=== PATIENT | female | born 1975 | race Two or more races ===

== ENCOUNTER 2020-06-08 09:31 | Outpatient (REF) | payer OTHER, SELFPAY ==
--- NOTE | 2020-06-08 09:41 | XR_ITS ---
EXAMINATION: XR SHOULDER, LEFT XR LUMBAR SPINE CLINICAL INFORMATION: Fall from stairs and steps. COMPARISON: Lumbar spine 04/17/2017 TECHNIQUE: Three views lumbar spine and four views left shoulder. FINDINGS: LUMBAR SPINE: There is normal lumbar lordosis. The vertebral heights and alignment are normal. There is loss of L5-S1 disc height. The rest of the disc heights, vertebral heights and alignment is normal. No visible acute fracture or dislocation. No lytic process. The SI joints are symmetrical. LEFT SHOULDER: There is no visible acute fracture, dislocation or subluxation. The AC joint space is normal. The soft tissues are normal. XR/XR shoulder LT min 2V IMPRESSION: Mild degenerative disc changes L5-S1 disc level. Unremarkable left shoulder exam.
--- NOTE | 2020-06-08 09:41 | XR_ITS ---
EXAMINATION: XR SHOULDER, LEFT XR LUMBAR SPINE CLINICAL INFORMATION: Fall from stairs and steps. COMPARISON: Lumbar spine 04/17/2017 TECHNIQUE: Three views lumbar spine and four views left shoulder. FINDINGS: LUMBAR SPINE: There is normal lumbar lordosis. The vertebral heights and alignment are normal. There is loss of L5-S1 disc height. The rest of the disc heights, vertebral heights and alignment is normal. No visible acute fracture or dislocation. No lytic process. The SI joints are symmetrical. LEFT SHOULDER: There is no visible acute fracture, dislocation or subluxation. The AC joint space is normal. The soft tissues are normal. XR/XR lumbar spine 2-3V IMPRESSION: Mild degenerative disc changes L5-S1 disc level. Unremarkable left shoulder exam.
== END 2020-06-08 09:32 | disposition home or self-care (01) ==
LOC: HO.XRAY 09:31
PROVIDERS: PCP Internal Medicine; Visit Provider General Practice
DX: Z91.81 History of falling (principal)
CPT/HCPCS: 72100; 73030

== ENCOUNTER 2020-06-22 12:18 | Outpatient (REF) | payer OTHER, SELFPAY ==
--- NOTE | 2020-06-22 12:24 | XR_ITS ---
EXAMINATION: XR SACRUM AND COCCYX CLINICAL INFORMATION: Radiculopathy and sacral pain status post fall. COMPARISON: None TECHNIQUE: 2 views of the sacrum and 2 views of the coccyx were obtained. FINDINGS: There is mild loss of L5-S1 disc height with ventral and posterior spondylosis. No acute fracture, dislocation or subluxation seen in the sacrum or the coccygeal region. Presacral, postsacral and coccygeal soft tissues are normal. XR/XR sacrum coccyx min 2V IMPRESSION: Degenerative disc changes L5-S1 disc level with mild ventral spondylosis. No visible acute fracture or dislocation involving the sacrum or coccyx.
== END 2020-06-22 12:19 | disposition home or self-care (01) ==
LOC: HO.XRAY 12:18
PROVIDERS: PCP Internal Medicine; Visit Provider Nurse Practitioner Primary Care
DX: M54.18 Radiculopathy, sacral and sacrococcygeal region (principal); Z91.81 History of falling
CPT/HCPCS: 72220

== ENCOUNTER 2020-11-02 13:45 | Outpatient (REF) | payer OTHER, SELFPAY ==
--- NOTE | ~2020-11-02 | MM_ITS ---
EXAMINATION: MM DIAGNOSTIC DIGITAL BREAST TOMOSYNTHESIS, BILATERAL US DIAGNOSTIC ULTRASOUND BREAST, LEFT CLINICAL INFORMATION: 45-year-old with several months intermittent sharp left breast pain. No erythema, discharge, or palpable abnormality. Also follow-up probable small complicated cyst 2:00 position left breast. Due for yearly. Family history breast cancer, maternal aunt. The lifetime risk of breast cancer based on the Tyrer-Cuzick Model is 11%. COMPARISON: Mammography: 08/28/2018, 01/14/2018, 12/26/2017 (BI-RADS 0), 07/07/2016, targeted left breast ultrasound 01/14/2018, 08/28/2018. TECHNIQUE: Digital breast tomosynthesis is performed in both the craniocaudal and mediolateral oblique views along with computer-aided detection (CAD). Synthesized 2D images are generated from the tomosynthesis. Additional spot right MLO and standard right MLO views are obtained. Ultrasound left breast is targeted to the areas of clinical concern as noted by the patient. Patient is able to point areas of time of imaging. Areas of imaging included lower breasts, 6 to 12:00 position, and upper outer quadrant. Grayscale imaging and color Doppler are performed without and with harmonics. FINDINGS: There are scattered areas of fibroglandular density (ACR BI-RADS breast composition Category b). Parenchymal pattern is similar to prior studies. There is no developing density or interval mass or architectural abnormality. Small asymmetric density upper outer anterior left breast noted previously is no longer demonstrated with certainty. There are no abnormal calcifications. The axilla and skin contours are unremarkable. There is no skin thickening or coarsening of the Manny's ligaments. Ultrasound demonstrates no cystic or solid mass, architectural abnormality, or focal duct ectasia. There is no skin thickening or edema tracking in soft tissue planes. The small tubular complicated cyst previously demonstrated upper outer breast is no longer visualized. Results are discussed with the patient at time of visit. MM/MM tomosynthesis diagnostic BI IMPRESSION: 1. No mammographic evidence of malignancy or inflammatory changes. 2. Unremarkable left breast ultrasound. ASSESSMENT: BI-RADS 2: Benign RECOMMENDATION: 1. Patient's left breast pain should be managed based on the clinical impression. 2. Otherwise, routine annual screening mammography. This patient's information was entered into a reminder system with a target due date for their next mammogram.
== END 2020-11-02 13:46 | disposition home or self-care (01) ==
LOC: HO.MAMMO 13:45
PROVIDERS: Visit Provider Family Medicine
DX: N64.4 Mastodynia (principal)
CPT/HCPCS: 76642; 77062; 77066

== ENCOUNTER 2021-02-01 11:48 | Emergency (ER) | payer OTHER, SELFPAY ==
[2021-02-01 12:57] VITALS: BP 145/85; PULSE 102; RESP 18; TEMP 37.5; O2SAT 100; BMI 31.1
== END 2021-02-01 15:54 | disposition left against medical advice (07) ==
PROVIDERS: Emergency Provider Emergency Medicine; PCP Internal Medicine
DX: M79.10 Myalgia, unspecified site (principal)
CPT/HCPCS: 99281; 99282

== ENCOUNTER 2021-02-02 07:45 | Emergency (ER) | payer OTHER, SELFPAY ==
--- NOTE | ~2021-02-02 | US_ITS ---
EXAMINATION: US ABDOMEN COMPLETE CLINICAL INFORMATION: Nausea and vomiting. Upper abdominal pain. COMPARISON: Abdominal ultrasound dated 07/07/[address] abdomen/pelvis dated 12/19/2014 TECHNIQUE: Real-time imaging of the abdominal viscera. FINDINGS: PANCREAS: The visualized pancreatic head and body are unremarkable. The tail is obscured by overlying bowel gas. ABDOMINAL AORTA: The proximal, mid, and distal segments are normal in caliber. INFERIOR VENA CAVA: Visualized portions are normal. LIVER: Mildly enlarged measuring up to 21.1 cm. The liver contour is normal. There is diffuse increased liver parenchymal echogenicity, consistent with hepatic steatosis. No focal hepatic lesion. There is no intrahepatic biliary duct dilatation seen. GALLBLADDER: Normal. The gallbladder is physiologically distended without evidence of stones, sludge, polyps, wall thickening or pericholecystic fluid. COMMON BILE DUCT: Normal in caliber measuring 0.3 cm in diameter. RIGHT KIDNEY: Redemonstration of a right renal stone measuring up to 0.6 cm, unchanged. No hydronephrosis. No new renal calculi or focal parenchymal lesions. The kidney measures 12.8 cm in maximum dimension. LEFT KIDNEY: Normal. No hydronephrosis. No renal calculi or focal parenchymal lesions. The kidney measures 12.9 cm in maximum dimension. SPLEEN: Normal. The spleen measures 12.9 cm in maximum dimension. FREE FLUID: None. US/US abdomen complete IMPRESSION: 1. Mild hepatomegaly and hepatic steatosis, unchanged. No new hepatic parenchymal lesion or biliary ductal dilatation. 2. Stable right-sided renal stone. No hydronephrosis. 3. Otherwise unremarkable examination.
--- NOTE | ~2021-02-02 | CT_ITS ---
EXAMINATION: CT ABDOMEN AND PELVIS WITH CONTRAST CLINICAL INFORMATION: Right upper and lower quadrant abdominal pain for 3 days. Nausea, vomiting, diarrhea. COMPARISON: Abdominal ultrasound done earlier the same day. Pelvic ultrasound dated 07/05/2018. CT abdomen/pelvis dated 12/19/2014. TECHNIQUE: Multidetector volumetric images were obtained from the superior aspect of the liver through the pubic symphysis following administration 85 mL of Omnipaque 350 intravenous contrast. Sagittal and coronal reformatted images were obtained on the technologist's workstation. Oral contrast: No This CT examination was performed using dose optimization techniques as appropriate, variously including the following: *Automated exposure control *Adjustment of mA and/or kV according to patient size (this includes techniques or standardized protocols for targeted exams where dose is matched to indication/reason for exam; i.e. extremities or head) *Use of iterative reconstruction technique DLP: 658 mGy-cm. FINDINGS: LUNG BASES: The visualized lung bases are unremarkable. LIVER, GALLBLADDER, AND BILIARY TREE: The liver is normal in size and shape. Parenchymal hypoattenuation, consistent with steatosis. No focal hepatic lesion or biliary ductal dilatation is present. The gallbladder is unremarkable with no evidence of radiopaque gallstones, gallbladder wall thickening, or obvious pericholecystic inflammatory changes. PANCREAS: Unremarkable. SPLEEN: Unremarkable. ADRENAL GLANDS: Unremarkable. KIDNEYS AND URETERS: The kidneys are normal in size, shape, and attenuation. Stable right midpole renal stone measuring approximately 0.6 cm and unchanged when compared to the prior examination. This is located approximately 8.2 cm from the posterior axillary line. No new renal or ureteral stone. No hydronephrosis or hydroureter. No perinephric stranding. BLADDER: Partially distended and unremarkable. GASTROINTESTINAL TRACT: There is minimal, vague fat stranding adjacent to the cecum with mild wall thickening, new when compared to the prior examination. Findings could represent mild colitis in the appropriate clinical setting. No evidence of perforation or abscess formation. Unremarkable adjacent appendix. No small or large bowel obstruction. PERITONEAL CAVITY: No intra-abdominal free air or free fluid. ABDOMINAL WALL: No significant hernia is appreciated. LYMPH NODES: Subcentimeter mesenteric lymph nodes adjacent to the cecum, increased in size when compared to the prior examination and may be reactive. No significant lymphadenopathy. VASCULAR: Unremarkable. PELVIC VISCERA: Redemonstration of a fibroid uterus. OSSEOUS STRUCTURES: Unremarkable. CT/CT abdomen pelvis w con IMPRESSION: 1. Minimal, vague fat stranding adjacent to the cecum where there is mild wall thickening, new when compared to the prior examination. Slightly more prominent adjacent subcentimeter mesenteric lymph nodes. Findings could represent mild colitis in the proper clinical setting. No evidence of perforation or abscess formation. Unremarkable adjacent appendix. 2. Hepatic steatosis. No new hepatic parenchymal lesion or biliary ductal dilatation. 3. Redemonstration of a fibroid uterus.
[2021-02-02 08:08] VITALS: BP 152/89; PULSE 107; RESP 16; TEMP 37.5; O2SAT 95
[2021-02-02 08:17] VITALS: BP 152/89; PULSE 104; RESP 16; O2SAT 96; BMI 32.1
[2021-02-02 08:54] VITALS: RESP 18
[2021-02-02] MEDS: 0.9 % Sodium Chloride 1,000 ML 999 ML IVCONT (08:54)
[2021-02-02] MEDS: Morphine Sulfate 4 MG/ML CARTRIDGE IVPUSH (08:54)
[2021-02-02] MEDS: Acetaminophen 325 MG TABLET 975 MG PO (08:54)
[2021-02-02] MEDS: ondansetron HCL 4 MG/2 ML VIAL IVPUSH ×2 (08:54→12:29)
[2021-02-02 08:58] LABS: MANUAL DIFF FLAG NO
[2021-02-02 09:03] LABS: Basophils Percent Auto 0.5 % (0-2); Eosinophils Absolute Auto 0.1 X10*3/uL (0.0-0.4); Eosinophils Percent Auto 0.9 % (0-4); Hematocrit 39.7 % (37-47); Hemoglobin 13.8 g/dl (12.0-16.0); Imm Gran Abs Auto 0.03 X10*3/uL (0.00-0.03); Imm Gran Pct Auto 0.3 % (0.0-0.4); Lymphocytes Absolute Auto 1.1 X10*3/uL (1.2-4.9); Lymphocytes Percent Auto 13.1 % (20-40); Mean Corpuscular HGB Conc 34.8 g/dl (31.0-35.0); Mean Corpuscular Hemoglobin 28.8 pg (27.0-33.0); Mean Corpuscular Volume 82.7 fL (80-98); Monocytes Absolute Auto 0.8 X10*3/uL (0.1-1.2); Monocytes Percent Auto 9.4 % (2-11); Neutrophils Absolute Auto 6.6 X10*3/uL (2.0-8.3); Neutrophils Percent Auto 75.8 % (45-73); Platelet Count 221 X10*3/uL (160-400); Red Cell Distribution Width 13.1 % (11.0-16.0); White Blood Count 8.7 X10*3/uL (4.8-10.8)
[2021-02-02 09:10] LABS: INTERNATIONAL NORM RATIO 1.2 (0.9-1.1); Prothrombin Time 13.5 SEC (9.9-13.0)
[2021-02-02 09:24] LABS: Lactic Acid 0.9 mmol/L (0.5-2.0)
--- NOTE | 2021-02-02 09:32 | ED_ITS ---
HPI - Abdominal Pain General Chief Complaint: General Medical Stated Complaint: vomiting Time Seen by Provider: 02/02/21 08:08 Source: patient Mode of arrival: ambulatory Limitations: no limitations History of Present Illness HPI narrative: 45-year-old female with a past medical history of GERD, hypertension, tachycardia, asthma, anxiety, depression and chronic back pain presenting to the ED with complaints of chills, body ache, fatigue, intermittent headaches, nausea/vomiting with upper abdominal pain and loose stools although not diarrhea for the past 3 days worse today. Reports the pain as sharp stabbing pain in the right upper quadrant/epigastric area. Reports she is vaccinated for COVID. Denies any measured fevers, dizziness, black or bloody emesis, chest pain, shortness of breath, palpitations, dyspnea on exertion, orthopnea, radiation of the abdominal pain, worsening back pain, dysuria, hematuria, abnormal vaginal discharge, black or bloody stools, recent travel or sick contacts or possible bad food exposure or any other symptoms complaints or concerns at this time. MD elicited complaint: abdominal pain Onset (ago): day(s) (Three days worse today) Pain Consistency: constant Location: epigastric, LUQ and RUQ Severity: moderate Quality: stabbing, aching and sharp Radiation: none Migration to: no migration Exacerbating factors: eating Relieving factors: nothing Associated symptoms: nausea, vomiting, diarrhea and chills Related Data Previous Rx's Medication Instructions Recorded omeprazole 10 mg capsule,delayed 10 mg PO DAILY 90 Days #90 cap 06/08/20 release acetaminophen 500 mg tablet 1,000 mg PO QID PRN #14 tab 02/02/21 (Tylenol Extra Strength) ciprofloxacin HCl 750 mg tablet 750 mg PO BID 7 Days #14 tab 02/02/21 metronidazole 500 mg tablet 500 mg PO BID 7 Days #14 tab 02/02/21 (Flagyl) ondansetron HCl 4 mg tablet 4 mg PO Q8H PRN #14 tab 02/02/21 (Zofran) oxycodone 5 mg tablet 5 mg PO BID PRN #10 tab 02/02/21 Allergies Allergy/AdvReac Type Severity Reaction Status Date / Time famotidine [FAMOTIDINE] Allergy Mild HEADACHES Unverified 03/04/20 14:59 ENVIRONMENTAL Allergy Intermediate NASAL Uncoded 03/04/20 14:59 CONGESTION Review of Systems Review of Systems Constitutional : Positive chills/fatigue/malaise, No Weight loss, No Fever, No Night Sweats ENT/Mouth: No ear pain, No sore throat, No Difficulty swallowing Cardiovascular : No Chest Pain, No SOB, No Dyspnea on Exertion, No Orthopnea, No Edema, No Palpitations Respiratory : No Cough, No Sputum, No Wheezing, No Dyspnea Gastrointestinal : Positive nausea/vomiting/abdominal pain/loose stools, No Diarrhea, No blood streaked emesis, No coffee-ground emesis, No gross hematemesis, No blood streak stool, No gross hematochezia, No Melena Genitourinary : No irregular bleeding, No Dysuria, No Urinary Frequency, No Hematuria,No Urinary Incontinence, No Urgency, No Flank Pain Musculoskeletal : No joint pain, No Myalgias, No Joint Swelling Skin : No Skin Lesions, No rash Neuro : No Weakness, No Numbness, No Paresthesias, No Loss of Consciousness, No Dizziness, No Headache Psych : No Social Issues, Heme/Lymph: No Bruising, No Bleeding,No Lymphadenopathy Endocrine : No Polyuria, No Polydipsia, No Temperature Intolerance Yes all other systems are reviewed and are negative Physical Exam Vital Signs: Vital Signs: Last Vital Signs Temp 99.5 F 02/02/21 08:08 Pulse 85 02/02/21 11:17 Resp 16 02/02/21 11:17 BP 115/70 02/02/21 11:17 Pulse Ox 99 02/02/21 11:17 Body Mass Index 32.1 vital signs have been reviewed as normal and appeared to be correct. Blood pressure hypertensive 152/89 Heart rate tachycardic at 107. Respiration rate normal. Temperature normal. Oxygen saturation normal. Appearance: Alert. Oriented X3. No acute distress. Head: Normal external exam. Normocephalic. Eyes: PERRLA. EOMI. Conjunctiva and sclera normal. Eyelids normal. ENT: Pharynx normal. Uvula midline. Moist mucous membranes. Neck: Normal inspection. Neck supple. FROM. No adenopathy. No meningeal signs. CVS: Normal heart rate and rhythm. Heart sound normal. No murmurs noted. Pulses normal throughout. Respiratory: No respiratory distress. Painless inspiration. Breath sounds normal. No wheezes/rales/rhonchi noted. Chest nontender. No accessory muscle usage noted or decreased air movement noted. Abdomen: Soft and moderate tenderness to palpation to epigastric/right upper quadrant/left upper quadrant with guarding. Nondistended. No rigidity. Bowel sounds normal in all 4 quadrants. No distention noted. No organomegaly noted. No visible injury noted. No rebound tenderness. Negative Rovsing sign. Negative obturator's sign. Negative psoas sign. Negative Veloz sign. Back: No CVA tenderness. Full range of motion noted. Skin: Skin warm and dry. Normal skin color. Normal skin turgor. No rashes/lesions/lacerations noted. Extremities: Extremities exhibit normal range of motion. Extremities nontender. Neuro: Oriented X 3. No motor deficit. No sensory deficit. Reflexes normal. Normal steady gait. Course Course Course Narrative: 8:30am - 45-year-old female with a past medical history of GERD, hypertension, tachycardia, asthma, anxiety, depression and chronic back pain presenting to the ED with complaints of chills, body ache, fatigue, intermittent headaches, nausea/vomiting with upper abdominal pain and loose stools although not diarrhea for the past 3 days worse today. Reports the pain as sharp stabbing pain in the right upper quadrant/epigastric area. Plan: Labs, UA, abdominal ultrasound. Provide 4 mg of Zofran and 4 mg of morphine and re-evaluate. Reevaluation(s) Reevaluation #1: - labs reviewed and patient noted to have a potassium of 2.9. BUN of 8. Random glucose 121. ALT 43. Otherwise all other labs are within normal limits. Patient negative for COVID/RSV/flu. - abdominal ultrasound revealed mild hepatomegaly and hepatic steatosis un changed otherwise no other acute processes were noted. Only chronic changes were noted. - when I went back into the room the patient reported that her abdominal pain had moved to the right lower quadrant/right flank therefore at this time will obtain a CT scan of abdomen and pelvis. - will also provide potassium both p.o. and IV. - still awaiting UA. Will re-evaluate. Time: 10:10 Reevaluation #2: - UA within normal limits no evidence of UTI. - CT scan abdomen pelvis with IV contrast revealed mild colitis and chronic ahmadi ges otherwise no other acute processes. - therefore will DC home with Cipro and Flagyl and symptomatic treatment instructions to return if any new or worsening symptoms to follow up with primary care provider. Patient understands agrees with this plan. Time: 12:13 MDM - Abdominal Pain Medical Records Attestation: I reviewed the patient's medical records. Lab Data Attestation: I reviewed the patient's lab results. Result diagrams: 02/02/21 08:50 02/02/21 08:50 Labs: Lab Results 02/02/21 02/02/21 02/02/21 Range/Units 08:49 08:50 08:50 WBC 8.7 (4.8-10.8) X10*3/uL RBC 4.80 (4.20-5.50) X10*6/uL Hgb 13.8 (12.0-16.0) g/dl Hct 39.7 (37-47) % MCV 82.7 (80-98) fL MCH 28.8 (27.0-33.0) pg MCHC 34.8 (31.0-35.0) g/dl RDW 13.1 (11.0-16.0) % Plt Count 221 (160-400) X10*3/uL MPV 10.0 (9.4-12.3) fL Immature Gran % (Auto) 0.3 (0.0-0.4) % Neut % (Auto) 75.8 H (45-73) % Lymph % (Auto) 13.1 L (20-40) % [place] % (Auto) 9.4 (2-11) % Eos % (Auto) 0.9 (0-4) % Baso % (Auto) 0.5 (0-2) % Lymph # (Auto) 1.1 L (1.2-4.9) X10*3/uL [place] # (Auto) 0.8 (0.1-1.2) X10*3/uL Eos # (Auto) 0.1 (0.0-0.4) X10*3/uL Baso # (Auto) 0.0 (0.0-0.2) X10*3/uL Abs Immat Gran (auto) 0.03 (0.00-0.03) X10*3/uL Absolute Neuts (auto) 6.6 (2.0-8.3) X10*3/uL Absolute Nucleated RBC 0.000 (0.0-0.012) X10*3/uL Nucleated RBC % (auto) 0.0 (0.0-0.2) /100WBC PT 13.5 H (9.9-13.0) SEC INR 1.2 H (0.9-1.1) Sodium (135-145) mmol/L Potassium (3.3-5.1) mmol/L Chloride (96-108) mmol/L Carbon Dioxide (22-29) mmol/L Anion Gap (12-20) BUN (9-16) mg/dL Creatinine (0.5-1.4) mg/dL Estim Creat Clear Calc Estimated GFR Random Glucose (60-115) mg/dL Lactic Acid 0.9 (0.5-2.0) mmol/L Calcium (8.4-10.2) mg/dL Magnesium (1.6-2.6) mg/dL Total Bilirubin (0.0-1.0) mg/dL AST (5-31) U/L ALT (0-31) U/L Alkaline Phosphatase (39-117) U/L Total Protein (6.5-8.0) g/dL Albumin (3.5-5.0) g/dL Lipase (8-78) U/L Urine Color Urine Appearance Urine pH (5.0-8.0) Ur Specific [place] (1.005-1.025) Urine Protein (NEG-TRACE) MG/DL Urine Glucose (UA) (NEG) MG/DL Urine Ketones (NEG) MG/DL Urine Blood (NEG) Urine Nitrite (NEG) Ur Leukocyte Esterase (NEG) Coronavirus (PCR) (Negative) Influenza Type A (PCR) (Negative) Influenza Type B (PCR) (Negative) RSV RNA Qual (PCR) (Negative) 02/02/21 02/02/21 02/02/21 Range/Units 08:50 08:51 11:58 WBC (4.8-10.8) X10*3/uL RBC (4.20-5.50) X10*6/uL Hgb (12.0-16.0) g/dl Hct (37-47) % MCV (80-98) fL MCH (27.0-33.0) pg MCHC (31.0-35.0) g/dl RDW (11.0-16.0) % Plt Count (160-400) X10*3/uL MPV (9.4-12.3) fL Immature Gran % (Auto) (0.0-0.4) % Neut % (Auto) (45-73) % Lymph % (Auto) (20-40) % [place] % (Auto) (2-11) % Eos % (Auto) (0-4) % Baso % (Auto) (0-2) % Lymph # (Auto) (1.2-4.9) X10*3/uL [place] # (Auto) (0.1-1.2) X10*3/uL Eos # (Auto) (0.0-0.4) X10*3/uL Baso # (Auto) (0.0-0.2) X10*3/uL Abs Immat Gran (auto) (0.00-0.03) X10*3/uL Absolute Neuts (auto) (2.0-8.3) X10*3/uL Absolute Nucleated RBC (0.0-0.012) X10*3/uL Nucleated RBC % (auto) (0.0-0.2) /100WBC PT (9.9-13.0) SEC INR (0.9-1.1) Sodium 136 (135-145) mmol/L Potassium 2.9 L (3.3-5.1) mmol/L Chloride 96 (96-108) mmol/L Carbon Dioxide 28 (22-29) mmol/L Anion Gap 15 (12-20) BUN 8 L (9-16) mg/dL Creatinine 0.58 (0.5-1.4) mg/dL Estim Creat Clear Calc 115.1 Estimated GFR > 60 Random Glucose 121 H (60-115) mg/dL Lactic Acid (0.5-2.0) mmol/L Calcium 8.7 (8.4-10.2) mg/dL Magnesium 2.0 (1.6-2.6) mg/dL Total Bilirubin 0.5 (0.0-1.0) mg/dL AST 22 (5-31) U/L ALT 43 H (0-31) U/L Alkaline Phosphatase 66 (39-117) U/L Total Protein 6.9 (6.5-8.0) g/dL Albumin 4.0 (3.5-5.0) g/dL Lipase 17 (8-78) U/L Urine Color YELLOW Urine Appearance CLEAR Urine pH 7.0 (5.0-8.0) Ur Specific [place] <= 1.005 (1.005-1.025) Urine Protein TRACE (NEG-TRACE) MG/DL Urine Glucose (UA) NEG (NEG) MG/DL Urine Ketones NEG (NEG) MG/DL Urine Blood NEG (NEG) Urine Nitrite NEG (NEG) Ur Leukocyte Esterase NEG (NEG) Coronavirus (PCR) NEGATIVE (Negative) Influenza Type A (PCR) NEGATIVE (Negative) Influenza Type B (PCR) NEGATIVE (Negative) RSV RNA Qual (PCR) NEGATIVE (Negative) Imaging Data Abdominal ultrasound: Attestation: I personally reviewed and interpreted this imaging study as follows: Radiologist's impression: FINDINGS: PANCREAS: The visualized pancreatic head and body are unremarkable. The tail is obscured by overlying bowel gas. ABDOMINAL AORTA: The proximal, mid, and distal segments are normal in caliber. INFERIOR VENA CAVA: Visualized portions are normal. LIVER: Mildly enlarged measuring up to 21.1 cm. The liver contour is normal. There is diffuse increased liver parenchymal echogenicity, consistent with hepatic steatosis. No focal hepatic lesion. There is no intrahepatic biliary duct dilatation seen. GALLBLADDER: Normal. The gallbladder is physiologically distended without evidence of stones, sludge, polyps, wall thickening or pericholecystic fluid. COMMON BILE DUCT: Normal in caliber measuring 0.3 cm in diameter. RIGHT KIDNEY: Redemonstration of a right renal stone measuring up to 0.6 cm, unchanged. No hydronephrosis. No new renal calculi or focal parenchymal lesions. The kidney measures 12.8 cm in maximum dimension. LEFT KIDNEY: Normal. No hydronephrosis. No renal calculi or focal parenchymal lesions. The kidney measures 12.9 cm in maximum dimension. SPLEEN: Normal. The spleen measures 12.9 cm in maximum dimension. FREE FLUID: None. US/US abdomen complete IMPRESSION: 1. Mild hepatomegaly and hepatic steatosis, unchanged. No new hepatic parenchymal lesion or biliary ductal dilatation. ? 2. Stable right-sided renal stone. No hydronephrosis. ? 3. Otherwise unremarkable examination. CT scan abdomen and pelvis with IV contrast: Attestation: I personally reviewed and interpreted this imaging study as follows: Radiologist's impression: FINDINGS: LUNG BASES: The visualized lung bases are unremarkable.? LIVER, GALLBLADDER, AND BILIARY TREE: The liver is normal in size and shape. Parenchymal hypoattenuation, consistent with steatosis. No focal hepatic lesion or biliary ductal dilatation is present. The gallbladder is unremarkable with no evidence of radiopaque gallstones, gallbladder wall thickening, or obvious pericholecystic inflammatory changes.? PANCREAS: Unremarkable.? SPLEEN: Unremarkable.? ADRENAL GLANDS: Unremarkable.? KIDNEYS AND URETERS: The kidneys are normal in size, shape, and attenuation. Stable right midpole renal stone measuring approximately 0.6 cm and unchanged when compared to the prior examination. This is located approximately 8.2 cm from the posterior axillary line. No new renal or ureteral stone. No hydronephrosis or hydroureter. No perinephric stranding. ? BLADDER: Partially distended and unremarkable.? GASTROINTESTINAL TRACT: There is minimal, vague fat stranding adjacent to the cecum with mild wall thickening, new when compared to the prior examination. Findings could represent mild colitis in the appropriate clinical setting. No evidence of perforation or abscess formation. Unremarkable adjacent appendix. No small or large bowel obstruction. PERITONEAL CAVITY: No intra-abdominal free air or free fluid.? ABDOMINAL WALL: No significant hernia is appreciated.? LYMPH NODES: Subcentimeter mesenteric lymph nodes adjacent to the cecum, increased in size when compared to the prior examination and may be reactive. No significant lymphadenopathy. VASCULAR: Unremarkable. PELVIC VISCERA: Redemonstration of a fibroid uterus.? OSSEOUS STRUCTURES: Unremarkable.? CT/CT abdomen pelvis w con IMPRESSION: 1. Minimal, vague fat stranding adjacent to the cecum where there is mild wall thickening, new when compared to the prior examination. Slightly more prominent adjacent subcentimeter mesenteric lymph nodes. Findings could represent mild colitis in the proper clinical setting. No evidence of perforation or abscess formation. Unremarkable adjacent appendix. ? 2. Hepatic steatosis. No new hepatic parenchymal lesion or biliary ductal dilatation. ? 3. Redemonstration of a fibroid uterus. Discharge Plan Discharge Clinical Impression: Colitis, Acute hypokalemia Patient Disposition: Home, Self-Care Instructions: Colitis (ED), Hypokalemia (ED), Potassium Content of Foods List (ED) Additional Instructions: You should have repeat blood work especially potassium level within 2-3 days by your primary care provider. Prescriptions: New ondansetron HCl [Zofran] 4 mg tablet 4 mg PO Q8H PRN (Reason: nausea and vomiting) Qty: 14 RF: 0 acetaminophen [Tylenol Extra Strength] 500 mg tablet 1,000 mg PO QID PRN (Reason: fever or pain) Qty: 14 RF: 0 oxycodone 5 mg tablet 5 mg PO BID PRN (Reason: pain) Qty: 10 RF: 0 ciprofloxacin HCl 750 mg tablet 750 mg PO BID 7 Days Qty: 14 RF: 0 metronidazole [Flagyl] 500 mg tablet 500 mg PO BID 7 Days Qty: 14 RF: 0 No Action omeprazole 10 mg capsule,delayed release(DR/EC) 10 mg PO DAILY 90 Days Qty: 90 RF: 1 Referrals: Jamila Robledo MD [Primary Care Provider] - 2 days Print Language: Spanish [facility] Past Medical History Attestation statement: The following information was validated with the patient. Medical History Anxiety Asthma Hypertension Tachycardia Social History Social History Alcohol intake: never Use of substances other than those prescribed or required for medical reasons: No Advance Directives: No Advance Directives Information Provided: No Patient : No
[2021-02-02 09:41] LABS: Influenza A PCR NEGATIVE (Negative); Influenza B PCR NEGATIVE (Negative); Resp Syncy Virus RNA Qual PCR NEGATIVE (Negative); SARS COV2 PCR INHOUSE NEGATIVE (Negative)
[2021-02-02 09:47] LABS: Alanine Aminotransferase 43 U/L (0-31); Alkaline Phosphatase 66 U/L (39-117); Aspartate Amino Transferase 22 U/L (5-31); Blood Urea Nitrogen 8 mg/dL (9-16); Calcium 8.7 mg/dL (8.4-10.2); Creatinine Clr Calc Pharmacy 115.1; Estimated Glomerular Filt Rate > 60; Glucose Random 121 mg/dL (60-115); Lipase 17 U/L (8-78); Total Protein 6.9 g/dL (6.5-8.0)
[2021-02-02 09:58] LABS: Anion Gap 15 (12-20); Bilirubin Total 0.5 mg/dL (0.0-1.0); Carbon Dioxide 28 mmol/L (22-29); Chloride 96 mmol/L (96-108); Potassium 2.9 mmol/L (3.3-5.1); Sodium 136 mmol/L (135-145)
[2021-02-02] MEDS: Potassium Chloride/H20 10 MEQ/100 ML PIGGYBACK 100 MEQ IV ×2 (10:32→11:49)
[2021-02-02] MEDS: Potassium Chloride ER 20 MEQ TAB.ER.PRT PO (10:32)
[2021-02-02] MEDS: iohexoL 350 MG/ML 100 ML INFUS..BTL IV (11:11)
[2021-02-02 11:17] VITALS: BP 115/70; PULSE 85; RESP 16; O2SAT 99
[2021-02-02 12:05] LABS: Glucose Urine UA NEG (NEG); Leukocyte Esterase Urine NEG (NEG); Nitrite Urine NEG (NEG); Specific Gravity - Urine <= 1.005 (1.005-1.025); Urine Blood NEG (NEG); Urine Ketones NEG (NEG); Urine Protein TRACE MG/DL (NEG-TRACE)
[2021-02-02 12:08] LABS: Appearance Urine CLEAR; Color Urine YELLOW
[2021-02-02 12:31] LABS: UPreg QC Valid YES; Urine Pregnancy NEGATIVE (NEGATIVE)
== END 2021-02-02 12:49 | disposition home or self-care (01) ==
PROVIDERS: Physician Assistant Medical; Emergency Provider Emergency Medicine; PCP Internal Medicine
DX: K52.9 Noninfective gastroenteritis and colitis, unspecified (principal); E87.6 Hypokalemia; Z20.822 Contact with and (suspected) exposure to COVID-19; R50.9 Fever, unspecified; I10 Essential (primary) hypertension
CPT/HCPCS: 0241U; 36415; 74177; 76700; 80053; 81003; 81025; 83605; 83690; 83735; 85025; 85610; 87040; 96361; 96365; 96366; 96375; 96376; 99284; J2270; J2405; Q9967

== ENCOUNTER → 2021-08-04 08:49 | Outpatient (BNVA) | payer OTHER, SELFPAY | PROVIDERS: PCP Internal Medicine; Referring Provider Internal Medicine; Visit Provider Internal Medicine Gastroenterology | DX: Z12.11 Encounter for screening for malignant neoplasm of colon (principal); K21.9 Gastro-esophageal reflux disease without esophagitis; K59.09 Other constipation; K74.60 Unspecified cirrhosis of liver; K62.5 Hemorrhage of anus and rectum; R10.13 Epigastric pain; R14.0 Abdominal distension (gaseous); R11.0 Nausea; Z80.0 Family history of malignant neoplasm of digestive organs | CPT/HCPCS: 99212 ==

== ENCOUNTER 2021-08-17 12:15 | Outpatient (REF) | payer OTHER, SELFPAY ==
--- NOTE | ~2021-08-17 | XR_ITS ---
EXAMINATION: XR HAND, RIGHT CLINICAL INFORMATION: Fall COMPARISON: None TECHNIQUE: PA, lateral, and oblique views of the right hand. FINDINGS: There is a small bone fragment of the tip of ulnar styloid process likely old fracture. The exact site of origin is not visualized are not known. Otherwise rest the visualized radioulnar carpal alignment intercarpal alignment and carpal metacarpal joint alignment is normal. XR/XR hand RT min 3V IMPRESSION: Small osseous body at the tip of ulnar styloid process likely old fracture fragment or extraosseous bony density. The exact site of origin is not known. There is no acute fracture or dislocation seen. The soft tissues are normal.
== END 2021-08-17 12:16 | disposition home or self-care (01) ==
LOC: HO.HMGCX 12:15
PROVIDERS: Visit Provider Physician Assistant
DX: M79.641 Pain in right hand (principal); W19.XXXA Unspecified fall, initial encounter
CPT/HCPCS: 73130

== ENCOUNTER 2021-11-16 12:57 | Outpatient (REF) | payer OTHER, SELFPAY ==
--- NOTE | ~2021-11-16 | XR_ITS ---
EXAMINATION: XR WRIST, LEFT CLINICAL INFORMATION: Pain left wrist COMPARISON: Radiographs left forearm 02/07/2019 TECHNIQUE: PA, lateral, and oblique views of the left wrist. FINDINGS: No acute or healing fracture, dislocation, or destructive process. The ulnar variance is neutral. Normal bony mineralization. Pronator quadratus fat pad appears normal. No joint narrowing or erosive change or chondrocalcinosis. XR/XR wrist LT min 3V IMPRESSION: Normal left wrist.
== END 2021-11-16 12:58 | disposition home or self-care (01) ==
LOC: HO.XRAY 12:57
PROVIDERS: Absent Provider Internal Medicine; PCP Internal Medicine; Visit Provider Emergency Medicine
DX: M25.532 Pain in left wrist (principal)
CPT/HCPCS: 73110

== ENCOUNTER 2021-11-17 09:48 | Outpatient (REF) | payer OTHER, SELFPAY ==
[2021-11-17 10:42] LABS: C Reactive Protein 0.31 mg/dL (< or = 0.50); Uric Acid 4.8 mg/dL (2.4-5.7)
[2021-11-19 05:02] LABS: Lyme Abs Screen <0.90 index
== END 2021-11-17 09:49 | disposition home or self-care (01) ==
LOC: HO.LAB 09:48
PROVIDERS: Absent Provider Internal Medicine; PCP Internal Medicine; Visit Provider Emergency Medicine
DX: M25.532 Pain in left wrist (principal)
CPT/HCPCS: 36415; 84550; 86140; 86617; 86618

== ENCOUNTER 2022-05-01 10:27 | Outpatient (REF) | payer OTHER, SELFPAY ==
--- NOTE | ~2022-05-01 | MM_ITS ---
EXAMINATION: MM DIAGNOSTIC DIGITAL BREAST TOMOSYNTHESIS, BILATERAL US DIAGNOSTIC ULTRASOUND BREAST, LEFT CLINICAL INFORMATION: Due for yearly. Also recent pain, small skin discoloration, and small superficial nodularity inferior medial left breast near inframammary fold. Skin discoloration has resolved. COMPARISON: Mammography: 11/02/2020, 08/28/2018, 01/14/2018, 12/26/2017, 07/07/2016 TECHNIQUE: Digital breast tomosynthesis is performed in both the craniocaudal and mediolateral oblique views along with computer-aided detection (CAD). Synthesized 2D images are generated from the tomosynthesis. Ultrasound left breast is targeted to the area of clinical concern. Patient is able to point to the area inferior medial breast at time of imaging. Patient also provided digital image of recent skin discoloration. Grayscale imaging and color Doppler are performed without and with harmonics. FINDINGS: There are scattered areas of fibroglandular density (ACR BI-RADS breast composition Category b). Parenchymal pattern is similar to prior exams and there is no developing density or interval mass or architectural abnormality. No abnormal calcifications. No obvious skin thickening or coarsening of the Manny's ligaments. The axilla are unremarkable. Ultrasound left breast demonstrates no cystic or solid mass or architectural abnormality. No definite intradermal lesion. No hyperemia on color Doppler. Visual inspection shows no skin discoloration in the area of recent concern. Results are discussed with the patient at time of visit. MM/MM tomosynthesis diagnostic BI IMPRESSION: -No mammographic evidence of malignancy or inflammatory changes. -Unremarkable left breast ultrasound. ASSESSMENT: BI-RADS 2: Benign RECOMMENDATION: 1. Patient should be managed based on the clinical impression. 2. Otherwise, routine annual screening mammography. This patient's information was entered into a reminder system with a target due date for their next mammogram.
== END 2022-05-01 10:28 | disposition home or self-care (01) ==
LOC: HO.MAMMO 10:27
PROVIDERS: PCP Internal Medicine; Visit Provider Registered Nurse
DX: N63.24 Unspecified lump in the left breast, lower inner quadrant (principal)
CPT/HCPCS: 76642; 77062; 77066

== ENCOUNTER 2022-06-11 06:26 | Emergency (ER) | payer OTHER, SELFPAY ==
[2022-06-11 07:21] VITALS: BP 137/86; PULSE 79; RESP 22; TEMP 36.9; O2SAT 96; BMI 30.9
[2022-06-11 08:23] LABS: Influenza A PCR POSITIVE (Negative); Influenza B PCR NEGATIVE (Negative); Resp Syncy Virus RNA Qual PCR NEGATIVE (Negative); SARS COV2 PCR INHOUSE NEGATIVE (Negative)
--- NOTE | 2022-06-11 08:44 | ED_ITS ---
HPI - URI/Sore Throat General Chief Complaint: Upper Respiratory Symptoms Stated Complaint: congestion, vomiting Time Seen by Provider: 06/11/22 07:48 Source: patient Mode of arrival: ambulatory Limitations: no limitations History of Present Illness HPI Narrative: Patient is a 47-year-old female who presents to emergency department for evaluation of upper respiratory symptoms. She reports 3 days ago she was having stomach upset and a single episode of vomiting. Has not had any further episodes of vomiting, nausea, or abdominal pain. The past 2 days she has been experiencing severe nasal congestion, shortness of breath and wheezing with generalized fatigue. She had trialed Sudafed a single dose yesterday. She states that she had an asthma attack last night which responded to her nebulizer. Denies any known sick contacts. Denies fevers, chills, ear pain, sore throat, chest pain Related Data Previous Rx's Medication Instructions Recorded omeprazole 10 mg capsule,delayed 10 mg PO DAILY 90 days #90 caps 06/08/20 release acetaminophen 500 mg tablet 1,000 mg PO QID PRN fever or pain 02/02/21 (Tylenol Extra Strength) #14 tabs hydrocortisone 2.5 % topical cream 1 appl [place] BID-QID PRN hemorrhoids 08/04/21 with perineal applicator 30 days #30 grams psyllium husk 2.6 gram/4.1 gram 1 tbsp PO DAILY 60 days #480 grams 08/04/21 oral powder oseltamivir 75 mg capsule (Tamiflu) 75 mg PO Q12H 5 days #10 caps 06/11/22 prednisone 20 mg tablet 40 mg PO DAILY 5 days #10 tabs 06/11/22 Allergies Allergy/AdvReac Type Severity Reaction Status Date / Time famotidine [FAMOTIDINE] Allergy Mild HEADACHES Verified 08/17/21 11:23 ENVIRONMENTAL Allergy Intermediate NASAL Uncoded 03/04/20 14:59 CONGESTION Review of Systems Review of Systems: Constitutional: No fever. No chills. No weakness. Positive fatigue. ENT/ Mouth: No Ear Pain, positive Nasal Congestion, no sore throat, No Rhinorrhea, No Swallowing Difficulty Skin: No rash or itching. Cardiovascular: No chest pain. No palpitations. Respiratory: Positive shortness of breath. Positive cough. Positive sputum production. Positive wheezing Gastrointestinal: No nausea. No vomiting. No diarrhea. No abdominal pain. Genitourinary: No burning micturition. No urinary frequency. Neurologic: No headache. No dizziness. No syncope. No numbness or tingling in the extremities. Musculoskeletal: No muscle pain. No back pain. No joint pain or stiffness. Yes all other systems are reviewed and are negative [facility] Past Medical History Attestation statement: The following information was validated with the patient. Source: old records reviewed Medical History Anxiety Asthma Hypertension Tachycardia Social History Social History Alcohol intake: never Advance Directives: No Physical Exam Vital Signs: Vital Signs: Last Vital Signs Temp 98.5 F 06/11/22 07:21 Pulse 79 06/11/22 07:21 Resp 22 H 06/11/22 07:21 BP 137/86 06/11/22 07:21 Pulse Ox 96 06/11/22 07:21 O2 Del Method 06/11/22 07:21 BMI result Body Mass Index 30.9 Vital signs have been reviewed as normal and appeared to be correct. Blood pressure normal.? Heart rate normal.? Respiration rate normal. Temperature normal.? Oxygen saturation normal. Appearance: Alert.?Oriented to person, place and time. No acute distress.?Normal affect. Eyes: Pupils equal, round and reactive to light.? ENT: TM normal bilaterally. Pharynx normal.?? Neck: Normal inspection.? Neck supple.??No cervical adenopathy CVS: Heart sounds normal. Normal heart rate and rhythm.? Pulses normal.?? Respiratory: No respiratory distress.? Lung sounds with expiratory wheezing to the bilateral upper lobes, diminished at the bases Abdomen: Soft and non-tender. Normoactive bowel sounds. Skin: Skin warm and dry.? Normal skin color.? ? Extremities: No lower extremity edema.? Neuro: Moves all extremities spontaneously. Sensation intact bilaterally. No motor deficits. Ambulates with normal steady gait. Medical Decision Making Medical Decision Making MDM Narrative: Patient is a 47-year-old female with a past medical history of asthma, anxiety, GERD, hypertension who presents to the emergency department for evaluation of upper respiratory symptoms. Influenza a testing today is positive. Chest x-ray obtained from initial triage does not appear consistent with pneumonia. She is mildly tachypneic, but without hypoxia, tachycardia, or fever. She speaking clear full sentences, ambulatory with a steady gait. No respiratory distress. She was offered to have albuterol nebulizer while in the emergency department, however she declines stating that she has this at home. Suspect that influenza is causing exacerbation of her asthma, for which she has also been given a prescription for prednisone that was sent to the pharmacy. She is requesting IV medications for nasal congestion. Reassurance provided, patient advised of treatment for influenza including Tamiflu which she agrees to take, reviewed side effects. Advised use of the decongestants to be used with caution given her history of hypertension. Reviewed worrisome signs and symptoms that would warrant re-evaluation in the emergency department. All questions answered. She was discharged in stable condition. Differential Diagnosis Differential Diagnoses: The differential diagnosis associated with the presentation includes (Viral upper respiratory infection, pneumonia, asthma exacerbation) Lab Data MDM Lab Attestation statement: I reviewed the patient's lab results. Labs: Lab Results 06/11/22 Range/Units 07:38 Influenza Type A (PCR) POSITIVE A (Negative) Influenza Type B (PCR) NEGATIVE (Negative) RSV RNA Qual (PCR) NEGATIVE (Negative) SARS-CoV-2 RNA (RT-PCR) NEGATIVE (Negative) Independent Interpretation I performed an independent interpretation of an: Plain X-Ray (I have interpreted the chest x-ray and agree with Radiology impression, no evidence of consolidation or infiltrate that would be consistent with pneumonia) Radiology Impression Discussion of test interpretation with radiology: I have reviewed the radiologist's reading. Radiologist Impression: XR/XR chest 1V IMPRESSION: Unremarkable examination. Discharge Plan Discharge Clinical Impression: Influenza Patient Disposition: Home, Self-Care Additional Instructions: A prescription for Tamiflu and prednisone were sent to your pharmacy. Please continue the use of your inhaler/nebulizer. Be sure to rest, stay well hydrated drinking plenty of fluids, eat small frequent meals. Tylenol/ibuprofen can be used as needed for fever/pain. [id number] cold medications may be helpful as well for symptoms. Saline nasal spray, humidifier may be helpful for nasal congestion. You may return to the emergency department with any new or worsening symptoms or concerns. Follow-up with your primary care provider as needed. Should remain out of school/ work until symptoms have resolved and have been without a fever for 24 hours without the use of Tylenol or ibuprofen. Prescriptions: New oseltamivir [Tamiflu] 75 mg capsule 75 mg PO Q12H 5 Days Qty: 10 0RF prednisone 20 mg tablet 40 mg PO DAILY 5 Days Qty: 10 0RF No Action omeprazole 10 mg capsule,delayed release(DR/EC) 10 mg PO DAILY 90 Days Qty: 90 1RF acetaminophen [Tylenol Extra Strength] 500 mg tablet 1,000 mg PO QID PRN (Reason: fever or pain) Qty: 14 0RF psyllium husk 2.6 gram/4.1 gram powder 1 tbsp PO DAILY 60 Days Qty: 480 3RF Rx Instructions: mix into at least 8 oz of water or juice before administering hydrocortisone 2.5 % cream with perineal applicator 1 appl [place] BID-QID PRN (Reason: hemorrhoids) 30 Days Qty: 30 1RF Referrals: [facility] [Primary Care Provider] - Interventions: ED Discharge Assessment Last Done: 06/11/22 09:03 Discharge Date/Time: 06/11/22 09:04
== END 2022-06-11 09:04 | disposition home or self-care (01) ==
PROVIDERS: Emergency Provider Student in an Organized Health Care Education/Training Program
DX: J10.1 Influenza due to other identified influenza virus with other respiratory manifestations (principal); Z20.822 Contact with and (suspected) exposure to COVID-19
CPT/HCPCS: 0241U; 71045; 99282; 99283

== ENCOUNTER → 2022-06-29 10:37 | Outpatient (BNVA) | payer OTHER, SELFPAY | PROVIDERS: PCP Internal Medicine; Visit Provider Internal Medicine Gastroenterology | DX: R10.9 Unspecified abdominal pain (principal) | CPT/HCPCS: 99212 ==

== ENCOUNTER 2022-06-30 09:42 | Outpatient (REF) | payer OTHER, SELFPAY ==
[2022-06-30 09:55] LABS: MANUAL DIFF FLAG NO
[2022-06-30 10:22] LABS: Basophils Absolute Auto 0.1 X10*3/uL (0.0-0.2); Basophils Percent Auto 0.9 % (0-2); Eosinophils Absolute Auto 0.4 X10*3/uL (0.0-0.4); Hematocrit 42.3 % (37.0-47.0); Hemoglobin 14.4 g/dl (12.0-16.0); Imm Gran Abs Auto 0.02 X10*3/uL (0.00-0.03); Imm Gran Pct Auto 0.4 % (0.0-0.4); Lymphocytes Absolute Auto 2.1 X10*3/uL (1.2-4.9); Mean Corpuscular Hemoglobin 29.3 pg (27.0-33.0); Mean Platelet Volume 10.3 fL (9.4-12.3); Monocytes Absolute Auto 0.4 X10*3/uL (0.1-1.2); Monocytes Percent Auto 6.7 % (2-11); Neutrophils Absolute Auto 2.8 x10*3/uL (2.0-8.3); Platelet Count 246 X10*3/uL (160-400); Red Blood Count 4.92 X10*6/uL (4.20-5.50); Red Cell Distribution Width 13.2 % (11.0-16.0); White Blood Count 5.7 X10*3/uL (4.8-10.8)
[2022-06-30 10:45] LABS: Prothrombin Time 11.8 SEC (10.0-13.1)
[2022-06-30 11:29] LABS: Alanine Aminotransferase 55 U/L (0-31); Albumin Level 4.1 g/dL (3.5-5.0); Alkaline Phosphatase 73 U/L (39-117); Anion Gap 15 (12-20); Aspartate Amino Transferase 40 U/L (5-31); Bilirubin Total 0.5 mg/dL (0.0-1.0); Blood Urea Nitrogen 14 mg/dL (9-16); C Reactive Protein 0.25 mg/dL (< or = 0.50); Calcium 9.3 mg/dL (8.4-10.2); Carbon Dioxide 29 mmol/L (22-29); Chloride 98 mmol/L (96-108); Estimated Glomerular Filt Rate > 60; Glucose Random 148 mg/dL (60-115); Lipase 20 U/L (8-78); Potassium 3.6 mmol/L (3.3-5.1); Sodium 138 mmol/L (135-145); Total Protein 7.2 g/dL (6.5-8.0)
[2022-06-30 11:37] LABS: TSH reflex Free T4 1.09 uIU/mL (0.32-4.0)
[2022-06-30 11:41] LABS: Vitamin D 25-OH Total 18.5 ng/mL (>30)
[2022-06-30 11:49] LABS: Vitamin B12 583 pg/mL (200-900)
[2022-06-30 11:59] LABS: Folate 16.1 ng/mL (> or = 4.0)
== END 2022-06-30 09:43 | disposition home or self-care (01) ==
LOC: HO.LAB 09:42
PROVIDERS: PCP Internal Medicine; Visit Provider Internal Medicine Gastroenterology
DX: K21.9 Gastro-esophageal reflux disease without esophagitis (principal); R10.13 Epigastric pain; R14.0 Abdominal distension (gaseous); K52.9 Noninfective gastroenteritis and colitis, unspecified
CPT/HCPCS: 36415; 80053; 82306; 82607; 82746; 83690; 84443; 85025; 85610; 86140

== ENCOUNTER 2022-06-30 14:36 | Outpatient (REF) | payer OTHER, SELFPAY ==
[2022-07-01 11:35] LABS: H Pylori Breath Test Negative (Negative)
== END 2022-06-30 14:37 | disposition home or self-care (01) ==
LOC: HO.LNP 14:36
PROVIDERS: Visit Provider Internal Medicine Gastroenterology
DX: R10.13 Epigastric pain (principal); K21.9 Gastro-esophageal reflux disease without esophagitis; Z11.3 Encounter for screening for infections with a predominantly sexual mode of transmission
CPT/HCPCS: 83013

== ENCOUNTER → 2022-08-17 12:42 | Outpatient (BNVA) | payer OTHER, SELFPAY | PROVIDERS: PCP Internal Medicine; Visit Provider Internal Medicine Gastroenterology | DX: K52.9 Noninfective gastroenteritis and colitis, unspecified (principal) | CPT/HCPCS: 99212 ==

== ENCOUNTER 2022-09-01 09:23 | Day surgery (SDC) | payer OTHER, SELFPAY ==
[2022-08-28 13:40] VITALS: BMI 32.5
--- NOTE | 2022-08-31 13:14 | HO.ANESPROP2 ---
Documented by User: Ce Nascimento NP 08/31/22 13:15 HPI - Anesthesia Eval Consult details Narrative: 47yo F for Upper Endoscopy and Colonoscopy PMFSH Active Problems Active Problems: All Active Problems (Updated 08/28/22 @ 13:33 by Yazmin Torres RN) GERD (gastroesophageal reflux disease) (Acute) Chronic back pain (Acute) Depression (Acute) Colon cancer screening (Acute) Epigastric pain (Acute) Abdominal bloating (Acute) Nausea (Acute) Rectal bleeding (Acute) Family history of gastric cancer (Acute) Fall (Acute) Abdominal bloating (Acute) Chronic diarrhea (Acute) Sleep apnea (Acute) Tachycardia (Acute) Hypertension (Acute) Asthma (Acute) Anxiety (Acute) Past Medical History Medical History Anxiety Asthma Chronic back pain Depression GERD (gastroesophageal reflux disease) Hypertension Sleep apnea Tachycardia Family History Family History Father Stomach cancer Surgical History Surgical History H/O colonoscopy H/O hand surgery History of esophagogastroduodenoscopy (EGD) Hx of foot surgery Tubal ligation status Social History Social History Household Members: Family Alcohol intake: never Patient Tobacco Use Status: Current everyday Tobacco user Tobacco use type: Cigarette Cigarettes Per Day: 10 Years Smoked: 40 Smoked in Last 30 Days: Yes Use of substances other than those prescribed or required for medical reasons: No Are you DNR?: No Advance Directives: No Advance Directives Information Provided: Yes Meds Allergies Allergy/AdvReac Type Severity Reaction Status Date / Time famotidine [FAMOTIDINE] Allergy Mild HEADACHES Verified 09/01/22 10:53 ENVIRONMENTAL Allergy Intermediate NASAL Uncoded 09/01/22 10:53 CONGESTION Home Medications Medication Instructions Recorded Confirmed Last Taken Type cholecalciferol (vitamin D3) 25 25 mcg PO DAILY 06/29/22 09/01/22 Unknown History mcg (1,000 unit) capsule diltiazem HCl 120 mg 120 mg PO DAILY 06/29/22 08/28/22 09/01/22 08:00 History capsule,extended release 24 hr hydrochlorothiazide 50 mg tablet 50 mg PO QAM 06/29/22 09/01/22 Unknown History lisinopril 5 mg tablet 5 mg PO QAM 06/29/22 09/01/22 Unknown History loratadine 10 mg tablet 10 mg PO DAILY PRN allergies 06/29/22 09/01/22 Unknown History metoprolol succinate 25 mg 12.5 mg PO DAILY 06/29/22 09/01/22 09/01/22 08:00 History tablet,extended release 24 hr montelukast 10 mg tablet 10 mg PO QPM 06/29/22 09/01/22 09/01/22 08:00 History naproxen 500 mg tablet 500 mg PO BID PRN mild pain 06/29/22 09/01/22 07/04/22 History paroxetine HCl 10 mg tablet 10 mg PO DAILY 06/29/22 09/01/22 09/01/22 08:00 History trazodone 50 mg tablet 50 mg PO BEDTIME 06/29/22 09/01/22 Unknown History albuterol sulfate 90 mcg/actuation 2 puff inhalation Q4-6H PRN 08/17/22 09/01/22 09/01/22 08:00 History aerosol inhaler wheezing lorazepam 1 mg tablet 0.5 - 1 tab PO TID PRN 09/01/22 09/01/22 Unknown History Tachyarrhythmias Exam Exam Date and Time: August 31, 2022 1314 Height,Weight and Vital Signs: Height 5 ft 3 in Weight 83.461 kg Pertinent Lab Results Pertinent Lab Results: Laboratory Tests 06/30/22 06/30/22 09:54 09:54 WBC 5.7 Hgb 14.4 Hct 42.3 Plt Count 246 Sodium 138 Potassium 3.6 D Chloride 98 Carbon Dioxide 29 BUN 14 Creatinine 0.64 Assessment and Plan Assessment Anesthesia Assessment: Chart Reviewed Documented by User: Meredith Yang MD 09/01/22 13:59 PMFSH Active Problems Active Problems: All Active Problems (Updated 08/28/22 @ 13:33 by Yazmin Torres RN) GERD (gastroesophageal reflux disease) (Acute) Chronic back pain (Acute) Depression (Acute) Colon cancer screening (Acute) Epigastric pain (Acute) Abdominal bloating (Acute) Nausea (Acute) Rectal bleeding (Acute) Family history of gastric cancer (Acute) Fall (Acute) Abdominal bloating (Acute) Chronic diarrhea (Acute) Sleep apnea (Acute)-Not using CPAP machine Tachycardia (Acute) Hypertension (Acute) Asthma (Acute). Used inhalers this morning. Anxiety (Acute) Smoker. Last cigarette yesterday Patient with sniffles, runny nose. States due to allergies. Increased BMI Past Medical History Medical History Anxiety Asthma Chronic back pain Depression GERD (gastroesophageal reflux disease) Hypertension Sleep apnea Tachycardia Family History Family History Father Stomach cancer Family history of problems with anesthesia: No Surgical History Surgical History H/O colonoscopy H/O hand surgery History of esophagogastroduodenoscopy (EGD) Hx of foot surgery Tubal ligation status History of Problems with Anesthesia: No Social History Social History Household Members: Family Alcohol intake: never Patient Tobacco Use Status: Current everyday Tobacco user Tobacco use type: Cigarette Cigarettes Per Day: 10 Years Smoked: 40 Smoked in Last 30 Days: Yes Use of substances other than those prescribed or required for medical reasons: No Are you DNR?: No Advance Directives: No Advance Directives Information Provided: Yes Meds Allergies Allergy/AdvReac Type Severity Reaction Status Date / Time famotidine [FAMOTIDINE] Allergy Mild HEADACHES Verified 09/01/22 10:53 ENVIRONMENTAL Allergy Intermediate NASAL Uncoded 09/01/22 10:53 CONGESTION Home Medications Medication Instructions Recorded Confirmed Last Taken Type cholecalciferol (vitamin D3) 25 25 mcg PO DAILY 06/29/22 09/01/22 Unknown History mcg (1,000 unit) capsule diltiazem HCl 120 mg 120 mg PO DAILY 06/29/22 08/28/22 09/01/22 08:00 History capsule,extended release 24 hr hydrochlorothiazide 50 mg tablet 50 mg PO QAM 06/29/22 09/01/22 Unknown History lisinopril 5 mg tablet 5 mg PO QAM 06/29/22 09/01/22 Unknown History loratadine 10 mg tablet 10 mg PO DAILY PRN allergies 06/29/22 09/01/22 Unknown History metoprolol succinate 25 mg 12.5 mg PO DAILY 06/29/22 09/01/22 09/01/22 08:00 History tablet,extended release 24 hr montelukast 10 mg tablet 10 mg PO QPM 06/29/22 09/01/22 09/01/22 08:00 History naproxen 500 mg tablet 500 mg PO BID PRN mild pain 06/29/22 09/01/22 07/04/22 History paroxetine HCl 10 mg tablet 10 mg PO DAILY 06/29/22 09/01/22 09/01/22 08:00 History trazodone 50 mg tablet 50 mg PO BEDTIME 06/29/22 09/01/22 Unknown History albuterol sulfate 90 mcg/actuation 2 puff inhalation Q4-6H PRN 08/17/22 09/01/22 09/01/22 08:00 History aerosol inhaler wheezing lorazepam 1 mg tablet 0.5 - 1 tab PO TID PRN 09/01/22 09/01/22 Unknown History Tachyarrhythmias Exam Height,Weight and Vital Signs: Height 5 ft 3 in Weight 83.461 kg Vital Signs Temp Pulse Resp BP Pulse Ox O2 Del Method 09/01/22 11:00 98.8 F 73 16 146/80 H 95 Room Air Narrative Narrative: Proptosis Airway Mallampati Class: III TM Dist: >3cm Neck ROM: Full Loose/Missing/Broken Teeth: No (Denies broken or loose teeth) Heart: RRR Lungs: Breathing Shallowly. No audible wheezes but will still have patient get respiratory treatment Other: Will treat with glycopyrrolate pre-op Assessment and Plan Assessment Anesthesia Assessment: Anesthesia Plan Discussed Final Anesthetic Review Family History of Problems with Anesthesia: No History of Problems with Anesthesia: No NPO: Yes ASA Class: III Final Preanesthetic Review: No Changes in Pt Med Stat, Meds/Allgs Chart Reviewed, Consent Obtained/Reviewed and Anes Risks/Benef Reviewed Patient Risk: Intermediate Procedure Risk: Low Assessment/Block/Sedation in SS: Assess/Block/Sedation-SS Anesthetic Plan Anesthetic Plan: MAC: Disposition: Standard PACU
[2022-09-01 10:57] VITALS: BMI 30.1
[2022-09-01 11:00] VITALS: BP 146/80; PULSE 73; RESP 16; TEMP 37.1; O2SAT 95
[2022-09-01] MEDS: Lactated Ringers 1,000 ML 100 ML IVCONT (11:18)
[2022-09-01] MEDS: Albuterol Sulfate (0.083%) 2.5 MG/3 ML VIAL.NEB INHALE (12:31)
[2022-09-01 12:33] VITALS: PULSE 62; RESP 18; O2SAT 98
--- NOTE | 2022-09-01 12:42 | MHC.SHP ---
Pre-Procedural Eval Section A Date of Service: 09/01/22 The patient is an INPATIENT: No Changes since office visit: Yes Cold of Flu in the past 2 weeks and Yes Patient answered all questions; No New Medical Problems and No Changes in Medication The History & Physical has been completed within 30 days and I have reviewed it.: Yes Section B Chief Complaint: Abdominal distension (gaseous),Noninfective gastro Allergies: Allergies Allergy/AdvReac Type Severity Reaction Status Date / Time famotidine [FAMOTIDINE] Allergy Mild HEADACHES Verified 09/01/22 10:53 ENVIRONMENTAL Allergy Intermediate NASAL Uncoded 09/01/22 10:53 CONGESTION Plan I have reviewed the history and physical and performed a pertinent physical examination on my patient. No changes have occurred unless specified. Time Spent With Patient Time: Total time managing care of this patient today ____ minutes.
--- NOTE | 2022-09-01 12:49 | P.BOP_ITS ---
Brief Operative Note Date of Service: 09/01/22 Pre-op diagnosis: Heartburn, upper abdominal pain with bloating, nausea, diarrhea? alternating with constipation. Patient also gives a history of intermittent episodes of self-limited rectal bleeding. Abnormal CT scan of the cecum (fat stranding/?colitis) Post-op diagnosis: other (GERD, Gastritis, GERD, colon polyps, diverticulosis, hemorrhoids) Procedure: FLEXIBLE TRANSORAL UPPER GASTROINTESTINAL ENDOSCOPY WITH BIOPSIES AND COLONOSCOPY TILL CECUM WITH BIOPSIES AND SNARE POLYPECTOMY Surgeon: Batsheva Rees MD Anesthesia: MAC Was an Hoop Coiling Machine Operator used for this Procedure?: Yes Hoop Coiling Machine Operator: Elisha Lainez Estimated blood loss (mL): 2 Pathology: other (A: small bowel r/o celiac B: antrum r/o H. pylori C: gastric ulcer D: ascending colon polyp E: right colon bxs r/o microscopic colitis F: descending colon polyp at 60 ) Condition: stable Disposition: PACU
--- NOTE | 2022-09-01 12:50 | W.PM.OPN ---
Operative Note Operative Note Date of Service: 09/01/22 Narrative: Pre-op diagnosis: Heartburn, upper abdominal pain with bloating, nausea, diarrhea? alternating with constipation. Patient also gives a history of intermittent episodes of self-limited rectal bleeding. Abnormal CT scan of the cecum (fat stranding/?colitis) Post-op diagnosis:?other (GERD, Gastritis, GERD, colon polyps, diverticulosis, hemorrhoids) Surgeon: Batsheva Rees MD Anesthesia:?MAC FLEXIBLE TRANSORAL UPPER GASTROINTESTINAL ENDOSCOPY WITH BIOPSIES AND COLONOSCOPY TILL CECUM WITH BIOPSIES AND SNARE POLYPECTOMY UPPER ENDOSCOPY Consent: Indications for the procedure and potential complications of bleeding, perforation, reaction to medications and missed diagnosis were discussed with the patient and informed consent was obtained. Instrument: Olympus GIF H 190 mid size upper endoscope Monitoring: Vital signs and clinical assessment, continuous EKG monitoring, Pulse oximetry, Carbon Dioxide monitoring and blood pressure monitoring were done throughout the procedure. Procedure: The patient was placed in the left lateral decubitis position and pre-procedure medications were administered and a bite block was placed. The endoscope was inserted into the mouth and advanced under direct vision to the third part of duodenum. A careful inspection was made as the upper endoscope was withdrawn including a retroflexed examination of the proximal stomach; Findings and interventions are described below. Findings: Larynx: Normal Esophagus: GE junction at 38 cms. No esophagitis or Murillo's. Stomach: Moderate gastric erythema. Biopsies were obtained. A 5 to 6 mm superficial ulcer overlying a gastric fold 4-5 cms distal to the cardia (biopsied). Grade 2 flap valve on retroflexed examination of the cardia. Duodenum: Normal bulb and descending duodenum. Biopsies were obtained from 3rd part of the duodenum to check for celiac disease Intervention: Biopsies as noted above COLONOSCOPY PROCEDURE NOTE Consent: Indications for the procedure and potential complications of bleeding, perforation, reaction to medications and missed diagnosis were discussed with the patient and informed consent was obtained. Instrument: Olympus PCF H 190 L variable stiffness pediatric colonoscope Monitoring: Vital signs and clinical assessment, intermittent blood pressure monitoring, continuous EKG monitoring, Pulse oximetry and Carbon Dioxide monitoring were done throughout the procedure. Colon withdrawl time was 25 minutes. Procedure: The patient was placed in the left lateral decubitis position and pre-procedure medications were administered. After a digital rectal examination of the ano-rectum, the video colonoscope was inserted into the rectum and advanced through the colon to the cecum. The colonoscope was slowly withdrawn in a retrograde panoramic fashion and the colon mucosa was carefully examined including a retroflexed view of the rectum. Findings and interventions are described below. Procedure Difficulty: : Without difficulty. There was some spasm in the colon Findings: Terminal Ileum: Not evaluated Cecum: Normal Ascending Colon: A 10 mm sessile polyp in mid AC - removed with a cold snare Transverse Colon: Normal Descending Colon: A 12 - 15 mm sessile polyp at 60 cms - removed with a hot snare. Moderate diverticulosis Sigmoid Colon: Moderate diverticulosis Rectum: A few 2-5 mm diminutive appearing polyps - 1 removed with a cold biopsy. Ano-rectum: Moderate internal hemorrhoids Colon preparation: Good Impression and Post Procedure Diagnosis: Endoscopy Findings: STOMACH: Moderate gastric erythema. Biopsies were obtained. A 5 to 6 mm superficial ulcer overlying a gastric fold 4-5 cms distal to the cardia (biopsied) and Grade 2 flap valve on retroflexed examination of the cardia. DUODENUM: Normal - biopsied to check for celiac disease Colonoscopy Findings: Three small to medium sized polyps removed. Random biopsies were obtained from right and left colon to check for microscopic colitis Moderate diverticulosis seen in the left colon Moderate hemorrhoids on retroflexed exam. Plan: Patient to schedule a FU appointment in the GI Clinic with Batsheva Rees M.D.. Repeat Colonoscopy interval based on path results - in 3-5 years if polyps are adenomatous and 10 years if polyps are hyperplastic. Above findings were reviewed with the patient and PUD, colon polyps and diverticulosis handouts were given in the discharge area ADDENDUM: BIOPSIES SHOWED: A.? Small bowel, biopsy:? Duodenal mucosa with preserved villi and no specific change; no evidence of celiac disease. B.? Gastric antrum, biopsy:? Gastric antral mucosa with minimal chronic inactive gastritis; negative for H pylori, intestinal metaplasia and dysplasia. C.? Gastric ulcer, biopsy:? Gastric body mucosa with lamina propria hemorrhage and minimal chronic inactive gastritis; negative for H pylori, intestinal metaplasia and dysplasia.? D.? Colon, ascending, polyp:? Tubular adenoma; negative for high-grade dysplasia and carcinoma. E.? Colon, right, biopsy:? Colonic mucosa with lymphoid aggregates and no specific change; no evidence of microscopic colitis. F.? Colon, descending at 60 cm, polyp:? Colonic mucosa with marked thermal artifact and prominent lymphoid aggregates; negative for adenomatous dysplasia.? G.? Colon, left, biopsy:? Colonic mucosa with no specific change; no evidence of microscopic colitis. H.? Colon, rectal polyp:? Hyperplastic polyp.
[2022-09-01 14:18] VITALS: BP 158/89; PULSE 94; RESP 18; TEMP 37.4; O2SAT 100
[2022-09-01 14:33] VITALS: BP 158/94; PULSE 85; RESP 16; TEMP 36.6; O2SAT 100
== END 2022-09-01 14:52 | disposition home or self-care (01) ==
PROVIDERS: PCP Internal Medicine; Visit Provider Internal Medicine Gastroenterology
PROC: (CPT 45385; principal; 2022-09-01 12:10)
DX: Z12.2 Encounter for screening for malignant neoplasm of respiratory organs (principal); D12.2 Benign neoplasm of ascending colon; K63.5 Polyp of colon; K62.1 Rectal polyp; K57.30 Diverticulosis of large intestine without perforation or abscess without bleeding; K64.8 Other hemorrhoids; K52.9 Noninfective gastroenteritis and colitis, unspecified; K59.00 Constipation, unspecified; Z80.0 Family history of malignant neoplasm of digestive organs; K76.0 Fatty (change of) liver, not elsewhere classified; R14.0 Abdominal distension (gaseous); K29.50 Unspecified chronic gastritis without bleeding; B96.81 Helicobacter pylori [H. pylori] as the cause of diseases classified elsewhere; K25.9 Gastric ulcer, unspecified as acute or chronic, without hemorrhage or perforation; K21.9 Gastro-esophageal reflux disease without esophagitis; G47.33 Obstructive sleep apnea (adult) (pediatric); I10 Essential (primary) hypertension; J45.909 Unspecified asthma, uncomplicated; R00.0 Tachycardia, unspecified; F41.1 Generalized anxiety disorder; Z79.899 Other long term (current) drug therapy; Z79.1 Long term (current) use of non-steroidal anti-inflammatories (NSAID); Z88.8 Allergy status to other drugs, medicaments and biological substances; F17.210 Nicotine dependence, cigarettes, uncomplicated
CPT/HCPCS: 45385; 45380; 43239; 88305; 88342; 94640; J2250; J3010

== ENCOUNTER 2023-03-09 10:50 | Outpatient (REF) | payer OTHER, SELFPAY ==
--- NOTE | ~2023-03-09 | XR_ITS ---
EXAMINATION: XR RIBS, RIGHT CLINICAL INFORMATION: Pain status post fall COMPARISON: Chest radiograph from 06/11/2022 TECHNIQUE: 4 views of the right ribs were obtained. FINDINGS: No focal consolidation. No pneumothorax. Trachea is midline. Heart and mediastinal silhouette is not enlarged. No large pleural effusion. Soft tissues are unremarkable. Osseous structures are intact. No acute visualized right-sided rib fractures. XR/XR ribs RT min 3V w CXR1V IMPRESSION: 1. No acute cardiopulmonary process. 2. No acute visualized right-sided rib fractures.
--- NOTE | ~2023-03-09 | XR_ITS ---
EXAMINATION: XR HIP, RIGHT CLINICAL INFORMATION: Pain status post fall COMPARISON: None available. TECHNIQUE: Two views of the right hip. FINDINGS: No acute visible fracture or dislocation. Joint spaces and alignment are maintained. Soft tissues are unremarkable. XR/XR hip RT min 2V IMPRESSION: No acute visible fracture or dislocation.
== END 2023-03-09 10:51 | disposition home or self-care (01) ==
LOC: HO.HHCX 10:50
PROVIDERS: Visit Provider Family Medicine
DX: R07.81 Pleurodynia (principal); M25.551 Pain in right hip; Z91.81 History of falling
CPT/HCPCS: 71101; 73502

== ENCOUNTER 2023-07-18 11:08 | Outpatient (AMB) | payer OTHER, SELFPAY ==
--- NOTE | 2023-07-18 11:21 | A.OFFVIS_ITS ---
Intake Vital Signs 07/18/23 11:29 Height 5 ft 2 in Intake Visit Reasons: hemorrhoids Intake Note: This patient presents for an assessment for hemorrhoids. Pt c/o; reports occasional rectal bleeding, report epigastric pain when has an episode of rectal bleeding and feels nausea, reports constipation and loose stools. Binding Machine Operator Required: No Accompanied by: Self / Same As Patient Allergies famotidine [FAMOTIDINE] Allergy (Mild, Verified 07/18/23 11:25) HEADACHES ENVIRONMENTAL Allergy (Intermediate, Uncoded 07/18/23 11:25) NASAL CONGESTION Medication List - Last Reconciled 07/18/23 by Magno Mendiola MD acetaminophen (Tylenol Extra Strength) 1,000 mg (2 x 500 mg) PO QID PRN albuterol sulfate 90 mcg/actuation 2 puffs inhalation Q4-6H PRN Bifidobacterium infantis (Align) 4 mg PO DAILY 90 days cetirizine (Zyrtec) 10 mg PO DAILY PRN cholecalciferol (vitamin D3) 25 mcg PO DAILY diltiazem HCl 120 mg PO DAILY hydrochlorothiazide 50 mg PO QAM hydrocortisone 2.5% 1 appl GA BID-QID PRN 30 days Lactobacillus rhamnosus GG (Culturelle) 1 cap PO DAILY 90 days lisinopril 5 mg PO QAM loratadine 10 mg PO DAILY PRN lorazepam 0.5 - 1 tabs PO TID PRN metoprolol succinate ER 12.5 mg PO DAILY montelukast 10 mg PO QPM naproxen 500 mg PO BID PRN omeprazole 10 mg PO DAILY 90 days omeprazole 20 mg PO DAILY 90 days ondansetron 4 mg PO Q8H PRN 30 days paroxetine HCl 10 mg PO DAILY trazodone 50 mg PO BEDTIME HPI hemorrhoids HPI Details 48-year-old female referred for hemorrho id issues. She says that she has had hemorrhoids for almost 10 years now. She describes periodic swelling, pain and frequent bleeding. He says sometimes she would see blood for 4 straight days after bowel movements She had a colonoscopy last year showing hemorrhoids . She had some small polyps removed at that time as well. She denies being constipated. [facility] Medical History (Updated 07/18/23 @ 11:42 by Magno Mendiola MD) Bleeding hemorrhoids Chronic back pain Sleep apnea Depression GERD (gastroesophageal reflux disease) Anxiety Hypertension Asthma Tachycardia Surgical History Tubal ligation status H/O hand surgery Hx of foot surgery History of esophagogastroduodenoscopy (EGD) H/O colonoscopy Family History Father Stomach cancer Social History Household Members: Family Alcohol intake: never Patient Tobacco Use Status: Current everyday Tobacco user Tobacco use type: Cigarette Cigarettes Per Day: 10 Years Smoked: 40 Review of Systems Const Denies chills and Denies fever(s) Card Denies chest pain, Denies dyspnea and Denies dyspnea on exertion Resp Denies cough, Denies dyspnea and Denies dyspnea on exertion GI Reports hematochezia and Denies change in bowel habits Denies hematuria Musc Denies back pain and Denies limited range of motion Neuro Denies focal weakness and Denies convulsions Psych Denies depression and Denies mood swings Physical Exam Const General: comfortable and no acute distress Orientation/consciousness: patient oriented x3 Neck Neck: Yes no lymphadenopathy Resp Auscultation: clear to auscultation bilaterally Cardio Rhythm: regular rhythm GI Other: Rectal exam shows external hemorrhoids more than the left Palpation (GI): Soft to palpation, nontender and no guarding Neuro General: patient oriented x3 Office Procedures Anoscopy She was placed in regina-knife position. The anoscope was gently inserted. A full examination of the anal canal was done. A mix of internal external hemorrhoids, moderate-sized was seen on the left side. Another column, also mix was seen on the right side. There were no other lesions. There was no b leeding. There was no fissure. There was no induration. [id number] Assessment & Plan Assessment & Plan (1) Bleeding hemorrhoids: Code(s): K64.9 - Unspecified hemorrhoids Plan: She describes frequent bleeding with her hemorrhoids along with some episodes of pain and swelling. She is thinking of proceeding with hemorrhoidectomy because of these symptoms. I explained to her the technique of hemorrhoidectomy. I discussed the risks including but not limited to bleeding, infections, postop pain, as well as the benefits and alternatives. I reviewed with her what to expect postoperatively She says she will talk to her before deciding on whether to proceed with hemorrhoidectomy. She will call the office once she makes a decision. Coding Level of Care Code New Pt Level 3 (02497) Diagnoses Bleeding hemorrhoids K64.9 CPT Codes Details - CPT: 26144-Hseiyefn ([id number])
== END 2023-07-18 11:47 | disposition home or self-care (01) ==
PROVIDERS: PCP Internal Medicine; Visit Provider Surgery
DX: K64.8 Other hemorrhoids (principal)
CPT/HCPCS: 46600; 99203

== ENCOUNTER → 2023-07-18 11:08 | Outpatient (BNVA) | payer OTHER, SELFPAY | PROVIDERS: PCP Internal Medicine; Visit Provider Surgery | DX: K64.4 Residual hemorrhoidal skin tags (principal); K64.8 Other hemorrhoids | CPT/HCPCS: 46600; 99202 ==

== ENCOUNTER 2024-01-08 12:02 | Outpatient (REF) | payer OTHER, SELFPAY ==
[2024-01-08 13:09] LABS: MANUAL DIFF FLAG NO
[2024-01-08 13:23] LABS: Basophils Absolute Auto 0.1 X10*3/uL (0.0-0.2); Basophils Percent Auto 0.9 % (0-2); Eosinophils Absolute Auto 0.4 X10*3/uL (0.0-0.4); Eosinophils Percent Auto 5.6 % (0-4); Hematocrit 41.7 % (37.0-47.0); Hemoglobin 14.4 g/dl (12.0-16.0); Imm Gran Abs Auto 0.02 X10*3/uL (0.00-0.03); Imm Gran Pct Auto 0.3 % (0.0-0.4); Lymphocytes Absolute Auto 2.4 X10*3/uL (1.2-4.9); Lymphocytes Percent Auto 35.1 % (20-40); Mean Corpuscular HGB Conc 34.5 g/dl (31.0-35.0); Mean Corpuscular Hemoglobin 29.3 pg (27.0-33.0); Mean Corpuscular Volume 84.9 fL (80.0-98.0); Mean Platelet Volume 10.4 fL (9.4-12.3); Monocytes Absolute Auto 0.4 X10*3/uL (0.1-1.2); Monocytes Percent Auto 6.3 % (2-11); Neutrophils Absolute Auto 3.5 x10*3/uL (2.0-8.3); Neutrophils Percent Auto 51.8 % (45-73); Platelet Count 258 X10*3/uL (160-400); Red Blood Count 4.91 X10*6/uL (4.20-5.50); Red Cell Distribution Width 13.1 % (11.0-16.0); White Blood Count 6.8 X10*3/uL (4.8-10.8)
[2024-01-08 13:30] LABS: Estimated Average Glucose 137 mg/dL; Hemoglobin A1C 171.1446 umol/L; Hemoglobin A1c % 6.4 % (<6.0)
[2024-01-08 14:13] LABS: Alanine Aminotransferase 57 U/L (0-31); Alkaline Phosphatase 70 U/L (39-117); Anion Gap 14 (12-20); Aspartate Amino Transferase 43 U/L (5-31); Bilirubin Direct 0.2 mg/dL (0.0-0.5); Bilirubin Total 0.7 mg/dL (0.0-1.0); Blood Urea Nitrogen 13 mg/dL (9-16); Calcium 9.4 mg/dL (8.4-10.2); Carbon Dioxide 29 mmol/L (22-29); Chloride 100 mmol/L (96-108); Cholesterol 187 mg/dL (<200); Estimated Glomerular Filt Rate > 60; Glucose Random 117 mg/dL (60-115); HDL Cholesterol 40 mg/dL (>40); LDL Cholesterol Calculated 119 mg/dL (<100); Sodium 140 mmol/L (135-145); Total Protein 7.1 g/dL (6.5-8.0); Triglycerides 143 mg/dL (<150)
[2024-01-08 14:19] LABS: Vitamin D 25-OH Total 36.1 ng/mL (>30)
== END 2024-01-08 12:03 | disposition home or self-care (01) ==
LOC: HO.HHCL 12:02
PROVIDERS: Visit Provider Internal Medicine
DX: I10 Essential (primary) hypertension (principal)
CPT/HCPCS: 36415; 80048; 80061; 80076; 82306; 83036; 85025

== ENCOUNTER 2024-02-08 13:55 | Outpatient (REF) | payer OTHER, SELFPAY ==
[2024-02-08 16:22] LABS: Anion Gap 17 (12-20); Blood Urea Nitrogen 17 mg/dL (9-16); Calcium 9.8 mg/dL (8.4-10.2); Carbon Dioxide 27 mmol/L (22-29); Chloride 99 mmol/L (96-108); Estimated Glomerular Filt Rate > 60; Glucose Random 237 mg/dL (60-115); Potassium 3.5 mmol/L (3.3-5.1); Sodium 139 mmol/L (135-145)
== END 2024-02-08 13:56 | disposition home or self-care (01) ==
LOC: HO.HHCL 13:55
PROVIDERS: Visit Provider Internal Medicine
DX: E87.6 Hypokalemia (principal)
CPT/HCPCS: 36415; 80048

== ENCOUNTER 2024-04-03 10:47 | Outpatient (AMB) | payer OTHER, SELFPAY ==
--- NOTE | 2024-04-03 10:49 | A.OFFVIS_ITS ---
Vital Signs 04/03/24 10:54 Height 5 ft 2 in Weight 144 lb BMI 26.3 BP 130/79 Blood Pressure Location Lt brachial Position Sitting Pulse 75 Intake Visit Reasons: Gastroesophageal reflux disease (GERD) Intake Note: Patient follow up for GERD and abdominal bloating. Patient cc: daily nauseas, abdominal pain with bloating, acid reflex on and off, diarrhea and sometimes constipation with hemorrhoids on and off. Denies any other GI issues. 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 Accompanied by: Self / Same As Patient Allergies famotidine [FAMOTIDINE] Allergy (Mild, Verified 04/03/24 10:48) HEADACHES ENVIRONMENTAL Allergy (Intermediate, Uncoded 07/18/23 11:25) NASAL CONGESTION Medication List - Last Reconciled 04/03/24 by Batsheva Rees MD acetaminophen (Tylenol Extra Strength) 1,000 mg (2 x 500 mg) PO QID PRN albuterol sulfate 90 mcg/actuation 2 puffs inhalation Q4-6H PRN Bifidobacterium infantis (Align) 4 mg PO DAILY 90 days cetirizine (Zyrtec) 10 mg PO DAILY PRN cholecalciferol (vitamin D3) 25 mcg PO DAILY diltiazem HCl CD 120 mg PO DAILY hydrochlorothiazide 50 mg PO QAM hydrocortisone 2.5% 1 appl PA BID-QID PRN 30 days Lactobacillus rhamnosus GG (Culturelle) 1 cap PO DAILY 90 days lisinopril 5 mg PO QAM loratadine 10 mg PO DAILY PRN lorazepam 0.5 - 1 tabs PO TID PRN metoprolol succinate ER 12.5 mg PO DAILY montelukast 10 mg PO QPM naproxen 500 mg PO BID PRN omeprazole 20 mg PO DAILY 90 days ondansetron 4 mg PO Q8H PRN 90 days paroxetine HCl 10 mg PO DAILY trazodone 50 mg PO BEDTIME HPI HPI Gastroesophageal reflux disease (GERD): Details: GI CLINIC VISIT FOR THIS 48-YEAR-OLD ARABIC-SPEAKING FEMALE FOR FU OF CONSTIPATION, HEMORRHOIDS AND FATTY LIVER Last clinic visit was in August, CHRONIC ILLNESSES: Asthma, DM, Hypertension, Sleep apnea, PUD, tachycardia ?TODAY'S VISIT Patient cc: daily nauseas, abdominal pain with bloating, acid reflex on and off, diarrhea and sometimes constipation with hemorrhoids on and off. Denies any other GI issues. Has soft stools - sometimes up to 10 BMs in a day and sometimes mucous. Denies association with diet - can be worse when she eats sauces Can notice blood (Due to hemorrhoids) when she poops a lot. Has a have a BM after she eats. Has constipation once a month Diagnosed with DM a month ago PAST VISITS: Complains of nausea after she eats or drinks anything. Has to have a BM when she eats or drinks. H Pylori was negative. Continues to have upto 10 BMs a day. Can have frequent gagging. Had the flu and an asthma attack on xmas soo Has been eating less and has gained weight. Notes more nausea associated with retching Has early satiety. If she drinks water or any food she has to run to the bathroom with urgency and loose bowel movements. Can have up to 10 loose BMs a day Diarrhea triggers the hemorrhoids and she notes rectal bleeding. Denies constipation. Notes bloating associated with abdominal distension in the afternoon. Has gained wt. Has to eat otherwise gets a PEREYRA. Has been having a lot of bloating in the stomach. Had to go to the ED due to nausea and vomiting - K was low. DC home on PO antibiotics. CT scan showed: 1. Minimal, vague fat stranding adjacent to the cecum where there is mild wall thickening, new when compared to the prior examination. Slightly more prominent adjacent subcentimeter mesenteric lymph nodes. Findings could represent mild colitis in the proper clinical setting. No evidence of perforation or abscess formation. Unremarkable adjacent appendix. ? 2. Hepatic steatosis. No new hepatic parenchymal lesion or biliary ductal dilatation. ? 3. Redemonstration of a fibroid uterus. Continunes to have intermittent rectal bleeding? comes and ago. Blood is red - initially pure blood and then with the stool. Usually has bleeding once a month and lasts for a day Denies rectal or anal pain. Has 4-5 BMs a day usually soft stools, rarely has constipation. PAST LABS: ?Unable to have labs done since she had a Family? Tragedy. ?Has been taking Omeprazole every morning with partial? improvement in abdominal pain. ?She is worried she may have an? ulcer ?Noted rectal bleeding 1.5 months ago -? stopped after 2 days. ?Complains of sharp upper abdominal pain for the? past few yrs. ?Pain is intermittent and is precipitated by? food. ?Pain is accompanied by nausea and takes Zantac twice a day and? pain resolves. ?Also has a lot of heartburn. ?Takes Zantac? before she eats. ?Takes Peptobismol prn for abdominal? pain. ?Also notes abdominal bloating ?Tried Prilosec and it? did not work for her ?Denies dysphagia, vomiting, change in? appetite. ?Has constipation (twice a month) alternating with diarrhea? (a few times a month). ?Patient denies black stools. ?Her? weight fluctuates. ?When she has rectal bleeding which is mixed and? separate from the stools. ?Pt is asthmatic, sinus problems and? allergies. ?She believes she may have sleep apnea She denies? problems with anesthesia in the past other than she was very sleepy? afterwards. ?For patient she was hospitalized at [facility] for a day a year? ago for rectal bleeding. ?Did not have Endoscopic? evaluation. ?She was unable to stay since she has a disabled son at? home. ?FAMILY HISTORY:?Dad had 13 surgeries on his stomach and? eventually of Gastric cancer at age 39 yrs ?Denies known of colon? cancer. ?Aunt had liver cancer ENDOSCOPIC STUDIES:? 01/2020 EGD AND COLONOSCOPY SHOWED: Endoscopy Findings: STOMACH: Gastritis DUODENUM: Normal - biopsied to check for celiac sprue Colonoscopy Findings: One diminutive polyps removed Moderate diverticulosis seen in the sigmoid colon Moderate hemorrhoids on retroflexed exam. Plan: Await pathology results Continue present medications. Patient has an appointment on 02/13/20 in the GI Clinic with Batsheva Rees M.D.- Repeat Colonoscopy interval based on path results - in 3-5 years if polyps are adenomatous and 10 years if polyps are hyperplastic. BIOPSIES SHOWED: A.? Small bowel, biopsies:? Small bowel mucosa within normal limits; no villous abnormality identified; no increase in intraepithelial lymphocytes. B.? Stomach, antrum, biopsies:? Gastric mucosa with moderate active gastritis; positive for Helicobacter pylori organisms consistent with H. pylori gastritis; negative for intestinal metaplasia/dysplasia. C.? Stomach, body, biopsies:? Gastric mucosa with moderate active gastritis; positive for Helicobacter pylori organisms consistent with H. pylori gastritis; negative for intestinal metaplasia/dysplasia. D.? Colon, random, biopsies:? Colonic mucosa within normal limits; no evidence of microscopic colitis. E.? Rectum, polyp, polypectomy:? Fragments of hyperplastic polyp. [facility] Medical History (Updated 04/03/24 @ 11:25 by Batsheva Rees MD) Bleeding hemorrhoids Chronic back pain Sleep apnea Depression GERD (gastroesophageal reflux disease) Anxiety Hypertension Asthma Tachycardia Surgical History Tubal ligation status H/O hand surgery Hx of foot surgery History of esophagogastroduodenoscopy (EGD) H/O colonoscopy Family History Father Stomach cancer Social History Household Members: Family Alcohol intake: never Patient Tobacco Use Status: Current everyday Tobacco user Tobacco use type: Cigarette Cigarettes Per Day: 10 Years Smoked: 40 Review of Systems Const Denies fever(s), Reports headache(s) and Reports weight loss (of 5 lbs) Eyes Denies eye discharge and Denies irritation ENT Reports Normal hearing present, Denies dysphagia, Denies dizziness and Reports headache(s) Card Denies chest pain, Reports irregular heart rhythm (palpaitations), Denies leg edema, Reports dyspnea and Denies dyspnea on exertion Resp Denies cough, Reports dyspnea, Denies dyspnea on exertion and Reports wheezing (due to asthma) GI Reports abdominal pain, Reports bloating, Reports hematochezia (due to hemorrhoids), Denies change in bowel habits, Reports constipation, Denies dysphagia, Reports heartburn, Reports diarrhea, Reports nausea and Reports vomiting Denies difficulty voiding, Reports nocturia (frequent urination), Denies dysuria and Reports other (LMP 01/31/2024) Musc Denies back pain and Denies arthralgias Skin/Breast Denies pruritus, Denies rash and Denies jaundice Neuro Reports Normal hearing present, Denies Abnormal speech present, Denies dizziness, Reports headache(s) and Denies seizure-like activity Psych Reports anxiety, Reports depression and Denies panic attacks Endo Denies cold intolerance, Denies flushing and Denies heat intolerance Jean/Lymph Denies easy bleeding and Denies easy bruising Aller/Immun Reports wheezing (due to asthma) Physical Exam Vital Signs: Last Vital Signs Pulse 75 04/03/24 10:54 BP 130/79 04/03/24 10:54 BMI result Body Mass Index 26.3 Const General: comfortable and no acute distress Orientation/consciousness: patient oriented x3 Neck Neck: Yes no lymphadenopathy Resp Auscultation: clear to auscultation bilaterally Cardio Rhythm: regular rhythm GI Other: Rectal exam shows external hemorrhoids more than the left Palpation (GI): Soft to palpation, nontender and no guarding Neuro General: patient oriented x3 Cranial nerves: Yes Normal hearing present Speech: No Abnormal speech present Assessment & Plan Assessment & Plan (1) GERD (gastroesophageal reflux disease): Code(s): K21.9 - Gastro-esophageal reflux disease without esophagitis Category: Medical (2) Epigastric pain: Code(s): R10.13 - Epigastric pain Category: Medical (3) Abdominal bloating: Code(s): R14.0 - Abdominal distension (gaseous) Category: Medical (4) Nausea: Code(s): R11.0 - Nausea Category: Medical (5) Rectal bleeding: Code(s): K62.5 - Hemorrhage of anus and rectum Category: Medical (6) Abdominal bloating: Code(s): R14.0 - Abdominal distension (gaseous) Category: Medical (7) Chronic diarrhea: Code(s): K52.9 - Noninfective gastroenteritis and colitis, unspecified Category: Medical (8) Bleeding hemorrhoids: Code(s): K64.9 - Unspecified hemorrhoids Category: Medical (9) Colon cancer screening: Comment: 08/2022 A 10 mm tubular adenoma was removed from the AC - FU colon advised in 3 years (08/2025) Code(s): Z12.11 - Encounter for screening for malignant neoplasm of colon Category: Medical (10) Elevated LFTs: Code(s): R79.89 - Other specified abnormal findings of blood chemistry Category: Medical Plan 48 YF with heartburn, upper abdominal pain with bloating, nausea, diarrhea? alternating with constipation. Her symptoms are suggestive of GERD and IBS? (mixed). Patient also gives a history of intermittent episodes of self-limited rectal bleeding. Patient was advised to continue famotidine twice daily in? place of Zantac for heartburn and epigastric pain. She was advised to take a? fiber supplement to help regulate her bowel movement. 01/2020 Pt had an EGD and colonoscopy - findings as noted above. Repeat EGD in 01/2023 due to positive FH of gastric cancer in her Dad at age 39 yrs. Patient was advised to check labs and H Pylori breath test and start taking a probiotic for bloating. (She was prescribed Culturelle) 08/2022 EGD and a Colonocopy were performed and findings as noted 04/03/24 nausea and chronic diarrhea Check stool studies and labs to rule out IBD/pancreatic insufficiency FU in 3-4 months Orders: Orders Transglutaminase Ab IgG Today K52.9 - Noninfective gastroenteritis and colitis, unspecified Transglutaminase IgA Today K52.9 - Noninfective gastroenteritis and colitis, unspecified Hepatitis A IgG Today R79.89 - Other specified abnormal findings of blood chemistry Calprotectin, Fecal Today K52.9 - Noninfective gastroenteritis and colitis, unspecified Pancreatic Elastase-1 Today K52.9 - Noninfective gastroenteritis and colitis, unspecified [facility] SGI Today K52.9 - Noninfective gastroenteritis and colitis, unspecified Hepatitis B Surface Antibody Today R79.89 - Other specified abnormal findings of blood chemistry Hepatitis B Surface Antigen Today R79.89 - Other specified abnormal findings of blood chemistry Hepatitis B Core Antibody Today R79.89 - Other specified abnormal findings of blood chemistry Hepatitis C Antibody Today R79.89 - Other specified abnormal findings of blood chemistry Coding Level of Care Code Est Pt Level 4 (93113) Diagnoses GERD (gastroesophageal reflux disease) K21.9 Epigastric pain R10.13 Abdominal bloating R14.0 Nausea R11.0 Rectal bleeding K62.5 Chronic diarrhea K52.9 Bleeding hemorrhoids K64.9 Colon cancer screening Z12.11 Elevated LFTs R79.89 Time Spent (min) 25
[2024-04-03 10:54] VITALS: BP 130/79; PULSE 75; BMI 26.3
== END 2024-04-03 11:22 | disposition home or self-care (01) ==
PROVIDERS: PCP Internal Medicine; Visit Provider Internal Medicine Gastroenterology
DX: K21.9 Gastro-esophageal reflux disease without esophagitis (principal); R10.13 Epigastric pain; R14.0 Abdominal distension (gaseous); R11.0 Nausea; K62.5 Hemorrhage of anus and rectum; K52.9 Noninfective gastroenteritis and colitis, unspecified; K64.9 Unspecified hemorrhoids; Z12.11 Encounter for screening for malignant neoplasm of colon; R79.89 Other specified abnormal findings of blood chemistry
CPT/HCPCS: 99214

== ENCOUNTER 2024-06-09 15:12 | Outpatient (AMB) | payer OTHER, SELFPAY ==
[2024-06-09 15:21] VITALS: BP 118/70; PULSE 78; O2SAT 97
--- NOTE | 2024-06-09 15:21 | AM.OFFWIN_ITS ---
Intake Vital Signs 06/09/24 15:21 Weight 185 lb BP 118/70 Blood Pressure Location Rt brachial Position Sitting Pulse 78 Pulse Source Pulse Oximeter Pulse Oximetry (%) 97 Oxygen Delivery Method Room Air Intake Visit Reasons: EP Rt hip pain Intake Note: Patient here for right hip pain that started about 1 week ago now. Patient Tobacco Use Status: Current everyday Tobacco user Allergies famotidine [FAMOTIDINE] Allergy (Mild, Verified 06/09/24 15:26) HEADACHES ENVIRONMENTAL Allergy (Intermediate, Uncoded 06/09/24 15:26) NASAL CONGESTION Do you need a note to return to daycare/school/sports/work: No HPI HPI Comments History of Present Illness Details History of Present Illness The patient is a 49-year-old female presenting with hip pain. The pain is located on the right lateral aspect of the hip, worse when pushing on it. The patient reports significant discomfort especially upon rotation and pressure on the specific area. She has not experienced any trauma or overuse injury but mentions the inability to ascend or descend stairs normally, resorting to sideways movement to avoid pain. She has applied topical ointments, including a Mongolian cream for pain relief, and taken oral medications like Voltaren and Aleve, without relief of her pain. The patient experiences exacerbation of pain upon pressure. Further history reveals a diagnosis of peptic ulcer disease, thus complicating NSAID use. She has a background of asthma and is somewhat familiar with the use of prednisone for symptom management, having used it for her respiratory condition in the past. No history of GI bleed or specific ulcer complications. Physical Exam General: Cooperative, healthy appearing, comfortable, no acute distress and well developed Orientation: Patient oriented x3 Limitations: Limited motion due to hip pain Head: Normal to inspection Ears: Hearing grossly normal bilaterally Nose: Normal Nxternal nose present Face and sinus: ormal facial exam Eyes: Appearance normal, both eyes and all related structures Neck: Normal visual inspection and Yes full ROM Respiratory: Normal respiratory effort and able to speak in complete sentences. Skin: No rashes or lesions noted Neuro: Patient oriented x3 Extremities: TTP lateral right hip PFSH Medical History (Updated 06/09/24 @ 15:45 by Clara Rolle PA-C) Bleeding hemorrhoids Chronic back pain Sleep apnea Depression GERD (gastroesophageal reflux disease) Anxiety Hypertension Asthma Tachycardia Surgical History Tubal ligation status H/O hand surgery Hx of foot surgery History of esophagogastroduodenoscopy (EGD) H/O colonoscopy Family History Father Stomach cancer Social History Household Members: Family Alcohol intake: never Patient Tobacco Use Status: Current everyday Tobacco user Tobacco use type: Cigarette Cigarettes Per Day: 10 Years Smoked: 40 Review of Systems Const All systems reviewed & are unremarkable except as noted in HPI and below Physical Exam Vital Signs: Last Vital Signs Pulse 78 06/09/24 15:21 BP 118/70 06/09/24 15:21 Pulse Ox 97 06/09/24 15:21 Oxygen Delivery Method Room Air 06/09/24 15:21 Assessment & Plan Assessment & Plan (1) Bursitis of hip, right: Code(s): M70.71 - Other bursitis of hip, right hip Qualifiers: Hip bursitis location: trochanteric bursitis Qualified Code(s): M70.61 - Trochanteric bursitis, right hip Plan: Plan - Prescribe a prednisone burst to help with inflammation and pain management for hip bursitis, advising to start this regimen in the morning to avoid insomnia. - Emphasize the use of ice application on the affected area to further reduce inflammation. - Advise against the simultaneous use of NSAIDs and corticosteroids due to the risk of exacerbating her peptic ulcer disease. - Instruct the patient to continue NSAID use tonight if needed but transition to prednisone the following day with a cessation of NSAID use. - Medication coordination with pharmacy for prednisone prescription to be picked up from [facility] on [address]. - Advise that if symptoms do not improve following the course of treatment, follow-up with her primary care physician is necessary for further evaluation and management. Patient was informed and verbally consented to the use of an ambient scribe for clinic note documentation during this visit. Medications: New prednisone 20 mg PO QAM 5 tabs 0RF Coding Level of Care Code New Pt Level 3 (61571) Diagnoses Trochanteric bursitis of right hip M70.61 Hip bursitis location: trochanteric bursitis
== END 2024-06-09 15:50 | disposition home or self-care (01) ==
PROVIDERS: PCP Internal Medicine; Visit Provider Physician Assistant
DX: M70.61 Trochanteric bursitis, right hip (principal)

== ENCOUNTER → 2024-06-09 15:12 | Outpatient (BNVA) | payer OTHER, SELFPAY | PROVIDERS: PCP Internal Medicine; Visit Provider Physician Assistant | DX: M70.61 Trochanteric bursitis, right hip (principal) | CPT/HCPCS: 99202 ==

== ENCOUNTER 2024-07-16 10:22 | Outpatient (REF) | payer OTHER, SELFPAY ==
--- OUTSIDE RECORDS SUMMARY | 2024-07-17 13:51 | XMS_ITS | Data Portability ---
Author Organization [employer] [place] [employer] Address [address] [place] [id number] Care Team Providers Care Keyboard Operator Name Role Phone [facility] Referring Provider [facility] Referring Provider Assessment Encounter Date Assessment Date Assessment LastModified by Organization Details LastModified Time 11/14/2022 11/14/2022 As noted, we were called to see this patient regarding concerns of sinus congestion. Evaluation in the field was performed by my textile colorist formulator colleague, as noted above, I provided real-time direction and supervision for this visit. 47 yo F recently treated for bacterial sinusitis for 10d with augmentin (and prior bacterial sinusitis few months ago on reportedly extended antibiotics (pt unable to say which abx or for how long). Given pt is afebrile with otherwise nml VS with hx recurrent sinus infection and recent treatment, will defer further antibiotics and recommend f/up within 1 week with PCP and likely referral to ENT. Offered symptom management with flonase or nasal saline and tylenol/motrin, pt declines. Primary care, consider ENT referral. Disposition: We discussed the diagnostic uncertainty of home visits and the risk associated with this. In this case, the patient and I felt this to be an acceptable and reasonable amount of risk given the benefit of avoiding an ED visit. We discussed the need to seek care urgently/emerge ntly in the setting of any new or worsening serious symptoms, particularly fever, unresolving headaches despite meds, vision changes, altered mental status. [email or web address] Not available 11/14/2022 15:14:51 Plan of Treatment Reminders Order Date Submit Date Provider Last Modified By Organization Details Last Modified Time Details Appointments None recorded. Lab None recorded. Referral None recorded. Procedures None recorded. Surgeries None recorded. Imaging None recorded. Medication Orders Paxlovid 300 mg (150 mg x 2)-100 mg tablets in a dose pack 2022 023 [facility] am98 [facility]armacy #[id number], [address] [place], [address], 3 13:07:58 Patient TargetsNo targets recorded. Patient InstructionsNo instructions recorded. Reason for Referral None Reported. Medical Equipment None Reported. Medications Name Sig Start Date Stop Date Status Note LastModified by Organization Details LastModified Time silver sulfadiazine 1 % topical cream APPLY TOPICALLY IN THE MORNING FOR 10 DAYS. NEEDED active Not Available Not Available No t Available paroxetine 10 mg tablet TAKE 1 TABLET BY MOUTH EVERY DAY active Not Available Not Available No t Available trazodone 50 mg tablet TAKE 1 TABLET BY MOUTH EVERYDAY AT BEDTIME active Not Available Not Available No t Available ibuprofen 800 mg tablet TAKE 1 TABLET BY MOUTH THREE TIMES A DAY WITH FOOD NEEDED FOR PAIN active Not Available Not Available No t Available hydrochlorot hiazide 50 mg tablet TAKE 1 TABLET BY MOUTH EVERY DAY IN THE MORNING active Not Available Not Available No t Available ondansetron HCl 4 mg tablet TAKE 2 TABLETS BY MOUTH TWICE A DAY active Not Available Not Available No t Available prednisone 20 mg tablet TAKE 2 TABLETS BY MOUTH EVERY DAY FOR 5 DAYS active Not Available Not Available No t Available triamcinolon e acetonide 0.1 % topical cream APPLY TOPICALLY IF NEEDED IN THE MORNING AND AT BEDTIME (PAIN AND SWELLING). active Not Available Not Available N ot Available hydrocortiso ne 2.5 % topical cream with perineal applicator APPLY A THIN LAYER TO AFFECTED AREA(S) 2 TO 4 TIMES DAILY active Not Available Not Available No t Available famotidine 20 mg tablet TAKE 1 TABLET BY MOUTH TWICE A DAY active Not Available Not Available No t Available oseltamivir 75 mg capsule TAKE 1 CAPSULE BY MOUTH EVERY 12 HOURS FOR 5 DAYS active Not Available Not Available N ot Available lisinopril 10 mg tablet TAKE 1 TABLET BY MOUTH EVERY DAY IN THE MORNING active Not Available Not Available No t Available omeprazole 20 mg capsule,lori yed release TAKE 1 CAPSULE BY MOUTH DAILY FOR 90 DAYS active Not Available Not Available Not Available diltiazem CD 120 mg capsule,exte nded release 24 hr TAKE 1 CAPSULE BY MOUTH EVERY DAY FOR 90 DAYS active Not Available Not Available No t Available montelukast 10 mg tablet TAKE 1 TABLET BY MOUTH EVERY DAY IN THE EVENING active Not Available Not Available No t Available hydroxyzine HCl 25 mg tablet TAKE 1 TABLET BY MOUTH TWICE A DAY NEEDED active Not Available Not Available No t Available bisacodyl 5 mg tablet,delay ed release TAKE 2 TABLETS AT 12 PM DAILY STARTING 2 DAYS BEFORE COLONOSCOPY APPOINTMENT active Not Available Not Available Not Available lisinopril 5 mg tablet TAKE 1 TABLET BY MOUTH EVERY DAY IN THE MORNING active Not Available Not Available No t Available metoprolol succinate ER 25 mg tablet,exten ded release 24 hr TAKE 1/2 TABLET BY MOUTH EVERY DAY 90 ORALLY ONCE A DAY 30 DAYS active Not Available Not Available No t Available lorazepam 1 mg tablet TAKE 1/2 TO 1 TABLET BY MOUTH THREE TIMES DAILY NEEDED active Not Available Not Available No t Available ibuprofen 600 mg tablet TAKE 1 TABLET BY MOUTH EVERY 8 HOURS NEEDED FOR MILD/MODERA TE PAIN FOR 10 DAYS active Not Available Not Available No t Available albuterol sulfate HFA 90 mcg/actuatio n aerosol inhaler INHALE 2 PUFFS BY MOUTH EVERY 4 TO 6 HOURS NEEDED active Not Available Not Available No t Available ondansetron 4 mg disintegrati ng tablet TAKE 1 TABLET BY MOUTH EVERY 8 HOURS NEEDED FOR NAUSEA OR FOR VOMITING FOR UP TO 7 DAYS active Not Available Not Available No t Available fluticasone propionate 50 mcg/actuatio n nasal spray,suspen leo SPRAY 2 SPRAYS INTO EACH NOSTRIL EVERY DAY NEEDED active Not Available Not Available No t Available loratadine 10 mg tablet TAKE 1 TABLET BY MOUTH EVERY DAY NEEDED FOR ALLERGIES active Not Available Not Available No t Available naproxen 500 mg tablet TAKE 1 TABLET BY MOUTH EVERY MORNING AND 1 TABLET BY MOUTH AT BEDTIME NEEDED FOR MILD PAIN active Not Available Not Available No t Available amoxicillin 875 mg-potassium clavulanate 125 mg tablet TAKE 1 TABLET BY MOUTH TWICE A DAY FOR 10 DAYS active Not Available Not Available No t Available cholecalcife rol (vitamin D3) 25 mcg (1,000 unit) capsule TAKE 1 CAPSULE BY MOUTH EVERY DAY active Not Available Not Available No t Available Flovent HFA 220 mcg/actuatio n aerosol inhaler INHALE 1 PUFF BY MOUTH TWICE A DAY active Not Available Not Available No t Available Anti-Gas Ultra Strength 180 mg capsule TAKE 1 CAPSULE BY MOUTH EVERY DAY WITH MEALS active Not Available Not Available No t Available cholecalcife rol (vitamin D3) 25 mcg (1,000 unit) tablet TAKE 1 TABLET BY MOUTH EVERY DAY active Not Available Not Available No t Available Align (B.infantis) 4 mg capsule TAKE 1 CAPSULE BY MOUTH EVERY DAY active Not Available Not Available No t Available Purelax 17 gram/dose oral powder PLEASE SEE ATTACHED FOR DETAILED DIRECTIONS active Not Available Not Available N ot Available Paxlovid 300 mg (150 mg x 2)-100 mg tablets in a dose pack TAKE 3 TABLETS BY MOUTH TWICE A DAY FOR 5 DAYS active Not Available Not Available No t Available Vitals Date Recorded Oxygen saturation Oxygen saturation in Arterial blood by Pulse oximetry Respiratory rate Body weight Body temperature Heart rate Body height Systolic blood pressure Diastolic blood pressure Provider Name and Address Organization Details Last Updated DateTime 3 97 % 97 % 18 /min 43055.6 8 g 98.4 [degF] 83 /min 157.48 cm 134 mm[Hg] 82 mm[Hg] Not Available [employer] 3 13:02:00 Date Recorded Body temperature Body weight Oxygen saturation Oxygen saturation in Arterial blood by Pulse oximetry Respiratory rate Heart rate Systolic blood pressure Diastolic blood pressure Provider Name and Address Organization Details Last Updated DateTime 3 97.1 [degF] 34647.2 4 g 97 % 97 % 16 /min 76 /min 163 mm[Hg] 96 mm[Hg] Not Available [facility] 3 14:04:45 Date Recorded Body weight Body height Body temperature Oxygen saturation Oxygen saturation in Arterial blood by Pulse oximetry Heart rate Respiratory rate Systolic blood pressure Diastolic blood pressure Provider Name and Address Organization Details Last Updated DateTime 3 48929.6 4 g 157.48 cm 97.8 [degF] 95 % 95 % 61 /min 18 /min 124 mm[Hg] 80 mm[Hg] Not Available [facility] 3 11:16:46 Social History None recorded. Functional Status None recorded. Mental Status None recorded. Family History Nothing Reported. Medical History No medical history recorded. Gynecological HistoryNo gynecological history recorded. Obstetrics History GPAL:G 0 P 0 0 0 0 Past Encounters Encounter ID Performer Location Encounter Start Date Encounter Closed Date Diagnosis/Indication Diagnosis SNOMED-CT Code Diagnosis ICD10 Code Diagnosis Note [id number] Sneha Cintron MD [facility] [address] [place] [phone] 11/09/2022 14:04:34 11/10/2022 14:20:47 Acute bacterial sinusitis [id number] J01.90 47 year old female, being evaluated for bacterial sinusitis. Patient reports over a month of sinus congestion and facial pain, started augmentin 4 days ago without relief. Has been compliant with nasal sprays and other supportive measures recommende d by her outpatient providers. Last time took antibiotic s was a long time ago . Exam notable for mild hypertensi on with otherwise normal vital signs. Presentati on consistent with bacterial sinusitis, unresolved despite multiple treatment modalities . Given patient only 4 days into her 10 day course of augmentin, recommende d competing at least 7 days before reevaluati on for treatment failure and potentiall y changing to an alternativ e regimen. [id number] NEELAM ALVARADO MD [facility] [address] [place] [phone] 11/14/2022 11:16:43 11/15/2022 09:34:22 Congestion of nasal sinus [id number] R09.81 [id number] Bam Luo MD [facility] [address] [place] [id number] 05/06/2023 13:01:58 05/06/2023 16:22:04 COVID-19 [id number] U07.1 47yo woman presents with URI symptoms and had already tested positive for COVID by home test. She was well appearing and not short of breath. She had some sinus discomfort which is most consistent with viral infection rather than bacterial process. She was interested in paxlovid and has no absolute contraindi cations, so I have prescribed to local pharmacy. Paxlovid may increase blood levels of diltiazem, but this is expected to be safe given robust blood pressure and heart rate. Similarly, current dose of paroxetine is very low and so some increase in levels expected to be safe. Acute COVID-19 [id number] U07.1 We discussed the benefit of Paxlovid to reduce the risk of hospitaliz ation and , and the potential downsides/ side effects, including dysgeusia, headache, COVID rebound, and the possibilit y of medication interactio ns despite my efforts to review medication s and youth counselor on discontinu ation. We discussed alternativ es, including non-specif ic supportive care and referral for infusion. We felt this plan to be preferable . Health Concerns Section Related Observation LastModified by Organization Detai ls LastModified Time None Recorded Concern Status LastModified by Organization Details LastModified Time None Recorded Advance Directives Directive None Recorded Payers Encounter Date Sequence Insurance Name Policy Number Policy Navarro Covered Member ID Navarro Member ID Guarantor Name 11/09/2022 1 [facility] - DOS ON OR AFTER 2022 - DUAL ELIGIBLE - ALF OPTIONS AND ONE CARE (MEDICARE REPLACEMENT/ADV ANTAGE - HMO) Rohini Conner [id number] Rohini Conner 11/14/2022 1 [facility] - DOS ON OR AFTER 2022 - DUAL ELIGIBLE - ALF OPTIONS AND ONE CARE (MEDICARE REPLACEMENT/ADV ANTAGE - HMO) Rohini Conner [id number] Rohini Conner 05/06/2023 1 [facility] - DOS ON OR AFTER 2022 - DUAL ELIGIBLE - ALF OPTIONS AND ONE CARE (MEDICARE REPLACEMENT/ADV ANTAGE - HMO) Rohini Conner [id number] Rohini Conner Notes Date Note Type Note Provider Name and Address Organization Details Recorded Time 11/09/2022 text/html HPI: Patient with history of SVT. Seen by PCP 11/03/22 for sinus infection. has been on Augmentin with no improvement.Sinus congestion yellow mucous. Ear pain resolved. Complaints of dizziness. Was Hypertensive in office 142/91. .................. .................. .................. .................. .................. .................. .................. ............... CRC Nursing Assessment: Comments: CRC RN did not require any additional information to process this visit. Sneha Cintron MD [address] [facility],[address], [place], [phone], [employer] 11/09/2022 14:09:36 11/14/2022 text/html CRC Nursing Assessment: Reason For Request: Follow up visit>Sinus infection, which has not gotten better. Chief Complaints: URI PMH: COPD/Asthma, Hypertension, Heart Disease Allergies: No Known Comments: [facility] Member was on antibiotic amoxicillin and completed the course. Member continues to be congested, mild cough from being dry. Member has chills no fever but has pain and sinus pressure . Member has sob when sleeping and has to sleep upright Verified identity by .................. .................. .................. .................. .................. .................. .................. ............... [employer] Driver Note From Racheal Singleton: Sent to a call for a pt requesting follow up due to sinus infection. SC8 arrives on scene, pt is alert and oriented, airway is patent. [facility] amox[facility] x 7 days for sinus infection and finished antibiotics yesterday. Pt complains of headache, sinus pressure, yellow nasal discharge, sneezing, intermittent dry cough, intermittent nausea, and epigastric pain (from ulcer currently being treated). Pt denies dizziness, cp, sob, vomiting, diarrhea, fever, or loc. Pt states her headache and sinus pressure has worsened despite being on antibiotics. Pt was prescribed Flonase, but stopped using as she found it ineffective and switched to Phenylephrine, and saline spray(her son's) a few times. Pt has taken Ibuprofen for pain. BP:124/80, P:61, RR:18, SpO2:95% RA, T:97.8; Head: bilateral sinus tenderness; Lung sounds: clear bilaterally; Abdomen: soft, non-tender, no distention; Back: unremarkable; Extremities: unremarkable; Skin: pink, warm, dry; [facility] consulted and states pt was prescribed actually prescribed Augmentin x 10 days. Pt expresses Zertec D seems to be ineffective. [facility] suggests changing to Shi and offers to send script for Shi and Saline nasal spray. Pt declines stating she's tried Shi and has Saline nasal spray. Pt advised to follow up with PCP for further evaluation. [facility] sends follow up request to pt's care team. Red flags discussed. Pt has no further questions. .................. .................. .................. .................. .................. .................. .................. ............... Disposition: Fulfilled NEELAM ALVARADO MD [address] [place] [address],[address], [place], [phone], [employer] 11/14/2022 15:15:16 05/06/2023 text/html HPI: I tested positive for covid, my head really hurts u have a terrible sinus I'm coughing body aches and weak being taking motrin and flu tea I need more meds .................. .................. .................. .................. .................. .................. .................. ............... CRC Nursing Assessment: Reason For Request: +covid Chief Complaints: Asthma, Cough, Fever/Chills, Gastroenteritis, Headache, URI, Weakness/Lethargy PMH: COPD/Asthma, Hypertension, Heart Disease Allergies: No Known Comments: Member requested visit via the portal, member called back by this nurse. Member who tested positive for covid yesterday. Member experiencing productive cough, chest congestion, sinus pressure, headache, body aches, weakness, chills and diarrhea. Denies fever, chest pain or sob. Member would like to be evaluated for an abx. .................. .................. .................. .................. .................. .................. .................. ............... [employer] Driver Note From Yosi Araujo: [facility] visit for female patient with positive home COVID test and symptoms. Arrived to home. Pt presents conscious and alert. Pt reports onset of symptoms yesterday with positive home test yesterday. Pt reports headache, sinus pressure and congestion. Pt concerned about possible sinus infection. Vital signs taken and WNL. Pt afebrile. Pt has been taking theraflu and ibuprofen for symptoms with some improvement. Consulted with [facility] Dr. Luo who prescribed paxlovid for patients symptoms. Prescription sent to patients pharmacy. Patient education provided and encouraged to continue with home remedies as well. .................. .................. .................. .................. .................. .................. .................. ............... Disposition: Fulfilled Bam Luo MD [address] [facility],[address], [place], [phone], [employer] 05/06/2023 13:08:00 OBGyn Episode No OBEpisode recorded.
--- OUTSIDE RECORDS SUMMARY | 2024-07-17 13:51 | XMS_ITS | Encounter Summary ---
Author Organization [employer] Address [address] [facility] 7t [place] [address] Care Team Providers Care Goal Umpire Name Role Phone Jamila Robledo MD Primary Care Provide r Reason for Visit * Reason Comments Med Refill Encounter Details Date Type Department Care Team ([facility] st Contact Info) Description 08/08/2023 Refill [facility] [address] [place], [place] [phone] Jamila Robledo MD [address] [place] [address] Psychophysiological insomnia Social History Tobacco Use Types Packs/Day Years Used Date Smoking Tobacco: Every Day Cigarettes Passive Smoke Exposure: Current Smokeless Tobacco: Never Alcohol Use Standard Drinks/Week Comments Yes 0 (1 standard drink = 0.6 oz pur e alcohol) oca Depression Answer Date Recorded Patient Health Questionnaire-9 Score 9 11/03/2022 Housing Stability Answer Date Recorded What is your housing situation today? I have [place] 04/06/[address] you li ve. Do you have problems with any of the following? None of the above 04/06/2023 Food Insecurity Answer Date Recorded Within the past 12 months, y ou worried that your food would run out before you got money to buy more: Never True 04/06/2023 Within the past 12 months,th e food you bought just didn't last and you didn't have enough money to get more: Never True Transportation Answer Date Recorded In the past 12 months, has l ack of transportation kept you from medical appts, meetings, work or from getting things needed for daily living? No 04/06/2023 Utilities Answer Date Recorded In the past 12 months, has t he electric, gas, oil or water company threatened to shut off services in your home? No 04/06/2023 Depression Answer Date Recorded Patient Health Questionnaire-2 Score 4 11/03/2022 Comments Unknown Sex and Gender Information Value Date Recorded Sex Assigned at Female 04/17/2022 10:14 AM EDT Legal Sex Female 10:14 AM EDT Gender Identity Female 04/17/2022 10:14 AM EDT Sexual Orientation Straight 04/17/2022 10 :14 AM EDT documented as of this encounter Plan of Treatment Upcoming Encounters Date Type Department Care Team (Late st Contact Info) Description 09/15/2024 11:15 AM EDT Office Visit [facility] [address] [place] [phone] Jamila Robledo MD [address] [place] [phone] 09/16/2024 9:30 AM EDT Procedure Visit [facility] [address] [place] [address] [phone] Jamial Robledo MD [address] [place], [place] [phone] documented as of this encounter Visit Diagnoses Diagnosis Psychophysiological insomnia Persistent disorder of initiating or maintaining sleep documented in this encounter Additional Health Concerns Assessment Noted Time PHQ-9 Depression Total Score: 9 11/04/19 23 2:36 PM EDT documented as of this encounter Care Teams Goal Umpire Relationship Specialty Start Date End Date Jamila Robledo MD [address] [place] [address] [phone] PCP - General Family Medicine 05/02/19 documented as of this encounter
--- OUTSIDE RECORDS SUMMARY | 2024-07-17 13:51 | XMS_ITS | Encounter Summary ---
Author Organization [employer] Address [address] [facility] 7t [place] [address] Care Team Providers Care Spring Former Hand Name Role Phone Jamila Robledo MD Primary Care Provide r Reason for Visit * Reason Comments Med Change Request Encounter Details Date Type Department Care Team ([facility] Contact Info) Description 06/28/2023 Refill [facility] [address] [place], [place] [phone] Ruth Costello FNP [address] [place] [address] Upper back pain on left side Social History Tobacco Use Types Packs/Day Years [...] Description 09/15/2024 11:15 AM EDT Office Visit [facility] [address] [place] [phone] Jamila Robledo MD [address] [place] [address] [phone] 09/16/2024 9:30 AM EDT Procedure Visit [facility] [address] [place] [address] [phone] Jamila Robledo MD [address] [place] [address] [phone] documented as of this encounter Visit Diagnoses Diagnosis Upper back pain on left side documented in this encounter Additional Health Concerns Assessment Noted Time PHQ-9 Depression Total Score: 9 11/04/19 23 2:36 PM EDT documented as of this encounter Care Teams Spring Former Hand Relationship Specialty Start Date End Date Jamila Robledo MD [address] [place] [address] [phone] PCP - General Family Medicine 05/02/19 documented as of this encounter
--- OUTSIDE RECORDS SUMMARY | 2024-07-17 13:51 | XMS_ITS | Encounter Summary ---
Author Organization [employer] Address [address] [facility] 7t [place] [address] Care Team Providers Care Emergency Medical Service Coordinator Name Role Phone Jamila Robledo MD Primary Care Provide r Reason for Visit * Reason Comments Med Change Request Encounter Details Date Type Department Care Team ([facility] Contact Info) Description 07/17/2023 Refill [facility] [address] [place], [place] [phone] Ruth Costello FNP [address] [place] [phone] Social History Tobacco Use Types Packs/Day Years [...] Description 09/15/2024 11:15 AM EDT Office Visit [facility] [address] [place] [phone] Jamila Robledo MD [address] [place] [address] [phone] 09/16/2024 9:30 AM EDT Procedure Visit [facility] [address] [place] [phone] Jamila Robledo MD [address] [place] [address] [phone] documented as of this encounter Visit Diagnoses Not on filedocumented in this encounter Additional Health Concerns Assessment Noted Time PHQ-9 Depression Total Score: 9 11/04/19 23 2:36 PM EDT documented as of this encounter Care Teams Emergency Medical Service Coordinator Relationship Specialty Start Date End Date Jamila Robledo MD [address] [place] [address] [phone] PCP - General Family Medicine 05/02/19 documented as of this encounter
--- OUTSIDE RECORDS SUMMARY | 2024-07-17 13:52 | XMS_ITS | Encounter Summary ---
Author Organization [employer] Address [address] [place] [address] [place] [address] Care Team Providers Care Pharmacy Director Name Role Phone Jamila Robledo MD Primary Care Provide r Reason for Visit * Reason Comments Med Refill Encounter Details Date Type Department Care Team (Late Contact Info) Description 01/19/2023 Refill [facility] [address] [place] [phone] Liza Matos FNP [address] [place] [address] Dept [place] [address] Psychophysiological insomnia Social History Tobacco Use Types Packs/Day Years Used Date Smoking Tobacco: Every Day Cigarettes Smokeless Tobacco: Never Alcohol Use Standard Drinks/Week Comments Yes 0 (1 standard drink = 0.6 oz pur e alcohol) oca Depression Answer Date Recorded Patient Health Questionnaire-9 Score 9 11/03/2022 Depression Answer Date Recorded Patient Health Questionnaire-2 [...] Encounters Date Type Department Care Team (Late Contact Info) Description 09/15/2024 11:15 AM EDT Office Visit [facility] [address] [place] [address] [phone] Jamila Robledo MD [address] [place], [place] [phone] 09/16/2024 9:30 AM EDT Procedure Visit [facility] [address] [place], [place] [phone] Jamila Robledo MD [address] [place] [address] [phone] documented as of this encounter Visit Diagnoses Diagnosis Psychophysiological insomnia Persistent disorder of initiating or maintaining sleep documented in this encounter Additional Health Concerns Assessment Noted Time PHQ-9 Depression Total Score: 9 11/04/19 23 2:36 PM EDT documented as of this encounter Care Teams Pharmacy Director Relationship Specialty Start Date End Date Jamila Robledo MD [address] [place] [address] [phone] PCP - General Family Medicine 05/02/19 documented as of this encounter
--- OUTSIDE RECORDS SUMMARY | 2024-07-17 13:52 | XMS_ITS | Encounter Summary ---
Author Organization [employer] Address [address] [facility] 7t [place] [address] Care Team Providers Care Personal Attendant Name Role Phone Jamila Robledo MD Primary Care Provide r Reason for Visit * Reason Onset Date Comments Med Change Request 03/11/2024 Encounter Details Date Type Department Care Team ([facility] Contact Info) Description 03/11/2024 Telephone [facility] [address] [place] [address] Jamila Robledo MD [address] [place] [address] Med Change Request Social History Tobacco Use Types Packs/Day Years Used Date Smoking Tobacco: Every Day Cigarettes Started: 2023 Passive Smoke Exposure: Current Smokeless Tobacco: Never Alcohol Use Standard Drinks/Week Comments Yes 0 (1 standard drink = 0.6 oz pur e alcohol) oca Alcohol Answer Date Recorded Frequency of Alcohol Consumption Not on file 02/06/2024 Average Number of Drinks Not on file 024 Frequency of Binge Drinking Not on file 01/17 Score 0 02/06/2024 Depression Answer Date Recorded Patient Health Questionnaire-9 Score 0 02/06/2024 Patient Health Questionnaire-9 Score 0 02/06/2024 Last PHQ-9: Questionnaire Data Not on file 0 02/06/2024 Housing Stability Answer Date Recorded What is [...] from getting things needed for daily living? Yes, it has kept me from non-medical meetings, work, or getting things that I need 10/18/2023 Utilities Answer Date Recorded In the past 12 months, has t he [employer], gas, oil or water [employer] threatened to shut off services in your home? Yes 10/18/2023 Depression Answer Date Recorded Patient Health Questionnaire-2 Score 0 02/06/2024 Comments No Sex and Gender Information Value Date Recorded Sex Assigned at Female 04/17/2022 10:14 AM EDT Legal Sex Female 10:14 AM EDT Gender Identity Female 04/17/2022 10:14 AM EDT Sexual Orientation Straight 04/17/2022 10 :14 AM EDT documented as of this encounter Miscellaneous Notes * Telephone Encounter - Fredi Toscano - 03/11/2024 3:18 PM EDT Tc from patient requesting a alternative medication for metFORMIN (Glucophage) 500 MG tablet stateshaves abdominal pain after taking this medication documented in this encounter Plan of Treatment Upcoming Encounters Date Type Department Care Team (Late st Contact Info) Description 09/15/2024 11:15 AM EDT Office Visit [facility] [address] [place] [address] [phone] Jamila Robledo MD [address] [place] [address] [phone] 09/16/2024 9:30 AM EDT Procedure Visit [facility] [address] [place] [address] [phone] Jamila Robledo MD [address] [place] [address] [phone] documented as of this encounter Visit Diagnoses Not on filedocumented in this encounter Additional Health Concerns Assessment Noted Time PHQ-9 Depression Total Score: 0 02/06/20 24 2:56 PM EDT documented as of this encounter Care Teams Personal Attendant Relationship Specialty Start Date End Date Jamila Robledo MD [address] [place] [address] PCP - General Family Medicine 05/02/19 documented as of this encounter
--- OUTSIDE RECORDS SUMMARY | 2024-07-17 13:52 | XMS_ITS | Encounter Summary ---
Author Organization [employer] Address [address] [facility] 7t [place] [address] Care Team Providers Care Analyst Food And Beverage Name Role Phone Jamila Robledo MD Primary Care Provide r Reason for Visit * Reason Onset Date Comments Nurse Triage 02/27/2024 Encounter Details Date Type Department Care Team ([facility] Contact Info) Description 02/27/2024 Telephone [facility] [address] [place], [place] [phone] Jamila Robledo MD [address] [place] [address] Nurse Triage Social History Tobacco Use Types Packs/Day Years [...] the past 12 months, has t he [employer], gas, oil or water [employer] threatened to shut off services in your [...] encounter Miscellaneous Notes * Telephone Encounter - Celena Mackay RN - 02/27/2024 3:53 PM EDT Triage call Pt reports for week and half now index finger on left hand has a tingling sensation on the very top part of finger. Pt thinks possibly slept on it too long but, it hasn't gone away. Pt isable to use hand and finger. Pt would like provider to check this. Advised to come to [facility] open till 8pm today and th, fri, 830a-4p. Pt agrees with this disposition and will come to [facility] probably in the morning. Insurance is verified as active. Protocol Used: Finger Pain (Adult) Protocol-Based Disposition: See in Office or Video Visit within 3 Days Video visit not offered Positive Triage Question: * Patient wants to be seen * All higher-acuity triage questions were negative Care Advice Discussed: * Reasons To Call Back - Fever occurs - Redness or swelling appears - Pain lasts over 7 days - You become worse * Telephone Encounter - Kaushal Barba - 02/27/2024 3:30 PM EDT TC from pt reports numbness of tip of index finger. Unsure if related to DX of diabetes. PT was prescribed metformin . documented in this encounter Plan of Treatment Upcoming Encounters Date Type Department Care Team (Late st Contact Info) Description 09/15/2024 11:15 AM EDT Office Visit [facility] [address] [place] [address] [phone] Jamila Robledo MD [address] [place] [address] [phone] 09/16/2024 9:30 AM EDT Procedure Visit [facility] [address] [place] [address] [phone] Jamila Robledo MD [address] [place] [address] [phone] documented as of this encounter Visit Diagnoses Not on filedocumented in this encounter Additional Health Concerns Assessment Noted Time PHQ-9 Depression Total Score: 0 02/06/20 24 2:56 PM EDT documented as of this encounter Care Teams Analyst Food And Beverage Relationship Specialty Start Date End Date Jamila Robledo MD [address] [place] [address] [phone] PCP - General Family Medicine 05/02/19 documented as of this encounter
--- OUTSIDE RECORDS SUMMARY | 2024-07-17 13:52 | XMS_ITS | Encounter Summary ---
Author Organization [employer] Address [address] [facility] [address] 7t [place] [address] Care Team Providers Care Ham Sawyer Name Role Phone Jamila Robledo MD Primary Care Provide r Reason for Visit * Reason Comments Med Refill Encounter Details Date Type Department Care Team ([facility] st Contact Info) Description 07/10/2024 Refill [facility] [address] [place] [address] Jamila Robledo MD [address] [place] [address] Chronic pansinusitis; Mild persistent asthma without complication; Gastroesophageal reflux disease, unspecified whether esophagitis present; Psychophysiological insomnia Social History Tobacco Use Types Packs/Day Years Used Date Smoking Tobacco: Every Day Cigarettes 0.3 1.1 Started: 2023 Passive Smoke Exposure: Current Smokeless [...] Description 09/15/2024 11:15 AM EDT Office Visit [facility] [address] [place] [phone] Jamila Robledo MD [address] [place] [phone] 09/16/2024 9:30 AM EDT Procedure Visit [facility] [address] [place] [address] [phone] Jamila Robledo MD [address] [place] [address] [phone] documented as of this encounter Visit Diagnoses Diagnosis Chronic pansinusitis Other chronic sinusitis Mild persistent asthma without complication Gastroesophageal reflux disease, unspecified whether esophagitis present Psychophysiological insomnia Persistent disorder of initiating or maintaining sleep documented in this encounter Additional Health Concerns Assessment Noted Time PHQ-9 Depression Total Score: 0 02/06/20 24 2:56 PM EDT documented as of this encounter Care Teams Ham Sawyer Relationship Specialty Start Date End Date Jamila Robledo MD [address] [place] [phone] PCP - General Family Medicine 05/02/19 documented as of this encounter
--- OUTSIDE RECORDS SUMMARY | 2024-07-17 13:52 | XMS_ITS | Encounter Summary ---
Author Organization [employer] Address [address] [facility] 7t [place] [address] Care Team Providers Care Personal Computer Network Analyst Name Role Phone Jamila Robledo MD Primary Care Provide r Encounter Details Date Type Department Care Team (Latest Contact Info) Description 06/17/2024 Travel Social History Tobacco Use Types Packs/Day Years [...] Description 09/15/2024 11:15 AM EDT Office Visit [facility] [address] [place] [phone] Jamila Robledo MD [address] [place] [address] [phone] 09/16/2024 9:30 AM EDT Procedure Visit [facility] [address] [place] [phone] Jamila Robledo MD [address] [place] [address] [phone] documented as of this encounter Visit Diagnoses Not on filedocumented in this encounter Additional Health Concerns Assessment Noted Time PHQ-9 Depression Total Score: 0 02/06/20 24 2:56 PM EDT documented as of this encounter Care Teams Personal Computer Network Analyst Relationship Specialty Start Date End Date Jamila Robledo MD [address] [place] [address] [phone] PCP - General Family Medicine 05/02/19 documented as of this encounter
--- OUTSIDE RECORDS SUMMARY | 2024-07-17 13:52 | XMS_ITS | Encounter Summary ---
Author Organization [employer] Address [address] [place] [address] 7t [place] [address] Care Team Providers Care Dairy Truck Driver Name Role Phone Jamila Robledo MD Primary Care Provide r Reason for Visit * Reason Comments Med Refill Encounter Details Date Type Department Care Team ([facility] Contact Info) Description 11/28/2022 Refill [facility] [address] [place] [address] Jamila Robledo MD [address] [place] [address] Acute non-recurrent frontal sinusitis Social History Tobacco Use Types Packs/Day Years [...] Orientation Straight 04/17/2022 10 :14 AM EDT COVID-19 Exposure Response Date Recorded In the last 10 days, have yo u been in contact with someone who was confirmed or suspected to have Coronavirus/COVID-19? No / Unsure 11/03/2022 2:24 PM EDT documented as of this encounter Plan of Treatment Upcoming Encounters Date Type Department Care Team ([facility] Contact Info) Description 09/15/2024 11:15 AM EDT Office Visit [facility] [address] [place] [phone] Jamila Robledo MD [address] [place] [phone] 09/16/2024 9:30 AM EDT Procedure Visit [facility] [address] [place] [address] [phone] Jamila Robledo MD [address] [place] [phone] documented as of this encounter Visit Diagnoses Diagnosis Acute non-recurrent frontal sinusitis documented in this encounter Additional Health Concerns Assessment Noted Time PHQ-9 Depression Total Score: 9 11/04/19 23 2:36 PM EDT documented as of this encounter Care Teams Dairy Truck Driver Relationship Specialty Start Date End Date Jamila Robledo MD [address] [place] [phone] PCP - General Family Medicine 05/02/19 documented as of this encounter
--- OUTSIDE RECORDS SUMMARY | 2024-07-17 13:52 | XMS_ITS | Encounter Summary ---
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 Name Role Phone Jamila Robledo MD Primary Care Provide r Reason for Referral * Consultation (Urgent) - Authorized Specialty Diagnoses / Procedures Referred By Contac t Referred To Contact Orthopaedic Surgery Diagnoses Right hip pain Trochanteric bursitis of right hip Jamila Robledo MD [address] [place] [id number] Phone: tel: fax: [facility] [address] [place] [address] Phone: tel: Referral ID Status Reason Start Date Expiration Date Visits Requested Visits Authorized [id number] Authorized Specialty Services Required 06/17/2025 1 1 Encounter Details Date Type Department Care Team (Late st Contact Info) Description 06/17/2024 12:30 PM EST Telemedicine [facility] [address] [place] [phone] Jamila Robledo MD [address], [place] [phone] Obesity (BMI 30-39.9) (Primary Dx); Prediabetes; Right hip pain; Trochanteric bursitis of right hip Social History Tobacco Use Types Packs/Day Years [...] AM EDT documented as of this encounter Progress Notes * Jamila Beebe MD - 06/17/2024 12:30 PM EST SUBJECTIVE: Rohini Conner is a 49 y.o. year old female who presents for Follow up . Acute Concerns: Patient reports she did not tolerate weight loss medication, she reports after first injection she felt nausea, weakness, not herself Patient also reports she was having really bad hip pain, she went to urgent care was given medications but reports pain is persistent, she was not refer to orthopedics Social History Social History Narrative Not on file Patient Active Problem List Diagnosis Essential hypertension Supraventricular tachycardia (CMS/HCC) Snoring Cough Skin tag Concetta-menopause Pain in finger Obesity (BMI 30-39.9) Hemorrhoids Gastroesophageal reflux disease Excessive and frequent menstruation Decreased thyroid stimulating hormone level Cramp in limb Colitis Bacterial sinusitis Asthma Anxiety Allergic rhinitis Callus of foot Rash Acute non-recurrent frontal sinusitis Vascular insufficiency Chronic pansinusitis Epigastric pain Chronic maxillary sinusitis Obesity (BMI 35.0-39.9 without comorbidity) Hypokalemia Prediabetes Right hip pain Trochanteric bursitis of right hip Family History Problem Relation Name Age of Onset Diabetes Mother Hypertension Mother Review of Systems Constitutional: Negative. HENT: Negative. Respiratory: Negative. Cardiovascular: Negative. Gastrointestinal: Negative. Musculoskeletal: Positive for arthralgias. Follow Up: Follow up in about 3 months (around 09/15/2024) for chronic conditions . Current Outpatient Medications on File Prior to Visit Medication Sig Dispense Refill albuterol (2.5 MG/3ML) 0.083% nebulizer solution Take 3 mL (2.5 mg) by nebulization every 6 (six) hours if needed for wheezing. 75 mL 11 albuterol 108 (90 Base) MCG/ACT inhaler INHALE 2 PUFFS BY MOUTH EVERY 4 TO 6 HOURS NEEDED 18 g 1 Alcohol Swabs 70 % pads Use to test blood sugar 2 times daily 100 each 2 baclofen (Lioresal) 10 MG tablet TAKE 1 TABLET BY MOUTH THREE TIMES A DAY 90 tablet 0 Blood Glucose Monitoring Suppl (FreeStyle [place] Lite) w/Device kit Use to test blood sugar 2 times daily 1 kit 0 cetirizine (ZyrTEC) 10 MG tablet Take 1 tablet by mouth every day 90 tablet 0 cetirizine (ZyrTEC) 10 MG tablet Take 1 tablet (10 mg) by mouth Once per day. 30 tablet 11 cholecalciferol (Vitamin D3) 25 MCG (1000 UT) tablet [facility] Gas Relief Ultra Strength 180 MG capsule TAKE 1 CAPSULE BY MOUTH EVERY DAY WITH MEALS Diclofenac Sodium 1 % gel APPLY 2 GRAMS TOPICALLY IF NEEDED IN THE MORNING, AT NOON, AND AT BEDTIME(PAIN). 300 g 0 dicyclomine (Bentyl) 20 MG tablet Take 1 tablet by mouth every 12 (twelve) hours. dilTIAZem CD (Cardizem CD) 120 MG 24 hr capsule TAKE 1 CAPSULE BY MOUTH EVERY DAY FOR 90 DAYS famotidine (Pepcid) 20 MG tablet TAKE 1 TABLET BY MOUTH TWICE A DAY 180 tablet 3 fluticasone (Flonase) 50 MCG/ACT nasal spray SPRAY 2 SPRAYS INTO EACH NOSTRIL EVERY DAY NEEDED 48 mL 1 fluticasone furoate (Arnuity Ellipta) 200 MCG/ACT inhaler TAKE 1 PUFF BY MOUTH ONCE A DAY 30 each 3 FreeStyle lancets USE TO TEST BLOOD SUGAR 2 TIMES DAILY 100 each 11 FREESTYLE LITE test strip Use to test blood sugar 2 times daily 100 each 12 hydroCHLOROthiazide (HYDRODiuril) 25 MG tablet Take 1 tablet (25 mg) by mouth Once per day. 30 tablet 11 lisinopril 10 MG tablet TAKE 1 TABLET BY MOUTH EVERY DAY IN THE MORNING 90 tablet 1 LORazepam (Ativan) 1 MG tablet TAKE 1/2 TO 1 TABLET BY MOUTH 3 TIMES DAILY NEEDED. 15 tablet 0 metoprolol succinate XL (Toprol-XL) 25 MG 24 hr tablet TAKE 1/2 TABLET BY MOUTH EVERY DAY 90 ORALLYONCE A DAY 30 DAYS montelukast (Singulair) 10 MG tablet TAKE 1 TABLET BY MOUTH EVERY DAY IN THE EVENING 90 tablet 1 naproxen (Naprosyn) 500 MG tablet TAKE 1 TABLET BY MOUTH EVERY MORNING AND 1 TABLET BY MOUTH AT BEDTIME NEEDED FOR MILD PAIN 60 tablet 1 omeprazole (PriLOSEC) [address] capsule TAKE 1 CAPSULE (20 MG) BY MOUTH BEFORE BREAKFAST 90 capsule 1 PARoxetine (Paxil) 10 MG tablet TAKE 1 TABLET BY MOUTH EVERY DAY 90 tablet 2 potassium chloride CR (Klor-Con M20) 20 MEQ ER tablet Take 1 tablet (20 mEq) by mouth 3 times daily. Do not crush or chew. 9 tablet 0 sharps container 1 each if needed (For lancet disposal after checking blood sugar twice daily). 1 each 11 traZODone (Desyrel) 50 MG tablet TAKE 1 TABLET BY MOUTH EVERYDAY AT BEDTIME 90 tablet 1 triamcinolone (Kenalog) 0.1 % cream Apply topically if needed in the morning and at bedtime (pain and swelling). 30 g 2 [DISCONTINUED] metFORMIN (Glucophage) 500 MG tablet Take 1 tablet (500 mg) by mouth with breakfast and with evening meal. 60 tablet 11 [DISCONTINUED] Paxlovid, 300/100, 20 x 150 MG & 10 x 100MG tablet therapy pack TAKE 3 TABLETS BY MOUTH TWICE A DAY FOR 5 DAYS [DISCONTINUED] Semaglutide-Weight Management (Wegovy) 0.25 MG/0.5ML solution auto-injector Inject 0.5 mL (0.25 mg) under the skin 1 (one) time per week. 2 mL 0 No current facility-administered medications on file prior to visit. Problem List Items Addressed This Visit Obesity (BMI 30-39.9) - Primary Today extensive discussion was done about life style modifications I advise healthy diet (low calorie) and cardiovascular exercise Prediabetes Right hip pain Relevant Orders Referral to Orthopaedic Surgery Trochanteric bursitis of right hip Relevant Orders Referral to Orthopaedic Surgery documented in this encounter Miscellaneous Notes * Assessment & Plan Note - Jamila Beebe MD - 06/17/2024 2:20 PM EST Associated Problem(s): Obesity (BMI 30-39.9) Today extensive discussion was done about life style modifications I advise healthy diet (low calorie) and cardiovascular exercise documented in this encounter Plan of Treatment Upcoming Encounters Date Type Department Care Team (Late st Contact Info) Description 09/15/2024 11:15 AM EDT Office Visit [facility] [address] [place] [phone] Jamila Robledo MD [address], [place] [phone] 09/16/2024 9:30 AM EDT Procedure Visit [facility] [address] [place] [phone] Jamila Robledo MD [address], [place] [phone] Scheduled Referrals Name Type Priority Associated Diagnoses Order Schedule Referral to Orthopaedic Surgery Outpatient Referral Urgent Right hip pain Trochanteric bursitis of right hip Expected: 06/17/2024 (Approximate), Expires: 06/17/2025 documented as of this encounter Visit Diagnoses Diagnosis Obesity (BMI 30-39.9)- Primary Prediabetes Other abnormal glucose Right hip pain Pain in joint, pelvic region and thigh Trochanteric bursitis of right hip documented in this encounter Additional Health Concerns Assessment Noted Time PHQ-9 Depression Total Score: 0 02/06/20 24 2:56 PM EDT documented as of this encounter Care Teams Diesel Truck Driver Relationship Specialty Start Date End Date Jamila Robledo MD [address] [place] [phone] PCP - General Family Medicine 05/02/19 documented as of this encounter
--- OUTSIDE RECORDS SUMMARY | 2024-07-17 13:52 | XMS_ITS | Clinical Summary ---
Author Organization [employer] Address [address] [place] [address] [address] [place] [address] Care Team Providers Care Sidewalk Repairer Name Role Phone Jamila Robledo MD Primary Care Provide r Allergies No known active allergies Medications cetirizine (ZyrTEC) 10 MG tabletIndicatio ns:Mild persistent asthma without complication Take 1 tablet by mouth every day 90 tablet 022 Active cholecalciferol (Vitamin D3) 25 MCG (1000 UT) tablet 022 Active dicyclomine (Bentyl) 20 MG tablet Take 1 tablet by mouth every 12 (twelve) hours. 021 Active [facility] Gas Relief Ultra Strength 180 MG capsule TAKE 1 CAPSULE BY MOUTH EVERY DAY WITH MEALS 022 Active naproxen (Naprosyn) 500 MG tabletIndicatio ns:History of menorrhagia TAKE 1 TABLET BY MOUTH EVERY MORNING AND 1 TABLET BY MOUTH AT BEDTIME NEEDED FOR MILD PAIN 60 tablet 1 023 Active dilTIAZem CD (Cardizem CD) 120 MG 24 hr capsule TAKE 1 CAPSULE BY MOUTH EVERY DAY FOR 90 DAYS 023 Active metoprolol succinate XL (Toprol-XL) 25 MG 24 hr tablet TAKE 1/2 TABLET BY MOUTH EVERY DAY 90 ORALLY ONCE A DAY 30 DAYS 023 Active Diclofenac Sodium 1 % gelIndications: Upper back pain on left side APPLY 2 GRAMS TOPICALLY IF NEEDED IN THE MORNING, AT NOON, AND AT BEDTIME (PAIN). 300 g 024 Active albuterol (2.5 MG/3ML) 0.083% nebulizer solution Take 3 mL (2.5 mg) by nebulization every 6 (six) hours if needed for wheezing. 75 mL 11 024 2024 Active LORazepam (Ativan) 1 MG tabletIndicatio ns:Anxiety TAKE 1/2 TO 1 TABLET BY MOUTH 3 TIMES DAILY NEEDED. 15 tablet Active albuterol 108 (90 Base) MCG/ACT inhalerIndicati ons:Mild persistent asthma without complication INHALE 2 PUFFS BY MOUTH EVERY 4 TO 6 HOURS NEEDED 18 g 1 024 Active triamcinolone (Kenalog) 0.1 % creamIndication s:Rash Apply topically if needed in the morning and at bedtime (pain and swelling). 30 g 2 024 Active potassium chloride CR (Klor-Con M20) 20 MEQ ER tabletIndicatio ns:Hypokalemia Take 1 tablet (20 mEq) by mouth 3 times daily. Do not crush or chew. 9 tablet 024 2024 Active hydroCHLOROthia zide (HYDRODiuril) 25 MG tabletIndicatio ns:Hypokalemia Take 1 tablet (25 mg) by mouth Once per day. 30 tablet 11 024 2024 Active fluticasone (Flonase) 50 MCG/ACT nasal sprayIndication s:Acute non-recurrent frontal sinusitis SPRAY 2 SPRAYS INTO EACH NOSTRIL EVERY DAY NEEDED 48 mL 1 Active fluticasone furoate (Arnuity Ellipta) 200 MCG/ACT inhaler TAKE 1 PUFF BY MOUTH ONCE A DAY 30 each 3 Active FREESTYLE LITE test stripIndication s:Prediabetes Use to test blood sugar 2 times daily 100 each 12 024 2024 Active Blood Glucose Monitoring Suppl (FreeStyle Zachary Lite) w/Device kitIndications: Prediabetes Use to test blood sugar 2 times daily 1 kit Active Alcohol Swabs 70 % padsIndications :Prediabetes Use to test blood sugar 2 times daily 100 each 2 Active cetirizine (ZyrTEC) 10 MG tabletIndicatio ns:Seasonal allergic rhinitis, unspecified trigger Take 1 tablet (10 mg) by mouth Once per day. 30 tablet 11 024 2024 Active sharps container 1 each if needed (For lancet disposal after checking blood sugar twice daily). 1 each 024 Active famotidine (Pepcid) 20 MG tabletIndicatio ns:Epigastric pain TAKE 1 TABLET BY MOUTH TWICE A DAY 180 tablet 3 024 Active FreeStyle lancetsIndicati ons:Prediabetes USE TO TEST BLOOD SUGAR 2 TIMES DAILY 100 each 11 024 Active lisinopril 10 MG tabletIndicatio ns:Chronic pansinusitis TAKE 1 TABLET BY MOUTH EVERY DAY IN THE MORNING 90 tablet 1 025 Active montelukast (Singulair) 10 MG tabletIndicatio ns:Mild persistent asthma without complication TAKE 1 TABLET BY MOUTH EVERY DAY IN THE EVENING 90 tablet 1 025 Active omeprazole (PriLOSEC) [address] capsuleIndicati ons:Gastroesoph ageal reflux disease, unspecified whether esophagitis present TAKE 1 CAPSULE (20 MG) BY MOUTH BEFORE BREAKFAST 90 capsule 1 025 Active PARoxetine (Paxil) 10 MG tablet TAKE 1 TABLET BY MOUTH EVERY DAY 90 tablet 2 025 Active baclofen (Lioresal) 10 MG tablet TAKE 1 TABLET BY MOUTH THREE TIMES A DAY 90 tablet 025 Active traZODone (Desyrel) 50 MG tabletIndicatio ns:Psychophysio logical insomnia TAKE 1 TABLET BY MOUTH EVERYDAY AT BEDTIME 90 tablet 025 Active PARoxetine (Paxil) 10 MG tablet TAKE 1 TABLET BY MOUTH EVERY DAY 90 tablet 2 024 2024 Discontinued traZODone (Desyrel) 50 MG tabletIndicatio ns:Psychophysio logical insomnia TAKE 1 TABLET BY MOUTH EVERYDAY AT BEDTIME 90 tablet 1 024 2024 Discontinued(R eorder (will not trigger notification to Pharmacy)) omeprazole (PriLOSEC) [address] capsuleIndicati ons:Gastroesoph ageal reflux disease, unspecified whether esophagitis present TAKE 1 CAPSULE (20 MG) BY MOUTH BEFORE BREAKFAST 90 capsule 1 024 2024 Discontinued montelukast (Singulair) 10 MG tabletIndicatio ns:Mild persistent asthma without complication TAKE 1 TABLET BY MOUTH EVERY DAY IN THE EVENING 90 tablet 1 024 2024 Discontinued lisinopril 10 MG tabletIndicatio ns:Chronic pansinusitis TAKE 1 TABLET BY MOUTH EVERY DAY IN THE MORNING 90 tablet 1 024 2024 Discontinued baclofen (Lioresal) 10 MG tablet TAKE 1 TABLET BY MOUTH THREE TIMES A DAY 90 tablet 024 2024 Discontinued Active Problems Problem Noted Date Diagnosed Date Right hip pain 06/17/2024 Trochanteric bursitis of right hip 06/17/2024 Prediabetes 02/06/2024 Assessment & Plan (02/07/2024 4:07 PM EDT): Today extensive discussion was done about life style modifications I advise healthy diet (low calorie) and cardiovascular exercise Hypokalemia 01/08/2024 Assessment & Plan (02/07/2024 4:07 PM EDT): BMP to be repeated Obesity (BMI 35.0-39.9 without comorbidity) 10/16 Assessment & Plan (04/04/2024 12:21 PM EDT): Extensive discussion was done about life style modifications I advise healthy diet (low calorie) and cardiovascular exercise I will start patient on wegovy Chronic maxillary sinusitis 08/20/2023 Chronic pansinusitis 04/24/2023 Assessment & Plan (11/01/2023 11:04 AM EDT): Continue to follow with ENT I advise to take the prescribed antibiotic with full stomach and to drink plenty of water during her treatment Epigastric pain 04/24/2023 Assessment & Plan (04/24/2023 2:08 PM EST): I advise patient to avoid NSAIDs, spicy and acid food, I advise to eat at the same time every day, I advise to elevate the head of the bed and take medications as prescribe Vascular insufficiency 12/25/2022 Callus of foot 11/03/2022 Rash 11/03/2022 Acute non-recurrent frontal sinusitis 11/03/2022 Cough 11/02/2022 Skin tag 11/02/2022 Concetta-menopause 11/02/2022 Pain in finger 11/02/2022 Hemorrhoids 11/02/2022 Cramp in limb 11/02/2022 Colitis 11/02/2022 Bacterial sinusitis 11/02/2022 Obesity (BMI 30-39.9) 08/22/2018 Assessment & Plan (06/17/2024 2:20 PM EST): Today extensive discussion was done about life style modifications I advise healthy diet (low calorie) and cardiovascular exercise Essential hypertension 07/10/2018 Assessment & Plan (02/07/2024 4:07 PM EDT): I advise - Aerobic exercise to reduce BP. Initial goal of 30 min walk 3-5x/week. Increase as tolerated. - low-sodium diet (goal: <2g/day) and heart healthy diet such as DASH to reduce BP and prevent ASCVD. - Home BP monitoring 1-2 x day with goal of <140/90. - Seek immediate medical attention for chest pain, palpitations, SOB, syncope, or sudden changes in mental status. - Do not change or discontinue current prescriptions without first consulting health care provider Assessment & Plan (11/01/2023 11:03 AM EDT): - Aerobic exercise to reduce BP. Initial goal of 30 min walk 3-5x/week. Increase as tolerated. - low-sodium diet (goal: <2g/day) and heart healthy diet such as DASH to reduce BP and prevent ASCVD. - Home BP monitoring 1-2 x day with goal of <140/90. - Seek immediate medical attention for chest pain, palpitations, SOB, syncope, or sudden changes in mental status. - Do not change or discontinue current prescriptions without first consulting health care provider Assessment & Plan (08/20/2023 5:09 PM EST): - Aerobic exercise to reduce BP. Initial goal of 30 min walk 3-5x/week. Increase as tolerated. - low-sodium diet (goal: <2g/day) and heart healthy diet such as DASH to reduce BP and prevent ASCVD. - Home BP monitoring 1-2 x day with goal of <140/90. - Seek immediate medical attention for chest pain, palpitations, SOB, syncope, or sudden changes in mental status. - Do not change or discontinue current prescriptions without first consulting health care provider Assessment & Plan (04/24/2023 2:09 PM EST): -I increase her lisinopril to 10mg RTC 2 weeks with nurse if BP not at goal plan is to increase lisinopril to 40mg - Aerobic exercise to reduce BP. Initial goal of 30 min walk 3-5x/week. Increase as tolerated. - low-sodium diet (goal: <2g/day) and heart healthy diet such as DASH to reduce BP and prevent ASCVD. - Home BP monitoring 1-2 x day with goal of <140/90. - Seek immediate medical attention for chest pain, palpitations, SOB, syncope, or sudden changes in mental status. - Do not change or discontinue current prescriptions without first consulting health care provider Assessment & Plan (11/03/2022 3:15 PM EDT): - Aerobic exercise to reduce BP. Initial goal of 30 min walk 3-5x/week. Increase as tolerated. - low-sodium diet (goal: <2g/day) and heart healthy diet such as DASH to reduce BP and prevent ASCVD. - Home BP monitoring 1-2 x day with goal of <140/90. - Seek immediate medical attention for chest pain, palpitations, SOB, syncope, or sudden changes in mental status. -Patient forgot to take her lisinopril today I advise to take all her meds every day - Do not change or discontinue current prescriptions without first consulting health care provider Excessive and frequent menstruation 07/10/2018 Decreased thyroid stimulating hormone level 06/19 Snoring 09/27/2016 Allergic rhinitis 01/14/2015 Supraventricular tachycardia 06/25/2012 Gastroesophageal reflux disease 06/25/2012 Assessment & Plan (11/01/2023 11:03 AM EDT): I advise patient to avoid NSAIDs, spicy and acid food, I advise to eat at the same time every day, I advise to elevate the head of the bed and take medications as prescribe Asthma 06/25/2012 Assessment & Plan (02/07/2024 4:06 PM EDT): Counseling done to avoid asthma triggers Albuterol nebulization in office Prednisone 60mg for 5 days ED precautions reviewed Assessment & Plan (11/01/2023 11:03 AM EDT): Patient educated to avoid triggers C/w same medications Anxiety 06/25/2012 Encounters Date Type Department Care Team Description 07/10/2024 Refill [facility] [address], [place] [phone] Jamila Robledo MD Chronic pansinusitis; Mild persistent asthma without complication; Gastroesophageal reflux disease, unspecified whether esophagitis present; Psychophysiological insomnia 06/17/2024 12:30 PM EST Telemedicine [facility] MEDICINE [address] [place] [address] Jamila Robledo MD Obesity (BMI 30-39.9) (Primary Dx); Prediabetes; Right hip pain; Trochanteric bursitis of right hip 06/17/2024 Travel 05/30/2024 Refill [facility] WALK-IN C[facility] [address], [place] [phone] Jamila Robledo MD Prediabetes 05/05/2024 Travel 04/29/2024 Refill [facility] MED & PEDS [address], [place] [phone] Jamila Robledo MD Epigastric pain 04/23/2024 Refill [facility] [address], [place] [phone] Jamila Robledo MD from Last 3 Months Immunizations Name Administration Dates Next Due Influenza, IIV3, injectable 02/24/2009 Pneumococcal Conjugate PCV 20 11/01/2023 Pneumococcal Polysaccharide PPSV23 06/07/2005 Td (adult), 5 Lf tetanus tox oid, preservative free, adsorbed 10/14/2012 Tdap 06/20/2022,12/27/2009 Family History Medical History Relation Name Comments Diabetes Mother Hypertension Mother Relation Name Status Comments Mother Social History Tobacco Use Types Packs/Day Years Used Date Smoking Tobacco: Every Day Cigarettes 0.3 1.1 Started: 2023 Passive Smoke Exposure: Current Smokeless Tobacco: Never Tobacco Cessation:Ready to Q uit: Not Asked; Counseling Given: Not Answered Alcohol Use Standard Drinks/Week Comments Yes 0 [...] Orientation Straight 04/17/2022 10 :14 AM EDT Last Filed Vital Signs Vital Sign Reading Time Taken Comments Blood Pressure 132/89 04/04/2024 11:05 AM EDT Pulse 82 04/04/2024 11:05 AM EDT Temperature 36.3 ??C (97.4 ??F) 04/04/2024 1 1:05 AM EDT Respiratory Rate 21 04/04/2024 11:0 5 AM EDT Oxygen Saturation 97% 04/04/2024 11: 05 AM EDT Inhaled Oxygen Concentration - - Weight 85.2 kg (187 lb 12.8 oz) 024 11:05 AM EDT Height 160 cm (5' 3 ) 04/04/2024 11:05 AM EDT Body Mass Index 33.27 04/04/2024 11:05 AM EDT Plan of Treatment Upcoming Encounters Date Type Department Care Team (Late st Contact Info) Description 09/15/2024 11:15 AM EDT Office Visit [facility] MEDICINE [address] [place] [phone] Jamila Robledo MD [address] [place] [phone] 09/16/2024 9:30 AM EDT Procedure Visit [facility] MEDICINE [address] [place] [phone] Jamila Robledo MD [address] [place] [address] [phone] Health Maintenance Due Date Last Done Comments CT Colonography 1975 Colonoscopy 1975 Colorectal Cancer Screening 1975 FIT DNA/Cologuard 1975 FIT 1975 FOBT 1975 HIV Screening 1975 Sigmoidoscopy 1975 Family Planning (PISQ) 1990 Hepatitis B Vaccines (1 of 3 - 19+ 3-dose series) 1994 Pap Smear 1996 COVID-19 Vaccine ( season) 2024 05/02/2021, 09/01/2020 Influenza Vaccine (#1) 2024 02/24/2009 Mammogram 05/01/2024 05/01/2022, 10/16, 08/28/2018, Additional history exists Cervical Cancer Screening 08/27/2024 HPV/Cotest 08/27/2024 08/28/2019 SDOH Screening 10/17/2024 10/18/2023 Alcohol/Substance Use Screening 02/05/2025 02/06/2024 Depression Screening 02/05/2025 02/06/2024, 02/06/20 Diabetes: Hemoglobin A1C 03/11/2025 024, 01/08/2024, 10/07/2020 Tobacco Screening 04/04/2025 04/04/2024 Zoster Vaccines (1 of 2) 2025 Lipid Panel 01/07/2029 01/08/2024, 10/07/2020 DTaP/Tdap/Td Vaccines (4 - Td or Tdap) 06/20/2032 06/20/2022, 10/14/2012, 12/27/2009 RSV Patients and Patients Aged 60 years or older (1 - 1-dose 75+ series) 2050 Pneumococcal Vaccine: Pediatrics (0 to 5 Years) and At-Risk Patients (6 to 49) Years) Completed 11/01/2023, 06/07/2005 Hepatitis C Screening Completed 04/03/2024 HIB Vaccines Aged Out No longer eligi ble based on patient's age to complete this topic HPV Vaccines Aged Out No longer eligi ble based on patient's age to complete this topic Hepatitis A Vaccines Aged Out No long er eligible based on patient's age to complete this topic IPV Vaccines Aged Out No longer eligi ble based on patient's age to complete this topic Meningococcal Vaccine Aged Out No silvia dottie eligible based on patient's age to complete this topic RSV under 20 months Aged Out No longe r eligible based on patient's age to complete this topic Rotavirus Vaccines Aged Out No longer eligible based on patient's age to complete this topic Procedures Procedure Name Priority Date/Time Associated Diagnosis Comments HEPATITIS C ANTIBODY Routine 04/03/2024 11:38 AM EDT POCT GLYCATED HEMOGLOBIN, TOTAL Routine 03/11/2024 5:49 PM EDT Prediabetes LIPID PANEL, STANDARD Routine 01/08/2024 12:04 PM EDT Essential hypertension MAMMOGRAM GENERIC Routine 05/01/2022 11: 34 AM EST ZZZ HISTORICAL HPV MRNA E6/E7 Routine 08/28/2019 10:30 AM EDT from Last 3 Months or Most Recently Relevant to Health Maintenance Results * Hepatitis C Ab (04/03/2024 11:38 AM EDT) Hepatitis C Antibody Nonreactive Nonreactive [facility] Comment:Antibodies to HCV no t detected; does not exclude early acuteHCV infection. 04/03/2024 11:3 8 AM EDT 04/03/2024 11:48 AM EDT Generic External Data Provider LAB BLOOD ORDERAB LES Final Result Performing Organization Address City/State/[facility] Co de Phone Number [facility] [address] [place] [phone] * (ABNORMAL) POCT HGB A1C (03/11/2024 5:49 PM EDT) Pathologist [facility] Hemoglobin A1C 6.3(A) 4.0 - 6.0 % QC Media Lot # [id number] Lot# Expiration Date ,[id number] Blood 03/11/2024 5:49 PM EDT Wicho Desai MD POINT OF CARE TEST ENTER/EDIT OR DERABLES Final Result * (ABNORMAL) Lipid Panel, Standard (01/08/2024 12:04 PM EDT) Triglycerides 143 <150 mg/dL [facility] Comment:Desirable Triglyceri de: less than 150 mg/dLBorderline High Triglyceride 150-199 mg/dLHigh Triglyceride: 200-499 mg/dLVery High Triglyceride: greater than or equal to 5OO mg/dL Cholesterol 187 <200 mg/dL [facility] Comment:Desirable Cholestero l: less than 200 mg/dLBorderline High Cholesterol: 200-239 mg/dLHigh Cholesterol: greater than 239 mg/dL LDL Cholesterol Calculated 119(H) <100 mg/dL [facility] Comment:Desirable LDL: less than 100 mg/dLNear Optimal/Above Optimal LDL: 110- 129 mg/dLBorderline High LDL: 130-159 mg/dLHigh LDL: 160-189 mg/dLVery High LDL: greater than or equal to 190 mg/dL HDL Cholesterol 40(L) >40 mg/dL [facility] Comment:Desirable HDL: great er than 40 mg/dL Note: This HDL assay may give artificially low results in patients with liver disease. Blood Venous blood specimen / Unknown 01/08/2024 12:04 PM EDT 01/08/2024 1:04 PM EDT us Jamila Beebe MD LAB BLOOD ORDERABLES Final Result Performing Organization Address City/State/[facility] Co de Phone Number [facility] [address] [place] [phone] * Mammography Report 1 (05/01/2022 11:34 AM EST) Anatomical Region Laterality Modality Breast Bilateral Mammography 05/01/2022 11:3 4 AM EST Narrative 05/01/2022 12:16 PM EST Refer to the Notes tab for result details [facility] Procedure: Mammography Report 1 Procedure Note ProviderArmen MD - 09/10/2022 Refer to the Notes tab for result details [facility] Procedure: Mammography Report 1 us Kimberley Tavares SAP MOBILITY ARCHITECT IMG BI PROCEDURES Final Result * HPV mRNA E6/E7 (08/28/2019 10:30 AM EDT) HPV mRNA E6/E7 Not Detected NOT DETECTED [facility] Comment: This test was performed using the APTIMA(R) HPV Assay ([employer] This assay detects E6/E7 viral messenger RNA (mRNA) from 14 high-risk HPV types (16,18,31,33,35,39,45,51, 52,56,58,59,66,68). For additional information please refer to: http://education.[employer]/faq/FPF818k3 (This link is being provided for informational/ educational purposes only.) The analytical performance characteristics of this assay have been determined by [employer] [place], [place]. The modifications have not been cleared or approved by the FDA. This assay has been validated pursuant to the CLIA regulations and is used for clinical purposes. Test Performed by [facility], [facility] [facility], [address] [place] [address] Tam Reeder M.D., Ph.D., Director of Laboratories , CLIA [id number] Please note: ??Effective 02/28/2016, HPV testing will be performed using [employer]'s APTIMA test which targets mRNA. Detecting mRNA instead of DNA, as in older methods, offers significant improvements in specificity. 08/28/2019 10:3 0 AM EDT Jamila Beebe MD HISTORICAL/NON ORDERA BLE LABS Final Result [facility] [address] from Last 3 Months or Most Recently Relevant to Health Maintenance Insurance [facility] Care Teams Sidewalk Repairer Relationship Specialty Start Date End Date Jamila Robledo MD [address] [place] [phone] PCP - General Family Medicine 05/02/19
--- OUTSIDE RECORDS SUMMARY | 2024-07-17 13:52 | XMS_ITS | Encounter Summary ---
Author Organization [employer] Address [address] [facility] [address] [place] [address] Care Team Providers Care Personal Banking Advisor Name Role Phone Jamila Robledo MD Primary Care Provide r Encounter Details Date Type Department Care Team ([facility] Contact Info) Description 03/18/2024 Orders Only [facility] MEDICINE [address] [place], [place] [phone] Jamila Robledo MD [address], [place] [phone] Social History Tobacco Use Types Packs/Day Years [...] the past 12 months, has t he [employer], gas, oil or water [employer] threatened to shut off services in your [...] Description 09/15/2024 11:15 AM EDT Office Visit [facility] MEDICINE [address] [place] [phone] Jamila Robledo MD [address] [place] [phone] 09/16/2024 9:30 AM EDT Procedure Visit [facility] MEDICINE [address] [place] [address] [phone] Jamila Robledo MD [address] [place] [phone] documented as of this encounter Visit Diagnoses Not on filedocumented in this encounter Additional Health Concerns Assessment Noted Time PHQ-9 Depression Total Score: 0 02/06/20 24 2:56 PM EDT documented as of this encounter Care Teams Personal Banking Advisor Relationship Specialty Start Date End Date Jamila Robledo MD [address] [place] [address] [phone] PCP - General Family Medicine 05/02/19 documented as of this encounter
== END 2024-07-16 10:23 | disposition home or self-care (01) ==
LOC: HO.HOSX 10:22
PROVIDERS: Visit Provider Physician Assistant
DX: Z13.89 Encounter for screening for other disorder (principal)

== ENCOUNTER 2024-07-18 09:50 | Outpatient (AMB) | payer OTHER, SELFPAY ==
--- NOTE | 2024-07-18 09:54 | MHC.OFFVIS ---
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 Patient pain presented about 1 week prior to [facility] walk in visit on 06/09/24. She was prescribed prednisone and had followed up with her PCP who referred to orthopedics. Her pain is located at the lateral aspect of hip. Her pain is constant and fluctuates in intensity daily. Her pain increases of pain with ambulation, prolong standing, and stair use. States at times her pain is severe and causes her to limp. Denies injury. No previous tx. Finds very little relief with ibuprofen. 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 She states the pain has been present for over 3 months and it is along the lateral aspect of her hip which radiates down the leg. She has pain that is worse with standing and sleeping on the right side. No treatment to date. [facility] Medical History (Updated 06/09/24 @ 15:45 by Clara Rolle PA-C) Bleeding hemorrhoids Chronic back pain Sleep apnea Depression GERD (gastroesophageal reflux disease) Anxiety Hypertension Asthma Tachycardia Surgical History Tubal ligation status H/O hand surgery Hx of foot surgery History of esophagogastroduodenoscopy (EGD) H/O colonoscopy Family History Father Stomach cancer Social History Household Members: Family Alcohol intake: never Patient Tobacco Use Status: Current everyday Tobacco user Tobacco use type: Cigarette Cigarettes Per Day: 10 Years Smoked: 40 Review of Systems Const All systems reviewed & are unremarkable except as noted in HPI and below Physical Exam Vital Signs: BMI result Body Mass Index 33.8 Const General: cooperative and no acute distress Orientation/consciousness: patient oriented x3 Resp Effort & Inspection: normal respiratory effort and able to speak in complete sentences Cardio Peripheral pulses: Peripheral pulses 2+ throughout Neuro General: patient oriented x3 Extrem Other: Right hip normal to inspection. No pain with ROM of the hip. Pain along the greater trochanter. No pain with hip flexion or abduction.There is no tenderness along the si joint, Negative SLR. NVI. Office Procedures AMB Joint Injection/Aspiration Joint Injection/Aspiration Details: right trochanteric bursa Injected: 40 mg of, DepoMedrol, with 8 mL of and 1% plain lidocaine Procedure: The patient tolerated the procedure well and there was some relief with the local anesthesia Coding - Glenohumeral/Tronchanteric Bursa/Intraarticular Procedure code (CPT) selection complete Results Reviewed Results Reviewed: R hip RT min 2V IMPRESSION: No acute visible fracture or dislocation. Assessment & Plan Assessment & Plan (1) Bursitis of hip, right: Code(s): M70.71 - Other bursitis of hip, right hip Category: Medical Qualifiers: Hip bursitis location: trochanteric bursitis Qualified Code(s): M70.61 - Trochanteric bursitis, right hip Plan: We discussed options today which include cortisone injection and physical therapy. I did stress the importance of working with physical therapy to strengthen the stabilizing muscles of the. Modification of activity. She is interested in an injection today which we did proceed with. Consent was obtained and she tolerated the procedure well. I did explain over the next 72 hours she should monitor her blood glucose levels as the steroid injection can elevate these. If she notices extremely high glucose levels or as well i.e. dizziness shortness of breath she should present to the emergency department for further evaluation. She will see me back in 6-8 weeks if symptoms persist otherwise follow up as needed. Orders: Orders PT Evaluation and Treatment Today M70.61 - Trochanteric bursitis, right hip Coding Level of Care Code New Pt Level 3 (81875) Complex EM visit Add On G2211 Diagnoses Trochanteric bursitis of right hip M70.61 Hip bursitis location: trochanteric bursitis CPT Codes Coding - Joint 7: 71620 - Glenohumeral/Tronchanteric Bursa/Intraarticular ([id number])
[2024-07-18 10:01] VITALS: BMI 33.8
--- OUTSIDE RECORDS SUMMARY | 2024-07-18 10:29 | XMS_ITS | Encounter Summary ---
Author Organization [employer] Address [address] [facility] 7t [place] [address] Care Team Providers Care Web Project Manager Name Role Phone Jamila Robledo MD Primary Care Provide r Reason for Visit * Reason Comments Med Change Request Encounter Details Date Type Department Care Team ([facility] Contact Info) Description 07/17/2023 Refill [facility] WALK[facility]ENTER [address] [place], [place] [phone] Ruth Costello FNP [address] [place] [address] Social History Tobacco Use Types Packs/Day Years [...] Description 09/15/2024 11:15 AM EDT Office Visit [facility] MEDICINE [address] [place] [address] [phone] Jamila Robledo MD [address] [place] [address] [phone] 09/16/2024 9:30 AM EDT Procedure Visit [facility] MED[facility]INE [address] [place] [address] 72061 Jamila Robledo MD [address] [place] [address] [phone] documented as of this encounter Visit Diagnoses Not on filedocumented in this encounter Additional Health Concerns Assessment Noted Time PHQ-9 Depression Total Score: 9 11/04/19 23 2:36 PM EDT documented as of this encounter Care Teams Web Project Manager Relationship Specialty Start Date End Date Jamila Robledo MD [address] [place] [address] [phone] PCP - General Family Medicine 05/02/19 documented as of this encounter
--- OUTSIDE RECORDS SUMMARY | 2024-07-18 10:29 | XMS_ITS | Encounter Summary ---
Author Organization [employer] Address [address] [place] [address] 7t [place] [address] Care Team Providers Care Liver Trimmer Name Role Phone Jamila Robledo MD Primary Care Provide r Reason for Visit * Reason Comments Med Refill Encounter Details Date Type Department Care Team ([facility] st Contact Info) Description 08/08/2023 Refill [facility] MEDICINE [address] [place], [place] [phone] Jamila Robledo MD [address] [place] [address] Psychophysiological insomnia Social History Tobacco Use Types [...] Office Visit [facility] MEDICINE [address] [place] [address] 64[address] Jamila Robledo MD [address] [place] [phone] 09/16/2024 9:30 AM EDT Procedure Visit [facility] MEDICINE [address] [place] [address] 125[address] Jamila Robledo MD [address] [place], [place] [phone] documented as of this encounter Visit Diagnoses Diagnosis Psychophysiological insomnia Persistent disorder of initiating or maintaining sleep documented in this encounter Additional Health Concerns Assessment Noted Time PHQ-9 Depression Total Score: 9 11/04/19 23 2:36 PM EDT documented as of this encounter Care Teams Liver Trimmer Relationship Specialty Start Date End Date Jamila Robledo MD [address] [place] [address] [phone] PCP - General Family Medicine 05/02/19 documented as of this encounter
--- OUTSIDE RECORDS SUMMARY | 2024-07-18 10:29 | XMS_ITS | Encounter Summary ---
Author Organization [employer] Address 75 [facility] 7t [place] [address] Care Team Providers Care Armature Winder Name Role Phone Jamila Robledo MD Primary Care Provide r Reason for Visit * Reason Comments Med Change Request Encounter Details Date Type Department Care Team ([facility] Contact Info) Description 06/28/2023 Refill [facility] WALK-IN CENTER [address] [place], [place] [phone] Ruth Costello FNP [address] [place] [address] Upper back pain on left side Social [...] Description 09/15/2024 11:15 AM EDT Office Visit [facility] MEDICINE [address] [place] [phone] Jamila Robledo MD [address] [place] [address] [phone] 09/16/2024 9:30 AM EDT Procedure Visit [facility] MEDICINE [address] [place] [address] Jamila Robledo MD [address] [place] [address] [phone] documented as of this encounter Visit Diagnoses Diagnosis Upper back pain on left side documented in this encounter Additional Health Concerns Assessment Noted Time PHQ-9 Depression Total Score: 9 11/04/19 23 2:36 PM EDT documented as of this encounter Care Teams Armature Winder Relationship Specialty Start Date End Date Jamila Robledo MD [address] [place] [address] [phone] PCP - General Family Medicine 05/02/19 documented as of this encounter
--- OUTSIDE RECORDS SUMMARY | 2024-07-18 10:29 | XMS_ITS | Encounter Summary ---
Author Organization [employer] Address 75 [facility] 7t [place] [address] Care Team Providers Care Trust Administrative Assistant Name Role Phone Jamila Robledo MD Primary Care Provide r Encounter Details Date Type Department Care Team ([facility] Contact Info) Description 03/18/2024 Orders Only [facility] MEDICINE 230 [place], [place] [phone] Jamila Robledo MD 230 [place], [place] [phone] Social History Tobacco Use Types Packs/Day Years [...] the past 12 months, has t he [employer], gas, oil or water [employer] threatened to shut off services in your [...] Description 09/15/2024 11:15 AM EDT Office Visit [facility] MEDICINE [address] [place] [phone] Jamila Robledo MD [address] [place] [phone] 09/16/2024 9:30 AM EDT Procedure Visit [facility] MEDICINE [address] [place] [address] [phone] Jamila Robledo MD [address] [place] [address] [phone] documented as of this encounter Visit Diagnoses Not on filedocumented in this encounter Additional Health Concerns Assessment Noted Time PHQ-9 Depression Total Score: 0 02/06/20 24 2:56 PM EDT documented as of this encounter Care Teams Trust Administrative Assistant Relationship Specialty Start Date End Date Jamila Robledo MD [address] [place] [address] [phone] PCP - General Family Medicine 05/02/19 documented as of this encounter
--- OUTSIDE RECORDS SUMMARY | 2024-07-18 10:30 | XMS_ITS | Encounter Summary ---
Author Organization [employer] Address [address] [place] [address] [place] [address] Care Team Providers Care Loan Approver Name Role Phone Jamila Robledo MD Primary Care Provide r Reason for Visit * Reason Comments Med Refill Encounter Details Date Type Department Care Team (Late Contact Info) Description 01/19/2023 Refill [facility] MEDICINE [address] [place] [address] [phone] Liza Matos FNP [address] [place] [address] Dept [place] [address] Psychophysiological insomnia Social History Tobacco Use Types [...] Description 09/15/2024 11:15 AM EDT Office Visit [facility] MEDICINE [address] [place] [address] [phone] Jamila Robledo MD 230 [place], [place] [phone] 09/16/2024 9:30 AM EDT Procedure Visit [facility] MEDICINE 230 [place], [place] [phone] Jamila Robledo MD [address] [place] [address] [phone] documented as of this encounter Visit Diagnoses Diagnosis Psychophysiological insomnia Persistent disorder of initiating or maintaining sleep documented in this encounter Additional Health Concerns Assessment Noted Time PHQ-9 Depression Total Score: 9 11/04/19 23 2:36 PM EDT documented as of this encounter Care Teams Loan Approver Relationship Specialty Start Date End Date Jamila Robledo MD [address] [place] [address] [phone] PCP - General Family Medicine 05/02/19 documented as of this encounter
--- OUTSIDE RECORDS SUMMARY | 2024-07-18 10:30 | XMS_ITS | Encounter Summary ---
Author Organization [employer] Address [address] [facility] 7t [place] [address] Care Team Providers Care Rater Associate Name Role Phone Jamila Robledo MD Primary Care Provide r Reason for Visit * Reason Onset Date Comments Nurse Triage 02/27/2024 Encounter Details Date Type Department Care Team ([facility] Contact Info) Description 02/27/2024 Telephone [facility] 230 [place], [place] [phone] Jamila Robledo MD 230 [place] [address] Nurse Triage Social History Tobacco Use Types [...] the past 12 months, has t he [employer], gas, oil or water [employer] threatened to shut off services in your [...] to check this. Advised to come to [facility] open till 8pm today and th, fri, 830a-4p. Pt agrees with this disposition and will come to [facility] probably in the morning. Insurance is verified [...] Description 09/15/2024 11:15 AM EDT Office Visit [facility] [address] [place] [address] [phone] Jamila Robledo MD [address] [place] [address] [phone] 09/16/2024 9:30 AM EDT Procedure Visit [facility] [address] [place] [address] [phone] Jamila Robledo MD [address] [place] [address] [phone] documented as of this encounter Visit Diagnoses Not on filedocumented in this encounter Additional Health Concerns Assessment Noted Time PHQ-9 Depression Total Score: 0 02/06/20 24 2:56 PM EDT documented as of this encounter Care Teams Rater Associate Relationship Specialty Start Date End Date Jamila Robledo MD [address] [place] [address] [phone] PCP - General Family Medicine 05/02/19 documented as of this encounter
--- OUTSIDE RECORDS SUMMARY | 2024-07-18 10:30 | XMS_ITS | Encounter Summary ---
Author Organization [employer] Address [address] [facility] [address] 7t [place] [address] Care Team Providers Care Habilitation Training Specialist Name Role Phone Jamila Robledo MD Primary Care Provide r Reason for Visit * Reason Comments Med Refill Encounter Details Date Type Department Care Team ([facility] st Contact Info) Description 07/10/[address] [facility] MED & PEDS [address] [place] [address] Jamila Robledo MD [address] [place] [address] Chronic pansinusitis; Mild persistent asthma without complication; [...] Description 09/15/2024 11:15 AM EDT Office Visit [facility] MEDICINE [address] [place] [phone] Jamila Robledo MD [address] [place] [phone] 09/16/2024 9:30 AM EDT Procedure Visit [facility] MEDICINE [address] [place] [address] [phone] Jamila Robledo MD [address] [place] [address] [phone] documented as of this encounter Visit Diagnoses Diagnosis Chronic pansinusitis Other chronic sinusitis Mild persistent asthma without complication Gastroesophageal reflux disease, unspecified whether esophagitis present Psychophysiological insomnia Persistent disorder of initiating or maintaining sleep documented in this encounter Additional Health Concerns Assessment Noted Time PHQ-9 Depression Total Score: 0 02/06/20 24 2:56 PM EDT documented as of this encounter Care Teams Habilitation Training Specialist Relationship Specialty Start Date End Date Jamila Robledo MD [address] [place] [address] PCP - General Family Medicine 05/02/19 documented as of this encounter
--- OUTSIDE RECORDS SUMMARY | 2024-07-18 10:30 | XMS_ITS | Clinical Summary ---
Author Organization [employer] Address [address] [place] [address] 7t [place] [address] Care Team Providers Care Satellite Dish Repairer Name Role Phone Jamila Robledo MD [...] 2024 Active Blood Glucose Monitoring Suppl (FreeStyle [place] Lite) w/Device kitIndications: Prediabetes Use to test [...] Type Department Care Team Description 07/10/2024 Refill [facility] MED & PEDS [address] [place], [place] [phone] Jamila Robledo MD Chronic pansinusitis; Mild persistent asthma without complication; Gastroesophageal reflux disease, unspecified whether esophagitis present; Psychophysiological insomnia 06/17/2024 12:[address] [facility] MEDICINE [address] [place] [address] Jamila Robledo MD Obesity (BMI 30-39.9) (Primary Dx); Prediabetes; Right hip pain; Trochanteric bursitis of right hip 06/17/2024 Travel 05/30/[address] [facility] WALK[facility]IN CENTER [address] [place], [place] [phone] Jamila Robledo MD Prediabetes 05/05/2024 Travel 04/29/[address] [facility] MED & PEDS [address] [place], [place] [phone] Jamila Robledo MD Epigastric pain 04/23/2024 Refill [facility] MED & PEDS [address] [place], [place] [phone] Jamila Robledo MD from Last 3 Months [...] Description 09/15/2024 11:15 AM EDT Office Visit [facility] MED[facility] [address] [place] [phone] Jamila Robledo MD [address] [place] [address] [phone] 09/16/2024 9:30 AM EDT Procedure Visit [facility] MED[facility] [address] [place] [address] [phone] Jamila Robledo MD [address] [place] [address] [phone] Health Maintenance Due Date Last Done Comments [...] AM EDT) Hepatitis C Antibody Nonreactive Nonreactive [facility] Comment:Antibodies to HCV no t detected; does not exclude early acuteHCV infection. 04/03/2024 11:3 8 AM EDT 04/03/2024 11:48 AM EDT Generic External Data Provider LAB BLOOD ORDERAB LES Final Result Performing Organization Address City/State/[facility] Co de Phone Number [facility] [address] [place] [phone] * (ABNORMAL) POCT HGB A1C (03/11/2024 5:49 PM EDT) Pathologist [facility] Hemoglobin A1C 6.3(A) 4.0 - 6.0 % QC Media Lot # [id number] Lot# Expiration Date ,[id number] Blood 03/11/2024 5:49 PM EDT Wicho Desai MD POINT OF CARE TEST ENTER/EDIT OR DERABLES Final Result * (ABNORMAL) Lipid Panel, Standard (01/08/2024 12:04 PM EDT) Triglycerides 143 <150 mg/dL [facility] Comment:Desirable Triglyceri de: less than 150 mg/dLBorderline High Triglyceride 150-199 mg/dLHigh Triglyceride: 200-499 mg/dLVery High Triglyceride: greater than or equal to 5OO mg/dL Cholesterol 187 <200 mg/dL [facility] Comment:Desirable Cholestero l: less than 200 mg/dLBorderline High Cholesterol: 200-239 mg/dLHigh Cholesterol: greater than 239 mg/dL LDL Cholesterol Calculated 119(H) <100 mg/dL [facility] Comment:Desirable LDL: less than 100 mg/dLNear Optimal/Above Optimal LDL: 110- 129 mg/dLBorderline High LDL: 130-159 mg/dLHigh LDL: 160-189 mg/dLVery High LDL: greater than or equal to 190 mg/dL HDL Cholesterol 40(L) >40 mg/dL [facility] Comment:Desirable HDL: great er than 40 mg/dL Note: This HDL assay may give artificially low results in patients with liver disease. Blood Venous blood specimen / Unknown 01/08/2024 12:04 PM EDT 01/08/2024 1:04 PM EDT us Jamila Beebe MD LAB BLOOD ORDERABLES Final Result Performing Organization Address City/State/[facility] Co de Phone Number [facility] [address] [place] [phone] * Mammography Report 1 (05/01/2022 11:34 AM EST) Anatomical Region Laterality Modality Breast Bilateral Mammography 05/01/2022 11:3 4 AM EST Narrative 05/01/2022 12:16 PM EST Refer to the Notes tab for result details [facility] Procedure: Mammography Report 1 Procedure Note ProviderArmen MD - 09/10/2022 Refer to the Notes tab for result details [facility] Procedure: Mammography Report 1 us Kimberley Tavares SALES AND SERVICE ENGINEER IMG BI PROCEDURES Final Result * HPV mRNA E6/E7 (08/28/2019 10:30 AM EDT) HPV mRNA E6/E7 Not Detected NOT DETECTED [facility] Comment: This test was performed using the APTIMA(R) HPV Assay ([employer] This assay detects E6/E7 viral messenger RNA (mRNA) from 14 high-risk HPV types (16,18,31,33,35,39,45,51, 52,56,58,59,66,68). For additional information please refer to: http://education.[employer]/faq/JAY375u6 (This link is being provided for informational/ educational purposes only.) The analytical performance characteristics of this assay have been determined by [employer] [place], [place]. The modifications have not been cleared or approved by the FDA. This assay has been validated pursuant to the CLIA regulations and is used for clinical purposes. Test Performed by [employer], [email or web address] [facility], [address] [place] [address] Tam Reeder M.D., Ph.D., Director of Laboratories , CLIA [id number] Please note: ??Effective 02/28/2016, HPV testing will be performed using [employer]'s APTIMA test which targets mRNA. Detecting mRNA instead of DNA, as in older methods, offers significant improvements in specificity. 08/28/2019 10:3 0 AM EDT Jamila Beebe MD HISTORICAL/NON ORDERA BLE LABS Final Result [facility] [address] from Last 3 Months or Most Recently Relevant to Health Maintenance Insurance [facility] Care Teams Satellite Dish Repairer Relationship Specialty Start Date End Date Jamila Robledo MD [address] [place] [address] [phone] PCP - General Family Medicine 05/02/19
--- OUTSIDE RECORDS SUMMARY | 2024-07-18 10:30 | XMS_ITS | Encounter Summary ---
Author Organization [employer] Address [address] [facility] 7t [place] [address] Care Team Providers Care Electron Beam Photo Mask Maker Name Role Phone Jamila Robledo MD Primary Care Provide r Reason for Visit * Reason Onset Date Comments Med Change Request 03/11/2024 Encounter Details Date Type Department Care Team ([facility] Contact Info) Description 03/11/2024 Telephone [facility] MEDICINE [address] [place] [address] Jamila Robledo MD [address] [place] [address] Med Change Request Social History Tobacco Use [...] the past 12 months, has t he [employer], gas, oil or water [employer] threatened to shut off services in your [...] Description 09/15/2024 11:15 AM EDT Office Visit [facility] MEDICINE [address] [place] [address] [phone] Jamila Robledo MD [address] [place] [address] [phone] 09/16/2024 9:30 AM EDT Procedure Visit [facility] MEDICINE [address] [place] [address] [phone] Jamila Robledo MD [address] [place] [address] [phone] documented as of this encounter Visit Diagnoses Not on filedocumented in this encounter Additional Health Concerns Assessment Noted Time PHQ-9 Depression Total Score: 0 02/06/20 24 2:56 PM EDT documented as of this encounter Care Teams Electron Beam Photo Mask Maker Relationship Specialty Start Date End Date Jamila Robledo MD [address] [place] [address] PCP - General Family Medicine 05/02/19 documented as of this encounter
--- OUTSIDE RECORDS SUMMARY | 2024-07-18 10:30 | XMS_ITS | Encounter Summary ---
Author Organization [employer] Address [address] [place] [address] 7t [place] [address] Care Team Providers Care Admissions Clerk Name Role Phone Jamila Robledo MD Primary Care Provide r Reason for Visit * Reason Comments Med Refill Encounter Details Date Type Department Care Team ([facility] Contact Info) Description 11/28/2022 Refill [facility] [address] [place] [phone] Jamila Robledo MD [address] [place] [address] Acute non-recurrent frontal sinusitis Social History Tobacco [...] Upcoming Encounters Date Type Department Care Team ([facility] Contact Info) Description 09/15/2024 11:15 AM EDT Office Visit [facility] [address] [place] [phone] Jamila Robledo MD [address] [place] [phone] 09/16/2024 9:30 AM EDT Procedure Visit [facility] [address] [place] [address] [phone] Jamila Robledo MD [address] [place] [phone] documented as of this encounter Visit Diagnoses Diagnosis Acute non-recurrent frontal sinusitis documented in this encounter Additional Health Concerns Assessment Noted Time PHQ-9 Depression Total Score: 9 11/04/19 23 2:36 PM EDT documented as of this encounter Care Teams Admissions Clerk Relationship Specialty Start Date End Date Jamila Robledo MD [address] [place] [phone] PCP - General Family Medicine 05/02/19 documented as of this encounter
== END 2024-07-18 10:24 | disposition home or self-care (01) ==
PROVIDERS: PCP Internal Medicine; Visit Provider Physician Assistant
DX: M70.61 Trochanteric bursitis, right hip (principal)
CPT/HCPCS: 20610; 99203

== ENCOUNTER → 2024-07-18 09:50 | Outpatient (BNVA) | payer OTHER, SELFPAY | PROVIDERS: PCP Internal Medicine; Visit Provider Physician Assistant | DX: M70.61 Trochanteric bursitis, right hip (principal) | CPT/HCPCS: 20610; 99202; J1010; J2003 ==

== ENCOUNTER 2024-08-13 09:59 | Outpatient (REF) | payer OTHER, SELFPAY ==
[2024-08-13 11:14] LABS: MANUAL DIFF FLAG NO
[2024-08-13 11:17] LABS: Basophils Absolute Auto 0.1 X10*3/uL (0.0-0.2); Eosinophils Absolute Auto 0.4 X10*3/uL (0.0-0.4); Eosinophils Percent Auto 8.2 % (0-4); Hematocrit 42.4 % (37.0-47.0); Hemoglobin 14.3 g/dl (12.0-16.0); Imm Gran Abs Auto 0.01 X10*3/uL (0.00-0.03); Imm Gran Pct Auto 0.2 % (0.0-0.4); Lymphocytes Absolute Auto 1.6 X10*3/uL (1.2-4.9); Lymphocytes Percent Auto 33.1 % (20-40); Mean Corpuscular HGB Conc 33.7 g/dl (31.0-35.0); Mean Corpuscular Hemoglobin 28.6 pg (27.0-33.0); Mean Corpuscular Volume 84.8 fL (80.0-98.0); Mean Platelet Volume 10.1 fL (9.4-12.3); Monocytes Absolute Auto 0.5 X10*3/uL (0.1-1.2); Monocytes Percent Auto 9.9 % (2-11); Neutrophils Absolute Auto 2.3 x10*3/uL (2.0-8.3); Neutrophils Percent Auto 47.6 % (45-73); Platelet Count 240 X10*3/uL (160-400); Red Cell Distribution Width 13.7 % (11.0-16.0); White Blood Count 4.9 X10*3/uL (4.8-10.8)
[2024-08-13 11:38] LABS: Anion Gap 11 (12-20); Blood Urea Nitrogen 14 mg/dL (9-16); Calcium 8.8 mg/dL (8.4-10.2); Carbon Dioxide 29 mmol/L (22-29); Chloride 104 mmol/L (96-108); Estimated Glomerular Filt Rate > 60; Glucose Random 114 mg/dL (60-115); Iron 99 mcg/dL (30-160); Percent Iron Saturation 32 % (15-50); Potassium 3.2 mmol/L (3.3-5.1); Sodium 141 mmol/L (135-145); Total Iron Binding Capacity 314 mcg/dL (228-428); Unsaturated Iron Binding 215 ug/dL
[2024-08-13 11:48] LABS: Ferritin 155 ng/mL (10-250); TSH reflex Free T4 0.63 uIU/mL (0.32-4.0)
--- OUTSIDE RECORDS SUMMARY | 2024-08-13 11:59 | XMS_ITS | Encounter Summary ---
Author Organization [employer] Address [address] [place] [address] 7t [place] [address] Care Team Providers Care It Application Support Analyst Name Role Phone Jamila Robledo MD Primary Care Provide r Reason for Visit * Reason Comments Med Refill Encounter Details Date Type Department Care Team ([facility] Contact Info) Description 11/28/2022 Refill [facility] [address] [place] [address] Jamila Robledo MD [address] [place] [address] Acute non-recurrent frontal sinusitis Social History Tobacco [...] Upcoming Encounters Date Type Department Care Team ([facility] Contact Info) Description 09/15/2024 11:15 AM EDT Office Visit [facility] [address] [place] [phone] Jamila Robledo MD [address] [place] [phone] 09/16/2024 9:30 AM EDT Procedure Visit [facility] [address] [place] [address] [phone] Jamila Robledo MD [address] [place] [phone] documented as of this encounter Visit Diagnoses Diagnosis Acute non-recurrent frontal sinusitis documented in this encounter Additional Health Concerns Assessment Noted Time PHQ-9 Depression Total Score: 9 11/04/19 23 2:36 PM EDT documented as of this encounter Care Teams It Application Support Analyst Relationship Specialty Start Date End Date Jamila Robledo MD [address] [place] [phone] PCP - General Family Medicine 05/02/19 documented as of this encounter
--- OUTSIDE RECORDS SUMMARY | 2024-08-13 11:59 | XMS_ITS | Encounter Summary ---
Author Organization [employer] Address [address] [place] [address] 7t [place] [address] Care Team Providers Care Children'S Service Worker Name Role Phone Jamila Robledo MD Primary Care Provide r Reason for Referral * Consultation (Routine) - Authorized Specialty Diagnoses / Procedures Referred By Erik t Referred To Contact Obstetrics and Gynecology Diagnoses Abnormal vaginal bleeding Aide Bishop MD [address] [place] [address] Phone: tel: fax: [facility] [address] 5[address] (Main Hospital Entrance) [place], [place] Phone: tel: fax: Referral ID Status Reason Start Date Expiration Date Visits Requested Visits Authorized [id number] Authorized Specialty Services Required 08/13/2024 08/13/2025 1 1 * Imaging (Routine) - Authorized Specialty Diagnoses / Procedures Referred By Contac t Referred To Contact Radiology Diagnoses Abnormal vaginal bleeding Procedures US Pelvis Transvaginal Aide Bishop MD [address] [place] [address] Phone: tel: fax: [facility] [address] [place] [address] Phone: tel: fax: Referral ID Status Reason Start Date Expiration Date V isits Requested Visits Authorized [id number] Authorized 08/13/2024 08/13/2025 1 1 Reason for Visit * Reason Comments Vaginal Bleeding Encounter Details Date Type Department Care Team ([facility] st Contact Info) Description 08/13/2024 9:20 AM EST Office Visit [facility] [address] [place] [address] Aide Bishop MD [address] [place] [address] Abnormal vaginal bleeding (Primary Dx) Social History Tobacco Use Types Packs/Day Years Used Date Smoking Tobacco: Every Day Cigarettes 0.3 1.2 Started: 2023 Passive Smoke Exposure: Current Smokeless [...] t he electric, gas, oil or water [employer] threatened to shut off services in your home? Yes 10/18/2023 Depression Answer Date Recorded Patient Health Questionnaire-2 Score 0 02/06/2024 Comments No Sex and Gender Information Value Date Recorded Sex Assigned at Female 04/17/2022 10:14 AM EDT Legal Sex Female 10:14 AM EDT Gender Identity Female 04/17/2022 10:14 AM EDT Sexual Orientation Straight 04/17/2022 10 :14 AM EDT documented as of this encounter Last Filed Vital Signs Vital Sign Reading Time Taken Comments Blood Pressure 132/88 08/13/2024 9:25 AM EST Pulse 87 08/13/2024 9:25 AM EST Temperature 36.6 ??C (97.9 ??F) 08/13/2024 9:25 AM ES T Respiratory Rate 18 08/13/2024 9:25 AM EST Oxygen Saturation 97% 08/13/2024 9:25 AM EST Inhaled Oxygen Concentration - - Weight 86.6 kg (191 lb) 08/13/2024 9:25 AM EST Height - - Body Mass Index 33.83 04/04/2024 11:05 AM EDT documented in this encounter Progress Notes * Akash Donohue - 08/13/2024 9:20 AM EST Subjective Patient ID: Rohini Conner is a 49 y.o. female with past medical history of hypertension, SVT, GERD, asthma, prediabetes, and allergies who presents to walk in clinic for Vaginal Bleeding. Per triage: Reports last menses was 5 months ago. Per pt last menses was normal. Reports onset of bleeding last night. Changing every 2 hours. No large blood clots. Having mild cramping. No severe constant pain. No dizziness. Pt also reporting ALEXANDER sx. Pt reports she has had irregular periods for the last year and a half, where she would have her period every 3 months. She reports she has not had her period for the past 5 months until 2 days ago when she started having vaginal bleeding. Pt notes she has heavy bleeding and has felt increasingly tired and has decreased energy. Denies any blood clots or passing tissue-like substances. Is not currently established with an SOCIAL STAFF WORKER. She reports she has had a low potassium previously. Has tried ibuprofen without relief. Review of Systems Constitutional: Negative for fever and unexpected weight change. Respiratory: Negative for shortness of breath. Cardiovascular: Negative for chest pain. Gastrointestinal: Negative for abdominal pain and blood in stool. Genitourinary: Positive for menstrual problem and vaginal bleeding. Negative for difficulty urinating, pelvic pain and vaginal pain. Objective Visit Vitals BP 132/88 (BP Location: Right arm, Patient Position: Sitting, BP Cuff Size: Adult) Pulse 87 Temp 97.9 ??F (36.6 ??C) (Temporal) Resp 18 Body mass index is 33.83 kg/m??. Physical Exam Constitutional: Appearance: Normal appearance. Cardiovascular: Rate and Rhythm: Normal rate and regular rhythm. Heart sounds: Normal heart sounds. Pulmonary: Effort: Pulmonary effort is normal. Breath sounds: Normal breath sounds. Abdominal: General: Abdomen is flat. Palpations: Abdomen is soft. There is no mass. Tenderness: There is no abdominal tenderness. Neurological: General: No focal deficit present. Mental Status: She is alert. Psychiatric: Behavior: Behavior normal. Problem List Items Addressed This Visit Abnormal vaginal bleeding - Primary (a set of twins), irregular periods x1.5 yrs and amenorrhea the last 5 months. Heavy vaginal bleeding x2 days. Not currently established with SOCIAL STAFF WORKER. Abdominal exam benign. -ordered CBC, TSH, iron panel, and BMP. -ordered transvaginal US -referred to SOCIAL STAFF WORKER -prescribed medroxyPROGESTERone 5 mg, TID x5days Relevant Medications medroxyPROGESTERone (Provera) 5 MG tablet Other Relevant Orders CBC auto differential TSH with Reflex to Free T4 Iron And Total Iron Binding Capacity Ferritin US Pelvis Transvaginal Basic Metabolic Panel Referral to Obstetrics / Gynecology -No evidence of acute disease process. Etiology unknown. Symptoms moderate. Hemodynamically stable. -Ordered labs, US and referred to SOCIAL STAFF WORKER. -ER precautions discussed. -Seek medical attention for worsening symptoms. I, Akash Donohue, am serving as a scribe to document services personally performed by Dr. Green, based on the patient's response to questions by provider and providers statements to me. documented in this encounter Miscellaneous Notes * Assessment & Plan Note - Akash Donohue - 08/13/2024 9:46 AM ESTAssociated Problem(s): Abnormal vaginal bleeding (a set of twins), irregular periods x1.5 yrs and amenorrhea the last 5 months. Heavy vaginal bleeding x2 days. Not currently established with SOCIAL STAFF WORKER. Abdominal exam benign. -ordered CBC, TSH, iron panel, and BMP. -ordered transvaginal US -referred to SOCIAL STAFF WORKER -prescribed medroxyPROGESTERone 5 mg, TID x5days documented in this encounter Plan of Treatment Upcoming Encounters Date Type Department Care Team (Late st Contact Info) Description 09/15/2024 11:15 AM EDT Office Visit [facility] [address] [place] [phone] Jamila Robledo MD [address] [place] [phone] 09/16/2024 9:30 AM EDT Procedure Visit [facility] [address] [place] [phone] Jamila Robledo MD [address] [place] [address] Scheduled Orders Name Type Priority Associated Diagnoses Orde r Schedule US Pelvis Transvaginal Imaging Routine Abnormal vaginal bleeding Expected: 08/13/2024, Expires: 08/13/2025 Scheduled Referrals Name Type Priority Associated Diagnoses Order Schedule Referral to Obstetrics / Gynecology Outpatient Referral Routine Abnormal vaginal bleeding Expected: 08/13/2024 (Approximate), Expires: 08/13/2025 documented as of this encounter Procedures Procedure Name Priority Date/Time Associated Diagnosis Comments TSH W/REFLEX TO FT4 Routine 08/13/2024 1 0:02 AM EST Abnormal vaginal bleeding CBC WITH AUTO DIFFERENTIAL Routine 08/13/2024 10:02 AM EST Abnormal vaginal bleeding IRON AND TOTAL IRON BINDING CAPACITY Routine 08/13/2024 10:02 AM EST Abnormal vaginal bleeding FERRITIN Routine 08/13/2024 10:02 AM EST Abnormal vaginal bleeding BASIC METABOLIC PANEL Routine 08/13/2024 10:02 AM EST Abnormal vaginal bleeding documented in this encounter Results * (ABNORMAL) Basic Metabolic Panel (08/13/2024 10:02 AM EST) Sodium 141 135 - 145 mmol/L [facility] Potassium 3.2(L) 3.3 - 5.1 mmol/L [facility] Chloride 104 96 - 108 mmol/L [facility] Carbon Dioxide 29 22 - 29 mmol/L [facility] Anion Gap 11(L) 12 - 20 [facility] Urea Nitrogen (BUN) 14 9 - 16 mg/dL [facility] Creatinine, Serum 0.53 0.5 - 1.4 mg/dL [facility] Estimated Glomerular Filt Rate >60 [facility] Comment:Chronic Kidney Disea se: Estimated GFR < 60 mL/min/1.86s1Drfges Kidney Disease: Estimated GFR < 15 mL/min/1.73m2 Glucose 114 60 - 115 mg/dL [facility] Calcium 8.8 8.4 - 10.2 mg/dL [facility] Blood Venous blood specimen / Unknown 08/13/2024 10:02 AM EST 08/13/2024 11:08 AM EST us Aide Bishop MD LAB BLOOD ORDERABLES Final Result [facility] [address] [place] [phone] * Ferritin (08/13/2024 10:02 AM EST) Ferritin 155 10 - 250 ng/mL [facility] Blood Venous blood specimen / Unknown 08/13/2024 10:02 AM EST 08/13/2024 11:08 AM EST Aide Bishop MD LAB BLOOD ORDERABLES Final Result Performing Organization Address [facility] Co de Phone Number [facility] [address] [place] [phone] * Iron And Total Iron Binding Capacity (08/13/2024 10:02 AM EST) Pathologist [facility] Iron 99 30 - 160 mcg/dL [facility] Total Iron Binding Capacity 314 228 - 428 mcg/dL [facility] Percent Iron Saturation 32 15 - 50 % [facility] Unsaturated Iron Binding 215 ug/dL [facility] Blood Venous blood specimen / Unknown 08/13/2024 10:02 AM EST 08/13/2024 11:08 AM EST Aide Bishop MD LAB BLOOD ORDERABLES Final Result Performing Organization Address [facility] Co de Phone Number [facility] [address] [place] [phone] * TSH with Reflex to Free T4 (08/13/2024 10:02 AM EST) [facility] TSH reflex Free T4 0.63 0.32 - 4.0 uIU/mL [facility] Blood 08/13/2024 10:0 2 AM EST 08/13/2024 11:08 AM EST Aide Bishop MD LAB BLOOD ORDERABLES Final Result Performing Organization Address [facility] Co de Phone Number [facility] [address] [place] [address] [phone] * (ABNORMAL) CBC auto differential (08/13/2024 10:02 AM EST) [facility] White Blood Count 4.9 4.8 - 10.8 X10*3/uL [facility] Red Blood Count 5.00 4.20 - 5.50 X10*6/uL [facility] Hemoglobin 14.3 12.0 - 16.0 g/dl [facility] Hematocrit 42.4 37.0 - 47.0 % [facility] Mean Corpuscular Volume 84.8 80.0 - 98.0 fL [facility] Mean Corpuscular Hemoglobin 28.6 27.0 - 33.0 pg [facility] Mean Corpuscular HGB Conc 33.7 31.0 - 35.0 g/dl [facility] Red Cell Distribution Width 13.7 11.0 - 16.0 % [facility] Platelet Count 240 160 - 400 X10*3/uL [facility] Mean Platelet Volume 10.1 9.4 - 12.3 fL [facility] Neutrophils Percent Auto 47.6 45 - 73 % [facility] Imm Gran Pct Auto 0.2 0.0 - 0.4 % [facility] Lymphocytes Percent Auto 33.1 20 - 40 % [facility] Monocytes Percent Auto 9.9 2 - 11 % [facility] Eosinophils Percent Auto 8.2(H) 0 - 4 % [facility] Basophils Percent Auto 1.0 0 - 2 % [facility] NRBC Pct Auto 0.0 0.0 - 0.2 /100WBC [facility] Neutrophils Absolute Auto 2.3 2.0 - 8.3 x10*3/uL [facility] Imm Gran Abs Auto 0.01 0.00 - 0.03 X10*3/uL [facility] Lymphocytes Absolute Auto 1.6 1.2 - 4.9 X10*3/uL [facility] Monocytes Absolute Auto 0.5 0.1 - 1.2 X10*3/uL [facility] Eosinophils Absolute Auto 0.4 0.0 - 0.4 X10*3/uL [facility] Basophils Absolute Auto 0.1 0.0 - 0.2 X10*3/uL [facility] NRBC Abs Auto 0.000 0.0 - 0.012 X10*3/uL [facility] Blood Venous blood specimen / Unknown 08/13/2024 10:02 AM EST 08/13/2024 11:08 AM EST us Aide Bishop MD LAB BLOOD ORDERABLES Final Result [facility] [address] [place] [phone] documented in this encounter Visit Diagnoses Diagnosis Abnormal vaginal bleeding- Primary Other specified noninflammatory disorder of vagina documented in this encounter Additional Health Concerns Assessment Noted Time PHQ-9 Depression Total Score: 0 02/06/20 24 2:56 PM EDT documented as of this encounter Care Teams Children'S Service Worker Relationship Specialty Start Date End Date Jamila Robledo MD [address] [place] [phone] PCP - General Family Medicine 05/02/19 documented as of this encounter
--- OUTSIDE RECORDS SUMMARY | 2024-08-13 11:59 | XMS_ITS | Encounter Summary ---
Author Organization [employer] Address [address] [facility] 7t [place] [address] Care Team Providers Care Barrel Racer Name Role Phone Jamila Robledo MD Primary Care Provide r Reason for Visit * Reason Onset Date Comments Nurse Triage 08/12/2024 Encounter Details Date Type Department Care Team ([facility] Contact Info) Description 08/12/2024 Telephone [facility] [address] [place], [place] [phone] Jamila Robledo MD [address] [place] [address] Nurse Triage Social History Tobacco Use Types [...] t he electric, gas, oil or water [employer] threatened to shut off services in your [...] encounter Miscellaneous Notes * Telephone Encounter - Ebony Durham RN - 08/12/2024 1:32 PM EST Call returned to Rohini Conner to triage below. Reports last menses was 5 months ago. Per pt last menses was normal. Reports onset of bleeding last night. Changing every 2 hours. No large blood clots.Having mild cramping. No severe constant pain. No dizziness. Pt also reporting ALEXANDER sx. Pt advised of disposition, agrees to seek WIC> Reviewed WIC operating hours and that wait times vary. Reviewed home care advise, ER precautions and reasons to call back. Protocol Used: Vaginal Bleeding - Abnormal (Adult) Protocol-Based Disposition: See in Office or Video Visit within 2 Weeks Future Appointments Date Time Provider Department Center 09/15/2024 11:15 AM Jamila Beebe MD MEDICINE [facility] 09/16/2024 9:30 AM Jamila Beebe MD [facility] Insurance verified as active per Real Time Eligibility in [facility]. Positive Triage Question: * Age > 39 years with irregular or excessive bleeding * All higher-acuity triage questions were negative Care Advice Discussed: * Iron and Anemia * Reasons To Call Back - Severe abdomen pain or lightheadedness occurs - Bleeding worsens - You become worse * Telephone Encounter - Alberto Loco - 08/12/2024 1:24 PM EST Symptom: Vaginal Bleeding - Not Outcome: Talk to a nurse or provider within 15 minutes Reason: Heavy bleeding The caller accepted this outcome. documented in this encounter Plan of Treatment Upcoming Encounters Date Type Department Care Team (Late st Contact Info) Description 09/15/2024 11:15 AM EDT Office Visit [facility] [address] [place] [phone] Jamila Robledo MD [address] [place] [address] [phone] 09/16/2024 9:30 AM EDT Procedure Visit [facility] [address] [place] [phone] Jamila Robledo MD [address] [place] [address] [phone] documented as of this encounter Visit Diagnoses Not on filedocumented in this encounter Additional Health Concerns Assessment Noted Time PHQ-9 Depression Total Score: 0 02/06/20 24 2:56 PM EDT documented as of this encounter Care Teams Barrel Racer Relationship Specialty Start Date End Date Jamila Robledo MD [address] [place] [address] [phone] PCP - General Family Medicine 05/02/19 documented as of this encounter
--- OUTSIDE RECORDS SUMMARY | 2024-08-13 11:59 | XMS_ITS | Encounter Summary ---
Author Organization [employer] Address [address] [facility] 7t [place] [address] Care Team Providers Care Production Welder Name Role Phone Jamila Robledo MD Primary Care Provide r Reason for Visit * Reason Onset Date Comments Med Change Request 03/11/2024 Encounter Details Date Type Department Care Team ([facility] Contact Info) Description 03/11/2024 Telephone [facility]INE [address] [place] [address] Jamila Robledo MD [address] [place] [address] Med Change Request Social History Tobacco Use [...] the past 12 months, has t he [employer], gas, oil or water [employer] threatened to shut off services in your [...] Description 09/15/2024 11:15 AM EDT Office Visit [facility]INE [address] [place] [address] [phone] Jamila Robledo MD [address] [place] [address] [phone] 09/16/2024 9:30 AM EDT Procedure Visit [facility] [address] [place] [address] [phone] Jamila Robledo MD [address] [place] [address] [phone] documented as of this encounter Visit Diagnoses Not on filedocumented in this encounter Additional Health Concerns Assessment Noted Time PHQ-9 Depression Total Score: 0 02/06/20 24 2:56 PM EDT documented as of this encounter Care Teams Production Welder Relationship Specialty Start Date End Date Jamila Robledo MD [address] [place] [phone] PCP - General Family Medicine 05/02/19 documented as of this encounter
--- OUTSIDE RECORDS SUMMARY | 2024-08-13 11:59 | XMS_ITS | Encounter Summary ---
Author Organization [employer] Address [address] [facility] 7t [place] [address] Care Team Providers Care Equine Manager Name Role Phone Jamila Robledo MD Primary Care Provide r Reason for Visit * Reason Comments Med Change Request Encounter Details Date Type Department Care Team ([facility] Contact Info) Description 06/28/2023 Refill [facility] [address] [place], [place] [phone] Ruth Costello FNP [address] [place] [address] Upper back pain on left side Social [...] Description 09/15/2024 11:15 AM EDT Office Visit [facility] [address] [place] [phone] Jamila Robledo MD [address] [place] [address] [phone] 09/16/2024 9:30 AM EDT Procedure Visit [facility] [address] [place] [phone] Jamila Robledo MD [address] [place] [address] [phone] documented as of this encounter Visit Diagnoses Diagnosis Upper back pain on left side documented in this encounter Additional Health Concerns Assessment Noted Time PHQ-9 Depression Total Score: 9 11/04/19 23 2:36 PM EDT documented as of this encounter Care Teams Equine Manager Relationship Specialty Start Date End Date Jamila Robledo MD [address] [place] [address] [phone] PCP - General Family Medicine 05/02/19 documented as of this encounter
--- OUTSIDE RECORDS SUMMARY | 2024-08-13 11:59 | XMS_ITS | Encounter Summary ---
Author Organization [employer] Address [address] [facility] 7t [place] [address] Care Team Providers Care Center Maker Hand Name Role Phone Jamila Robledo MD Primary Care Provide r Encounter Details Date Type Department Care Team ([facility] Contact Info) Description 03/18/2024 Orders Only [facility]INE [address] [place], [place] [phone] Jamila Robledo MD [address] [place], [place] [phone] Social History Tobacco Use Types Packs/Day Years [...] the past 12 months, has t he [employer], gas, oil or water [employer] threatened to shut off services in your [...] Description 09/15/2024 11:15 AM EDT Office Visit [facility]INE [address] [place] [phone] Jamila Robledo MD [address] [place] [phone] 09/16/2024 9:30 AM EDT Procedure Visit [facility] [address] [place] [address] [phone] Jamila Robledo MD [address] [place] [phone] documented as of this encounter Visit Diagnoses Not on filedocumented in this encounter Additional Health Concerns Assessment Noted Time PHQ-9 Depression Total Score: 0 02/06/20 24 2:56 PM EDT documented as of this encounter Care Teams Center Maker Hand Relationship Specialty Start Date End Date Jamila Robledo MD [address] [place] [address] [phone] PCP - General Family Medicine 05/02/19 documented as of this encounter
--- OUTSIDE RECORDS SUMMARY | 2024-08-13 11:59 | XMS_ITS | Clinical Summary ---
Author Organization [employer] Address [address] [place] [address] [address] [place] [address] Care Team Providers Care Manager Video Name Role Phone Jamila Robledo MD Primary Care Provide r Allergies No known active allergies Medications cetirizine (ZyrTEC) 10 MG tabletIndication s:Mild persistent asthma without complication Take 1 tablet by mouth every day 90 tablet 2 Active cholecalciferol (Vitamin D3) 25 MCG (1000 UT) tablet 2 Active dicyclomine (Bentyl) 20 MG tablet Take 1 tablet by mouth every 12 (twelve) hours. 1 Active [facility] Gas Relief Ultra Strength 180 MG capsule TAKE 1 CAPSULE BY MOUTH EVERY DAY WITH MEALS 2 Active naproxen (Naprosyn) 500 MG tabletIndication s:History of menorrhagia TAKE 1 TABLET BY MOUTH EVERY MORNING AND 1 TABLET BY MOUTH AT BEDTIME NEEDED FOR MILD PAIN 60 tablet 1 3 Active dilTIAZem CD (Cardizem CD) 120 MG 24 hr capsule TAKE 1 CAPSULE BY MOUTH EVERY DAY FOR 90 DAYS 3 Active metoprolol succinate XL (Toprol-XL) 25 MG 24 hr tablet TAKE 1/2 TABLET BY MOUTH EVERY DAY 90 ORALLY ONCE A DAY 30 DAYS 3 Active Diclofenac Sodium 1 % gelIndications:U pper back pain on left side APPLY 2 GRAMS TOPICALLY IF NEEDED IN THE MORNING, AT NOON, AND AT BEDTIME (PAIN). 300 g 4 Active albuterol (2.5 MG/3ML) 0.083% nebulizer solution Take 3 mL (2.5 mg) by nebulization every 6 (six) hours if needed for wheezing. 75 mL 11 4 Active LORazepam (Ativan) 1 MG tabletIndication s:Anxiety TAKE 1/2 TO 1 TABLET BY MOUTH 3 TIMES DAILY NEEDED. 15 tablet 4 Active albuterol 108 (90 Base) MCG/ACT inhalerIndicatio ns:Mild persistent asthma without complication INHALE 2 PUFFS BY MOUTH EVERY 4 TO 6 HOURS NEEDED 18 g 1 4 Active triamcinolone (Kenalog) 0.1 % creamIndications :Rash Apply topically if needed in the morning and at bedtime (pain and swelling). 30 g 2 4 Active potassium chloride CR (Klor-Con M20) 20 MEQ ER tabletIndication s:Hypokalemia Take 1 tablet (20 mEq) by mouth 3 times daily. Do not crush or chew. 9 tablet 4 025 Active hydroCHLOROthiaz chana (HYDRODiuril) 25 MG tabletIndication s:Hypokalemia Take 1 tablet (25 mg) by mouth Once per day. 30 tablet 11 4 025 Active fluticasone (Flonase) 50 MCG/ACT nasal sprayIndications :Acute non-recurrent frontal sinusitis SPRAY 2 SPRAYS INTO EACH NOSTRIL EVERY DAY NEEDED 48 mL 1 4 Active fluticasone furoate (Arnuity Ellipta) 200 MCG/ACT inhaler TAKE 1 PUFF BY MOUTH ONCE A DAY 30 each 3 4 Active FREESTYLE LITE test stripIndications :Prediabetes Use to test blood sugar 2 times daily 100 each 12 4 025 Active Blood Glucose Monitoring Suppl (FreeStyle Henriette Lite) w/Device kitIndications:P rediabetes Use to test blood sugar 2 times daily 1 kit 4 Active Alcohol Swabs 70 % padsIndications: Prediabetes Use to test blood sugar 2 times daily 100 each 2 4 Active cetirizine (ZyrTEC) 10 MG tabletIndication s:Seasonal allergic rhinitis, unspecified trigger Take 1 tablet (10 mg) by mouth Once per day. 30 tablet 11 4 025 Active sharps container 1 each if needed (For lancet disposal after checking blood sugar twice daily). 1 each 11 4 Active famotidine (Pepcid) 20 MG tabletIndication s:Epigastric pain TAKE 1 TABLET BY MOUTH TWICE A DAY 180 tablet 3 4 Active FreeStyle lancetsIndicatio ns:Prediabetes USE TO TEST BLOOD SUGAR 2 TIMES DAILY 100 each 11 4 Active lisinopril 10 MG tabletIndication s:Chronic pansinusitis TAKE 1 TABLET BY MOUTH EVERY DAY IN THE MORNING 90 tablet 1 5 Active montelukast (Singulair) 10 MG tabletIndication s:Mild persistent asthma without complication TAKE 1 TABLET BY MOUTH EVERY DAY IN THE EVENING 90 tablet 1 5 Active omeprazole (PriLOSEC) [address] capsuleIndicatio ns:Gastroesophag eal reflux disease, unspecified whether esophagitis present TAKE 1 CAPSULE (20 MG) BY MOUTH BEFORE BREAKFAST 90 capsule 1 5 Active PARoxetine (Paxil) 10 MG tablet TAKE 1 TABLET BY MOUTH EVERY DAY 90 tablet 2 5 Active baclofen (Lioresal) 10 MG tablet TAKE 1 TABLET BY MOUTH THREE TIMES A DAY 90 tablet 5 Active traZODone (Desyrel) 50 MG tabletIndication s:Psychophysiolo gical insomnia TAKE 1 TABLET BY MOUTH EVERYDAY AT BEDTIME 90 tablet 1 5 Active medroxyPROGESTER one (Provera) 5 MG tabletIndication s:Abnormal vaginal bleeding Take 1 tablet (5 mg) by mouth 3 times daily for 5 days. 15 tablet 5 025 Active Active Problems Problem Noted Date Diagnosed Date Abnormal vaginal bleeding 08/13/2024 Assessment & Plan (08/13/2024 9:50 AM EST): (a set of twins), irregular periods x1.5 yrs and amenorrhea the last 5 months. Heavy vaginal bleeding x2 days. Not currently established with TAKE AWAY ATTENDANT. Abdominal exam benign. -ordered CBC, TSH, iron panel, and BMP. -ordered transvaginal US -referred to TAKE AWAY ATTENDANT -prescribed medroxyPROGESTERone 5 mg, TID x5days Right hip pain 06/17/2024 Trochanteric bursitis of [...] Encounters Date Type Department Care Team Description 08/13/2024 9:20 AM EST Office Visit [facility] [address] [place] [phone] Aide Bishop MD Abnormal vaginal bleeding (Primary Dx) 08/12/2024 Telephone [facility] [address] [place] [address] [phone] Jamila Robledo MD Nurse Triage 07/10/2024 Refill [facility] [address] [place] [address] Jamila Robledo MD Chronic pansinusitis; Mild persistent asthma without complication; Gastroesophageal reflux disease, unspecified whether esophagitis present; Psychophysiological insomnia 06/17/2024 12:30 PM EST Telemedicine [facility] [address] [place] [address] [phone] Jamila Robledo MD Obesity (BMI 30-39.9) (Primary Dx); Prediabetes; Right hip pain; Trochanteric bursitis of right hip 06/17/2024 Travel 05/30/2024 Refill [facility] [address] [place] [address] [phone] Jamila Robledo MD Prediabetes from Last 3 Months Immunizations Name Administration [...] (191 lb) 08/13/2024 9:25 AM EST Height 160 cm (5' 3 ) 04/04/2024 11:05 AM EDT Body Mass Index 33.83 04/04/2024 11:05 AM EDT Plan of Treatment Upcoming Encounters Date Type Department Care Team (Late st Contact Info) Description 09/15/2024 11:15 AM EDT Office Visit [facility] [address] [place] [address] [phone] Jamila Robledo MD [address] [place], [place] [phone] 09/16/2024 9:30 AM EDT Procedure Visit [facility] [address] [place], [place] [phone] Jamila Robledo MD [address] [place], [place] [phone] Health Maintenance Due Date Last Done Comments [...] 02/05/2025 02/06/2024 Depression Screening 02/05/2025 02/06/2024, 02/06/20 24 Diabetes: Hemoglobin A1C 03/11/202503/11/ 024, 01/08/2024, 10/07/2020 Tobacco Screening 04/04/2025 04/04/2024 [...] Procedure Name Priority Date/Time Associated Diagnosis Comments BASIC METABOLIC PANEL Routine 08/13/2024 10:02 AM EST Abnormal vaginal bleeding FERRITIN Routine 08/13/2024 10:02 AM EST Abnormal vaginal bleeding IRON AND TOTAL IRON BINDING CAPACITY Routine 08/13/2024 10:02 AM EST Abnormal vaginal bleeding TSH W/REFLEX TO FT4 Routine 08/13/2024 1 0:02 AM EST Abnormal vaginal bleeding CBC WITH AUTO DIFFERENTIAL Routine 08/13/2024 10:02 AM EST Abnormal vaginal bleeding HEPATITIS C ANTIBODY Routine 04/03/2024 11:38 AM EDT POCT GLYCATED HEMOGLOBIN, TOTAL Routine 03/11/2024 5:49 PM EDT Prediabetes LIPID PANEL, STANDARD Routine 01/08/2024 12:04 PM EDT Essential hypertension MAMMOGRAM GENERIC Routine 05/01/2022 11: 34 AM EST ZZZ HISTORICAL HPV MRNA E6/E7 Routine 08/28/2019 10:30 AM EDT from Last 3 Months or Most Recently Relevant to Health Maintenance Results * TSH with Reflex to Free T4 (08/13/2024 10:02 AM EST) TSH reflex Free T4 0.63 0.32 - 4.0 uIU/mL [facility] Blood 08/13/2024 10:0 2 AM EST 08/13/2024 11:08 AM EST us Aide Bishop MD LAB BLOOD ORDERABLES Final Result [facility] [address] [place] [phone] * (ABNORMAL) CBC auto differential (08/13/2024 10:02 AM EST) White Blood Count 4.9 4.8 - 10.8 X10*3/uL [facility] Red Blood Count 5.00 4.20 - 5.50 X10*6/uL [facility] Hemoglobin 14.3 12.0 - 16.0 g/dl [facility] Hematocrit 42.4 37.0 - 47.0 % [facility] Mean Corpuscular Volume 84.8 80.0 - 98.0 fL [facility] Mean Corpuscular Hemoglobin 28.6 27.0 - 33.0 pg [facility] Mean Corpuscular HGB Conc 33.7 31.0 - 35.0 g/dl [facility] Red Cell Distribution Width 13.7 11.0 - 16.0 % [facility] Platelet Count 240 160 - 400 X10*3/uL [facility] Mean Platelet Volume 10.1 9.4 - 12.3 fL [facility] Neutrophils Percent Auto 47.6 45 - 73 % [facility] Imm Gran Pct Auto 0.2 0.0 - 0.4 % [facility] Lymphocytes Percent Auto 33.1 20 - 40 % [facility] Monocytes Percent Auto 9.9 2 - 11 % [facility] Eosinophils Percent Auto 8.2(H) 0 - 4 % [facility] Basophils Percent Auto 1.0 0 - 2 % [facility] NRBC Pct Auto 0.0 0.0 - 0.2 /100WBC [facility] Neutrophils Absolute Auto 2.3 2.0 - 8.3 x10*3/uL [facility] Imm Gran Abs Auto 0.01 0.00 - 0.03 X10*3/uL [facility] Lymphocytes Absolute Auto 1.6 1.2 - 4.9 X10*3/uL [facility] Monocytes Absolute Auto 0.5 0.1 - 1.2 X10*3/uL [facility] Eosinophils Absolute Auto 0.4 0.0 - 0.4 X10*3/uL [facility] Basophils Absolute Auto 0.1 0.0 - 0.2 X10*3/uL [facility] NRBC Abs Auto 0.000 0.0 - 0.012 X10*3/uL [facility] Blood Venous blood specimen / Unknown 08/13/2024 10:02 AM EST 08/13/2024 11:08 AM EST us Aide Bishop MD LAB BLOOD ORDERABLES Final Result [facility] [address] [place] [phone] * Iron And Total Iron Binding Capacity (08/13/2024 10:02 AM EST) Iron 99 30 - 160 mcg/dL [facility] Total Iron Binding Capacity 314 228 - 428 mcg/dL [facility] Percent Iron Saturation 32 15 - 50 % [facility] Unsaturated Iron Binding 215 ug/dL [facility] Blood Venous blood specimen / Unknown 08/13/2024 10:02 AM EST 08/13/2024 11:08 AM EST Aide Bishop MD LAB BLOOD ORDERABLES Final Result Performing Organization Address City/[facility]/ZIP Co de Phone Number [facility] [address] [place] [phone] * Ferritin (08/13/2024 10:02 AM EST) Pathologist [facility] Ferritin 155 10 - 250 ng/mL [facility] Blood Venous blood specimen / Unknown 08/13/2024 10:02 AM EST 08/13/2024 11:08 AM EST Aide Bishop MD LAB BLOOD ORDERABLES Final Result Performing Organization Address [facility] Co de Phone Number [facility] [address] [place] [address] [phone] * (ABNORMAL) Basic Metabolic Panel (08/13/2024 10:02 AM EST) [facility] Sodium 141 135 - 145 mmol/L [facility] Potassium 3.2(L) 3.3 - 5.1 mmol/L [facility] Chloride 104 96 - 108 mmol/L [facility] Carbon Dioxide 29 22 - 29 mmol/L [facility] Anion Gap 11(L) 12 - 20 [facility] Urea Nitrogen (BUN) 14 9 - 16 mg/dL [facility] Creatinine, Serum 0.53 0.5 - 1.4 mg/dL [facility] Estimated Glomerular Filt Rate >60 [facility] Comment:Chronic Kidney Disea se: Estimated GFR < 60 mL/min/[id number] Kidney Disease: Estimated GFR < 15 mL/min/1.73m2 Glucose 114 60 - 115 mg/dL [facility] Calcium 8.8 8.4 - 10.2 mg/dL [facility] Blood Venous blood specimen / Unknown 08/13/2024 10:02 AM EST 08/13/2024 11:08 AM EST Aide Bishop MD LAB BLOOD ORDERABLES Final Result Performing Organization Address [facility]/ZIP Co de Phone Number [facility] [address] [place] [address] [phone] * Hepatitis C Ab (04/03/2024 11:38 AM EDT) Pathologist [facility] Hepatitis C Antibody Nonreactive Nonreactive [facility] Comment:Antibodies to HCV no t detected; does not exclude early acuteHCV infection. 04/03/2024 11:3 8 AM EDT 04/03/2024 11:48 AM EDT Generic External Data Provider LAB BLOOD ORDERAB LES Final Result Performing Organization Address [facility]/ZIP Co de Phone Number [facility] [address] [place] [address] [phone] * (ABNORMAL) POCT HGB A1C (03/11/2024 5:49 PM EDT) Pathologist [facility] Hemoglobin A1C 6.3(A) 4.0 - 6.0 % QC Media Lot # [id number] Lot# Expiration Date [id number] Blood 03/11/2024 5:49 PM EDT Wicho Desai MD POINT OF CARE TEST ENTER/EDIT OR DERABLES Final Result * (ABNORMAL) Lipid Panel, Standard (01/08/2024 12:04 PM EDT) Triglycerides 143 <150 mg/dL [facility] Comment:Desirable Triglyceri de: less than 150 mg/dLBorderline High Triglyceride 150-199 mg/dLHigh Triglyceride: 200-499 mg/dLVery High Triglyceride: greater than or equal to 5OO mg/dL Cholesterol 187 <200 mg/dL [facility] Comment:Desirable Cholestero l: less than 200 mg/dLBorderline High Cholesterol: 200-239 mg/dLHigh Cholesterol: greater than 239 mg/dL LDL Cholesterol Calculated 119(H) <100 mg/dL [facility] Comment:Desirable LDL: less than 100 mg/dLNear Optimal/Above Optimal LDL: 110- 129 mg/dLBorderline High LDL: 130-159 mg/dLHigh LDL: 160-189 mg/dLVery High LDL: greater than or equal to 190 mg/dL HDL Cholesterol 40(L) >40 mg/dL [facility] Comment:Desirable HDL: great er than 40 mg/dL Note: This HDL assay may give artificially low results in patients with liver disease. Blood Venous blood specimen / Unknown 01/08/2024 12:04 PM EDT 01/08/2024 1:04 PM EDT us Jamila Beebe MD LAB BLOOD ORDERABLES Final Result [facility] [address] [place] [phone] * Mammography Report 1 (05/01/2022 11:34 AM EST) Anatomical Region Laterality Modality Breast Bilateral Mammography 05/01/2022 11:3 4 AM EST Narrative 05/01/2022 12:16 PM EST Refer to the Notes tab for result details [facility] Procedure: Mammography Report 1 Procedure Note ProviderArmen MD - 09/10/2022 Refer to the Notes tab for result details [facility] Procedure: Mammography Report 1 us Kimberley Tavares [place] DIRECTOR IMG BI PROCEDURES Final Result * HPV mRNA E6/E7 (08/28/2019 10:30 AM EDT) HPV mRNA E6/E7 Not Detected NOT DETECTED [facility] Comment: This test was performed using the APTIMA(R) HPV Assay ([employer] This assay detects E6/E7 viral messenger RNA (mRNA) from 14 high-risk HPV types (16,18,31,33,35,39,45,51, 52,56,58,59,66,68). For additional information please refer to: http://education.[employer]/faq/WUE992w6 (This link is being provided for informational/ educational purposes only.) The analytical performance characteristics of this assay have been determined by [facility] [place], [place]. The modifications have not been cleared or approved by the FDA. This assay has been validated pursuant to the CLIA regulations and is used for clinical purposes. Test Performed by [facility], [facility] [place], [address] [address], [place] Tam Reeder M.D., Ph.D., Director of Laboratories , CLIA [id number] Please note: ??Effective 02/28/2016, HPV testing will be performed using [employer]'s APTIMA test which targets mRNA. Detecting mRNA instead of DNA, as in older methods, offers significant improvements in specificity. 08/28/2019 10:3 0 AM EDT Jamila Beebe MD HISTORICAL/NON ORDERA BLE LABS Final Result [facility] [address] from Last 3 Months or Most Recently Relevant to Health Maintenance Insurance [facility] Care Teams Manager Video Relationship Specialty Start Date End Date Jamila Robeldo MD [address] [place] [phone] PCP - General Family Medicine 05/02/19
--- OUTSIDE RECORDS SUMMARY | 2024-08-13 11:59 | XMS_ITS | Encounter Summary ---
Author Organization [employer] Address [address] [facility] [address] [place] [address] Care Team Providers Care Sterile Processing Technician Name Role Phone Jamila Robledo MD Primary Care Provide r Reason for Visit * Reason Onset Date Comments Nurse Triage 02/27/2024 Encounter Details Date Type Department Care Team ([facility] Contact Info) Description 02/27/2024 Telephone [facility] [address], [place] [phone] Jamila Robledo MD [address] [place] [phone] Nurse Triage Social History Tobacco Use Types [...] the past 12 months, has t he [facility], gas, oil or water [employer] threatened to shut off services in your [...] to check this. Advised to come to [facility] open till 8pm today and th, fri, 830a-4p. Pt agrees with this disposition and will come to [facility] probably in the morning. Insurance [...] Description 09/15/2024 11:15 AM EDT Office Visit [facility] [address] [place] [address] [phone] Jamila Robledo MD [address] [place] [address] [phone] 09/16/2024 9:30 AM EDT Procedure Visit [facility] [address] [place] [address] [phone] Jamila Robledo MD [address] [place] [address] [phone] documented as of this encounter Visit Diagnoses Not on filedocumented in this encounter Additional Health Concerns Assessment Noted Time PHQ-9 Depression Total Score: 0 02/06/20 24 2:56 PM EDT documented as of this encounter Care Teams Sterile Processing Technician Relationship Specialty Start Date End Date Jamila Robledo MD [address] [place] [address] [phone] PCP - General Family Medicine 05/02/19 documented as of this encounter
--- OUTSIDE RECORDS SUMMARY | 2024-08-13 11:59 | XMS_ITS | Data Portability ---
Author Organization [employer] Address [address] [place] [phone] Care Team Providers Care Logistics Lead Name Role Phone [facility] Referring Provider [facility] Referring Provider [phone] Assessment Encounter Date Assessment Date Assessment LastModified by Organization Details LastModified Time 11/14/2022 11/14/2022 As noted, we were called to see this patient regarding concerns of sinus congestion. Evaluation in the field was performed by my booker colleague, as noted above, I provided real-time [...] despite meds, vision changes, altered mental status. [email or web address] Not available 11/14/2022 15:14:51 Plan of Treatment Reminders Order Date Submit Date Provider Last Modified By Organization Details Last Modified Time Details Appointments None recorded. Lab None recorded. Referral None recorded. Procedures None recorded. Surgeries None recorded. Imaging None recorded. Medication Orders Paxlovid 300 mg (150 mg x 2)-100 mg tablets in a dose pack 2022 023 [facility] am98 [facility] #[id number], [address] [facility] [place], [address], 3 13:07:58 Patient TargetsNo targets recorded. Patient [...] 3 97 % 97 % 18 /min 93410.6 8 g 98.4 [degF] 83 /min 157.48 cm 134 mm[Hg] 82 mm[Hg] Not Available [employer] 3 13:02:00 Date Recorded Body temperature Body weight Oxygen saturation Oxygen saturation in Arterial blood by Pulse oximetry Respiratory rate Heart rate Systolic blood pressure Diastolic blood pressure Provider Name and Address Organization Details Last Updated DateTime 3 97.1 [degF] 20988.2 4 g 97 % 97 % 16 /min 76 /min 163 mm[Hg] 96 mm[Hg] Not Available [employer] 3 14:04:45 Date Recorded Body weight Body height Body temperature Oxygen saturation Oxygen saturation in Arterial blood by Pulse oximetry Heart rate Respiratory rate Systolic blood pressure Diastolic blood pressure Provider Name and Address Organization Details Last Updated DateTime 3 25977.6 4 g 157.48 cm 97.8 [degF] 95 % 95 % 61 /min 18 /min 124 mm[Hg] 80 mm[Hg] Not Available [employer] 3 11:16:46 Social History None recorded. Functional Status None recorded. Mental Status None recorded. Family History Nothing Reported. Medical History No medical history recorded. Gynecological HistoryNo gynecological history recorded. Obstetrics History GPAL:G 0 P 0 0 0 0 Past Encounters Encounter ID Performer Location Encounter Start Date Encounter Closed Date Diagnosis/Indication Diagnosis SNOMED-CT Code Diagnosis ICD10 Code Diagnosis Note [id number] Sneha Cintron MD [facility] [address] [place] [phone] 11/09/2022 14:04:34 11/10/2022 14:20:47 Acute bacterial sinusitis 80958595 J01.90 47 year old female, being evaluated [...] y changing to an alternativ e regimen. [id number] NEELAM ALVARADO MD Main - [facility] [address] [place] [phone] 11/14/2022 11:16:43 11/15/2022 09:34:22 Congestion of nasal sinus [id number] R09.81 [id number] Bam Luo MD Main - [facility] [address] [place] [phone] 05/06/2023 13:01:58 05/06/2023 16:22:04 COVID-19 [id number] U07.1 47yo woman presents with URI symptoms [...] levels expected to be safe. Acute COVID-19 [id number] U07.1 We discussed the benefit of Paxlovid to reduce the risk of hospitaliz ation and , and the potential downsides/ side effects, including dysgeusia, headache, COVID rebound, and the possibilit y of medication interactio ns despite my efforts to review medication s and deputy general counsel on discontinu ation. We discussed alternativ es, [...] Navarro Member ID Guarantor Name 11/09/2022 1 [facility] - DOS ON OR AFTER 2022 - DUAL ELIGIBLE - ASSISTED OPTIONS AND ONE CARE (MEDICARE REPLACEMENT/ADV ANTAGE - HMO) Rohini Conner [id number] Rohini Conner 11/14/2022 1 [facility] - DOS ON OR AFTER 2022 - DUAL ELIGIBLE - ASSISTED OPTIONS AND ONE CARE (MEDICARE REPLACEMENT/ADV ANTAGE - HMO) Rohini oCnner [id number] Rohini Conner 05/06/2023 1 [facility] - DOS ON OR AFTER 2022 - DUAL ELIGIBLE - ASSISTED OPTIONS AND ONE CARE (MEDICARE REPLACEMENT/ADV ANTAGE - HMO) Rohini Conner [id number] Rohini Conner Notes Date Note Type Note [...] process this visit. Sneha Cintron MD [address] [facility],[address], [place], [phone], [employer] 11/09/2022 14:09:36 11/14/2022 text/html CRC Nursing Assessment: Reason For Request: Follow up visit>Sinus infection, which has not gotten better. Chief Complaints: URI PMH: COPD/Asthma, Hypertension, Heart Disease Allergies: No Known Comments: [facility] was on [facility] amoxicillin and completed the course. Member continues to be congested, mild cough from being dry. Member has chills no fever but has pain and sinus pressure . Member has sob when sleeping and has to sleep upright Verified identity by .................. .................. .................. .................. .................. .................. .................. ............... Mailing Clerk Note From Racheal Singleton: Sent to a call for a pt requesting follow up due to sinus infection. SC8 arrives on scene, pt is alert and oriented, airway is patent. [facility] prescribed amoxicillin x 7 days for sinus [...] expresses Zertec D seems to be ineffective. [facility] suggests changing to Shi and offers to send script for Shi and Saline nasal spray. Pt declines stating she's tried Shi and has Saline nasal spray. Pt advised to follow up with PCP for further evaluation. [facility] sends follow up request to pt's care team. Red flags discussed. Pt has no further questions. .................. .................. .................. .................. .................. .................. .................. ............... Disposition: Fulfilled NEELAM ALVARADO MD [address] [place] [address],[address], [place], [address], [employer] 11/14/2022 15:15:16 05/06/2023 text/html HPI: I tested [...] .................. .................. .................. .................. .................. .................. ............... Mailing Clerk Note From Yosi Araujo: [facility] visit for [...] for symptoms with some improvement. Consulted with [facility] Dr. Luo who prescribed paxlovid for patients symptoms. Prescription sent to patients pharmacy. Patient education provided and encouraged to continue with home remedies as well. .................. .................. .................. .................. .................. .................. .................. ............... Disposition: Fulfilled Bam Luo MD [address] [facility],[address], [place], [address], [employer] 05/06/2023 13:08:00 OBGyn Episode No OBEpisode recorded.
--- OUTSIDE RECORDS SUMMARY | 2024-08-13 11:59 | XMS_ITS | Encounter Summary ---
Author Organization [employer] Address [address] [facility] 7t [place] [address] Care Team Providers Care Design Engineer Name Role Phone Jamila Robledo MD Primary Care Provide r Reason for Visit * Reason Comments Med Change Request Encounter Details Date Type Department Care Team ([facility] Contact Info) Description 07/17/2023 Refill [facility] [address] [place], [place] [phone] Ruth Costello FNP [address] [place] [address] Social History Tobacco Use Types Packs/Day Years [...] Description 09/15/2024 11:15 AM EDT Office Visit [facility] [address] [place] [phone] Jamila Robledo MD [address] [place] [address] [phone] 09/16/2024 9:30 AM EDT Procedure Visit [facility] [address] [place] [phone] Jamila Robledo MD [address] [place] [address] [phone] documented as of this encounter Visit Diagnoses Not on filedocumented in this encounter Additional Health Concerns Assessment Noted Time PHQ-9 Depression Total Score: 9 11/04/19 23 2:36 PM EDT documented as of this encounter Care Teams Design Engineer Relationship Specialty Start Date End Date Jamila Robledo MD [address] [place] [address] [phone] PCP - General Family Medicine 05/02/19 documented as of this encounter
--- OUTSIDE RECORDS SUMMARY | 2024-08-13 11:59 | XMS_ITS | Encounter Summary ---
Author Organization [employer] Address [address] [place] [address] [place] [address] Care Team Providers Care Vacuum Truck Driver Name Role Phone Jamila oRbledo MD Primary Care Provide r Reason for Visit * Reason Comments Med Refill Encounter Details Date Type Department Care Team (Late Contact Info) Description 01/19/2023 Refill [facility] [address] [place] [phone] Liza Matos FNP [address] [place] [address] [place] [address] Psychophysiological insomnia Social History Tobacco Use Types [...] 09/15/2024 11:15 AM EDT Office Visit [facility] [address] [place] [address] [phone] Jamila Robledo MD [address] [place], [place] [phone] 09/16/2024 9:30 AM EDT Procedure Visit [facility] [address] [place], [place] [phone] Jamila Robledo MD [address] [place] [address] [phone] documented as of this encounter Visit Diagnoses Diagnosis Psychophysiological insomnia Persistent disorder of initiating or maintaining sleep documented in this encounter Additional Health Concerns Assessment Noted Time PHQ-9 Depression Total Score: 9 11/04/19 23 2:36 PM EDT documented as of this encounter Care Teams Vacuum Truck Driver Relationship Specialty Start Date End Date Jamila Robledo MD [address] [place] [address] [phone] PCP - General Family Medicine 05/02/19 documented as of this encounter
--- OUTSIDE RECORDS SUMMARY | 2024-08-13 11:59 | XMS_ITS | Encounter Summary ---
Author Organization [employer] Address [address] [facility] 7t [place] [address] Care Team Providers Care Shade Matcher Name Role Phone Jamila Robledo MD Primary Care Provide r Reason for Visit * Reason Comments Med Refill Encounter Details Date Type Department Care Team ([facility] st Contact Info) Description 08/08/2023 Refill [facility] [address] [place], [place] [phone] Jamila Robledo MD [address] [place] [address] Psychophysiological insomnia Social History Tobacco Use Types [...] Description 09/15/2024 11:15 AM EDT Office Visit [facility] [address] [place] [phone] Jamila Robledo MD [address] [place] [phone] 09/16/2024 9:30 AM EDT Procedure Visit [facility] [address] [place] [phone] Jamila Robledo MD [address] [place], [place] [phone] documented as of this encounter Visit Diagnoses Diagnosis Psychophysiological insomnia Persistent disorder of initiating or maintaining sleep documented in this encounter Additional Health Concerns Assessment Noted Time PHQ-9 Depression Total Score: 9 11/04/19 23 2:36 PM EDT documented as of this encounter Care Teams Shade Matcher Relationship Specialty Start Date End Date Jamila Robledo MD [address] [place] [address] [phone] PCP - General Family Medicine 05/02/19 documented as of this encounter
== END 2024-08-13 10:00 | disposition home or self-care (01) ==
LOC: HO.HHCL 09:59
PROVIDERS: Visit Provider Family Medicine
DX: N93.9 Abnormal uterine and vaginal bleeding, unspecified (principal)
CPT/HCPCS: 36415; 80048; 82728; 83540; 84443; 85025

== ENCOUNTER 2024-08-18 12:23 | Emergency (ER) | payer OTHER, SELFPAY ==
--- NOTE | ~2024-08-18 | US_ITS ---
EXAMINATION: US PELVIS CLINICAL INFORMATION: Pelvic pain, lower abdominal pain. COMPARISON: Ultrasound abdomen complete 02/02/2021. And ultrasound pelvis 07/05/2018. TECHNIQUE: Ultrasound of the pelvis is performed using both transabdominal and transvaginal transducers along with Doppler. Transvaginal imaging is performed due to inadequate visualization transabdominally. FINDINGS: Uterus: The uterus is anteverted and measures 10.9 x 5.1 x 8.3 cm. The double wall endometrial thickness is 0.7 cm with fluid within the endometrial canal. The uterus is smooth in contour and has normal myometrial echogenicity. There are multiple hypoechoic lesions. 1. Lesion in anterior lower uterine segment measures 4.9 x 4.4 x 5.3 cm. Previously measured 3.5-3 0.4 x 3.6 cm. 2. Lesion in the posterior upper body of uterus measures 2.1 x 2.0 x 2.5 cm. Previously measured 2.2 x 1.5 x 1.8 cm. 3. Lesion in the anterior mid body of uterus measures 2.5 x 2.4 x 2.2 cm. Previously measured 2.4 x 1.9 x 2.6 cm. 4. Lesion in the mid sob mucosal area measures 0.8 x 0.7 x 0.9 cm. Previously not visualized. There are nabothian cysts in the cervix. Adnexa: Right ovary measures 1.6 x 1.1 x 1.4 cm. Volume 1.3 mL. Focal lesion seen. Left ovary is not visualized. No free fluid seen in the cul-de-sac. US/US pelvic and transvaginal IMPRESSION: Multiple uterine fibroids. Nabothian cysts in the cervix. Right ovary is unremarkable. Left ovaries not seen. Electronically signed by: Bird Aguiar MD 08/18/2024 03:02 PM [facility]
[2024-08-18 12:46] VITALS: BP 145/88; PULSE 82; RESP 18; TEMP 36.5; O2SAT 97; BMI 34.0
--- NOTE | 2024-08-18 12:48 | ED.GENADULT ---
HPI - General Adult General Chief complaint: Abdominal Pain Stated complaint: Vomiting Pain Related Data Home Medications ?Medication ?Instructions ?Recorded ?Confirmed cholecalciferol (vitamin D3) 25 25 mcg PO DAILY 06/29/22 04/03/24 mcg (1,000 unit) capsule diltiazem HCl 120 mg 120 mg PO DAILY 06/29/22 04/03/24 capsule,extended release 24 hr lisinopril 5 mg tablet 5 mg PO QAM 06/29/22 04/03/24 loratadine 10 mg tablet 10 mg PO DAILY PRN allergies 06/29/22 04/03/24 metoprolol succinate 25 mg 12.5 mg PO DAILY 06/29/22 04/03/24 tablet,extended release 24 hr montelukast 10 mg tablet 10 mg PO QPM 06/29/22 04/03/24 naproxen 500 mg tablet 500 mg PO BID PRN mild pain 06/29/22 04/03/24 paroxetine HCl 10 mg tablet 10 mg PO DAILY 06/29/22 04/03/24 trazodone 50 mg tablet 50 mg PO BEDTIME 06/29/22 04/03/24 albuterol sulfate 90 mcg/actuation 2 puff inhalation Q4-6H PRN 08/17/22 04/03/24 aerosol inhaler wheezing lorazepam 1 mg tablet 0.5 - 1 tab PO TID PRN 09/01/22 04/03/24 Tachyarrhythmias cetirizine 10 mg tablet (Zyrtec) 10 mg PO DAILY PRN 07/18/23 04/03/24 semaglutide (weight loss) 0.25 mg subcut 06/09/24 mg/0.5 mL subcutaneous pen injector (Meaghan) baclofen 10 mg tablet mg PO 3XD 07/18/24 hydrochlorothiazide 25 mg tablet mg PO DAILY 07/18/24 Previous Rx's ?Medication ?Instructions ?Recorded acetaminophen 500 mg tablet 1,000 mg (2 x 500 mg) PO QID PRN 02/02/21 (Tylenol Extra Strength) fever or pain #14 tabs hydrocortisone 2.5 % topical cream 1 appl MT BID-QID PRN hemorrhoids 08/04/21 with perineal applicator 30 days #30 grams Lactobacillus rhamnosus GG 10 1 cap PO DAILY 90 days #90 caps 06/29/22 billion cell capsule (Culturelle) Bifidobacterium infantis 4 mg 4 mg PO DAILY 90 days #90 caps 07/06/22 capsule (Align (B.infantis)) omeprazole 20 mg capsule,delayed 20 mg PO DAILY 90 days #90 caps 08/10/23 release ondansetron 4 mg disintegrating 4 mg PO Q8H PRN for 08/05/24 tablet nausea/vomiting #60 tabs Allergies Allergy/AdvReac Type Severity Reaction Status Date / Time famotidine [FAMOTIDINE] Allergy Mild HEADACHES Verified 08/18/24 12:49 ENVIRONMENTAL Allergy Intermediate NASAL Uncoded 08/18/24 12:49 CONGESTION PMFSH Past Medical History Medical History (Updated 08/20/24 @ 08:07 by PERICO Franklin) Bleeding hemorrhoids Chronic back pain Sleep apnea Depression GERD (gastroesophageal reflux disease) Anxiety Hypertension Asthma Tachycardia Surgical History Tubal ligation status H/O hand surgery Hx of foot surgery History of esophagogastroduodenoscopy (EGD) H/O colonoscopy Family History Family History Father Stomach cancer Social History Social History Household Members: Family Alcohol intake: never Patient Tobacco Use Status: Current everyday Tobacco user Tobacco use type: Cigarette Cigarettes Per Day: 10 Years Smoked: 40 Advance Directives: No Advance Directives Information Provided: No Physical Exam ED Vital Signs: BMI result Body Mass Index 34.0 Course Course Course Narrative: RME performed by Pina Gruber PA-C. Patient is a 49 year old assigned female at presenting to the emergency department with bilateral lower abdominal pain. Patient's limited physical exam performed in triage showed a non-toxic individual with a clear, non-muffled, speaking voice and in no acute distress. Detailed physical exam and review of systems are deferred to the cyber security analyst. Labs, imaging, and swabs ordered. Patient placed back in the waiting room pending room availability and results. Pina Gruber PA-C ---> Patient left the department without completing treatment. Patient left the department before myself or any of the other emergency department clinicians could explain to or review with the patient; physical exam findings, test results, need or lack there of for additional testing, need or lack there of for a procedure to be performed, need or lack there of for hospital admission / transfer, need or lack there of for prescription medication, treatment options, or a treatment plan. Medications Administered Discontinued Medications Generic Name Dose Route Start Last Admin Trade Name Freq PRN Reason Stop Dose Admin Ondansetron HCl 4 mg 08/18/24 12:50 08/18/24 12:53 Ondansetron Odt 4 Mg Tab.Rapdis TRANSLINGU 08/18/24 12:51 4 mg ONCE ONE Administration Medical Decision Making Lab Data 08/18/24 13:07 08/18/24 13:07 Labs: Lab Results 08/18/24 Range/Units 13:07 WBC 6.3 (4.8-10.8) X10*3/uL RBC 4.81 (4.20-5.50) X10*6/uL Hgb 13.9 (12.0-16.0) g/dl Hct 40.2 (37.0-47.0) % MCV 83.6 (80.0-98.0) fL MCH 28.9 (27.0-33.0) pg MCHC 34.6 (31.0-35.0) g/dl RDW 13.4 (11.0-16.0) % Plt Count 233 (160-400) X10*3/uL MPV 9.9 (9.4-12.3) fL Immature Gran % (Auto) 0.3 (0.0-0.4) % Neut % (Auto) 48.1 (45-73) % Lymph % (Auto) 34.1 (20-40) % Bartholomew % (Auto) 7.6 (2-11) % Eos % (Auto) 8.8 H (0-4) % Baso % (Auto) 1.1 (0-2) % Lymph # (Auto) 2.2 (1.2-4.9) X10*3/uL Bartholomew # (Auto) 0.5 (0.1-1.2) X10*3/uL Eos # (Auto) 0.6 H (0.0-0.4) X10*3/uL Baso # (Auto) 0.1 (0.0-0.2) X10*3/uL Abs Immat Gran (auto) 0.02 (0.00-0.03) X10*3/uL Absolute Neuts (auto) 3.0 (2.0-8.3) x10*3/uL Absolute Nucleated RBC 0.000 (0.0-0.012) X10*3/uL Nucleated RBC % (auto) 0.0 (0.0-0.2) /100WBC Sodium 140 (135-145) mmol/L Potassium 3.1 L (3.3-5.1) mmol/L Chloride 100 (96-108) mmol/L Carbon Dioxide 30 H (22-29) mmol/L Anion Gap 13 (12-20) BUN 14 (9-16) mg/dL Creatinine 0.62 (0.5-1.4) mg/dL Estim Creat Clear Calc 106.3 Estimated GFR > 60 Random Glucose 103 (60-115) mg/dL Calcium 9.3 (8.4-10.2) mg/dL Magnesium 1.9 (1.6-2.6) mg/dL Total Bilirubin 0.2 (0.0-1.0) mg/dL AST 26 (5-31) U/L ALT 37 H (0-31) U/L Alkaline Phosphatase 87 (39-117) U/L Total Protein 7.5 (6.5-8.0) g/dL Albumin 4.0 (3.5-5.0) g/dL Influenza Type A (PCR) NEGATIVE (Negative) Influenza Type B (PCR) NEGATIVE (Negative) RSV RNA Qual (PCR) NEGATIVE (Negative) SARS-CoV-2 RNA (RT-PCR) NEGATIVE (Negative) Discharge Plan Discharge Clinical Impression: Abdominal pain Patient Disposition: Left W/O Completing Treatment Prescriptions: No Action Align (B.infantis) 4 mg capsule 4 mg PO DAILY 90 Days Qty: 90 2RF omeprazole 20 mg capsule,delayed release(DR/EC) 20 mg PO DAILY 90 Days Qty: 90 1RF ondansetron 4 mg tablet,disintegrating 4 mg PO Q8H PRN (Reason: for nausea/vomiting) Qty: 60 0RF acetaminophen [Tylenol Extra Strength] 500 mg tablet 1,000 mg PO QID PRN (Reason: fever or pain) Qty: 14 0RF lorazepam 1 mg tablet 0.5 - 1 tab PO TID PRN (Reason: Tachyarrhythmias) naproxen 500 mg tablet 500 mg PO BID PRN (Reason: mild pain) lisinopril 5 mg tablet 5 mg PO QAM trazodone 50 mg tablet 50 mg PO BEDTIME montelukast 10 mg tablet 10 mg PO QPM paroxetine HCl 10 mg tablet 10 mg PO DAILY metoprolol succinate 25 mg tablet extended release 24 hr 12.5 mg PO DAILY diltiazem HCl 120 mg capsule,extended release 24hr 120 mg PO DAILY cholecalciferol (vitamin D3) 25 mcg (1,000 unit) capsule 25 mcg PO DAILY loratadine 10 mg tablet 10 mg PO DAILY PRN (Reason: allergies) Culturelle 10 billion cell capsule 1 cap PO DAILY 90 Days Qty: 90 1RF albuterol sulfate 90 mcg/actuation HFA aerosol inhaler 2 puff inhalation Q4-6H PRN (Reason: wheezing) hydrocortisone 2.5 % cream with perineal applicator 1 appl MT BID-QID PRN (Reason: hemorrhoids) 30 Days Qty: 30 1RF cetirizine [Zyrtec] 10 mg tablet 10 mg PO DAILY PRN Wegovy 0.25 mg/0.5 mL pen injector subcut hydrochlorothiazide 25 mg tablet PO DAILY baclofen 10 mg tablet PO 3XD Discharge Date/Time: 08/19/24 00:03
[2024-08-18] MEDS: Ondansetron ODT 4 MG TAB.RAPDIS TRANSLINGU (12:53)
[2024-08-18 13:16] LABS: MANUAL DIFF FLAG NO
[2024-08-18 13:19] LABS: Basophils Absolute Auto 0.1 X10*3/uL (0.0-0.2); Basophils Percent Auto 1.1 % (0-2); Eosinophils Absolute Auto 0.6 X10*3/uL (0.0-0.4); Eosinophils Percent Auto 8.8 % (0-4); Hematocrit 40.2 % (37.0-47.0); Hemoglobin 13.9 g/dl (12.0-16.0); Imm Gran Abs Auto 0.02 X10*3/uL (0.00-0.03); Imm Gran Pct Auto 0.3 % (0.0-0.4); Lymphocytes Absolute Auto 2.2 X10*3/uL (1.2-4.9); Lymphocytes Percent Auto 34.1 % (20-40); Mean Corpuscular HGB Conc 34.6 g/dl (31.0-35.0); Mean Corpuscular Hemoglobin 28.9 pg (27.0-33.0); Mean Corpuscular Volume 83.6 fL (80.0-98.0); Mean Platelet Volume 9.9 fL (9.4-12.3); Monocytes Absolute Auto 0.5 X10*3/uL (0.1-1.2); Monocytes Percent Auto 7.6 % (2-11); Neutrophils Percent Auto 48.1 % (45-73); Platelet Count 233 X10*3/uL (160-400); Red Blood Count 4.81 X10*6/uL (4.20-5.50); Red Cell Distribution Width 13.4 % (11.0-16.0); White Blood Count 6.3 X10*3/uL (4.8-10.8)
[2024-08-18 13:34] LABS: Alanine Aminotransferase 37 U/L (0-31); Alkaline Phosphatase 87 U/L (39-117); Anion Gap 13 (12-20); Aspartate Amino Transferase 26 U/L (5-31); Bilirubin Total 0.2 mg/dL (0.0-1.0); Blood Urea Nitrogen 14 mg/dL (9-16); Calcium 9.3 mg/dL (8.4-10.2); Carbon Dioxide 30 mmol/L (22-29); Chloride 100 mmol/L (96-108); Creatinine Clr Calc Pharmacy 106.3; Estimated Glomerular Filt Rate > 60; Glucose Random 103 mg/dL (60-115); Magnesium 1.9 mg/dL (1.6-2.6); Potassium 3.1 mmol/L (3.3-5.1); Sodium 140 mmol/L (135-145); Total Protein 7.5 g/dL (6.5-8.0)
[2024-08-18 14:03] LABS: Influenza A PCR NEGATIVE (Negative); Influenza B PCR NEGATIVE (Negative); Resp Syncy Virus RNA Qual PCR NEGATIVE (Negative); SARS COV2 PCR INHOUSE NEGATIVE (Negative)
== END 2024-08-19 00:03 | disposition left against medical advice (07) ==
PROVIDERS: Physician Assistant Medical; Emergency Provider Emergency Medicine; PCP Internal Medicine
DX: R10.30 Lower abdominal pain, unspecified (principal); I10 Essential (primary) hypertension; J45.909 Unspecified asthma, uncomplicated; Z03.818 Encounter for observation for suspected exposure to other biological agents ruled out
CPT/HCPCS: 0241U; 76830; 76856; 80053; 81515; 83735; 85025; 87491; 87591; 99281; 99284

== ENCOUNTER → 2024-08-18 12:49 | Outpatient (BNV) | payer OTHER, SELFPAY | PROVIDERS: PCP Internal Medicine; Visit Provider Radiology Diagnostic Radiology | DX: D25.9 Leiomyoma of uterus, unspecified (principal) | CPT/HCPCS: 76830; 76856 ==

== ENCOUNTER 2024-08-18 16:39 | Outpatient (REF) | payer OTHER, SELFPAY ==
--- OUTSIDE RECORDS SUMMARY | 2024-08-18 19:00 | XMS_ITS | Encounter Summary ---
Author Organization [employer] Address [address] [facility] 7t [place] [address] Care Team Providers Care Property Caretaker Name Role Phone Jamila Robledo MD Primary Care Provide r Reason for Visit * Reason Comments sick onsite Encounter Details Date Type Department Care Team ([facility] Contact Info) Description 08/18/2024 11:15 AM EST Office Visit [facility] [address] [place], [place] [phone] Leslie Peres NP [address] [place], [place] [phone] Lower abdominal pain (Primary Dx) Social History Tobacco Use Types [...] Sign Reading Time Taken Comments Blood Pressure 156/98 08/18/2024 12:44 PM EST Pulse 88 08/18/2024 11:34 AM EST Temperature 36.6 ??C (97.8 ??F) 08/18/2024 11:[address] Respiratory Rate 20 08/18/2024 11:34 AM EST Oxygen Saturation 95% 08/18/2024 11:34 AM EST Inhaled Oxygen Concentration - - Weight 87.3 kg (192 lb 6.4 oz) 08/18/2024 11:34 AM EST Height 160 cm (5' 3 ) 08/18/2024 11:34 AM EST Body Mass Index 34.08 08/18/2024 11:34 AM EST documented in this encounter Plan of Treatment Upcoming Encounters Date Type Department Care Team (Late st Contact Info) Description 09/15/2024 11:15 AM EDT Office Visit [facility] [address] [place] [address] Jamila Robledo MD [address] [place] [address] 09/16/2024 9:30 AM EDT Procedure Visit [facility] [address] [place] [address] [phone] Jamila Robledo MD [address] [place] [address] [phone] 10/10/2024 1:30 PM EDT Office Visit [facility] [address] [place] [address] [phone] Traci Singh MD [address] [place] [address] [phone] Scheduled Orders Name Type Priority Associated Diagnoses Orde r Schedule Bacterial Vaginosis Microbiology Routine Lower abdominal pain Expected: 08/18/2024 (Approximate), Expires: 08/18/2025 Chlamydia/N. Gonorrhoeae RNA, TMA, Urine Microbiology Routine Lower abdominal pain Expected: 08/18/2024 (Approximate), Expires: 08/18/2025 documented as of this encounter Visit Diagnoses Diagnosis Lower abdominal pain- Primary Abdominal pain, other specified site documented in this encounter Additional Health Concerns Assessment Noted Time PHQ-9 Depression Total Score: 0 02/06/20 24 2:56 PM EDT documented as of this encounter Care Teams Property Caretaker Relationship Specialty Start Date End Date Jamila Robledo MD [address] [place] [address] [phone] PCP - General Family Medicine 05/02/19 documented as of this encounter
--- OUTSIDE RECORDS SUMMARY | 2024-08-18 19:00 | XMS_ITS | Encounter Summary ---
Author Organization [employer] Address [address] [facility] 7t [place] [address] Care Team Providers Care Trim Attacher Name Role Phone Jamila Robledo MD Primary Care Provide r Reason for Visit * Reason Onset Date Comments Med Refill 08/13/2024 Encounter Details Date Type Department Care Team ([facility] Contact Info) Description 08/13/2024 Refill [facility] [address] [place] [address] Jamila Robledo MD [address] [place] [address] Social History Tobacco Use Types Packs/Day Years [...] t he electric, gas, oil or water [employer] threatened to shut off services in your [...] 11:15 AM EDT Office Visit [facility] [address] [place] [phone] Jamila Robledo MD [address] [place] [phone] 09/16/2024 9:30 AM EDT Procedure Visit [address] [address] Jamila Robledo MD [address] [place] [phone] 10/10/2024 1:30 PM EDT Office Visit [address] [address] Traci Singh MD [address] [place] [address] [phone] documented as of this encounter Visit Diagnoses Not on filedocumented in this encounter Additional Health Concerns Assessment Noted Time PHQ-9 Depression Total Score: 0 02/06/20 24 2:56 PM EDT documented as of this encounter Care Teams Trim Attacher Relationship Specialty Start Date End Date Jamila Robledo MD [address] [place] [address] PCP - General Family Medicine 05/02/19 documented as of this encounter
--- OUTSIDE RECORDS SUMMARY | 2024-08-18 19:00 | XMS_ITS | Encounter Summary ---
Author Organization [employer] Address [address] [facility] 7t [place] [address] Care Team Providers Care Automatic Developer Name Role Phone Jamila Robledo MD Primary Care Provide r Reason for Visit * Reason Onset Date Comments Results 08/13/2024 Encounter Details Date Type Department Care Team ([facility] Contact Info) Description 08/13/2024 Telephone [facility] [address] [place], [place] [phone] Aide Bishop MD [address] [place] [address] Results Social History Tobacco Use Types Packs/Day Years [...] encounter Miscellaneous Notes * Telephone Encounter - Nadia Shahid RN - 08/13/2024 3:11 PM EST Called pt to advise that potassium level came back slightly low and Dr Bishop sent potassium supplement to [facility] pharmacy on file to take. Reviewed med instructions: Take 1 tablet (20 mEq) by mouth 3times daily. Advised pt med should be ready for pickup this afternoon. Pt verbalized understanding,to call clinic with questions. * Telephone Encounter - Nadia Shahid RN - 08/13/2024 3:09 PM EST ----- Message from Aide Bishop MD sent at 08/13/2024 3:06 PM EST ----- Please let pt know her potasium was low again. I sent potassium to take tid for three days. Thank you. documented in this encounter Plan of Treatment Upcoming Encounters Date Type Department Care Team (Late st Contact Info) Description 09/15/2024 11:15 AM EDT Office Visit [facility] [address] [place] [address] Jamila Robledo MD [address] [place] [address] 09/16/2024 9:30 AM EDT Procedure Visit [address] [address] Jamila Robledo MD [address] [place] [address] 10/10/2024 1:30 PM EDT Office Visit [address] [address] Traci Singh MD [address] [place] [address] [phone] documented as of this encounter Visit Diagnoses Not on filedocumented in this encounter Additional Health Concerns Assessment Noted Time PHQ-9 Depression Total Score: 0 02/06/20 24 2:56 PM EDT documented as of this encounter Care Teams Automatic Developer Relationship Specialty Start Date End Date Jamila Robledo MD [address] [place] [address] [phone] PCP - General Family Medicine 05/02/19 documented as of this encounter
--- OUTSIDE RECORDS SUMMARY | 2024-08-18 19:00 | XMS_ITS | Encounter Summary ---
Author Organization [employer] Address [address] [facility] 7t [place] [address] Care Team Providers Care Maritime Officer Name Role Phone Jamila Robledo MD Primary Care Provide r Reason for Visit * Reason Comments Med Change Request Encounter Details Date Type Department Care Team ([facility] Contact Info) Description 06/28/2023 Refill [facility] [address] [place], [place] [phone] Ruth Costello FNP [address] [place] [address] Upper back pain on left side Social [...] Office Visit [facility] [address] [place] [address] Jamila Robledo MD [address] [place] [address] 09/16/2024 9:30 AM EDT Procedure Visit [facility] [address] [place] [address] Jamila Robledo MD [address] [place] [address] 10/10/2024 1:30 PM EDT Office Visit [address] [address] Traci Singh MD [address] [place] [address] documented as of this encounter Visit Diagnoses Diagnosis Upper back pain on left side documented in this encounter Additional Health Concerns Assessment Noted Time PHQ-9 Depression Total Score: 9 11/04/19 23 2:36 PM EDT documented as of this encounter Care Teams Maritime Officer Relationship Specialty Start Date End Date Jamila Robledo MD [address] [place] [address] PCP - General Family Medicine 05/02/19 documented as of this encounter
--- OUTSIDE RECORDS SUMMARY | 2024-08-18 19:00 | XMS_ITS | Encounter Summary ---
Author Organization [employer] Address 75 [facility] 7t [place] [address] Care Team Providers Care Train Examiner Name Role Phone Jamila Robledo MD Primary Care Provide r Reason for Visit * Reason Comments Med Refill Encounter Details Date Type Department Care Team ([facility] st Contact Info) Description 08/08/2023 Refill [facility] [address] [place], [place] [phone] Jamila Robledo MD [address] [place] [address] Psychophysiological insomnia Social History Tobacco Use Types [...] 11:15 AM EDT Office Visit [facility] [address] [place] [address] Jamila Robledo MD [address] [place] [address] 09/16/2024 9:30 AM EDT Procedure Visit [facility] [address] [place] [address] Jamila Robledo MD [address] [place] [address] 10/10/2024 1:30 PM EDT Office Visit [address] [address] Traci Singh MD [address] [place] [address] documented as of this encounter Visit Diagnoses Diagnosis Psychophysiological insomnia Persistent disorder of initiating or maintaining sleep documented in this encounter Additional Health Concerns Assessment Noted Time PHQ-9 Depression Total Score: 9 11/04/19 23 2:36 PM EDT documented as of this encounter Care Teams Train Examiner Relationship Specialty Start Date End Date Jamila Robledo MD [address] [place] [address] PCP - General Family Medicine 05/02/19 documented as of this encounter
--- OUTSIDE RECORDS SUMMARY | 2024-08-18 19:00 | XMS_ITS | Data Portability ---
Author Organization [employer] Address [address] [place] [phone] Care Team Providers Care Community Services Coordinator Name Role Phone [facility] Referring Provider [facility] Referring Provider Assessment Encounter Date Assessment Date Assessment LastModified by Organization Details LastModified Time 11/14/2022 11/14/2022 As noted, we were called to see this patient regarding concerns of sinus congestion. Evaluation in the field was performed by my service station console operator colleague, as noted above, I provided real-time [...] despite meds, vision changes, altered mental status. [email or web address] Not available 11/14/2022 15:14:51 Plan of Treatment Reminders Order Date Submit Date Provider Last Modified By Organization Details Last Modified Time Details Appointments None recorded. Lab None recorded. Referral None recorded. Procedures None recorded. Surgeries None recorded. Imaging None recorded. Medication Orders Paxlovid 300 mg (150 mg x 2)-100 mg tablets in a dose pack 2022 023 [facility] #[id number], [address] [facility] [place] [place], [address], 3 13:07:58 Patient TargetsNo targets recorded. Patient [...] 3 97 % 97 % 18 /min 78201.6 8 g 98.4 [degF] 83 /min 157.48 cm 134 mm[Hg] 82 mm[Hg] Not Available [facility] 3 13:02:00 Date Recorded Body temperature Body weight Oxygen saturation Oxygen saturation in Arterial blood by Pulse oximetry Respiratory rate Heart rate Systolic blood pressure Diastolic blood pressure Provider Name and Address Organization Details Last Updated DateTime 3 97.1 [degF] 57177.2 4 g 97 % 97 % 16 /min 76 /min 163 mm[Hg] 96 mm[Hg] Not Available [facility] 3 14:04:45 Date Recorded Body weight Body height Body temperature Oxygen saturation Oxygen saturation in Arterial blood by Pulse oximetry Heart rate Respiratory rate Systolic blood pressure Diastolic blood pressure Provider Name and Address Organization Details Last Updated DateTime 3 95790.6 4 g 157.48 cm 97.8 [degF] 95 % 95 % 61 /min 18 /min 124 mm[Hg] 80 mm[Hg] Not Available [facility] 3 11:16:46 Social History None recorded. Functional Status None recorded. Mental Status None recorded. Family History Nothing Reported. Medical History No medical history recorded. Gynecological HistoryNo gynecological history recorded. Obstetrics History GPAL:G 0 P 0 0 0 0 Past Encounters Encounter ID Performer Location Encounter Start Date Encounter Closed Date Diagnosis/Indication Diagnosis SNOMED-CT Code Diagnosis ICD10 Code Diagnosis Note [id number] Sneha Cintron MD [facility] [address] [place] [phone] 11/09/2022 14:04:34 11/10/2022 14:20:47 Acute bacterial sinusitis 51732522 J01.90 47 year old female, being evaluated [...] y changing to an alternativ e regimen. [id number] NEELAM ALVARADO MD [facility] [address] [place] [phone] 11/14/2022 11:16:43 11/15/2022 09:34:22 Congestion of nasal sinus 66883975 R09.81 [id number] Bam Luo MD [facility] [address] [place] [phone] 05/06/2023 13:01:58 05/06/2023 16:22:04 COVID-19 961771621 U07.1 47yo woman presents with URI symptoms [...] levels expected to be safe. Acute COVID-19 [id number] 8 U07.1 We discussed the benefit of Paxlovid to reduce the risk of hospitaliz ation and , and the potential downsides/ side effects, including dysgeusia, headache, COVID rebound, and the possibilit y of medication interactio ns despite my efforts to review medication s and pet adoption counselor on discontinu ation. We discussed alternativ [...] Navarro Member ID Guarantor Name 11/09/2022 1 [facility] - DOS ON OR AFTER 2022 - DUAL ELIGIBLE - CUSTODIAL OPTIONS AND ONE CARE (MEDICARE REPLACEMENT/ADV ANTAGE - HMO) Rohini Conner [id number] Rohini Conner 11/14/2022 1 [facility] - DOS ON OR AFTER 2022 - DUAL ELIGIBLE - CUSTODIAL OPTIONS AND ONE CARE (MEDICARE REPLACEMENT/ADV ANTAGE - HMO) Rohini Conner [id number] Rohini Conner 05/06/2023 1 [facility] - DOS ON OR AFTER 2022 - DUAL ELIGIBLE - CUSTODIAL OPTIONS AND ONE CARE (MEDICARE REPLACEMENT/ADV ANTAGE - HMO) Rohini Conner [id number] Rohini Conner Notes Date Note Type Note [...] process this visit. Sneha Cintron MD [address] [facility],[address], [place], [address], [employer] 11/09/2022 14:09:36 11/14/2022 text/html CRC Nursing Assessment: Reason For Request: Follow up visit>Sinus infection, which has not gotten better. Chief Complaints: URI PMH: COPD/Asthma, Hypertension, Heart Disease Allergies: No Known Comments: [facility] Member was on antibiotic amoxicillin and completed the course. Member continues to be congested, mild cough from being dry. Member has chills no fever but has pain and sinus pressure . Member has sob when sleeping and has to sleep upright Verified identity by .................. .................. .................. .................. .................. .................. .................. ............... Training Program Manager Note From Racheal Singleton: Sent to a call for a pt requesting follow up due to sinus infection. SC8 arrives on scene, pt is alert and oriented, airway is patent. [facility] prescribed amoxicillin x 7 days for sinus [...] expresses Zertec D seems to be ineffective. [facility] suggests changing to Shi and offers to send script for Shi and Saline nasal spray. Pt declines stating she's tried Shi and has Saline nasal spray. Pt advised to follow up with PCP for further evaluation. [facility] sends follow up request to pt's care team. Red flags discussed. Pt has no further questions. .................. .................. .................. .................. .................. .................. .................. ............... Disposition: Fulfilled NEELAM ALVARADO MD [address] [place] [address],[address], [place], [address], [employer] 11/14/2022 15:15:16 05/06/2023 text/html HPI: I tested [...] .................. .................. .................. .................. .................. .................. ............... Training Program Manager Note From Yosi Araujo: [facility] visit for [...] for symptoms with some improvement. Consulted with [facility] Dr. Luo who prescribed paxlovid for patients symptoms. Prescription sent to patients pharmacy. Patient education provided and encouraged to continue with home remedies as well. .................. .................. .................. .................. .................. .................. .................. ............... Disposition: Fulfilled Bam Luo MD [address] [facility],[address], [place], [address], [employer] 05/06/2023 13:08:00 OBGyn Episode No OBEpisode recorded.
--- OUTSIDE RECORDS SUMMARY | 2024-08-18 19:00 | XMS_ITS | Encounter Summary ---
Author Organization [employer] Address [address] [facility] [address] [place] [address] Care Team Providers Care Account Executive Key Accounts Name Role Phone Jamila Robledo MD Primary Care Provide r Encounter Details Date Type Department Care Team ([facility] Contact Info) Description 08/13/2024 Orders Only [facility] [address] [place] [address] [phone] Aide Bishop MD [address] [place] [address] Hypokalemia Social History Tobacco Use Types Packs/Day Years [...] the past 12 months, has t he [employer], gas, oil or water [employer] threatened to shut off services in your [...] Description 09/15/2024 11:15 AM EDT Office Visit [address] [address] Jamila Robledo MD [address] [place] [address] 09/16/2024 9:30 AM EDT Procedure Visit [address] [address] Jamila Robledo MD [address] [place] [address] 10/10/2024 1:30 PM EDT Office Visit [address] [phone] Traci Singh MD [address] [place] [address] documented as of this encounter Visit Diagnoses Diagnosis Hypokalemia Hypopotassemia documented in this encounter Additional Health Concerns Assessment Noted Time PHQ-9 Depression Total Score: 0 02/06/20 24 2:56 PM EDT documented as of this encounter Care Teams Account Executive Key Accounts Relationship Specialty Start Date End Date Jamila Robledo MD [address] [place] [address] PCP - General Family Medicine 05/02/19 documented as of this encounter
--- OUTSIDE RECORDS SUMMARY | 2024-08-18 19:00 | XMS_ITS | Encounter Summary ---
Author Organization [employer] Address [address] [facility] 7t [place] [address] Care Team Providers Care Technical Administrative Assistant Name Role Phone Jamila Robledo MD Primary Care Provide r Encounter Details Date Type Department Care Team ([facility] Contact Info) Description 03/18/2024 Orders Only [facility] [address] [place], [place] [phone] Jamila Robledo MD [address] [place], [place] [phone] Social History Tobacco Use Types Packs/Day Years [...] the past 12 months, has t he [employer], gas, oil or water [employer] threatened to shut off services in your [...] 09/15/2024 11:15 AM EDT Office Visit [facility] [address] [place] [address] Jamila Robledo MD [address] [place] [address] 09/16/2024 9:30 AM EDT Procedure Visit [address] [address] Jamila Robledo MD [address] [place] [address] 10/10/2024 1:30 PM EDT Office Visit [facility] [address] [place] [address] [phone] Traci Singh MD [address] [place] [address] documented as of this encounter Visit Diagnoses Not on filedocumented in this encounter Additional Health Concerns Assessment Noted Time PHQ-9 Depression Total Score: 0 02/06/20 24 2:56 PM EDT documented as of this encounter Care Teams Technical Administrative Assistant Relationship Specialty Start Date End Date Jamila Robledo MD [address] [place] [address] PCP - General Family Medicine 05/02/19 documented as of this encounter
--- OUTSIDE RECORDS SUMMARY | 2024-08-18 19:00 | XMS_ITS | Encounter Summary ---
Author Organization [employer] Address [address] [place] [address] 7t [place] [address] Care Team Providers Care Pelt Shearer Name Role Phone Jamila Robledo MD Primary Care Provide r Reason for Visit * Reason Comments Med Refill Encounter Details Date Type Department Care Team ([facility] Contact Info) Description 11/28/2022 Refill [facility] [address] [place] [address] Jamila Robledo MD [address] [place] [address] Acute non-recurrent frontal sinusitis Social History Tobacco [...] Upcoming Encounters Date Type Department Care Team ([facility] Contact Info) Description 09/15/2024 11:15 AM EDT Office Visit [facility] [address] [place] [address] Jamila Robledo MD [address] [place] [address] 09/16/2024 9:30 AM EDT Procedure Visit [address] [address] Jamila Robledo MD [address] [place] [address] 10/10/2024 1:30 PM EDT Office Visit [address] [address] Traci Singh MD [address] [place] [address] documented as of this encounter Visit Diagnoses Diagnosis Acute non-recurrent frontal sinusitis documented in this encounter Additional Health Concerns Assessment Noted Time PHQ-9 Depression Total Score: 9 11/04/19 23 2:36 PM EDT documented as of this encounter Care Teams Pelt Shearer Relationship Specialty Start Date End Date Jamila Robledo MD [address] [place] [address] [phone] PCP - General Family Medicine 05/02/19 documented as of this encounter
--- OUTSIDE RECORDS SUMMARY | 2024-08-18 19:00 | XMS_ITS | Encounter Summary ---
Author Organization [employer] Address [address] [facility] 7t [place] [address] Care Team Providers Care Business Operations Director Name Role Phone Jamila Robledo MD Primary Care Provide r Reason for Visit * Reason Onset Date Comments Nurse Triage 02/27/2024 Encounter Details Date Type Department Care Team ([facility] Contact Info) Description 02/27/2024 Telephone [facility] [address] [place], [place] [phone] Jamila Robledo MD [address] [place] [address] Nurse Triage Social History Tobacco Use Types [...] the past 12 months, has t he [employer], gas, oil or water [employer] threatened to shut off services in your [...] to check this. Advised to come to [facility] open till 8pm today and th, fri, 830a-4p. Pt agrees with this disposition and will come to [facility] probably in the morning. Insurance is verified [...] 11:15 AM EDT Office Visit [facility] [address] [place] [address] Jamila Robledo MD [address] [place] [address] 09/16/2024 9:30 AM EDT Procedure Visit [address] [address] Jamila Robledo MD [address] [place] [address] 10/10/2024 1:30 PM EDT Office Visit [address] [address] Traci Singh MD [address] [place] [address] documented as of this encounter Visit Diagnoses Not on filedocumented in this encounter Additional Health Concerns Assessment Noted Time PHQ-9 Depression Total Score: 0 02/06/20 24 2:56 PM EDT documented as of this encounter Care Teams Business Operations Director Relationship Specialty Start Date End Date Jamila Robledo MD [address] [place] [phone] PCP - General Family Medicine 05/02/19 documented as of this encounter
--- OUTSIDE RECORDS SUMMARY | 2024-08-18 19:00 | XMS_ITS | Encounter Summary ---
Author Organization [employer] Address 75 [facility] 7t [place] [address] Care Team Providers Care Plug And Mold Finisher Name Role Phone Jamila Robledo MD Primary Care Provide r Reason for Visit * Reason Onset Date Comments Nurse Triage 08/18/2024 Encounter Details Date Type Department Care Team ([facility] Contact Info) Description 08/18/2024 Telephone [facility] [address] [place], [place] [phone] Jamila Robledo MD [address] [place] [address] Nurse Triage Social History Tobacco Use Types [...] t he electric, gas, oil or water [employer] threatened to shut off services in your [...] encounter Miscellaneous Notes * Telephone Encounter - Mercedez Christie RN - 08/18/2024 9:04 AM EST called pt to triage, spoke to pt. pt states stomach pain worsening and requesting appt to be seen. pt reports has not had a regular period in about 5 months but has been spotting off and on. pt states low abdominal pain, stomach pain, and since yesterday intermittent vomiting. pt denies known exposures, other illness symptoms, fevers, rash, sore throat, or other associated symptoms. given appt today with blue team provider at 11:15 for exam and recheck. pt last seen in the walk in center on 08/13 and has referral for LEARNING AND DEVELOPMENT SPECIALIST, order for U/S and some labs ordered. advised home care: rest, fluids, light diet for now, and call back if worsening or new concerns. pt understands and agrees with plan. in surance verified. Protocol Used: Abdominal Pain - Female (Adult) Protocol-Based Disposition: See in Office or Video Visit Today Video visit offer not recorded Positive Triage Question: * Patient wants to be seen * All higher-acuity triage questions were negative Care Advice Discussed: * Rest * Drink Clear Fluids * Diet * Pass a Stool * Avoid Aspirin and NSAIDs * Reasons To Call Back - Severe pain lasts over 1 hour - Constant pain lasts over 2 hours - Intermittent pains (comes and goes, cramps) lasts over 48 hours - You become worse * Telephone Encounter - Louise Sky - 08/18/2024 8:27 AM EST Symptom: Abdominal Pain - Female - Not Outcome: Schedule an urgent appointment (within 4 hours) or talk to a nurse or provider soon Reason: Started within the past 3 days The caller accepted this outcome. [phone] documented in this encounter Plan of Treatment Upcoming Encounters Date Type Department Care Team (Late st Contact Info) Description 09/15/2024 11:15 AM EDT Office Visit [facility] [address] [place] [address] Jamila Robledo MD [address] [place] [address] 09/16/2024 9:30 AM EDT Procedure Visit [facility] [address] [place] [address] Jamila Robledo MD [address] [place] [address] 10/10/2024 1:30 PM EDT Office Visit [facility] [address] [place] [address] Traci Singh MD [address] [place] [address] documented as of this encounter Visit Diagnoses Not on filedocumented in this encounter Additional Health Concerns Assessment Noted Time PHQ-9 Depression Total Score: 0 02/06/20 24 2:56 PM EDT documented as of this encounter Care Teams Plug And Mold Finisher Relationship Specialty Start Date End Date Jamila Robledo MD [address] [place] [address] PCP - General Family Medicine 05/02/19 documented as of this encounter
--- OUTSIDE RECORDS SUMMARY | 2024-08-18 19:00 | XMS_ITS | Encounter Summary ---
Author Organization [employer] Address [address] [place] [address] 7t [place] [address] Care Team Providers Care Drawing Checker Name Role Phone Jamila Robledo MD Primary Care Provide r Reason for Referral * Consultation (Routine) - Authorized Specialty Diagnoses / Procedures Referred By Erik t Referred To Contact Obstetrics and Gynecology Diagnoses Abnormal vaginal bleeding Aide Bishop MD [address] [place] [address] Phone: tel: fax: [facility] [address] 5[address] (Main Hospital Entrance) [place], [place] Phone: tel: fax: Referral ID Status Reason Start Date Expiration Date Visits Requested Visits Authorized [id number] Authorized Specialty Services Required 08/13/2024 08/13/2025 1 1 * Imaging (Routine) - Authorized Specialty Diagnoses / Procedures Referred By Contac t Referred To Contact Radiology Diagnoses Abnormal vaginal bleeding Procedures US Pelvis Transvaginal Aide Bishop MD [address] [place] [address] Phone: tel: fax: [facility] [address] [place] [address] Phone: tel: fax: Referral ID Status Reason Start Date Expiration Date V isits Requested Visits Authorized [id number] Authorized 08/13/2024 08/13/2025 1 1 Reason for Visit * Reason Comments Vaginal Bleeding Encounter Details Date Type Department Care Team ([facility] st Contact Info) Description 08/13/2024 9:20 AM EST Office Visit [facility] [address] [place] [address] Aide Bishop MD [address] [place] [address] Abnormal vaginal bleeding (Primary Dx) Social History [...] t he electric, gas, oil or water [employer] threatened to shut off services in your [...] substances. Is not currently established with an IT INFRASTRUCTURE MANAGER. She reports she has had a low [...] bleeding x2 days. Not currently established with IT INFRASTRUCTURE MANAGER. Abdominal exam benign. -ordered CBC, TSH, iron panel, and BMP. -ordered transvaginal US -referred to IT INFRASTRUCTURE MANAGER -prescribed medroxyPROGESTERone 5 mg, TID x5days Relevant Medications medroxyPROGESTERone (Provera) 5 MG tablet Other Relevant Orders CBC auto differential TSH with Reflex to Free T4 Iron And Total Iron Binding Capacity Ferritin US Pelvis Transvaginal Basic Metabolic Panel Referral to Obstetrics / Gynecology -No evidence of acute disease process. Etiology unknown. Symptoms moderate. Hemodynamically stable. -Ordered labs, US and referred to IT INFRASTRUCTURE MANAGER. -ER precautions discussed. -Seek medical attention for [...] bleeding x2 days. Not currently established with IT INFRASTRUCTURE MANAGER. Abdominal exam benign. -ordered CBC, TSH, iron panel, and BMP. -ordered transvaginal US -referred to IT INFRASTRUCTURE MANAGER -prescribed medroxyPROGESTERone 5 mg, TID x5days documented in this encounter Plan of Treatment Upcoming Encounters Date Type Department Care Team (Late st Contact Info) Description 09/15/2024 11:15 AM EDT Office Visit [address] [address] Jamila Robledo MD [address] [place] [phone] 09/16/2024 9:30 AM EDT Procedure Visit [address] [address] Jamila Robledo MD [address] [place] [phone] 10/10/2024 1:30 PM EDT Office Visit [address] [address] Traci Singh MD [address] [place] [phone] Scheduled Orders Name Type Priority Associated Diagnoses [...] EST) Sodium 141 135 - 145 mmol/L [facility] Potassium 3.2(L) 3.3 - 5.1 mmol/L [facility] Chloride 104 96 - 108 mmol/L [facility] Carbon Dioxide 29 22 - 29 mmol/L [facility] Anion Gap 11(L) 12 - 20 [facility] Urea Nitrogen (BUN) 14 9 - 16 mg/dL [facility] Creatinine, Serum 0.53 0.5 - 1.4 mg/dL [facility] Estimated Glomerular Filt Rate >60 [facility] Comment:Chronic Kidney Disea se: Estimated GFR < 60 mL/min/1.92q4Crifgk Kidney Disease: Estimated GFR < 15 mL/min/1.73m2 Glucose 114 60 - 115 mg/dL [facility] Calcium 8.8 8.4 - 10.2 mg/dL [facility] Blood Venous blood specimen / Unknown 08/13/2024 10:02 AM EST 08/13/2024 11:08 AM EST us Aide Bishop MD LAB BLOOD ORDERABLES Final Result [facility] [address] [place] [address] [phone] * Ferritin (08/13/2024 10:02 AM EST) Ferritin 155 10 - 250 ng/mL [facility] Blood Venous blood specimen / Unknown 08/13/2024 10:02 AM EST 08/13/2024 11:08 AM EST Aide Bishop MD LAB BLOOD ORDERABLES Final Result [facility] [address] [place] [address] [phone] * Iron And Total Iron Binding Capacity (08/13/2024 10:02 AM EST) Iron 99 30 - 160 mcg/dL [facility] Total Iron Binding Capacity 314 228 - 428 mcg/dL [facility] Percent Iron Saturation 32 15 - 50 % [facility] Unsaturated Iron Binding 215 ug/dL [facility] Blood Venous blood specimen / Unknown 08/13/2024 10:02 AM EST 08/13/2024 11:08 AM EST Aide Bishop MD LAB BLOOD ORDERABLES Final Result Performing Organization Address City/[facility]/ZIP Co de Phone Number [facility] [address] [place] [phone] * TSH with Reflex to Free T4 (08/13/2024 10:02 AM EST) TSH reflex Free T4 0.63 0.32 - 4.0 uIU/mL [facility] Blood 08/13/2024 10:0 2 AM EST 08/13/2024 11:08 AM EST Aide Bishop MD LAB BLOOD ORDERABLES Final Result Performing Organization Address City/[facility]/ZIP Co de Phone Number [facility] [address] [place] [address] [phone] * (ABNORMAL) CBC auto differential (08/13/2024 10:02 AM EST) White Blood Count 4.9 4.8 - 10.8 X10*3/uL [facility] Red Blood Count 5.00 4.20 - 5.50 X10*6/uL [facility] Hemoglobin 14.3 12.0 - 16.0 g/dl [facility] Hematocrit 42.4 37.0 - 47.0 % [facility] Mean Corpuscular Volume 84.8 80.0 - 98.0 fL [facility] Mean Corpuscular Hemoglobin 28.6 27.0 - 33.0 pg [facility] Mean Corpuscular HGB Conc 33.7 31.0 - 35.0 g/dl [facility] Red Cell Distribution Width 13.7 11.0 - 16.0 % [facility] Platelet Count 240 160 - 400 X10*3/uL [facility] Mean Platelet Volume 10.1 9.4 - 12.3 fL [facility] Neutrophils Percent Auto 47.6 45 - 73 % [facility] Imm Gran Pct Auto 0.2 0.0 - 0.4 % [facility] Lymphocytes Percent Auto 33.1 20 - 40 % [facility] Monocytes Percent Auto 9.9 2 - 11 % [facility] Eosinophils Percent Auto 8.2(H) 0 - 4 % [facility] Basophils Percent Auto 1.0 0 - 2 % [facility] NRBC Pct Auto 0.0 0.0 - 0.2 /100WBC [facility] Neutrophils Absolute Auto 2.3 2.0 - 8.3 x10*3/uL [facility] Imm Gran Abs Auto 0.01 0.00 - 0.03 X10*3/uL [facility] Lymphocytes Absolute Auto 1.6 1.2 - 4.9 X10*3/uL [facility] Monocytes Absolute Auto 0.5 0.1 - 1.2 X10*3/uL [facility] Eosinophils Absolute Auto 0.4 0.0 - 0.4 X10*3/uL [facility] Basophils Absolute Auto 0.1 0.0 - 0.2 X10*3/uL [facility] NRBC Abs Auto 0.000 0.0 - 0.012 X10*3/uL [facility] Blood Venous blood specimen / Unknown 08/13/2024 10:02 AM EST 08/13/2024 11:08 AM EST us Aide Bishop MD LAB BLOOD ORDERABLES Final Result Performing Organization Address City/State/[facility] Co de Phone Number [facility] [address] [place] [phone] documented in this encounter Visit Diagnoses Diagnosis Abnormal vaginal bleeding- Primary Other specified noninflammatory disorder of vagina documented in this encounter Additional Health Concerns Assessment Noted Time PHQ-9 Depression Total Score: 0 02/06/20 24 2:56 PM EDT documented as of this encounter Care Teams Drawing Checker Relationship Specialty Start Date End Date Jamila Robledo MD [address] [place] [address] PCP - General Family Medicine 05/02/19 documented as of this encounter
--- OUTSIDE RECORDS SUMMARY | 2024-08-18 19:00 | XMS_ITS | Encounter Summary ---
Author Organization [employer] Address [address] [facility] 7t [place] [address] Care Team Providers Care Trim Mechanic Name Role Phone Jamila Robledo MD Primary Care Provide r Reason for Visit * Reason Comments Med Change Request Encounter Details Date Type Department Care Team ([facility] Contact Info) Description 07/17/2023 Refill [facility] [address] [place], [place] [phone] Ruth Costello FNP [address] [place] [address] Social History Tobacco Use Types Packs/Day Years [...] 11:15 AM EDT Office Visit [facility] [address] [place] [address] Jamila Robledo MD [address] [place] [phone] 09/16/2024 9:30 AM EDT Procedure Visit [facility] [address] [place] [address] Jamila Robledo MD [address] [place] [phone] 10/10/2024 1:30 PM EDT Office Visit [address] [address] Traci Singh MD [address] [place] [phone] documented as of this encounter Visit Diagnoses Not on filedocumented in this encounter Additional Health Concerns Assessment Noted Time PHQ-9 Depression Total Score: 9 11/04/19 23 2:36 PM EDT documented as of this encounter Care Teams Trim Mechanic Relationship Specialty Start Date End Date Jamila Robledo MD [address] [place] [address] [phone] PCP - General Family Medicine 05/02/19 documented as of this encounter
--- OUTSIDE RECORDS SUMMARY | 2024-08-18 19:00 | XMS_ITS | Encounter Summary ---
Author Organization [employer] Address [address] [facility] 7t [place] [address] Care Team Providers Care Assembler Dry Cell And Battery Name Role Phone Jamila Robledo MD Primary Care Provide r Reason for Visit * Reason Onset Date Comments Nurse Triage 08/12/2024 Encounter Details Date Type Department Care Team ([facility] Contact Info) Description 08/12/2024 Telephone [facility] [address] [place], [place] [phone] Jamila Robledo MD [address] [place] [address] Nurse Triage Social History Tobacco Use Types [...] t he electric, gas, oil or water [employer] threatened to shut off services in your [...] 09/15/2024 11:15 AM Jamila Beebe MD MEDICINE [facility] 09/16/2024 9:30 AM Jamila Beebe MD [facility] Insurance verified as active per [employer] Time Eligibility in [facility]. Positive Triage Question: * Age > 39 years with irregular or excessive bleeding * All higher-acuity triage questions were negative Care Advice Discussed: * Iron and Anemia * Reasons To Call Back - Severe abdomen pain or lightheadedness occurs - Bleeding worsens - You become worse * Telephone Encounter - Angelitoirisdimitrios Adan - 08/12/2024 1:24 PM EST Symptom: Vaginal Bleeding - Not Outcome: Talk to a nurse or provider within 15 minutes Reason: Heavy bleeding The caller accepted this outcome. documented in this encounter Plan of Treatment Upcoming Encounters Date Type Department Care Team (Late st Contact Info) Description 09/15/2024 11:15 AM EDT Office Visit [address] [address] Jamila Robledo MD [address] [place] [phone] 09/16/2024 9:30 AM EDT Procedure Visit [address] [address] Jamila Robledo MD [address] [place] [phone] 10/10/2024 1:30 PM EDT Office Visit [address] [address] Traci Singh MD [address] [place] [phone] documented as of this encounter Visit Diagnoses Not on filedocumented in this encounter Additional Health Concerns Assessment Noted Time PHQ-9 Depression Total Score: 0 02/06/20 24 2:56 PM EDT documented as of this encounter Care Teams Assembler Dry Cell And Battery Relationship Specialty Start Date End Date Jamila Robledo MD [address] [place] [phone] PCP - General Family Medicine 05/02/19 documented as of this encounter
--- OUTSIDE RECORDS SUMMARY | 2024-08-18 19:00 | XMS_ITS | Encounter Summary ---
Author Organization [employer] Address [address] [place] [address] [place] [address] Care Team Providers Care Electromagnet Crane Operator Name Role Phone Jamila Robledo MD Primary Care Provide r Reason for Visit * Reason Comments Med Refill Encounter Details Date Type Department Care Team (Late Contact Info) Description 01/19/2023 Refill [facility] [address] [place] [phone] Liza Matos FNP [address] [place] [address] Dept [place] [address] Psychophysiological insomnia Social History Tobacco Use Types [...] Description 09/15/2024 11:15 AM EDT Office Visit [facility] [address] [place] [address] [phone] Jamila Robledo MD [address] [place], [place] [phone] 09/16/2024 9:30 AM EDT Procedure Visit [facility] [address] [place] [phone] Jamila Robledo MD [address] [place] [address] [phone] 10/10/2024 1:30 PM EDT Office Visit [facility] [address] [place] [address] [phone] Traci Singh MD [address] [place] [address] [phone] documented as of this encounter Visit Diagnoses Diagnosis Psychophysiological insomnia Persistent disorder of initiating or maintaining sleep documented in this encounter Additional Health Concerns Assessment Noted Time PHQ-9 Depression Total Score: 9 11/04/19 23 2:36 PM EDT documented as of this encounter Care Teams Electromagnet Crane Operator Relationship Specialty Start Date End Date Jamila Robledo MD [address] [place] [address] [phone] PCP - General Family Medicine 05/02/19 documented as of this encounter
--- OUTSIDE RECORDS SUMMARY | 2024-08-18 19:00 | XMS_ITS | Clinical Summary ---
Author Organization [employer] Address [address] [place] [address] 7[address] [place] [address] Care Team Providers Care High Lift Operator Name Role Phone Jamila Robledo MD [...] if needed for wheezing. 75 mL 11 Active LORazepam (Ativan) 1 MG tabletIndicatio ns:Anxiety [...] and swelling). 30 g 2 024 Active hydroCHLOROthia zide (HYDRODiuril) 25 MG tabletIndicatio ns:Hypokalemia Take 1 tablet (25 mg) by mouth Once per day. 30 tablet 024 2024 Active fluticasone (Flonase) 50 MCG/ACT nasal sprayIndication s:Acute non-recurrent frontal sinusitis SPRAY 2 SPRAYS INTO EACH NOSTRIL EVERY DAY NEEDED 48 mL 1 Active fluticasone furoate (Arnuity Ellipta) 200 MCG/ACT inhaler TAKE 1 PUFF BY MOUTH ONCE A DAY 30 each 3 024 Active FREESTYLE LITE test stripIndication s:Prediabetes Use to test blood sugar 2 times daily 100 each 12 024 2024 Active Blood Glucose Monitoring Suppl (FreeStyle [place] Lite) w/Device kitIndications: Prediabetes Use to test blood sugar 2 times daily 1 kit Active Alcohol Swabs 70 % padsIndications :Prediabetes Use to test blood sugar 2 times daily 100 each 2 Active cetirizine (ZyrTEC) 10 MG tabletIndicatio ns:Seasonal allergic rhinitis, unspecified trigger Take 1 tablet (10 mg) by mouth Once per day. 30 tablet 024 2024 Active sharps container 1 each if needed (For lancet disposal after checking blood sugar twice daily). 1 each Active famotidine (Pepcid) 20 MG tabletIndicatio ns:Epigastric [...] EVERY DAY 90 tablet 2 025 Active traZODone (Desyrel) 50 MG tabletIndicatio ns:Psychophysio logical insomnia TAKE 1 TABLET BY MOUTH EVERYDAY AT BEDTIME 90 tablet 1 025 Active medroxyPROGESTE Cory (Provera) 5 MG tabletIndicatio ns:Abnormal vaginal bleeding Take 1 tablet (5 mg) by mouth 3 times daily for 5 days. 15 tablet 025 Active baclofen (Lioresal) 10 MG tablet Take 1 tablet (10 mg) by mouth 3 times daily. 90 tablet Active potassium chloride CR (Klor-Con M20) 20 MEQ ER tabletIndicatio ns:Hypokalemia Take 1 tablet (20 mEq) by mouth 3 times daily. Do not crush or chew. 9 tablet 025 2025 Active potassium chloride CR (Klor-Con M20) 20 MEQ ER tabletIndicatio ns:Hypokalemia Take 1 tablet (20 mEq) by mouth 3 times daily. Do not crush or chew. 9 tablet 024 2024 Discontinued baclofen (Lioresal) 10 MG tablet TAKE 1 TABLET BY MOUTH THREE TIMES A DAY 90 tablet 025 2024 Discontinued(R eorder (will not trigger notification to Pharmacy)) Active Problems Problem Noted Date Diagnosed Date Abnormal vaginal bleeding 08/13/2024 Assessment & Plan (08/13/2024 9:50 AM EST): (a set of twins), irregular periods x1.5 yrs and amenorrhea the last 5 months. Heavy vaginal bleeding x2 days. Not currently established with [facility]. Abdominal exam benign. -ordered CBC, TSH, iron panel, and BMP. -ordered transvaginal US -referred to [facility] -prescribed medroxyPROGESTERone 5 mg, TID x5days Right [...] Encounters Date Type Department Care Team Description 08/18/2024 11:15 AM EST Office Visit [facility] [address] [place] [phone] Leslie Peres NP Lower abdominal pain (Primary Dx) 08/18/2024 Orders Only GENERIC EXTERNAL DATA DEPARTMENT Provider, Generic External Data 08/18/2024 Travel 08/18/[address] [facility] [address] [place] [address] Jamila Robledo MD Acute non-recurrent frontal sinusitis 08/18/[address] [address] Jamila Robledo MD Nurse Triage 08/13/2024 9:20 AM EST Office Visit [facility] [address] [place] [phone] Aide Bishop MD Abnormal vaginal bleeding (Primary Dx) 08/13/2024 Telephone [facility] [address] [place] [phone] Aide Bishop MD Results 08/13/2024 Telephone [facility] [address] [place] [phone] Jamila Robledo MD Results 08/13/2024 Orders Only [facility] [address] [place] [phone] Aide Bishop MD Hypokalemia 08/13/[address] [facility] [address] [place] [address] Jamila Robledo MD 08/12/2024 Telephone [facility] [address] [place] [address] Jamila Robledo MD Nurse Triage 07/10/2024 Refill [facility] [address] [facility] [place] [address] Jamila Robledo MD Chronic pansinusitis; Mild persistent asthma without complication; Gastroesophageal reflux disease, unspecified whether esophagitis present; Psychophysiological insomnia 06/17/2024 12:30 PM EST Telemedicine [facility] [address] [facility] [place] [address] Jamila Robledo MD Obesity (BMI 30-39.9) (Primary Dx); Prediabetes; Right hip pain; Trochanteric bursitis of right hip 06/17/2024 Travel 05/30/2024 Refill [facility] [address] [place] [address] Jamila Robledo MD Prediabetes from Last 3 [...] Mass Index 34.08 08/18/2024 11:34 AM EST Plan of Treatment Upcoming Encounters Date Type Department Care Team (Late st Contact Info) Description 09/15/2024 11:15 AM EDT Office Visit [facility] [address] [place] [phone] Jamila Robledo MD [address] [place] [phone] 09/16/2024 9:30 AM EDT Procedure Visit [facility] [address] [place] [phone] Jamila Robledo MD [address] [place] [address] 10/10/2024 1:30 PM EDT Office Visit [facility] [address] [place] [phone] Traci Singh MD [address] [place] [address] Health Maintenance Due Date Last Done Comments [...] Procedure Name Priority Date/Time Associated Diagnosis Comments US PELVIS TRANSVAGINAL Routine 08/18/2024 1:23 PM EST MAGNESIUM Routine 08/18/2024 1:07 PM EST COMPREHENSIVE METABOLIC PANEL Routine 08/18/2024 1:07 PM EST CBC WITH AUTO DIFFERENTIAL Routine 08/18/2024 1:07 PM EST SARS COV2/INFLUENZA A/B AND RSV RNA QL NAAT Routine 08/18/2024 1:07 PM EST BASIC METABOLIC PANEL Routine 08/13/2024 10:02 AM [...] Recently Relevant to Health Maintenance Results * US Pelvis Transvaginal (08/18/2024 1:23 PM EST) Anatomical Region Laterality Modality Pelvis Ultrasound 08/18/2024 1:23 PM EST Narrative 08/18/2024 3:05 PM EST ? [facility] ?[address] ?[place] [address] ? Ultrasound Report ? Signed ? Patient: Conner,Rohini ?MR#: [id number] ? : 1975 ?Acct:[id number] ? Age/Sex: 49 / F ?ADM Date: 03/03/25 ? Loc: HO.ED ? Attending Dr: ? Ordering Physician: Pina Gruber ?? Date of Service: 08/18/24 ?? Procedure(s): US pelvic and transvaginal ?? Accession Number(s): [id number] ? cc: Jamila Robledo MD; Pina Gruber ? EXAMINATION: ? US PELVIS ? CLINICAL INFORMATION: ? Pelvic pain, lower abdominal pain. ? COMPARISON: ?? Ultrasound abdomen complete 02/02/2021. And ultrasound pelvis 07/05/2018. ? TECHNIQUE: ?? Ultrasound of the pelvis is performed using both transabdominal and ?? transvaginal transducers along with Doppler. Transvaginal imaging is ?? performed due to inadequate visualization transabdominally. ? FINDINGS: ?? Uterus: ?? The uterus is anteverted and measures 10.9 x 5.1 x 8.3 cm. ? The double wall endometrial thickness is 0.7 cm with fluid within the ?? endometrial canal. The uterus is smooth in contour and has normal ?? myometrial echogenicity. ?? There are multiple hypoechoic lesions. ?? 1. Lesion in anterior lower uterine segment measures 4.9 x 4.4 x 5.3 ?? cm. Previously measured 3.5-3 0.4 x 3.6 cm. ? 2. Lesion in the posterior upper body of uterus measures 2.1 x 2.0 x ?? 2.5 cm. Previously measured 2.2 x 1.5 x 1.8 cm. ?? 3. Lesion in the anterior mid body of uterus measures 2.5 x 2.4 x 2.2 ?? cm. Previously measured 2.4 x 1.9 x 2.6 cm. ?? 4. Lesion in the mid sob mucosal area measures 0.8 x 0.7 x 0.9 cm. ?? Previously not visualized. ? There are nabothian cysts in the cervix. ? Adnexa: ? Right ovary measures 1.6 x 1.1 x 1.4 cm. Volume 1.3 mL. Focal lesion ?? seen. ? Left ovary is not visualized. ? No free fluid seen in the cul-de-sac. ? US/US pelvic and transvaginal ?? IMPRESSION: ?? Multiple uterine fibroids. ? Nabothian cysts in the cervix. ? Right ovary is unremarkable. ? Left ovaries not seen. ? Electronically signed by: ??Bird Aguiar MD ??08/18/2024 03:02 PM EST RP ? Dictated By: ?Bird Aguiar MD ? Signed By: ?<Electronically signed by Bird Aguiar MD in OV> ?08/18/24 1502 ? DD/ 1323 ? TD/TT: 08/18/24 1346 ? Burglar Alarm Assembler: MSM ? Procedure Note Donotuseinterpreter, Image - 08/18/2024 [place] [id number] Ultrasound Report Signed Patient: Elham Conner#: [id number] : 1975Acct:[id number] Age/Sex: 49 / FADM Date: 08/18/24 Loc: HO.ED Attending Dr: Ordering Physician: Pina Gruber Date of Service: 08/18/24 Procedure(s): US pelvic and transvaginal Accession Number(s): [id number] cc: Jamila Robledo MD; Pina Gruber EXAMINATION: US PELVIS CLINICAL INFORMATION: Pelvic pain, lower abdominal pain. COMPARISON: Ultrasound abdomen complete 02/02/2021. And ultrasound pelvis 07/05/2018. TECHNIQUE: Ultrasound of the pelvis is performed using both transabdominal and transvaginal transducers along with Doppler. Transvaginal imaging is performed due to inadequate visualization transabdominally. FINDINGS: Uterus: The uterus is anteverted and measures 10.9 x 5.1 x 8.3 cm. The double wall endometrial thickness is 0.7 cm with fluid within the endometrial canal. The uterus is smooth in contour and has normal myometrial echogenicity. There are multiple hypoechoic lesions. 1. Lesion in anterior lower uterine segment measures 4.9 x 4.4 x 5.3 cm. Previously measured 3.5-3 0.4 x 3.6 cm. 2. Lesion in the posterior upper body of uterus measures 2.1 x 2.0 x 2.5 cm. Previously measured 2.2 x 1.5 x 1.8 cm. 3. Lesion in the anterior mid body of uterus measures 2.5 x 2.4 x 2.2 cm. Previously measured 2.4 x 1.9 x 2.6 cm. 4. Lesion in the mid sob mucosal area measures 0.8 x 0.7 x 0.9 cm. Previously not visualized. There are nabothian cysts in the cervix. Adnexa: Right ovary measures 1.6 x 1.1 x 1.4 cm. Volume 1.3 mL. Focal lesion seen. Left ovary is not visualized. No free fluid seen in the cul-de-sac. US/US pelvic and transvaginal IMPRESSION: Multiple uterine fibroids. Nabothian cysts in the cervix. Right ovary is unremarkable. Left ovaries not seen. Electronically signed by: Bird Aguiar MD 08/18/2024 03:02 PM EST RP Dictated By: Bird Aguiar MD Signed By: <Electronically signed by Bird Aguiar MD in OV> 08/18/24 1502 DD/ 1323 TD/TT: 08/18/24 1346 [place]glar Alarm Assembler: [facility] External Provider IMG US PROCEDURES Final Result * SARS-CoV-2 RNA, Influenza A/B, and RSV RNA, Ql NAAT (08/18/2024 1:07 PM EST) Influenza A PCR NEGATIVE Negative [facility] Influenza B PCR NEGATIVE Negative [facility] Resp Syncy Virus RNA Qual PCR NEGATIVE Negative [facility] SARS COV2 PCR NEGATIVE Negative [facility] Comment:All test results mus t be correlated with clinical findings.Negative results do not preclude SARS-CoV2, influenza Avirus, influenza B virus and/or RSV infectionand should not be used as the sole basis for treatment orother patient management decisions. Negative results must becombined with clinical observations, patient history, andepidemiological information.This test has not been evaluated for monitoring treatment ofinfection.This test has been authorized by the FDA under an EmergencyUse Authorization (EUA) for use by authorized laboratories.Testing performed on the [employer] GeneXpert utilizingreal-time RT-PCR.All SARS CoV2 and positive influenza A/B results arereported to [facility]PER [facility]. 08/18/2024 1:07 PM EST 08/18/2024 1:14 PM EST us Generic External Data Provider LAB MICROBIOLOGY - GENERAL ORDERABLES Final Result [facility] [address] [place] [phone] * (ABNORMAL) CBC auto differential (08/18/2024 1:07 PM EST) Only the most recent of2 resultswithin the time period is included. White Blood Count 6.3 4.8 - 10.8 X10*3/uL [facility] Red Blood Count 4.81 4.20 - 5.50 X10*6/uL [facility] Hemoglobin 13.9 12.0 - 16.0 g/dl [facility] Hematocrit 40.2 37.0 - 47.0 % [facility] Mean Corpuscular Volume 83.6 80.0 - 98.0 fL [facility] Mean Corpuscular Hemoglobin 28.9 27.0 - 33.0 pg [facility] Mean Corpuscular HGB Conc 34.6 31.0 - 35.0 g/dl [facility] Red Cell Distribution Width 13.4 11.0 - 16.0 % [facility] Platelet Count 233 160 - 400 X10*3/uL [facility] Mean Platelet Volume 9.9 9.4 - 12.3 fL [facility] Neutrophils Percent Auto 48.1 45 - 73 % [facility] Imm Gran Pct Auto 0.3 0.0 - 0.4 % [facility] Lymphocytes Percent Auto 34.1 20 - 40 % [facility] Monocytes Percent Auto 7.6 2 - 11 % [facility] Eosinophils Percent Auto 8.8(H) 0 - 4 % [facility] Basophils Percent Auto 1.1 0 - 2 % [facility] NRBC Pct Auto 0.0 0.0 - 0.2 /100WBC [facility] Neutrophils Absolute Auto 3.0 2.0 - 8.3 x10*3/uL [facility] Imm Gran Abs Auto 0.02 0.00 - 0.03 X10*3/uL [facility] Lymphocytes Absolute Auto 2.2 1.2 - 4.9 X10*3/uL [facility] Monocytes Absolute Auto 0.5 0.1 - 1.2 X10*3/uL [facility] Eosinophils Absolute Auto 0.6(H) 0.0 - 0.4 X10*3/uL [facility] Basophils Absolute Auto 0.1 0.0 - 0.2 X10*3/uL [facility] NRBC Abs Auto 0.000 0.0 - 0.012 X10*3/uL [facility] 08/18/2024 1:07 PM EST 08/18/2024 1:14 PM EST Generic External Data Provider LAB BLOOD ORDERAB LES Final Result Performing Organization Address [facility] de Phone Number [facility] [address] [place] [phone] * Magnesium (08/18/2024 1:07 PM EST) Pathologist [facility] Magnesium 1.9 1.6 - 2.6 mg/dL [facility] 08/18/2024 1:07 PM EST 08/18/2024 1:14 PM EST [facility] External Data Provider LAB BLOOD ORDERAB LES Final Result Performing Organization Address [facility] de Phone Number [facility] [address] [place] [phone] * (ABNORMAL) Comprehensive Metabolic Panel (08/18/2024 1:07 PM EST) Pathologist [facility] Sodium 140 135 - 145 mmol/L [facility] Potassium 3.1(L) 3.3 - 5.1 mmol/L [facility] Chloride 100 96 - 108 mmol/L [facility] Carbon Dioxide 30(H) 22 - 29 mmol/L [facility] Anion Gap 13 12 - 20 [facility] Urea Nitrogen (BUN) 14 9 - 16 mg/dL [facility] Creatinine, Serum 0.62 0.5 - 1.4 mg/dL [facility] Creatinine Clr Calc Pharmacy 106.3 [facility] Comment:Provided height and weight: 154.94 cm,81.647 kg.eGFR (calculated from the MDRD study equation) and eCrCl(calculated from the Cockcroft-Gault equation) are based ondifferent parameters and may not yield comparable results.If eCrCl result is absurd, please check patient'sheight/weight. Estimated Glomerular Filt Rate >60 [facility] Comment:Chronic Kidney Disea se: Estimated GFR < 60 mL/min/1.13d1Osyubo Kidney Disease: Estimated GFR < 15 mL/min/1.73m2 Glucose 103 60 - 115 mg/dL [facility] Calcium 9.3 8.4 - 10.2 mg/dL [facility] Bilirubin, Total 0.2 0.0 - 1.0 mg/dL [facility] Aspartate Amino Transferase 26 5 - 31 U/L [facility] Alanine Aminotransferase 37(H) 0 - 31 U/L [facility] Total Protein 7.5 6.5 - 8.0 g/dL [facility] Albumin Level 4.0 3.5 - 5.0 g/dL [facility] Alkaline Phosphatase 87 39 - 117 U/L [facility] 08/18/2024 1:07 PM EST 08/18/2024 1:14 PM EST us Generic External Data Provider LAB BLOOD ORDERAB LES Final Result [facility] [address] [place], [place] [phone] * TSH with Reflex to Free T4 (08/13/2024 10:02 AM EST) TSH reflex Free T4 0.63 0.32 - 4.0 uIU/mL [facility] Blood 08/13/2024 10:0 2 AM EST 08/13/2024 11:08 AM EST Aide Bishop MD LAB BLOOD ORDERABLES Final Result Performing Organization Address City/[facility]/ZIP Co de Phone Number [facility] [address] [place] [phone] * Iron And Total Iron Binding Capacity (08/13/2024 10:02 AM EST) Pathologist [facility] Iron 99 30 - 160 mcg/dL [facility] Total Iron Binding Capacity 314 228 - 428 mcg/dL [facility] Percent Iron Saturation 32 15 - 50 % [facility] Unsaturated Iron Binding 215 ug/dL [facility] Blood Venous blood specimen / Unknown 08/13/2024 10:02 AM EST 08/13/2024 11:08 AM EST Aide Bishop MD LAB BLOOD ORDERABLES Final Result Performing Organization Address [facility] Co de Phone Number [facility] [address] [place] [phone] * Ferritin (08/13/2024 10:02 AM EST) [facility] Ferritin 155 10 - 250 ng/mL [facility] Blood Venous blood specimen / Unknown 08/13/2024 10:02 AM EST 08/13/2024 11:08 AM EST Aide Bishop MD LAB BLOOD ORDERABLES Final Result Performing Organization Address [facility] Co de Phone Number [facility] [address] [place] [phone] * (ABNORMAL) Basic Metabolic Panel (08/13/2024 10:02 AM EST) Pathologist [facility] Sodium 141 135 - 145 mmol/L [facility] Potassium 3.2(L) 3.3 - 5.1 mmol/L [facility] Chloride 104 96 - 108 mmol/L [facility] Carbon Dioxide 29 22 - 29 mmol/L [facility] Anion Gap 11(L) 12 - 20 [facility] Urea Nitrogen (BUN) 14 9 - 16 mg/dL [facility] Creatinine, Serum 0.53 0.5 - 1.4 mg/dL [facility] Estimated Glomerular Filt Rate >60 [facility] Comment:Chronic Kidney Disea se: Estimated GFR < 60 mL/min/1.50s4Brfgnk Kidney Disease: Estimated GFR < 15 mL/min/1.73m2 Glucose 114 60 - 115 mg/dL [facility] Calcium 8.8 8.4 - 10.2 mg/dL [facility] Blood Venous blood specimen / Unknown 08/13/2024 10:02 AM EST 08/13/2024 11:08 AM EST Aide Bishop MD LAB BLOOD ORDERABLES Final Result Performing Organization Address City/[facility]/ZIP Co de Phone Number [facility] [address] [place] [phone] * Hepatitis C Ab (04/03/2024 11:38 AM EDT) [facility] Hepatitis C Antibody Nonreactive Nonreactive [facility] Comment:Antibodies to HCV no t detected; does not exclude early acuteHCV infection. 04/03/2024 11:3 8 AM EDT 04/03/2024 11:48 AM EDT Generic External Data Provider LAB BLOOD ORDERAB LES Final Result Performing Organization Address [facility]/ZIP Co de Phone Number [facility] [address] [place] [phone] * (ABNORMAL) POCT HGB A1C (03/11/2024 5:49 PM EDT) Pathologist [facility] Hemoglobin A1C 6.3(A) 4.0 - 6.0 % QC Media Lot # [id number] Lot# Expiration Date ,026 Blood 03/11/2024 5:49 PM EDT us Wicho Desai MD POINT OF CARE TEST ENTER/EDIT OR DERABLES Final Result * (ABNORMAL) Lipid Panel, Standard (01/08/2024 12:04 PM EDT) Triglycerides 143 <150 mg/dL [facility] Comment:Desirable Triglyceri de: less than 150 mg/dLBorderline High Triglyceride 150-199 mg/dLHigh Triglyceride: 200-499 mg/dLVery High Triglyceride: greater than or equal to 5OO mg/dL Cholesterol 187 <200 mg/dL [facility] Comment:Desirable Cholestero l: less than 200 mg/dLBorderline High Cholesterol: 200-239 mg/dLHigh Cholesterol: greater than 239 mg/dL LDL Cholesterol Calculated 119(H) <100 mg/dL [facility] Comment:Desirable LDL: less than 100 mg/dLNear Optimal/Above Optimal LDL: 110- 129 mg/dLBorderline High LDL: 130-159 mg/dLHigh LDL: 160-189 mg/dLVery High LDL: greater than or equal to 190 mg/dL HDL Cholesterol 40(L) >40 mg/dL [facility] Comment:Desirable HDL: great er than 40 mg/dL Note: This HDL assay may give artificially low results in patients with liver disease. Blood Venous blood specimen / Unknown 01/08/2024 12:04 PM EDT 01/08/2024 1:04 PM EDT us Jamila Beebe MD LAB BLOOD ORDERABLES Final Result [facility] [address] [place] [address] [phone] * Mammography Report 1 (05/01/2022 11:34 AM EST) Anatomical Region Laterality Modality Breast Bilateral Mammography 05/01/2022 11:3 4 AM EST Narrative 05/01/2022 12:16 PM EST Refer to the Notes tab for result details [facility] Procedure: Mammography Report 1 Procedure Note Provider, MD Armen - 09/10/2022 Refer to the Notes tab for result details [facility] Procedure: Mammography Report 1 Kimberley Tavares [employer] IMG BI PROCEDURES Final Result * HPV mRNA E6/E7 (08/28/2019 10:30 AM EDT) HPV mRNA E6/E7 Not Detected NOT DETECTED [facility] Comment: This test was performed using the APTIMA(R) HPV Assay ([employer] This assay detects E6/E7 viral messenger RNA (mRNA) from 14 high-risk HPV types (16,18,31,33,35,39,45,51, 52,56,58,59,66,68). For additional information please refer to: http://education.Glimpse/faq/DLS139o7 (This link is being provided for informational/ educational purposes only.) The analytical performance characteristics of this assay have been determined by [employer] [place], [place]. The modifications have not been cleared or approved by the FDA. This assay has been validated pursuant to the CLIA regulations and is used for clinical purposes. Test Performed by [facility], [facility] [place], [address] [place] [address] Tam Reeder M.D., Ph.D., Director of Laboratories , CLIA [id number] Please note: ??Effective 02/28/2016, HPV testing will be performed using [employer]'s APTIMA test which targets mRNA. Detecting mRNA instead of DNA, as in older methods, offers significant improvements in specificity. 08/28/2019 10:3 0 AM EDT us Jamila Beebe MD HISTORICAL/NON ORDERA BLE LABS Final Result [facility] [address] from Last 3 Months or Most Recently Relevant to Health Maintenance Insurance [place], [place] [facility] Member Subscriber Plan / Payer (Ef fective 2016-Present) Name:Rohini Conner Relation to Subscriber:Self Name:Rohini Conner Payer ID:Not on file Group ID:[id number] Type:Not on file Address: [place] [phone] Care Teams High Lift Operator Relationship Specialty Start Date End Date Jamila Robledo MD [address] [place] [phone] PCP - General Family Medicine 05/02/19
--- OUTSIDE RECORDS SUMMARY | 2024-08-18 19:00 | XMS_ITS | Encounter Summary ---
Author Organization [employer] Address [address] [facility] 7t [place] [address] Care Team Providers Care Tile Molder Name Role Phone Jamila Robledo MD Primary Care Provide r Encounter Details Date Type Department Care Team ([facility] Contact Info) Description 08/18/2024 Orders Only GENERIC EXTERNAL DATA DEPARTMENT Provider, Generic External Data Social History Tobacco Use Types Packs/Day Years [...] Description 09/15/2024 11:15 AM EDT Office Visit [facility] [address] [place] [address] Jamila Robledo MD [address] [place] [address] 09/16/2024 9:30 AM EDT Procedure Visit [address] [address] Jamila Robledo MD [address] [place] [address] 10/10/2024 1:30 PM EDT Office Visit [address] [address] Traci Singh MD [address] [place] [address] [phone] documented as of this encounter Procedures Procedure Name Priority Date/Time Associated Diagnosis Comments US PELVIS TRANSVAGINAL Routine 1:23 PM EST SARS COV2/INFLUENZA A/B AND RSV RNA QL NAAT Routine 08/18/2024 1:07 PM EST CBC WITH AUTO DIFFERENTIAL Routine 08/18/2024 1:07 PM EST MAGNESIUM Routine 08/18/2024 1:07 PM EST COMPREHENSIVE METABOLIC PANEL Routine 08/18/2024 1:07 PM EST documented in this encounter Results * US Pelvis Transvaginal (08/18/2024 1:23 PM EST) Anatomical Region Laterality Modality Pelvis Ultrasound 08/18/2024 1:23 PM EST Narrative 08/18/2024 3:05 PM EST ? [facility] ?[address] ?[place] [address] ? Ultrasound Report ? Signed ? Patient: Conenr,Rohini ?MR#: [id number] ? : 1975 ?Acct:[id number] ? Age/Sex: 49 / F ?ADM Date: 08/18/24 ? Loc: HO.ED ? Attending Dr: ? Ordering Physician: Pina Gruber ?? Date of Service: 08/18/24 ?? Procedure(s): US pelvic and transvaginal ?? Accession Number(s): [id number] ? cc: Jamila Robledo MD; Pina Gruber [...] DD/ 1323 ? TD/TT: 08/18/24 1346 ? Property Management Bookkeeper: MSM ? Procedure Note Guilherme, Image - 08/18/[address] [address] Ultrasound Report Signed Patient: Elham Conner#: [id number] : 1975Acct:[id number] Age/Sex: 49 / FADM Date: 08/18/24 Loc: HO.ED Attending Dr: Ordering Physician: Pina Gruber Date of Service: 08/18/24 Procedure(s): US pelvic and transvaginal Accession Number(s): [id number] cc: Jamila Robledo MD; Pina Gruber EXAMINATION: [...] by: Bird Aguiar MD 08/18/2024 03:02 PM [facility] Dictated By: Bird Aguira MD Signed By: <Electronically signed by Bird Aguiar MD in OV> 08/18/24 1502 DD/ 1323 TD/TT: 08/18/24 1346 Property Management Bookkeeper: EDSON [facility] External Provider IMG US PROCEDURES Final Result * SARS-CoV-2 RNA, Influenza A/B, and RSV RNA, Ql NAAT (08/18/2024 1:07 PM EST) Influenza A PCR NEGATIVE Negative [facility] Influenza B PCR NEGATIVE Negative [facility] Resp Syncy Virus RNA Qual PCR NEGATIVE Negative [facility] SARS COV2 PCR NEGATIVE Negative [facility] Comment:All test results mus t be [...] use by authorized laboratories.Testing performed on the [employer] GeneXpert utilizingreal-time RT-PCR.All SARS CoV2 and positive influenza A/B results arereported to [facility]. 08/18/2024 1:07 PM EST 08/18/2024 1:14 PM EST Generic External Data Provider LAB MICROBIOLOGY - GENERAL ORDERABLES Final Result Performing Organization Address [facility] Co de Phone Number [facility] [address] [place] [phone] * Magnesium (08/18/2024 1:07 PM EST) Magnesium 1.9 1.6 - 2.6 mg/dL [facility] 08/18/2024 1:07 PM EST 08/18/2024 1:14 PM EST Generic External Data Provider LAB BLOOD ORDERAB LES Final Result Performing Organization Address [facility]/ZIP Co de Phone Number [facility] [address] [place] [phone] * (ABNORMAL) Comprehensive Metabolic Panel (08/18/2024 1:07 PM EST) Sodium 140 135 - 145 mmol/L [facility] Potassium 3.1(L) 3.3 - 5.1 mmol/L [facility] Chloride 100 96 - 108 mmol/L [facility] Carbon Dioxide 30(H) 22 - 29 mmol/L [facility] Anion Gap 13 12 - 20 [facility] Urea Nitrogen (BUN) 14 9 - 16 mg/dL [facility] Creatinine, Serum 0.62 0.5 - 1.4 mg/dL [facility] Creatinine Clr Calc Pharmacy 106.3 [facility] Comment:Provided height and weight: 154.94 cm,81.647 kg.eGFR (calculated from the MDRD study equation) and eCrCl(calculated from the Cockcroft-Gault equation) are based ondifferent parameters and may not yield comparable results.If eCrCl result is absurd, please check patient'sheight/weight. Estimated Glomerular Filt Rate >60 [facility] Comment:Chronic Kidney Disea se: Estimated GFR < 60 mL/min/1.77j2Oibpqt Kidney Disease: Estimated GFR < 15 mL/min/1.73m2 Glucose 103 60 - 115 mg/dL [facility] Calcium 9.3 8.4 - 10.2 mg/dL [facility] Bilirubin, Total 0.2 0.0 - 1.0 mg/dL [facility] Aspartate Amino Transferase 26 5 - 31 U/L [facility] Alanine Aminotransferase 37(H) 0 - 31 U/L [facility] Total Protein 7.5 6.5 - 8.0 g/dL [facility] Albumin Level 4.0 3.5 - 5.0 g/dL [facility] Alkaline Phosphatase 87 39 - 117 U/L [facility] 08/18/2024 1:07 PM EST 08/18/2024 1:14 PM EST us Generic External Data Provider LAB BLOOD ORDERAB LES Final Result [facility] [address] [place] [phone] * (ABNORMAL) CBC auto differential (08/18/2024 1:07 PM EST) White Blood Count 6.3 4.8 - 10.8 X10*3/uL [facility] Red Blood Count 4.81 4.20 - 5.50 X10*6/uL [facility] Hemoglobin 13.9 12.0 - 16.0 g/dl [facility] Hematocrit 40.2 37.0 - 47.0 % [facility] Mean Corpuscular Volume 83.6 80.0 - 98.0 fL [facility] Mean Corpuscular Hemoglobin 28.9 27.0 - 33.0 pg [facility] Mean Corpuscular HGB Conc 34.6 31.0 - 35.0 g/dl [facility] Red Cell Distribution Width 13.4 11.0 - 16.0 % [facility] Platelet Count 233 160 - 400 X10*3/uL [facility] Mean Platelet Volume 9.9 9.4 - 12.3 fL [facility] Neutrophils Percent Auto 48.1 45 - 73 % [facility] Imm Gran Pct Auto 0.3 0.0 - 0.4 % [facility] Lymphocytes Percent Auto 34.1 20 - 40 % [facility] Monocytes Percent Auto 7.6 2 - 11 % [facility] Eosinophils Percent Auto 8.8(H) 0 - 4 % [facility] Basophils Percent Auto 1.1 0 - 2 % [facility] NRBC Pct Auto 0.0 0.0 - 0.2 /100WBC [facility] Neutrophils Absolute Auto 3.0 2.0 - 8.3 x10*3/uL [facility] Imm Gran Abs Auto 0.02 0.00 - 0.03 X10*3/uL [facility] Lymphocytes Absolute Auto 2.2 1.2 - 4.9 X10*3/uL [facility] Monocytes Absolute Auto 0.5 0.1 - 1.2 X10*3/uL [facility] Eosinophils Absolute Auto 0.6(H) 0.0 - 0.4 X10*3/uL [facility] Basophils Absolute Auto 0.1 0.0 - 0.2 X10*3/uL [facility] NRBC Abs Auto 0.000 0.0 - 0.012 X10*3/uL [facility] 08/18/2024 1:07 PM EST 08/18/2024 1:14 PM EST us Generic External Data Provider LAB BLOOD ORDERAB LES Final Result Performing Organization Address City/State/[facility] Co de Phone Number [facility] [address] [place] [phone] documented in this encounter Visit Diagnoses Not on filedocumented in this encounter Additional Health Concerns Assessment Noted Time PHQ-9 Depression Total Score: 0 02/06/20 24 2:56 PM EDT documented as of this encounter Care Teams Tile Molder Relationship Specialty Start Date End Date Jamila Robledo MD [address] [place] [address] PCP - General Family Medicine 05/02/19 documented as of this encounter
--- OUTSIDE RECORDS SUMMARY | 2024-08-18 19:00 | XMS_ITS | Encounter Summary ---
Author Organization [employer] Address [address] [facility] 7t [place] [address] Care Team Providers Care Game Preserve Manager Name Role Phone Jamila Robledo MD Primary Care Provide r Encounter Details Date Type Department Care Team (Latest Contact Info) Description 08/18/2024 Travel Social History Tobacco Use Types Packs/Day [...] Description 09/15/2024 11:15 AM EDT Office Visit [address] [address] Jamila Robledo MD [address] [place] [phone] 09/16/2024 9:30 AM EDT Procedure Visit [address] [address] Jamila Robledo MD [address] [place] [address] 10/10/2024 1:30 PM EDT Office Visit [address] [address] Traci Singh MD [address] [place] [phone] documented as of this encounter Visit Diagnoses Not on filedocumented in this encounter Additional Health Concerns Assessment Noted Time PHQ-9 Depression Total Score: 0 02/06/20 24 2:56 PM EDT documented as of this encounter Care Teams Game Preserve Manager Relationship Specialty Start Date End Date Jamila Robledo MD [address] [place] [phone] PCP - General Family Medicine 05/02/19 documented as of this encounter
--- OUTSIDE RECORDS SUMMARY | 2024-08-18 19:00 | XMS_ITS | Encounter Summary ---
Author Organization [employer] Address [address] [facility] 7t [place] [address] Care Team Providers Care Medical Assistant Name Role Phone Jamila Robledo MD Primary Care Provide r Reason for Visit * Reason Onset Date Comments Med Change Request 03/11/2024 Encounter Details Date Type Department Care Team ([facility] Contact Info) Description 03/11/2024 Telephone [facility] [address] [place] [address] Jamila Robledo MD [address] [place] [address] Med Change Request Social History Tobacco Use [...] the past 12 months, has t he [employer], gas, oil or water [employer] threatened to shut off services in your [...] Description 09/15/2024 11:15 AM EDT Office Visit [facility] [address] [place] [phone] Jamila Robledo MD [address] [place] [address] 09/16/2024 9:30 AM EDT Procedure Visit [facility] [address] [place] [address] [phone] Jamila Robledo MD [address] [place] [address] 10/10/2024 1:30 PM EDT Office Visit [facility] [address] [place] [address] Traci Singh MD [address] [place] [address] documented as of this encounter Visit Diagnoses Not on filedocumented in this encounter Additional Health Concerns Assessment Noted Time PHQ-9 Depression Total Score: 0 02/06/20 24 2:56 PM EDT documented as of this encounter Care Teams Medical Assistant Relationship Specialty Start Date End Date Jamila Robledo MD [address] [place], [place] [phone] PCP - General Family Medicine 05/02/19 documented as of this encounter
--- OUTSIDE RECORDS SUMMARY | 2024-08-18 19:00 | XMS_ITS | Encounter Summary ---
Author Organization [employer] Address [address] [facility] 7t [place] [address] Care Team Providers Care Fur Scraper Name Role Phone Jamila Robledo MD Primary Care Provide r Reason for Visit * Reason Onset Date Comments Results 08/13/2024 Encounter Details Date Type Department Care Team ([facility] Contact Info) Description 08/13/2024 Telephone [facility] [address] [place], [place] [phone] Jamila Robledo MD [address] [place] [address] Results Social History Tobacco Use Types Packs/Day [...] encounter Miscellaneous Notes * Telephone Encounter - Ella Doan RN - 08/13/2024 4:11 PM EST Please see recent encounter from Dr Bishop- this task was completed. * Telephone Encounter - Alberto dAan - 08/13/2024 3:08 PM EST TC from pt requesting call back regarding Results. Type of results: Basic Metabolic Panel , Ferritin , Iron , TSH , CBC Date when done: 08/13/2024 Facility: [facility] documented in this encounter Plan of Treatment Upcoming Encounters Date Type Department Care Team (Late st Contact Info) Description 09/15/2024 11:15 AM EDT Office Visit [facility] [address] [place] [phone] Jamila Robledo MD [address] [place] [address] 09/16/2024 9:30 AM EDT Procedure Visit [facility] [address] [place] [address] Jamila Robledo MD [address] [place] [phone] 10/10/2024 1:30 PM EDT Office Visit [facility] [address] [place] [address] [phone] Traci Singh MD [address] [place] [phone] documented as of this encounter Visit Diagnoses Not on filedocumented in this encounter Additional Health Concerns Assessment Noted Time PHQ-9 Depression Total Score: 0 02/06/20 24 2:56 PM EDT documented as of this encounter Care Teams Fur Scraper Relationship Specialty Start Date End Date Jamila Robledo MD [address] [place] [phone] PCP - General Family Medicine 05/02/19 documented as of this encounter
--- OUTSIDE RECORDS SUMMARY | 2024-08-18 19:00 | XMS_ITS | Encounter Summary ---
Author Organization [employer] Address [address] [facility] [address] 7t [place] [address] Care Team Providers Care Milk Deliverer Name Role Phone Jamila Robledo MD Primary Care Provide r Reason for Visit * Reason Comments Med Refill Encounter Details Date Type Department Care Team ([facility] Contact Info) Description 08/18/2024 Refill [facility] [address] [place] [address] Jamila Robledo MD [address] [place] [address] Acute non-recurrent frontal sinusitis Social History Tobacco [...] the past 12 months, has t he [employer], gas, oil or water [employer] threatened to shut off services in your [...] 09/15/2024 11:15 AM EDT Office Visit [facility] [address] [place] [address] Jamila Robledo MD [address] [place] [address] 09/16/2024 9:30 AM EDT Procedure Visit [address] [address] Jamila Robledo MD [address] [place] [address] 10/10/2024 1:30 PM EDT Office Visit [address] [address] Traci Singh MD [address] [place] [address] documented as of this encounter Visit Diagnoses Diagnosis Acute non-recurrent frontal sinusitis documented in this encounter Additional Health Concerns Assessment Noted Time PHQ-9 Depression Total Score: 0 02/06/20 24 2:56 PM EDT documented as of this encounter Care Teams Milk Deliverer Relationship Specialty Start Date End Date Jamila Robledo MD [address] [place] [address] PCP - General Family Medicine 05/02/19 documented as of this encounter
[2024-08-19 13:15] LABS: CT PCR NOT DETECTED (Not Detect.); NG PCR NOT DETECTED (Not Detect.)
== END 2024-08-18 16:40 | disposition home or self-care (01) ==
LOC: HO.HHCLNP 16:39
PROVIDERS: Visit Provider Nurse Practitioner
DX: Z13.89 Encounter for screening for other disorder (principal)
CPT/HCPCS: 87491; 87591

== ENCOUNTER 2024-08-18 16:44 | Outpatient (REF) | payer OTHER, SELFPAY ==
[2024-08-19 11:03] LABS: Bacterial Vaginosis PCR POSITIVE (Negative); Candida Group PCR NOT DETECTED (Not Detect); Candida glab krusei PCR NOT DETECTED (Not Detect); Trichomonas vaginalis PCR NOT DETECTED (Not Detect)
== END 2024-08-18 16:45 | disposition home or self-care (01) ==
LOC: HO.LNP 16:44
PROVIDERS: Visit Provider Nurse Practitioner
DX: Z13.89 Encounter for screening for other disorder (principal)
CPT/HCPCS: 81515

== ENCOUNTER 2024-08-29 14:04 | Outpatient (REF) | payer OTHER, SELFPAY ==
--- NOTE | ~2024-08-29 | CT_ITS ---
EXAMINATION: CT SINUS WITHOUT CONTRAST CLINICAL INFORMATION: Sinonasal polyps. COMPARISON: None available. TECHNIQUE: Spiral noncontrast CT of the paranasal sinuses and maxillofacial region was performed in axial plane. Examination was carried out from the inferior maxilla to the mid temporal parietal bones, just above the petrous ridges. Sagittal, coronal, and thin section axial reformatted images were reconstructed from the axial data set. This CT examination was performed using dose optimization techniques as appropriate, variously including the following: *Automated exposure control *Adjustment of mA and/or kV according to patient size (this includes techniques or standardized protocols for targeted exams where dose is matched to indication/reason for exam; i.e. extremities or head) *Use of iterative reconstruction technique FINDINGS: POSTOPERATIVE FINDINGS: None apparent. MAXILLARY DENTAL FINDINGS: No active disease identified. No periapical lucencies. NASAL CAVITY: Moderate polypoid mucosal thickening throughout the bony and membranous nasal septum. This is particularly present in the right anterior nasopharynx where there is significant loss of airspace. There is also significant narrowing of the right greater than left middle meatus due to polyploid thickening. There is partial effacement of the superior meatus on the right. There is rightward deviation of the nasal septum with a tiny spur. TURBINATES: The inferior turbinates have normal morphology and demonstrate mild to moderate cortical thickening bilaterally. The middle turbinates demonstrate grossly normal morphology, and demonstrate mild to moderate polypoid mucosal thickening. The Superior turbinates demonstrate mild to moderate polypoid mucosal thickening. MAXILLARY SINUSES: Moderate bilateral polypoid mucosal thickening throughout both maxillary antra. Right maxillary ostia is opacified by mucosal thickening. The left maxillary ostia is severely narrowed by mucosal thickening however a thin air channel does remain patent. ETHMOID SINUSES: Moderate scattered mucosal thickening and fluid present in both the anterior and posterior ethmoid sinuses. FRONTAL SINUSES: Mild dependent mucosal thickening bilaterally. More significant mucosal thickening narrowing both frontal recesses. SPHENOID SINUSES: Mild to moderate left greater than right mucosal thickening present. Both sphenoethmoidal recesses appear opacified by mucosal thickening. PREOPERATIVE ANATOMY: There are type III cribriform plates. They are symmetric. The fovea ethmoidalis and lateral lamella are symmetric bilaterally. The anterior ethmoid canals are surrounded by air bilaterally. ADDITIONAL FINDINGS: Globes and orbital contents appear normal. Limited imaging of the intracranial contents demonstrates no abnormality. No extracranial soft tissue abnormalities. Imaged mastoids and tympanic cavities are normally aerated. There is aeration of the petrous apices bilaterally. Normal-appearing TM joints. CT/CT sinus wo IV con IMPRESSION: 1. Moderate polypoid type mucosal thickening throughout the nasal cavity, with significant narrowing of the right greater than left superior, inferior, and middle meati. 2. Right nasal septal deviation with tiny spur. 3. Moderate polypoid mucosal thickening throughout both maxillary sinuses. The right maxillary ostium is obstructed. The left maxillary ostium is severely narrowed. 4. Moderate scattered polypoid mucosal thickening and fluid throughout the anterior and posterior ethmoid sinuses. 5. Mild narrowing of the frontal recesses bilaterally. 6. Mild to moderate left greater than right mucosal thickening in the sphenoid sinuses. Both sphenoethmoidal recesses are obstructed. Electronically signed by: Hector Rome MD 08/29/2024 03:28 PM EDT
--- OUTSIDE RECORDS SUMMARY | 2024-08-29 15:44 | XMS_ITS | Encounter Summary ---
Author Organization [employer] Address 75 [facility] 7t [place] [address] Care Team Providers Care Manager Library Name Role Phone Jamila Robledo MD Primary Care Provide r Reason for Visit * Reason Comments Med Change Request Encounter Details Date Type Department Care Team ([facility] Contact Info) Description 06/28/2023 Refill [facility] [address] [place], [place] [phone] Ruth Costello FNP [address] [place] [address] Upper back pain on left side Social [...] Description 09/15/2024 11:15 AM EDT Office Visit [facility] [address] [place] [phone] Jamila Robledo MD [address] [place] [address] 09/16/2024 9:30 AM EDT Procedure Visit [facility] [address] [place] [phone] Jamila Robledo MD [address] [place] [address] 10/10/2024 1:30 PM EDT Office Visit [address] [address] Traci Singh MD [address] [place] [phone] documented as of this encounter Visit Diagnoses Diagnosis Upper back pain on left side documented in this encounter Additional Health Concerns Assessment Noted Time PHQ-9 Depression Total Score: 9 11/04/19 23 2:36 PM EDT documented as of this encounter Care Teams Manager Library Relationship Specialty Start Date End Date Jamila Robledo MD [address] [place] [phone] PCP - General Family Medicine 05/02/19 documented as of this encounter
--- OUTSIDE RECORDS SUMMARY | 2024-08-29 15:44 | XMS_ITS | Encounter Summary ---
Author Organization [employer] Address [address] [facility] [facility] [address] [place] [address] Care Team Providers Care Bods Developer Name Role Phone Jamila Robledo MD Primary Care Provide r Reason for Visit * Reason Onset Date Comments Med Refill 08/13/2024 Encounter Details Date Type Department Care Team ([facility] Contact Info) Description 08/13/2024 Refill [facility] [address] [place] [address] Jamila Robledo MD [address] [place] [address] Social History Tobacco Use Types Packs/Day Years [...] t he electric, gas, oil or water [employer] threatened to shut off services in your [...] Office Visit [facility] [address] [place] [phone] Jamila Robledo MD [address] [place] [phone] 09/16/2024 9:30 AM EDT Procedure Visit [address] [address] Jamila Robledo MD [address] [place] [phone] 10/10/2024 1:30 PM EDT Office Visit [address] [address] Traci Singh MD [address] [place] [address] [phone] documented as of this encounter Visit Diagnoses Not on filedocumented in this encounter Additional Health Concerns Assessment Noted Time PHQ-9 Depression Total Score: 0 02/06/20 24 2:56 PM EDT documented as of this encounter Care Teams Bods Developer Relationship Specialty Start Date End Date Jamila Robledo MD [address] [place] [address] PCP - General Family Medicine 05/02/19 documented as of this encounter
--- OUTSIDE RECORDS SUMMARY | 2024-08-29 15:44 | XMS_ITS | Encounter Summary ---
Author Organization [employer] Address [address] [place] [address] 7t [place] [address] Care Team Providers Care Sports Journalist Name Role Phone Jamila Robledo MD Primary Care Provide r Reason for Referral * Consultation (Routine) - Authorized Specialty Diagnoses / Procedures Referred By Erik heath Referred To Contact Obstetrics and Gynecology Diagnoses Abnormal vaginal bleeding Aide Bishop MD [address] [place] [address] Phone: tel: fax: [facility] [address] 5th Floor [address] (Main Hospital Entrance) [place], [place] Phone: tel: fax: Referral ID Status Reason Start Date Expiration Date Visits Requested Visits Authorized [id number] Authorized Specialty Services Required 08/13/2024 08/13/2025 1 1 * Imaging (Routine) - Closed Specialty Diagnoses / Procedures Referred By Erik t Referred To Contact Radiology Diagnoses Abnormal vaginal bleeding Procedures US Pelvis Transvaginal Aide Bishop MD [address] [place] [address] Phone: tel: fax: [facility] [address] [place] [address] Phone: tel: fax: Referral ID Status Reason Start Date Expiration Date Visits Re quested Visits Authorized [id number] Closed 08/13/2024 08/13/2025 1 1 Reason for Visit * Reason Comments Vaginal Bleeding Encounter Details Date Type Department Care Team ([facility] st Contact Info) Description 08/13/2024 9:20 AM EST Office Visit [facility] [address] [place] [address] Aide Bishop MD [address] [place] [address] Abnormal vaginal bleeding (Primary Dx) Social History [...] t he electric, gas, oil or water [employer] threatened to shut off services in your [...] substances. Is not currently established with an SIGNAL MANAGER. She reports she has had a [...] bleeding x2 days. Not currently established with SIGNAL MANAGER. Abdominal exam benign. -ordered CBC, TSH, iron panel, and BMP. -ordered transvaginal US -referred to SIGNAL MANAGER -prescribed medroxyPROGESTERone 5 mg, TID x5days Relevant Medications medroxyPROGESTERone (Provera) 5 MG tablet Other Relevant Orders CBC auto differential TSH with Reflex to Free T4 Iron And Total Iron Binding Capacity Ferritin US Pelvis Transvaginal Basic Metabolic Panel Referral to Obstetrics / Gynecology -No evidence of acute disease process. Etiology unknown. Symptoms moderate. Hemodynamically stable. -Ordered labs, US and referred to SIGNAL MANAGER. -ER precautions discussed. -Seek medical attention for worsening symptoms. I, Akash Donohue, am serving as a scribe to document services personally performed by Dr. Green, based on the patient's response to questions by provider and providers statements to me. documented in this encounter Miscellaneous Notes * Assessment & Plan Note - Akahs Donohue - 08/13/2024 9:46 AM ESTAssociated Problem(s): Abnormal vaginal bleeding (a set of twins), irregular periods x1.5 yrs and amenorrhea the last 5 months. Heavy vaginal bleeding x2 days. Not currently established with SIGNAL MANAGER. Abdominal exam benign. -ordered CBC, TSH, iron panel, and BMP. -ordered transvaginal US -referred to SIGNAL MANAGER -prescribed medroxyPROGESTERone 5 mg, TID x5days documented in this encounter Plan of Treatment Upcoming Encounters Date Type Department Care Team (Late st Contact Info) Description 09/15/2024 11:15 AM EDT Office Visit [address] [address] Jamila Robledo MD [address] [place] [address] 09/16/2024 9:30 AM EDT Procedure Visit [address] [address] Jamila Robledo MD [address] [place] [address] 10/10/2024 1:30 PM EDT Office Visit [address] [address] Traci Singh MD [address] [place] [address] Scheduled Orders Name Type Priority Associated Diagnoses [...] EST) Sodium 141 135 - 145 mmol/L [facility] Potassium 3.2(L) 3.3 - 5.1 mmol/L [facility] Chloride 104 96 - 108 mmol/L [facility] Carbon Dioxide 29 22 - 29 mmol/L [facility] Anion Gap 11(L) 12 - 20 [facility] Urea Nitrogen (BUN) 14 9 - 16 mg/dL [facility] Creatinine, Serum 0.53 0.5 - 1.4 mg/dL [facility] Estimated Glomerular Filt Rate >60 [facility] Comment:Chronic Kidney Disea se: Estimated GFR < 60 mL/min/[id number] Kidney Disease: Estimated GFR < 15 mL/min/1.73m2 Glucose 114 60 - 115 mg/dL [facility] Calcium 8.8 8.4 - 10.2 mg/dL [facility] Blood Venous blood specimen / Unknown 08/13/2024 10:02 AM EST 08/13/2024 11:08 AM EST us Aide Bishop MD LAB BLOOD ORDERABLES Final Result [facility] [address] [place] [address] [phone] * Ferritin (08/13/2024 10:02 AM EST) Ferritin 155 10 - 250 ng/mL [facility] Blood Venous blood specimen / Unknown 08/13/2024 10:02 AM EST 08/13/2024 11:08 AM EST Aide Bishop MD LAB BLOOD ORDERABLES Final Result [facility] [address] [place] [phone] * Iron And Total Iron Binding Capacity (08/13/2024 10:02 AM EST) Iron 99 30 - 160 mcg/dL [facility] Total Iron Binding Capacity 314 228 - 428 mcg/dL [facility] Percent Iron Saturation 32 15 - 50 % [facility] Unsaturated Iron Binding 215 ug/dL [facility] Blood Venous blood specimen / Unknown 08/13/2024 10:02 AM EST 08/13/2024 11:08 AM EST Aide Bishop MD LAB BLOOD ORDERABLES Final Result Performing Organization Address City/[facility]/ZIP Co de Phone Number [facility] [address] [place] [phone] * TSH with Reflex to Free T4 (08/13/2024 10:02 AM EST) TSH reflex Free T4 0.63 0.32 - 4.0 uIU/mL [facility] Blood 08/13/2024 10:0 2 AM EST 08/13/2024 11:08 AM EST Aide Bishop MD LAB BLOOD ORDERABLES Final Result Performing Organization Address City/[facility]/ZIP Co de Phone Number [facility] [address] [place] [phone] * (ABNORMAL) CBC auto differential (08/13/2024 10:02 AM EST) White Blood Count 4.9 4.8 - 10.8 X10*3/uL [facility] Red Blood Count 5.00 4.20 - 5.50 X10*6/uL [facility] Hemoglobin 14.3 12.0 - 16.0 g/dl [facility] Hematocrit 42.4 37.0 - 47.0 % [facility] Mean Corpuscular Volume 84.8 80.0 - 98.0 fL [facility] Mean Corpuscular Hemoglobin 28.6 27.0 - 33.0 pg [facility] Mean Corpuscular HGB Conc 33.7 31.0 - 35.0 g/dl [facility] Red Cell Distribution Width 13.7 11.0 - 16.0 % [facility] Platelet Count 240 160 - 400 X10*3/uL [facility] Mean Platelet Volume 10.1 9.4 - 12.3 fL [facility] Neutrophils Percent Auto 47.6 45 - 73 % [facility] Imm Gran Pct Auto 0.2 0.0 - 0.4 % [facility] Lymphocytes Percent Auto 33.1 20 - 40 % [facility] Monocytes Percent Auto 9.9 2 - 11 % [facility] Eosinophils Percent Auto 8.2(H) 0 - 4 % [facility] Basophils Percent Auto 1.0 0 - 2 % [facility] NRBC Pct Auto 0.0 0.0 - 0.2 /100WBC [facility] Neutrophils Absolute Auto 2.3 2.0 - 8.3 x10*3/uL [facility] Imm Gran Abs Auto 0.01 0.00 - 0.03 X10*3/uL [facility] Lymphocytes Absolute Auto 1.6 1.2 - 4.9 X10*3/uL [facility] Monocytes Absolute Auto 0.5 0.1 - 1.2 X10*3/uL [facility] Eosinophils Absolute Auto 0.4 0.0 - 0.4 X10*3/uL [facility] Basophils Absolute Auto 0.1 0.0 - 0.2 X10*3/uL [facility] NRBC Abs Auto 0.000 0.0 - 0.012 X10*3/uL [facility] Blood Venous blood specimen / Unknown 08/13/2024 10:02 AM EST 08/13/2024 11:08 AM EST us Aide Bishop MD LAB BLOOD ORDERABLES Final Result Performing Organization Address City/State/[facility] Co de Phone Number [facility] [address] [place] [phone] documented in this encounter Visit Diagnoses Diagnosis Abnormal vaginal bleeding- Primary Other specified noninflammatory disorder of vagina documented in this encounter Additional Health Concerns Assessment Noted Time PHQ-9 Depression Total Score: 0 02/06/20 24 2:56 PM EDT documented as of this encounter Care Teams Sports Journalist Relationship Specialty Start Date End Date Jamila Robledo MD [address] [place] [address] PCP - General Family Medicine 05/02/19 documented as of this encounter
--- OUTSIDE RECORDS SUMMARY | 2024-08-29 15:44 | XMS_ITS | Encounter Summary ---
Author Organization [employer] Address [address] [facility] 7t [place] [address] Care Team Providers Care Second Language Tutor Name Role Phone Jamila Robledo MD Primary [...] your housing situation today? I have bay acstelan 04/06/[address] you li [...] Description 09/15/2024 11:15 AM EDT Office Visit [address] [address] Jamila Robledo MD [address] [place] [address] 09/16/2024 9:30 AM EDT Procedure Visit [address] [address] Jamila Robledo MD [address] [place] [address] 10/10/2024 1:30 PM EDT Office Visit [address] [address] Traci Singh MD [address] [place] [address] documented as of this encounter Visit Diagnoses Not on filedocumented in this encounter Additional Health Concerns Assessment Noted Time PHQ-9 Depression Total Score: 0 02/06/20 24 2:56 PM EDT documented as of this encounter Care Teams Second Language Tutor Relationship Specialty Start Date End Date Jamila Robledo MD [address] [place] [phone] PCP - General Family Medicine 05/02/19 documented as of this encounter
--- OUTSIDE RECORDS SUMMARY | 2024-08-29 15:44 | XMS_ITS | Encounter Summary ---
Author Organization [employer] Address [address] [facility] [address] 7[address] [place] [address] Care Team Providers Care [employer] And Camping [employer] Manager Name Role Phone Jamila Robledo MD Primary Care Provide r Encounter Details Date Type Department Care Team ([facility] Contact Info) Description 08/13/2024 Orders Only [facility] [address] [place] [address] [phone] Aide Bishop MD [address] [place] [address] Hypokalemia Social History Tobacco Use Types Packs/Day [...] the past 12 months, has t he [employer], gas, oil or water [employer] threatened to shut off services in [...] Description 09/15/2024 11:15 AM EDT Office Visit [address] [address] Jamila Robledo MD [address] [place] [address] 09/16/2024 9:30 AM EDT Procedure Visit [address] [address] Jamila Robledo MD [address] [place] [address] 10/10/2024 1:30 PM EDT Office Visit [address] [phone] Traci Singh MD [address] [place] [address] documented as of this encounter Visit Diagnoses Diagnosis Hypokalemia Hypopotassemia documented in this encounter Additional Health Concerns Assessment Noted Time PHQ-9 Depression Total Score: 0 02/06/20 24 2:56 PM EDT documented as of this encounter Care Teams [employer] Manager Relationship Specialty Start Date End Date Jamila Robledo MD [address] [place] [address] PCP - General Family Medicine 05/02/19 documented as of this encounter
--- OUTSIDE RECORDS SUMMARY | 2024-08-29 15:44 | XMS_ITS | Encounter Summary ---
Author Organization [employer] Address [address] [facility] 7t [place] [address] Care Team Providers Care Talent Manager Name Role Phone Jamila Robledo MD Primary Care Provide r Encounter Details Date Type Department Care Team ([facility] Contact Info) Description 08/21/2024 Orders Only [facility] [address] [place], [place] [phone] Leslie Prees NP [address] [place] [address] Bacterial vaginosis (Primary Dx) Social History Tobacco Use Types [...] the past 12 months, has t he [employer], gas, oil or water [employer] threatened to shut off services in your [...] Description 09/15/2024 11:15 AM EDT Office Visit [address] [address] Jamila Robledo MD [address] [place] [address] 09/16/2024 9:30 AM EDT Procedure Visit [address] [address] Jamila Robledo MD [address] [place] [address] 10/10/2024 1:30 PM EDT Office Visit [address] [address] Traci Singh MD [address] [place] [address] documented as of this encounter Visit Diagnoses Diagnosis Bacterial vaginosis- Primary Unspecified vaginitis and vulvovaginitis documented in this encounter Additional Health Concerns Assessment Noted Time PHQ-9 Depression Total Score: 0 02/06/20 24 2:56 PM EDT documented as of this encounter Care Teams Talent Manager Relationship Specialty Start Date End Date Jamila Robledo MD [address] [place] [address] PCP - General Family Medicine 05/02/19 documented as of this encounter
--- OUTSIDE RECORDS SUMMARY | 2024-08-29 15:44 | XMS_ITS | Encounter Summary ---
Author Organization [employer] Address [address] 7[address] [place] [address] Care Team Providers Care Brass Reclaimer Name Role Phone Jamila Robledo MD Primary Care Provide r Reason for Visit * Reason Comments Med Refill Encounter Details Date Type Department Care Team ([facility] Contact Info) Description 08/18/2024 Refill [facility] [address] [place] [address] Jamila Robledo MD [address] [place] [address] Acute non-recurrent frontal sinusitis Social History Tobacco [...] the past 12 months, has t he [employer], gas, oil or water [employer] threatened to shut off services in your [...] 09/15/2024 11:15 AM EDT Office Visit [facility] [address] [place] [address] Jamila Robledo MD [address] [place] [address] 09/16/2024 9:30 AM EDT Procedure Visit [address] [address] Jamila Robledo MD [address] [place] [address] 10/10/2024 1:30 PM EDT Office Visit [address] [address] Traci Singh MD [address] [place] [address] documented as of this encounter Visit Diagnoses Diagnosis Acute non-recurrent frontal sinusitis documented in this encounter Additional Health Concerns Assessment Noted Time PHQ-9 Depression Total Score: 0 02/06/20 24 2:56 PM EDT documented as of this encounter Care Teams Brass Reclaimer Relationship Specialty Start Date End Date Jamila Robledo MD [address] [place] [address] PCP - General Family Medicine 05/02/19 documented as of this encounter
--- OUTSIDE RECORDS SUMMARY | 2024-08-29 15:44 | XMS_ITS | Encounter Summary ---
Author Organization [employer] Address [address] [facility] 7t [place] [address] Care Team Providers Care Director Housekeeping Name Role Phone Jamila Robledo MD Primary Care Provide r Encounter Details Date Type Department Care Team ([facility] Contact Info) Description 08/29/2024 Orders Only [facility] External Provider, [facility] Social History Tobacco Use Types Packs/Day Years [...] 09/15/2024 11:15 AM EDT Office Visit [facility] [address] [place] [phone] Jamila Robledo MD [address] [place] [address] 09/16/2024 9:30 AM EDT Procedure Visit [address] [address] Jamila Robledo MD [address] [place] [phone] 10/10/2024 1:30 PM EDT Office Visit [address] [address] Traci Singh MD [address] [place] [phone] documented as of this encounter Procedures Procedure Name Priority Date/Time Associated Diagnosis Comments CT SINUS WO CONTRAST Routine 08/29/2024 2:17 PM EDT documented in this encounter Results * CT Sinus w/o Contrast (08/29/2024 2:17 PM EDT) Anatomical Region Laterality Modality Computed Tomogra phy 08/29/2024 2:17 PM EDT Narrative 08/29/2024 3:33 PM EDT ? [facility] ?[address] ?[place] [address] ? CT Scan Report ? Signed ? Patient: Conner,Rohini ?MR#: [id number] ? : 1975 ?Acct:[id number] ? Age/Sex: 49 / F ?ADM Date: 08/29/24 ? Loc: HO.CT ? Attending Dr: James Willett ? Ordering Physician: James Willett ?? Date of Service: 08/29/24 ?? Procedure(s): CT sinus wo IV con ?? Accession Number(s): [id number] ? cc: Jamila Robledo MD; James Willett ? Report Number: ?? [id number]: Total DLP = ??127.00 mGy-cm ?? EXAMINATION: ?? CT SINUS WITHOUT CONTRAST ? CLINICAL INFORMATION: ?? Sinonasal polyps. ? COMPARISON: ?? None available. ? TECHNIQUE: ?? Spiral noncontrast CT of the paranasal sinuses and maxillofacial region ?? was performed in axial plane. Examination was carried out from the ?? inferior maxilla to the mid temporal parietal bones, just above the ?? petrous ridges. Sagittal, coronal, and thin section axial reformatted ?? images were reconstructed from the axial data set. ? This CT examination was performed using dose optimization techniques as ?? appropriate, variously including the following: ?? *Automated exposure control ?? *Adjustment of mA and/or kV according to patient size (this includes ?? techniques or standardized protocols for targeted exams where dose is ?? matched to indication/reason for exam; i.e. extremities or head) ?? *Use of iterative reconstruction technique ? FINDINGS: ? POSTOPERATIVE FINDINGS: ?? None apparent. ? MAXILLARY DENTAL FINDINGS: ?? No active disease identified. No periapical lucencies. ? NASAL CAVITY: ?? Moderate polypoid mucosal thickening throughout the bony and membranous ?? nasal septum. This is particularly present in the right anterior ?? nasopharynx where there is significant loss of airspace. There is also ?? significant narrowing of the right greater than left middle meatus due ?? to polyploid thickening. ?? There is partial effacement of the superior meatus on the right. ?? There is rightward deviation of the nasal septum with a tiny spur. ? TURBINATES: ?? The inferior turbinates have normal morphology and demonstrate mild to ?? moderate cortical thickening bilaterally. ?? The middle turbinates demonstrate grossly normal morphology, and ?? demonstrate mild to moderate polypoid mucosal thickening. ?? The Superior turbinates demonstrate mild to moderate polypoid mucosal ?? thickening. ? MAXILLARY SINUSES: ?? Moderate bilateral polypoid mucosal thickening throughout both ?? maxillary antra. ?? Right maxillary ostia is opacified by mucosal thickening. ?? The left maxillary ostia is severely narrowed by mucosal thickening ?? however a thin air channel does remain patent. ? ETHMOID SINUSES: ?? Moderate scattered mucosal thickening and fluid present in both the ?? anterior and posterior ethmoid sinuses. ? FRONTAL SINUSES: ?? Mild dependent mucosal thickening bilaterally. ?? More significant mucosal thickening narrowing both frontal recesses. ? SPHENOID SINUSES: ?? Mild to moderate left greater than right mucosal thickening present. ?? Both sphenoethmoidal recesses appear opacified by mucosal thickening. ? PREOPERATIVE ANATOMY: ?? There are type III cribriform plates. They are symmetric. ?? The fovea ethmoidalis and lateral lamella are symmetric bilaterally. ?? The anterior ethmoid canals are surrounded by air bilaterally. ? ADDITIONAL FINDINGS: ?? Globes and orbital contents appear normal. ?? Limited imaging of the intracranial contents demonstrates no ?? abnormality. ?? No extracranial soft tissue abnormalities. ?? Imaged mastoids and tympanic cavities are normally aerated. ?? There is aeration of the petrous apices bilaterally. ?? Normal-appearing TM joints. ? CT/CT sinus wo IV con ?? IMPRESSION: ?? 1. Moderate polypoid type mucosal thickening throughout the nasal ?? cavity, with significant narrowing of the right greater than left ?? superior, inferior, and middle meati. ?? 2. Right nasal septal deviation with tiny spur. ?? 3. Moderate polypoid mucosal thickening throughout both maxillary ?? sinuses. The right maxillary ostium is obstructed. The left maxillary ?? ostium is severely narrowed. ?? 4. Moderate scattered polypoid mucosal thickening and fluid throughout ?? the anterior and posterior ethmoid sinuses. ?? 5. Mild narrowing of the frontal recesses bilaterally. ?? 6. Mild to moderate left greater than right mucosal thickening in the ?? sphenoid sinuses. Both sphenoethmoidal recesses are obstructed. ? Electronically signed by: ??Hector Rome MD ??08/29/2024 03:28 PM EDT RP ? Dictated By: ?Hector Rome MD ? Signed By: ?<Electronically signed by Hector Rome MD in OV> ?08/29/24 1528 ? DD/ 1417 ? TD/TT: 08/29/24 1440 ? Hand Scraper: ? Procedure Note Donotuseinterpreter, Image - 08/29/[address] [place] [address] [address] Scan Report Signed Patient: Elham Conner#: [id number] : 1975Acct:[id number] Age/Sex: 49 / FADM Date: 08/29/24 Loc: HO.CT Attending Dr: James Willett Ordering Physician: James Willett Date of Service: 08/29/24 Procedure(s): CT sinus wo IV con Accession Number(s): [id number] cc: Jamila Robledo MD; James Willett Report Number: [id number]: Total DLP = 127.00 mGy-cm EXAMINATION: CT SINUS WITHOUT CONTRAST CLINICAL INFORMATION: Sinonasal polyps. COMPARISON: None available. TECHNIQUE: Spiral noncontrast CT of the paranasal sinuses and maxillofacial region was performed in axial plane. Examination was carried out from the inferior maxilla to the mid temporal parietal bones, just above the petrous ridges. Sagittal, coronal, and thin section axial reformatted images were reconstructed from the axial data set. This CT examination was performed using dose optimization techniques as appropriate, variously including the following: *Automated exposure control *Adjustment of mA and/or kV according to patient size (this includes techniques or standardized protocols for targeted exams where dose is matched to indication/reason for exam; i.e. extremities or head) *Use of iterative reconstruction technique FINDINGS: POSTOPERATIVE FINDINGS: None apparent. MAXILLARY DENTAL FINDINGS: No active disease identified. No periapical lucencies. NASAL CAVITY: Moderate polypoid mucosal thickening throughout the bony and membranous nasal septum. This is particularly present in the right anterior nasopharynx where there is significant loss of airspace. There is also significant narrowing of the right greater than left middle meatus due to polyploid thickening. There is partial effacement of the superior meatus on the right. There is rightward deviation of the nasal septum with a tiny spur. TURBINATES: The inferior turbinates have normal morphology and demonstrate mild to moderate cortical thickening bilaterally. The middle turbinates demonstrate grossly normal morphology, and demonstrate mild to moderate polypoid mucosal thickening. The Superior turbinates demonstrate mild to moderate polypoid mucosal thickening. MAXILLARY SINUSES: Moderate bilateral polypoid mucosal thickening throughout both maxillary antra. Right maxillary ostia is opacified by mucosal thickening. The left maxillary ostia is severely narrowed by mucosal thickening however a thin air channel does remain patent. ETHMOID SINUSES: Moderate scattered mucosal thickening and fluid present in both the anterior and posterior ethmoid sinuses. FRONTAL SINUSES: Mild dependent mucosal thickening bilaterally. More significant mucosal thickening narrowing both frontal recesses. SPHENOID SINUSES: Mild to moderate left greater than right mucosal thickening present. Both sphenoethmoidal recesses appear opacified by mucosal thickening. PREOPERATIVE ANATOMY: There are type III cribriform plates. They are symmetric. The fovea ethmoidalis and lateral lamella are symmetric bilaterally. The anterior ethmoid canals are surrounded by air bilaterally. ADDITIONAL FINDINGS: Globes and orbital contents appear normal. Limited imaging of the intracranial contents demonstrates no abnormality. No extracranial soft tissue abnormalities. Imaged mastoids and tympanic cavities are normally aerated. There is aeration of the petrous apices bilaterally. Normal-appearing TM joints. CT/CT sinus wo IV con IMPRESSION: 1. Moderate polypoid type mucosal thickening throughout the nasal cavity, with significant narrowing of the right greater than left superior, inferior, and middle meati. 2. Right nasal septal deviation with tiny spur. 3. Moderate polypoid mucosal thickening throughout both maxillary sinuses. The right maxillary ostium is obstructed. The left maxillary ostium is severely narrowed. 4. Moderate scattered polypoid mucosal thickening and fluid throughout the anterior and posterior ethmoid sinuses. 5. Mild narrowing of the frontal recesses bilaterally. 6. Mild to moderate left greater than right mucosal thickening in the sphenoid sinuses. Both sphenoethmoidal recesses are obstructed. Electronically signed by: Hector Rome MD 08/29/2024 03:28 PM EDT RP Dictated By: Hector Rome MD Signed By: <Electronically signed by Hector Rome MD in OV> 08/29/24 1528 DD/ 1417 TD/TT: 08/29/24 1440 Hand Scraper: [facility] External Provider IMG CT PROCEDURES Final Result documented in this encounter Visit Diagnoses Not on filedocumented in this encounter Additional Health Concerns Assessment Noted Time PHQ-9 Depression Total Score: 0 02/06/20 24 2:56 PM EDT documented as of this encounter Care Teams Director Housekeeping Relationship Specialty Start Date End Date Jamila Robledo MD [address] [place] [phone] PCP - General Family Medicine 05/02/19 documented as of this encounter
--- OUTSIDE RECORDS SUMMARY | 2024-08-29 15:44 | XMS_ITS | Encounter Summary ---
Author Organization [employer] Address [address] [facility] 7t [place] [address] Care Team Providers Care Talent Acquisition Assistant Name Role Phone Jamila Robledo MD Primary Care Provide r Reason for Visit * Reason Onset Date Comments Nurse Triage 08/18/2024 Encounter Details Date Type Department Care Team ([facility] Contact Info) Description 08/18/2024 Telephone [facility] [address] [place], [place] [phone] Jamila Robledo MD [address] [place] [address] Nurse Triage Social History Tobacco Use Types [...] t he electric, gas, oil or water Mr Banana threatened to shut off services in your [...] center on 08/13 and has referral for [employer], order for U/S and some labs ordered. [...] 3 days The caller accepted this outcome. [phone] documented in this encounter Plan of Treatment Upcoming Encounters Date Type Department Care Team (Late st Contact Info) Description 09/15/2024 11:15 AM EDT Office Visit [facility] [address] [place] [phone] Jamila Robledo MD [address] [place] [phone] 09/16/2024 9:30 AM EDT Procedure Visit [facility] [address] [place] [address] Jamila Robledo MD [address] [place] [phone] 10/10/2024 1:30 PM EDT Office Visit [facility] [address] [place] [address] Traci Singh MD [address] [place] [address] documented as of this encounter Visit Diagnoses Not on filedocumented in this encounter Additional Health Concerns Assessment Noted Time PHQ-9 Depression Total Score: 0 02/06/20 24 2:56 PM EDT documented as of this encounter Care Teams Talent Acquisition Assistant Relationship Specialty Start Date End Date Jamila Robledo MD [address] [place] [address] PCP - General Family Medicine 05/02/19 documented as of this encounter
--- OUTSIDE RECORDS SUMMARY | 2024-08-29 15:44 | XMS_ITS | Encounter Summary ---
Author Organization [employer] Address [address] [facility] 7t [place] [address] Care Team Providers Care Railcar Switchman Name Role Phone Jamila Robledo MD Primary Care Provide r Reason for Visit * Reason Onset Date Comments Results 08/13/2024 Encounter Details Date Type Department Care Team ([facility] Contact Info) Description 08/13/2024 Telephone [facility] [address] [place], [place] [phone] Aide Bishop MD [address] [place] [address] Results Social History Tobacco Use Types Packs/Day [...] and Dr Bishop sent potassium supplement to [facility] pharmacy on file to take. Reviewed med [...] Office Visit [facility] [address] [place] [phone] Jamila Robledo MD [address] [place] [phone] 09/16/2024 9:30 AM EDT Procedure Visit [address] [address] Jamila Robledo MD [address] [place] [address] 10/10/2024 1:30 PM EDT Office Visit [address] [address] Traci Singh MD [address] [place] [address] [phone] documented as of this encounter Visit Diagnoses Not on filedocumented in this encounter Additional Health Concerns Assessment Noted Time PHQ-9 Depression Total Score: 0 02/06/20 24 2:56 PM EDT documented as of this encounter Care Teams Railcar Switchman Relationship Specialty Start Date End Date Jamila Robledo MD [address] [place] [address] [phone] PCP - General Family Medicine 05/02/19 documented as of this encounter
--- OUTSIDE RECORDS SUMMARY | 2024-08-29 15:44 | XMS_ITS | Data Portability ---
Author Organization [employer] Address [address] [place] [phone] Care Team Providers Care Science Professor Name Role Phone [facility] Referring Provider [facility] Referring Provider Assessment Encounter Date Assessment Date Assessment LastModified by Organization Details LastModified Time 11/14/2022 11/14/2022 As noted, we were called to see this patient regarding concerns of sinus congestion. Evaluation in the field was performed by my invasive physician colleague, as noted above, I provided real-time [...] despite meds, vision changes, altered mental status. [email or web address] Not available 11/14/2022 15:14:51 Plan of Treatment Reminders Order Date Submit Date Provider Last Modified By Organization Details Last Modified Time Details Appointments None recorded. Lab None recorded. Referral None recorded. Procedures None recorded. Surgeries None recorded. Imaging None recorded. Medication Orders Paxlovid 300 mg (150 mg x 2)-100 mg tablets in a dose pack 2022 023 [facility] #[id number], [address] [facility] [place], [address], 3 13:07:58 Patient TargetsNo targets recorded. Patient [...] 3 97 % 97 % 18 /min 55626.6 8 g 98.4 [degF] 83 /min 157.48 cm 134 mm[Hg] 82 mm[Hg] Not Available [employer] 3 13:02:00 Date Recorded Body temperature Body weight Oxygen saturation Oxygen saturation in Arterial blood by Pulse oximetry Respiratory rate Heart rate Systolic blood pressure Diastolic blood pressure Provider Name and Address Organization Details Last Updated DateTime 3 97.1 [degF] 82272.2 4 g 97 % 97 % 16 /min 76 /min 163 mm[Hg] 96 mm[Hg] Not Available [employer] 3 14:04:45 Date Recorded Body weight Body height Body temperature Oxygen saturation Oxygen saturation in Arterial blood by Pulse oximetry Heart rate Respiratory rate Systolic blood pressure Diastolic blood pressure Provider Name and Address Organization Details Last Updated DateTime 3 82889.6 4 g 157.48 cm 97.8 [degF] 95 % 95 % 61 /min 18 /min 124 mm[Hg] 80 mm[Hg] Not Available [employer] 3 11:16:46 Social History None recorded. Functional Status None recorded. Mental Status None recorded. Family History Nothing Reported. Medical History No medical history recorded. Gynecological HistoryNo gynecological history recorded. Obstetrics History GPAL:G 0 P 0 0 0 0 Past Encounters Encounter ID Performer Location Encounter Start Date Encounter Closed Date Diagnosis/Indication Diagnosis SNOMED-CT Code Diagnosis ICD10 Code Diagnosis Note [id number] Sneha Cintron MD [facility] [address] [place] [phone] 11/09/2022 14:04:34 11/10/2022 14:20:47 Acute bacterial sinusitis 07186121 J01.90 47 year old female, being evaluated [...] y changing to an alternativ e regimen. [id number] NEELAM ALVARADO MD [facility] [address] [place] [phone] 11/14/2022 11:16:43 11/15/2022 09:34:22 Congestion of nasal sinus [id number] R09.81 [id number] Bam Luo MD [facility] [address] [place] [phone] 05/06/2023 13:01:58 05/06/2023 16:22:04 COVID-19 622166111 U07.1 47yo woman presents with URI symptoms [...] levels expected to be safe. Acute COVID-19 [id number] U07.1 We discussed the benefit of Paxlovid to reduce the risk of hospitaliz ation and , and the potential downsides/ side effects, including dysgeusia, headache, COVID rebound, and the possibilit y of medication interactio ns despite my efforts to review medication s and child guidance counselor on discontinu ation. We discussed alternativ [...] Navarro Member ID Guarantor Name 11/09/2022 1 [facility] - DOS ON OR AFTER 2022 - DUAL ELIGIBLE - RESIDENTIAL OPTIONS AND ONE CARE (MEDICARE REPLACEMENT/ADV ANTAGE - HMO) Rohini Conner [id number] Rohini Conner 11/14/2022 1 [facility] - DOS ON OR AFTER 2022 - DUAL ELIGIBLE - RESIDENTIAL OPTIONS AND ONE CARE (MEDICARE REPLACEMENT/ADV ANTAGE - HMO) Rohini Conner [id number] Rohini Conner 05/06/2023 1 [facility] - DOS ON OR AFTER 2022 - DUAL ELIGIBLE - RESIDENTIAL OPTIONS AND ONE CARE (MEDICARE REPLACEMENT/ADV ANTAGE - HMO) Rohini Conner [id number] Rohini Conner Notes Date Note Type Note [...] process this visit. Sneha Cintron MD [address] [facility],[address], [place], [phone], [employer] 11/09/2022 14:09:36 11/14/2022 text/html CRC Nursing Assessment: Reason For Request: Follow up visit>Sinus infection, which has not gotten better. Chief Complaints: URI PMH: COPD/Asthma, Hypertension, Heart Disease Allergies: No Known Comments: [facility] was on [facility] amoxicillin and completed the course. Member continues to be congested, mild cough from being dry. Member has chills no fever but has pain and sinus pressure . Member has sob when sleeping and has to sleep upright Verified identity by .................. .................. .................. .................. .................. .................. .................. ............... Belt Notcher Note From Racheal Singleton: Sent to a call for a pt requesting follow up due to sinus infection. [facility] arrives on scene, pt is alert and oriented, airway is patent. [facility] amox[facility] x 7 days [...] expresses Zertec D seems to be ineffective. [facility] [place] changing to Shi and offers to send script for Shi and Saline nasal spray. Pt declines stating she's tried Shi and has Saline nasal spray. Pt advised to follow up with PCP for further evaluation. [facility] [place] follow up request to pt's care team. Red flags discussed. Pt has no further questions. .................. .................. .................. .................. .................. .................. .................. ............... Disposition: Fulfilled NEELAM ALVARADO MD [address] [place] [address],[address], [place], [phone], [employer] 11/14/2022 15:15:16 05/06/2023 text/html HPI: I tested [...] .................. .................. .................. .................. .................. .................. ............... Belt Notcher Note From Yosi Araujo: [facility] visit for [...] for symptoms with some improvement. [place]ed with [facility] [place]. Luo who prescribed paxlovid for patients symptoms. Prescription sent to patients pharmacy. Patient education provided and encouraged to continue with home remedies as well. .................. .................. .................. .................. .................. .................. .................. ............... Disposition: Fulfilled Bam Luo MD [address] [facility],[address], [place], [phone], [employer] 05/06/2023 13:08:00 OBGyn Episode No OBEpisode recorded.
--- OUTSIDE RECORDS SUMMARY | 2024-08-29 15:44 | XMS_ITS | Encounter Summary ---
Author Organization [employer] Address 75 [facility] 7t [place] [address] Care Team Providers Care Pet Groomer Name Role Phone Jamila Robledo MD Primary Care Provide r Encounter Details Date Type Department Care Team ([facility] Contact Info) Description 08/18/2024 Orders Only GENERIC [...] 09/15/2024 11:15 AM EDT Office Visit [facility] MEDICINE [address] [place] [phone] Jamila Robledo MD [address] [place] [phone] 09/16/2024 9:30 AM EDT Procedure Visit [address] [address] Jamila Robledo MD [address] [place] [address] 10/10/2024 1:30 PM EDT Office Visit [address] [address] Traci Singh MD [address] [place] [address] [phone] documented as of this encounter Procedures Procedure Name Priority Date/Time Associated Diagnosis Comments US PELVIS TRANSVAGINAL Routine 1:23 PM EST SARS COV2/INFLUENZA A/B AND RSV RNA QL NAAT Routine 08/18/2024 1:07 PM EST CBC WITH AUTO DIFFERENTIAL Routine 08/18/2024 1:07 PM EST MAGNESIUM Routine 08/18/2024 1:07 PM EST COMPREHENSIVE METABOLIC PANEL Routine 08/18/2024 1:07 PM EST CHLAMYDIA/N. GONORRHOEAE RNA, TMA, UROGENITAL Routine 08/18/2024 12:53 PM EST BACTERIAL VAGINOSIS PANEL Routine 08/18/2024 12:00 AM EST documented in this encounter Results * US Pelvis Transvaginal (08/18/2024 1:23 PM EST) Anatomical Region Laterality Modality Pelvis Ultrasound 08/18/2024 1:23 PM EST Narrative 08/18/2024 3:05 PM EST ? [facility] ?[address] ?[place] [address] ? Ultrasound Report ? Signed ? Patient: Conner,Rohini ?MR#: [id number] ? : 1975 ?Acct:[id number] ? Age/Sex: 49 / F ?ADM Date: 08/18/24 ? Loc: HO.ED ? Attending Dr: ? Ordering Physician: Pina Gruber ?? Date of Service: 08/18/24 ?? Procedure(s): US pelvic and transvaginal ?? Accession Number(s): [id number] ? cc: Jamila Robledo MD; Pina Gruber [...] 03:02 PM EST RP ? Dictated By: ?Stefania,Bird S MD ? Signed By: ?<Electronically signed by Bird S Stefania, MD in OV> ?08/18/24 1502 ? DD/ 1323 ? TD/TT: 08/18/24 1346 ? Retail Sales Representative: MSM ? Procedure Note Guilherme, Image - 08/18/2024 [phone] [place] [address] Ultrasound Report Signed Patient: Elham Conner#: [id number] : 1975Acct:[id number] Age/Sex: 49 / FADM Date: 08/18/24 Loc: HO.ED Attending Dr: Ordering Physician: Pina Gruber Date of Service: 08/18/24 Procedure(s): US pelvic and transvaginal Accession Number(s): [id number] cc: Jamila Robledo MD; Pina Gruber EXAMINATION: [...] Bird Aguiar MD 08/18/2024 03:02 PM EST Dictated By: Bird Aguiar MD Signed By: <Electronically signed by Bird Aguiar MD in OV> 08/18/24 1502 DD/ 1323 TD/TT: 08/18/24 1346 Retail Sales Representative: E[facility] External Provider IMG US PROCEDURES Final Result * SARS-CoV-2 RNA, Influenza A/B, and RSV RNA, Ql NAAT (08/18/2024 1:07 PM EST) Influenza A PCR NEGATIVE Negative [facility] Influenza B PCR NEGATIVE Negative [facility] Resp Syncy Virus RNA Qual PCR NEGATIVE Negative [facility] SARS COV2 PCR NEGATIVE Negative [facility] Comment:All test results mus t be [...] use by authorized laboratories.Testing performed on the V[employer] GeneXpert utilizingreal-time RT-PCR.All SARS CoV2 and positive influenza A/B results arereported to [facility]. 08/18/2024 1:07 PM EST 08/18/2024 1:14 PM EST Generic External Data Provider LAB MICROBIOLOGY - GENERAL ORDERABLES Final Result [facility] [address] [place] [address] [phone] * Magnesium (08/18/2024 1:07 PM EST) Magnesium 1.9 1.6 - 2.6 mg/dL [facility] 08/18/2024 1:07 PM EST 08/18/2024 1:14 PM EST us Generic External Data Provider LAB BLOOD ORDERAB LES Final Result [facility] [address] [place] [address] [phone] * (ABNORMAL) Comprehensive Metabolic Panel (08/18/2024 1:07 PM EST) Sodium 140 135 - 145 mmol/L [facility] Potassium 3.1(L) 3.3 - 5.1 mmol/L [facility] Chloride 100 96 - 108 mmol/L [facility] Carbon Dioxide 30(H) 22 - 29 mmol/L [facility] Anion Gap 13 12 - 20 [facility] Urea Nitrogen (BUN) 14 9 - 16 mg/dL [facility] Creatinine, Serum 0.62 0.5 - 1.4 mg/dL [facility] Creatinine Clr Calc Pharmacy 106.3 [facility] Comment:Provided height and weight: 154.94 cm,81.647 kg.eGFR (calculated from the MDRD study equation) and eCrCl(calculated from the Cockcroft-Gault equation) are based ondifferent parameters and may not yield comparable results.If eCrCl result is absurd, please check patient'sheight/weight. Estimated Glomerular Filt Rate >60 [facility] Comment:Chronic Kidney Disea se: Estimated GFR < 60 mL/min/1.63m9Dnteok Kidney Disease: Estimated GFR < 15 mL/min/1.73m2 Glucose 103 60 - 115 mg/dL [facility] Calcium 9.3 8.4 - 10.2 mg/dL [facility] Bilirubin, Total 0.2 0.0 - 1.0 mg/dL [facility] Aspartate Amino Transferase 26 5 - 31 U/L [facility] Alanine Aminotransferase 37(H) 0 - 31 U/L [facility] Total Protein 7.5 6.5 - 8.0 g/dL [facility] Albumin Level 4.0 3.5 - 5.0 g/dL [facility] Alkaline Phosphatase 87 39 - 117 U/L [facility] 08/18/2024 1:07 PM EST 08/18/2024 1:14 PM EST us Generic External Data Provider LAB BLOOD ORDERAB LES Final Result [facility] [address] [place] [address] [phone] * (ABNORMAL) CBC auto differential (08/18/2024 1:07 PM EST) White Blood Count 6.3 4.8 - 10.8 X10*3/uL [facility] Red Blood Count 4.81 4.20 - 5.50 X10*6/uL [facility] Hemoglobin 13.9 12.0 - 16.0 g/dl [facility] Hematocrit 40.2 37.0 - 47.0 % [facility] Mean Corpuscular Volume 83.6 80.0 - 98.0 fL [facility] Mean Corpuscular Hemoglobin 28.9 27.0 - 33.0 pg [facility] Mean Corpuscular HGB Conc 34.6 31.0 - 35.0 g/dl [facility] Red Cell Distribution Width 13.4 11.0 - 16.0 % [facility] Platelet Count 233 160 - 400 X10*3/uL [facility] Mean Platelet Volume 9.9 9.4 - 12.3 fL [facility] Neutrophils Percent Auto 48.1 45 - 73 % [facility] Imm Gran Pct Auto 0.3 0.0 - 0.4 % [facility] Lymphocytes Percent Auto 34.1 20 - 40 % [facility] Monocytes Percent Auto 7.6 2 - 11 % [facility] Eosinophils Percent Auto 8.8(H) 0 - 4 % [facility] Basophils Percent Auto 1.1 0 - 2 % [facility] NRBC Pct Auto 0.0 0.0 - 0.2 /100WBC [facility] Neutrophils Absolute Auto 3.0 2.0 - 8.3 x10*3/uL [facility] Imm Gran Abs Auto 0.02 0.00 - 0.03 X10*3/uL [facility] Lymphocytes Absolute Auto 2.2 1.2 - 4.9 X10*3/uL [facility] Monocytes Absolute Auto 0.5 0.1 - 1.2 X10*3/uL [facility] Eosinophils Absolute Auto 0.6(H) 0.0 - 0.4 X10*3/uL [facility] Basophils Absolute Auto 0.1 0.0 - 0.2 X10*3/uL [facility] NRBC Abs Auto 0.000 0.0 - 0.012 X10*3/uL [facility] 08/18/2024 1:07 PM EST 08/18/2024 1:14 PM EST us Generic External Data Provider LAB BLOOD ORDERAB LES Final Result [facility] [address] [place] [address] [phone] * Chlamydia/N. Gonorrhoeae RNA, TMA, Urogenitial (08/18/2024 12:53 PM EST) CT PCR NOT DETECTED Not Detect. [facility] Comment:A not detected test result does not exclude the possibilityof infection because test results can be affected byimproper specimen collection, concurrent antibiotic therapy,or the number of organisms in the specimen which may bebelow the sensitivity of the test. As with many diagnostictests, results from the Xpert CT/NG assay should beinterpreted in conjunction with other laboratory andclinical data available to the clinician.Xpert CT/NG performance has not been evaluated in patientsless than 14 years of age. The assay should not be used forthe evaluationof suspected sexual abuse or for other medico-legalindications. Additional testing is recommended in anycircumstance when false positive or false negative resultscould lead to adverse medical, social or psychologicalconsequences. NG PCR NOT DETECTED Not Detect. [facility] Comment:A not detected test result does not exclude the possibilityof infection because test results can be affected byimproper specimen collection, concurrent antibiotic therapy,or the number of organisms in the specimen which may bebelow the sensitivity of the test. As with many diagnostictests, results from the Xpert CT/NG assay should beinterpreted in conjunction with other laboratory andclinical data available to the clinician.Xpert CT/NG performance has not been evaluated in patientsless than 14 years of age. The assay should not be used forthe evaluationof suspected sexual abuse or for other medico-legalindications. Additional testing is recommended in anycircumstance when false positive or false negative resultscould lead to adverse medical, social or psychologicalconsequences. 08/18/2024 12:5 3 PM EST 08/18/2024 4:41 PM EST Narrative [facility] - 08/19/2024 1:15 PM EST [facility] - [facility] YUSUF DIAMOND Final Result [facility] [address] [place] [phone] * (ABNORMAL) Bacterial Vaginosis (08/18/2024 12:00 AM EST) TRICHOMONAS VAGINALIS DETECTION BY PCR NOT DETECTED Not Detect [facility] BACTERIAL VAGINOSIS DETECTION BY PCR POSITIVE(A) Negative [facility] Comment:The BV organism targ ets of the Xpert Xpress MVP test can becommensal in women; Xpert Xpress MVP positive results forbacterial vaginosis should be considered in conjunction withother clinical and patient information to determine thedisease status. Organisms that are not detected by the XpertXpress MVP test have also been reported to be associatedwith BV and aerobic vaginitis.The Xpert Xpress MVP test performance has not been evaluatedin patients under the age of 14. [employer] DETECTION BY PCR NOT DETECTED Not Detect [facility] Temi glab krusei PCR NOT DETECTED Not Detect [facility] 08/18/2024 08/18/2024 4:4 6 PM EST us Leslie Kaplaneleazar PHOTOGRAPHIC SPECIALIST LAB MICROBIOLOGY - GENERAL YUSUF DIAMOND Final Result [facility] [address] [place] [address] [phone] documented in this encounter Visit Diagnoses Not on filedocumented in this encounter Additional Health Concerns Assessment Noted Time PHQ-9 Depression Total Score: 0 02/06/20 24 2:56 PM EDT documented as of this encounter Care Teams Pet Groomer Relationship Specialty Start Date End Date Jamila Robledo MD [address] [place] [address] PCP - General Family Medicine 05/02/19 documented as of this encounter
--- OUTSIDE RECORDS SUMMARY | 2024-08-29 15:44 | XMS_ITS | Encounter Summary ---
Author Organization [employer] Address 75 [facility] 7t [place] [address] Care Team Providers Care Plant Custodian Name Role Phone Jamila Robledo MD Primary Care Provide r Reason for Visit * Reason Onset Date Comments Results 08/13/2024 Encounter Details Date Type Department Care Team ([facility] Contact Info) Description 08/13/2024 Telephone [facility] MEDICINE [address] [place], [place] [phone] Jamila Robledo MD [address] [place] [address] Results Social History Tobacco Use Types Packs/Day [...] was completed. * Telephone Encounter - Alberto Adan - 08/13/2024 3:08 PM EST TC from pt requesting call back regarding Results. Type of results: Basic Metabolic Panel , Ferritin , Iron , TSH , CBC Date when done: 08/13/2024 Facility: [facility] documented in this encounter Plan of Treatment Upcoming Encounters Date Type Department Care Team (Late st Contact Info) Description 09/15/2024 11:15 AM EDT Office Visit [facility] MEDICINE [address] [place] [phone] Jamila Robledo MD [address] [place] [address] 09/16/2024 9:30 AM EDT Procedure Visit [facility] MEDICINE [address] [place] [phone] Jamila Robledo MD [address] [place] [address] 10/10/2024 1:30 PM EDT Office Visit [facility] MEDICINE [address] [place] [address] [phone] Traci Singh MD [address] [place] [phone] documented as of this encounter Visit Diagnoses Not on filedocumented in this encounter Additional Health Concerns Assessment Noted Time PHQ-9 Depression Total Score: 0 02/06/20 24 2:56 PM EDT documented as of this encounter Care Teams Plant Custodian Relationship Specialty Start Date End Date Jamila Robledo MD [address] [place] [phone] PCP - General Family Medicine 05/02/19 documented as of this encounter
--- OUTSIDE RECORDS SUMMARY | 2024-08-29 15:44 | XMS_ITS | Encounter Summary ---
Author Organization [employer] Address [address] [facility] [address] [place] [address] Care Team Providers Care Miniature Set Designer Name Role Phone Jamila Robledo MD Primary Care Provide r Encounter Details Date Type Department Care Team ([facility] Contact Info) Description 08/21/2024 Telephone [facility] MEDICINE [address] [place] [address] Madina Corrales RN Social History Tobacco Use Types Packs/Day Years [...] your housing situation today? I have [place] 04/06/[address] you li [...] encounter Miscellaneous Notes * Telephone Encounter - Madina Corrales RN - 08/21/2024 1:36 PM EST Tc to pt to let them know per covering provider Please inform patient of lab result. I have sent pills to the pharmacy for her. Please provide metronidazole med teaching. Thanks Pt advised to avoid alcohol and mouthwash containing alcohol during treatment and 3 days after finishing the medication. Pt verbalized understanding and no further questions or concerns at this time. documented in this encounter Plan of Treatment Upcoming Encounters Date Type Department Care Team (Late st Contact Info) Description 09/15/2024 11:15 AM EDT Office Visit [facility] MEDICINE [address] [place] [phone] Jamila Robledo MD [address] [place] [phone] 09/16/2024 9:30 AM EDT Procedure Visit [facility] MEDICINE [address] [place] [address] Jamila Robledo MD [address] [place] [phone] 10/10/2024 1:30 PM EDT Office Visit [facility] MEDICINE [address] [place] [address] Traci Singh MD [address] [place] [address] documented as of this encounter Visit Diagnoses Not on filedocumented in this encounter Additional Health Concerns Assessment Noted Time PHQ-9 Depression Total Score: 0 02/06/20 24 2:56 PM EDT documented as of this encounter Care Teams Miniature Set Designer Relationship Specialty Start Date End Date Jamila Robledo MD [address] [place] [address] PCP - General Family Medicine 05/02/19 documented as of this encounter
--- OUTSIDE RECORDS SUMMARY | 2024-08-29 15:44 | XMS_ITS | Encounter Summary ---
Author Organization [employer] Address 75 [facility] 7t [place] [address] Care Team Providers Care Grease Buffer Name Role Phone Jamila Robledo MD Primary Care Provide r Reason for Visit * Reason Onset Date Comments Nurse Triage 08/12/2024 Encounter Details Date Type Department Care Team ([facility] Contact Info) Description 08/12/2024 Telephone [facility] MEDICINE [address] [place], [place] [phone] Jamila Robledo MD [address] [place] [address] Nurse Triage Social History Tobacco Use Types [...] t he electric, gas, oil or water [employer] threatened to shut off services in your [...] 09/15/2024 11:15 AM Jamila Beebe MD MEDICINE [facility] 09/16/2024 9:30 AM Jamila Beebe MD [facility] Insurance verified as active per Real Time Eligibility in [facility]. Positive Triage Question: * Age > [...] Description 09/15/2024 11:15 AM EDT Office Visit [address] [address] Jamila Robledo MD [address] [place] [phone] 09/16/2024 9:30 AM EDT Procedure Visit [address] [address] Jamila Robledo MD [address] [place] [address] 10/10/2024 1:30 PM EDT Office Visit [address] [address] Traci Singh MD [address] [place] [phone] documented as of this encounter Visit Diagnoses Not on filedocumented in this encounter Additional Health Concerns Assessment Noted Time PHQ-9 Depression Total Score: 0 02/06/20 24 2:56 PM EDT documented as of this encounter Care Teams Grease Buffer Relationship Specialty Start Date End Date Jamila Robledo MD [address] [place] [phone] PCP - General Family Medicine 05/02/19 documented as of this encounter
--- OUTSIDE RECORDS SUMMARY | 2024-08-29 15:44 | XMS_ITS | Encounter Summary ---
Author Organization [employer] Address 75 [facility] 7t [place] [address] Care Team Providers Care Pigskin Trimmer Name Role Phone Jamila Robledo MD Primary Care Provide r Reason for Visit * Reason Comments sick onsite Encounter Details Date Type Department Care Team ([facility] Contact Info) Description 08/18/2024 11:15 AM EST Office Visit [facility] MEDICINE [address] [place], [place] [phone] Leslie Peres NP [address] [place], [place] [phone] Lower abdominal pain (Primary Dx) Social History [...] 11:15 AM EDT Office Visit [facility] MEDICINE [address] [place] [address] Jamila Robledo MD [address] [place] [address] 09/16/2024 9:30 AM EDT Procedure Visit [facility] MEDICINE [address] [place] [address] [phone] Jamila Robledo MD [address] [place] [address] [phone] 10/10/2024 1:30 PM EDT Office Visit [facility] MEDICINE [address] [place] [address] [phone] Traci Singh MD [address] [place] [address] [phone] Scheduled Orders Name Type Priority Associated Diagnoses [...] documented as of this encounter Care Teams Pigskin Trimmer Relationship Specialty Start Date End Date Jamila Robledo MD [address] [place] [address] [phone] PCP - General Family Medicine 05/02/19 documented as of this encounter
--- OUTSIDE RECORDS SUMMARY | 2024-08-29 15:44 | XMS_ITS | Encounter Summary ---
Author Organization [employer] Address 75 [facility] 7t [place] [address] Care Team Providers Care Immigration Law Specialist Name Role Phone Jamila Robledo MD Primary Care Provide r Reason for Visit * Reason Comments Med Change Request Encounter Details Date Type Department Care Team ([facility] Contact Info) Description 07/17/[address] [facility] [address] [place], [place] [phone] Ruth Costello FNP [address] [place] [address] Social History Tobacco Use Types Packs/Day Years [...] [facility] MEDICINE [address] [place] [phone] Jamila Robledo MD [address] [place] [phone] 09/16/2024 9:30 AM EDT Procedure Visit [facility] MEDICINE [address] [place] [address] Jamila Robledo MD [address] [place] [phone] 10/10/2024 1:30 PM EDT Office Visit [address] [address] Traci Singh MD [address] [place] [phone] documented as of this encounter Visit Diagnoses Not on filedocumented in this encounter Additional Health Concerns Assessment Noted Time PHQ-9 Depression Total Score: 9 11/04/19 23 2:36 PM EDT documented as of this encounter Care Teams Immigration Law Specialist Relationship Specialty Start Date End Date Jamila Robledo MD [address] [place] [address] [phone] PCP - General Family Medicine 05/02/19 documented as of this encounter
--- OUTSIDE RECORDS SUMMARY | 2024-08-29 15:45 | XMS_ITS | Encounter Summary ---
Author Organization [employer] Address 75 [facility] 7t [place] [address] Care Team Providers Care Technical Sales Representatives Name Role Phone Jamila Robledo MD Primary Care Provide r Reason for Visit * Reason Onset Date Comments Nurse Triage 02/27/2024 Encounter Details Date Type Department Care Team ([facility] Contact Info) Description 02/27/2024 Telephone [facility] MEDICINE [address] [place], [place] [phone] Jamila Robledo MD [address] [place] [address] Nurse Triage Social History Tobacco Use Types [...] the past 12 months, has t he Locality, gas, oil or water [employer] threatened to shut off services in your [...] to check this. Advised to come to [facility] open till 8pm today and th, fri, 830a-4p. Pt agrees with this disposition and will come to [facility] probably in the morning. Insurance is [...] Description 09/15/2024 11:15 AM EDT Office Visit [facility] MEDICINE [address] [place] [phone] Jamila Robledo MD [address] [place] [phone] 09/16/2024 9:30 AM EDT Procedure Visit [address] [address] Jamila Robledo MD [address] [place] [phone] 10/10/2024 1:30 PM EDT Office Visit [address] [address] Traci Singh MD [address] [place] [phone] documented as of this encounter Visit Diagnoses Not on filedocumented in this encounter Additional Health Concerns Assessment Noted Time PHQ-9 Depression Total Score: 0 02/06/20 24 2:56 PM EDT documented as of this encounter Care Teams Technical Sales Representatives Relationship Specialty Start Date End Date Jamila Robledo MD [address] [place] [phone] PCP - General Family Medicine 05/02/19 documented as of this encounter
--- OUTSIDE RECORDS SUMMARY | 2024-08-29 15:45 | XMS_ITS | Clinical Summary ---
Author Organization [employer] Address [address] [place] [address] 7[address] [place] [address] Care Team Providers Care Lead Technician Name Role Phone Jamila Robledo MD [...] 2024 Active Blood Glucose Monitoring Suppl (FreeStyle Garvin Lite) w/Device kitIndications: Prediabetes Use to test [...] eorder (will not trigger notification to Pharmacy)) metroNIDAZOLE (Flagyl) 500 MG tabletIndicatio ns:Bacterial vaginosis Take 1 tablet (500 mg) by mouth 2 times daily for 7 days. 14 tablet 025 2024 Active Problems Problem Noted Date Diagnosed Date Abnormal vaginal bleeding 08/13/2024 Assessment & Plan (08/13/2024 9:50 AM EST): (a set of twins), irregular periods x1.5 yrs and amenorrhea the last 5 months. Heavy vaginal bleeding x2 days. Not currently established with BELL CLERK. Abdominal exam benign. -ordered CBC, TSH, iron panel, and BMP. -ordered transvaginal US -referred to BELL CLERK -prescribed medroxyPROGESTERone 5 mg, TID x5days Right [...] Encounters Date Type Department Care Team Description 08/29/2024 Orders Only [facility] External Provider, [facility] 08/21/2024 Telephone [facility] [address] [place] [phone] Madina Corrales RN 08/21/2024 Orders Only [address] [address] Leslie Peres NP Bacterial vaginosis (Primary Dx) 08/18/2024 11:15 AM EST Office Visit [address] [address] Leslie Peres NP Lower abdominal pain (Primary Dx) 08/18/2024 Orders Only GENERIC EXTERNAL DATA DEPARTMENT Provider, Generic External Data 08/18/2024 Travel 08/18/2024 Refill [facility] [address] [place] [address] Jamila Robledo MD Acute non-recurrent frontal sinusitis 08/18/2024 Telephone [facility] [address] [place] [address] Jamila Robledo MD Nurse Triage 08/13/2024 9:20 AM EST Office Visit [facility] [address] [place] [phone] Aide Bishop MD Abnormal vaginal bleeding (Primary Dx) 08/13/2024 Telephone [facility] [address] [place] [address] Aide Bishop MD Results 08/13/2024 Telephone [facility] [address] [place] [phone] Jamila Robledo MD Results 08/13/2024 Orders Only [facility] [address] [place] [address] Aide Bishop MD Hypokalemia 08/13/2024 Refill [facility] [address] [place] [address] Jamila Robledo MD 08/12/2024 Telephone [facility] [address] [place] [address] Jamila Robledo MD Nurse Triage 07/10/2024 Refill [facility] [address] [place], [place] [phone] Jamila Robledo MD Chronic pansinusitis; Mild persistent asthma without complication; Gastroesophageal reflux disease, unspecified whether esophagitis present; Psychophysiological insomnia 06/17/2024 12:30 PM EST Telemedicine [facility] [address] [place] [address] Jamila Robledo MD Obesity (BMI 30-39.9) (Primary Dx); Prediabetes; Right hip pain; Trochanteric bursitis of right hip 06/17/2024 Travel from Last 3 Months Immunizations Name Administration [...] Office Visit [facility] [address] [place] [phone] Jamila Robledo MD [address] [place] [phone] 09/16/2024 9:30 AM EDT Procedure Visit [facility] [address] [place] [address] Jamila Robledo MD [address] [place] [address] 10/10/2024 1:30 PM EDT Office Visit [facility] [address] [place] [address] Traci Singh MD [address] [place] [address] Health Maintenance Due Date Last Done Comments CT Colonography 1975 Colonoscopy 1975 Colorectal Cancer Screening 1975 FIT DNA/Cologuard 1975 FIT 1975 FOBT 1975 HIV Screening 1975 Sigmoidoscopy 1975 Family Planning (PISQ) 1990 Hepatitis B Vaccines (1 of 3 - 19+ 3-dose series) 1994 Pap Smear 1996 COVID-19 Vaccine (2023- season) 2024 05/02/2021, 09/01/2020 Influenza Vaccine (#1) [...] WO CONTRAST Routine 08/29/2024 2:17 PM EDT US PELVIS TRANSVAGINAL Routine 08/18/2024 1:23 PM EST MAGNESIUM Routine 08/18/2024 1:07 PM EST COMPREHENSIVE METABOLIC PANEL Routine 08/18/2024 1:07 PM EST CBC WITH AUTO DIFFERENTIAL Routine 08/18/2024 1:07 PM EST SARS COV2/INFLUENZA A/B AND RSV RNA QL NAAT Routine 08/18/2024 1:07 PM EST CHLAMYDIA/N. GONORRHOEAE RNA, TMA, UROGENITAL Routine 08/18/2024 12:53 PM EST BACTERIAL VAGINOSIS PANEL Routine 08/18/2024 12:00 AM EST BASIC METABOLIC PANEL Routine 08/13/2024 10:02 [...] Recently Relevant to Health Maintenance Results * CT Sinus w/o Contrast (08/29/2024 2:17 PM EDT) Anatomical Region Laterality Modality Computed Tomogra phy 08/29/2024 2:17 PM EDT Narrative 08/29/2024 3:33 PM EDT ? [facility] ?[address] ?[place] [address] ? CT Scan Report ? Signed ? Patient: Conner,Rohini ?MR#: [id number] ? : 1975 ?Acct:[id number] ? Age/Sex: 49 / F ?ADM Date: 08/29/24 ? Loc: HO.CT ? Attending Dr: James Willett ? Ordering Physician: James Willett ?? Date of Service: 08/29/24 ?? Procedure(s): CT sinus wo IV con ?? Accession Number(s): [id number] ? cc: Jamila Robledo MD; James Willett ? Report Number: ?? [id number]: Total DLP = ??127.00 mGy-cm ?? EXAMINATION: [...] DD/ 1417 ? TD/TT: 08/29/24 1440 ? Automobile Damage Field Appraiser: ? Procedure Note Milton Vanegas - 08/29/[address] [place] [address] [address] Scan Report Signed Patient: Allyssa ConnerR#: [id number] : 1975Acct:[id number] Age/Sex: 49 / FADM Date: 08/29/24 Loc: HO.CT Attending Dr: James Willett Ordering Physician: James Willett Date of Service: 08/29/24 Procedure(s): CT sinus wo IV con Accession Number(s): [id number] cc: Jamila Robledo MD; James Willett Report Number: [id number]: Total DLP = 127.00 mGy-cm EXAMINATION: CT [...] Hector Rome MD 08/29/2024 03:28 PM EDT Dictated By: Hector Rome MD Signed By: <Electronically signed by Hector Rome MD in OV> 08/29/24 1528 DD/ 1417 TD/TT: 08/29/24 1440 Automobile Damage Field Appraiser: [facility] External Provider IMG CT PROCEDURES Final Result * US Pelvis Transvaginal (08/18/2024 1:23 PM EST) Anatomical Region Laterality Modality Pelvis Ultrasound 08/18/2024 1:23 PM EST Narrative 08/18/2024 3:05 PM EST ? [facility] ?[address] ?[place] [address] ? Ultrasound Report ? Signed ? Patient: Rohini Conner ?MR#: [id number] ? : 1975 ?Acct:[id number] ? Age/Sex: 49 / F ?ADM Date: 08/18/24 ? Loc: HO.ED ? Attending Dr: ? Ordering Physician: Pina Gruber ?? Date of Service: 08/18/24 ?? Procedure(s): US pelvic and transvaginal ?? Accession Number(s): [id number] ? cc: Jamila Robledo MD; Pina Gruber [...] not seen. ? Electronically signed by: ??Bird Stefania MD ??08/18/2024 03:02 PM EST RP ? Dictated By: ?Stefania,Bird S MD ? Signed By: ?<Electronically signed by Bird S Stefania, MD in OV> ?08/18/24 1502 ? DD/ 1323 ? TD/TT: 08/18/24 1346 ? Automobile Damage Field Appraiser: MSM ? Procedure Note Guilherme, Image - 08/18/[address] [address] Ultrasound Report Signed Patient: Allyssa ConnerR#: [id number] : 1975Acct:[id number] Age/Sex: 49 / FADM Date: 08/18/24 Loc: HO.ED Attending Dr: Ordering Physician: Pina Gruber Date of Service: 08/18/24 Procedure(s): US pelvic and transvaginal Accession Number(s): [id number] cc: Jamila Robledo MD; Pina Gruber EXAMINATION: [...] 08/18/24 1502 DD/ 1323 TD/TT: 08/18/24 1346 Automobile Damage Field Appraiser: EDSON [facility] External Provider IMG US PROCEDURES Final Result * SARS-CoV-2 RNA, Influenza A/B, and RSV RNA, Ql NAAT (08/18/2024 1:07 PM EST) Influenza A PCR NEGATIVE Negative [facility] Influenza B PCR NEGATIVE Negative [facility] Resp Syncy Virus RNA Qual PCR NEGATIVE Negative [facility] SARS COV2 PCR NEGATIVE Negative [facility] [...] use by authorized laboratories.Testing performed on the [employer] GeneXpert utilizingreal-time RT-PCR.All SARS CoV2 and positive influenza A/B results arereported to [facility]. 08/18/2024 1:07 PM EST 08/18/2024 1:14 PM EST Generic External Data Provider LAB MICROBIOLOGY - GENERAL ORDERABLES Final Result [facility] [address] [place] [address] [phone] * (ABNORMAL) CBC auto differential (08/18/2024 1:07 PM EST) Only the most recent of2 resultswithin the time period is included. White Blood Count 6.3 4.8 - 10.8 X10*3/uL [facility] Red Blood Count 4.81 4.20 - 5.50 X10*6/uL [facility] Hemoglobin 13.9 12.0 - 16.0 g/dl [facility] Hematocrit 40.2 37.0 - 47.0 % [facility] Mean Corpuscular Volume 83.6 80.0 - 98.0 fL [facility] Mean Corpuscular Hemoglobin 28.9 27.0 - 33.0 pg [facility] Mean Corpuscular HGB Conc 34.6 31.0 - 35.0 g/dl [facility] Red Cell Distribution Width 13.4 11.0 - 16.0 % [facility] Platelet Count 233 160 - 400 X10*3/uL [facility] Mean Platelet Volume 9.9 9.4 - 12.3 fL [facility] Neutrophils Percent Auto 48.1 45 - 73 % [facility] Imm Gran Pct Auto 0.3 0.0 - 0.4 % [facility] Lymphocytes Percent Auto 34.1 20 - 40 % [facility] Monocytes Percent Auto 7.6 2 - 11 % [facility] Eosinophils Percent Auto 8.8(H) 0 - 4 % [facility] Basophils Percent Auto 1.1 0 - 2 % [facility] NRBC Pct Auto 0.0 0.0 - 0.2 /100WBC [facility] Neutrophils Absolute Auto 3.0 2.0 - 8.3 x10*3/uL [facility] Imm Gran Abs Auto 0.02 0.00 - 0.03 X10*3/uL [facility] Lymphocytes Absolute Auto 2.2 1.2 - 4.9 X10*3/uL [facility] Monocytes Absolute Auto 0.5 0.1 - 1.2 X10*3/uL [facility] Eosinophils Absolute Auto 0.6(H) 0.0 - 0.4 X10*3/uL [facility] Basophils Absolute Auto 0.1 0.0 - 0.2 X10*3/uL [facility] NRBC Abs Auto 0.000 0.0 - 0.012 X10*3/uL [facility] 08/18/2024 1:07 PM EST 08/18/2024 1:14 PM EST Generic External Data Provider LAB BLOOD ORDERAB LES Final Result Performing Organization Address [facility]/ZIP Co de Phone Number [facility] [address] [place] [phone] * Magnesium (08/18/2024 1:07 PM EST) [facility] Magnesium 1.9 1.6 - 2.6 mg/dL [facility] 08/18/2024 1:07 PM EST 08/18/2024 1:14 PM EST Generic External Data Provider LAB BLOOD ORDERAB LES Final Result Performing Organization Address [facility] Co de Phone Number [facility] [address] [place] [phone] * (ABNORMAL) Comprehensive Metabolic Panel (08/18/2024 1:07 PM EST) Pathologist [facility] Sodium 140 135 - 145 mmol/L [facility] Potassium 3.1(L) 3.3 - 5.1 mmol/L [facility] Chloride 100 96 - 108 mmol/L [facility] Carbon Dioxide 30(H) 22 - 29 mmol/L [facility] Anion Gap 13 12 - 20 [facility] Urea Nitrogen (BUN) 14 9 - 16 mg/dL [facility] Creatinine, Serum 0.62 0.5 - 1.4 mg/dL [facility] Creatinine Clr Calc Pharmacy 106.3 [facility] Comment:Provided height and weight: 154.94 cm,81.647 kg.eGFR (calculated from the MDRD study equation) and eCrCl(calculated from the Cockcroft-Gault equation) are based ondifferent parameters and may not yield comparable results.If eCrCl result is absurd, please check patient'sheight/weight. Estimated Glomerular Filt Rate >60 [facility] Comment:Chronic Kidney Disea se: Estimated GFR < 60 mL/min/1.82m8Robmwz Kidney Disease: Estimated GFR < 15 mL/min/1.73m2 Glucose 103 60 - 115 mg/dL [facility] Calcium 9.3 8.4 - 10.2 mg/dL [facility] Bilirubin, Total 0.2 0.0 - 1.0 mg/dL [facility] Aspartate Amino Transferase 26 5 - 31 U/L [facility] Alanine Aminotransferase 37(H) 0 - 31 U/L [facility] Total Protein 7.5 6.5 - 8.0 g/dL [facility] Albumin Level 4.0 3.5 - 5.0 g/dL [facility] Alkaline Phosphatase 87 39 - 117 U/L [facility] 08/18/2024 1:07 PM EST 08/18/2024 1:14 PM EST us Generic External Data Provider LAB BLOOD ORDERAB LES Final Result [facility] [address] [place] [phone] * Chlamydia/N. Gonorrhoeae RNA, TMA, Urogenitial (08/18/2024 12:53 PM EST) CT PCR NOT DETECTED Not Detect. [facility] Comment:A not detected test result does [...] psychologicalconsequences. NG PCR NOT DETECTED Not Detect. [facility] Comment:A not detected test result does [...] PM EST 08/18/2024 4:41 PM EST Narrative [facility] - 08/19/2024 1:15 PM EST Urine Leslie Peres NP LAB MICROBIOLOGY - [facility] YUSUF DIAMOND Final Result [facility] [address] [place] [phone] * (ABNORMAL) Bacterial Vaginosis (08/18/2024 12:00 AM EST) TRICHOMONAS VAGINALIS DETECTION BY PCR NOT DETECTED Not Detect [facility] BACTERIAL VAGINOSIS DETECTION BY PCR POSITIVE(A) Negative [facility] Comment:The BV organism targ ets of [...] DETECTION BY PCR NOT DETECTED Not Detect [facility] Temi glab krusei PCR NOT DETECTED Not Detect [facility] 08/18/2024 08/18/2024 4:4 6 PM EST Leslie Peres CTE TEACHER LAB MICROBIOLOGY - GENERAL ORDE RABLES Final Result Performing Organization Address City/[facility]/ZIP Co de Phone Number [facility] [address] [place] [phone] * TSH with Reflex to Free T4 (08/13/2024 10:02 AM EST) TSH reflex Free T4 0.63 0.32 - 4.0 uIU/mL [facility] Blood 08/13/2024 10:0 2 AM EST 08/13/2024 11:08 AM EST Aide Bishop MD LAB BLOOD ORDERABLES Final Result Performing Organization Address [facility] Co de Phone Number [facility] [address] [place] [phone] * Iron And Total Iron Binding Capacity (08/13/2024 10:02 AM EST) Iron 99 30 - 160 mcg/dL [facility] Total Iron Binding Capacity 314 228 - 428 mcg/dL [facility] Percent Iron Saturation 32 15 - 50 % [facility] Unsaturated Iron Binding 215 ug/dL [facility] Blood Venous blood specimen / Unknown 08/13/2024 10:02 AM EST 08/13/2024 11:08 AM EST Aide Bishop MD LAB BLOOD ORDERABLES Final Result Performing Organization Address [facility]/ZIP Co de Phone Number [facility] [address] [place] [phone] * Ferritin (08/13/2024 10:02 AM EST) Pathologist [facility] Ferritin 155 10 - 250 ng/mL [facility] Blood Venous blood specimen / Unknown 08/13/2024 10:02 AM EST 08/13/2024 11:08 AM EST Aide Bishop MD LAB BLOOD ORDERABLES Final Result Performing Organization Address [facility]/ZIP Dc de Phone Number [facility] [address] [place] [address] [phone] * (ABNORMAL) Basic Metabolic Panel (08/13/2024 10:02 AM EST) [facility] Sodium 141 135 - 145 mmol/L [facility] Potassium 3.2(L) 3.3 - 5.1 mmol/L [facility] Chloride 104 96 - 108 mmol/L [facility] Carbon Dioxide 29 22 - 29 mmol/L [facility] Anion Gap 11(L) 12 - 20 [facility] Urea Nitrogen (BUN) 14 9 - 16 mg/dL [facility] Creatinine, Serum 0.53 0.5 - 1.4 mg/dL [facility] Estimated Glomerular Filt Rate >60 [facility] Comment:Chronic Kidney Disea se: Estimated GFR < 60 mL/min/1.90i7Soshkt Kidney Disease: Estimated GFR < 15 mL/min/1.73m2 Glucose 114 60 - 115 mg/dL [facility] Calcium 8.8 8.4 - 10.2 mg/dL [facility] Blood Venous blood specimen / Unknown 08/13/2024 10:02 AM EST 08/13/2024 11:08 AM EST Aide Bishop MD LAB BLOOD ORDERABLES Final Result Performing Organization Address [facility] Co de Phone Number [facility] [address] [place] [phone] * Hepatitis C Ab (04/03/2024 11:38 AM EDT) Hepatitis C Antibody Nonreactive Nonreactive [facility] Comment:Antibodies to HCV no t detected; does not exclude early acuteHCV infection. 04/03/2024 11:3 8 AM EDT 04/03/2024 11:48 AM EDT Generic External Data Provider LAB BLOOD ORDERAB LES Final Result [facility] [address] [place] [phone] * (ABNORMAL) POCT HGB A1C (03/11/2024 5:49 PM EDT) Pathologist [facility] Hemoglobin A1C 6.3(A) 4.0 - 6.0 % QC Media Lot # [id number] Lot# Expiration Date [id number] Blood 03/11/2024 5:49 PM EDT Wicho Desai MD POINT OF CARE TEST ENTER/EDIT OR DERABLES Final Result * (ABNORMAL) Lipid Panel, Standard (01/08/2024 12:04 PM EDT) Triglycerides 143 <150 mg/dL [facility] Comment:Desirable Triglyceri de: less than 150 mg/dLBorderline High Triglyceride 150-199 mg/dLHigh Triglyceride: 200-499 mg/dLVery High Triglyceride: greater than or equal to 5OO mg/dL Cholesterol 187 <200 mg/dL [facility] Comment:Desirable Cholestero l: less than 200 mg/dLBorderline High Cholesterol: 200-239 mg/dLHigh Cholesterol: greater than 239 mg/dL LDL Cholesterol Calculated 119(H) <100 mg/dL [facility] Comment:Desirable LDL: less than 100 mg/dLNear Optimal/Above Optimal LDL: 110- 129 mg/dLBorderline High LDL: 130-159 mg/dLHigh LDL: 160-189 mg/dLVery High LDL: greater than or equal to 190 mg/dL HDL Cholesterol 40(L) >40 mg/dL [facility] Comment:Desirable HDL: great er than 40 mg/dL Note: This HDL assay may give artificially low results in patients with liver disease. Blood Venous blood specimen / Unknown 01/08/2024 12:04 PM EDT 01/08/2024 1:04 PM EDT us Jamila Beebe MD LAB BLOOD ORDERABLES Final Result [facility] [address] [place] [phone] * Mammography Report 1 (05/01/2022 11:34 AM EST) Anatomical Region Laterality Modality Breast Bilateral Mammography 05/01/2022 11:3 4 AM EST Narrative 05/01/2022 12:16 PM EST Refer to the Notes tab for result details [facility] Procedure: Mammography Report 1 Procedure Note Provider, MD Armen - 09/10/2022 Refer to the Notes tab for result details [facility] Procedure: Mammography Report 1 us Kimberley Tavares [employer] IMG BI PROCEDURES Final Result * HPV mRNA E6/E7 (08/28/2019 10:30 AM EDT) HPV mRNA E6/E7 Not Detected NOT DETECTED [facility] Comment: This test was performed using the APTIMA(R) HPV Assay ([employer] This assay detects E6/E7 viral messenger RNA (mRNA) from 14 high-risk HPV types (16,18,31,33,35,39,45,51, 52,56,58,59,66,68). For additional information please refer to: http://education.[employer].Xiaoi Robert/faq/SXI465v8 (This link is being provided for informational/ educational purposes only.) The analytical performance characteristics of this assay have been determined by [employer] [place], [place]. The modifications have not been cleared or approved by the FDA. This assay has been validated pursuant to the CLIA regulations and is used for clinical purposes. Test Performed by [employer] [employer] [address] [address] Tam Reeder M.D., Ph.D., Director of Laboratories , [facility] [id number] Please note: ??Effective 02/28/2016, HPV testing will be performed using [employer]'s APTIMA test which targets mRNA. Detecting mRNA instead of DNA, as in older methods, offers significant improvements in specificity. 08/28/2019 10:3 0 AM EDT us Jamila Beebe MD HISTORICAL/NON ORDERA BLE LABS Final Result [facility] [address] from Last 3 Months or Most Recently Relevant to Health Maintenance [place] [address] [address] - [employer] Care Teams Lead Technician Relationship Specialty Start Date End Date Jamila Robledo MD [address] [place] [address] PCP - General Family Medicine 05/02/19
--- OUTSIDE RECORDS SUMMARY | 2024-08-29 15:45 | XMS_ITS | Encounter Summary ---
Author Organization [employer] Address [address] [place] [address] Care Team Providers Care Driver Guide Name Role Phone Jamila Robledo MD Primary Care Provide r Reason for Visit * Reason Onset Date Comments Med Change Request 03/11/2024 Encounter Details Date Type Department Care Team ([facility] Contact Info) Description 03/11/2024 Telephone [facility] [address] [place] [address] Jamila Robledo MD [address] [place] [address] Med Change Request Social History Tobacco Use [...] the past 12 months, has t he [employer], gas, oil or water [employer] threatened to shut off services in your [...] 11:15 AM EDT Office Visit [facility] [address] [place] [phone] Jamila Robledo MD [address] [place] [phone] 09/16/2024 9:30 AM EDT Procedure Visit [facility] [address] [place] [address] [phone] Jamila Robledo MD [address] [place] [phone] 10/10/2024 1:30 PM EDT Office Visit [facility] [address] [place] [address] Traci Singh MD [address] [place] [address] documented as of this encounter Visit Diagnoses Not on filedocumented in this encounter Additional Health Concerns Assessment Noted Time PHQ-9 Depression Total Score: 0 02/06/20 24 2:56 PM EDT documented as of this encounter Care Teams Driver Guide Relationship Specialty Start Date End Date Jamila Robledo MD [address] [place], [place] [phone] PCP - General Family Medicine 05/02/19 documented as of this encounter
--- OUTSIDE RECORDS SUMMARY | 2024-08-29 15:45 | XMS_ITS ---
Author Name [facility] Organization Unknown Care Team Organization Name Specialty Phone Email Start Date End [facility]
--- OUTSIDE RECORDS SUMMARY | 2024-08-29 15:45 | XMS_ITS | Encounter Summary ---
Author Organization [employer] Address [address] [facility] 7t [place] [address] Care Team Providers Care Boarder Hand Name Role Phone Jamila Robledo MD Primary Care Provide r Reason for Visit * Reason Comments Med Refill Encounter Details Date Type Department Care Team ([facility] st Contact Info) Description 08/08/2023 Refill [facility] [address] [place], [place] [phone] Jamila Robledo MD 230 [place] [address] Psychophysiological insomnia Social History Tobacco Use Types [...] Description 09/15/2024 11:15 AM EDT Office Visit [facility] [address] [place] [phone] Jamila Robledo MD [address] [place] [address] 09/16/2024 9:30 AM EDT Procedure Visit [facility] [address] [place] [address] Jamila Robledo MD [address] [place] [address] 10/10/2024 1:30 PM EDT Office Visit [address] [address] Traci Singh MD [address] [place] [address] documented as of this encounter Visit Diagnoses Diagnosis Psychophysiological insomnia Persistent disorder of initiating or maintaining sleep documented in this encounter Additional Health Concerns Assessment Noted Time PHQ-9 Depression Total Score: 9 11/04/19 23 2:36 PM EDT documented as of this encounter Care Teams Boarder Hand Relationship Specialty Start Date End Date Jamila Robledo MD [address] [place] [phone] PCP - General Family Medicine 05/02/19 documented as of this encounter
--- OUTSIDE RECORDS SUMMARY | 2024-08-29 15:45 | XMS_ITS | Encounter Summary ---
Author Organization [employer] Address [address] [place] [address] [place] [address] Care Team Providers Care Buncher Operator Name Role Phone Jamila Robledo MD Primary Care Provide r Reason for Visit * Reason Comments Med Refill Encounter Details Date Type Department Care Team (Late Contact Info) Description 01/19/2023 Refill [facility] [address] [place] [address] Liza Matos FNP [address] [place] [address] Dept [place] [address] Psychophysiological insomnia Social History Tobacco Use Types [...] Description 09/15/2024 11:15 AM EDT Office Visit [facility] [address] [place] [address] [phone] Jamila Robledo MD 230 [place], [place] [phone] 09/16/2024 9:30 AM EDT Procedure Visit [facility] [address] [place] [address] Jamila Robledo MD [address] [place] [address] [phone] 10/10/2024 1:30 PM EDT Office Visit [facility] [address] [place] [address] [phone] Traci Singh MD [address] [place] [address] [phone] documented as of this encounter Visit Diagnoses Diagnosis Psychophysiological insomnia Persistent disorder of initiating or maintaining sleep documented in this encounter Additional Health Concerns Assessment Noted Time PHQ-9 Depression Total Score: 9 11/04/19 23 2:36 PM EDT documented as of this encounter Care Teams Buncher Operator Relationship Specialty Start Date End Date Jamila Robledo MD [address] [place] [address] [phone] PCP - General Family Medicine 05/02/19 documented as of this encounter
--- OUTSIDE RECORDS SUMMARY | 2024-08-29 15:45 | XMS_ITS | Encounter Summary ---
Author Organization [employer] Address [address] [facility] 7t [place] [address] Care Team Providers Care Brigadier Name Role Phone Jamila Robledo MD Primary Care Provide r Encounter Details Date Type Department Care Team ([facility] Contact Info) Description 03/18/2024 Orders Only [facility] MEDICINE [address] [place], [place] [phone] Jamila Robledo MD [address] [place], [place] [phone] Social History Tobacco Use Types Packs/Day Years [...] the past 12 months, has t he [employer], gas, oil or water [employer] threatened to shut off services in your [...] Office Visit [facility] MED[facility] [address] [place] [address] Jamila Robledo MD [address] [place] [phone] 09/16/2024 9:30 AM EDT Procedure Visit [address] [address] Jamila Robledo MD [address] [place] [address] 10/10/2024 1:30 PM EDT Office Visit [facility] [address] [place] [address] [phone] Traci Singh MD [address] [place] [address] documented as of this encounter Visit Diagnoses Not on filedocumented in this encounter Additional Health Concerns Assessment Noted Time PHQ-9 Depression Total Score: 0 02/06/20 24 2:56 PM EDT documented as of this encounter Care Teams Brigadier Relationship Specialty Start Date End Date Jamila Robledo MD [address] [place] [address] PCP - General Family Medicine 05/02/19 documented as of this encounter
--- OUTSIDE RECORDS SUMMARY | 2024-08-29 15:45 | XMS_ITS | Encounter Summary ---
Author Organization [employer] Address [address] [place] [address] 7t [place] [address] Care Team Providers Care Tooth Grinder Name Role Phone Jamila Robledo MD Primary Care Provide r Reason for Visit * Reason Comments Med Refill Encounter Details Date Type Department Care Team ([facility] Contact Info) Description 11/28/2022 Refill [facility] MED[facility]INE 230 [place] [address] Jamila Robledo MD [address] [place] [address] Acute non-recurrent frontal sinusitis Social History Tobacco [...] Upcoming Encounters Date Type Department Care Team ([facility] Contact Info) Description 09/15/2024 11:15 AM EDT Office Visit [facility] [address] [place] [address] Jamila Robledo MD [address] [place] [address] 09/16/2024 9:30 AM EDT Procedure Visit [address] [address] Jamila Robledo MD [address] [place] [address] 10/10/2024 1:30 PM EDT Office Visit [address] [address] Traci Singh MD [address] [place] [address] documented as of this encounter Visit Diagnoses Diagnosis Acute non-recurrent frontal sinusitis documented in this encounter Additional Health Concerns Assessment Noted Time PHQ-9 Depression Total Score: 9 11/04/19 23 2:36 PM EDT documented as of this encounter Care Teams Tooth Grinder Relationship Specialty Start Date End Date Jamila Robledo MD [address] [place] [address] [phone] PCP - General Family Medicine 05/02/19 documented as of this encounter
== END 2024-08-29 14:05 | disposition home or self-care (01) ==
LOC: HO.CT 14:04
PROVIDERS: PCP Internal Medicine; Visit Provider Otolaryngology
DX: J33.0 Polyp of nasal cavity (principal)
CPT/HCPCS: 70486

== ENCOUNTER → 2024-08-29 14:17 | Outpatient (BNV) | payer OTHER, SELFPAY | PROVIDERS: PCP Internal Medicine; Visit Provider Radiology Diagnostic Radiology | DX: J34.89 Other specified disorders of nose and nasal sinuses (principal) | CPT/HCPCS: 70486 ==

== ENCOUNTER 2024-09-10 08:28 | Outpatient (REF) | payer OTHER, SELFPAY ==
[2024-09-10 21:55] LABS: CT PCR NOT DETECTED (Not Detect.); NG PCR NOT DETECTED (Not Detect.)
[2024-09-17 12:29] LABS: HPV Genotype 16 Negative (Negative); HPV Genotype 18 Negative (Negative); HPV High Risk Negative (Negative)
== END 2024-09-10 08:29 | disposition home or self-care (01) ==
LOC: HO.LNP 08:28
PROVIDERS: PCP Internal Medicine; Visit Provider Obstetrics & Gynecology
DX: N93.9 Abnormal uterine and vaginal bleeding, unspecified (principal); D25.9 Leiomyoma of uterus, unspecified
CPT/HCPCS: 58100; 87491; 87591; 87626; 88175; 88305; 99202

== ENCOUNTER 2024-09-10 08:28 | Outpatient (AMB) | payer OTHER, SELFPAY ==
--- NOTE | 2024-09-10 08:30 | A.OFFVIS_ITS ---
Vital Signs 09/10/24 08:40 Height 5 ft 1 in Weight 180 lb BMI 34.0 Intake Visit Reasons: AUB Intake Note: Per patient didn't have menstrual for 3 months. Got it 3 weeks ago and again this week. Heavy blood flow, painful menses. Director Reactor Projects: Director Reactor Projects Present (Chely) Accompanied by: Self / Same As Patient Allergies famotidine [FAMOTIDINE] Allergy (Mild, Verified 09/10/24 08:41) HEADACHES ENVIRONMENTAL Allergy (Intermediate, Uncoded 08/18/24 12:49) NASAL CONGESTION Is last menstrual period known: Yes Last menstrual period: 09/08/24 Post menopausal: No Patient : No HPI Comments Details: Presenting complaining of irregular menstrual cycles associated with pelvic cramping and passage of blood clots. The following workup was done recently: 08/18/2024 H&H 13.9/40.2 08/12 TSH within normal Last co testing in 09/04 was negative Last mammogram in 05/09was BI-RADS 2 08/18/2024 pelvic ultrasound done emergency room showed the following: Uterus: The uterus is anteverted and measures 10.9 x 5.1 x 8.3 cm. The double wall endometrial thickness is 0.7 cm with fluid within the endometrial canal. The uterus is smooth in contour and has normal myometrial echogenicity. There are multiple hypoechoic lesions. 1. Lesion in anterior lower uterine segment measures 4.9 x 4.4 x 5.3 cm. Previously measured 3.5-3 0.4 x 3.6 cm. 2. Lesion in the posterior upper body of uterus measures 2.1 x 2.0 x 2.5 cm. Previously measured 2.2 x 1.5 x 1.8 cm. 3. Lesion in the anterior mid body of uterus measures 2.5 x 2.4 x 2.2 cm. Previously measured 2.4 x 1.9 x 2.6 cm. 4. Lesion in the mid sob mucosal area measures 0.8 x 0.7 x 0.9 cm. Previously not visualized. There are nabothian cysts in the cervix. Adnexa: Right ovary measures 1.6 x 1.1 x 1.4 cm. Volume 1.3 mL. Focal lesion seen. Left ovary is not visualized. No free fluid seen in the cul-de-sac. [facility] Medical History Bleeding hemorrhoids Chronic back pain Sleep apnea Depression GERD (gastroesophageal reflux disease) Anxiety Hypertension Asthma Tachycardia Surgical History Tubal ligation status H/O hand surgery Hx of foot surgery History of esophagogastroduodenoscopy (EGD) H/O colonoscopy Family History Father Stomach cancer Social History Household Members: Family Alcohol intake: never Patient Tobacco Use Status: Current everyday Tobacco user Tobacco use type: Cigarette Cigarettes Per Day: 10 Years Smoked: 40 Female Reproductive History Menstrual Duration of menses: 3-5 days Date of last menstrual period: 09/08/24 Date of last pap smear: 08/28/19 (negative hpv, negative pap smear) Date of Mammogram: 05/01/22 (bi rad 2) Review of Systems Const All systems reviewed & are unremarkable except as noted in HPI and below Card Reports as per HPI Resp Reports as per HPI GI Reports as per HPI and Reports no additional complaints Reports as per HPI Physical Exam Const General: cooperative, healthy appearing and comfortable Chest Chest palpation & inspection: normal inspection of the chest and normal palpation of entire chest wall Breast/axilla inspection: normal inspection of the breasts and normal inspection of the axillae Breast/axilla palpation: normal palpation of the breasts, normal palpation of the axillae and no axillary lymphadenopathy Resp Effort & Inspection: normal respiratory effort Auscultation: clear to auscultation bilaterally Percussion: percussion normal Cardio Palpation: normal PMI Rate: regular rate Rhythm: regular rhythm Heart sounds: no murmurs and no rubs Peripheral pulses: Peripheral pulses 2+ throughout GI Inspection: Yes normal to inspection Palpation (GI): Soft to palpation, nontender, no guarding, not rigid and No hepatosplenomegaly present Percussion: Yes normal to percussion Auscultation: normal bowel sounds Rectal Exam - Female: deferred General: Yes bladder normal to palpation External Female Exam: No lesion Speculum Exam - Vagina: normal appearance of the vagina, normal palpation, normal vaginal discharge and not erythematous Speculum Exam - Cervix: normal appearance of the cervix and normal palpation Bimanual exam- vagina & uterus: normal bimanual exam, normal palpation, bladder normal to palpation, consistency normal, normal palpation and enlarged Bimanual Exam- Adnexa, other: normal adnexae, no masses and no tenderness Office Procedures Endometrial Biopsy Details: The patient was counseled regarding the indication and benefits of endometrial sampling to rule out endometrial pathology including not limited to endometrial hyperplasia or endometrial cancer and others; The alternatives (Either do nothing vs. hysteroscopy D&C) & the risks were discussed with the patient including but not limited: pain, uterine perforation, bleeding, infection, possible injury to bladder, bowel, ureter, possible need for blood transfusion with all its possible risks. The patient verbalized understanding all questions answered and signed consent. Urine test done in the office was negative The patient was placed into the dorsal lithotomy position; a speculum was inserted in the vagina. Using aseptic technique for the procedure, the cervix was cleansed with Betadine. The anterior lip of the cervix was grasped with a single tooth tenaculum. The uterus was sounded to 7 cm with a 4 mm Pipelle was used. Tissues samples were obtained and placed in formalin, in a patient labeled container and sent to the pathology department. At the end of the procedure, there was minimal bleeding noted The patient tolerated the procedure well and was discharged in good condition with the following instructions: Nothing in the vagina until the bleeding stops. No sex until the bleeding stops, to call if any of the following occurs: fever (>100.4), flu-like symptoms, abdominal pain, heavy bleeding, four smelling vaginal discharge. The patient was instructed to schedule a Follow up appointment in 2 weeks to discuss pathology results of the biopsy and treatment options. This note was generated with a voice recognition program. Some errors may have been overlooked during the review of this note. Sometimes these errors may affect the content or meaning of a given sentence. 07533-[id number] Biopsy Assessment & Plan Assessment & Plan (1) Abnormal uterine bleeding (AUB): Code(s): N93.9 - Abnormal uterine and vaginal bleeding, unspecified Category: Medical Plan: UPT done in the office was negative. Co testing done, GC and chlamydia taken, CBC, TSH, and pelvic ultrasound will recently done. Discussed with the patient the different causes of abnormal bleeding including thyroid disorders, uterine and ovarian pathology, endometrial hyperplasia, carcinoma and other potential causes. Discussed with the patient the work up including CBC (to r/o anemia), TSH, pelvic Ultrasound, endometrial biopsy to r/o endometrial pathology. EMB done, see procedure note All questions answered and the patient verbalized understanding. Instructed the patient to schedule a follow-up appointment in 2 weeks. (2) Uterine myoma: Code(s): D25.9 - Leiomyoma of uterus, unspecified Category: Medical Plan: Discussed with the patient the findings on pelvic ultrasound & the risk of myosarcoma; in addition reviewed with the patient that malignancy and pre malignancy cannot be ruled out without hysterectomy for pathological evaluation ; furthermore, explained to the patient the limitation of pelvic ultrasound and endometrial biopsy in the setting. Discussed with the patient the typical symptoms that are caused by myomas including but not limited to pelvic pain, pressure symptoms, abnormal uterine bleeding. In addition discussed with the patient options of treatment for myomas including: Serial ultrasounds periodically to follow-up on the size of the myoma while targeting the treatment against fibroids related symptoms ( control pills, Mirena IUD, progesterone treatment, GnRH agonist/antagonist, uterine artery embolization or endometrial ablation) versus surgical treatment including hysterectomy and or myomectomy. All pros and cons, risks and benefits of all options were discussed with the patient. The patient understands that delay in surgical treatment in case of myosarcoma can affect her prognosis, after further discussion, the patient decided to think about it and get back to us next visit Orders: Orders MM tomosynthesis screening BI Today Z12.31 - Encounter for screening mammogram for malignant neoplasm of breast AMB Endometrial Biopsy Today N93.9 - Abnormal uterine and vaginal bleeding, unspecified Coding Level of Care Code New Pt Level 3 (86924) Procedure Only Diagnoses Abnormal uterine bleeding (AUB) N93.9 Uterine myoma D25.9 CPT Codes Endometrial Biopsy - CPT: 88007-[id number] Biopsy ([id number])
[2024-09-10 08:40] VITALS: BMI 34.0
--- OUTSIDE RECORDS SUMMARY | 2024-09-10 08:52 | XMS_ITS | Encounter Summary ---
Author Organization [employer] Address 75 [facility] 7t [place] [address] Care Team Providers Care Passenger Locomotive Engineer Name Role Phone Jamila Robledo MD Primary Care Provide r Reason for Visit * Reason Onset Date Comments Nurse Triage 08/12/2024 Encounter Details Date Type Department Care Team ([facility] Contact Info) Description 08/12/2024 Telephone [facility] MEDICINE [address] [place], [place] [phone] Jamila Robledo MD [address] [place] [address] Nurse Triage Social History Tobacco Use Types [...] t he electric, gas, oil or water [employer] threatened to shut off services in your [...] 09/15/2024 11:15 AM Jamila Beebe MD MEDICINE [facility] 09/16/2024 9:30 AM Jamila Beebe MD [facility] Insurance verified as active per Real Time Eligibility in [facility]. Positive Triage Question: * Age > [...] Description 09/15/2024 11:15 AM EDT Office Visit [address] [address] Jamila Robledo MD [address] [place] [phone] 09/16/2024 9:30 AM EDT Procedure Visit [address] [address] Jamila Robledo MD [address] [place] [address] 10/10/2024 1:30 PM EDT Office Visit [address] [address] Traci Singh MD [address] [place] [phone] documented as of this encounter Visit Diagnoses Not on filedocumented in this encounter Additional Health Concerns Assessment Noted Time PHQ-9 Depression Total Score: 0 02/06/20 24 2:56 PM EDT documented as of this encounter Care Teams Passenger Locomotive Engineer Relationship Specialty Start Date End Date Jamila Robledo MD [address] [place] [phone] PCP - General Family Medicine 05/02/19 documented as of this encounter
--- OUTSIDE RECORDS SUMMARY | 2024-09-10 08:53 | XMS_ITS | Encounter Summary ---
Author Organization [employer] Address 75 [facility] 7t [place] [address] Care Team Providers Care Insulation Sprayer Name Role Phone aJmila Robledo MD Primary Care Provide r Encounter [...] 09/15/2024 11:15 AM EDT Office Visit [address] [address] Jamila Robledo MD [address] [place] [address] 09/16/2024 9:30 AM EDT Procedure Visit [address] [address] Jamila Robledo MD [address] [place] [address] 10/10/2024 1:30 PM EDT Office Visit [address] [address] Traci Singh MD [address] [place] [address] documented as of this encounter Visit Diagnoses Not on filedocumented in this encounter Additional Health Concerns Assessment Noted Time PHQ-9 Depression Total Score: 0 02/06/20 24 2:56 PM EDT documented as of this encounter Care Teams Insulation Sprayer Relationship Specialty Start Date End Date Jamila Robledo MD [address] [place] [phone] PCP - General Family Medicine 05/02/19 documented as of this encounter
--- OUTSIDE RECORDS SUMMARY | 2024-09-10 08:53 | XMS_ITS | Encounter Summary ---
Author Organization [employer] Address [address] [facility] [address] 7t [place] [address] Care Team Providers Care Dock Superintendent Name Role Phone Jamila Robledo MD Primary Care Provide r Reason for Visit * Reason Comments Med Refill Encounter Details Date Type Department Care Team ([facility] Contact Info) Description 08/18/2024 Refill [facility] [address] [place] [address] Jamila Robledo MD 230 [place] [address] Acute non-recurrent frontal sinusitis Social History Tobacco [...] the past 12 months, has t he [employer], gas, oil or water [employer] threatened to shut off services in your [...] 09/15/2024 11:15 AM EDT Office Visit [facility] MEDICINE [address] [place] [address] Jamila Robledo MD [address] [place] [address] 09/16/2024 9:30 AM EDT Procedure Visit [address] [address] Jamila Robledo MD [address] [place] [address] 10/10/2024 1:30 PM EDT Office Visit [address] [address] Traci Singh MD [address] [place] [address] documented as of this encounter Visit Diagnoses Diagnosis Acute non-recurrent frontal sinusitis documented in this encounter Additional Health Concerns Assessment Noted Time PHQ-9 Depression Total Score: 0 02/06/20 24 2:56 PM EDT documented as of this encounter Care Teams Dock Superintendent Relationship Specialty Start Date End Date Jamila Robledo MD 230 [place] [address] PCP - General Family Medicine 05/02/19 documented as of this encounter
--- OUTSIDE RECORDS SUMMARY | 2024-09-10 08:53 | XMS_ITS | Encounter Summary ---
Author Organization [facility] Address [address] 7t [place] [address] Care Team Providers Care Foundation Coordinator Name Role Phone Jamila Robledo MD Primary Care Provide r Reason for Visit * Reason Onset Date Comments Med Refill 08/13/2024 Encounter Details Date Type Department Care Team ([facility] [address] Contact Info) Description 08/13/2024 Refill [facility] [address] [place] [address] Jamila Robledo MD [address] [place] [address] Social History Tobacco Use Types Packs/Day Years [...] t he electric, gas, oil or water [email or web address] threatened to shut off services in your [...] Office Visit [facility] [address] [place] [phone] Jamila Robledo MD [address] [place] [address] 09/16/2024 9:30 AM EDT Procedure Visit [address] [address] Jamila Robledo MD [address] [place] [address] 10/10/2024 1:30 PM EDT Office Visit [address] [address] Traci Singh MD [address] [place] [address] [phone] documented as of this encounter Visit Diagnoses Not on filedocumented in this encounter Additional Health Concerns Assessment Noted Time PHQ-9 Depression Total Score: 0 02/06/20 24 2:56 PM EDT documented as of this encounter Care Teams Foundation Coordinator Relationship Specialty Start Date End Date Jamila Robledo MD [address] [place] [address] PCP - General Family Medicine 05/02/19 documented as of this encounter
--- OUTSIDE RECORDS SUMMARY | 2024-09-10 08:53 | XMS_ITS | Encounter Summary ---
Author Organization [facility] Address [address] [place] [address] 7t [place] [address] Care Team Providers Care Hardness Tester Name Role Phone Jamila Robledo MD Primary Care Provide r Reason for Referral * Consultation (Routine) - Authorized Specialty Diagnoses / Procedures Referred By Erik heath Referred To Contact Obstetrics and Gynecology Diagnoses Abnormal vaginal bleeding Aide Bishop MD [address] [place] [address] Phone: tel: fax: [facility] [address] 5[address] Floor [address] (Main Hospital Entrance) [place], [place] Phone: tel: fax: Referral ID Status Reason Start Date Expiration Date Visits Requested Visits Authorized [id number] Authorized Specialty Services Required 08/13/2024 08/13/2025 1 1 * Imaging (Routine) - Closed Specialty Diagnoses / Procedures Referred By Erik t Referred To Contact Radiology Diagnoses Abnormal vaginal bleeding Procedures US Pelvis Transvaginal Aide Bishop MD [address] [place] [address] Phone: tel: fax: [facility] [address] [place] [address] Phone: tel: fax: Referral ID Status Reason Start Date Expiration Date Visits Re quested Visits Authorized [id number] Closed 08/13/2024 08/13/2025 1 1 Reason for Visit * Reason Comments Vaginal Bleeding Encounter Details Date Type Department Care Team ([facility] st Contact Info) Description 08/13/2024 9:20 AM EST Office Visit [facility] [address] [place] [address] Aide Bishop MD [address] [place] [address] Abnormal vaginal bleeding (Primary Dx) Social History [...] t he electric, gas, oil or water [employer] threatened to shut off services in your [...] substances. Is not currently established with an CLINICAL RESEARCH NURSE COORDINATOR. She reports she has had a low [...] bleeding x2 days. Not currently established with CLINICAL RESEARCH NURSE COORDINATOR. Abdominal exam benign. -ordered CBC, TSH, iron panel, and BMP. -ordered transvaginal US -referred to CLINICAL RESEARCH NURSE COORDINATOR -prescribed medroxyPROGESTERone 5 mg, TID x5days Relevant Medications medroxyPROGESTERone (Provera) 5 MG tablet Other Relevant Orders CBC auto differential TSH with Reflex to Free T4 Iron And Total Iron Binding Capacity Ferritin US Pelvis Transvaginal Basic Metabolic Panel Referral to Obstetrics / Gynecology -No evidence of acute disease process. Etiology unknown. Symptoms moderate. Hemodynamically stable. -Ordered labs, US and referred to CLINICAL RESEARCH NURSE COORDINATOR. -ER precautions discussed. -Seek medical attention for [...] bleeding x2 days. Not currently established with CLINICAL RESEARCH NURSE COORDINATOR. Abdominal exam benign. -ordered CBC, TSH, iron panel, and BMP. -ordered transvaginal US -referred to CLINICAL RESEARCH NURSE COORDINATOR -prescribed medroxyPROGESTERone 5 mg, TID x5days documented in this encounter Plan of Treatment Upcoming Encounters Date Type Department Care Team (Late st Contact Info) Description 09/15/2024 11:15 AM EDT Office Visit [address] [address] Jamila Robledo MD [address] [place] [address] 09/16/2024 9:30 AM EDT Procedure Visit [address] [address] Jamila Robledo MD [address] [place] [address] 10/10/2024 1:30 PM EDT Office Visit [address] [address] Traci Singh MD [address] [place] [address] Scheduled Orders Name Type Priority Associated Diagnoses [...] EST) Sodium 141 135 - 145 mmol/L [facility] Potassium 3.2(L) 3.3 - 5.1 mmol/L [facility] Chloride 104 96 - 108 mmol/L [facility] Carbon Dioxide 29 22 - 29 mmol/L [facility] Anion Gap 11(L) 12 - 20 [facility] Urea Nitrogen (BUN) 14 9 - 16 mg/dL [facility] Creatinine, Serum 0.53 0.5 - 1.4 mg/dL [facility] Estimated Glomerular Filt Rate >60 [facility] Comment:Chronic Kidney Disea se: Estimated GFR < 60 mL/min/[id number] Kidney Disease: Estimated GFR < 15 mL/min/1.73m2 Glucose 114 60 - 115 mg/dL [facility] Calcium 8.8 8.4 - 10.2 mg/dL [facility] Blood Venous blood specimen / Unknown 08/13/2024 10:02 AM EST 08/13/2024 11:08 AM EST us Aide Bishop MD LAB BLOOD ORDERABLES Final Result [facility] [address] [place] [address] [phone] * Ferritin (08/13/2024 10:02 AM EST) Ferritin 155 10 - 250 ng/mL [facility] Blood Venous blood specimen / Unknown 08/13/2024 10:02 AM EST 08/13/2024 11:08 AM EST Aide Bishop MD LAB BLOOD ORDERABLES Final Result [facility] [address] [place] [address] [phone] * Iron And Total Iron Binding Capacity (08/13/2024 10:02 AM EST) Iron 99 30 - 160 mcg/dL [facility] Total Iron Binding Capacity 314 228 - 428 mcg/dL [facility] Percent Iron Saturation 32 15 - 50 % [facility] Unsaturated Iron Binding 215 ug/dL [facility] Blood Venous blood specimen / Unknown 08/13/2024 10:02 AM EST 08/13/2024 11:08 AM EST Aide Bishop MD LAB BLOOD ORDERABLES Final Result Performing Organization Address City/[facility]/ZIP Co de Phone Number [facility] [address] [place] [phone] * TSH with Reflex to Free T4 (08/13/2024 10:02 AM EST) TSH reflex Free T4 0.63 0.32 - 4.0 uIU/mL [facility] Blood 08/13/2024 10:0 2 AM EST 08/13/2024 11:08 AM EST Aide Bishop MD LAB BLOOD ORDERABLES Final Result Performing Organization Address City/[facility]/ZIP Co de Phone Number [facility] [address] [place] [phone] * (ABNORMAL) CBC auto differential (08/13/2024 10:02 AM EST) White Blood Count 4.9 4.8 - 10.8 X10*3/uL [facility] Red Blood Count 5.00 4.20 - 5.50 X10*6/uL [facility] Hemoglobin 14.3 12.0 - 16.0 g/dl [facility] Hematocrit 42.4 37.0 - 47.0 % [facility] Mean Corpuscular Volume 84.8 80.0 - 98.0 fL [facility] Mean Corpuscular Hemoglobin 28.6 27.0 - 33.0 pg [facility] Mean Corpuscular HGB Conc 33.7 31.0 - 35.0 g/dl [facility] Red Cell Distribution Width 13.7 11.0 - 16.0 % [facility] Platelet Count 240 160 - 400 X10*3/uL [facility] Mean Platelet Volume 10.1 9.4 - 12.3 fL [facility] Neutrophils Percent Auto 47.6 45 - 73 % [facility] Imm Gran Pct Auto 0.2 0.0 - 0.4 % [facility] Lymphocytes Percent Auto 33.1 20 - 40 % [facility] Monocytes Percent Auto 9.9 2 - 11 % [facility] Eosinophils Percent Auto 8.2(H) 0 - 4 % [facility] Basophils Percent Auto 1.0 0 - 2 % [facility] NRBC Pct Auto 0.0 0.0 - 0.2 /100WBC [facility] Neutrophils Absolute Auto 2.3 2.0 - 8.3 x10*3/uL [facility] Imm Gran Abs Auto 0.01 0.00 - 0.03 X10*3/uL [facility] Lymphocytes Absolute Auto 1.6 1.2 - 4.9 X10*3/uL [facility] Monocytes Absolute Auto 0.5 0.1 - 1.2 X10*3/uL [facility] Eosinophils Absolute Auto 0.4 0.0 - 0.4 X10*3/uL [facility] Basophils Absolute Auto 0.1 0.0 - 0.2 X10*3/uL [facility] NRBC Abs Auto 0.000 0.0 - 0.012 X10*3/uL [facility] Blood Venous blood specimen / Unknown 08/13/2024 10:02 AM EST 08/13/2024 11:08 AM EST us Aide Bishop MD LAB BLOOD ORDERABLES Final Result Performing Organization Address City/State/[facility] Co de Phone Number [facility] [address] [place] [phone] documented in this encounter Visit Diagnoses Diagnosis Abnormal vaginal bleeding- Primary Other specified noninflammatory disorder of vagina documented in this encounter Additional Health Concerns Assessment Noted Time PHQ-9 Depression Total Score: 0 02/06/20 24 2:56 PM EDT documented as of this encounter Care Teams Hardness Tester Relationship Specialty Start Date End Date Jamila Robledo MD [address] [place] [address] PCP - General Family Medicine 05/02/19 documented as of this encounter
--- OUTSIDE RECORDS SUMMARY | 2024-09-10 08:53 | XMS_ITS | Encounter Summary ---
Author Organization [employer] Address [address] [facility] 7t [place] [address] Care Team Providers Care Rubber Press Operator Name Role Phone Jamila Robledo MD Primary Care Provide r Reason for Visit * Reason Onset Date Comments Nurse Triage 08/18/2024 Encounter Details Date Type Department Care Team ([facility] Contact Info) Description 08/18/2024 Telephone [facility] [address] [place], [place] [phone] Jamila Robledo MD [address] [place] [address] Nurse Triage Social History Tobacco Use Types [...] t he electric, gas, oil or water [employer] threatened to shut off services in your [...] center on 08/13 and has referral for VP OF MARKETING, order for U/S and some labs ordered. [...] 3 days The caller accepted this outcome. [phone] documented in this encounter Plan of Treatment Upcoming Encounters Date Type Department Care Team (Late st Contact Info) Description 09/15/2024 11:15 AM EDT Office Visit [facility] [address] [place] [address] Jamila Robledo MD [address] [place] [address] 09/16/2024 9:30 AM EDT Procedure Visit [facility] [address] [place] [address] Jamila Robledo MD [address] [place] [address] 10/10/2024 1:30 PM EDT Office Visit [facility] [address] [place] [address] Traci Singh MD [address] [place] [address] documented as of this encounter Visit Diagnoses Not on filedocumented in this encounter Additional Health Concerns Assessment Noted Time PHQ-9 Depression Total Score: 0 02/06/20 24 2:56 PM EDT documented as of this encounter Care Teams Rubber Press Operator Relationship Specialty Start Date End Date Jamila Robledo MD [address] [place] [address] PCP - General Family Medicine 05/02/19 documented as of this encounter
--- OUTSIDE RECORDS SUMMARY | 2024-09-10 08:53 | XMS_ITS | Encounter Summary ---
Author Organization [employer] Address [address] [facility] 7t [place] [address] Care Team Providers Care Fish Housekeeper Name Role Phone Jamila Robledo MD Primary Care Provide r Reason for Visit * Reason Comments sick onsite Encounter Details Date Type Department Care Team ([facility] Contact Info) Description 08/18/2024 11:15 AM EST Office Visit [facility] [address] [place], [place] [phone] Leslie Peres NP [address] [place], [place] [phone] Lower abdominal pain (Primary Dx) Social History [...] EDT Office Visit [facility] [address] [place] [address] Jamila Robledo MD [address] [place] [address] 09/16/2024 9:30 AM EDT Procedure Visit [facility] [address] [place] [address] [phone] Jamila Robledo MD [address] [place] [address] [phone] 10/10/2024 1:30 PM EDT Office Visit [facility] [address] [place] [address] [phone] Traci Singh MD [address] [place] [address] [phone] Scheduled Orders Name Type Priority Associated Diagnoses [...] documented as of this encounter Care Teams Fish Housekeeper Relationship Specialty Start Date End Date Jamila Robledo MD [address] [place] [address] [phone] PCP - General Family Medicine 05/02/19 documented as of this encounter
--- OUTSIDE RECORDS SUMMARY | 2024-09-10 08:53 | XMS_ITS | Encounter Summary ---
Author Organization [employer] Address [address] [facility] [address] 7[address] [place] [address] Care Team Providers Care Presser All Around Name Role Phone Jamila Robledo MD Primary Care Provide r Encounter Details Date Type Department Care Team ([facility] Contact Info) Description 08/21/2024 Telephone [facility] [address] [place] [address] Madina Corrales RN Social History Tobacco Use [...] Description 09/15/2024 11:15 AM EDT Office Visit [facility] [address] [place] [address] Jamila Robledo MD [address] [place] [address] 09/16/2024 9:30 AM EDT Procedure Visit [facility] [address] [place] [address] Jamila Robledo MD [address] [place] [address] 10/10/2024 1:30 PM EDT Office Visit [facility] [address] [place] [address] Traci Singh MD [address] [place] [address] documented as of this encounter Visit Diagnoses Not on filedocumented in this encounter Additional Health Concerns Assessment Noted Time PHQ-9 Depression Total Score: 0 02/06/20 24 2:56 PM EDT documented as of this encounter Care Teams Presser All Around Relationship Specialty Start Date End Date Jamila Robledo MD [address] [place] [address] PCP - General Family Medicine 05/02/19 documented as of this encounter
--- OUTSIDE RECORDS SUMMARY | 2024-09-10 08:53 | XMS_ITS | Encounter Summary ---
Author Organization [employer] Address [address] [facility] 7t [place] [address] Care Team Providers Care Decommissioning Well Site Manager Name Role Phone Jamila Robledo MD Primary Care Provide r Reason for Visit * Reason Onset Date Comments Results 08/13/2024 Encounter Details Date Type Department Care Team ([facility] Contact Info) Description 08/13/2024 Telephone [facility] [address] [place], [place] [phone] Aide Bishop MD [address] [place] [address] Results Social History Tobacco Use Types Packs/Day [...] Miscellaneous Notes * Telephone Encounter - Nadia Bailey RN - 08/13/2024 3:11 PM EST Called pt to advise that potassium level came back slightly low and Dr Bishop sent potassium supplement to [facility] pharmacy on file to take. Reviewed med instructions: Take 1 tablet (20 mEq) by mouth 3times daily. Advised pt med should be ready for pickup this afternoon. Pt verbalized understanding,to call clinic with questions. * Telephone Encounter - Nadia Bailey RN - 08/13/2024 3:09 PM EST ----- [...] 11:15 AM EDT Office Visit [facility] [address] [place] [phone] Jamila Robledo MD [address] [place] [address] 09/16/2024 9:30 AM EDT Procedure Visit [address] [address] Jamila Robledo MD [address] [place], [place] [phone] 10/10/2024 1:30 PM EDT Office Visit [address] [address] Traci Singh MD [address] [place] [address] documented as of this encounter Visit Diagnoses Not on filedocumented in this encounter Additional Health Concerns Assessment Noted Time PHQ-9 Depression Total Score: 0 02/06/20 24 2:56 PM EDT documented as of this encounter Care Teams Decommissioning Well Site Manager Relationship Specialty Start Date End Date Jamila Robledo MD [address] [place] [address] [phone] PCP - General Family Medicine 05/02/19 documented as of this encounter
--- OUTSIDE RECORDS SUMMARY | 2024-09-10 08:53 | XMS_ITS | Encounter Summary ---
Author Organization [employer] Address [address] [facility] 7t [place] [address] Care Team Providers Care Mental Health Program Specialist Name Role Phone Jamila Robledo MD Primary Care Provide r Reason for Visit * Reason Onset Date Comments Results 08/13/2024 Encounter Details Date Type Department Care Team ([facility] Contact Info) Description 08/13/2024 Telephone [facility] [address] [place], [place] [phone] Jamila Robledo MD [address] [place] [address] Results Social History Tobacco Use Types Packs/Day [...] , CBC Date when done: 08/13/2024 Facility: [facility] documented in this encounter Plan of Treatment Upcoming Encounters Date Type Department Care Team (Late st Contact Info) Description 09/15/2024 11:15 AM EDT Office Visit [facility] [address] [place] [address] Jamila Robledo MD [address] [place] [address] 09/16/2024 9:30 AM EDT Procedure Visit [facility] [address] [place] [address] Jamila Robledo MD [address] [place] [phone] 10/10/2024 1:30 PM EDT Office Visit [facility] [address] [place] [address] [phone] Traci Singh MD [address] [place] [phone] documented as of this encounter Visit Diagnoses Not on filedocumented in this encounter Additional Health Concerns Assessment Noted Time PHQ-9 Depression Total Score: 0 02/06/20 24 2:56 PM EDT documented as of this encounter Care Teams Mental Health Program Specialist Relationship Specialty Start Date End Date Jamila Robledo MD [address] [place] [phone] PCP - General Family Medicine 05/02/19 documented as of this encounter
--- OUTSIDE RECORDS SUMMARY | 2024-09-10 08:53 | XMS_ITS | Encounter Summary ---
Author Organization [employer] Address [address] [facility] [address] 7[address] [place] [address] Care Team Providers Care Vegetable Handler Name Role Phone Jamila Robledo MD Primary Care Provide r Encounter Details Date Type Department Care Team ([facility] Contact Info) Description 08/13/2024 Orders Only [facility] [address] [place] [address] [phone] Aide Bishop MD [address] [place] [address] Hypokalemia Social History Tobacco Use Types Packs/Day [...] the past 12 months, has t he [employer], gas, oil or water [employer] threatened to shut off services in your [...] Description 09/15/2024 11:15 AM EDT Office Visit [address] [address] Jamila Robledo MD [address] [place] [phone] 09/16/2024 9:30 AM EDT Procedure Visit [address] [address] Jamila Robledo MD [address] [place] [address] 10/10/2024 1:30 PM EDT Office Visit [address] [phone] Traci Singh MD [address] [place] [phone] documented as of this encounter Visit Diagnoses Diagnosis Hypokalemia Hypopotassemia documented in this encounter Additional Health Concerns Assessment Noted Time PHQ-9 Depression Total Score: 0 02/06/20 24 2:56 PM EDT documented as of this encounter Care Teams Vegetable Handler Relationship Specialty Start Date End Date Jamila Robledo MD [address] [place] [address] PCP - General Family Medicine 05/02/19 documented as of this encounter
--- OUTSIDE RECORDS SUMMARY | 2024-09-10 08:53 | XMS_ITS | Encounter Summary ---
Author Organization [employer] Address [address] [facility] 7t [place] [address] Care Team Providers Care Primer Inserting Machine Operator Name Role Phone Jamila Robledo MD Primary Care Provide r Encounter Details Date Type Department Care Team ([facility] Contact Info) Description 08/18/2024 Orders Only GENERIC [...] 11:15 AM EDT Office Visit [facility] [address] [place] [address] Jamila Robledo MD [address] [place] [phone] 09/16/2024 9:30 AM EDT Procedure Visit [address] [address] Jamila Robledo MD [address] [place] [phone] 10/10/2024 1:30 PM EDT Office Visit [address] [address] Traci Singh MD [address] [place] [address] [phone] as of this encounter Procedures Procedure [...] EST Narrative 08/18/2024 3:05 PM EST ? [facility] ?[address] ?[place] [address] ? Ultrasound Report ? Signed ? Patient: Conner,Rohini ?MR#: [id number] ? : 1975 ?Acct:[id number] ? Age/Sex: 49 / F ?ADM Date: 08/18/24 ? Loc: HO.ED ? Attending Dr: ? Ordering Physician: Pina Gruber ?? Date of Service: 08/18/24 ?? Procedure(s): US pelvic and transvaginal ?? Accession Number(s): [id number] ? cc: Jamila Robledo MD; Pina Gruber [...] DD/ 1323 ? TD/TT: 08/18/24 1346 ? Commercial Banker: MSM ? Procedure Note Guilherme, Image - 08/18/2024 [address] [place] [address] Ultrasound Report Signed Patient: Elham Conner#: [id number] : 1975Acct:[id number] Age/Sex: 49 / FADM Date: 08/18/24 Loc: HO.ED Attending Dr: Ordering Physician: Pina Gruber Date of Service: 08/18/24 Procedure(s): US pelvic and transvaginal Accession Number(s): [id number] cc: Jamila Robledo MD; Pina Gruber EXAMINATION: [...] 08/18/24 1502 DD/ 1323 TD/TT: 08/18/24 1346 Commercial Banker: [facility] External Provider IMG US PROCEDURES Final Result * SARS-CoV-2 RNA, Influenza A/B, and RSV RNA, Ql NAAT (08/18/2024 1:07 PM EST) Influenza A PCR NEGATIVE Negative [facility] Influenza B PCR NEGATIVE Negative [facility] Resp Syncy Virus RNA Qual PCR NEGATIVE Negative [facility] SARS COV2 PCR NEGATIVE Negative [facility] Comment:All test results mus t [...] use by authorized laboratories.Testing performed on the [employer] GeneXpert utilizingreal-time RT-PCR.All SARS CoV2 and positive influenza A/B results arereported to [facility]. 08/18/2024 1:07 PM EST 08/18/2024 1:14 PM EST Generic External Data Provider LAB MICROBIOLOGY - GENERAL ORDERABLES Final Result [facility] [address] [place] [address] [phone] * Magnesium (08/18/2024 1:07 PM EST) Magnesium 1.9 1.6 - 2.6 mg/dL [facility] 08/18/2024 1:07 PM EST 08/18/2024 1:14 PM EST us Generic External Data Provider LAB BLOOD ORDERAB LES Final Result [facility] [address] [place] [address] [phone] * (ABNORMAL) Comprehensive Metabolic Panel (08/18/2024 1:07 PM EST) Sodium 140 135 - 145 mmol/L [facility] Potassium 3.1(L) 3.3 - 5.1 mmol/L [facility] Chloride 100 96 - 108 mmol/L [facility] Carbon Dioxide 30(H) 22 - 29 mmol/L [facility] Anion Gap 13 12 - 20 [facility] Urea Nitrogen (BUN) 14 9 - 16 mg/dL [facility] Creatinine, Serum 0.62 0.5 - 1.4 mg/dL [facility] Creatinine Clr Calc Pharmacy 106.3 [facility] Comment:Provided height and weight: 154.94 cm,81.647 kg.eGFR (calculated from the MDRD study equation) and eCrCl(calculated from the Cockcroft-Gault equation) are based ondifferent parameters and may not yield comparable results.If eCrCl result is absurd, please check patient'sheight/weight. Estimated Glomerular Filt Rate >60 [facility] Comment:Chronic Kidney Disea se: Estimated GFR < 60 mL/min/1.37o9Rixglg Kidney Disease: Estimated GFR < 15 mL/min/1.73m2 Glucose 103 60 - 115 mg/dL [facility] Calcium 9.3 8.4 - 10.2 mg/dL [facility] Bilirubin, Total 0.2 0.0 - 1.0 mg/dL [facility] Aspartate Amino Transferase 26 5 - 31 U/L [facility] Alanine Aminotransferase 37(H) 0 - 31 U/L [facility] Total Protein 7.5 6.5 - 8.0 g/dL [facility] Albumin Level 4.0 3.5 - 5.0 g/dL [facility] Alkaline Phosphatase 87 39 - 117 U/L [facility] 08/18/2024 1:07 PM EST 08/18/2024 1:14 PM EST us Generic External Data Provider LAB BLOOD ORDERAB LES Final Result [facility] [address] [place] [address] [phone] * (ABNORMAL) CBC auto differential (08/18/2024 1:07 PM EST) White Blood Count 6.3 4.8 - 10.8 X10*3/uL [facility] Red Blood Count 4.81 4.20 - 5.50 X10*6/uL [facility] Hemoglobin 13.9 12.0 - 16.0 g/dl [facility] Hematocrit 40.2 37.0 - 47.0 % [facility] Mean Corpuscular Volume 83.6 80.0 - 98.0 fL [facility] Mean Corpuscular Hemoglobin 28.9 27.0 - 33.0 pg [facility] Mean Corpuscular HGB Conc 34.6 31.0 - 35.0 g/dl [facility] Red Cell Distribution Width 13.4 11.0 - 16.0 % [facility] Platelet Count 233 160 - 400 X10*3/uL [facility] Mean Platelet Volume 9.9 9.4 - 12.3 fL [facility] Neutrophils Percent Auto 48.1 45 - 73 % [facility] Imm Gran Pct Auto 0.3 0.0 - 0.4 % [facility] Lymphocytes Percent Auto 34.1 20 - 40 % [facility] Monocytes Percent Auto 7.6 2 - 11 % [facility] Eosinophils Percent Auto 8.8(H) 0 - 4 % [facility] Basophils Percent Auto 1.1 0 - 2 % [facility] NRBC Pct Auto 0.0 0.0 - 0.2 /100WBC [facility] Neutrophils Absolute Auto 3.0 2.0 - 8.3 x10*3/uL [facility] Imm Gran Abs Auto 0.02 0.00 - 0.03 X10*3/uL [facility] Lymphocytes Absolute Auto 2.2 1.2 - 4.9 X10*3/uL [facility] Monocytes Absolute Auto 0.5 0.1 - 1.2 X10*3/uL [facility] Eosinophils Absolute Auto 0.6(H) 0.0 - 0.4 X10*3/uL [facility] Basophils Absolute Auto 0.1 0.0 - 0.2 X10*3/uL [facility] NRBC Abs Auto 0.000 0.0 - 0.012 X10*3/uL [facility] 08/18/2024 1:07 PM EST 08/18/2024 1:14 PM EST us Generic External Data Provider LAB BLOOD ORDERAB LES Final Result [facility] [address] [place] [address] [phone] * Chlamydia/N. Gonorrhoeae RNA, TMA, Urogenitial (08/18/2024 12:53 PM EST) CT PCR NOT DETECTED Not Detect. [facility] Comment:A not detected test [...] psychologicalconsequences. NG PCR NOT DETECTED Not Detect. [facility] Comment:A not detected test [...] PM EST 08/18/2024 4:41 PM EST Narrative [facility] - 08/19/2024 1:15 PM EST Urine [facility] - [facility] YUSUF DIAMOND Final Result [facility] [address] [place] [phone] * (ABNORMAL) Bacterial Vaginosis (08/18/2024 12:00 AM EST) TRICHOMONAS VAGINALIS DETECTION BY PCR NOT DETECTED Not Detect [facility] BACTERIAL VAGINOSIS DETECTION BY PCR POSITIVE(A) Negative [facility] Comment:The BV organism targ [...] DETECTION BY PCR NOT DETECTED Not Detect [facility] Temi glab krusei PCR NOT DETECTED Not Detect [facility] 08/18/2024 08/18/2024 4:4 6 PM EST us Leslie Kaplaneleazar ASSOCIATE TEACHER LAB MICROBIOLOGY - GENERAL YUSUF DIAMOND Final Result [facility] [address] [place] [phone] [phone] documented in this encounter Visit Diagnoses Not on filedocumented in this encounter Additional Health Concerns Assessment Noted Time PHQ-9 Depression Total Score: 0 02/06/20 24 2:56 PM EDT documented as of this encounter Care Teams Primer Inserting Machine Operator Relationship Specialty Start Date End Date Jamila Robledo MD [address] [place] [address] PCP - General Family Medicine 05/02/19 documented as of this encounter
--- OUTSIDE RECORDS SUMMARY | 2024-09-10 08:53 | XMS_ITS | Encounter Summary ---
Author Organization [employer] Address [address] [facility] 7t [place] [address] Care Team Providers Care Spark Tester Name Role Phone Jamila Robledo MD Primary Care Provide r Encounter Details Date Type Department Care Team ([facility] Contact Info) Description 08/21/2024 Orders Only [facility] [address] [place], [place] [phone] Leslie Peres NP [address] [place] [address] Bacterial vaginosis (Primary Dx) Social History Tobacco [...] the past 12 months, has t he [employer], gas, oil or water [employer] threatened to shut off services in your [...] Description 09/15/2024 11:15 AM EDT Office Visit [address] [address] Jamila Robledo MD [address] [place] [address] 09/16/2024 9:30 AM EDT Procedure Visit [address] [address] Jamila Robledo MD [address] [place] [address] 10/10/2024 1:30 PM EDT Office Visit [address] [address] Traci Singh MD [address] [place] [address] documented as of this encounter Visit Diagnoses Diagnosis Bacterial vaginosis- Primary Unspecified vaginitis and vulvovaginitis documented in this encounter Additional Health Concerns Assessment Noted Time PHQ-9 Depression Total Score: 0 02/06/20 24 2:56 PM EDT documented as of this encounter Care Teams Spark Tester Relationship Specialty Start Date End Date Jamila Robledo MD [address] [place] [address] PCP - General Family Medicine 05/02/19 documented as of this encounter
--- OUTSIDE RECORDS SUMMARY | 2024-09-10 08:53 | XMS_ITS | Encounter Summary ---
Author Organization [employer] Address [address] [facility] 7t [place] [address] Care Team Providers Care Central Scheduler Name Role Phone Jamila Robledo MD Primary Care Provide r Encounter Details Date Type Department Care Team ([facility] Contact Info) Description 08/29/2024 Orders Only [facility] External Provider, [facility] Social History Tobacco Use Types Packs/Day Years [...] Description 09/15/2024 11:15 AM EDT Office Visit [facility] [address] [place] [phone] Jamila Robledo MD [address] [place] [address] 09/16/2024 9:30 AM EDT Procedure Visit [address] [address] Jamila Robledo MD [address] [place] [address] 10/10/2024 1:30 PM EDT Office Visit [address] [address] Traci Singh MD [address] [place] [address] documented as of this encounter Procedures Procedure Name Priority Date/Time Associated Diagnosis Comments CT SINUS WO CONTRAST Routine 08/29/2024 2:17 PM EDT documented in this encounter Results * CT Sinus w/o Contrast (08/29/2024 2:17 PM EDT) Anatomical Region Laterality Modality Computed Tomogra phy 08/29/2024 2:17 PM EDT Narrative 08/29/2024 3:33 PM EDT ? [facility] ?[address] ?[place] [address] ? CT Scan Report ? Signed ? Patient: Conner,Rohini ?MR#: [id number] ? : 1975 ?Acct:[id number] ? Age/Sex: 49 / F ?ADM Date: 08/29/24 ? Loc: HO.CT ? Attending Dr: James Willett ? Ordering Physician: James Willett ?? Date of Service: 08/29/24 ?? Procedure(s): CT sinus wo IV con ?? Accession Number(s): [id number] ? cc: Jamila Robledo MD; James Willett ? Report Number: ?? [id number]: Total DLP = ??127.00 mGy-cm ?? EXAMINATION: [...] DD/ 1417 ? TD/TT: 08/29/24 1440 ? Military Technology Specialist: ? Procedure Note Donotuseinterpreter, Image - 08/29/[address] [address] Scan Report Signed Patient: Elham Conner#: [id number] : 1975Acct:[id number] Age/Sex: 49 / FADM Date: 08/29/24 Loc: HO.CT Attending Dr: James Willett Ordering Physician: James Willett Date of Service: 08/29/24 Procedure(s): CT sinus wo IV con Accession Number(s): [id number] cc: Jamila Robledo MD; James Willett Report Number: [id number]: Total DLP = 127.00 mGy-cm EXAMINATION: CT [...] 08/29/24 1528 DD/ 1417 TD/TT: 08/29/24 1440 Military Technology Specialist: [facility] External Provider IMG CT PROCEDURES Final Result documented in this encounter Visit Diagnoses Not on filedocumented in this encounter Additional Health Concerns Assessment Noted Time PHQ-9 Depression Total Score: 0 02/06/20 24 2:56 PM EDT documented as of this encounter Care Teams Central Scheduler Relationship Specialty Start Date End Date Jamila Robledo MD [address] [place] [phone] PCP - General Family Medicine 05/02/19 documented as of this encounter
--- OUTSIDE RECORDS SUMMARY | 2024-09-10 08:54 | XMS_ITS | Encounter Summary ---
Author Organization [employer] Address [address] [facility] 7t [place] [address] Care Team Providers Care Yeast Culture Operator Name Role Phone Jamila Robledo MD Primary Care Provide r Reason for Visit * Reason Onset Date Comments Nurse Triage 02/27/2024 Encounter Details Date Type Department Care Team ([facility] Contact Info) Description 02/27/2024 Telephone [facility] [address] [place], [place] [phone] Jamila Robledo MD [address] [place] [address] Nurse Triage Social History Tobacco Use Types [...] the past 12 months, has t he [employer], gas, oil or water [employer] threatened to shut off services in [...] to check this. Advised to come to [facility] open till 8pm today and th, fri, 830a-4p. Pt agrees with this disposition and will come to [facility] probably in the morning. Insurance [...] Office Visit [facility] [address] [place] [address] Jamila Robledo MD [address] [place] [phone] 09/16/2024 9:30 AM EDT Procedure Visit [address] [address] Jamial Robledo MD [address] [place] [address] 10/10/2024 1:30 PM EDT Office Visit [address] [address] Traci Singh MD [address] [place] [phone] documented as of this encounter Visit Diagnoses Not on filedocumented in this encounter Additional Health Concerns Assessment Noted Time PHQ-9 Depression Total Score: 0 02/06/20 24 2:56 PM EDT documented as of this encounter Care Teams Yeast Culture Operator Relationship Specialty Start Date End Date Jamila Robledo MD [address] [place] [phone] PCP - General Family Medicine 05/02/19 documented as of this encounter
--- OUTSIDE RECORDS SUMMARY | 2024-09-10 08:54 | XMS_ITS | Encounter Summary ---
Author Organization [employer] Address 75 [facility] 7t [place] [address] Care Team Providers Care Database Administration Associate Name Role Phone Jamila Robledo MD Primary Care Provide r Encounter Details Date Type Department Care Team ([facility] Contact Info) Description 03/18/2024 Orders Only [facility] [address] [place], [place] [phone] Jamila Robledo MD [address] [place], [place] [phone] Social History Tobacco Use Types Packs/Day Years [...] the past 12 months, has t he [email or web address], gas, oil or water [employer] threatened to shut off services in [...] Description 09/15/2024 11:15 AM EDT Office Visit [facility] [address] [place] [phone] Jamila Robledo MD [address] [place] [phone] 09/16/2024 9:30 AM EDT Procedure Visit [address] [address] Jamila Robledo MD [address] [place] [phone] 10/10/2024 1:30 PM EDT Office Visit [facility] [address] [place] [address] [phone] Traci Singh MD [address] [place] [phone] documented as of this encounter Visit Diagnoses Not on filedocumented in this encounter Additional Health Concerns Assessment Noted Time PHQ-9 Depression Total Score: 0 02/06/20 24 2:56 PM EDT documented as of this encounter Care Teams Database Administration Associate Relationship Specialty Start Date End Date Jamila Robledo MD [address] [place] [address] PCP - General Family Medicine 05/02/19 documented as of this encounter
--- OUTSIDE RECORDS SUMMARY | 2024-09-10 08:54 | XMS_ITS | Clinical Summary ---
Author Organization [employer] Address [address] [place] [address] 7t [place] [address] Care Team Providers Care Net Web Developer Name Role Phone Jamila Robledo MD [...] 2024 Active Blood Glucose Monitoring Suppl (FreeStyle [place] Lite) w/Device kitIndications: Prediabetes Use to test [...] bleeding x2 days. Not currently established with COMMERCIAL INSTALLER. Abdominal exam benign. -ordered CBC, TSH, iron panel, and BMP. -ordered transvaginal US -referred to COMMERCIAL INSTALLER -prescribed medroxyPROGESTERone 5 mg, TID x5days Right [...] Department Care Team Description 08/29/2024 Orders Only [facility] External Provider, [facility] [place] 08/21/2024 Telephone [facility] [address] [place] [phone] Madina Corrales RN 08/21/2024 Orders Only [address] [address] Leslie Peres NP Bacterial vaginosis (Primary Dx) 08/18/2024 11:15 AM EST Office Visit [address] [address] Leslie Peres NP Lower abdominal pain (Primary Dx) 08/18/2024 Orders Only GENERIC EXTERNAL DATA DEPARTMENT Provider, Generic External Data 08/18/2024 Travel 08/18/2024 Refill [facility] [address] [place] [address] Jamila Robledo MD Acute non-recurrent frontal sinusitis 08/18/2024 Telephone [facility] [address] [place] [phone] Jamila Robledo MD Nurse Triage 08/13/2024 9:20 AM EST Office Visit [facility] [address] [place] [phone] Aide Bishop MD Abnormal vaginal bleeding (Primary Dx) 08/13/2024 Telephone [facility] [address] [place] [phone] Aide Bishop MD Results 08/13/2024 Telephone [facility] [address] [place] [phone] Jamila Robledo MD Results 08/13/2024 Orders Only [facility] [address] [place] [address] Aide Bishop MD Hypokalemia 08/13/2024 Refill [facility] [address] [place] [address] Jamila Robledo MD 08/12/2024 Telephone [facility] [address] [place] [address] Jamila Robledo MD Nurse Triage 07/10/2024 Refill [facility] [address] [place], [place] [phone] Jamila Robledo MD Chronic pansinusitis; Mild persistent asthma without complication; Gastroesophageal reflux disease, unspecified whether esophagitis present; Psychophysiological insomnia 06/17/2024 12:30 PM EST Telemedicine [facility] [address] [place] [phone] Jamila Robledo MD Obesity (BMI 30-39.9) (Primary [...] Description 09/15/2024 11:15 AM EDT Office Visit [facility] [address] [place] [phone] Jamila Robledo MD [address] [place] [phone] 09/16/2024 9:30 AM EDT Procedure Visit [facility] [address] [place] [phone] Jamila Robledo MD [address] [place] [address] 10/10/2024 1:30 PM EDT Office Visit [facility] [address] [place] [address] Traci Singh MD [address] [place] [address] Health Maintenance Due Date Last Done Comments [...] EDT Narrative 08/29/2024 3:33 PM EDT ? [facility] [place] ?[address] ?[place] [address] ? CT Scan Report ? Signed ? Patient: Conner,Rohini ?MR#: [id number] ? : 1975 ?Acct:[id number] ? Age/Sex: 49 / F ?ADM Date: 08/29/24 ? Loc: HO.CT ? Attending Dr: James Willett ? Ordering Physician: James Willett ?? Date of Service: 08/29/24 ?? Procedure(s): CT sinus wo IV con ?? Accession Number(s): [id number] ? cc: Jamila Robledo MD; James Willett ? Report Number: ?? [id number]: Total DLP = ??127.00 mGy-cm ?? EXAMINATION: [...] DD/ 1417 ? TD/TT: 08/29/24 1440 ? Courtroom Deputy Or Calendar Clerk: ? Procedure Note Milton Vanegas - 08/29/[address] [place] [address] [address] Scan Report Signed Patient: Allyssa ConnerR#: [id number] : 1975Acct:[id number] Age/Sex: 49 / FADM Date: 08/29/24 Loc: HO.CT Attending Dr: James Willett Ordering Physician: James Willett Date of Service: 08/29/24 Procedure(s): CT sinus wo IV con Accession Number(s): [id number] cc: Jamila Robledo MD; James Willett Report Number: [id number]: Total DLP = 127.00 mGy-cm EXAMINATION: CT [...] 08/29/24 1528 DD/ 1417 TD/TT: 08/29/24 1440 Courtroom Deputy Or Calendar Clerk: [facility] External Provider IMG CT PROCEDURES Final Result * US Pelvis Transvaginal (08/18/2024 1:23 PM EST) Anatomical Region Laterality Modality Pelvis Ultrasound 08/18/2024 1:23 PM EST Narrative 08/18/2024 3:05 PM EST ? [facility] [place] ?[address] ?[place] [address] ? Ultrasound Report ? Signed ? Patient: Rohini Conner ?MR#: [id number] ? : 1975 ?Acct:[id number] ? Age/Sex: 49 / F ?ADM Date: 08/18/24 ? Loc: HO.ED ? Attending Dr: ? Ordering Physician: Pina Gruber ?? Date of Service: 08/18/24 ?? Procedure(s): US pelvic and transvaginal ?? Accession Number(s): [id number] ? cc: Jamila Robledo MD; Pina Gruber [...] DD/ 1323 ? TD/TT: 08/18/24 1346 ? Courtroom Deputy Or Calendar Clerk: MSM ? Procedure Note Guilherme, Image - 08/18/[address] [address] Ultrasound Report Signed Patient: Allyssa ConnerR#: [id number] : 1975Acct:[id number] Age/Sex: 49 / FADM Date: 08/18/24 Loc: HO.ED Attending Dr: Ordering Physician: Pina Gruber Date of Service: 08/18/24 Procedure(s): US pelvic and transvaginal Accession Number(s): [id number] cc: Jamila Robledo MD; Pina Gruber EXAMINATION: [...] 08/18/24 1502 DD/ 1323 TD/TT: 08/18/24 1346 Courtroom Deputy Or Calendar Clerk: EDSON [facility] External Provider IMG US PROCEDURES Final Result * SARS-CoV-2 RNA, Influenza A/B, and RSV RNA, Ql NAAT (08/18/2024 1:07 PM EST) Influenza A PCR NEGATIVE Negative [facility] Influenza B PCR NEGATIVE Negative [facility] Resp Syncy Virus RNA Qual PCR NEGATIVE Negative [facility] SARS COV2 PCR NEGATIVE Negative [facility] Comment:All test results mus t [...] use by authorized laboratories.Testing performed on the mygola GeneXpert utilizingreal-time RT-PCR.All SARS CoV2 and positive influenza A/B results arereported to [facility]. 08/18/2024 1:07 PM EST 08/18/2024 1:14 PM EST Generic External Data Provider LAB MICROBIOLOGY - GENERAL ORDERABLES Final Result [facility] [address] [place] [address] [phone] * (ABNORMAL) CBC auto differential (08/18/2024 1:07 PM EST) Only the most recent of2 resultswithin the time period is included. White Blood Count 6.3 4.8 - 10.8 X10*3/uL [facility] Red Blood Count 4.81 4.20 - 5.50 X10*6/uL [facility] Hemoglobin 13.9 12.0 - 16.0 g/dl [facility] Hematocrit 40.2 37.0 - 47.0 % [facility] Mean Corpuscular Volume 83.6 80.0 - 98.0 fL [facility] Mean Corpuscular Hemoglobin 28.9 27.0 - 33.0 pg [facility] Mean Corpuscular HGB Conc 34.6 31.0 - 35.0 g/dl [facility] Red Cell Distribution Width 13.4 11.0 - 16.0 % [facility] Platelet Count 233 160 - 400 X10*3/uL [facility] Mean Platelet Volume 9.9 9.4 - 12.3 fL [facility] Neutrophils Percent Auto 48.1 45 - 73 % [facility] Imm Gran Pct Auto 0.3 0.0 - 0.4 % [facility] Lymphocytes Percent Auto 34.1 20 - 40 % [facility] Monocytes Percent Auto 7.6 2 - 11 % [facility] Eosinophils Percent Auto 8.8(H) 0 - 4 % [facility] Basophils Percent Auto 1.1 0 - 2 % [facility] NRBC Pct Auto 0.0 0.0 - 0.2 /100WBC [facility] Neutrophils Absolute Auto 3.0 2.0 - 8.3 x10*3/uL [facility] Imm Gran Abs Auto 0.02 0.00 - 0.03 X10*3/uL [facility] Lymphocytes Absolute Auto 2.2 1.2 - 4.9 X10*3/uL [facility] Monocytes Absolute Auto 0.5 0.1 - 1.2 X10*3/uL [facility] Eosinophils Absolute Auto 0.6(H) 0.0 - 0.4 X10*3/uL [facility] Basophils Absolute Auto 0.1 0.0 - 0.2 X10*3/uL [facility] NRBC Abs Auto 0.000 0.0 - 0.012 X10*3/uL [facility] 08/18/2024 1:07 PM EST 08/18/2024 1:14 PM EST Generic External Data Provider LAB BLOOD ORDERAB LES Final Result Performing Organization Address [facility]/ZIP Co de Phone Number [facility] [address] [place] [phone] * Magnesium (08/18/2024 1:07 PM EST) [facility] Magnesium 1.9 1.6 - 2.6 mg/dL [facility] 08/18/2024 1:07 PM EST 08/18/2024 1:14 PM EST Generic External Data Provider LAB BLOOD ORDERAB LES Final Result Performing Organization Address [facility] Co de Phone Number [facility] [address] [place] [phone] * (ABNORMAL) Comprehensive Metabolic Panel (08/18/2024 1:07 PM EST) Pathologist [facility] Sodium 140 135 - 145 mmol/L [facility] Potassium 3.1(L) 3.3 - 5.1 mmol/L [facility] Chloride 100 96 - 108 mmol/L [facility] Carbon Dioxide 30(H) 22 - 29 mmol/L [facility] Anion Gap 13 12 - 20 [facility] Urea Nitrogen (BUN) 14 9 - 16 mg/dL [facility] Creatinine, Serum 0.62 0.5 - 1.4 mg/dL [facility] Creatinine Clr Calc Pharmacy 106.3 [facility] Comment:Provided height and weight: 154.94 cm,81.647 kg.eGFR (calculated from the MDRD study equation) and eCrCl(calculated from the Cockcroft-Gault equation) are based ondifferent parameters and may not yield comparable results.If eCrCl result is absurd, please check patient'sheight/weight. Estimated Glomerular Filt Rate >60 [facility] Comment:Chronic Kidney Disea se: Estimated GFR < 60 mL/min/1.20k5Hamrvf Kidney Disease: Estimated GFR < 15 mL/min/1.73m2 Glucose 103 60 - 115 mg/dL [facility] Calcium 9.3 8.4 - 10.2 mg/dL [facility] Bilirubin, Total 0.2 0.0 - 1.0 mg/dL [facility] Aspartate Amino Transferase 26 5 - 31 U/L [facility] Alanine Aminotransferase 37(H) 0 - 31 U/L [facility] Total Protein 7.5 6.5 - 8.0 g/dL [facility] Albumin Level 4.0 3.5 - 5.0 g/dL [facility] Alkaline Phosphatase 87 39 - 117 U/L [facility] 08/18/2024 1:07 PM EST 08/18/2024 1:14 PM EST us Generic External Data Provider LAB BLOOD ORDERAB LES Final Result [facility] [address] [place] [phone] * Chlamydia/N. Gonorrhoeae RNA, TMA, Urogenitial (08/18/2024 12:53 PM EST) CT PCR NOT DETECTED Not Detect. [facility] Comment:A not detected test result [...] psychologicalconsequences. NG PCR NOT DETECTED Not Detect. [facility] Comment:A not detected test result [...] PM EST 08/18/2024 4:41 PM EST Narrative [facility] - 08/19/2024 1:15 PM EST Urine Leslie Peres NP LAB MICROBIOLOGY - [facility] YUSUF DIAMOND Final Result [facility] [address] [place] [phone] * (ABNORMAL) Bacterial Vaginosis (08/18/2024 12:00 AM EST) TRICHOMONAS VAGINALIS DETECTION BY PCR NOT DETECTED Not Detect [facility] BACTERIAL VAGINOSIS DETECTION BY PCR POSITIVE(A) Negative [facility] Comment:The BV organism targ ets [...] DETECTION BY PCR NOT DETECTED Not Detect [facility] Temi glab krusei PCR NOT DETECTED Not Detect [facility] 08/18/2024 08/18/2024 4:4 6 PM EST Leslie Peres INVESTMENT ACCOUNTING CLERK LAB MICROBIOLOGY - GENERAL ORDE RABLES Final Result Performing Organization Address City/[facility]/ZIP Co de Phone Number [facility] [address] [place] [phone] * TSH with Reflex to Free T4 (08/13/2024 10:02 AM EST) TSH reflex Free T4 0.63 0.32 - 4.0 uIU/mL [facility] Blood 08/13/2024 10:0 2 AM EST 08/13/2024 11:08 AM EST Aide Bishop MD LAB BLOOD ORDERABLES Final Result Performing Organization Address [facility] Co de Phone Number [facility] [address] [place] [phone] * Iron And Total Iron Binding Capacity (08/13/2024 10:02 AM EST) Iron 99 30 - 160 mcg/dL [facility] Total Iron Binding Capacity 314 228 - 428 mcg/dL [facility] Percent Iron Saturation 32 15 - 50 % [facility] Unsaturated Iron Binding 215 ug/dL [facility] Blood Venous blood specimen / Unknown 08/13/2024 10:02 AM EST 08/13/2024 11:08 AM EST Aide Bishop MD LAB BLOOD ORDERABLES Final Result Performing Organization Address [facility]/ZIP Co de Phone Number [facility] [address] [place] [phone] * Ferritin (08/13/2024 10:02 AM EST) Pathologist [facility] Ferritin 155 10 - 250 ng/mL [facility] Blood Venous blood specimen / Unknown 08/13/2024 10:02 AM EST 08/13/2024 11:08 AM EST Aide Bishop MD LAB BLOOD ORDERABLES Final Result Performing Organization Address [facility]/ZIP Ms de Phone Number [facility] [address] [place] [address] [phone] * (ABNORMAL) Basic Metabolic Panel (08/13/2024 10:02 AM EST) [facility] Sodium 141 135 - 145 mmol/L [facility] Potassium 3.2(L) 3.3 - 5.1 mmol/L [facility] Chloride 104 96 - 108 mmol/L [facility] Carbon Dioxide 29 22 - 29 mmol/L [facility] Anion Gap 11(L) 12 - 20 [facility] Urea Nitrogen (BUN) 14 9 - 16 mg/dL [facility] Creatinine, Serum 0.53 0.5 - 1.4 mg/dL [facility] Estimated Glomerular Filt Rate >60 [facility] Comment:Chronic Kidney Disea se: Estimated GFR < 60 mL/min/1.53q0Bbckyj Kidney Disease: Estimated GFR < 15 mL/min/1.73m2 Glucose 114 60 - 115 mg/dL [facility] Calcium 8.8 8.4 - 10.2 mg/dL [facility] Blood Venous blood specimen / Unknown 08/13/2024 10:02 AM EST 08/13/2024 11:08 AM EST Aide Bishop MD LAB BLOOD ORDERABLES Final Result Performing Organization Address [facility] Co de Phone Number [facility] [address] [place] [phone] * Hepatitis C Ab (04/03/2024 11:38 AM EDT) Hepatitis C Antibody Nonreactive Nonreactive [facility] Comment:Antibodies to HCV no t detected; does not exclude early acuteHCV infection. 04/03/2024 11:3 8 AM EDT 04/03/2024 11:48 AM EDT Generic External Data Provider LAB BLOOD ORDERAB LES Final Result [facility] [address] [place] [phone] * (ABNORMAL) POCT HGB A1C (03/11/2024 5:49 PM EDT) Pathologist [facility] Hemoglobin A1C 6.3(A) 4.0 - 6.0 % QC Media Lot # [id number] Lot# Expiration Date [id number] Blood 03/11/2024 5:49 PM EDT Wicho Desai MD POINT OF CARE TEST ENTER/EDIT OR DERABLES Final Result * (ABNORMAL) Lipid Panel, Standard (01/08/2024 12:04 PM EDT) Triglycerides 143 <150 mg/dL [facility] Comment:Desirable Triglyceri de: less than 150 mg/dLBorderline High Triglyceride 150-199 mg/dLHigh Triglyceride: 200-499 mg/dLVery High Triglyceride: greater than or equal to 5OO mg/dL Cholesterol 187 <200 mg/dL [facility] Comment:Desirable Cholestero l: less than 200 mg/dLBorderline High Cholesterol: 200-239 mg/dLHigh Cholesterol: greater than 239 mg/dL LDL Cholesterol Calculated 119(H) <100 mg/dL [facility] Comment:Desirable LDL: less than 100 mg/dLNear Optimal/Above Optimal LDL: 110- 129 mg/dLBorderline High LDL: 130-159 mg/dLHigh LDL: 160-189 mg/dLVery High LDL: greater than or equal to 190 mg/dL HDL Cholesterol 40(L) >40 mg/dL [facility] Comment:Desirable HDL: great er than 40 mg/dL Note: This HDL assay may give artificially low results in patients with liver disease. Blood Venous blood specimen / Unknown 01/08/2024 12:04 PM EDT 01/08/2024 1:04 PM EDT us Jamila Beebe MD LAB BLOOD ORDERABLES Final Result [facility] [address] [place] [phone] * Mammography Report 1 (05/01/2022 11:34 AM EST) Anatomical Region Laterality Modality Breast Bilateral Mammography 05/01/2022 11:3 4 AM EST Narrative 05/01/2022 12:16 PM EST Refer to the Notes tab for result details [facility] Procedure: Mammography Report 1 Procedure Note Provider, MD Armen - 09/10/2022 Refer to the Notes tab for result details [facility] Procedure: Mammography Report 1 us Kimberley Tavares COSTUMING SUPERVISOR IMG BI PROCEDURES Final Result * HPV mRNA E6/E7 (08/28/2019 10:30 AM EDT) HPV mRNA E6/E7 Not Detected NOT DETECTED [facility] Comment: This test was performed using the APTIMA(R) HPV Assay ([employer] This assay detects E6/E7 viral messenger RNA (mRNA) from 14 high-risk HPV types (16,18,31,33,35,39,45,51, 52,56,58,59,66,68). For additional information please refer to: http://education.[employer]/faq/KGI374a1 (This link is being provided for informational/ educational purposes only.) The analytical performance characteristics of this assay have been determined by [employer] [place], [place]. The modifications have not been cleared or approved by the FDA. This assay has been validated pursuant to the CLIA regulations and is used for clinical purposes. Test Performed by [employer] [address] [address] Tam Reeder M.D., Ph.D., Director of Laboratories , [facility] [id number] Please note: ??Effective 02/28/2016, HPV testing will be performed using [employer]'s APTIMA test which targets mRNA. Detecting mRNA instead of DNA, as in older methods, offers significant improvements in specificity. 08/28/2019 10:3 0 AM EDT us Jamila Beebe MD HISTORICAL/NON ORDERA BLE LABS Final Result [facility] Anywhere [address] from Last 3 Months or Most Recently Relevant to Health Maintenance [place] [address] [address] - [employer] Care Teams Net Web Developer Relationship Specialty Start Date End Date Jamila Robledo MD [address] [place] [address] PCP - General Family Medicine 05/02/19
--- OUTSIDE RECORDS SUMMARY | 2024-09-10 08:54 | XMS_ITS | Encounter Summary ---
Author Organization [employer] Address [address] [facility] [address]t [place] [address] Care Team Providers Care Consumer Electronics Merchandiser Name Role Phone Jamila Robledo MD Primary Care Provide r Reason for Visit * Reason Comments Med Change Request Encounter Details Date Type Department Care Team ([facility] Contact Info) Description 06/28/2023 Refill [facility] [address] [place], [place] [phone] Ruth Costello FNP [address] [place] [address] Upper back pain on left side Social [...] Description 09/15/2024 11:15 AM EDT Office Visit [facility] [address] [place] [phone] Jamila Robledo MD [address] [place] [phone] 09/16/2024 9:30 AM EDT Procedure Visit [facility] [address] [place] [phone] Jamila Robledo MD [address] [place] [phone] 10/10/2024 1:30 PM EDT Office Visit [address] [address] Traci Singh MD [address] [place] [phone] documented as of this encounter Visit Diagnoses Diagnosis Upper back pain on left side documented in this encounter Additional Health Concerns Assessment Noted Time PHQ-9 Depression Total Score: 9 11/04/19 23 2:36 PM EDT documented as of this encounter Care Teams Consumer Electronics Merchandiser Relationship Specialty Start Date End Date Jamila Robledo MD [address] [place] [phone] PCP - General Family Medicine 05/02/19 documented as of this encounter
--- OUTSIDE RECORDS SUMMARY | 2024-09-10 08:54 | XMS_ITS | Encounter Summary ---
Author Organization [employer] Address [address] [facility] [address] [place] [address] Care Team Providers Care Rn Quality Name Role Phone Jamila Robledo MD Primary Care Provide r Reason for Visit * Reason Onset Date Comments Med Change Request 03/11/2024 Encounter Details Date Type Department Care Team ([facility] Contact Info) Description 03/11/2024 Telephone [facility] [address] [place] [address] Jamila Robledo MD [address] [place] [address] Med Change Request Social History Tobacco Use [...] the past 12 months, has t he [employer], gas, oil or water [employer] threatened to shut off services in your [...] 11:15 AM EDT Office Visit [facility] [address] [place] [phone] Jamila Robledo MD [address] [place] [phone] 09/16/2024 9:30 AM EDT Procedure Visit [facility] [address] [place] [phone] Jamila Robledo MD [address] [place] [phone] 10/10/2024 1:30 PM EDT Office Visit [facility] [address] [place] [address] Traci Singh MD [address] [place] [address] documented as of this encounter Visit Diagnoses Not on filedocumented in this encounter Additional Health Concerns Assessment Noted Time PHQ-9 Depression Total Score: 0 02/06/20 24 2:56 PM EDT documented as of this encounter Care Teams Rn Quality Relationship Specialty Start Date End Date Jamila Robledo MD [address] [place], [place] [phone] PCP - General Family Medicine 05/02/19 documented as of this encounter
--- OUTSIDE RECORDS SUMMARY | 2024-09-10 08:54 | XMS_ITS | Encounter Summary ---
Author Organization [employer] Address [address] [facility] 7t [place] [address] Care Team Providers Care Coremaker Machine Name Role Phone Jamila Robledo MD Primary Care Provide r Reason for Visit * Reason Comments Med Refill Encounter Details Date Type Department Care Team ([facility] st Contact Info) Description 08/08/2023 Refill [facility] [address] [place], [place] [phone] Jamila Robledo MD [address] [place] [address] Psychophysiological insomnia Social History Tobacco Use Types [...] Office Visit [facility] [address] [place] [phone] Jamila Robledo MD [address] [place] [phone] 09/16/2024 9:30 AM EDT Procedure Visit [facility] [address] [place] [address] Jamila Robledo MD [address] [place] [address] 10/10/2024 1:30 PM EDT Office Visit [address] [address] Traci Singh MD [address] [place] [phone] documented as of this encounter Visit Diagnoses Diagnosis Psychophysiological insomnia Persistent disorder of initiating or maintaining sleep documented in this encounter Additional Health Concerns Assessment Noted Time PHQ-9 Depression Total Score: 9 11/04/19 23 2:36 PM EDT documented as of this encounter Care Teams Coremaker Machine Relationship Specialty Start Date End Date Jamila Robledo MD [address] [place] [phone] PCP - General Family Medicine 05/02/19 documented as of this encounter
--- OUTSIDE RECORDS SUMMARY | 2024-09-10 08:54 | XMS_ITS | Encounter Summary ---
Author Organization [employer] Address [address] [place] [address] 7t [place] [address] Care Team Providers Care Financial Reporting Advisor Name Role Phone Jamila Robledo MD Primary Care Provide r Reason for Visit * Reason Comments Med Refill Encounter Details Date Type Department Care Team ([facility] Contact Info) Description 11/28/2022 Refill [facility] [address] [place] [address] Jamila Robledo MD [address] [place] [address] Acute non-recurrent frontal sinusitis Social History Tobacco [...] Upcoming Encounters Date Type Department Care Team ([facility] Contact Info) Description 09/15/2024 11:15 AM EDT Office Visit [facility] [address] [place] [phone] Jamila Robledo MD [address] [place] [address] 09/16/2024 9:30 AM EDT Procedure Visit [address] [address] Jamila Robledo MD [address] [place] [address] 10/10/2024 1:30 PM EDT Office Visit [address] [address] Traci Singh MD [address] [place] [phone] documented as of this encounter Visit Diagnoses Diagnosis Acute non-recurrent frontal sinusitis documented in this encounter Additional Health Concerns Assessment Noted Time PHQ-9 Depression Total Score: 9 11/04/19 23 2:36 PM EDT documented as of this encounter Care Teams Financial Reporting Advisor Relationship Specialty Start Date End Date Jamila Robledo MD [address] [place] [address] [phone] PCP - General Family Medicine 05/02/19 documented as of this encounter
--- OUTSIDE RECORDS SUMMARY | 2024-09-10 08:54 | XMS_ITS | Encounter Summary ---
Author Organization [employer] Address [address] [facility] 7t [place] [address] Care Team Providers Care Draw Furnace Tender Name Role Phone Jamila Robledo MD Primary Care Provide r Reason for Visit * Reason Comments Med Change Request Encounter Details Date Type Department Care Team ([facility] Contact Info) Description 07/17/2023 Refill [facility] [address] [place], [place] [phone] Ruth Costello FNP [address] [place] [address] Social History Tobacco Use Types Packs/Day Years [...] Description 09/15/2024 11:15 AM EDT Office Visit [facility] [address] [place] [phone] Jamila Robledo MD [address] [place] [phone] 09/16/2024 9:30 AM EDT Procedure Visit [facility] [address] [place] [phone] Jamila Robledo MD [address] [place] [address] 10/10/2024 1:30 PM EDT Office Visit [address] [address] Traci Singh MD [address] [place] [phone] documented as of this encounter Visit Diagnoses Not on filedocumented in this encounter Additional Health Concerns Assessment Noted Time PHQ-9 Depression Total Score: 9 11/04/19 23 2:36 PM EDT documented as of this encounter Care Teams Draw Furnace Tender Relationship Specialty Start Date End Date Jamila Robledo MD [address] [place] [address] [phone] PCP - General Family Medicine 05/02/19 documented as of this encounter
--- OUTSIDE RECORDS SUMMARY | 2024-09-10 08:54 | XMS_ITS | Encounter Summary ---
Author Organization [employer] Address [address] [place] [address] [place] [address] Care Team Providers Care Storm Door Maker Name Role Phone Jamila Robledo MD Primary Care Provide r Reason for Visit * Reason Comments Med Refill Encounter Details Date Type Department Care Team (Late Contact Info) Description 01/19/2023 Refill [facility] [address] [place] [phone] Liza Matos FNP [address] [place] [address] Dept [place] [address] Psychophysiological insomnia Social History Tobacco Use Types [...] Description 09/15/2024 11:15 AM EDT Office Visit [facility] [address] [place] [address] [phone] Jamila Robledo MD 230 [place], [place] [phone] 09/16/2024 9:30 AM EDT Procedure Visit [facility] [address] [place] [address] Jamila Robledo MD [address] [place] [address] [phone] 10/10/2024 1:30 PM EDT Office Visit [facility] [address] [place] [address] [phone] Traci Singh MD [address] [place] [address] [phone] documented as of this encounter Visit Diagnoses Diagnosis Psychophysiological insomnia Persistent disorder of initiating or maintaining sleep documented in this encounter Additional Health Concerns Assessment Noted Time PHQ-9 Depression Total Score: 9 11/04/19 23 2:36 PM EDT documented as of this encounter Care Teams Storm Door Maker Relationship Specialty Start Date End Date Jamila Robledo MD [address] [place] [address] [phone] PCP - General Family Medicine 05/02/19 documented as of this encounter
--- OUTSIDE RECORDS SUMMARY | 2024-09-10 08:54 | XMS_ITS | Data Portability ---
Author Organization [employer] Address [address] [place] [phone] Care Team Providers Care Cover Operator Name Role Phone [facility] Referring Provider [facility] Referring Provider Assessment Encounter Date Assessment Date Assessment LastModified by Organization Details LastModified Time 11/14/2022 11/14/2022 As noted, we were called to see this patient regarding concerns of sinus congestion. Evaluation in the field was performed by my gear generator set up operator colleague, as noted above, I provided [...] despite meds, vision changes, altered mental status. [email or web address] Not available 11/14/2022 15:14:51 Plan of Treatment Reminders Order Date Submit Date Provider Last Modified By Organization Details Last Modified Time Details Appointments None recorded. Lab None recorded. Referral None recorded. Procedures None recorded. Surgeries None recorded. Imaging None recorded. Medication Orders Paxlovid 300 mg (150 mg x 2)-100 mg tablets in a dose pack 2022 023 [facility] am98 [id number], [address] [facility] [place], [address], 3 13:07:58 Patient TargetsNo targets recorded. Patient [...] 3 97 % 97 % 18 /min 10086.6 8 g 98.4 [degF] 83 /min 157.48 cm 134 mm[Hg] 82 mm[Hg] Not Available [employer] 3 13:02:00 Date Recorded Body temperature Body weight Oxygen saturation Oxygen saturation in Arterial blood by Pulse oximetry Respiratory rate Heart rate Systolic blood pressure Diastolic blood pressure Provider Name and Address Organization Details Last Updated DateTime 3 97.1 [degF] 45055.2 4 g 97 % 97 % 16 /min 76 /min 163 mm[Hg] 96 mm[Hg] Not Available [employer] 3 14:04:45 Date Recorded Body weight Body height Body temperature Oxygen saturation Oxygen saturation in Arterial blood by Pulse oximetry Heart rate Respiratory rate Systolic blood pressure Diastolic blood pressure Provider Name and Address Organization Details Last Updated DateTime 3 99822.6 4 g 157.48 cm 97.8 [degF] 95 % 95 % 61 /min 18 /min 124 mm[Hg] 80 mm[Hg] Not Available [employer] 3 11:16:46 Social History None recorded. Functional Status None recorded. Mental Status None recorded. Family History Nothing Reported. Medical History No medical history recorded. Gynecological HistoryNo gynecological history recorded. Obstetrics History GPAL:G 0 P 0 0 0 0 Past Encounters Encounter ID Performer Location Encounter Start Date Encounter Closed Date Diagnosis/Indication Diagnosis SNOMED-CT Code Diagnosis ICD10 Code Diagnosis Note [id number] Sneha Cintron MD [facility] [address] [place] [phone] 11/09/2022 14:04:34 11/10/2022 14:20:47 Acute bacterial sinusitis 73952090 J01.90 47 year old female, being evaluated [...] y changing to an alternativ e regimen. [id number] NEELAM ALVARADO MD [facility] [address] [place] [phone] 11/14/2022 11:16:43 11/15/2022 09:34:22 Congestion of nasal sinus 64170991 R09.81 [id number] Bam Luo MD [facility] [address] [place] [phone] 05/06/2023 13:01:58 05/06/2023 16:22:04 COVID-19 834839814 U07.1 47yo woman presents with URI symptoms [...] levels expected to be safe. Acute COVID-19 [id number] 8 U07.1 We discussed the benefit of Paxlovid to reduce the risk of hospitaliz ation and , and the potential downsides/ side effects, including dysgeusia, headache, COVID rebound, and the possibilit y of medication interactio ns despite my efforts to review medication s and family life counselor on discontinu ation. We discussed alternativ [...] Navarro Member ID Guarantor Name 11/09/2022 1 [facility] - DOS ON OR AFTER 2022 - DUAL ELIGIBLE - [employer] OPTIONS AND ONE CARE (MEDICARE REPLACEMENT/ADV ANTAGE - HMO) Rohini Conner [id number] Rohini Conner 11/14/2022 1 [facility] - DOS ON OR AFTER 2022 - DUAL ELIGIBLE - [employer] OPTIONS AND ONE CARE (MEDICARE REPLACEMENT/ADV ANTAGE - HMO) Rohini Conner [id number] Rohini Conner 05/06/2023 1 [facility] - DOS ON OR AFTER 2022 - DUAL ELIGIBLE - [employer] OPTIONS AND ONE CARE (MEDICARE REPLACEMENT/ADV ANTAGE - HMO) Rohini Conner [id number] Rohini Conner Notes Date Note Type Note [...] process this visit. Sneha Cintron MD [address] [facility],[address], [place], [phone], [employer] 11/09/2022 14:09:36 11/14/2022 text/html CRC Nursing Assessment: Reason For Request: Follow up visit>Sinus infection, which has not gotten better. Chief Complaints: URI PMH: COPD/Asthma, Hypertension, Heart Disease Allergies: No Known Comments: Member was seen by [facility] last week. Member was on antibiotic amoxicillin and completed the course. Member continues to be congested, mild cough from being dry. Member has chills no fever but has pain and sinus pressure . Member has sob when sleeping and has to sleep upright Verified identity by .................. .................. .................. .................. .................. .................. .................. ............... Microbiology Instructor Note From Racheal Singleton: Sent to a call for a pt requesting follow up due to sinus infection. SC8 arrives on scene, pt is alert and oriented, airway is patent. [facility] amox[facility] x 7 [...] expresses Zertec D seems to be ineffective. [facility] suggests changing to Shi and offers to send script for Shi and Saline nasal spray. Pt declines stating she's tried Shi and has Saline nasal spray. Pt advised to follow up with PCP for further evaluation. [facility] sends follow up request to pt's care team. Red flags discussed. Pt has no further questions. .................. .................. .................. .................. .................. .................. .................. ............... Disposition: Fulfilled NEELAM ALVARADO MD [address] [place] [address],[address], [place], [phone], [employer] 11/14/2022 15:15:16 05/06/2023 text/html HPI: I tested [...] .................. .................. .................. .................. .................. .................. ............... Microbiology Instructor Note From Yosi Araujo: [facility] visit for [...] for symptoms with some improvement. Consulted with [facility] Dr. Luo who prescribed paxlovid for patients symptoms. Prescription sent to patients pharmacy. Patient education provided and encouraged to continue with home remedies as well. .................. .................. .................. .................. .................. .................. .................. ............... Disposition: Fulfilled Bam Luo MD [address] [facility],[address], [place], [address], [employer] 05/06/2023 13:08:00 OBGyn Episode No OBEpisode recorded.
== END 2024-09-10 09:28 | disposition home or self-care (01) ==
LOC: HO.HWS 08:28
PROVIDERS: PCP Internal Medicine; Visit Provider Obstetrics & Gynecology
DX: N93.9 Abnormal uterine and vaginal bleeding, unspecified (principal); D25.9 Leiomyoma of uterus, unspecified
CPT/HCPCS: 58100; 99203

== ENCOUNTER 2024-09-23 10:16 | Outpatient (AMB) | payer OTHER, SELFPAY ==
--- NOTE | 2024-09-23 10:19 | A.OFFVIS_ITS ---
Vital Signs 09/23/24 10:22 Height 5 ft 1 in Weight 180 lb BMI 34.0 Intake Visit Reasons: EMB results Allergies famotidine [FAMOTIDINE] Allergy (Mild, Verified 09/10/24 08:41) HEADACHES ENVIRONMENTAL Allergy (Intermediate, Uncoded 08/18/24 12:49) NASAL CONGESTION HPI Comments Details: The patient is presenting for follow-up to discuss the results of her abnormal uterine bleeding workup and options of treatment. The following workup was done.: H&H= 13.9/40.2 TSH, hCG, GC and chlamydia were negative. Endometrial biopsy pathology showed the following: Benign endometrium with extensive glandular and stromal breakdown (lytic endometrium) and abundant blood; no atypia or carcinoma Co testing was done was negative, Mammogram was done 05/09 was BI-RADS 2, new screening mammogram ordered but not scheduled yet Pelvic ultrasound showed the following: Uterus: The uterus is anteverted and measures 10.9 x 5.1 x 8.3 cm. The double wall endometrial thickness is 0.7 cm with fluid within the endometrial canal. The uterus is smooth in contour and has normal myometrial echogenicity. There are multiple hypoechoic lesions. 1. Lesion in anterior lower uterine segment measures 4.9 x 4.4 x 5.3 cm. Previously measured 3.5-3 0.4 x 3.6 cm. 2. Lesion in the posterior upper body of uterus measures 2.1 x 2.0 x 2.5 cm. Previously measured 2.2 x 1.5 x 1.8 cm. 3. Lesion in the anterior mid body of uterus measures 2.5 x 2.4 x 2.2 cm. Previously measured 2.4 x 1.9 x 2.6 cm. 4. Lesion in the mid sob mucosal area measures 0.8 x 0.7 x 0.9 cm. Previously not visualized. There are nabothian cysts in the cervix. Adnexa: Right ovary measures 1.6 x 1.1 x 1.4 cm. Volume 1.3 mL. Focal lesion seen. Left ovary is not visualized. No free fluid seen in the cul-de-sac. [facility] Medical History Bleeding hemorrhoids Chronic back pain Sleep apnea Depression GERD (gastroesophageal reflux disease) Anxiety Hypertension Asthma Tachycardia Surgical History Tubal ligation status H/O hand surgery Hx of foot surgery History of esophagogastroduodenoscopy (EGD) H/O colonoscopy Family History Father Stomach cancer Social History Household Members: Family Alcohol intake: never Patient Tobacco Use Status: Current everyday Tobacco user Tobacco use type: Cigarette Cigarettes Per Day: 10 Years Smoked: 40 Review of Systems Const All systems reviewed & are unremarkable except as noted in HPI and below Reports as per HPI and Reports no additional complaints GI Reports no additional complaints Reports no additional complaints Physical Exam Vital Signs: BMI result Body Mass Index 34.0 Assessment & Plan Assessment & Plan (1) Abnormal uterine bleeding (AUB): Comment: Uterine myomas Code(s): N93.9 - Abnormal uterine and vaginal bleeding, unspecified Category: Medical Plan: Instructed the patient to schedule screening mammogram jay. Discussed with the patient the uterine myomas risks myosarcoma in addition discussed with the patient the different options of treatment including progesterone treatment, uterine artery embolization, endometrial ablation and hysterectomy, the patient is interested in definitive surgical management. Explained to the patient the different types of hysterectomies including, vaginal, laparoscopic assisted vaginal, robotic assisted laparoscopic,& abdominal with BSO. All pros, cons, r/b of each approach were discussed the patient including evidence that morbidity is less and recovery is shorter with minimally invasive approaches to hysterectomy. Discussed with the patient the l ack of availability of the robot DaVinci robot and/or minimally invasive fundraising coordinator specialist at [facility]. Refer to [facility] minimally invasive chemical machine tender. Instructed the patient to call our office back in case a referral appointment is not scheduled, missed or canceled so that we will assist on rescheduling another appointment, the patient verbalized understanding agreed with the plan. Coding Level of Care Code Est Pt Level 3 (52305) Diagnoses Abnormal uterine bleeding (AUB) N93.9
[2024-09-23 10:22] VITALS: BMI 34.0
--- OUTSIDE RECORDS SUMMARY | 2024-09-23 12:08 | XMS_ITS | Encounter Summary ---
Author Organization [employer] Address [address] [place] [address] [place] [address] Care Team Providers Care Advertising Writer Name Role Phone Jamila Robledo MD Primary Care Provide r Reason for Visit * Reason Comments Med Refill Encounter Details Date Type Department Care Team (Late Contact Info) Description 01/19/2023 Refill [facility] [address] [place] [phone] Liza Matos FNP [address] [place] [address] Dept [place] [address] Psychophysiological insomnia Social History Tobacco Use Types [...] Department Care Team (Late Contact Info) Description 10/10/2024 1:30 PM EDT Office Visit [facility] [address] [place] [address] [phone] Traci Singh MD [address] [place], [place] [phone] documented as of this encounter Visit Diagnoses Diagnosis Psychophysiological insomnia Persistent disorder of initiating or maintaining sleep documented in this encounter Additional Health Concerns Assessment Noted Time PHQ-9 Depression Total Score: 9 11/04/19 23 2:36 PM EDT documented as of this encounter Care Teams Advertising Writer Relationship Specialty Start Date End Date Jamila Robledo MD [address] [place] [address] PCP - General Family Medicine 05/02/19 documented as of this encounter
--- OUTSIDE RECORDS SUMMARY | 2024-09-23 12:08 | XMS_ITS | Clinical Summary ---
Author Organization [facility] Address [address] [place] [address] [address] [place] [address] Care Team Providers Care Ripsaw Matcher Name Role Phone Jamila Robledo MD [...] needed for wheezing. 75 mL 11 Active triamcinolone (Kenalog) 0.1 % creamIndication s:Rash Apply topically if needed in the morning and at bedtime (pain and swelling). 30 g 2 Active hydroCHLOROthia zide (HYDRODiuril) 25 MG tabletIndicatio ns:Hypokalemia Take 1 tablet (25 mg) by mouth Once per day. 30 tablet 11 024 2024 Active fluticasone furoate (Arnuity Ellipta) 200 MCG/ACT inhaler TAKE 1 PUFF BY MOUTH ONCE A DAY 30 each 3 Active FREESTYLE LITE test stripIndication s:Prediabetes Use to test blood sugar 2 times daily 100 each 12 024 2024 Active Blood Glucose Monitoring Suppl (FreeStyle [place] Lite) w/Device kitIndications: Prediabetes Use to test [...] blood sugar twice daily). 1 each 11 Active famotidine (Pepcid) 20 MG tabletIndicatio ns:Epigastric pain TAKE 1 TABLET BY MOUTH TWICE A DAY 180 tablet 3 Active FreeStyle lancetsIndicati ons:Prediabetes USE TO TEST BLOOD SUGAR 2 TIMES DAILY 100 each Active lisinopril 10 MG tabletIndicatio ns:Chronic pansinusitis TAKE 1 TABLET BY MOUTH EVERY DAY IN THE MORNING 90 tablet 1 Active montelukast (Singulair) 10 MG tabletIndicatio ns:Mild persistent asthma without complication TAKE 1 TABLET BY MOUTH EVERY DAY IN THE EVENING 90 tablet 025 Active omeprazole (PriLOSEC) [address] [...] for 5 days. 15 tablet 025 Active potassium chloride CR (Klor-Con M20) 20 MEQ ER tabletIndicatio ns:Hypokalemia Take 1 tablet (20 mEq) by mouth 3 times daily. Do not crush or chew. 9 tablet 025 2025 Active baclofen (Lioresal) 10 MG tablet TAKE 1 TABLET BY MOUTH 3 TIMES DAILY 90 tablet 025 Active fluticasone (Flonase) 50 MCG/ACT nasal sprayIndication s:Acute non-recurrent frontal sinusitis SPRAY 2 SPRAYS INTO EACH NOSTRIL EVERY DAY NEEDED 32 mL 2 025 Active albuterol 108 (90 Base) MCG/ACT inhalerIndicati ons:Mild persistent asthma without complication INHALE 2 PUFFS BY MOUTH EVERY 4 TO 6 HOURS NEEDED 18 g 1 025 Active LORazepam (Ativan) 1 MG tabletIndicatio ns:Anxiety TAKE 1/2 TO 1 TABLET BY MOUTH 3 TIMES DAILY NEEDED. 15 tablet 025 Active LORazepam (Ativan) 1 MG tabletIndicatio ns:Anxiety TAKE 1/2 TO 1 TABLET BY MOUTH 3 TIMES DAILY NEEDED. 15 tablet 024 2024 Discontinued(R eorder (will not trigger notification to Pharmacy)) albuterol 108 (90 Base) MCG/ACT inhalerIndicati ons:Mild persistent asthma without complication INHALE 2 PUFFS BY MOUTH EVERY 4 TO 6 HOURS NEEDED 18 g 1 024 2024 Discontinued(R eorder (will not trigger notification to Pharmacy)) fluticasone (Flonase) 50 MCG/ACT nasal sprayIndication s:Acute non-recurrent frontal sinusitis SPRAY 2 SPRAYS INTO EACH NOSTRIL EVERY DAY NEEDED 48 mL 1 024 2024 Discontinued baclofen (Lioresal) 10 MG tablet Take 1 tablet (10 mg) by mouth 3 times daily. 90 tablet 025 2024 Discontinued metroNIDAZOLE (Flagyl) 500 MG tabletIndicatio ns:Bacterial vaginosis Take 1 tablet (500 mg) by mouth 2 times daily for 7 days. 14 tablet 025 2024 Active Problems Problem Noted Date Diagnosed Date Nasal polyps 09/15/2024 Assessment & Plan (09/15/2024 12:14 PM EDT): ENT referral done today Screening mammogram for breast cancer 09/15/2024 Urinary incontinence, mixed 09/15/2024 Assessment & Plan (09/15/2024 12:13 PM EDT): I will prescribe for patient pads 2 boxes/month Abnormal vaginal bleeding 08/13/2024 Assessment & Plan (08/13/2024 9:50 AM EST): (a set of twins), irregular periods x1.5 yrs and amenorrhea the last 5 months. Heavy vaginal bleeding x2 days. Not currently established with OPERATIONS EXAMINER. Abdominal exam benign. -ordered CBC, TSH, iron panel, and BMP. -ordered transvaginal US -referred to OPERATIONS EXAMINER -prescribed medroxyPROGESTERone 5 mg, TID x5days Right hip pain 06/17/2024 Trochanteric bursitis of right hip 06/17/2024 Prediabetes 02/06/2024 Assessment & Plan (02/07/2024 4:07 PM EDT): Today extensive discussion was done about life style modifications I advise healthy diet (low calorie) and cardiovascular exercise Hypokalemia 01/08/2024 Assessment & Plan (09/15/2024 12:14 PM EDT): Nephrology referral done today Assessment & Plan (02/07/2024 4:07 PM EDT): [...] as prescribe Asthma 06/25/2012 Assessment & Plan (09/15/2024 12:13 PM EDT): Control continue with same interventions, albuterol was refilled today Assessment & Plan (02/07/2024 4:06 PM EDT): Counseling done to avoid asthma triggers Albuterol nebulization in office Prednisone 60mg for 5 days ED precautions reviewed Assessment & Plan (11/01/2023 11:03 AM EDT): Patient educated to avoid triggers C/w same medications Anxiety 06/25/2012 Assessment & Plan (09/15/2024 12:14 PM EDT): Counseling done I will prescribe her lorazepam just if really needed Encounters Date Type Department Care Team Description 09/17/[address] [address] Jamila Robledo MD DME 09/16/2024 Orders Only [facility] [address] [place] [address] ProviderArmen MD 09/15/2024 11:15 AM EDT Office Visit [address] [address] Jamila Robledo MD Hypokalemia (Primary Dx); Nasal polyps; Screening mammogram for breast cancer; Urinary incontinence, mixed; Mild persistent asthma without complication; Anxiety 09/15/[address] [address] Jamila Robledo MD CHART PREP 09/15/2024 Travel 09/11/2024 Refill [facility] [address] [place] [address] Jamila Robledo MD Acute non-recurrent frontal sinusitis 09/10/2024 Orders Only GENERIC EXTERNAL DATA DEPARTMENT Provider, Generic External Data 08/29/2024 Orders Only [facility] External Provider, [facility] 08/21/[address] [address] Madina Corrales, SEAN 08/21/2024 Orders Only [address] [address] Leslie Perse NP Bacterial vaginosis (Primary Dx) 08/18/2024 11:15 AM EST Office Visit [address] [address] Leslie Peres NP Lower abdominal pain (Primary Dx) 08/18/2024 Orders Only GENERIC EXTERNAL DATA DEPARTMENT Provider, Generic External Data 08/18/2024 Travel 08/18/2024 Refill [facility] [address] [place] [address] Jamila Robledo MD Acute non-recurrent frontal sinusitis 08/18/2024 Telephone [facility] [address] [place] [phone] Jamila Robledo MD Nurse Triage 08/13/2024 9:20 AM EST Office Visit [facility] [address] [place] [phone] Aide Bishop MD Abnormal vaginal bleeding (Primary Dx) 08/13/2024 Telephone [facility] [address] [place] [address] Aide Bishop MD Results 08/13/2024 Telephone [facility] [address] [place] [phone] Jamila Robledo MD Results 08/13/2024 Orders Only [facility] [address] [place] [address] Aide Bishop MD Hypokalemia 08/13/2024 Refill [facility] [address] [place] [address] Jamila Robledo MD 08/12/2024 Telephone [facility] [address] [place] [phone] Jamila Robledo MD Nurse Triage 07/10/2024 Refill [facility] [address] [place] [address] Jamila Robledo MD Chronic pansinusitis; Mild persistent asthma without complication; Gastroesophageal reflux disease, unspecified whether esophagitis present; Psychophysiological insomnia from Last 3 Months Immunizations Name Administration [...] Date Smoking Tobacco: Every Day Cigarettes 0.3 1.3 Started: 2023 Passive Smoke Exposure: Current Smokeless [...] Sign Reading Time Taken Comments Blood Pressure 132/83 09/15/2024 11:15 AM EDT Pulse 86 09/15/2024 11:15 AM EDT Temperature 35.2 ??C (95.4 ??F) 09/15/2024 11:15 AM E DT Respiratory Rate 20 09/15/2024 11:15 AM EDT Oxygen Saturation 99% 09/15/2024 11:15 AM EDT Inhaled Oxygen Concentration - - Weight 87.3 kg (192 lb 8 oz) 09/15/2024 11:15 AM EDT Height 160 cm (5' 3 ) 09/15/2024 11:15 AM EDT Body Mass Index 34.1 09/15/2024 11:15 AM EDT Plan of Treatment Upcoming Encounters Date Type Department Care Team (Late st Contact Info) Description 10/10/2024 1:30 PM EDT Office Visit [facility] [address] [place], [place] [phone] Traci Singh MD [address] [place], [place] [phone] Health Maintenance Due Date Last Done Comments CT Colonography 1975 FIT DNA/Cologuard 1975 FIT 1975 FOBT 1975 HIV Screening 1975 Sigmoidoscopy 1975 Family Planning (PISQ) 1990 Hepatitis B Vaccines (1 of 3 - 19+ 3-dose series) 1994 COVID-19 Vaccine ( - season) 2024 05/02/2021, 09/01/2020 Influenza Vaccine (#1) 2024 02/24/2009 Mammogram 05/01/2024 05/01/2022, 05/1 01/2021, 08/28/2018, Additional history exists SDOH Screening 10/17/2024 10/18/2023 Alcohol/Substance Use Screening 02/05/2025 02/06/2024 Depression Screening 02/05/2025 02/06/2024, 02/06/20 24 Diabetes: Hemoglobin A1C 03/11/202503/11/ 024, 01/08/2024, 10/07/2020 Zoster Vaccines (1 of 2) 2025 Colonoscopy 09/01/2025 09/01/2022 Colorectal Cancer Screening 09/01/2025 Tobacco Screening 09/15/2025 09/15/2024 Lipid Panel 01/07/2029 01/08/2024, 10/07/2020 Cervical Cancer Screening 09/10/2029 HPV/Cotest 09/10/2029 09/10/2024, 08/28/2019 Pap Smear 09/10/2029 09/10/2024 DTaP/Tdap/Td Vaccines (4 - Td or Tdap) [...] Procedure Name Priority Date/Time Associated Diagnosis Comments HEMATOXYLIN AND EOSIN STAIN Routine 09/10/2024 9:48 AM EDT PAP SMEAR Routine 09/10/2024 8:28 AM EDT HPV DNA, LOW/HIGH RISK Routine 09/10/2024 8:28 AM EDT CHLAMYDIA/N. GONORRHOEAE RNA, TMA, UROGENITAL Routine 09/10/2024 8:[address] SINUS WO CONTRAST Routine 08/29/2024 2:17 [...] Routine 01/08/2024 12:04 PM EDT Essential hypertension HM COLONOSCOPY Routine 09/01/2022 9:48 AM EDT MAMMOGRAM GENERIC Routine 05/01/2022 11: 34 AM EST from Last 3 Months or Most Recently Relevant to Health Maintenance Results * Hematoxylin and Eosin Stain (09/10/2024 9:48 AM EDT) 09/10/2024 9:48 AM EDT 09/10/2024 3:10 PM EDT [facility] - 09/11/2024 5:12 PM EDT ----- ------- Name: Rohini Conner ? Age/Sex: 49/F ? : 1975 Unit#: [id number] ?? Attend Dr: Margarito Benoit MD ?Re09/10/24 ?Status: DEP REF ? Location: HO.LNP ?Disch: ? ----- ------- SPEC : [id number] ? RECD: 09/10/24-151 ? STATUS: ??SOUT ? REQ NUM: [id number] ? LAVELL: 09/10/24-59 ? SUBM DR: Margarito Benoit MD ? ENTERED: ??09/10/24-1525 ?SP TYPE: Surgical ? OTHR DR: Jamila Robledo MD ? ORDERED: ??HE Stain/2, Gross Micro L4 ? Diagnosis ?? Endometrium, biopsy: ??Benign endometrium with extensive glandular and stromal breakdown ?? (lytic endometrium) and abundant blood; no atypia or carcinoma. ?Clinical History AUB ?Microscopic Description Microscopic sections reviewed. ? Material Received ?? EMB ? Gross Description Received in formalin labeled only as to patient identification is a 2.0 x 2.0 x 1.0 cm aggregate of multiple tubular cast fragments of congested and hemorrhagic red- maroon tissue and blood, submitted in toto in cassettes A1 and A2. CEDS Copies To: ?? Jamila Robledo MD ?? [facility] ?? [address] [facility] ?? [place] [address] ?? [phone] ?? Margarito Benoit MD ?? [facility] ?? [address] [place] [address] Drive [address] ?? [place] [address] ?? [phone] ----- ------- Signed (signature on file) Kaia Warsaw 09/11/24 1712 ? ----- ------- ? END OF REPORT ? us Generic External Data Provider LAB BLOOD ORDERAB LES Final Result [facility] [address] [place] [phone] * HPV DNA, Low/High Risk (09/10/2024 8:28 AM EDT) [facility] HPV High Risk Negative Negative [facility] HPV Genotype 16 Negative Negative [facility] HPV Genotype 18 Negative Negative [facility] Comment:HPV testing performe d at [facility] (CLIA#[id number]), [address] [place] [address].Testing for HPV was performed using the Ginette LAWRENCE 6800system. The presence of HPV in the female genital tract isassociated with a number of diseases, including cervicalcarcinoma. The HPV DNA high risk pool tests for HPV 31, 33,35, 39, 45, 51, 52, 56, 58, 59, 66 and 68. The testing forHPV 16 and 18 genotypes has also been performed. A positiveresult indicates detection of nucleic acid sequences fromone or more subtypes, whereas a negative result indicatessuch sequences were not detected. 09/10/2024 8:28 AM EDT 09/11/2024 7:08 AM EDT us Generic External Data Provider LAB BLOOD ORDERAB LES Final Result [facility] [address] [place] [address] [phone] * Chlamydia/N. Gonorrhoeae RNA, TMA, Urogenitial (09/10/2024 8:28 AM EDT) Only the most recent of2 resultswithin the time period is included. CT PCR NOT DETECTED Not Detect. [facility] Comment:A not detected test result [...] psychologicalconsequences. NG PCR NOT DETECTED Not Detect. [facility] Comment:A not detected test result [...] lead to adverse medical, social or psychologicalconsequences. 09/10/2024 8:28 AM EDT 09/10/2024 3:10 PM EDT [facility] - 09/10/2024 9:56 PM EDT Vaginal us Generic External Data Provider LAB MICROBIOLOGY - GENERAL ORDERABLES Final Result [facility] [address] [place] [address] [phone] * Pap Smear (09/10/2024 8:28 AM EDT) 09/10/2024 8:28 AM EDT 09/11/2024 6:05 AM EDT [facility] - 09/16/2024 10:22 AM EDT ----- ------- Name: Rohini Conner ? Age/Sex: 49/F ? : 1975 Unit#: [id number] ?? Attend Dr: Margarito Benoit MD ?Re09/10/24 ?Status: DEP REF ? Location: HO.LNP ?Disch: ? ----- ------- SPEC : [id number] ? RECD: 09/11/24 ? STATUS: ??SOUT ? REQ NUM: [id number] ? LAVELL: 09/10/24 ? SUBM DR: Margarito Benoit MD ? ENTERED: ??09/11/24 ?SP TYPE: Pap Smr ?OTHR DR: Jamila Robledo MD ? ORDERED: ??Pap Smear ? Interpretation ?? Satisfactory for evaluation. ?? Negative for intraepithelial lesion or malignancy. ?? Scant cellularity. ? HPV High Risk: ??Negative ? HPV Genotyping 16: ??Negative ?? HPV Genotyping 18: ??Negative ?Clinical Information LMP: UNK Previous PAP test: UNK Other surgery: Other history: ? Material Received ?? ThinPrep-Cervical Copies To: ?? Jamila Robledo MD ?? [facility] ?? [address] ?? [place] [address] ?? [phone] ?? Margarito Benoit MD ?? [facility] ?? [address] [facility] [address] ?? [place] [address] ?? [phone] ----- ------- Signed (signature on file) TEGAN Tobias ([facility]) 09/16/24 1022 ? ----- ------- ? END OF REPORT ? us Generic External Data Provider LAB CYTOLOGY YUSUF DIAMOND Final Result [facility] [address] [place] [address] [phone] * CT Sinus w/o Contrast (08/29/2024 2:17 PM EDT) Anatomical Region Laterality Modality Computed Tomogra phy 08/29/2024 2:17 PM EDT Narrative 08/29/2024 3:33 PM EDT ? [facility] ?[address] ?[place] [address] ? CT Scan Report ? Signed ? Patient: Conner,Rohini ?MR#: [id number] ? : 1975 ?Acct:[id number] ? Age/Sex: 49 / F ?ADM Date: 03/14/25 ? Loc: HO.CT ? Attending Dr: James Willett ? Ordering Physician: James Willett ?? Date of Service: 08/29/24 ?? Procedure(s): CT sinus wo IV con ?? Accession Number(s): [id number] ? cc: Jamila Robledo MD; James Willett ? Report Number: ?? [id number]: Total DLP = ??127.00 mGy-cm ?? EXAMINATION: [...] DD/ 1417 ? TD/TT: 08/29/24 1440 ? Registered Medical Transcriptionist: ? Procedure Note Milton Vanegas - 08/29/[address] [place] [address] CT Scan Report Signed Patient: Elham Conner#: [id number] : 1975Acct:[id number] Age/Sex: 49 / FADM Date: 08/29/24 Loc: HO.CT Attending Dr: James Willett Ordering Physician: James Willett Date of Service: 08/29/24 Procedure(s): CT sinus wo IV con Accession Number(s): [id number] cc: Jamila Robledo MD; James Willett Report Number: [id number]: Total DLP = 127.00 mGy-cm EXAMINATION: CT [...] 08/29/24 1528 DD/ 1417 TD/TT: 08/29/24 1440 Registered Medical Transcriptionist: [facility] External Provider IMG CT PROCEDURES Final Result * US Pelvis Transvaginal (08/18/2024 1:23 PM EST) Anatomical Region Laterality Modality Pelvis Ultrasound 08/18/2024 1:23 PM EST Narrative 08/18/2024 3:05 PM EST ? [facility] ?[address] ?[place] [address] ? Ultrasound Report ? Signed ? Patient: Conner,Rohini ?MR#: [id number] ? : 1975 ?Acct:[id number] ? Age/Sex: 49 / F ?ADM Date: 08/18/24 ? Loc: HO.ED ? Attending Dr: ? Ordering Physician: Pina Gruber ?? Date of Service: 08/18/24 ?? Procedure(s): US pelvic and transvaginal ?? Accession Number(s): [id number] ? cc: Jamila Robledo MD; Pina Gruber [...] free fluid seen in the cul-de-sac. ? US/ pelvic and transvaginal ?? IMPRESSION: ?? Multiple [...] DD/ 1323 ? TD/TT: 08/18/24 1346 ? Registered Medical Transcriptionist: MSM ? Procedure Note Milton Vanegas - 08/18/2024 [place] [address] Ultrasound Report Signed Patient: Elham Conner#: [id number] : 1975Acct:[id number] Age/Sex: 49 / FADM Date: 08/18/24 Loc: .ED Attending Dr: Ordering Physician: Pina Gruber Date of Service: 08/18/24 Procedure(s): US pelvic and transvaginal Accession Number(s): [id number] cc: Jamila Robledo MD; Pina Gruber EXAMINATION: [...] 08/18/24 1502 DD/ 1323 TD/TT: 08/18/24 1346 Registered Medical Transcriptionist: [facility] External Provider IM US PROCEDURES Final Result * SARS-CoV-2 RNA, Influenza A/B, and RSV RNA, Ql NAAT (08/18/2024 1:07 PM EST) Influenza A PCR NEGATIVE Negative [facility] Influenza B PCR NEGATIVE Negative [facility] Resp Syncy Virus RNA Qual PCR NEGATIVE Negative [facility] SARS COV2 PCR NEGATIVE Negative [...] use by authorized laboratories.Testing performed on the [employer] GeneXpert utilizingreal-time RT-PCR.All SARS CoV2 and positive influenza A/B results arereported to [facility]. 08/18/2024 1:07 PM EST 08/18/2024 1:14 PM EST us Generic External Data Provider LAB MICROBIOLOGY - GENERAL ORDERABLES Final Result [facility] [address] [place] [address] [phone] * (ABNORMAL) CBC auto differential (08/18/2024 1:07 PM EST) Only the most recent of2 resultswithin the time period is included. White Blood Count 6.3 4.8 - 10.8 X10*3/uL [facility] Red Blood Count 4.81 4.20 - 5.50 X10*6/uL [facility] Hemoglobin 13.9 12.0 - 16.0 g/dl [facility] Hematocrit 40.2 37.0 - 47.0 % [facility] Mean Corpuscular Volume 83.6 80.0 - 98.0 fL [facility] Mean Corpuscular Hemoglobin 28.9 27.0 - 33.0 pg [facility] Mean Corpuscular HGB Conc 34.6 31.0 - 35.0 g/dl [facility] Red Cell Distribution Width 13.4 11.0 - 16.0 % [facility] Platelet Count 233 160 - 400 X10*3/uL [facility] Mean Platelet Volume 9.9 9.4 - 12.3 fL [facility] Neutrophils Percent Auto 48.1 45 - 73 % [facility] Imm Gran Pct Auto 0.3 0.0 - 0.4 % [facility] Lymphocytes Percent Auto 34.1 20 - 40 % [facility] Monocytes Percent Auto 7.6 2 - 11 % [facility] Eosinophils Percent Auto 8.8(H) 0 - 4 % [facility] Basophils Percent Auto 1.1 0 - 2 % [facility] NRBC Pct Auto 0.0 0.0 - 0.2 /100WBC [facility] Neutrophils Absolute Auto 3.0 2.0 - 8.3 x10*3/uL [facility] Imm Gran Abs Auto 0.02 0.00 - 0.03 X10*3/uL [facility] Lymphocytes Absolute Auto 2.2 1.2 - 4.9 X10*3/uL [facility] Monocytes Absolute Auto 0.5 0.1 - 1.2 X10*3/uL [facility] Eosinophils Absolute Auto 0.6(H) 0.0 - 0.4 X10*3/uL [facility] Basophils Absolute Auto 0.1 0.0 - 0.2 X10*3/uL [facility] NRBC Abs Auto 0.000 0.0 - 0.012 X10*3/uL [facility] 08/18/2024 1:07 PM EST 08/18/2024 1:14 PM EST us Generic External Data Provider LAB BLOOD ORDERAB LES Final Result Performing Organization Address [facility] Co de Phone Number [facility] [address] [place] [address] [phone] * Magnesium (08/18/2024 1:07 PM EST) Magnesium 1.9 1.6 - 2.6 mg/dL [facility] 08/18/2024 1:07 PM EST 08/18/2024 1:14 PM EST Generic External Data Provider LAB BLOOD ORDERAB LES Final Result Performing Organization Address [facility] Co de Phone Number [facility] [address] [place] [address] [phone] * (ABNORMAL) Comprehensive Metabolic Panel (08/18/2024 1:07 PM EST) Sodium 140 135 - 145 mmol/L [facility] Potassium 3.1(L) 3.3 - 5.1 mmol/L [facility] Chloride 100 96 - 108 mmol/L [facility] Carbon Dioxide 30(H) 22 - 29 mmol/L [facility] Anion Gap 13 12 - 20 [facility] Urea Nitrogen (BUN) 14 9 - 16 mg/dL [facility] Creatinine, Serum 0.62 0.5 - 1.4 mg/dL [facility] Creatinine Clr Calc Pharmacy 106.3 [facility] Comment:Provided height and weight: 154.94 cm,81.647 kg.eGFR (calculated from the MDRD study equation) and eCrCl(calculated from the Cockcroft-Gault equation) are based ondifferent parameters and may not yield comparable results.If eCrCl result is absurd, please check patient'sheight/weight. Estimated Glomerular Filt Rate >60 [facility] Comment:Chronic Kidney Disea se: Estimated GFR < 60 mL/min/1.43m4Uyzmie Kidney Disease: Estimated GFR < 15 mL/min/1.73m2 Glucose 103 60 - 115 mg/dL [facility] Calcium 9.3 8.4 - 10.2 mg/dL [facility] Bilirubin, Total 0.2 0.0 - 1.0 mg/dL [facility] Aspartate Amino Transferase 26 5 - 31 U/L [facility] Alanine Aminotransferase 37(H) 0 - 31 U/L [facility] Total Protein 7.5 6.5 - 8.0 g/dL [facility] Albumin Level 4.0 3.5 - 5.0 g/dL [facility] Alkaline Phosphatase 87 39 - 117 U/L [facility] 08/18/2024 1:07 PM EST 08/18/2024 1:14 PM EST us Generic External Data Provider LAB BLOOD ORDERAB LES Final Result Performing Organization Address [facility] Co de Phone Number [facility] [address] [place] [phone] * (ABNORMAL) Bacterial Vaginosis (08/18/2024 12:00 AM EST) TRICHOMONAS VAGINALIS DETECTION BY PCR NOT DETECTED Not Detect [facility] BACTERIAL VAGINOSIS DETECTION BY PCR POSITIVE(A) Negative [facility] Comment:The BV organism targ ets [...] DETECTION BY PCR NOT DETECTED Not Detect [facility] Temi glab krusei PCR NOT DETECTED Not Detect [facility] 08/18/2024 08/18/2024 4:4 6 PM EST us Leslie Peres NP LAB MICROBIOLOGY - GENERAL ORDE RABLES Final Result Performing Organization Address [facility] Co de Phone Number [facility] [address] [place] [phone] * TSH with Reflex to Free T4 (08/13/2024 10:02 AM EST) TSH reflex Free T4 0.63 0.32 - 4.0 uIU/mL [facility] Blood 08/13/2024 10:0 2 AM EST 08/13/2024 11:08 AM EST Aide Bishop MD LAB BLOOD ORDERABLES Final Result Performing Organization Address [facility] [facility]/ZIP Co de Phone Number [facility] [address] [place] [address] [phone] * Iron And Total Iron Binding Capacity (08/13/2024 10:02 AM EST) Pathologist [facility] [place] Iron 99 30 - 160 mcg/dL [facility] Total Iron Binding Capacity 314 228 - 428 mcg/dL [facility] Percent Iron Saturation 32 15 - 50 % [facility] Unsaturated Iron Binding 215 ug/dL [facility] Blood Venous blood specimen / Unknown 08/13/2024 10:02 AM EST 08/13/2024 11:08 AM EST Aide Bishop MD LAB BLOOD ORDERABLES Final Result Performing Organization Address [facility] Co de Phone Number [facility] [address] [place] [address] [phone] * Ferritin (08/13/2024 10:02 AM EST) Pathologist [facility] [place] Ferritin 155 10 - 250 ng/mL [facility] Blood Venous blood specimen / Unknown 08/13/2024 10:02 AM EST 08/13/2024 11:08 AM EST Aide Bishop MD LAB BLOOD ORDERABLES Final Result Performing Organization Address [facility] de Phone Number [facility] [address] [place] [address] [phone] * (ABNORMAL) Basic Metabolic Panel (08/13/2024 10:02 AM EST) Pathologist [facility] [place] Sodium 141 135 - 145 mmol/L [facility] Potassium 3.2(L) 3.3 - 5.1 mmol/L [facility] Chloride 104 96 - 108 mmol/L [facility] Carbon Dioxide 29 22 - 29 mmol/L [facility] Anion Gap 11(L) 12 - 20 [facility] Urea Nitrogen (BUN) 14 9 - 16 mg/dL [facility] Creatinine, Serum 0.53 0.5 - 1.4 mg/dL [facility] Estimated Glomerular Filt Rate >60 [facility] Comment:Chronic Kidney Disea se: Estimated GFR < 60 mL/min/1.01t0Pixqda Kidney Disease: Estimated GFR < 15 mL/min/1.73m2 Glucose 114 60 - 115 mg/dL [facility] Calcium 8.8 8.4 - 10.2 mg/dL [facility] Blood Venous blood specimen / Unknown 08/13/2024 10:02 AM EST 08/13/2024 11:08 AM EST Aide Bishop MD LAB BLOOD ORDERABLES Final Result Performing Organization Address City/[facility] Co de Phone Number [facility] [address] [place] [phone] * Hepatitis C Ab (04/03/2024 11:38 AM EDT) Hepatitis C Antibody Nonreactive Nonreactive [facility] Comment:Antibodies to HCV no t detected; does not exclude early acuteHCV infection. 04/03/2024 11:3 8 AM EDT 04/03/2024 11:48 AM EDT [employer] External Data Provider LAB BLOOD ORDERAB LES Final Result Performing Organization Address City/[facility] Co de Phone Number [facility] [address] [place] [phone] * (ABNORMAL) POCT HGB A1C (03/11/2024 5:49 PM EDT) Hemoglobin A1C 6.3(A) 4.0 - 6.0 % QC Media Lot # [id number] Lot# Expiration Date [id number] Blood 03/11/2024 5:49 PM EDT Wicho Desai MD POINT OF CARE TEST ENTER/EDIT OR DERABLES Final Result * (ABNORMAL) Lipid Panel, Standard (01/08/2024 12:04 PM EDT) Triglycerides 143 <150 mg/dL [facility] Comment:Desirable Triglyceri de: less than 150 mg/dLBorderline High Triglyceride 150-199 mg/dLHigh Triglyceride: 200-499 mg/dLVery High Triglyceride: greater than or equal to 5OO mg/dL Cholesterol 187 <200 mg/dL [facility] Comment:Desirable Cholestero l: less than 200 mg/dLBorderline High Cholesterol: 200-239 mg/dLHigh Cholesterol: greater than 239 mg/dL LDL Cholesterol Calculated 119(H) <100 mg/dL [facility] Comment:Desirable LDL: less than 100 mg/dLNear Optimal/Above Optimal LDL: 110- 129 mg/dLBorderline High LDL: 130-159 mg/dLHigh LDL: 160-189 mg/dLVery High LDL: greater than or equal to 190 mg/dL HDL Cholesterol 40(L) >40 mg/dL [facility] Comment:Desirable HDL: great er than 40 mg/dL Note: This HDL assay may give artificially low results in patients with liver disease. Blood Venous blood specimen / Unknown 01/08/2024 12:04 PM EDT 01/08/2024 1:04 PM EDT us Jamila Beebe MD LAB BLOOD ORDERABLES Final Result [facility] [address], [place] [phone] * Hm Colonoscopy (09/01/2022 9:48 AM EDT) Colonoscopy Normal Normal Narrative Beatrice Arora - 09/01/2022 9:48 AM EDT Repeat in 3 years see the external hospital admission note on 09/01/2022 Historical Provider HEALTH MAINTENANCE Edited Result - Final * Mammography Report 1 (05/01/2022 11:34 AM EST) Anatomical Region Laterality Modality Breast Bilateral Mammography 05/01/2022 11:3 4 AM EST Narrative 05/01/2022 12:16 PM EST Refer to the Notes tab for result details [facility] Procedure: Mammography Report 1 Procedure Note Provider, MD Armen - 09/10/2022 Refer to the Notes tab for result details [facility] Procedure: Mammography Report 1 Kimberley Tavares INSIDE PHONE SALES IMG BI PROCEDURES Final Result from Last 3 Months or Most Recently Relevant to Health Maintenance Insurance [place], [place] [facility] Care Teams Ripsaw Matcher Relationship Specialty Start Date End Date Jamila Robledo MD [address] [place] [address] PCP - General Family Medicine 05/02/19
--- OUTSIDE RECORDS SUMMARY | 2024-09-23 12:08 | XMS_ITS | Encounter Summary ---
Author Organization [employer] Address [address] [place] [address] Care Team Providers Care Spool Hauler Name Role Phone Jamila Robledo MD Primary Care Provide r Reason for Visit * Reason Comments Med Refill Encounter Details Date Type Department Care Team ([facility] Contact Info) Description 08/18/2024 Refill [facility] MED & PEDS [address] [place] [address] Jamila Robledo MD [address] [place] [address] Acute non-recurrent frontal sinusitis Social History Tobacco [...] Description 10/10/2024 1:30 PM EDT Office Visit [facility] MEDICINE [address] [place], [place] [phone] Traci Singh MD [address] [place] [address] documented as of this encounter Visit Diagnoses Diagnosis Acute non-recurrent frontal sinusitis documented in this encounter Additional Health Concerns Assessment Noted Time PHQ-9 Depression Total Score: 0 02/06/20 24 2:56 PM EDT documented as of this encounter Care Teams Spool Hauler Relationship Specialty Start Date End Date Jamila Robledo MD [address] [place], [place] [phone] PCP - General Family Medicine 05/02/19 documented as of this encounter
--- OUTSIDE RECORDS SUMMARY | 2024-09-23 12:08 | XMS_ITS | Encounter Summary ---
Author Organization [employer] Address [address] [place] [address] Care Team Providers Care Slate Worker Name Role Phone Jamila Robledo MD Primary Care Provide r Reason for Visit * Reason Comments Med Change Request Encounter Details Date Type Department Care Team ([facility] Contact Info) Description 06/28/2023 Refill [facility] [address] [place], [place] [phone] Ruth Costello FNP [address] [place] [phone] Upper back pain on left side Social [...] Description 10/10/2024 1:30 PM EDT Office Visit [facility] [address] [place] [address] Traci Singh MD [address] [place] [address] documented as of this encounter Visit Diagnoses Diagnosis Upper back pain on left side documented in this encounter Additional Health Concerns Assessment Noted Time PHQ-9 Depression Total Score: 9 11/04/19 23 2:36 PM EDT documented as of this encounter Care Teams Slate Worker Relationship Specialty Start Date End Date Jamila Robledo MD [address] [place] [address] PCP - General Family Medicine 05/02/19 documented as of this encounter
--- OUTSIDE RECORDS SUMMARY | 2024-09-23 12:08 | XMS_ITS | Encounter Summary ---
Author Organization [employer] Address [address] [facility] [address] [place] [address] Care Team Providers Care Inside Sales Agent Name Role Phone Jamila Robledo MD Primary Care Provide r Reason for Visit * Reason Comments Med Refill Encounter Details Date Type Department Care Team ([facility] Contact Info) Description 08/08/2023 Refill [facility] MEDICINE [address] [place], [place] [phone] Jamila Robledo MD [address] [place] [address] Psychophysiological insomnia Social History Tobacco Use Types [...] Description 10/10/2024 1:30 PM EDT Office Visit [facility] MEDICINE [address] [place], [place] [phone] Traci Singh MD [address] [place], [place] [phone] documented as of this encounter Visit Diagnoses Diagnosis Psychophysiological insomnia Persistent disorder of initiating or maintaining sleep documented in this encounter Additional Health Concerns Assessment Noted Time PHQ-9 Depression Total Score: 9 11/04/19 23 2:36 PM EDT documented as of this encounter Care Teams Inside Sales Agent Relationship Specialty Start Date End Date Jamila Robledo MD [address] [place], [place] [phone] PCP - General Family Medicine 05/02/19 documented as of this encounter
--- OUTSIDE RECORDS SUMMARY | 2024-09-23 12:08 | XMS_ITS | Encounter Summary ---
Author Organization [employer] Address [address] [facility] 7t [place] [address] Care Team Providers Care Sports Broadcasting Internship Name Role Phone Jamila Robledo MD Primary Care Provide r Encounter Details Date Type Department Care Team ([facility] Contact Info) Description 03/18/2024 Orders Only [facility] MEDICINE [address] [place], [place] [phone] Jamila Robledo MD [address] [place], [place] [phone] Social History Tobacco Use Types Packs/Day Years [...] Description 10/10/2024 1:30 PM EDT Office Visit [facility] MED[facility] [address] [place] [address] Traci Singh MD [address] [place] [address] documented as of this encounter Visit Diagnoses Not on filedocumented in this encounter Additional Health Concerns Assessment Noted Time PHQ-9 Depression Total Score: 0 02/06/20 24 2:56 PM EDT documented as of this encounter Care Teams Sports Broadcasting Internship Relationship Specialty Start Date End Date Jamila Robledo MD [address] [place], [place] [phone] PCP - General Family Medicine 05/02/19 documented as of this encounter
--- OUTSIDE RECORDS SUMMARY | 2024-09-23 12:08 | XMS_ITS | Encounter Summary ---
Author Organization [employer] Address [address] [facility] [address]t [place] [address] Care Team Providers Care Sports Reporter Name Role Phone Jamila Robledo MD Primary Care Provide r Reason for Visit * Reason Comments Med Change Request Encounter Details Date Type Department Care Team ([facility] Contact Info) Description 07/17/2023 Refill [facility] [address] [place], [place] [phone] Ruth Costello FNP [address] [place] [phone] Social History Tobacco Use Types Packs/Day Years [...] Description 10/10/2024 1:30 PM EDT Office Visit [facility] [address] [place] [address] Traci Singh MD [address] [place] [address] documented as of this encounter Visit Diagnoses Not on filedocumented in this encounter Additional Health Concerns Assessment Noted Time PHQ-9 Depression Total Score: 9 11/04/19 23 2:36 PM EDT documented as of this encounter Care Teams Sports Reporter Relationship Specialty Start Date End Date Jamila Robledo MD [address] [place] [address] PCP - General Family Medicine 05/02/19 documented as of this encounter
--- OUTSIDE RECORDS SUMMARY | 2024-09-23 12:08 | XMS_ITS | Encounter Summary ---
Author Organization [employer] Address [address] [place] [address] 7t [place] [address] Care Team Providers Care Garment Cutter Name Role Phone Jamila Robledo MD Primary Care Provide r Reason for Visit * Reason Comments Med Refill Encounter Details Date Type Department Care Team ([facility] Contact Info) Description 11/28/2022 Refill [facility] MEDICINE [address] [place] [address] Jamila Robledo MD [address] [place] [address] Acute non-recurrent frontal sinusitis Social History Tobacco [...] Upcoming Encounters Date Type Department Care Team ([facility] Contact Info) Description 10/10/2024 1:30 PM EDT Office Visit [facility] MED[facility] [address] [place] [address] Traci Singh MD [address] [place] [address] documented as of this encounter Visit Diagnoses Diagnosis Acute non-recurrent frontal sinusitis documented in this encounter Additional Health Concerns Assessment Noted Time PHQ-9 Depression Total Score: 9 11/04/19 23 2:36 PM EDT documented as of this encounter Care Teams Garment Cutter Relationship Specialty Start Date End Date Jamila Robledo MD [address] [place] [address] PCP - General Family Medicine 05/02/19 documented as of this encounter
--- OUTSIDE RECORDS SUMMARY | 2024-09-23 12:09 | XMS_ITS | Data Portability ---
Author Organization [employer] Address [address] [place] [phone] Care Team Providers Care Room Service Manager Name Role Phone [facility] Referring Provider [facility] Referring Provider Assessment Encounter Date Assessment Date Assessment LastModified by Organization Details LastModified Time 11/14/2022 11/14/2022 As noted, we were called to see this patient regarding concerns of sinus congestion. Evaluation in the field was performed by my housecalls nurse colleague, as noted above, I provided real-time [...] despite meds, vision changes, altered mental status. Not available 11/14/2022 15:14:51 Plan of Treatment Reminders Order Date Submit Date Provider Last Modified By Organization Details Last Modified Time Details Appointments None recorded. Lab None recorded. Referral None recorded. Procedures None recorded. Surgeries None recorded. Imaging None recorded. Medication Orders Paxlovid 300 mg (150 mg x 2)-100 mg tablets in a dose pack 2022 023 [facility] am98 [facility][id number], [address] [facility] [place], [address], 3 13:07:58 Patient TargetsNo targets recorded. Patient [...] 3 97 % 97 % 18 /min 49675.6 8 g 98.4 [degF] 83 /min 157.48 cm 134 mm[Hg] 82 mm[Hg] Not Available [employer] 3 13:02:00 Date Recorded Body temperature Body weight Oxygen saturation Oxygen saturation in Arterial blood by Pulse oximetry Respiratory rate Heart rate Systolic blood pressure Diastolic blood pressure Provider Name and Address Organization Details Last Updated DateTime 3 97.1 [degF] 10342.2 4 g 97 % 97 % 16 /min 76 /min 163 mm[Hg] 96 mm[Hg] Not Available [employer] 3 14:04:45 Date Recorded Body weight Body height Body temperature Oxygen saturation Oxygen saturation in Arterial blood by Pulse oximetry Heart rate Respiratory rate Systolic blood pressure Diastolic blood pressure Provider Name and Address Organization Details Last Updated DateTime 3 57049.6 4 g 157.48 cm 97.8 [degF] 95 % 95 % 61 /min 18 /min 124 mm[Hg] 80 mm[Hg] Not Available [employer] 3 11:16:46 Social History None recorded. Functional Status None recorded. Mental Status None recorded. Family History Nothing Reported. Medical History No medical history recorded. Gynecological HistoryNo gynecological history recorded. Obstetrics History GPAL:G 0 P 0 0 0 0 Past Encounters Encounter ID Performer Location Encounter Start Date Encounter Closed Date Diagnosis/Indication Diagnosis SNOMED-CT Code Diagnosis ICD10 Code Diagnosis Note [id number] Sneha Cintron MD [facility] [address] [place] [phone] 11/09/2022 14:04:34 11/10/2022 14:20:47 Acute bacterial sinusitis 83806018 J01.90 47 year old female, being evaluated [...] y changing to an alternativ e regimen. [id number] NEELAM ALVARADO MD [facility] [address] [place] [phone] 11/14/2022 11:16:43 11/15/2022 09:34:22 Congestion of nasal sinus 30435387 R09.81 [id number] Bam Luo MD [facility] [address] [place] [phone] 05/06/2023 13:01:58 05/06/2023 16:22:04 COVID-19 [id number] U07.1 47yo woman presents with URI symptoms [...] levels expected to be safe. Acute COVID-19 [id number] 8 U07.1 We discussed the benefit of Paxlovid to reduce the risk of hospitaliz ation and , and the potential downsides/ side effects, including dysgeusia, headache, COVID rebound, and the possibilit y of medication interactio ns despite my efforts to review medication s and personal counselor on discontinu ation. We discussed alternativ [...] Navarro Member ID Guarantor Name 11/09/2022 1 [facility] - DOS ON OR AFTER 2022 - DUAL ELIGIBLE - DETENTION OPTIONS AND ONE CARE (MEDICARE REPLACEMENT/ADV ANTAGE - HMO) Rohini Conner [id number] Rohini Conner 11/14/2022 1 [facility] - DOS ON OR AFTER 2022 - DUAL ELIGIBLE - DETENTION OPTIONS AND ONE CARE (MEDICARE REPLACEMENT/ADV ANTAGE - HMO) Rohini Conner [id number] Rohini Conner 05/06/2023 1 [facility] - DOS ON OR AFTER 2022 - DUAL ELIGIBLE - DETENTION OPTIONS AND ONE CARE (MEDICARE REPLACEMENT/ADV ANTAGE - HMO) Rohini Conner [id number] Rohini Conner Notes Date Note Type Note [...] process this visit. Sneha Cintron MD [address] [facility],[address], [place], [phone], [employer] 11/09/2022 14:09:36 11/14/2022 text/html CRC Nursing Assessment: Reason For Request: Follow up visit>Sinus infection, which has not gotten better. Chief Complaints: URI PMH: COPD/Asthma, Hypertension, Heart Disease Allergies: No Known Comments: [facility] was on [facility] amoxicillin and completed the course. Member continues to be congested, mild cough from being dry. Member has chills no fever but has pain and sinus pressure . Member has sob when sleeping and has to sleep upright Verified identity by .................. .................. .................. .................. .................. .................. .................. ............... Pbx Technician Note From Racheal Singleton: Sent to a call for a pt requesting follow up due to sinus infection. SC8 arrives on scene, pt is alert and oriented, airway is patent. [facility] am[facility] x 7 days for [...] expresses Zertec D seems to be ineffective. [facility] suggests changing to Shi and offers to send script for Shi and Saline nasal spray. Pt declines stating she's tried Shi and has Saline nasal spray. Pt advised to follow up with PCP for further evaluation. [facility] sends follow up request to pt's care team. Red flags discussed. Pt has no further questions. .................. .................. .................. .................. .................. .................. .................. ............... Disposition: Fulfilled NEELAM ALVARADO MD [address] [place] [address],[address], [place], [phone], [employer] 11/14/2022 15:15:16 05/06/2023 text/html HPI: I tested [...] .................. .................. .................. .................. .................. .................. ............... Pbx Technician Note From Yosi Araujo: [facility] visit for [...] for symptoms with some improvement. Consulted with [facility] Dr. Luo who prescribed paxlovid for patients symptoms. Prescription sent to patients pharmacy. Patient education provided and encouraged to continue with home remedies as well. .................. .................. .................. .................. .................. .................. .................. ............... Disposition: Fulfilled Bam Luo MD [address] [facility],[address], [place], [phone], [employer] 05/06/2023 13:08:00 OBGyn Episode No OBEpisode recorded.
--- OUTSIDE RECORDS SUMMARY | 2024-09-23 12:09 | XMS_ITS | Encounter Summary ---
Author Organization [employer] Address [address] 7t [place] [address] Care Team Providers Care Record Librarian Name Role Phone Jamila Robledo MD Primary Care Provide r Reason for Visit * Reason Onset Date Comments Med Change Request 03/11/2024 Encounter Details Date Type Department Care Team ([facility] Contact Info) Description 03/11/2024 Telephone [facility] MEDIC[facility] [address] [place] [address] Jamila Robledo MD [address] [place] [address] Med Change Request Social History Tobacco Use [...] t he electric, gas, oil or water [employer] threatened to shut off services in your [...] Description 10/10/2024 1:30 PM EDT Office Visit [facility] [address] [place] [address] Traci Singh MD [address] [place] [address] documented as of this encounter Visit Diagnoses Not on filedocumented in this encounter Additional Health Concerns Assessment Noted Time PHQ-9 Depression Total Score: 0 02/06/20 24 2:56 PM EDT documented as of this encounter Care Teams Record Librarian Relationship Specialty Start Date End Date Jamila Robledo MD [address] [place] [address] PCP - General Family Medicine 05/02/19 documented as of this encounter
--- OUTSIDE RECORDS SUMMARY | 2024-09-23 12:09 | XMS_ITS | Encounter Summary ---
Author Organization [employer] Address [address] [facility] [address] [place] [address] Care Team Providers Care Medical Record Specialist Name Role Phone Jamila Robledo MD Primary Care Provide r Reason for Visit * Reason Onset Date Comments Nurse Triage 02/27/2024 Encounter Details Date Type Department Care Team ([facility] Contact Info) Description 02/27/2024 Telephone [facility] MED[facility]INE [address] [place], [place] [phone] Jamila Robledo MD [address] [place] [address] Nurse Triage Social History Tobacco Use Types [...] the past 12 months, has t he [employer], gas, oil or water [facility] threatened to shut off services in your [...] to check this. Advised to come to [facility] open till 8pm today and th, fri, 830a-4p. Pt agrees with this disposition and will come to [facility] probably in the morning. Insurance is verified [...] Description 10/10/2024 1:30 PM EDT Office Visit [facility] [address] [place], [place] [phone] Traci Singh MD [address] [place] [address] documented as of this encounter Visit Diagnoses Not on filedocumented in this encounter Additional Health Concerns Assessment Noted Time PHQ-9 Depression Total Score: 0 02/06/20 24 2:56 PM EDT documented as of this encounter Care Teams Medical Record Specialist Relationship Specialty Start Date End Date Jamila Robledo MD [address] [place] [address] [phone] PCP - General Family Medicine 05/02/19 documented as of this encounter
--- OUTSIDE RECORDS SUMMARY | 2024-09-23 12:09 | XMS_ITS | Encounter Summary ---
Author Organization [employer] Address [address] [facility] [address] [place] [address] Care Team Providers Care Substation Wireman Name Role Phone Jamila Robledo MD Primary Care Provide r Encounter Details Date Type Department Care Team ([facility] Contact Info) Description 09/16/2024 Orders Only [facility]S [address] [place] [address] Provider, MD Armen Social History Tobacco Use Types Packs/Day Years [...] Description 10/10/2024 1:30 PM EDT Office Visit [facility] MEDICINE [address] [place] [address] Traci Singh MD [address] [place] [address] documented as of this encounter Procedures Procedure Name Priority Date/Time Associated Diagnosis Comments COLONOSCOPY Routine 09/01/2022 9:48 AM EDT documented in this encounter Results * Colonoscopy (09/01/2022 9:48 AM EDT) Colonoscopy Normal Normal Narrative Beatrice Arora - 09/01/2022 9:48 AM EDT Repeat in 3 years see the external hospital admission note on 09/01/2022 us Historical Provider HEALTH MAINTENANCE Edited Result - Final documented in this encounter Visit Diagnoses Not on filedocumented in this encounter Additional Health Concerns Assessment Noted Time PHQ-9 Depression Total Score: 0 02/06/20 24 2:56 PM EDT documented as of this encounter Care Teams Substation Wireman Relationship Specialty Start Date End Date Jamila Robledo MD [address] [place] [address] PCP - General Family Medicine 05/02/19 documented as of this encounter
== END 2024-09-23 10:57 | disposition home or self-care (01) ==
LOC: HO.HWS 10:16
PROVIDERS: PCP Internal Medicine; Visit Provider Obstetrics & Gynecology
DX: N93.9 Abnormal uterine and vaginal bleeding, unspecified (principal)
CPT/HCPCS: 99213

== ENCOUNTER → 2024-09-23 10:16 | Outpatient (BNVA) | payer OTHER, SELFPAY | PROVIDERS: PCP Internal Medicine; Visit Provider Obstetrics & Gynecology | DX: N93.9 Abnormal uterine and vaginal bleeding, unspecified (principal) | CPT/HCPCS: 99212 ==

== ENCOUNTER 2024-10-08 11:13 | Outpatient (REF) | payer OTHER, SELFPAY ==
[2024-10-08 12:39] LABS: Magnesium 1.9 mg/dL (1.6-2.6)
--- OUTSIDE RECORDS SUMMARY | 2024-10-08 14:10 | XMS_ITS | Encounter Summary ---
Author Organization [employer] Address [address] [facility] 7t [place] [address] Care Team Providers Care Drafter Engineering Name Role Phone Jamila Robledo MD Primary Care Provide r Reason for Visit * Reason Comments Med Change Request Encounter Details Date Type Department Care Team ([facility] Contact Info) Description 07/17/2023 Refill [facility] 230 [place], [place] [phone] Ruth Costello FNP 230 [place] [address] Social History Tobacco Use Types Packs/Day Years [...] 10/10/2024 1:30 PM EDT Office Visit [facility] MEDICINE 230 [place] [address] Traci Singh MD [address] [place] [address] documented as of this encounter Visit Diagnoses Not on filedocumented in this encounter Additional Health Concerns Assessment Noted Time PHQ-9 Depression Total Score: 9 11/04/19 23 2:36 PM EDT documented as of this encounter Care Teams Drafter Engineering Relationship Specialty Start Date End Date Jamila Robledo MD 230 [place] [address] PCP - General Family Medicine 05/02/19 documented as of this encounter
--- OUTSIDE RECORDS SUMMARY | 2024-10-08 14:10 | XMS_ITS | Encounter Summary ---
Author Organization [employer] Address [address] [facility] [address] 7t [place] [address] Care Team Providers Care Dandy Tender Name Role Phone Jamila Robledo MD Primary Care Provide r Reason for Visit * Reason Comments Med Change Request Encounter Details Date Type Department Care Team ([facility] Contact Info) Description 10/04/2024 Refill [facility] MED [facility]EDS [address] [place] [address] Jamila Robledo MD 230 [place] [address] Social History Tobacco Use Types Packs/Day Years [...] Description 10/10/2024 1:30 PM EDT Office Visit [facility] MEDICINE 230 [place], [place] [phone] Traci Singh MD 230 [place] [address] documented as of this encounter Visit Diagnoses Not on filedocumented in this encounter Additional Health Concerns Assessment Noted Time PHQ-9 Depression Total Score: 0 02/06/20 24 2:56 PM EDT documented as of this encounter Care Teams Dandy Tender Relationship Specialty Start Date End Date Jamila Robledo MD [address] [place] [address] [phone] PCP - General Family Medicine 05/02/19 documented as of this encounter
--- OUTSIDE RECORDS SUMMARY | 2024-10-08 14:10 | XMS_ITS | Encounter Summary ---
Author Organization [employer] Address [address] [facility] [address] 7t [place] [address] Care Team Providers Care Director [employer] Name Role Phone Jamila Robledo MD Primary Care Provide r Reason for Visit * Reason Comments Med Change Request Encounter Details Date Type Department Care Team ([facility] Contact Info) Description 06/28/2023 Refill [facility] 230 [place], [place] [phone] Ruth Costello FNP [address] [place] [address] Upper back pain on left side Social [...] Office Visit [facility] [address] [place] [address] Traci Singh MD [address] [place] [address] documented as of this encounter Visit Diagnoses Diagnosis Upper back pain on left side documented in this encounter Additional Health Concerns Assessment Noted Time PHQ-9 Depression Total Score: 9 11/04/19 23 2:36 PM EDT documented as of this encounter Care Teams Director [employer] Relationship Specialty Start Date End Date Jamila Robledo MD [address] [place] [address] PCP - General Family Medicine 05/02/19 documented as of this encounter
--- OUTSIDE RECORDS SUMMARY | 2024-10-08 14:10 | XMS_ITS | Encounter Summary ---
Author Organization [employer] Address [address] [facility] 7t [place] [address] Care Team Providers Care Dam Worker Name Role Phone Jamila Robledo MD Primary Care Provide r Encounter Details Date Type Department Care Team ([facility] Contact Info) Description 10/08/2024 Orders Only GENERIC [...] Description 10/10/2024 1:30 PM EDT Office Visit [facility] MEDICINE 230 [place] [address] Traci Singh MD 230 [place] [address] documented as of this encounter Procedures Procedure Name Priority Date/Time Associated Diagnosis Comments MAGNESIUM Routine 10/08/2024 11:58 AM EDT documented in this encounter Results * Magnesium (10/08/2024 11:58 AM EDT) Magnesium 1.9 1.6 - 2.6 mg/dL [facility] 10/08/2024 11:5 8 AM EDT 10/08/2024 11:58 AM EDT us Generic External Data Provider LAB BLOOD ORDERAB LES Final Result [facility] [address] [place] [address] [phone] documented in this encounter Visit Diagnoses Not on filedocumented in this encounter Additional Health Concerns Assessment Noted Time PHQ-9 Depression Total Score: 0 02/06/20 24 2:56 PM EDT documented as of this encounter Care Teams Dam Worker Relationship Specialty Start Date End Date Jamila Robledo MD [address] [place] [id number] PCP - General Family Medicine 05/02/19 documented as of this encounter
--- OUTSIDE RECORDS SUMMARY | 2024-10-08 14:10 | XMS_ITS | Encounter Summary ---
Author Organization [email or web address] Address 75 [facility] 7t [place] [address] Care Team Providers Care Nurse Outreach Case Manager Name Role Phone Jamila Robledo MD Primary Care Provide r Reason for Visit * Reason Onset Date Comments Durable Medical Equipment 10/07/2024 Loretta Form: Incontinence Pad Encounter Details Date Type Department Care Team ([facility] Contact Info) Description 10/07/2024 Telephone [facility] MEDICINE [address] [place] [address] Jamila Robledo MD [address] [place] [address] Durable Medical Equipment (Loretta Form: Incontinence Pad) [...] EDT Office Visit [facility] MEDICINE [address] [place] [address] Traci Singh MD [address] [place] [address] documented as of this encounter Visit Diagnoses Not on filedocumented in this encounter Additional Health Concerns Assessment Noted Time PHQ-9 Depression Total Score: 0 02/06/20 24 2:56 PM EDT documented as of this encounter Care Teams Nurse Outreach Case Manager Relationship Specialty Start Date End Date Jamila Robledo MD [address] [place] [address] PCP - General Family Medicine 05/02/19 documented as of this encounter
--- OUTSIDE RECORDS SUMMARY | 2024-10-08 14:10 | XMS_ITS | Encounter Summary ---
Author Organization [employer] Address [address] [facility] 7t [place] [address] Care Team Providers Care Mechanical Adjuster Name Role Phone Jamila Robledo MD Primary Care Provide r Encounter Details Date Type Department Care Team ([facility] Contact Info) Description 03/18/2024 Orders Only [facility] MEDICINE 230 [place], [place] [phone] Jamila Robledo MD [address] [place], [place] [phone] Social History Tobacco Use Types Packs/Day Years [...] Description 10/10/2024 1:30 PM EDT Office Visit [facility] MEDICINE [address] [place] [address] Traci Singh MD [address] [place] [address] documented as of this encounter Visit Diagnoses Not on filedocumented in this encounter Additional Health Concerns Assessment Noted Time PHQ-9 Depression Total Score: 0 02/06/20 24 2:56 PM EDT documented as of this encounter Care Teams Mechanical Adjuster Relationship Specialty Start Date End Date Jamila Robledo MD [address] [place], [place] [phone] PCP - General Family Medicine 05/02/19 documented as of this encounter
--- OUTSIDE RECORDS SUMMARY | 2024-10-08 14:10 | XMS_ITS | Encounter Summary ---
Author Organization [employer] Address [address] [facility] 7t [place] [address] Care Team Providers Care Supervisor Bakery Sanitation Name Role Phone Jamila Robledo MD Primary Care Provide r Reason for Visit * Reason Comments Med Refill Encounter Details Date Type Department Care Team ([facility] st Contact Info) Description 08/08/2023 Refill [facility] MEDICINE 230 [place], [place] [phone] Jamila Robledo MD [address] [place] [address] Psychophysiological insomnia Social History Tobacco Use Types [...] Description 10/10/2024 1:30 PM EDT Office Visit [facility] MEDICINE 230 [place], [place] [phone] Traci Singh MD [address] [place], [place] [phone] documented as of this encounter Visit Diagnoses Diagnosis Psychophysiological insomnia Persistent disorder of initiating or maintaining sleep documented in this encounter Additional Health Concerns Assessment Noted Time PHQ-9 Depression Total Score: 9 11/04/19 23 2:36 PM EDT documented as of this encounter Care Teams Supervisor Bakery Sanitation Relationship Specialty Start Date End Date Jamila Robledo MD [address] [place], [place] [phone] PCP - General Family Medicine 05/02/19 documented as of this encounter
--- OUTSIDE RECORDS SUMMARY | 2024-10-08 14:10 | XMS_ITS | Encounter Summary ---
Author Organization [employer] Address [address] [facility] [address] 7t [place] [address] Care Team Providers Care Neighborhood Planner Name Role Phone Jamila Robledo MD Primary Care Provide r Reason for Visit * Reason Comments Med Refill Encounter Details Date Type Department Care Team ([facility] Contact Info) Description 08/18/2024 Refill [facility] CHC MED & PEDS [address] [place] [address] Jamila Robledo MD 230 [place] [address] Acute non-recurrent frontal sinusitis Social History Tobacco [...] EDT Office Visit [facility] MEDICINE 230 [place], [place] [phone] Traci Singh MD 230 [place] [address] documented as of this encounter Visit Diagnoses Diagnosis Acute non-recurrent frontal sinusitis documented in this encounter Additional Health Concerns Assessment Noted Time PHQ-9 Depression Total Score: 0 02/06/20 24 2:56 PM EDT documented as of this encounter Care Teams Neighborhood Planner Relationship Specialty Start Date End Date Jamila Robledo MD 230 [place], [place] [phone] PCP - General Family Medicine 05/02/19 documented as of this encounter
--- OUTSIDE RECORDS SUMMARY | 2024-10-08 14:11 | XMS_ITS | Encounter Summary ---
Author Organization [employer] Address [address] [facility] 7t [place] [address] Care Team Providers Care Electrical Integrator Name Role Phone Jamila Robledo MD Primary Care Provide r Reason for Visit * Reason Onset Date Comments Med Change Request 03/11/2024 Encounter Details Date Type Department Care Team ([facility] Contact Info) Description 03/11/2024 Telephone [facility] MEDICINE 230 [place] [address] Jamila Robledo MD [address] [place] [address] Med Change Request Social History Tobacco Use [...] t he electric, gas, oil or water [employer] threatened to shut off services in your [...] 10/10/2024 1:30 PM EDT Office Visit [facility] MEDICINE 230 [place] [address] Traci Singh MD [address] [place] [address] documented as of this encounter Visit Diagnoses Not on filedocumented in this encounter Additional Health Concerns Assessment Noted Time PHQ-9 Depression Total Score: 0 02/06/20 24 2:56 PM EDT documented as of this encounter Care Teams Electrical Integrator Relationship Specialty Start Date End Date Jamila Robledo MD [address] [place] [address] PCP - General Family Medicine 05/02/19 documented as of this encounter
--- OUTSIDE RECORDS SUMMARY | 2024-10-08 14:11 | XMS_ITS | Encounter Summary ---
Author Organization [employer] Address 75 [facility] 7t [place] [address] Care Team Providers Care Manager Domestic Name Role Phone Jamila Robledo MD Primary Care Provide r Reason for Visit * Reason Onset Date Comments Nurse Triage 02/27/2024 Encounter Details Date Type Department Care Team ([facility] Contact Info) Description 02/27/2024 Telephone [facility] MEDICINE 230 [place], [place] [phone] Jamila Robledo MD [address] [place] [address] Nurse Triage Social History Tobacco Use Types [...] the past 12 months, has t he [employer], gas, oil or water [employer] threatened to shut off services in your [...] to check this. Advised to come to [facility] open till 8pm today and th, fri, 830a-4p. Pt agrees with this disposition and will come to [facility] probably in the morning. Insurance is [...] Description 10/10/2024 1:30 PM EDT Office Visit [facility] MEDICINE 230 [place], [place] [phone] Traci Singh MD 230 [place] [address] documented as of this encounter Visit Diagnoses Not on filedocumented in this encounter Additional Health Concerns Assessment Noted Time PHQ-9 Depression Total Score: 0 02/06/20 24 2:56 PM EDT documented as of this encounter Care Teams Manager Domestic Relationship Specialty Start Date End Date Jamila Robledo MD [address] [place] [address] [phone] PCP - General Family Medicine 05/02/19 documented as of this encounter
--- OUTSIDE RECORDS SUMMARY | 2024-10-08 14:11 | XMS_ITS | Clinical Summary ---
Author Organization [employer] Address [address] [place] [address] 7t [place] [address] Care Team Providers Care Wind Energy Technician Name Role Phone Jamila Robledo MD [...] 2024 Active Blood Glucose Monitoring Suppl (FreeStyle Bryson Lite) w/Device kitIndications: Prediabetes Use to test [...] bleeding x2 days. Not currently established with NURSING CLERK. Abdominal exam benign. -ordered CBC, TSH, iron panel, and BMP. -ordered transvaginal US -referred to NURSING CLERK -prescribed medroxyPROGESTERone 5 mg, TID x5days [...] DEPARTMENT Provider, Generic External Data 10/07/[address] [address] Jamila Robledo MD Durable Medical Equipment (Moe and Tru Form: Incontinence Pad) 10/04/2024 Refill [facility] [address] [place] [address] Jamila Robledo MD 09/24/2024 Telephone [facility] [address] [place] [address] Jamila Robledo MD 09/17/[address] [address] Jamila Robledo MD [facility] 09/16/2024 Orders Only [facility] [address] [place], [place] [phone] Armen Vaughan MD 09/15/2024 11:15 AM EDT Office Visit [address] [address] Jamila Robledo MD Hypokalemia (Primary Dx); Nasal polyps; Screening mammogram for breast cancer; Urinary incontinence, mixed; Mild persistent asthma without complication; Anxiety 09/15/[address] [address] Jamila Robledo MD CHART PREP 09/15/2024 Travel 09/11/2024 Refill [facility] [address] [place], [place] [phone] Jamila Robledo MD Acute non-recurrent frontal sinusitis 09/10/2024 Orders Only GENERIC EXTERNAL DATA DEPARTMENT Provider, Generic External Data 08/29/2024 Orders Only [facility] External Provider, [facility] 08/21/[address] [address] Madina Corrales RN 08/21/2024 Orders Only [address] [address] Leslie Peres NP Bacterial vaginosis (Primary Dx) 08/18/2024 11:15 AM EST Office Visit [facility] [address] [place] [phone] Leslie Peres NP Lower abdominal pain (Primary Dx) 08/18/2024 Orders Only GENERIC EXTERNAL DATA DEPARTMENT Provider, Generic External Data 08/18/2024 Travel 08/18/2024 Refill [facility] [address] [place] [address] Jamila Robledo MD Acute non-recurrent frontal sinusitis 08/18/2024 Telephone [facility] [address] [place] [address] Jamila Robledo MD Nurse Triage 08/13/2024 9:20 AM EST Office Visit [facility] [address] [place] [phone] Aide Bishop MD Abnormal vaginal bleeding (Primary Dx) 08/13/2024 Telephone [facility] [address] [place] [address] Aide Bishop MD Results 08/13/2024 Telephone [facility] [address] [place] [address] Jamila Robledo MD Results 08/13/2024 Orders Only [facility] [address] [place] [address] Aide Bishop MD Hypokalemia 08/13/2024 Refill [facility] [address] [place] [address] Jamila Robledo MD 08/12/2024 Telephone [facility] [address] [place] [address] Jamila Robledo MD Nurse Triage 07/10/2024 Refill [facility] [address] [place] [address] Jamila Robledo MD Chronic pansinusitis; Mild persistent [...] Description 10/10/2024 1:30 PM EDT Office Visit [facility] [address] [place] [address] Traci Singh MD [address] [place] [address] Health Maintenance Due Date Last Done Comments [...] included. Magnesium 1.9 1.6 - 2.6 mg/dL [facility] 10/08/2024 11:5 8 AM EDT 10/08/2024 11:58 AM EDT us Generic External Data Provider LAB BLOOD ORDERAB LES Final Result [facility] [address] [place] [phone] * Hematoxylin and Eosin Stain (09/10/2024 9:48 AM EDT) 09/10/2024 9:48 AM EDT 09/10/2024 3:10 PM EDT Narrative [facility] - 09/11/2024 5:12 PM EDT ----- ------- Name: Rohini Conner ? Age/Sex: 49/F ? : 1975 Unit#: [id number] ?? Attend Dr: Margarito Benoit MD ?Re09/10/24 ?Status: DEP REF ? Location: HO.LNP ?Disch: ? ----- ------- SPEC : [id number] ? RECD: 09/10/24-1510 ? STATUS: ??SOUT ? REQ NUM: [id number] ? LAVELL: 09/10/24-947 ? SUBM DR: Margarito Benoit MD ? ENTERED: ??09/10/24-1492 ?SP TYPE: Surgical ? OTHR DR: Jamila [...] Copies To: ?? Jamila Robledo MD ?? [facility] ?? [address] [facility] ?? [place] [address] ?? [phone] ?? Margarito Benoit MD ?? [facility] [place] Women[facility] Services ?? [address] ?? [place] [address] ?? [phone] ----- ------- Signed (signature on file) Kaia Trinidad 09/11/241711 ? ----- ------- ? END OF REPORT ? us Generic External Data Provider LAB BLOOD ORDERAB LES Final Result Performing Organization Address City/[facility]/ZIP Co de Phone Number [facility] [address] [place] [address] [phone] * HPV DNA, Low/High Risk (09/10/2024 8:28 AM EDT) Pathologist [facility] HPV High Risk Negative Negative [facility] HPV Genotype 16 Negative Negative [facility] HPV Genotype 18 Negative Negative [facility] Comment:HPV testing performe d at [facility] (CLIA#[id number]), [address] [place] [address].Testing for HPV was performed using the [employer]amis[employer]0system. The presence of HPV in the female [...] ORDERAB LES Final Result Performing Organization Address [facility] Co de Phone Number [facility] [address] [place] [address] [phone] * Chlamydia/N. Gonorrhoeae RNA, TMA, Urogenitial (09/10/2024 8:28 AM EDT) Only the most recent of2 resultswithin the time period is included. [facility] CT PCR NOT DETECTED Not Detect. [facility] Comment:A not detected test result [...] psychologicalconsequences. NG PCR NOT DETECTED Not Detect. [facility] Comment:A not detected test result [...] AM EDT 09/10/2024 3:10 PM EDT Narrative [facility] - 09/10/2024 9:56 PM EDT Vaginal us Generic External Data Provider LAB MICROBIOLOGY - GENERAL ORDERABLES Final Result [facility] [address] [place] [phone] * Pap Smear (09/10/2024 8:28 AM EDT) 09/10/2024 8:28 AM EDT 09/11/2024 6:05 AM EDT Narrative [facility] - 09/16/2024 10:22 AM EDT ----- ------- Name: Rohini Conner ? Age/Sex: 49/F ? : 1975 Unit#: [id number] ?? Attend Dr: Margarito Benoit MD ?Re09/10/24 ?Status: DEP REF ? Location: HO.LNP ?Disch: ? ----- ------- SPEC : [id number] ? RECD: 09/11/24 ? STATUS: ??SOUT ? REQ NUM: [id number] ? LAVELL: 09/10/24 ? SUBM DR: Margarito [...] Copies To: ?? Jamila Robledo MD ?? [facility] ?? [address] ?? [place] [address] ?? [phone] ?? Margarito Benoit MD ?? [facility] [place] Women's Services ?? [address] ?? [place] [address] ?? [phone] ----- ------- Signed (signature on file) TEGAN Tobias (ASCP) 09/16/24 1022 ? ----- ------- ? END OF REPORT ? us Generic External Data Provider LAB CYTOLOGY ORDE RABLES Final Result [facility] [address] [place] [address] [phone] * CT Sinus w/o Contrast (08/29/2024 2:17 PM EDT) Anatomical Region Laterality Modality Computed Tomogra phy 08/29/2024 2:17 PM EDT Narrative 08/29/2024 3:33 PM EDT ? [facility] ?[address] ?[place] [address] ? [address] Scan Report ? Signed ? Patient: Conner,Rohini ?MR#: [id number] ? : 1975 ?Acct:[id number] ? Age/Sex: 49 / F ?ADM Date: 08/29/24 ? Loc: HO.CT ? Attending Dr: James Willett ? Ordering Physician: James Willett ?? Date of Service: 08/29/24 ?? Procedure(s): CT sinus wo IV con ?? Accession Number(s): [id number] ? cc: Jamila Robledo MD; James Willett ? Report Number: ?? [id number]: Total DLP = ??127.00 mGy-cm ?? EXAMINATION: [...] DD/ 1417 ? TD/TT: 08/29/24 1440 ? Campus Interviews Intern: ? Procedure Note Milton Vanegas - 08/29/[address] [place] [address] [address] Scan Report Signed Patient: Elham Conner#: [id number] : 1975Acct:[id number] Age/Sex: 49 / FADM Date: 08/29/24 Loc: HO.CT Attending Dr: James Willett Ordering Physician: James Willett Date of Service: 08/29/24 Procedure(s): CT sinus wo IV con Accession Number(s): [id number] cc: Jamila Robledo MD; James Willett Report Number: [id number]: Total DLP = 127.00 mGy-cm EXAMINATION: CT [...] MD Signed By: <Electronically signed by Hector oRme MD in OV> 08/29/24 1528 DD/ 1417 TD/TT: 08/29/24 1440 Campus Interviews Intern: [facility] External Provider IMG CT PROCEDURES Final Result * US Pelvis Transvaginal (08/18/2024 1:23 PM EST) Anatomical Region Laterality Modality Pelvis Ultrasound 08/18/2024 1:23 PM EST Narrative 08/18/2024 3:05 PM EST ? [facility] ?[address] ?[place] [address] ? Ultrasound Report ? Signed ? Patient: Conner,Rohini ?MR#: [id number] ? : 1975 ?Acct:[id number] ? Age/Sex: 49 / F ?ADM Date: 03/03/25 ? Loc: HO.ED ? Attending Dr: ? Ordering Physician: Pina Gruber ?? Date of Service: 08/18/24 ?? Procedure(s): US pelvic and transvaginal ?? Accession Number(s): [id number] ? cc: Jamila Robledo MD; Pina Gruber [...] DD/ 1323 ? TD/TT: 08/18/24 1346 ? Campus Interviews Intern: MSM ? Procedure Note Donotuseinterpreter, Image - 08/18/2024 [place] [address] Ultrasound Report Signed Patient: Elham Conner#: [id number] : 1975Acct:[id number] Age/Sex: 49 / FADM Date: 08/18/24 Loc: HO.ED Attending Dr: Ordering Physician: Pina Gruber Date of Service: 08/18/24 Procedure(s): US pelvic and transvaginal Accession Number(s): [id number] cc: Jamila Robledo MD; Pina Gruber EXAMINATION: [...] 08/18/24 1502 DD/ 1323 TD/TT: 08/18/24 1346 Campus Interviews Intern: EDSON [facility] External Provider IMG US PROCEDURES Final Result * SARS-CoV-2 RNA, Influenza A/B, and RSV RNA, Ql NAAT (08/18/2024 1:07 PM EST) Influenza A PCR NEGATIVE Negative [facility] Influenza B PCR NEGATIVE Negative [facility] Resp Syncy Virus RNA Qual PCR NEGATIVE Negative [facility] SARS COV2 PCR NEGATIVE Negative [facility] Comment:All test results mus t [...] use by authorized laboratories.Testing performed on the [employer] GeneXpert utilizingreal-time RT-PCR.All SARS CoV2 and positive influenza A/B results arereported to [facility]. 08/18/2024 1:07 PM EST 08/18/2024 1:14 PM EST Generic External Data Provider LAB MICROBIOLOGY - GENERAL ORDERABLES Final Result [facility] [address] [place], [place] [phone] * (ABNORMAL) CBC auto differential (08/18/2024 1:07 PM EST) Only the most recent of2 resultswithin the time period is included. White Blood Count 6.3 4.8 - 10.8 X10*3/uL [facility] Red Blood Count 4.81 4.20 - 5.50 X10*6/uL [facility] Hemoglobin 13.9 12.0 - 16.0 g/dl [facility] Hematocrit 40.2 37.0 - 47.0 % [facility] Mean Corpuscular Volume 83.6 80.0 - 98.0 fL [facility] Mean Corpuscular Hemoglobin 28.9 27.0 - 33.0 pg [facility] Mean Corpuscular HGB Conc 34.6 31.0 - 35.0 g/dl [facility] Red Cell Distribution Width 13.4 11.0 - 16.0 % [facility] Platelet Count 233 160 - 400 X10*3/uL [facility] Mean Platelet Volume 9.9 9.4 - 12.3 fL [facility] Neutrophils Percent Auto 48.1 45 - 73 % [facility] Imm Gran Pct Auto 0.3 0.0 - 0.4 % [facility] Lymphocytes Percent Auto 34.1 20 - 40 % [facility] Monocytes Percent Auto 7.6 2 - 11 % [facility] Eosinophils Percent Auto 8.8(H) 0 - 4 % [facility] Basophils Percent Auto 1.1 0 - 2 % [facility] NRBC Pct Auto 0.0 0.0 - 0.2 /100WBC [facility] Neutrophils Absolute Auto 3.0 2.0 - 8.3 x10*3/uL [facility] Imm Gran Abs Auto 0.02 0.00 - 0.03 X10*3/uL [facility] Lymphocytes Absolute Auto 2.2 1.2 - 4.9 X10*3/uL [facility] Monocytes Absolute Auto 0.5 0.1 - 1.2 X10*3/uL [facility] Eosinophils Absolute Auto 0.6(H) 0.0 - 0.4 X10*3/uL [facility] Basophils Absolute Auto 0.1 0.0 - 0.2 X10*3/uL [facility] NRBC Abs Auto 0.000 0.0 - 0.012 X10*3/uL [facility] 08/18/2024 1:07 PM EST 08/18/2024 1:14 PM EST us Generic External Data Provider LAB BLOOD ORDERAB LES Final Result [facility] [address] [place] [address] [phone] * (ABNORMAL) Comprehensive Metabolic Panel (08/18/2024 1:07 PM EST) Sodium 140 135 - 145 mmol/L [facility] Potassium 3.1(L) 3.3 - 5.1 mmol/L [facility] Chloride 100 96 - 108 mmol/L [facility] Carbon Dioxide 30(H) 22 - 29 mmol/L [facility] Anion Gap 13 12 - 20 [facility] Urea Nitrogen (BUN) 14 9 - 16 mg/dL [facility] Creatinine, Serum 0.62 0.5 - 1.4 mg/dL [facility] Creatinine Clr Calc Pharmacy 106.3 [facility] Comment:Provided height and weight: 154.94 cm,81.647 kg.eGFR (calculated from the MDRD study equation) and eCrCl(calculated from the Cockcroft-Gault equation) are based ondifferent parameters and may not yield comparable results.If eCrCl result is absurd, please check patient'sheight/weight. Estimated Glomerular Filt Rate >60 [facility] Comment:Chronic Kidney Disea se: Estimated GFR < 60 mL/min/1.83b3Luxlgx Kidney Disease: Estimated GFR < 15 mL/min/1.73m2 Glucose 103 60 - 115 mg/dL [facility] Calcium 9.3 8.4 - 10.2 mg/dL [facility] Bilirubin, Total 0.2 0.0 - 1.0 mg/dL [facility] Aspartate Amino Transferase 26 5 - 31 U/L [facility] Alanine Aminotransferase 37(H) 0 - 31 U/L [facility] Total Protein 7.5 6.5 - 8.0 g/dL [facility] Albumin Level 4.0 3.5 - 5.0 g/dL [facility] Alkaline Phosphatase 87 39 - 117 U/L [facility] 08/18/2024 1:07 PM EST 08/18/2024 1:14 PM EST Generic External Data Provider LAB BLOOD ORDERAB LES Final Result [facility] [address] [place] [phone] * (ABNORMAL) Bacterial Vaginosis (08/18/2024 12:00 AM EST) TRICHOMONAS VAGINALIS DETECTION BY PCR NOT DETECTED Not Detect [facility] BACTERIAL VAGINOSIS DETECTION BY PCR POSITIVE(A) Negative [facility] Comment:The BV organism targ ets [...] DETECTION BY PCR NOT DETECTED Not Detect [facility] Temi glab krusei PCR NOT DETECTED Not Detect [facility] 08/18/2024 08/18/2024 4:4 6 PM EST Leslie Peres NP LAB MICROBIOLOGY - GENERAL ORDJose DIAMOND Final Result Performing Organization Address [facility]/ZIP Co de Phone Number [facility] [address] [place] [phone] * TSH with Reflex to Free T4 (08/13/2024 10:02 AM EST) TSH reflex Free T4 0.63 0.32 - 4.0 uIU/mL [facility] Blood 08/13/2024 10:0 2 AM EST 08/13/2024 11:08 AM EST Aide Bishop MD LAB BLOOD ORDERABLES Final Result Performing Organization Address [facility] Co de Phone Number [facility] [address] [place] [phone] * Iron And Total Iron Binding Capacity (08/13/2024 10:02 AM EST) Iron 99 30 - 160 mcg/dL [facility] Total Iron Binding Capacity 314 228 - 428 mcg/dL [facility] Percent Iron Saturation 32 15 - 50 % [facility] Unsaturated Iron Binding 215 ug/dL [facility] Blood Venous blood specimen / Unknown 08/13/2024 10:02 AM EST 08/13/2024 11:08 AM EST Aide Bishop MD LAB BLOOD ORDERABLES Final Result Performing Organization Address City/[facility]/ZIP Co de Phone Number [facility] [address] [place] [phone] * Ferritin (08/13/2024 10:02 AM EST) Ferritin 155 10 - 250 ng/mL [facility] Blood Venous blood specimen / Unknown 08/13/2024 10:02 AM EST 08/13/2024 11:08 AM EST Aide Bishop MD LAB BLOOD ORDERABLES Final Result Performing Organization Address [facility] Co de Phone Number [facility] [address] [place] [phone] * (ABNORMAL) Basic Metabolic Panel (08/13/2024 10:02 AM EST) Pathologist [facility] Sodium 141 135 - 145 mmol/L [facility] Potassium 3.2(L) 3.3 - 5.1 mmol/L [facility] Chloride 104 96 - 108 mmol/L [facility] Carbon Dioxide 29 22 - 29 mmol/L [facility] Anion Gap 11(L) 12 - 20 [facility] Urea Nitrogen (BUN) 14 9 - 16 mg/dL [facility] Creatinine, Serum 0.53 0.5 - 1.4 mg/dL [facility] Estimated Glomerular Filt Rate >60 [facility] Comment:Chronic Kidney Disea se: Estimated GFR < 60 mL/min/1.25s1Gcmmdp Kidney Disease: Estimated GFR < 15 mL/min/1.73m2 Glucose 114 60 - 115 mg/dL [facility] Calcium 8.8 8.4 - 10.2 mg/dL [facility] Blood Venous blood specimen / Unknown 08/13/2024 10:02 AM EST 08/13/2024 11:08 AM EST Aide Bishop MD LAB BLOOD ORDERABLES Final Result Performing Organization Address [facility]/ZIP Co de Phone Number [facility] [address] [place] [phone] * Hepatitis C Ab (04/03/2024 11:38 AM EDT) Pathologist [facility] Hepatitis C Antibody Nonreactive Nonreactive [facility] Comment:Antibodies to HCV no t detected; does not exclude early acuteHCV infection. 04/03/2024 11:3 8 AM EDT 04/03/2024 11:48 AM EDT us Generic External Data Provider LAB BLOOD ORDERAB LES Final Result [facility] [address] [place] [address] [phone] * (ABNORMAL) POCT HGB A1C (03/11/2024 5:49 PM EDT) Hemoglobin A1C 6.3(A) 4.0 - 6.0 % QC Media Lot # [id number] Lot# Expiration Date 026 Blood 03/11/2024 5:49 PM EDT us Wicho Desai MD POINT OF CARE TEST ENTER/EDIT OR DERABLES Final Result * (ABNORMAL) Lipid Panel, Standard (01/08/2024 12:04 PM EDT) Triglycerides 143 <150 mg/dL [facility] Comment:Desirable Triglyceri de: less than 150 mg/dLBorderline High Triglyceride 150-199 mg/dLHigh Triglyceride: 200-499 mg/dLVery High Triglyceride: greater than or equal to 5OO mg/dL Cholesterol 187 <200 mg/dL [facility] Comment:Desirable Cholestero l: less than 200 mg/dLBorderline High Cholesterol: 200-239 mg/dLHigh Cholesterol: greater than 239 mg/dL LDL Cholesterol Calculated 119(H) <100 mg/dL [facility] Comment:Desirable LDL: less than 100 mg/dLNear Optimal/Above Optimal LDL: 110- 129 mg/dLBorderline High LDL: 130-159 mg/dLHigh LDL: 160-189 mg/dLVery High LDL: greater than or equal to 190 mg/dL HDL Cholesterol 40(L) >40 mg/dL [facility] Comment:Desirable HDL: great er than 40 mg/dL Note: This HDL assay may give artificially low results in patients with liver disease. Blood Venous blood specimen / Unknown 01/08/2024 12:04 PM EDT 01/08/2024 1:04 PM EDT us Jamila Beebe MD LAB BLOOD ORDERABLES Final Result [facility] [address] [place] [phone] * Hm Colonoscopy (09/01/2022 9:48 AM [...] Legacy Procedure: Mammography Report 1 Kimberley Tavares FRONT END ASSISTANT IMG BI PROCEDURES Final Result from Last 3 Months or Most Recently Relevant to Health Maintenance [place] [address] [place] [address] - [employer] Care Teams Wind Energy Technician Relationship Specialty Start Date End Date Jamila Robledo MD [address] [place] [phone] PCP - General Family Medicine 05/02/19
--- OUTSIDE RECORDS SUMMARY | 2024-10-08 14:11 | XMS_ITS | Encounter Summary ---
Author Organization [employer] Address [address] [place] [address] [place] [address] Care Team Providers Care Advertising Job Titles Name Role Phone Jamila Robledo MD Primary Care Provide r Reason for Visit * Reason Comments Med Refill Encounter Details Date Type Department Care Team (Late Contact Info) Description 01/19/2023 Refill [facility] [address] [place] [phone] Liza Matos FNP [address] [place] [address] Dept [place] [address] Psychophysiological insomnia Social History Tobacco Use Types [...] 1:30 PM EDT Office Visit [facility] [address] [place] [phone] Traci Singh MD [address] [place], [place] [phone] documented as of this encounter Visit Diagnoses Diagnosis Psychophysiological insomnia Persistent disorder of initiating or maintaining sleep documented in this encounter Additional Health Concerns Assessment Noted Time PHQ-9 Depression Total Score: 9 11/04/19 23 2:36 PM EDT documented as of this encounter Care Teams Advertising Job Titles Relationship Specialty Start Date End Date Jamila Robledo MD [address] [place] [address] PCP - General Family Medicine 05/02/19 documented as of this encounter
--- OUTSIDE RECORDS SUMMARY | 2024-10-08 14:11 | XMS_ITS | Encounter Summary ---
Author Organization [employer] Address [address] [place] [address] Care Team Providers Care Chef Name Role Phone Jamila Robledo MD Primary Care Provide r Encounter Details Date Type Department Care Team ([facility] Contact Info) Description 09/16/2024 Orders Only [facility] [address] [place] [address] Provider, MD Armen Social History Tobacco Use [...] Description 10/10/2024 1:30 PM EDT Office Visit [facility] [address] [place] [address] Traci Singh MD [address] [place] [address] documented as of this encounter Procedures Procedure [...] documented as of this encounter Care Teams Chef Relationship Specialty Start Date End Date Jamila Robledo MD [address] [place] [address] PCP - General Family Medicine 05/02/19 documented as of this encounter
--- OUTSIDE RECORDS SUMMARY | 2024-10-08 14:11 | XMS_ITS | Encounter Summary ---
Author Organization [employer] Address [address] [place] [address] 7t [place] [address] Care Team Providers Care Refrigeration Mechanic Helper Name Role Phone Jamila Robledo MD Primary Care Provide r Reason for Visit * Reason Comments Med Refill Encounter Details Date Type Department Care Team ([facility] Contact Info) Description 11/28/2022 Refill [facility] [address] [place] [address] Jamila Robledo MD [address] [place] [address] Acute non-recurrent frontal sinusitis Social History Tobacco [...] Upcoming Encounters Date Type Department Care Team ([facility] Contact Info) Description 10/10/2024 1:30 PM EDT Office Visit [facility] [address] [place] [address] Traci Singh MD [address] [place] [address] documented as of this encounter Visit Diagnoses Diagnosis Acute non-recurrent frontal sinusitis documented in this encounter Additional Health Concerns Assessment Noted Time PHQ-9 Depression Total Score: 9 11/04/19 23 2:36 PM EDT documented as of this encounter Care Teams Refrigeration Mechanic Helper Relationship Specialty Start Date End Date Jamila Robledo MD [address] [place] [address] PCP - General Family Medicine 05/02/19 documented as of this encounter
[2024-10-12 11:08] LABS: Renin 7.18 ng/mL/h (0.25-5.82)
== END 2024-10-08 11:14 | disposition home or self-care (01) ==
LOC: HO.LAB 11:13
PROVIDERS: PCP Internal Medicine; Referring Provider Internal Medicine; Visit Provider Internal Medicine Nephrology
DX: I10 Essential (primary) hypertension (principal); E87.6 Hypokalemia
CPT/HCPCS: 36415; 82088; 83735; 84244; 99202

== ENCOUNTER 2024-10-08 11:13 | Outpatient (AMB) | payer OTHER, SELFPAY ==
--- NOTE | 2024-10-08 11:19 | HO.NEPHOV ---
Vital Signs 10/08/24 11:22 Height 5 ft 1 in Weight 191 lb BMI 36.1 BP 116/80 Blood Pressure Location Lt brachial Position Sitting Pulse 99 Pulse Source Pulse Oximeter Pulse Oximetry (%) 95 Oxygen Delivery Method Room Air Intake Visit Reasons: ENP: Hypokalemia-Conf Machine Splitter Required: No Accompanied by: Self / Same As Patient Allergies famotidine [FAMOTIDINE] Allergy (Mild, Verified 10/08/24 11:22) HEADACHES ENVIRONMENTAL Allergy (Intermediate, Uncoded 08/18/24 12:49) NASAL CONGESTION HPI Comments Details: I had the privilege of seeing Rohini in consultation for hypertension and hypokalemia. She has history of bouts of ongoing intermittent diarrhea for which she has seen Gastroenterology. She also has been taking hydrochlorothiazide for her hypertension as well as albuterol. She denies any nausea ,vomiting or diuretic abuse. She has no history of vascular disease including renal artery stenosis. She has no history of any adrenal adenomas or GRA. She denies any history of sleep apnea. She has no family history of hypokalemia and hypertension. She did not have any specific systemic complaints at the time of this office visit [facility] Medical History (Updated 10/08/24 @ 11:29 by Rufino Guerrero MD) Urinary incontinence, mixed Nasal polyps Abnormal vaginal bleeding Trochanteric bursitis of right hip Right hip pain Prediabetes Hypokalemia Chronic maxillary sinusitis Epigastric pain Chronic pansinusitis Vascular insufficiency Acute non-recurrent frontal sinusitis Rash Callus of foot Allergic rhinitis Bacterial sinusitis Colitis Cramp in limb Decreased thyroid stimulating hormone level Excessive and frequent menstruation Hemorrhoids Pain in finger Concetta-menopause Skin tag Cough Snoring Essential (primary) hypertension Bleeding hemorrhoids Chronic back pain Sleep apnea Depression GERD (gastroesophageal reflux disease) Anxiety Hypertension Asthma Tachycardia Surgical History Tubal ligation status H/O hand surgery Hx of foot surgery History of esophagogastroduodenoscopy (EGD) H/O colonoscopy Family History Father Stomach cancer Social History Household Members: Family Alcohol intake: never Patient Tobacco Use Status: Current everyday Tobacco user Tobacco use type: Cigarette Cigarettes Per Day: 10 Years Smoked: 40 Review of Systems Const All systems reviewed & are unremarkable except as noted in HPI and below Physical Exam Vital Signs: Last Vital Signs Pulse 99 10/08/24 11:22 BP 116/80 10/08/24 11:22 Pulse Ox 95 10/08/24 11:22 Oxygen Delivery Method Room Air 10/08/24 11:22 BMI result Body Mass Index 36.1 Const General: comfortable and no acute distress Orientation/consciousness: patient oriented x3 HEENT Head: Yes normocephalic Mouth: Normal oral and palatal mucosa present Eyes EOM: EOMs intact bilaterally Neck Neck: Yes supple Resp Auscultation: clear to auscultation bilaterally Cardio Jugular venous distension: no JVD Rate: regular rate GI Palpation (GI): Soft to palpation Auscultation: normal bowel sounds General: Yes no CVA tenderness Back/Spine/Pelvis Back: no CVA tenderness Skin General skin exam: no rashes or lesions noted Neuro General: patient oriented x3 and moves all extremities Extrem General: Yes no pedal edema Results Reviewed Nephrology Results: Hgb 13.9 g/dl (12.0-16.0) 08/18/24 WBC 6.3 X10*3/uL (4.8-10.8) 08/18/24 Plt Count 233 X10*3/uL (160-400) 08/18/24 Sodium 140 mmol/L (135-145) 08/18/24 Potassium 3.1 mmol/L (3.3-5.1) L 08/18/24 Chloride 100 mmol/L (96-108) 08/18/24 Carbon Dioxide 30 mmol/L (22-29) H 08/18/24 BUN 14 mg/dL (9-16) 08/18/24 Creatinine 0.62 mg/dL (0.5-1.4) 08/18/24 Calcium 9.3 mg/dL (8.4-10.2) 08/18/24 Assessment & Plan Assessment & Plan (1) Hypertension: Code(s): I10 - Essential (primary) hypertension Category: Medical Qualifiers: Hypertension type: unspecified Qualified Code(s): I10 - Essential (primary) hypertension (2) Hypokalemia: Code(s): E87.6 - Hypokalemia Category: Medical Plan Rohini has history of hypertension and has hypokalemia. She has history of intermittent diarrhea and takes hydrochlorothiazide as well as albuterol. Her hydrochlorothiazide needs to be discontinued. I ordered ultrasound of renal arteries as well as further workup. She likely need CT scan of her adrenals. I will optimize her antihypertensive medications with the evolving data. Answered all questions. Follow-up appointment given. Orders: Orders Aldosterone 10/08/24 I10 - Essential (primary) hypertension, E87.6 - Hypokalemia US renal BI 1 Month E87.6 - Hypokalemia, I10 - Essential (primary) hypertension Magnesium 10/08/24 E87.6 - Hypokalemia Renin 10/08/24 I10 - Essential (primary) hypertension, E87.6 - Hypokalemia US renal doppler 1 Month E87.6 - Hypokalemia, I10 - Essential (primary) hypertension Coding Level of Care Code New Pt Level 4 (22125) Diagnoses Hypertension, unspecified type I10 Hypertension type: unspecified Hypokalemia E87.6
[2024-10-08 11:22] VITALS: BP 116/80; PULSE 99; O2SAT 95; BMI 36.1
--- OUTSIDE RECORDS SUMMARY | 2024-10-08 13:33 | XMS_ITS | Data Portability ---
Author Organization [employer] Address [address] [place] [phone] Care Team Providers Care Head Of Merchandise Buying Name Role Phone [facility] Referring Provider [facility] Referring Provider [phone] Assessment Encounter Date Assessment Date Assessment LastModified by Organization Details LastModified Time 11/14/2022 11/14/2022 As noted, we were called to see this patient regarding concerns of sinus congestion. Evaluation in the field was performed by my door opener colleague, as noted above, I provided real-time [...] tablets in a dose pack 2022 023 [facility] am98 [facility][id number], [address] [place], [address], 3 13:07:58 Patient TargetsNo targets recorded. Patient [...] 3 97 % 97 % 18 /min 60660.6 8 g 98.4 [degF] 83 /min 157.48 cm 134 mm[Hg] 82 mm[Hg] Not Available [employer] 3 13:02:00 Date Recorded Body temperature Body weight Oxygen saturation Oxygen saturation in Arterial blood by Pulse oximetry Respiratory rate Heart rate Systolic blood pressure Diastolic blood pressure Provider Name and Address Organization Details Last Updated DateTime 3 97.1 [degF] 78707.2 4 g 97 % 97 % 16 /min 76 /min 163 mm[Hg] 96 mm[Hg] Not Available [employer] 3 14:04:45 Date Recorded Body weight Body height Body temperature Oxygen saturation Oxygen saturation in Arterial blood by Pulse oximetry Heart rate Respiratory rate Systolic blood pressure Diastolic blood pressure Provider Name and Address Organization Details Last Updated DateTime 3 09726.6 4 g 157.48 cm 97.8 [degF] 95 % 95 % 61 /min 18 /min 124 mm[Hg] 80 mm[Hg] Not Available [employer] 3 11:16:46 Social History None recorded. Functional Status None recorded. Mental Status None recorded. Family History Nothing Reported. Medical History No medical history recorded. Gynecological HistoryNo gynecological history recorded. Obstetrics History GPAL:G 0 P 0 0 0 0 Past Encounters Encounter ID Performer Location Encounter Start Date Encounter Closed Date Diagnosis/Indication Diagnosis SNOMED-CT Code Diagnosis ICD10 Code Diagnosis Note [id number] Sneha Cintron MD [facility] [address] [place] [phone] 11/09/2022 14:04:34 11/10/2022 14:20:47 Acute bacterial sinusitis 73887452 J01.90 47 year old female, being evaluated [...] y changing to an alternativ e regimen. [id number] NEELAM ALVARADO MD [facility] [address] [place] [phone] 11/14/2022 11:16:43 11/15/2022 09:34:22 Congestion of nasal sinus 77076482 R09.81 [id number] Bam Luo MD [facility] [address] [place] [phone] 05/06/2023 13:01:58 05/06/2023 16:22:04 COVID-19 854010993 U07.1 47yo woman presents with URI symptoms [...] levels expected to be safe. Acute COVID-19 [id number] 8 U07.1 We discussed the benefit of Paxlovid to reduce the risk of hospitaliz ation and , and the potential downsides/ side effects, including dysgeusia, headache, COVID rebound, and the possibilit y of medication interactio ns despite my efforts to review medication s and senior vice president & general counsel on discontinu ation. We discussed [...] Navarro Member ID Guarantor Name 11/09/2022 1 [facility] - DOS ON OR AFTER 2022 - DUAL ELIGIBLE - USP OPTIONS AND ONE CARE (MEDICARE REPLACEMENT/ADV ANTAGE - HMO) Rohini Conner [id number] Rohini Conner 11/14/2022 1 [facility] - DOS ON OR AFTER 2022 - DUAL ELIGIBLE - USP OPTIONS AND ONE CARE (MEDICARE REPLACEMENT/ADV ANTAGE - HMO) Rohini Conner [id number] Rohini Conner 05/06/2023 1 [facility] - DOS ON OR AFTER 2022 - DUAL ELIGIBLE - USP OPTIONS AND ONE CARE (MEDICARE REPLACEMENT/ADV ANTAGE - HMO) Rohini Conner [id number] Rohini Conner Notes Date Note Type Note [...] visit. Sneha Cintron MD [address] [facility],[address], [place], [phone], [employer] 11/09/2022 14:09:36 11/14/2022 text/html CRC Nursing Assessment: Reason For Request: Follow up visit>Sinus infection, which has not gotten better. Chief Complaints: URI PMH: COPD/Asthma, Hypertension, Heart Disease Allergies: No Known Comments: Member was seen by [facility] last week. Member was on antibiotic amoxicillin and completed the course. Member continues to be congested, mild cough from being dry. Member has chills no fever but has pain and sinus pressure . Member has sob when sleeping and has to sleep upright Verified identity by .................. .................. .................. .................. .................. .................. .................. ............... Strike Plate Attacher Note From Racheal Singleton: Sent to a call for a pt requesting follow up due to sinus infection. SC8 arrives on scene, pt is alert and oriented, airway is patent. [facility] prescribed amoxicillin x 7 days for [...] expresses Zertec D seems to be ineffective. [facility] suggests changing to Shi and offers to send script for Shi and Saline nasal spray. Pt declines stating she's tried Shi and has Saline nasal spray. Pt advised to follow up with PCP for further evaluation. [facility] sends follow up request to pt's care team. Red flags discussed. Pt has no further questions. .................. .................. .................. .................. .................. .................. .................. ............... Disposition: Fulfilled NEELAM ALVARADO MD [address] [place] [address],[address], [place], [phone], [employer] 11/14/2022 15:15:16 05/06/2023 text/html HPI: I tested [...] .................. .................. .................. .................. .................. .................. ............... Strike Plate Attacher Note From Yosi Araujo: [facility] visit for [...] for symptoms with some improvement. Consulted with [facility] Dr. Luo who prescribed paxlovid for patients symptoms. Prescription sent to patients pharmacy. Patient education provided and encouraged to continue with home remedies as well. .................. .................. .................. .................. .................. .................. .................. ............... Disposition: Fulfilled Bam Luo MD [address] [facility],[address], [place], [address], [email or web address] 05/06/2023 13:08:00 OBGyn Episode No OBEpisode recorded.
--- OUTSIDE RECORDS SUMMARY | 2024-10-08 13:33 | XMS_ITS | Encounter Summary ---
Author Organization [employer] Address [address] [facility] [address] [place] [address] Care Team Providers Care Ranch Helper Name Role Phone Jamila Robledo MD Primary Care Provide r Reason for Visit * Reason Comments Med Change Request Encounter Details Date Type Department Care Team ([facility] Contact Info) Description 10/04/2024 Refill [facility] [address] [place] [address] Jamila Robledo MD [address] [place] [address] Social History Tobacco Use Types Packs/Day Years [...] Description 10/10/2024 1:30 PM EDT Office Visit [facility] MEDICINE [address] [place], [place] [phone] Traci Singh MD [address] [place] [address] documented as of this encounter Visit Diagnoses Not on filedocumented in this encounter Additional Health Concerns Assessment Noted Time PHQ-9 Depression Total Score: 0 02/06/20 24 2:56 PM EDT documented as of this encounter Care Teams Ranch Helper Relationship Specialty Start Date End Date Jamila Robledo MD [address] [place] [address] [phone] PCP - General Family Medicine 05/02/19 documented as of this encounter
--- OUTSIDE RECORDS SUMMARY | 2024-10-08 13:33 | XMS_ITS | Encounter Summary ---
Author Organization [employer] Address [address] [facility] [address] [place] [address] Care Team Providers Care Transit Mixer Driver Name Role Phone Jamila Robledo MD Primary Care Provide r Encounter Details Date Type Department Care Team ([facility] Contact Info) Description 10/08/2024 Orders Only GENERIC EXTERNAL DATA DEPARTMENT Provider, [...] 1:30 PM EDT Office Visit [facility] MEDICINE [address] [place] [address] Traci Singh MD [address] [place] [address] documented as of this encounter Procedures Procedure Name Priority Date/Time Associated Diagnosis Comments MAGNESIUM Routine 10/08/2024 11:58 AM EDT documented in this encounter Results * Magnesium (10/08/2024 11:58 AM EDT) Magnesium 1.9 1.6 - 2.6 mg/dL [facility] 10/08/2024 11:5 8 AM EDT 10/08/2024 11:58 AM EDT us Generic External Data Provider LAB BLOOD ORDERAB LES Final Result [facility] [address] [place] [phone] documented in this encounter Visit Diagnoses Not on filedocumented in this encounter Additional Health Concerns Assessment Noted Time PHQ-9 Depression Total Score: 0 02/06/20 24 2:56 PM EDT documented as of this encounter Care Teams Transit Mixer Driver Relationship Specialty Start Date End Date Jamila Robledo MD [address] [place] [phone] PCP - General Family Medicine 05/02/19 documented as of this encounter
--- OUTSIDE RECORDS SUMMARY | 2024-10-08 13:33 | XMS_ITS | Encounter Summary ---
Author Organization [employer] Address [address] [facility] [facility] [address] [facility] [address] [place] [address] Care Team Providers Care Cordage Sales Representative Name Role Phone Jamila Robledo MD Primary Care Provide r Reason for Visit * Reason Comments Med Refill Encounter Details Date Type Department Care Team ([facility] Contact Info) Description 08/18/2024 Refill [facility] MED & PEDS [address] [place] [address] Jamila Robledo MD [address] [place] [address] Acute non-recurrent frontal sinusitis Social History Tobacco [...] Description 10/10/2024 1:30 PM EDT Office Visit [facility] MEDICINE [address] [place], [place] [phone] Traci Singh MD [address] [place] [address] documented as of this encounter Visit Diagnoses Diagnosis Acute non-recurrent frontal sinusitis documented in this encounter Additional Health Concerns Assessment Noted Time PHQ-9 Depression Total Score: 0 02/06/20 24 2:56 PM EDT documented as of this encounter Care Teams Cordage Sales Representative Relationship Specialty Start Date End Date Jamila Robledo MD [address] [place], [place] [phone] PCP - General Family Medicine 05/02/19 documented as of this encounter
--- OUTSIDE RECORDS SUMMARY | 2024-10-08 13:33 | XMS_ITS | Encounter Summary ---
Author Organization [employer] Address [address] [facility] [address] [place] [address] Care Team Providers Care Health Clinician Name Role Phone Jamila Robledo MD Primary Care Provide r Reason for Visit * Reason Onset Date Comments Durable Medical Equipment 10/07/2024 [facility] Form: Incontinence Pad Encounter Details Date Type Department Care Team ([facility] Contact Info) Description 10/07/2024 Telephone [facility] MEDICINE [address] [place] [address] Jamila Robledo MD [address] [place] [address] Durable Medical Equipment ([facility] Form: Incontinence Pad) Social History Tobacco Use Types Packs/Day Years [...] encounter Miscellaneous Notes * Telephone Encounter - Ericka Brown - 10/07/2024 1:45 PM EDT Confirmation of order for inserts/liners from [employer] placed on PCP desk for signature. documented in this encounter Plan of Treatment Upcoming Encounters Date Type Department Care Team (Late st Contact Info) Description 10/10/2024 1:30 PM EDT Office Visit [facility] MEDICINE [address] [place] [address] Traci Singh MD [address] [place] [address] documented as of this encounter Visit Diagnoses Not on filedocumented in this encounter Additional Health Concerns Assessment Noted Time PHQ-9 Depression Total Score: 0 02/06/20 24 2:56 PM EDT documented as of this encounter Care Teams Health Clinician Relationship Specialty Start Date End Date Jamila Robledo MD [address] [place] [address] PCP - General Family Medicine 05/02/19 documented as of this encounter
--- OUTSIDE RECORDS SUMMARY | 2024-10-08 13:34 | XMS_ITS | Encounter Summary ---
Author Organization [employer] Address [address] [facility] [address] [address] [place] [address] Care Team Providers Care Event Decorator Name Role Phone Jamila Robledo MD Primary Care Provide r Reason for Visit * Reason Comments Med Change Request Encounter Details Date Type Department Care Team ([facility] Contact Info) Description 06/28/2023 Refill [facility] [address] [place], [place] [phone] Ruth Costello FNP [address] [place] [address] Upper back pain on left side Social [...] Description 10/10/2024 1:30 PM EDT Office Visit [facility] MEDICINE [address] [place] [address] Traci Singh MD [address] [place] [address] documented as of this encounter Visit Diagnoses Diagnosis Upper back pain on left side documented in this encounter Additional Health Concerns Assessment Noted Time PHQ-9 Depression Total Score: 9 11/04/19 23 2:36 PM EDT documented as of this encounter Care Teams Event Decorator Relationship Specialty Start Date End Date Jamila Robledo MD [address] [place] [address] PCP - General Family Medicine 05/02/19 documented as of this encounter
--- OUTSIDE RECORDS SUMMARY | 2024-10-08 13:34 | XMS_ITS | Clinical Summary ---
Author Organization [employer] Address [address] [place] [address] [address] [place] [address] Care Team Providers Care Medical Researcher Name Role Phone Jamila Robledo MD Primary [...] 2024 Active Blood Glucose Monitoring Suppl (FreeStyle Creole Lite) w/Device kitIndications: Prediabetes Use to test [...] or chew. 9 tablet 025 2025 Active fluticasone (Flonase) 50 MCG/ACT nasal sprayIndication [...] TIMES DAILY NEEDED. 15 tablet 025 Active baclofen (Lioresal) 10 MG tablet TAKE 1 TABLET BY MOUTH 3 TIMES DAILY 90 tablet 025 Active LORazepam (Ativan) 1 MG [...] times daily. 90 tablet 025 2024 Discontinued baclofen (Lioresal) 10 MG tablet TAKE 1 TABLET BY MOUTH 3 TIMES DAILY 90 tablet 025 2024 Discontinued Active Problems Problem Noted Date [...] bleeding x2 days. Not currently established with [facility]. Abdominal exam benign. -ordered CBC, TSH, iron panel, and BMP. -ordered transvaginal US -referred to [facility] -prescribed medroxyPROGESTERone 5 mg, TID x5days Right [...] Encounters Date Type Department Care Team Description 10/08/2024 Orders Only GENERIC EXTERNAL DATA DEPARTMENT Provider, Generic External Data 10/07/[address] [address] Jamlia Robledo MD Durable Medical Equipment (Moe and Tru Form: Incontinence Pad) 10/04/2024 Refill [facility] [address] [place] [address] Jamila Robledo MD 09/24/2024 Telephone [facility] [address] [place] [address] Jamila Robledo MD 09/17/[address] [address] Jamila Robledo MD [facility] [place]/16/2024 Orders Only [facility] [address] [place], [place] [phone] Armen Vaughan MD 09/15/2024 11:15 AM EDT Office Visit [address] [address] Jamila Robledo MD Hypokalemia (Primary Dx); Nasal polyps; Screening mammogram for breast cancer; Urinary incontinence, mixed; Mild persistent asthma without complication; Anxiety 09/15/[address] [address] Jamila Robledo MD CHART PREP 09/15/2024 Travel 09/11/2024 Refill [facility] [address] [place], [place] [phone] Jamila Robledo MD Acute non-recurrent frontal sinusitis 09/10/2024 Orders Only GENERIC EXTERNAL DATA DEPARTMENT Provider, Generic External Data 08/29/2024 Orders Only [facility] External Provider, [facility] 08/21/[address] [address] Madina Corrales RN 08/21/2024 Orders Only [address] [address] Leslie Peres NP Bacterial vaginosis (Primary Dx) 08/18/2024 11:15 AM EST Office Visit [facility] [address] [place] [address] Leslie Peres NP Lower abdominal pain (Primary Dx) 08/18/2024 Orders Only GENERIC EXTERNAL DATA DEPARTMENT Provider, Generic External Data 08/18/2024 Travel 08/18/2024 Refill [facility] [address] [place] [address] Jamila Robledo MD Acute non-recurrent frontal sinusitis 08/18/2024 Telephone [facility] [address] [place] [address] Jamila Robledo MD Nurse Triage 08/13/2024 9:20 AM EST Office Visit [facility] [address] [place] [address] Aide Bishop MD Abnormal vaginal bleeding (Primary Dx) 08/13/2024 Telephone [facility] [address] [place] [address] Aide Bishop MD Results 08/13/2024 Telephone [facility] [address] [place] [address] Jamila Robledo MD Results 08/13/2024 Orders Only [facility] [address] [place] [address] Aide Bishop MD Hypokalemia 08/13/2024 Refill [facility] [address] [place] [address] Jamila Robledo MD 08/12/2024 Telephone [facility] [address] [place] [address] Jamila Robledo MD Nurse Triage 07/10/2024 Refill [facility] [address] [place] [address] Jamila Robledo MD Chronic pansinusitis; Mild persistent [...] Description 10/10/2024 1:30 PM EDT Office Visit [facility] [address] [place] [address] Traci Singh MD [address] [place] [address] Health Maintenance Due Date Last Done Comments CT Colonography 1975 FIT DNA/Cologuard 1975 FIT 1975 FOBT 1975 HIV Screening 1975 Sigmoidoscopy 1975 Family Planning (PISQ) 1990 Hepatitis B Vaccines (1 of 3 - 19+ 3-dose series) 1994 COVID-19 Vaccine ( - season) 2024 05/02/2021, 09/01/2020 Influenza Vaccine (#1) 2024 02/24/2009 Mammogram 05/01/2024 05/01/2022, 10/16, 08/28/2018, Additional history exists SDOH Screening 10/17/2024 10/18/2023 Alcohol/Substance Use Screening 02/05/2025 02/06/2024 Depression Screening 02/05/2025 02/06/2024, 02/06/20 Diabetes: Hemoglobin A1C 03/11/2025 024, 01/08/2024, 10/07/2020 Zoster Vaccines (1 of [...] Comments MAGNESIUM Routine 10/08/2024 11:58 AM EDT HEMATOXYLIN AND EOSIN STAIN Routine 09/10/2024 9:48 [...] Recently Relevant to Health Maintenance Results * Magnesium (10/08/2024 11:58 AM EDT) Only the most recent of2 resultswithin the time period is included. Magnesium 1.9 1.6 - 2.6 mg/dL [facility] 10/08/2024 11:5 8 AM EDT 10/08/2024 11:58 AM EDT us Generic External Data Provider LAB BLOOD ORDERAB LES Final Result [facility] [address] [place] [phone] * Hematoxylin and Eosin Stain (09/10/2024 9:48 AM EDT) 09/10/2024 9:48 AM EDT 09/10/2024 3:10 PM EDT Narrative [facility] - 09/11/2024 5:12 PM EDT ----- ------- Name: Rohini Conner ? Age/Sex: 49/F ? : 1975 Unit#: [id number] ?? Attend Dr: Margarito Benoit MD ?Re09/10/24 ?Status: DEP REF ? Location: HO.LNP ?Disch: ? ----- ------- SPEC : [id number] ? RECD: 09/10/24-1510 ? STATUS: ??SOUT ? REQ NUM: [id number] ? LAVELL: 09/10/24-947 ? SUBM DR: Margarito Benoit MD ? ENTERED: ??09/10/24-6141 ?SP TYPE: Surgical ? OTHR DR: Jamila [...] Copies To: ?? Jamila Robledo MD ?? [facility] ?? [address] [facility] ?? [place] [address] ?? [phone] ?? Margarito Benoit MD ?? [facility] ?? [address] [facility] [address] ?? [place] [address] ?? [phone] ----- ------- Signed (signature on file) Kaia Trinidad 09/11/241711 ? ----- ------- ? END OF REPORT ? us Generic External Data Provider LAB BLOOD ORDERAB LES Final Result Performing Organization Address City/[facility]/ZIP Co de Phone Number [facility] [address] [place] [address] [phone] * HPV DNA, Low/High Risk (09/10/2024 8:28 AM EDT) Pathologist [facility] HPV High Risk Negative Negative [facility] HPV Genotype 16 Negative Negative [facility] HPV Genotype 18 Negative Negative [facility] Comment:HPV testing performe d at [facility] (CLIA#[id number]), [address] [place] [phone].Testing for HPV was performed using the [employer]0system. The presence of HPV in the female [...] 8:28 AM EDT 09/11/2024 7:08 AM EDT Generic External Data Provider LAB BLOOD ORDERAB LES Final Result Performing Organization Address [facility] Co de Phone Number [facility] [address] [place] [address] [phone] * Chlamydia/N. Gonorrhoeae RNA, TMA, Urogenitial (09/10/2024 8:28 AM EDT) Only the most recent of2 resultswithin the time period is included. [facility] CT PCR NOT DETECTED Not Detect. [facility] Comment:A not detected test result [...] psychologicalconsequences. NG PCR NOT DETECTED Not Detect. [facility] Comment:A not detected test result [...] 8:28 AM EDT 09/10/2024 3:10 PM EDT Narrative [facility] - 09/10/2024 9:56 PM EDT Vaginal us Generic External Data Provider LAB MICROBIOLOGY - GENERAL ORDERABLES Final Result [facility] [address] [place] [phone] * Pap Smear (09/10/2024 8:28 AM EDT) 09/10/2024 8:28 AM EDT 09/11/2024 6:05 AM EDT Narrative [facility] - 09/16/2024 10:22 AM EDT ----- ------- Name: Rohini Conner ? Age/Sex: 49/F ? : 1975 Unit#: [id number] ?? Attend Dr: Margarito Benoit MD ?Re09/10/24 ?Status: DEP REF ? Location: HO.LNP ?Disch: ? ----- ------- SPEC : [id number] ? RECD: 09/11/24 ? STATUS: ??SOUT ? REQ NUM: [id number] ? LAVELL: 09/10/24 ? SUBM DR: Margarito [...] Copies To: ?? Jamila Robledo MD ?? [facility] ?? [address] ?? [place] [address] ?? [phone] ?? Margarito Benoit MD ?? [facility] ?? [address] [facility] [address] ?? [place] [address] ?? [phone] ----- ------- Signed (signature on file) TEGAN Tobias (ASCP) 09/16/24 1022 ? ----- ------- ? END OF REPORT ? us Generic External Data Provider LAB CYTOLOGY ORDE RABLES Final Result [facility] [address] [place] [address] [phone] * CT Sinus w/o Contrast (08/29/2024 2:17 PM EDT) Anatomical Region Laterality Modality Computed Tomogra phy 08/29/2024 2:17 PM EDT Narrative 08/29/2024 3:33 PM EDT ? [facility] ?[address] ?[place] [address] ? CT Scan Report ? Signed ? Patient: Conner,Rohini ?MR#: [id number] ? : 1975 ?Acct:[id number] ? Age/Sex: 49 / F ?ADM Date: 08/29/24 ? Loc: HO.CT ? Attending Dr: James Willett ? Ordering Physician: James Willett ?? Date of Service: 08/29/24 ?? Procedure(s): CT sinus wo IV con ?? Accession Number(s): [id number] ? cc: Jamila Robledo MD; James Willett ? Report Number: ?? [id number]: Total DLP = ??127.00 mGy-cm ?? EXAMINATION: [...] DD/ 1417 ? TD/TT: 08/29/24 1440 ? Synchronizer: ? Procedure Note Milton Vanegas - 08/29/[address] [place] [address] [address] Scan Report Signed Patient: Elham Conner#: [id number] : 1975Acct:[id number] Age/Sex: 49 / FADM Date: 08/29/24 Loc: HO.CT Attending Dr: James Willett Ordering Physician: James Willett Date of Service: 08/29/24 Procedure(s): CT sinus wo IV con Accession Number(s): [id number] cc: Jamila Robledo MD; James Willett Report Number: [id number]: Total DLP = 127.00 mGy-cm EXAMINATION: CT [...] 08/29/24 1528 DD/ 1417 TD/TT: 08/29/24 1440 Synchronizer: [facility] External Provider IMG CT PROCEDURES Final Result * US Pelvis Transvaginal (08/18/2024 1:23 PM EST) Anatomical Region Laterality Modality Pelvis Ultrasound 08/18/2024 1:23 PM EST Narrative 08/18/2024 3:05 PM EST ? [facility] ?[address] ?[place] [address] ? Ultrasound Report ? Signed ? Patient: Conner,Rohini ?MR#: [id number] ? : 1975 ?Acct:[id number] ? Age/Sex: 49 / F ?ADM Date: 03/03/25 ? Loc: HO.ED ? Attending Dr: ? Ordering Physician: Pina Gruber ?? Date of Service: 08/18/24 ?? Procedure(s): US pelvic and transvaginal ?? Accession Number(s): [id number] ? cc: Jamila Robledo MD; Pina Gruber [...] DD/ 1323 ? TD/TT: 08/18/24 1346 ? Synchronizer: MSM ? Procedure Note Donotuseinterpreter, Image - 08/18/2024 [place] [address] Ultrasound Report Signed Patient: Elham Conner#: [id number] : 1975Acct:[id number] Age/Sex: 49 / FADM Date: 08/18/24 Loc: HO.ED Attending Dr: Ordering Physician: Pina Gruber Date of Service: 08/18/24 Procedure(s): US pelvic and transvaginal Accession Number(s): [id number] cc: Jamila Robledo MD; Pina Gruber EXAMINATION: [...] 08/18/24 1502 DD/ 1323 TD/TT: 08/18/24 1346 Synchronizer: EDSON [facility] External Provider IMG US PROCEDURES Final Result * SARS-CoV-2 RNA, Influenza A/B, and RSV RNA, Ql NAAT (08/18/2024 1:07 PM EST) Influenza A PCR NEGATIVE Negative [facility] Influenza B PCR NEGATIVE Negative [facility] Resp Syncy Virus RNA Qual PCR NEGATIVE Negative [facility] SARS COV2 PCR NEGATIVE Negative [facility] Comment:All test results mus t [...] use by authorized laboratories.Testing performed on the [employer] GeneXpert utilizingreal-time RT-PCR.All SARS CoV2 and positive influenza A/B results arereported to [facility]. 08/18/2024 1:07 PM EST 08/18/2024 1:14 PM EST Generic External Data Provider LAB MICROBIOLOGY - GENERAL ORDERABLES Final Result [facility] [address] [place], [place] [phone] * (ABNORMAL) CBC auto differential (08/18/2024 1:07 PM EST) Only the most recent of2 resultswithin the time period is included. White Blood Count 6.3 4.8 - 10.8 X10*3/uL [facility] Red Blood Count 4.81 4.20 - 5.50 X10*6/uL [facility] Hemoglobin 13.9 12.0 - 16.0 g/dl [facility] Hematocrit 40.2 37.0 - 47.0 % [facility] Mean Corpuscular Volume 83.6 80.0 - 98.0 fL [facility] Mean Corpuscular Hemoglobin 28.9 27.0 - 33.0 pg [facility] Mean Corpuscular HGB Conc 34.6 31.0 - 35.0 g/dl [facility] Red Cell Distribution Width 13.4 11.0 - 16.0 % [facility] Platelet Count 233 160 - 400 X10*3/uL [facility] Mean Platelet Volume 9.9 9.4 - 12.3 fL [facility] Neutrophils Percent Auto 48.1 45 - 73 % [facility] Imm Gran Pct Auto 0.3 0.0 - 0.4 % [facility] Lymphocytes Percent Auto 34.1 20 - 40 % [facility] Monocytes Percent Auto 7.6 2 - 11 % [facility] Eosinophils Percent Auto 8.8(H) 0 - 4 % [facility] Basophils Percent Auto 1.1 0 - 2 % [facility] NRBC Pct Auto 0.0 0.0 - 0.2 /100WBC [facility] Neutrophils Absolute Auto 3.0 2.0 - 8.3 x10*3/uL [facility] Imm Gran Abs Auto 0.02 0.00 - 0.03 X10*3/uL [facility] Lymphocytes Absolute Auto 2.2 1.2 - 4.9 X10*3/uL [facility] Monocytes Absolute Auto 0.5 0.1 - 1.2 X10*3/uL [facility] Eosinophils Absolute Auto 0.6(H) 0.0 - 0.4 X10*3/uL [facility] Basophils Absolute Auto 0.1 0.0 - 0.2 X10*3/uL [facility] NRBC Abs Auto 0.000 0.0 - 0.012 X10*3/uL [facility] 08/18/2024 1:07 PM EST 08/18/2024 1:14 PM EST us Generic External Data Provider LAB BLOOD ORDERAB LES Final Result [facility] [address] [place] [address] [phone] * (ABNORMAL) Comprehensive Metabolic Panel (08/18/2024 1:07 PM EST) Sodium 140 135 - 145 mmol/L [facility] Potassium 3.1(L) 3.3 - 5.1 mmol/L [facility] Chloride 100 96 - 108 mmol/L [facility] Carbon Dioxide 30(H) 22 - 29 mmol/L [facility] Anion Gap 13 12 - 20 [facility] Urea Nitrogen (BUN) 14 9 - 16 mg/dL [facility] Creatinine, Serum 0.62 0.5 - 1.4 mg/dL [facility] Creatinine Clr Calc Pharmacy 106.3 [facility] Comment:Provided height and weight: 154.94 cm,81.647 kg.eGFR (calculated from the MDRD study equation) and eCrCl(calculated from the Cockcroft-Gault equation) are based ondifferent parameters and may not yield comparable results.If eCrCl result is absurd, please check patient'sheight/weight. Estimated Glomerular Filt Rate >60 [facility] Comment:Chronic Kidney Disea se: Estimated GFR < 60 mL/min/1.46a0Cdldmp Kidney Disease: Estimated GFR < 15 mL/min/1.73m2 Glucose 103 60 - 115 mg/dL [facility] Calcium 9.3 8.4 - 10.2 mg/dL [facility] Bilirubin, Total 0.2 0.0 - 1.0 mg/dL [facility] Aspartate Amino Transferase 26 5 - 31 U/L [facility] Alanine Aminotransferase 37(H) 0 - 31 U/L [facility] Total Protein 7.5 6.5 - 8.0 g/dL [facility] Albumin Level 4.0 3.5 - 5.0 g/dL [facility] Alkaline Phosphatase 87 39 - 117 U/L [facility] 08/18/2024 1:07 PM EST 08/18/2024 1:14 PM EST Generic External Data Provider LAB BLOOD ORDERAB LES Final Result [facility] [address] [place] [phone] * (ABNORMAL) Bacterial Vaginosis (08/18/2024 12:00 AM EST) TRICHOMONAS VAGINALIS DETECTION BY PCR NOT DETECTED Not Detect [facility] BACTERIAL VAGINOSIS DETECTION BY PCR POSITIVE(A) Negative [facility] Comment:The BV organism targ ets [...] DETECTION BY PCR NOT DETECTED Not Detect [facility] Temi glab krusei PCR NOT DETECTED Not Detect [facility] 08/18/2024 08/18/2024 4:4 6 PM EST Leslie Peres NP LAB MICROBIOLOGY - GENERAL ORDJose DIAMOND Final Result Performing Organization Address [facility]/ZIP Co de Phone Number [facility] [address] [place] [phone] * TSH with Reflex to Free T4 (08/13/2024 10:02 AM EST) TSH reflex Free T4 0.63 0.32 - 4.0 uIU/mL [facility] Blood 08/13/2024 10:0 2 AM EST 08/13/2024 11:08 AM EST Aide Bishop MD LAB BLOOD ORDERABLES Final Result Performing Organization Address [facility] Co de Phone Number [facility] [address] [place] [phone] * Iron And Total Iron Binding Capacity (08/13/2024 10:02 AM EST) Iron 99 30 - 160 mcg/dL [facility] Total Iron Binding Capacity 314 228 - 428 mcg/dL [facility] Percent Iron Saturation 32 15 - 50 % [facility] Unsaturated Iron Binding 215 ug/dL [facility] Blood Venous blood specimen / Unknown 08/13/2024 10:02 AM EST 08/13/2024 11:08 AM EST Aide Bishop MD LAB BLOOD ORDERABLES Final Result Performing Organization Address City/[facility]/ZIP Co de Phone Number [facility] [address] [place] [phone] * Ferritin (08/13/2024 10:02 AM EST) Ferritin 155 10 - 250 ng/mL [facility] Blood Venous blood specimen / Unknown 08/13/2024 10:02 AM EST 08/13/2024 11:08 AM EST Aide Bishop MD LAB BLOOD ORDERABLES Final Result Performing Organization Address [facility] Co de Phone Number [facility] [address] [place] [phone] * (ABNORMAL) Basic Metabolic Panel (08/13/2024 10:02 AM EST) Pathologist [facility] Sodium 141 135 - 145 mmol/L [facility] Potassium 3.2(L) 3.3 - 5.1 mmol/L [facility] Chloride 104 96 - 108 mmol/L [facility] Carbon Dioxide 29 22 - 29 mmol/L [facility] Anion Gap 11(L) 12 - 20 [facility] Urea Nitrogen (BUN) 14 9 - 16 mg/dL [facility] Creatinine, Serum 0.53 0.5 - 1.4 mg/dL [facility] Estimated Glomerular Filt Rate >60 [facility] Comment:Chronic Kidney Disea se: Estimated GFR < 60 mL/min/1.53b4Hrneuv Kidney Disease: Estimated GFR < 15 mL/min/1.73m2 Glucose 114 60 - 115 mg/dL [facility] Calcium 8.8 8.4 - 10.2 mg/dL [facility] Blood Venous blood specimen / Unknown 08/13/2024 10:02 AM EST 08/13/2024 11:08 AM EST Adie Bishop MD LAB BLOOD ORDERABLES Final Result Performing Organization Address [facility]/ZIP Co de Phone Number [facility] [address] [place] [phone] * Hepatitis C Ab (04/03/2024 11:38 AM EDT) Pathologist [facility] Hepatitis C Antibody Nonreactive Nonreactive [facility] Comment:Antibodies to HCV no t detected; does not exclude early acuteHCV infection. 04/03/2024 11:3 8 AM EDT 04/03/2024 11:48 AM EDT us Generic External Data Provider LAB BLOOD ORDERAB LES Final Result [facility] [address] [place] [phone] * (ABNORMAL) POCT HGB A1C (03/11/2024 5:49 PM EDT) Hemoglobin A1C 6.3(A) 4.0 - 6.0 % QC Media Lot # [id number] Lot# Expiration Date 026 Blood 03/11/2024 5:49 PM EDT us Wicho Desai MD POINT OF CARE TEST ENTER/EDIT OR DERABLES Final Result * (ABNORMAL) Lipid Panel, Standard (01/08/2024 12:04 PM EDT) Triglycerides 143 <150 mg/dL [facility] Comment:Desirable Triglyceri de: less than 150 mg/dLBorderline High Triglyceride 150-199 mg/dLHigh Triglyceride: 200-499 mg/dLVery High Triglyceride: greater than or equal to 5OO mg/dL Cholesterol 187 <200 mg/dL [facility] Comment:Desirable Cholestero l: less than 200 mg/dLBorderline High Cholesterol: 200-239 mg/dLHigh Cholesterol: greater than 239 mg/dL LDL Cholesterol Calculated 119(H) <100 mg/dL [facility] Comment:Desirable LDL: less than 100 mg/dLNear Optimal/Above Optimal LDL: 110- 129 mg/dLBorderline High LDL: 130-159 mg/dLHigh LDL: 160-189 mg/dLVery High LDL: greater than or equal to 190 mg/dL HDL Cholesterol 40(L) >40 mg/dL [facility] Comment:Desirable HDL: great er than 40 mg/dL Note: This HDL assay may give artificially low results in patients with liver disease. Blood Venous blood specimen / Unknown 01/08/2024 12:04 PM EDT 01/08/2024 1:04 PM EDT us Jamila Beebe MD LAB BLOOD ORDERABLES Final Result [facility] [address] [place] [phone] * Hm Colonoscopy (09/01/2022 9:48 AM [...] Legacy Procedure: Mammography Report 1 Kimberley Tavares METAL ANNEALER IMG BI PROCEDURES Final Result from Last 3 Months or Most Recently Relevant to Health Maintenance [place] [address] [place] [address] - [employer] Care Teams Medical Researcher Relationship Specialty Start Date End Date Jamila Robledo MD [address] [place] [phone] PCP - General Family Medicine 05/02/19
--- OUTSIDE RECORDS SUMMARY | 2024-10-08 13:34 | XMS_ITS | Encounter Summary ---
Author Organization [employer] Address [address] [facility] [address] [place] [address] Care Team Providers Care Passenger Elevator Operator Name Role Phone Jamila Robledo MD Primary Care Provide r Reason for Visit * Reason Comments Med Refill Encounter Details Date Type Department Care Team ([facility] st Contact Info) Description 08/08/2023 Refill [facility] [address] [place], [place] [phone] Jamila Robledo MD [address] [place] [address] Psychophysiological insomnia Social History Tobacco Use Types [...] Description 10/10/2024 1:30 PM EDT Office Visit [facility] [address] [place], [place] [phone] Traci Singh MD [address] [place], [place] [phone] documented as of this encounter Visit Diagnoses Diagnosis Psychophysiological insomnia Persistent disorder of initiating or maintaining sleep documented in this encounter Additional Health Concerns Assessment Noted Time PHQ-9 Depression Total Score: 9 11/04/19 23 2:36 PM EDT documented as of this encounter Care Teams Passenger Elevator Operator Relationship Specialty Start Date End Date Jamila Robledo MD [address] [place], [place] [phone] PCP - General Family Medicine 05/02/19 documented as of this encounter
--- OUTSIDE RECORDS SUMMARY | 2024-10-08 13:34 | XMS_ITS | Encounter Summary ---
Author Organization [employer] Address [address] [place] [address] 7t [place] [address] Care Team Providers Care Rail Car Repairer Name Role Phone Jamila Robledo MD Primary Care Provide r Reason for Visit * Reason Comments Med Refill Encounter Details Date Type Department Care Team ([facility] Contact Info) Description 11/28/2022 Refill [facility] MEDICINE [address] [place] [address] Jamila Robledo MD [address] [place] [address] Acute non-recurrent frontal sinusitis Social History Tobacco [...] Upcoming Encounters Date Type Department Care Team ([facility] Contact Info) Description 10/10/2024 1:30 PM EDT Office Visit [facility] MED[facility]INE 230 [place] [address] Traci Singh MD [address] [place] [address] documented as of this encounter Visit Diagnoses Diagnosis Acute non-recurrent frontal sinusitis documented in this encounter Additional Health Concerns Assessment Noted Time PHQ-9 Depression Total Score: 9 11/04/19 23 2:36 PM EDT documented as of this encounter Care Teams Rail Car Repairer Relationship Specialty Start Date End Date Jamila Robledo MD [address] [place] [address] PCP - General Family Medicine 05/02/19 documented as of this encounter
--- OUTSIDE RECORDS SUMMARY | 2024-10-08 13:34 | XMS_ITS | Encounter Summary ---
Author Organization [employer] Address [address] [facility] 7t [place] [address] Care Team Providers Care Process Control Technician Name Role Phone Jamila Robledo MD Primary Care Provide r Reason for Visit * Reason Onset Date Comments Nurse Triage 02/27/2024 Encounter Details Date Type Department Care Team ([facility] Contact Info) Description 02/27/2024 Telephone [facility] MEDICINE [address] [place], [place] [phone] Jamila Robledo MD 230 [place] [address] Nurse Triage Social History Tobacco Use Types [...] the past 12 months, has t he [employer], gas, oil or water [employer] threatened to shut off services in your [...] to check this. Advised to come to [facility] open till 8pm today and th, fri, 830a-4p. Pt agrees with this disposition and will come to [facility] probably in the morning. Insurance is [...] become worse * Telephone Encounter - Kaushal Babra - 02/27/2024 3:30 PM EDT TC from pt reports numbness of tip of index finger. Unsure if related to DX of diabetes. PT was prescribed metformin . documented in this encounter Plan of Treatment Upcoming Encounters Date Type Department Care Team (Late st Contact Info) Description 10/10/2024 1:30 PM EDT Office Visit [facility] MEDICINE [address] [place], [place] [phone] Traci Singh MD [address] [place] [address] documented as of this encounter Visit Diagnoses Not on filedocumented in this encounter Additional Health Concerns Assessment Noted Time PHQ-9 Depression Total Score: 0 02/06/20 24 2:56 PM EDT documented as of this encounter Care Teams Process Control Technician Relationship Specialty Start Date End Date Jamila Robledo MD [address] [place] [address] [phone] PCP - General Family Medicine 05/02/19 documented as of this encounter
--- OUTSIDE RECORDS SUMMARY | 2024-10-08 13:34 | XMS_ITS | Encounter Summary ---
Author Organization [employer] Address [address] [facility] [address] 7t [place] [address] Care Team Providers Care Truck Striker Name Role Phone Jamila Robledo MD Primary Care Provide r Encounter Details Date Type Department Care Team ([facility] Contact Info) Description 09/16/2024 Orders Only [facility] MED & PEDS [address] [place] [address] Provider, MD Armen Social History Tobacco Use [...] 1:30 PM EDT Office Visit [facility] MEDICINE 230 [place] [address] Traci Singh MD 230 [place] [address] documented as of this encounter Procedures Procedure [...] documented as of this encounter Care Teams Truck Striker Relationship Specialty Start Date End Date Jamila Robledo MD [address] [place] [address] PCP - General Family Medicine 05/02/19 documented as of this encounter
--- OUTSIDE RECORDS SUMMARY | 2024-10-08 13:34 | XMS_ITS | Encounter Summary ---
Author Organization [employer] Address [address] [facility] 7t [place] [address] Care Team Providers Care Strategic Accounts Manager Name Role Phone Jamila Robledo MD Primary Care Provide r Reason for Visit * Reason Comments Med Change Request Encounter Details Date Type Department Care Team ([facility] Contact Info) Description 07/17/2023 Refill [facility] 230 [place], [place] [phone] Ruth Costello FNP 230 [place] [address] Social History Tobacco Use Types Packs/Day Years [...] Description 10/10/2024 1:30 PM EDT Office Visit [facility] MEDICINE 230 [place] [address] Traci Singh MD 230 [place] [address] documented as of this encounter Visit Diagnoses Not on filedocumented in this encounter Additional Health Concerns Assessment Noted Time PHQ-9 Depression Total Score: 9 11/04/19 23 2:36 PM EDT documented as of this encounter Care Teams Strategic Accounts Manager Relationship Specialty Start Date End Date Jamila Robledo MD 230 [place] [address] PCP - General Family Medicine 05/02/19 documented as of this encounter
--- OUTSIDE RECORDS SUMMARY | 2024-10-08 13:34 | XMS_ITS | Encounter Summary ---
Author Organization [employer] Address [address] [facility] 7t [place] [address] Care Team Providers Care Oracle Data Warehouse Developer Name Role Phone Jamila Robledo MD Primary Care Provide r Reason for Visit * Reason Onset Date Comments Med Change Request 03/11/2024 Encounter Details Date Type Department Care Team ([facility] Contact Info) Description 03/11/2024 Telephone [facility] MEDICINE [address] [place] [address] Jamila Robledo MD [address] [place] [address] Med Change Request Social History Tobacco Use [...] t he electric, gas, oil or water [employer] threatened to shut off services in your [...] Description 10/10/2024 1:30 PM EDT Office Visit [facility] MEDICINE 230 [place] [address] Traci Singh MD 230 [place] [address] documented as of this encounter Visit Diagnoses Not on filedocumented in this encounter Additional Health Concerns Assessment Noted Time PHQ-9 Depression Total Score: 0 02/06/20 24 2:56 PM EDT documented as of this encounter Care Teams Oracle Data Warehouse Developer Relationship Specialty Start Date End Date Jamila Robledo MD 230 [place] [address] PCP - General Family Medicine 05/02/19 documented as of this encounter
--- OUTSIDE RECORDS SUMMARY | 2024-10-08 13:34 | XMS_ITS | Encounter Summary ---
Author Organization [employer] Address [address] [facility] 7t [place] [address] Care Team Providers Care Call Or Contact Centre Manager Name Role Phone Jamila Robledo MD Primary Care Provide r Encounter Details Date Type Department Care Team ([facility] Contact Info) Description 03/18/2024 Orders Only [facility] MEDICINE [address] [place], [place] [phone] Jamila Robledo MD 230 [place], [place] [phone] Social History Tobacco Use Types Packs/Day Years [...] Description 10/10/2024 1:30 PM EDT Office Visit [facility] MEDICINE 230 [place] [address] Traci Singh MD [address] [place] [address] documented as of this encounter Visit Diagnoses Not on filedocumented in this encounter Additional Health Concerns Assessment Noted Time PHQ-9 Depression Total Score: 0 02/06/20 24 2:56 PM EDT documented as of this encounter Care Teams Call Or Contact Centre Manager Relationship Specialty Start Date End Date Jamila Robledo MD 230 [place], [place] [phone] PCP - General Family Medicine 05/02/19 documented as of this encounter
--- OUTSIDE RECORDS SUMMARY | 2024-10-08 13:34 | XMS_ITS | Encounter Summary ---
Author Organization [employer] Address [address] [place] [address] [place] [address] Care Team Providers Care Cleaning Matron Name Role Phone Jamila Robledo MD Primary Care Provide r Reason for Visit * Reason Comments Med Refill Encounter Details Date Type Department Care Team (Late Contact Info) Description 01/19/2023 Refill [facility] MEDICINE [address] [place] [phone] Liza Matos FNP [address] [place] [address] Dept [place] [address] Psychophysiological insomnia Social History Tobacco Use Types [...] Description 10/10/2024 1:30 PM EDT Office Visit [facility] MEDICINE [address] [place] [address] [phone] Traci Singh MD 230 [place], [place] [phone] documented as of this encounter Visit Diagnoses Diagnosis Psychophysiological insomnia Persistent disorder of initiating or maintaining sleep documented in this encounter Additional Health Concerns Assessment Noted Time PHQ-9 Depression Total Score: 9 11/04/19 23 2:36 PM EDT documented as of this encounter Care Teams Cleaning Matron Relationship Specialty Start Date End Date Jamila Robledo MD [address] [place] [address] PCP - General Family Medicine 05/02/19 documented as of this encounter
== END 2024-10-08 11:37 | disposition home or self-care (01) ==
LOC: HO.HKA 11:14
PROVIDERS: PCP Internal Medicine; Referring Provider Internal Medicine; Visit Provider Internal Medicine Nephrology
DX: I10 Essential (primary) hypertension (principal); E87.6 Hypokalemia
CPT/HCPCS: 99204

== ENCOUNTER 2024-12-11 12:34 | Outpatient (AMB) | payer OTHER, SELFPAY ==
--- NOTE | 2024-12-11 12:43 | A.OFFVIS_ITS ---
Vital Signs 12/11/24 12:56 Height 5 ft 1 in Weight 190 lb BMI 35.9 BP 142/68 H Blood Pressure Location Lt brachial Position Sitting Pulse 97 Pulse Oximetry (%) 96 Oxygen Delivery Method Room Air Intake Visit Reasons: 4 mo f/u r/s 08/20/24 Intake Note: Patient follow up for Abdominal bloating and lab results. No fecal results. Patient cc: nauseas, abdominal pain, acid reflux on and off, and constipation come and go. Wick Tender Required: No Accompanied by: Self / Same As Patient Allergies famotidine (FAMOTIDINE) Allergy (Mild, Verified 12/11/24 12:42) HEADACHES ENVIRONMENTAL Allergy (Intermediate, Uncoded 08/18/24 12:49) NASAL CONGESTION Medication List - Last Reconciled 12/11/24 by Batsheva Rees MD acetaminophen (Tylenol Extra Strength) 1,000 mg (2 x 500 mg) PO QID PRN albuterol sulfate 90 mcg/actuation 2 puffs inhalation Q4-6H PRN baclofen mg PO 3XD cetirizine (Zyrtec) 10 mg PO DAILY PRN diltiazem HCl CD 120 mg PO DAILY hydrochlorothiazide mg PO DAILY hydrocortisone 2.5% 1 appl IA BID-QID PRN 30 days Lactobacillus rhamnosus GG (Culturelle) 1 cap PO DAILY 90 days lisinopril 5 mg PO QAM loratadine 10 mg PO DAILY PRN lorazepam 0.5 - 1 tabs PO TID PRN metoprolol succinate ER 12.5 mg PO DAILY montelukast 10 mg PO QPM naproxen 500 mg PO BID PRN omeprazole 20 mg PO DAILY 90 days ondansetron 4 mg PO Q8H PRN paroxetine HCl 10 mg PO DAILY semaglutide (weight loss) (Wegovy) mg subcut trazodone 50 mg PO BEDTIME HPI HPI 4 mo f/u r/s 08/20/24: Details: GI CLINIC VISIT FOR THIS 49-YEAR-OLD URUGUAYAN-SPEAKING FEMALE FOR FU OF CONSTIPATION, HEMORRHOIDS AND FATTY LIVER CHRONIC ILLNESSES: Asthma, DM, Hypertension, Sleep apnea, PUD, tachycardia ?TODAY'S VISIT Patient follow up for Abdominal bloating and lab results. No fecal results. Patient cc: nauseas, abdominal pain, acid reflux on and off, and constipation come and go. Diagnosed with uterine fibroids and referred to surgery Notes diarrhea alternating with constipation. PAST VISITS: Has soft stools - sometimes up to 10 BMs in a day and sometimes mucous. Denies association with diet - can be worse when she eats sauces Can notice blood (Due to hemorrhoids) when she poops a lot. Has a have a BM after she eats. Has constipation once a month Diagnosed with DM a month ago Complains of nausea after she eats or drinks anything. Has to have a BM when she eats or drinks. H Pylori was negative. Continues to have upto 10 BMs a day. Can have frequent gagging. Had the flu and an asthma attack on xmas soo Has been eating less and has gained weight. Notes more nausea associated with retching Has early satiety. If she drinks water or any food she has to run to the bathroom with urgency and loose bowel movements. Can have up to 10 loose BMs a day Diarrhea triggers the hemorrhoids and she notes rectal bleeding. Denies constipation. Notes bloating associated with abdominal distension in the afternoon. Has gained wt. Has to eat otherwise gets a PEREYRA. Has been having a lot of bloating in the stomach. Had to go to the ED due to nausea and vomiting - K was low. DC home on PO antibiotics. CT scan showed: 1. Minimal, vague fat stranding adjacent to the cecum where there is mild wall thickening, new when compared to the prior examination. Slightly more prominent adjacent subcentimeter mesenteric lymph nodes. Findings could represent mild colitis in the proper clinical setting. No evidence of perforation or abscess formation. Unremarkable adjacent appendix. ? 2. Hepatic steatosis. No new hepatic parenchymal lesion or biliary ductal dilatation. ? 3. Redemonstration of a fibroid uterus. Continunes to have intermittent rectal bleeding? comes and ago. Blood is red - initially pure blood and then with the stool. Usually has bleeding once a month and lasts for a day Denies rectal or anal pain. Has 4-5 BMs a day usually soft stools, rarely has constipation. PAST LABS: ?Unable to have labs done since she had a Family? Tragedy. ?Has been taking Omeprazole every morning with partial? improvement in abdominal pain. ?She is worried she may have an? ulcer ?Noted rectal bleeding 1.5 months ago -? stopped after 2 days. ?Complains of sharp upper abdominal pain for the? past few yrs. ?Pain is intermittent and is precipitated by? food. ?Pain is accompanied by nausea and takes Zantac twice a day and? pain resolves. ?Also has a lot of heartburn. ?Takes Zantac? before she eats. ?Takes Peptobismol prn for abdominal? pain. ?Also notes abdominal bloating ?Tried Prilosec and it? did not work for her ?Denies dysphagia, vomiting, change in? appetite. ?Has constipation (twice a month) alternating with diarrhea? (a few times a month). ?Patient denies black stools. ?Her? weight fluctuates. ?When she has rectal bleeding which is mixed and? separate from the stools. ?Pt is asthmatic, sinus problems and? allergies. ?She believes she may have sleep apnea She denies? problems with anesthesia in the past other than she was very sleepy? afterwards. ?For patient she was hospitalized at [facility] for a day a year? ago for rectal bleeding. ?Did not have Endoscopic? evaluation. ?She was unable to stay since she has a disabled son at? home. ?FAMILY HISTORY:?Dad had 13 surgeries on his stomach and? eventually of Gastric cancer at age 39 yrs ?Denies known of colon? cancer. ?Aunt had liver cancer ENDOSCOPIC STUDIES:? 01/2020 EGD AND COLONOSCOPY SHOWED: Endoscopy Findings: STOMACH: Gastritis DUODENUM: Normal - biopsied to check for celiac sprue Colonoscopy Findings: One diminutive polyps removed Moderate diverticulosis seen in the sigmoid colon Moderate hemorrhoids on retroflexed exam. Plan: Await pathology results Continue present medications. Patient has an appointment on 02/13/20 in the GI Clinic with Batsheva Rees M.D.- Repeat Colonoscopy interval based on path results - in 3-5 years if polyps are adenomatous and 10 years if polyps are hyperplastic. BIOPSIES SHOWED: A.? Small bowel, biopsies:? Small bowel mucosa within normal limits; no villous abnormality identified; no increase in intraepithelial lymphocytes. B.? Stomach, antrum, biopsies:? Gastric mucosa with moderate active gastritis; positive for Helicobacter pylori organisms consistent with H. pylori gastritis; negative for intestinal metaplasia/dysplasia. C.? Stomach, body, biopsies:? Gastric mucosa with moderate active gastritis; positive for Helicobacter pylori organisms consistent with H. pylori gastritis; negative for intestinal metaplasia/dysplasia. D.? Colon, random, biopsies:? Colonic mucosa within normal limits; no evidence of microscopic colitis. E.? Rectum, polyp, polypectomy:? Fragments of hyperplastic polyp [facility] Medical History (Updated 10/08/24 @ 11:29 by Rufino Guerrero MD) Urinary incontinence, mixed Nasal polyps Abnormal vaginal bleeding Trochanteric bursitis of right hip Right hip pain Prediabetes Hypokalemia Chronic maxillary sinusitis Epigastric pain Chronic pansinusitis Vascular insufficiency Acute non-recurrent frontal sinusitis Rash Callus of foot Allergic rhinitis Bacterial sinusitis Colitis Cramp in limb Decreased thyroid stimulating hormone level Excessive and frequent menstruation Hemorrhoids Pain in finger Concetta-menopause Skin tag Cough Snoring Essential (primary) hypertension Bleeding hemorrhoids Chronic back pain Sleep apnea Depression GERD (gastroesophageal reflux disease) Anxiety Hypertension Asthma Tachycardia Surgical History Tubal ligation status H/O hand surgery Hx of foot surgery History of esophagogastroduodenoscopy (EGD) H/O colonoscopy Family History Father Stomach cancer Social History Household Members: Family Alcohol intake: never Patient Tobacco Use Status: Current everyday Tobacco user Tobacco use type: Cigarette Cigarettes Per Day: 10 Years Smoked: 40 Review of Systems Const All systems reviewed & are unremarkable except as noted in HPI and below Physical Exam Vital Signs: Last Vital Signs Pulse 97 12/11/24 12:56 BP 142/68 H 12/11/24 12:56 Pulse Ox 96 12/11/24 12:56 Oxygen Delivery Method Room Air 12/11/24 12:56 BMI result Body Mass Index 35.9 Const General: healthy appearing and no acute distress Nutritional Appearance: obese Orientation/consciousness: patient oriented x3 Limitations: no limitations HEENT Head: Yes normal to inspection Ears: hearing grossly normal bilaterally Eyes Sclerae: sclerae normal Pupils: Equal, round and reactive pupils present Neck Neck: Yes normal visual inspection Chest Chest palpation & inspection: normal inspection of the chest Resp Effort & Inspection: normal respiratory effort Auscultation: clear to auscultation bilaterally Cardio Palpation: normal PMI Rate: regular rate Rhythm: regular rhythm Heart sounds: S1 normal heart sound present, S2 normal heart sound present and no murmurs GI Palpation (GI): Soft to palpation, nontender and No hepatosplenomegaly present Auscultation: normal bowel sounds Rectal Exam - Female: deferred Skin General skin exam: no rashes or lesions noted Neuro General: patient oriented x3, gait normal and moves all extremities Cranial nerves: Yes Equal, round and reactive pupils present Psych Appearance: grossly normal Mental Status: mental status grossly normal Assessment & Plan Assessment & Plan (1) GERD (gastroesophageal reflux disease): Code(s): K21.9 - Gastro-esophageal reflux disease without esophagitis Category: Medical (2) Colon cancer screening: Comment: 08/2022 A 10 mm tubular adenoma was removed from the AC - FU colon advised in 3 years (08/2025) Code(s): Z12.11 - Encounter for screening for malignant neoplasm of colon Category: Medical (3) Abdominal bloating: Code(s): R14.0 - Abdominal distension (gaseous) Category: Medical (4) Rectal bleeding: Code(s): K62.5 - Hemorrhage of anus and rectum Category: Medical (5) Chronic diarrhea: Code(s): K52.9 - Noninfective gastroenteritis and colitis, unspecified Category: Medical (6) Elevated LFTs: Code(s): R79.89 - Other specified abnormal findings of blood chemistry Category: Medical Plan 49 YF with heartburn, upper abdominal pain with bloating, nausea, diarrhea? alternating with constipation. Her symptoms are suggestive of GERD and IBS? (mixed). Patient also gives a history of intermittent episodes of self-limited rectal bleeding. Patient was advised to continue famotidine twice daily in? place of Zantac for heartburn and epigastric pain. She was advised to take a? fiber supplement to help regulate her bowel movement. 01/2020 Pt had an EGD and colonoscopy - findings as noted above. Repeat EGD in 01/2023 due to positive FH of gastric cancer in her Dad at age 39 yrs. Patient was advised to check labs and H Pylori breath test and start taking a probiotic for bloating. (She was prescribed Culturelle) 08/2022 EGD and a Colonoscopy were performed and findings as noted 04/03/24 nausea and chronic diarrhea Check stool studies and labs to rule out IBD/pancreatic insufficiency 12/11/24 Pt has not completed stool studies - states she forgot Advised to submit stool test. IBD serologies positive for UC Pt is due for colonoscopy for FU of polyps in 08/2025. If fecal calprotectin is elevated, I will schedule a colonoscopy this year Of note pt reports she had to be intubated for her previous colon FU in 3 months Orders: Orders Calprotectin, Fecal Today K52.9 - Noninfective gastroenteritis and colitis, unspecified Pancreatic Elastase-1 Today K52.9 - Noninfective gastroenteritis and colitis, unspecified Coding Level of Care Code Est Pt Level 3 (35469) Diagnoses GERD (gastroesophageal reflux disease) K21.9 Colon cancer screening Z12.11 Abdominal bloating R14.0 Rectal bleeding K62.5 Chronic diarrhea K52.9 Elevated LFTs R79.89 Time Spent (min) 15
[2024-12-11 12:56] VITALS: BP 142/68; PULSE 97; O2SAT 96; BMI 35.9
--- OUTSIDE RECORDS SUMMARY | 2024-12-11 14:53 | XMS_ITS | Encounter Summary ---
Author Organization [employer] Address [address] [facility] [address] [place] [address] Care Team Providers Care Diamond Die Driller Name Role Phone Jamila Robledo MD Primary Care Provide r Reason for Visit * Reason Comments Med Refill Encounter Details Date Type Department Care Team ([facility] st Contact Info) Description 08/18/2024 Refill C [facility] [address] [place], [place] [phone] Jamila Robledo MD [address] [place] [address] Acute non-recurrent frontal sinusitis Social History Tobacco Use Types Packs/Day Years Used Date Smoking Tobacco: Every Day Cigarettes 0.3 1.5 Started: 2023 Passive Smoke Exposure: Current Smokeless [...] as of this encounter Plan of Treatment Not on file documented as of this encounter Visit Diagnoses Diagnosis Acute non-recurrent frontal sinusitis documented in this encounter Additional Health Concerns Assessment Noted Time PHQ-9 Depression Total Score: 0 02/06/20 24 2:56 PM EDT documented as of this encounter Care Teams Diamond Die Driller Relationship Specialty Start Date End Date Jamila Robledo MD [address] [place] [id number] PCP - General Family Medicine 05/02/19 documented as of this encounter
== END 2024-12-11 13:27 | disposition home or self-care (01) ==
LOC: HO.HGI 12:34
PROVIDERS: PCP Internal Medicine; Visit Provider Internal Medicine Gastroenterology
DX: K21.9 Gastro-esophageal reflux disease without esophagitis (principal); R14.0 Abdominal distension (gaseous); K62.5 Hemorrhage of anus and rectum; K52.9 Noninfective gastroenteritis and colitis, unspecified; R79.89 Other specified abnormal findings of blood chemistry
CPT/HCPCS: 99213

== ENCOUNTER → 2024-12-11 12:34 | Outpatient (BNVA) | payer OTHER, SELFPAY | PROVIDERS: PCP Internal Medicine; Visit Provider Internal Medicine Gastroenterology | DX: Z12.11 Encounter for screening for malignant neoplasm of colon (principal); K21.9 Gastro-esophageal reflux disease without esophagitis; R14.0 Abdominal distension (gaseous); K62.5 Hemorrhage of anus and rectum; K52.9 Noninfective gastroenteritis and colitis, unspecified; R79.89 Other specified abnormal findings of blood chemistry | CPT/HCPCS: 99212 ==

== ENCOUNTER 2025-01-20 12:02 | Outpatient (REF) | payer OTHER, SELFPAY ==
--- NOTE | ~2025-01-20 | US_ITS ---
EXAMINATIONS: 1. MM DIAGNOSTIC DIGITAL BREAST TOMOSYNTHESIS, BILATERAL 2. Targeted ultrasound of right breast 3. Targeted ultrasound of the left breast CLINICAL INFORMATION: Bilateral breast pain. COMPARISON: Comparison made to multiple prior, most recent May 01, 2022, and most remote left mammogram on August 28, 2018. TECHNIQUE: Digital breast tomosynthesis is performed in both the craniocaudal and mediolateral oblique views along with computer-aided detection (CAD). Synthesized 2D images are generated from the tomosynthesis. Triangular skin marker was placed at the location of the pain into breast. FINDINGS: BREAST COMPOSITION: There are scattered areas of fibroglandular density (ACR BI-RADS breast composition Category b). RIGHT BREAST: No significant masses, suspicious calcifications or other abnormalities are seen. In particular, no abnormalities adjacent to the triangular skin marker. Targeted ultrasound of the right breast was performed at the location of the pain as indicated by the patient along the 2:00-4:00 axis. Survey did not reveal suspicious findings. LEFT BREAST: No significant masses, suspicious calcifications or other abnormalities are seen. In particular, no abnormalities adjacent to the triangular skin marker. Targeted ultrasound of the left breast was performed at the location of the pain as indicated by the patient along the 8:00-10:00 axis. Survey did not reveal suspicious findings. US/US breast BI limited mamm only IMPRESSION: RIGHT BREAST: Negative, no evidence of malignancy. Clinical follow-up is recommended for the concern of focal pain. Otherwise, normal interval follow-up mammogram is recommended in 12 months. LEFT BREAST: Negative, no evidence of malignancy. Clinical follow-up is recommended for the concern of focal pain. Otherwise, normal interval follow-up mammogram is recommended in 12 months. ASSESSMENT: BI-RADS 2 - Benign Findings RECOMMENDATION: 1. Patient should be managed based on the clinical impression. 2. Otherwise, routine annual screening mammography. Results were provided to the patient at time of visit by the technologist. This patient's information was entered into a reminder system with a target due date for their next mammogram. Electronically signed by: Rene Felder MD 01/20/2025 01:13 PM EDT Workstation: [id number]
--- OUTSIDE RECORDS SUMMARY | 2025-01-20 12:50 | XMS_ITS ---
Author Name [facility] Organization Unknown Care Team Organization Name Specialty Phone Email Start Date End [facility]
--- OUTSIDE RECORDS SUMMARY | 2025-01-20 12:50 | XMS_ITS | Encounter Summary ---
Author Organization [employer] Address [address] [facility] [address] [place] [address] Care Team Providers Care Check Processor Name Role Phone Jamila Robledo MD Primary Care Provide r Reason for Visit * Reason Comments Med Refill Encounter Details Date Type Department Care Team ([facility] st Contact Info) Description 08/18/2024 Refill C [facility] [address] [place], [place] [phone] Jamila Robledo MD [address] [place] [address] Acute non-recurrent frontal sinusitis Social History Tobacco Use Types Packs/Day Years Used Date Smoking Tobacco: Every Day Cigarettes 0.3 1.6 Started: 2023 Passive Smoke Exposure: Current Smokeless [...] documented as of this encounter Care Teams Check Processor Relationship Specialty Start Date End Date Jamila Robledo MD [address] [place] [id number] PCP - General Family Medicine 05/02/19 documented as of this encounter
== END 2025-01-20 12:03 | disposition home or self-care (01) ==
LOC: HO.MAMMO 12:02
PROVIDERS: PCP Internal Medicine; Visit Provider Internal Medicine
DX: N64.4 Mastodynia (principal)
CPT/HCPCS: 76642; 77062; 77066

== ENCOUNTER → 2025-01-20 12:06 | Outpatient (BNV) | payer OTHER, SELFPAY | PROVIDERS: PCP Internal Medicine; Visit Provider Radiology Body Imaging | DX: N64.4 Mastodynia (principal) | CPT/HCPCS: 76642; 77066; G0279 ==

== ENCOUNTER 2025-02-18 11:52 | Outpatient (AMB) | payer OTHER, SELFPAY ==
--- OUTSIDE RECORDS SUMMARY | 2025-02-13 14:00 | XMS_ITS | Encounter Summary ---
Author Organization [employer] Address [address] [place] [address] 7[address] [place] [address] Care Team Providers Care Branch Service Representative Name Role Phone Jamila Robledo MD Primary Care Provide r Reason for Referral * Consultation (Routine) - Closed Specialty Diagnoses / Procedures Referred By Contac t Referred To Contact Physical Therapy Diagnoses Mid back pain on right side Acute right-sided low back pain without sciatica Right hip pain Jamila Robledo MD [address] [place] [address] Phone: tel: fax: Physical Therapy, [facility] [address] [place], [place] Phone: tel: fax: Referral ID Status Reason Start Date Expiration Date V isits Requested Visits Authorized [id number] Closed Specialty Services Required 02/13/2025 02/13/2026 1 1 * Medications - Closed Specialty Diagnoses / Procedures Referred By Contac t Referred To Contact Diagnoses Muscle spasm Mid back pain on right side Acute right-sided low back pain without sciatica Right hip pain Jamila Robledo MD [address] [place] [address] Phone: tel: fax: Referral ID Status Reason Start Date Expiration Date Visits Re quested Visits Authorized [id number] Closed 1 1 Reason for Visit * Reason Comments Cough Encounter Details Date Type Department Care Team (Late st Contact Info) Description 02/13/2025 2:00 PM EDT Office Visit [facility] [address] [place] [address] Jamila Robledo MD [address] [place] [address] Muscle spasm (Primary Dx); Cough in adult patient; Mid back pain on right side; Acute right-sided low back pain without sciatica; Right hip pain; Chronic pansinusitis Social History Tobacco Use Types Packs/Day Years Used Date Smoking Tobacco: Every Day Cigarettes 0.3 1.7 Started: 2023 Passive Smoke Exposure: Current Smokeless [...] Answer Date Recorded Patient Health Questionnaire-9 Score 24 12/31/2024 Patient Health Questionnaire-9 Score 24 12/31/2024 Last PHQ-9: Questionnaire Data Not on file 0 12/31/2024 Housing Stability Answer Date Recorded What is your housing situation today? I have baylisa castelan 04/06/[address] you [...] Answer Date Recorded Patient Health Questionnaire-2 Score 6 12/31/2024 Comments No Sex and Gender Information Value Date Recorded Sex Assigned at Female 04/17/2022 10:14 AM EDT Legal Sex Female 10:14 AM EDT Gender Identity Female 04/17/2022 10:14 AM EDT Sexual Orientation Straight 04/17/2022 10 :14 AM EDT documented as of this encounter Last Filed Vital Signs Vital Sign Reading Time Taken Comments Blood Pressure 128/85 02/13/2025 1:41 PM EDT Pulse 90 02/13/2025 1:41 PM EDT Temperature 36.8 C (98.2 F) 02/13/2025 1:41 PM EDT Respiratory Rate 18 02/13/2025 1:41 PM EDT Oxygen Saturation 96% 02/13/2025 1:41 PM EDT Inhaled Oxygen Concentration - - Weight 83.9 kg (185 lb) 02/13/2025 1:41 PM EDT Height - - Body Mass Index 32.77 09/15/2024 11:15 AM EDT documented in this encounter Progress Notes * Jamila Beebe MD - 02/13/2025 2:00 PM EDT SUBJECTIVE: Rohini Conner is a 49 y.o. year old female who presents for acute visit . Acute Concerns: Patient reports that on February 05, 2025 she was at her rash when she suddenly slipped she did not fell but she stretch her lower back mid back and right hip with sudden movement since then she has been having pain in these areas she has been trying with Tylenol but pain is persistent Patient today also complaining of nasal congestion and discharge, she suffers from chronic sinusitis, she is being followed by ENT. Provider recently retired and is requesting for antibiotics Social History Social History Narrative Not on file Problem List[1] Essential hypertension Supraventricular tachycardia (CMS/HCC) Snoring Cough Skin tag Concetta-menopause Pain in finger Obesity (BMI 30-39.9) Hemorrhoids Gastroesophageal reflux disease Excessive and frequent menstruation Decreased thyroid stimulating hormone level Cramp in limb Colitis Bacterial sinusitis Asthma MERRY (generalized anxiety disorder) Allergic rhinitis Callus of foot Rash Acute non-recurrent frontal sinusitis Vascular insufficiency Chronic pansinusitis Epigastric pain Chronic maxillary sinusitis Obesity (BMI 35.0-39.9 without comorbidity) Hypokalemia Prediabetes Right hip pain Trochanteric bursitis of right hip Abnormal vaginal bleeding Nasal polyps Screening mammogram for breast cancer Urinary incontinence, mixed MDD (major depressive disorder), recurrent episode, moderate (CMS/HCC) Muscle spasm Mid back pain on right side Acute right-sided low back pain without sciatica Family History[2] Review of Systems Constitutional: Negative. HENT: Positive for congestion, postnasal drip, rhinorrhea, sinus pressure and sinus pain. Negative for dental problem, drooling, ear discharge, ear pain, facial swelling, hearing loss, mouth sores, nosebleeds, sneezing, sore throat, tinnitus, trouble swallowing and voice change. Respiratory: Negative. Cardiovascular: Negative. Musculoskeletal: Positive for arthralgias and myalgias. OBJECTIVE: Vitals: 02/13/25 1341 BP: 128/85 BP Location: Right arm Patient Position: Sitting BP Cuff Size: Large adult Pulse: 90 Resp: 18 Temp: 98.2 ??F (36.8 ??C) TempSrc: Temporal SpO2: 96% Weight: 185 lb (83.9 kg) Physical Exam Constitutional: Appearance: Normal appearance. Cardiovascular: Rate and Rhythm: Normal rate and regular rhythm. Pulmonary: Effort: Pulmonary effort is normal. Breath sounds: Normal breath sounds. Abdominal: General: Abdomen is flat. Palpations: Abdomen is soft. Musculoskeletal: Thoracic back: Spasms and tenderness present. Lumbar back: Spasms and tenderness present. Right lower leg: No edema. Left lower leg: No edema. Neurological: Mental Status: She is alert. Follow Up: No follow-ups on file. Medications Ordered Prior to Encounter[3] Problem List Items Addressed This Visit Muscle spasm - Primary Heat on affected area Flexeril 10 mg every 8 hours prescribed she is aware of side effects somnolence she cannot drive ordo activities that requires her attention while taking this medication I will also prescribe lidocaine patch 1 daily She may continue to take acetaminophen as needed I refer her to physical therapy Relevant Medications cyclobenzaprine (Flexeril) 10 MG tablet lidocaine (Lidoderm) 5 % patch Mid back pain on right side Heat on affected area Flexeril 10 mg every 8 hours prescribed she is aware of side effects somnolence she cannot drive ordo activities that requires her attention while taking this medication I will also prescribe lidocaine patch 1 daily She may continue to take acetaminophen as needed I refer her to physical therapy Relevant Medications cyclobenzaprine (Flexeril) 10 MG tablet lidocaine (Lidoderm) 5 % patch Other Relevant Orders Referral to Physical Therapy Acute right-sided low back pain without sciatica Heat on affected area Flexeril 10 mg every 8 hours prescribed she is aware of side effects somnolence she cannot drive ordo activities that requires her attention while taking this medication I will also prescribe lidocaine patch 1 daily She may continue to take acetaminophen as needed I refer her to physical therapy Relevant Medications cyclobenzaprine (Flexeril) 10 MG tablet lidocaine (Lidoderm) 5 % patch Other Relevant Orders Referral to Physical Therapy Right hip pain Heat on affected area Flexeril 10 mg every 8 hours prescribed she is aware of side effects somnolence she cannot drive ordo activities that requires her attention while taking this medication I will also prescribe lidocaine patch 1 daily She may continue to take acetaminophen as needed I refer her to physical therapy Relevant Medications cyclobenzaprine (Flexeril) 10 MG tablet lidocaine (Lidoderm) 5 % patch Other Relevant Orders Referral to Physical Therapy Chronic pansinusitis Relevant Medications azithromycin (Zithromax) 250 MG tablet Other Visit Diagnoses Cough in adult patient Relevant Orders Influenza A (ID NOW Rapid Molecular) (Completed) Influenza B (ID NOW Rapid Molecular) (Completed) POCT Rapid COVID Ag (Completed) [1] Patient Active Problem List Diagnosis Essential hypertension Supraventricular tachycardia (CMS/HCC) Snoring Cough Skin tag Concetta-menopause Pain in finger Obesity (BMI 30-39.9) Hemorrhoids Gastroesophageal reflux disease Excessive and frequent menstruation Decreased thyroid stimulating hormone level Cramp in limb Colitis Bacterial sinusitis Asthma MERRY (generalized anxiety disorder) Allergic rhinitis Callus of foot Rash Acute non-recurrent frontal sinusitis Vascular insufficiency Chronic pansinusitis Epigastric pain Chronic maxillary sinusitis Obesity (BMI 35.0-39.9 without comorbidity) Hypokalemia Prediabetes Right hip pain Trochanteric bursitis of right hip Abnormal vaginal bleeding Nasal polyps Screening mammogram for breast cancer Urinary incontinence, mixed MDD (major depressive disorder), recurrent episode, moderate (CMS/HCC) Muscle spasm Mid back pain on right side Acute right-sided low back pain without sciatica [2] Family History Problem Relation Name Age of Onset Diabetes Mother Hypertension Mother [3] Current Outpatient Medications on File Prior to [...] 90 tablet 0 Blood Glucose Monitoring Suppl (M[employer]osa SystemsStyle Hobucken Lite) w/Device kit Use to test blood [...] NOSTRIL EVERY DAY NEEDED 32 mL 2 fluticasone furoate (Arnuity Ellipta) 200 MCG/ACT inhaler TAKE 1 PUFF BY MOUTH ONCE A DAY 30 each 3 FreeStyle lancets USE TO TEST BLOOD SUGAR 2 TIMES DAILY 100 each 11 FREESTYLE LITE test strip Use to test blood sugar 2 times daily 100 each 12 hydroCHLOROthiazide (HYDRODiuril) 25 MG tablet Take 1 tablet (25 mg) by mouth Once per day. 90 tablet 3 lisinopril 10 MG tablet TAKE 1 TABLET BY MOUTH EVERY DAY IN THE MORNING 90 tablet 1 LORazepam (Ativan) 1 MG tablet TAKE 1/2 TO 1 TABLET BY MOUTH 3 TIMES DAILY NEEDED. 15 tablet 0 medroxyPROGESTERone (Provera) 5 MG tablet Take 1 tablet (5 mg) by mouth 3 times daily for 5 days. 15 tablet 0 metoprolol succinate XL (Toprol-XL) [...] (pain and swelling). 30 g 2 [DISCONTINUED] hydroCHLOROthiazide (HYDRODiuril) 25 MG tablet TAKE 1 TABLET (25 MG) BY MOUTH ONCE PER DAY. 90 tablet 3 No current facility-administered medications on file prior to visit. documented in this encounter Miscellaneous Notes * Assessment & Plan Note - Jamila Beebe MD - 02/13/2025 3:29 PM EDT Associated Problem(s): Right hip pain Heat on affected area Flexeril 10 mg every 8 hours prescribed she is aware of side effects somnolence she cannot drive ordo activities that requires her attention while taking this medication I will also prescribe lidocaine patch 1 daily She may continue to take acetaminophen as needed I refer her to physical therapy * Assessment & Plan Note - Jamila Beebe MD - 02/13/2025 3:29 PM EDT Associated Problem(s): Muscle spasm Heat on affected area Flexeril 10 mg every 8 hours prescribed she is aware of side effects somnolence she cannot drive ordo activities that requires her attention while taking this medication I will also prescribe lidocaine patch 1 daily She may continue to take acetaminophen as needed I refer her to physical therapy * Assessment & Plan Note - Jamila Beebe MD - 02/13/2025 3:29 PM EDT Associated Problem(s): Mid back pain on right side Heat on affected area Flexeril 10 mg every 8 hours prescribed she is aware of side effects somnolence she cannot drive ordo activities that requires her attention while taking this medication I will also prescribe lidocaine patch 1 daily She may continue to take acetaminophen as needed I refer her to physical therapy * Assessment & Plan Note - Jamila Beebe MD - 02/13/2025 3:29 PM EDT Associated Problem(s): Acute right-sided low back pain without sciatica Heat on affected area Flexeril 10 mg every 8 hours prescribed she is aware of side effects somnolence she cannot drive ordo activities that requires her attention while taking this medication I will also prescribe lidocaine patch 1 daily She may continue to take acetaminophen as needed I refer her to physical therapy documented in this encounter Plan of Treatment Scheduled Referrals Name Type Priority Associated Diagnoses Orde r Schedule Referral to Physical Therapy Outpatient Referral Routine Mid back pain on right side Acute right-sided low back pain without sciatica Right hip pain Expected: 02/13/2025 (Approximate), Expires: 02/13/2026 documented as of this encounter Procedures Procedure Name Priority Date/Time Associated Diagnosis Comments POCT INFLUENZA B (ID NOW RAPID MOLECULAR) Routine 02/13/2025 1:56 PM EDT Cough in adult patient POCT INFLUENZA A (ID NOW RAPID MOLECULAR) Routine 02/13/2025 1:56 PM EDT Cough in adult patient POCT RAPID COVID ANTIGEN Routine 02/13/2025 1:44 PM EDT Cough in adult patient documented in this encounter Results * Influenza B (ID NOW Rapid Molecular) (02/13/2025 1:56 PM EDT) [facility] Influenza B Negative Negative, Indeterminate [facility] Swab 02/13/2025 1:56 PM EDT us Jamila Beebe MD POINT OF CARE TEST EN TER/EDIT ORDERABLES Final Result Performing Organization Address City/[facility]/ZIP Co de Phone Number [facility] [address] [place] [phone] * Influenza A (ID NOW Rapid Molecular) (02/13/2025 1:56 PM EDT) [facility] Influenza A Negative Negative, Indeterminate [facility] Swab 02/13/2025 1:56 PM EDT us Jamila Beebe MD POINT OF CARE TEST EN TER/EDIT ORDERABLES Final Result Performing Organization Address [facility]/ZIP Co de Phone Number [facility] [address] [place] [phone] * POCT Rapid COVID Ag (02/13/2025 1:44 PM EDT) [facility] Rapid COVID Ag Negative Swab 02/13/2025 1:44 PM EDT Jamila Beebe MD POINT OF CARE TEST EN TER/EDIT ORDERABLES Final Result documented in this encounter Visit Diagnoses Diagnosis Muscle spasm- Primary Spasm of muscle Cough in adult patient Mid back pain on right side Acute right-sided low back pain without sciatica Right hip pain Pain in joint, pelvic region and thigh Chronic pansinusitis Other chronic sinusitis documented in this encounter Additional Health Concerns Assessment Noted Time PHQ-9 Depression Total Score: 24 025 3:36 PM EDT documented as of this encounter Care Teams Branch Service Representative Relationship Specialty Start Date End Date Jamila Robledo MD [address] [place] [phone] PCP - General Family Medicine 05/02/19 documented as of this encounter
[2025-02-18 11:53] VITALS: BMI 35.9
--- NOTE | 2025-02-18 11:53 | A.OFFVIS_ITS ---
Vital Signs 02/18/25 11:53 Height 5 ft 1 in Weight 190 lb BMI 35.9 Intake Visit Reasons: Breast Check Returned Case Inspector Required: No Information Interpreted: non-clinical & clinical Supervisor Capacitor Processing: Supervisor Capacitor Processing Present (Kaleigh DALEY) Accompanied by: Self / Same As Patient Allergies famotidine (FAMOTIDINE) Allergy (Mild, Verified 02/18/25 11:58) HEADACHES ENVIRONMENTAL Allergy (Intermediate, Uncoded 02/18/25 11:58) NASAL CONGESTION HPI Comments Details: Presenting for follow-up bilateral breast check. The patient states that her breast pain has resolved completely and no breast lump felt 01/20/2025 bilateral diagnostic mammogram and breast ultrasound BI-RADS 2 [facility] Medical History (Updated 02/18/25 @ 12:03 by Margarito Benoit MD) Urinary incontinence, mixed Nasal polyps Abnormal vaginal bleeding Trochanteric bursitis of right hip Right hip pain Prediabetes Hypokalemia Chronic maxillary sinusitis Epigastric pain Chronic pansinusitis Vascular insufficiency Acute non-recurrent frontal sinusitis Rash Callus of foot Allergic rhinitis Bacterial sinusitis Colitis Cramp in limb Decreased thyroid stimulating hormone level Excessive and frequent menstruation Hemorrhoids Pain in finger Concetta-menopause Skin tag Cough Snoring Essential (primary) hypertension Bleeding hemorrhoids Chronic back pain Sleep apnea Depression GERD (gastroesophageal reflux disease) Anxiety Hypertension Asthma Tachycardia Surgical History Tubal ligation status H/O hand surgery Hx of foot surgery History of esophagogastroduodenoscopy (EGD) H/O colonoscopy Family History Father Stomach cancer Social History Household Members: Family Alcohol intake: never Patient Tobacco Use Status: Current everyday Tobacco user Tobacco use type: Cigarette Cigarettes Per Day: 10 Years Smoked: 40 Physical Exam Vital Signs: BMI result Body Mass Index 35.9 Chest Chest palpation & inspection: normal inspection of the chest and normal palpation of entire chest wall Breast/axilla inspection: normal inspection of the breasts and normal inspection of the axillae Breast/axilla palpation: normal palpation of the breasts and normal palpation of the axillae Assessment & Plan Assessment & Plan (1) Breast pain: Comment: Results Code(s): N64.4 - Mastodynia Category: Medical Plan: Discussed with the patient the results of bilateral diagnostic mammogram ultrasound and physical exam. Instructions given the patient to call in case of recurrence of her pain or if any lump is felt. All questions answered, the patient verbalized understanding Coding Level of Care Code Est Pt Level 3 (16044) Diagnoses Breast pain N64.4
--- OUTSIDE RECORDS SUMMARY | 2025-02-18 14:27 | XMS_ITS | Continuity of Care Document ---
Author Name [employer] Address [address] [place] [address] Organization Unknown Address [address] [place] [address] Medications No known medications Problems No known problems
--- OUTSIDE RECORDS SUMMARY | 2025-02-18 14:27 | XMS_ITS | Encounter Summary ---
Author Organization [employer] Address [address] [facility] 7t [place] [address] Care Team Providers Care Architecture Professor Name Role Phone Jamila Robledo MD Primary Care Provide r Reason for Visit * Reason Comments Med Change Request Encounter Details Date Type Department Care Team ([facility] Contact Info) Description 12/01/2024 Refill [facility] [address] [place] [address] Jamila Robledo MD [address] [place] [address] Social History Tobacco Use Types Packs/Day Years [...] Answer Date Recorded Patient Health Questionnaire-9 Score 14 10/28/2024 Patient Health Questionnaire-9 Score 14 10/28/2024 Last PHQ-9: Questionnaire Data Not on file 0 10/28/2024 Housing Stability Answer Date Recorded What is [...] Date Recorded Patient Health Questionnaire-2 Score 6 10/28/2024 Comments No Sex and Gender Information Value [...] Assessment Noted Time PHQ-9 Depression Total Score: 14 025 4:20 PM EDT documented as of this encounter Care Teams Architecture Professor Relationship Specialty Start Date End Date Jamila Robledo MD [address] [place] [address] PCP - General Family Medicine 05/02/19 documented as of this encounter
--- OUTSIDE RECORDS SUMMARY | 2025-02-18 14:27 | XMS_ITS | Encounter Summary ---
Author Organization [employer] Address [address] [facility] 7t [place] [address] Care Team Providers Care Director Of Instruction Name Role Phone Jamila Robledo MD Primary Care Provide r Reason for Visit * Reason Comments Med Refill Encounter Details Date Type Department Care Team ([facility] st Contact Info) Description 08/08/2023 Refill [facility] [address] [place], [place] [phone] Jamila Robledo MD [address] [place], [place] [phone] Psychophysiological insomnia Social History Tobacco Use Types [...] as of this encounter Care Teams Director Of Instruction Relationship Specialty Start Date End Date Jamila Robledo MD [address] [place] [phone] PCP - General Family Medicine 05/02/19 documented as of this encounter
--- OUTSIDE RECORDS SUMMARY | 2025-02-18 14:27 | XMS_ITS | Encounter Summary ---
Author Organization [employer] Address [address] [facility] 7t [place] [address] Care Team Providers Care Bus Aide Name Role Phone Jamila Robledo MD Primary Care Provide r Encounter Details Date Type Department Care Team ([facility] Contact Info) Description 03/18/2024 Orders Only [facility] [address] [place], [place] [phone] Jamila Robledo MD [address] [place] [address] Social History Tobacco Use Types Packs/Day Years [...] documented as of this encounter Care Teams Bus Aide Relationship Specialty Start Date End Date Jamila Robledo MD [address] [place] [address] PCP - General Family Medicine 05/02/19 documented as of this encounter
--- OUTSIDE RECORDS SUMMARY | 2025-02-18 14:27 | XMS_ITS | Encounter Summary ---
Author Organization [employer] Address [address] [facility] 7t [place] [address] Care Team Providers Care Career Services Coordinator Name Role Phone Jamila Robledo MD Primary Care Provide r Reason for Visit * Reason Comments Med Change Request Encounter Details Date Type Department Care Team ([facility] Contact Info) Description 06/28/2023 Refill [facility] [address] [place], [place] [phone] Ruth Costello FNP [address] [place] [address] Upper back pain on left side Social [...] documented as of this encounter Care Teams Career Services Coordinator Relationship Specialty Start Date End Date Jamila Robledo MD [address] [place] [phone] PCP - General Family Medicine 05/02/19 documented as of this encounter
--- OUTSIDE RECORDS SUMMARY | 2025-02-18 14:27 | XMS_ITS | Encounter Summary ---
Author Organization [employer] Address [address] [facility] 7t [place] [address] Care Team Providers Care Welfare Aide Name Role Phone Jamila Robledo MD Primary Care Provide r Encounter Details Date Type Department Care Team (Latest Contact Info) Description 02/13/2025 Travel Social History Tobacco Use Types Packs/Day [...] documented as of this encounter Care Teams Welfare Aide Relationship Specialty Start Date End Date Jamila Robledo MD [address] [place] [address] PCP - General Family Medicine 05/02/19 documented as of this encounter
--- OUTSIDE RECORDS SUMMARY | 2025-02-18 14:27 | XMS_ITS | Encounter Summary ---
Author Organization [employer] Address [address] [facility] 7t [place] [address] Care Team Providers Care Tool Planner Name Role Phone Jamila Robledo MD Primary Care Provide r Reason for Visit * Reason Comments Med Refill Encounter Details Date Type Department Care Team ([facility] st Contact Info) Description 08/18/2024 Refill [facility] [address] [place], [place] [phone] Jamila Robledo MD [address] [place] [address] Acute non-recurrent frontal sinusitis Social History Tobacco [...] documented as of this encounter Care Teams Tool Planner Relationship Specialty Start Date End Date Jamila Robledo MD [address] [place] [phone] PCP - General Family Medicine 05/02/19 documented as of this encounter
--- OUTSIDE RECORDS SUMMARY | 2025-02-18 14:27 | XMS_ITS | Encounter Summary ---
Author Organization [employer] Address [address] [place] [address] Care Team Providers Care Assembler Dc Field Ring Name Role Phone Jamila Robledo MD Primary Care Provide r Encounter Details Date Type Department Care Team ([facility] Contact Info) Description 10/15/2024 Orders Only [facility] MED[facility]INE [address] [place] [address] ProviderArmen MD Social History Tobacco Use Types Packs/Day Years [...] on file documented as of this encounter Procedures Procedure Name Priority Date/Time Associated Diagnosis Comments SURGICAL PATHOLOGY Routine 09/10/2024 1:56 PM EDT documented in this encounter Results * Surgical Pathology (09/10/2024 1:56 PM EDT) us Historical Provider LAB PATHOLOGY ORDERABLES Final Result documented in this encounter Visit Diagnoses Not on filedocumented in this encounter Additional Health Concerns Assessment Noted Time PHQ-9 Depression Total Score: 0 02/06/20 24 2:56 PM EDT documented as of this encounter Care Teams Assembler Dc Field Ring Relationship Specialty Start Date End Date Jamila Robledo MD [address] [place] [id number] PCP - General Family Medicine 05/02/19 documented as of this encounter
--- OUTSIDE RECORDS SUMMARY | 2025-02-18 14:27 | XMS_ITS | Encounter Summary ---
Author Organization [employer] Address [address] [place] [address] Care Team Providers Care Lube Worker Name Role Phone Jamila Robledo MD Primary Care Provide r Reason for Visit * Reason Comments Med Change Request Encounter Details Date Type Department Care Team ([facility] Contact Info) Description 07/17/2023 Refill [facility] [address] [place], [place] [phone] Ruth Costello FNP [address] [place] [address] Social History Tobacco Use Types Packs/Day Years [...] documented as of this encounter Care Teams Lube Worker Relationship Specialty Start Date End Date Jamila Robledo MD [address] [place] [address] PCP - General Family Medicine 05/02/19 documented as of this encounter
--- OUTSIDE RECORDS SUMMARY | 2025-02-18 14:28 | XMS_ITS | Encounter Summary ---
Author Organization [employer] Address [address] [place] [address] Care Team Providers Care Construction Estimator Name Role Phone Jamila Robledo MD Primary Care Provide r Encounter Details Date Type Department Care Team ([facility] Contact Info) Description 09/16/2024 Orders Only [facility] [address] [place] [address] Provider, MD Armen Social History Tobacco Use [...] EDT documented in this encounter Results * Hm Colonoscopy (09/01/2022 9:48 AM EDT) [...] documented as of this encounter Care Teams Construction Estimator Relationship Specialty Start Date End Date Jamila Robledo MD [address] [place] [address] PCP - General Family Medicine 05/02/19 documented as of this encounter
--- OUTSIDE RECORDS SUMMARY | 2025-02-18 14:28 | XMS_ITS | Encounter Summary ---
Author Organization [employer] Address [address] [place] [address] [address] [place] [address] Care Team Providers Care Beamster Name Role Phone Jamila Robledo MD Primary Care Provide r Reason for Visit * Reason Comments Med Refill Encounter Details Date Type Department Care Team ([facility] st Contact Info) Description 11/28/2022 Refill [facility] [address] [place], [place] [phone] Jamila Robledo MD [address] [place] [address] Acute non-recurrent frontal sinusitis Social History Tobacco [...] documented as of this encounter Care Teams Beamster Relationship Specialty Start Date End Date Jamila Robledo MD [address] [place] [address] PCP - General Family Medicine 05/02/19 documented as of this encounter
--- OUTSIDE RECORDS SUMMARY | 2025-02-18 14:28 | XMS_ITS | Encounter Summary ---
Author Organization [employer] Address [address] [facility] [address] [place] [address] Care Team Providers Care Departmental Secretary Name Role Phone Jamila Robledo MD Primary Care Provide r Reason for Visit * Reason Comments Med Change Request Encounter Details Date Type Department Care Team ([facility] Contact Info) Description 12/13/2024 Refill [facility] [address] [place] [address] Jamila Robledo MD [address] [place] [address] Social History Tobacco Use Types Packs/Day Years [...] documented as of this encounter Care Teams Departmental Secretary Relationship Specialty Start Date End Date Jamila Robledo MD [address] [place] [address] PCP - General Family Medicine 05/02/19 documented as of this encounter
--- OUTSIDE RECORDS SUMMARY | 2025-02-18 14:28 | XMS_ITS | Encounter Summary ---
Author Organization [employer] Address [address] [place] [address] [address] [place] [address] Care Team Providers Care Deburring Machine Operator Name Role Phone Jamila Robledo MD Primary Care Provide r Reason for Visit * Reason Comments Med Refill Encounter Details Date Type Department Care Team ([facility] st Contact Info) Description 01/19/2023 Refill [facility] MED[facility]INE [address] [place], [place] [phone] Liza Matos FNP Psychophysiological insomnia Social History Tobacco Use Types [...] documented as of this encounter Care Teams Deburring Machine Operator Relationship Specialty Start Date End Date Jamila Robledo MD [address] [place], [place] [phone] PCP - General Family Medicine 05/02/19 documented as of this encounter
--- OUTSIDE RECORDS SUMMARY | 2025-02-18 14:28 | XMS_ITS | Encounter Summary ---
Author Organization [employer] [facility] Address [address] [place] [address] Encounters * CPT with [facility] at [facility] on 2025-02-06 Triage call for pain in right hip and leg. Had slipped ( did not fall completely )while walking last night. Patient with pain standing. Able to ambulate with limp. { reasonForRequest : Extremity pain , patientReports : ,&qu ot;denies :[], chiefComplaints : Extremity Pain , pmh : COPD/Asthma, Hypertension, Coronary Artery Disease, Gastroesophageal Reflux Disease (GERD), Anxiety Disorder , allergies : No Known Drug Allergies , otherAllergies :&quo t; , painAssessment : , visitOutcome : , additionalComments : Reviewed HPI } Sent to a call for a pt complaining of pain after a fall. [facility] arrives on scene, pt is alert and oriented, airway is patent. Pt states she was at a convenience store last night preparing to buy a tea when she stepped on a wet area of floor, and her right foot slipped out from under her causing her to tweak her back and hip/leg. Pt denies falling, but complains of right thoracic pain and right lower back and right hip pain radiating to right knee. Pain radiates from right lateral and posterior hip to knee. Pt complains of pain when bearing weight and moving right leg/hip or twisting/breathing deeply. Pt denies rene, dizziness, cp, sob, n/v/d, abd pain, black/bloody stool, hematuria, fever, or loc. Pt states she took Ibuprofen 800mg last night and again today at approx 10-11am. Pt denies history of CKD or being on blood thinners. Pt states she has a history of stomach ulcer which was found to be quarter size last year during an endoscopy. Pt states she hasn't had a follow up endoscopy due to complications with O2 desaturation during procedure. BP:141/92, P:79, RR:18, SpO2:96% RA, T:97.3;Head: unremarkable; Lung sounds: clear bilaterally; Abdomen: soft, non-tender, no distention; Back:right thoracic tenderness radiating right flank; right lumbar tenderness, Extremities: right lateral/posterior hip tenderness; Skin: pink, warm, dry; [facility] consulted and pt is advised she should not take Ibuprofen and unfortunately we cannot administer Toradol injection due to suspected active stomach ulcer. Pt is advised to take Tylenol for pain. [facility] orders Tylenol 1gm PO. [facility] sends script to pt'spharmacy for Tylenol. After talking with [facility], pt states she has acetaminophen at home, but hasn't taken any. Pt is advised Acetaminophen is the same as Tylenol and advised to take Tylenol (or acetamin ophen) 1gm TID. Allergies verified: Lisinopril; 5 med rights verified. Red flags discussed. Pt has no further questions. IV_(FLUIDS_AND/OR_MEDICATION), MEDICATION_IM, ORAL_MEDICATION, WOUND_CARE, ORTHOSTATIC_VITAL_SIGNS Written by Medical [facility] on 2025-02-06
--- OUTSIDE RECORDS SUMMARY | 2025-02-18 14:28 | XMS_ITS | Encounter Summary ---
Author Organization [employer] Address [address] [facility] [address] [place] [address] Care Team Providers Care Water Resource Agent Name Role Phone Jamila Robledo MD Primary Care Provide r Reason for Visit * Reason Onset Date Comments Med Change Request 03/11/2024 Encounter Details Date Type Department Care Team ([facility] Contact Info) Description 03/11/2024 Telephone [facility] [address] [place], [place] [phone] Jamila Robledo MD [address] [place] [address] Med Change Request Social History Tobacco Use [...] documented in this encounter Plan of Treatment Not on file documented as of this encounter Visit Diagnoses Not on filedocumented in this encounter Additional Health Concerns Assessment Noted Time PHQ-9 Depression Total Score: 0 02/06/20 2:56 PM EDT documented as of this encounter Care Teams Water Resource Agent Relationship Specialty Start Date End Date Jamila Robledo MD [address] [place] [id number] PCP - General Family Medicine 05/02/19 documented as of this encounter
--- OUTSIDE RECORDS SUMMARY | 2025-02-18 14:28 | XMS_ITS | Clinical Summary ---
Author Organization [employer] Address [address] [facility] [address] [place] [address] Care Team Providers Care Steward/Stewardess Room Name Role Phone Jamila Robledo MD Primary Care Provide r Allergies No known active allergies Medications * This document contains information received from the source organization and may not represent a complete record from that organization. cetirizine (ZyrTEC) 10 MG tabletIndicatio ns:Mild persistent [...] (pain and swelling). 30 g 2 Active fluticasone furoate (Arnuity Ellipta) 200 MCG/ACT inhaler TAKE 1 PUFF BY MOUTH ONCE A DAY 30 each 3 Active FREESTYLE LITE test stripIndication s:Prediabetes Use to test blood sugar 2 times daily 100 each 12 024 2024 Active Blood Glucose Monitoring Suppl (FreeStyle Savery Lite) w/Device kitIndications: Prediabetes Use to test [...] IN THE MORNING 90 tablet 1 Active PARoxetine (Paxil) 10 MG tablet TAKE 1 TABLET BY MOUTH EVERY DAY 90 tablet 2 Active medroxyPROGESTE Cory (Provera) 5 MG tabletIndicatio [...] AT BEDTIME 90 tablet 1 025 Active montelukast (Singulair) 10 MG tabletIndicatio ns:Mild persistent asthma without complication TAKE 1 TABLET BY MOUTH EVERY DAY IN THE EVENING 90 tablet 1 025 Active omeprazole (PriLOSEC) [address] capsuleIndicati ons:Gastroesoph ageal reflux disease, unspecified whether esophagitis present TAKE 1 CAPSULE (20 MG) BY MOUTH BEFORE BREAKFAST 90 capsule 1 025 Active hydroCHLOROthia zide (HYDRODiuril) 25 MG tabletIndicatio ns:Hypokalemia Take 1 tablet (25 mg) by mouth Once per day. 90 tablet 3 025 Active cyclobenzaprine (Flexeril) 10 MG tabletIndicatio ns:Muscle spasm,Mid back pain on right side,Acute right-sided low back pain without sciatica,Right hip pain Take 1 tablet (10 mg) by mouth 3 times daily for 10 days. 30 tablet 025 2024 Active lidocaine (Lidoderm) 5 % patchIndication s:Muscle spasm,Mid back pain on right side,Acute right-sided low back pain without sciatica,Right hip pain Apply 1 patch topically Once per day. Remove & discard patch within 12 hours or as directed by MD. 30 patch 1 Active azithromycin (Zithromax) 250 MG tabletIndicatio ns:Chronic pansinusitis Take 2 tabs PO daily x 1d then 1 tab PO daily on D2 to D5 6 tablet Active hydroCHLOROthia zide (HYDRODiuril) 25 MG tabletIndicatio ns:Hypokalemia TAKE 1 TABLET (25 MG) BY MOUTH ONCE PER DAY. 90 tablet 3 025 2024 Discontinued(R eorder (will not trigger notification to Pharmacy)) Active Problems Problem Noted Date Diagnosed Date Muscle spasm 02/13/2025 Assessment & Plan (02/13/2025 3:29 PM EDT): Heat on affected area Flexeril 10 mg every 8 hours prescribed she is aware of side effects somnolence she cannot drive or do activities that requires her attention while taking this medication I will also prescribe lidocaine patch 1 daily She may continue to take acetaminophen as needed I refer her to physical therapy Mid back pain on right side 02/13/2025 Assessment & Plan (02/13/2025 3:29 PM EDT): Heat on affected area Flexeril 10 mg every 8 hours prescribed she is aware of side effects somnolence she cannot drive or do activities that requires her attention while taking this medication I will also prescribe lidocaine patch 1 daily She may continue to take acetaminophen as needed I refer her to physical therapy Acute right-sided low back pain without sciatica 02/13/2025 Assessment & Plan (02/13/2025 3:29 PM EDT): Heat on affected area Flexeril 10 mg every 8 hours prescribed she is aware of side effects somnolence she cannot drive or do activities that requires her attention while taking this medication I will also prescribe lidocaine patch 1 daily She may continue to take acetaminophen as needed I refer her to physical therapy MDD (major depressive disord er), recurrent episode, moderate 10/28/2024 Nasal polyps 09/15/2024 Assessment & Plan (09/15/2024 [...] bleeding x2 days. Not currently established with [facility]. Abdominal exam benign. -ordered CBC, TSH, iron panel, and BMP. -ordered transvaginal US -referred to [facility] -prescribed medroxyPROGESTERone 5 mg, TID x5days Right hip pain 06/17/2024 Assessment & Plan (02/13/2025 3:29 PM EDT): Heat on affected area Flexeril 10 mg every 8 hours prescribed she is aware of side effects somnolence she cannot drive or do activities that requires her attention while taking this medication I will also prescribe lidocaine patch 1 daily She may continue to take acetaminophen as needed I refer her to physical therapy Trochanteric bursitis of right hip 06/17/2024 Prediabetes [...] educated to avoid triggers C/w same medications MERRY (generalized anxiety disorder) 06/25/2012 Assessment & Plan (09/15/2024 12:14 PM EDT): Counseling done I will prescribe her lorazepam just if really needed Encounters * This document contains information received from the source organization and may not represent a complete record from that organization. Date Type Department Care Team Description 02/13/2025 2:00 PM EDT Office Visit [facility] [address] [address] Jamila Robledo MD Muscle spasm (Primary Dx); Cough in adult patient; Mid back pain on right side; Acute right-sided low back pain without sciatica; Right hip pain; Chronic pansinusitis 02/13/2025 Travel 02/09/2025 Refill [facility] [address] [place] [address] Jamila Robledo MD Hypokalemia 02/09/2025 Telephone [facility] [address] [place] [address] Jamila Robledo MD Prior Authorization (CCA PA: Hydrochlorothiazide) 02/06/2025 Telephone [facility] [address] [place] [address] Jamila Robledo MD Nurse Triage 01/06/2025 Refill [facility] [address] [place], [place] [phone] Jamila Robledo MD Psychophysiological insomnia; Mild persistent asthma without complication; Gastroesophageal reflux disease, unspecified whether esophagitis present 12/30/2024 Travel 12/23/2024 Refill [facility] [address] [place] [address] Jamila Robledo MD Hypokalemia 12/13/2024 Refill [facility] [address] [place] [address] Jamila Robledo MD 12/01/2024 Refill [facility] [address] [place] [address] Jamila Robledo MD 11/29/2024 Refill [facility] [address] [place] [address] Jamila Robledo MD from Last 3 Months Immunizations Immunization Administration Dates Next Due Influenza, IIV3, injectable [...] (185 lb) 02/13/2025 1:41 PM EDT Height 160 cm (5' 3 ) 09/15/2024 11:15 AM EDT Body Mass Index 32.77 09/15/2024 11:15 AM EDT Plan of Treatment Health Maintenance Due Date Last Done Comments CT Colonography 1975 FIT DNA/Cologuard 1975 FIT 1975 FOBT 1975 HIV Screening 1975 Sigmoidoscopy 1975 Alcohol/Substance Use Screening 1987 Family Planning (PISQ) 1990 Hepatitis B Vaccines (1 of 3 - 19+ 3-dose series) 1994 COVID-19 Vaccine ( season) 2024 05/02/2021, 09/01/2020 SDOH Screening 10/17/2024 10/18/2023 Influenza Vaccine (#1) 2025 02/24/2009 Diabetes: Hemoglobin A1C 03/11/2025 024, 01/08/2024, 10/07/2020 Zoster Vaccines (1 of 2) 2025 Depression Monitoring 07/03/2025 12/31/2024, 025 Colonoscopy 09/01/2025 09/01/2022 Colorectal Cancer Screening 09/01/2025 Mammogram 01/20/2026 01/20/2025, 08/0 10/2024, 05/01/2022, Additional history exists Disability Screening 02/13/2026 02/13/2025 Tobacco Screening 02/13/2026 02/13/2025 Lipid Panel 01/07/2029 01/08/2024, 10/07/2020 Cervical Cancer Screening 09/10/2029 HPV/Cotest 09/10/2029 09/10/2024, 08/28/2019 Pap Smear 09/10/2029 09/10/2024 DTaP/Tdap/Td Vaccines (4 - Td or Tdap) 06/20/2032 06/20/2022, 10/14/2012, 12/27/2009 RSV Patients and Patients Aged 60 years or older (1 - 1-dose 75+ series) 2050 Pneumococcal Vaccine: Pediatrics (0 to 5 Years) and At-Risk Patients (6 to 49) Years Completed 11/01/2023, 06/07/2005 Hepatitis C Screening Completed [...] patient's age to complete this topic Meningococcal B Vaccine Aged Out No l onger eligible based on patient's age to complete [...] 1:44 PM EDT Cough in adult patient BI US BREAST LIMITED BILATERAL Routine 01/20/2025 12:33 PM EDT BI MAMMOGRAM DIAGNOSTIC TOMOSYNTHESIS BILATERAL Routine 01/20/2025 12:07 PM EDT HPV DNA, LOW/HIGH RISK Routine 09/10/2024 8:28 AM EDT PAP SMEAR Routine 09/10/2024 8:28 AM EDT HEPATITIS C ANTIBODY Routine 04/03/2024 11:38 AM EDT POCT GLYCATED HEMOGLOBIN, TOTAL Routine 03/11/2024 5:49 PM EDT Prediabetes LIPID PANEL, STANDARD Routine 01/08/2024 12:04 PM EDT Essential hypertension HM COLONOSCOPY Routine 09/01/2022 9:48 AM EDT from Last 3 Months or Most Recently Relevant to Health Maintenance Results * Influenza B (ID NOW Rapid Molecular) (02/13/2025 1:56 PM EDT) Influenza B Negative Negative, Indeterminate [facility] Swab 02/13/2025 1:56 PM EDT us Jamila Beebe MD POINT OF CARE TEST EN TER/EDIT ORDERABLES Final Result Performing Organization Address City/[facility]/ZIP Co de Phone Number [facility] [address] [place] [phone] * Influenza A (ID NOW Rapid Molecular) (02/13/2025 1:56 PM EDT) Influenza A Negative Negative, Indeterminate [facility] Swab 02/13/2025 1:56 PM EDT Jamila Beebe MD POINT OF CARE TEST EN TER/EDIT ORDERABLES Final Result Performing Organization Address [facility] Co de Phone Number [facility] [address] [place] [phone] * POCT Rapid COVID Ag (02/13/2025 1:44 PM EDT) Rapid COVID Ag Negative Swab 02/13/2025 1:44 PM EDT Jamila Beebe MD POINT OF CARE TEST EN TER/EDIT ORDERABLES Final Result * BI US Breast Limited Bilateral (01/20/2025 12:33 PM EDT) Anatomical Region Laterality Modality Breast Bilateral Ultrasound 01/20/2025 12:3 3 PM EDT Narrative 01/20/2025 1:15 PM EDT [address] [place] [address] Ultrasound Report Signed Patient: Rohini Conner MR#: [id number] : 1975 Acct:[id number] Age/Sex: 49 / F ADM Date: 01/20/25 Loc: HO.MAMMO Attending Dr: Jamila Beebe MD Ordering Physician: Margarito Benoit MD Date of Service: 01/20/25 Procedure(s): US breast BI limited mamm only Accession Number(s): [id number] cc: Jamila Robledo MD; Margarito Benoit MD EXAMINATIONS: 1. MM DIAGNOSTIC DIGITAL BREAST TOMOSYNTHESIS, BILATERAL 2. Targeted ultrasound of right breast 3. Targeted ultrasound of the left breast CLINICAL INFORMATION: Bilateral breast pain. COMPARISON: Comparison made to multiple prior, most recent May 01, 2022, and most remote left mammogram on August 28, 2018. TECHNIQUE: Digital breast tomosynthesis is performed in both the craniocaudal and mediolateral oblique views along with computer-aided detection (CAD). Synthesized 2D images are generated from the tomosynthesis. Triangular skin marker was placed at the location of the pain into breast. FINDINGS: BREAST COMPOSITION: There are scattered areas of fibroglandular density (ACR BI-RADS breast composition Category b). RIGHT BREAST: No significant masses, suspicious calcifications or other abnormalities are seen. In particular, no abnormalities adjacent to the triangular skin marker. Targeted ultrasound of the right breast was performed at the location of the pain as indicated by the patient along the 2:00-4:00 axis. Survey did not reveal suspicious findings. LEFT BREAST: No significant masses, suspicious calcifications or other abnormalities are seen. In particular, no abnormalities adjacent to the triangular skin marker. Targeted ultrasound of the left breast was performed at the location of the pain as indicated by the patient along the 8:00-10:00 axis. Survey did not reveal suspicious findings. US/US breast BI limited mamm only IMPRESSION: RIGHT BREAST: Negative, no evidence of malignancy. Clinical follow-up is recommended for the concern of focal pain. Otherwise, normal interval follow-up mammogram is recommended in 12 months. LEFT BREAST: Negative, no evidence of malignancy. Clinical follow-up is recommended for the concern of focal pain. Otherwise, normal interval follow-up mammogram is recommended in 12 months. ASSESSMENT: BI-RADS 2 - Benign Findings RECOMMENDATION: 1. Patient should be managed based on the clinical impression. 2. Otherwise, routine annual screening mammography. Results were provided to the patient at time of visit by the technologist. This patient's information was entered into a reminder system with a target due date for their next mammogram. Electronically signed by: Rene Felder MD 01/20/2025 01:13 PM EDT Dictated By: Rene Felder MD Signed By: <Electronically signed by Rene Felder MD in OV> 01/20/25 1313 DD/ 1233 TD/TT: 01/20/25 1246 Dressing Room Attendant: Procedure Note Donotuseinterpreter, Image - 01/20/2025 [facility] [address] [place] [address] Ultrasound Report Signed Patient: Elham Conner#: [id number] : 1975Acct:[id number] Age/Sex: 49 / FADM Date: 01/20/25 Loc: HO.MAMMO Attending Dr: Jamila Beebe MD Ordering Physician: Margarito Benoit MD Date of Service: 01/20/25 Procedure(s): US breast BI limited mamm only Accession Number(s): [id number] cc: Jamila Robledo MD; Margarito Benoit MD EXAMINATIONS: 1. MM DIAGNOSTIC DIGITAL BREAST TOMOSYNTHESIS, BILATERAL 2. Targeted ultrasound of right breast 3. Targeted ultrasound of the left breast CLINICAL INFORMATION: Bilateral breast pain. COMPARISON: Comparison made to multiple prior, most recent May 01, 2022, and most remote left mammogram on August 28, 2018. TECHNIQUE: Digital breast tomosynthesis is performed in both the craniocaudal and mediolateral oblique views along with computer-aided detection (CAD). Synthesized 2D images are generated from the tomosynthesis. Triangular skin marker was placed at the location of the pain into breast. FINDINGS: BREAST COMPOSITION: There are scattered areas of fibroglandular density (ACR BI-RADS breast composition Category b). RIGHT BREAST: No significant masses, suspicious calcifications or other abnormalities are seen. In particular, no abnormalities adjacent to the triangular skin marker. Targeted ultrasound of the right breast was performed at the location of the pain as indicated by the patient along the 2:00-4:00 axis. Survey did not reveal suspicious findings. LEFT BREAST: No significant masses, suspicious calcifications or other abnormalities are seen. In particular, no abnormalities adjacent to the triangular skin marker. Targeted ultrasound of the left breast was performed at the location of the pain as indicated by the patient along the 8:00-10:00 axis. Survey did not reveal suspicious findings. US/US breast BI limited mamm only IMPRESSION: RIGHT BREAST: Negative, no evidence of malignancy. Clinical follow-up is recommended for the concern of focal pain. Otherwise, normal interval follow-up mammogram is recommended in 12 months. LEFT BREAST: Negative, no evidence of malignancy. Clinical follow-up is recommended for the concern of focal pain. Otherwise, normal interval follow-up mammogram is recommended in 12 months. ASSESSMENT: BI-RADS 2 - Benign Findings RECOMMENDATION: 1. Patient should be managed based on the clinical impression. 2. Otherwise, routine annual screening mammography. Results were provided to the patient at time of visit by the technologist. This patient's information was entered into a reminder system with a target due date for their next mammogram. Electronically signed by: Rene Felder MD 01/20/2025 01:13 PM EDT Dictated By: Rene Felder MD Signed By: <Electronically signed by Rene Felder MD in OV> 01/20/25 1313 DD/ 1233 TD/TT: 01/20/25 1246 Dressing Room Attendant: us [employer] External Provider IMG US PROCEDURES Edited Result - Final * BI Mammogram Diagnostic Tomosynthesis Bilateral (01/20/2025 12:07 PM EDT) Anatomical Region Laterality Modality Breast Bilateral Mammography 01/20/2025 12:0 7 PM EDT Narrative 01/20/2025 1:15 PM EDT [address] [place], [place] [address] Mammography Report Signed Patient: Rohini Conner MR#: [id number] : 1975 Acct:[id number] Age/Sex: 49 / F ADM Date: 01/20/25 Loc: HO.MAMMO Attending Dr: Jamila Beebe MD Ordering Physician: Margarito Benoit MD Results: 2Benign Findings Date of Service: 01/20/25 Follow Up: 1 Year From [facility] Mammogram Procedure(s): MM tomosynthesis diagnostic BI Accession Number(s): [id number] cc: Jamila Robledo MD; Margarito Benoit MD EXAMINATIONS: 1. MM DIAGNOSTIC DIGITAL BREAST TOMOSYNTHESIS, BILATERAL 2. Targeted ultrasound of right breast 3. Targeted ultrasound of the left breast CLINICAL INFORMATION: Bilateral breast pain. COMPARISON: Comparison made to multiple prior, most recent May 01, 2022, and most remote left mammogram on August 28, 2018. TECHNIQUE: Digital breast tomosynthesis is performed in both the craniocaudal and mediolateral oblique views along with computer-aided detection (CAD). Synthesized 2D images are generated from the tomosynthesis. Triangular skin marker was placed at the location of the pain into breast. FINDINGS: BREAST COMPOSITION: There are scattered areas of fibroglandular density (ACR BI-RADS breast composition Category b). RIGHT BREAST: No significant masses, suspicious calcifications or other abnormalities are seen. In particular, no abnormalities adjacent to the triangular skin marker. Targeted ultrasound of the right breast was performed at the location of the pain as indicated by the patient along the 2:00-4:00 axis. Survey did not reveal suspicious findings. LEFT BREAST: No significant masses, suspicious calcifications or other abnormalities are seen. In particular, no abnormalities adjacent to the triangular skin marker. Targeted ultrasound of the left breast was performed at the location of the pain as indicated by the patient along the 8:00-10:00 axis. Survey did not reveal suspicious findings. MM/MM tomosynthesis diagnostic BI IMPRESSION: RIGHT BREAST: Negative, no evidence of malignancy. Clinical follow-up is recommended for the concern of focal pain. Otherwise, normal interval follow-up mammogram is recommended in 12 months. LEFT BREAST: Negative, no evidence of malignancy. Clinical follow-up is recommended for the concern of focal pain. Otherwise, normal interval follow-up mammogram is recommended in 12 months. ASSESSMENT: BI-RADS 2 - Benign Findings RECOMMENDATION: 1. Patient should be managed based on the clinical impression. 2. Otherwise, routine annual screening mammography. Results were provided to the patient at time of visit by the technologist. This patient's information was entered into a reminder system with a target due date for their next mammogram. Electronically signed by: Rene Felder MD 01/20/2025 01:13 PM EDT Dictated By: Rene Felder MD Signed By: <Electronically signed by Rene Felder MD in OV> 01/20/25 1313 DD/ 1207 TD/TT: 01/20/25 1231 Dressing Room Attendant: Procedure Note Donotuseinterpreter, Image - 01/20/2025 [facility] [address] [place] [address] [place] [address] Mammography Report Signed Patient: Allyssa ConnerR#: [id number] : 1975Acct:[id number] Age/Sex: 49 / FADM Date: 01/20/25 Loc: HO.MAMMO Attending Dr: Jamila Beebe MD Ordering Physician: Margarito Benoit MDResults: 2Benign Findings Date of Service: 01/20/25Follow Up: 1 Year From Orig inal Mammogram Procedure(s): MM tomosynthesis diagnostic BI Accession Number(s): [id number] cc: Jamila Robledo MD; Margarito Benoit MD EXAMINATIONS: 1. MM DIAGNOSTIC DIGITAL BREAST TOMOSYNTHESIS, BILATERAL 2. Targeted ultrasound of right breast 3. Targeted ultrasound of the left breast CLINICAL INFORMATION: Bilateral breast pain. COMPARISON: Comparison made to multiple prior, most recent May 01, 2022, and most remote left mammogram on August 28, 2018. TECHNIQUE: Digital breast tomosynthesis is performed in both the craniocaudal and mediolateral oblique views along with computer-aided detection (CAD). Synthesized 2D images are generated from the tomosynthesis. Triangular skin marker was placed at the location of the pain into breast. FINDINGS: BREAST COMPOSITION: There are scattered areas of fibroglandular density (ACR BI-RADS breast composition Category b). RIGHT BREAST: No significant masses, suspicious calcifications or other abnormalities are seen. In particular, no abnormalities adjacent to the triangular skin marker. Targeted ultrasound of the right breast was performed at the location of the pain as indicated by the patient along the 2:00-4:00 axis. Survey did not reveal suspicious findings. LEFT BREAST: No significant masses, suspicious calcifications or other abnormalities are seen. In particular, no abnormalities adjacent to the triangular skin marker. Targeted ultrasound of the left breast was performed at the location of the pain as indicated by the patient along the 8:00-10:00 axis. Survey did not reveal suspicious findings. MM/MM tomosynthesis diagnostic BI IMPRESSION: RIGHT BREAST: Negative, no evidence of malignancy. Clinical follow-up is recommended for the concern of focal pain. Otherwise, normal interval follow-up mammogram is recommended in 12 months. LEFT BREAST: Negative, no evidence of malignancy. Clinical follow-up is recommended for the concern of focal pain. Otherwise, normal interval follow-up mammogram is recommended in 12 months. ASSESSMENT: BI-RADS 2 - Benign Findings RECOMMENDATION: 1. Patient should be managed based on the clinical impression. 2. Otherwise, routine annual screening mammography. Results were provided to the patient at time of visit by the technologist. This patient's information was entered into a reminder system with a target due date for their next mammogram. Electronically signed by: Rene Felder MD 01/20/2025 01:13 PM EDT Dictated By: Rene Felder MD Signed By: <Electronically signed by Rene Felder MD in OV> 01/20/25 1313 DD/ 1207 TD/TT: 01/20/25 1231 Dressing Room Attendant: [facility] External Provider IMG BI PROCEDURES Edited Result - Final * HPV DNA, Low/High Risk (09/10/2024 8:28 AM EDT) HPV High Risk Negative Negative [facility] HPV Genotype 16 Negative Negative [facility] HPV Genotype 18 Negative Negative [facility] Comment:HPV testing performe d at [facility] (CLIA#[id number]), [address] [place] [address].Testing for HPV was performed using the [employer] Enpirion0system. The presence of HPV in the female [...] Provider LAB BLOOD ORDERAB LES Final Result [facility] [address] [place] [phone] * Pap Smear (09/10/2024 8:28 AM EDT) 09/10/2024 8:28 AM EDT 09/11/2024 6:05 AM EDT Narrative [facility] - 09/16/2024 10:22 AM EDT ----- ------- Name: Rohini Conner Age/Sex: 49/F : 1975 Unit#: [id number] Attend Dr: Margarito Benoit MD Re09/10/24 Status: DEP REF Location: [facility] Disch: ----- ------- SPEC : [id number] RECD: 09/11/24 STATUS: COOPER GARCÍA NUM: [id number] LAVELL: 09/10/24 [facility] DR: Margarito Benoit MD ENTERED: 09/11/24 SP TYPE: Pap Smr OTHR DR: Jamila Robledo MD ORDERED: Pap Smear Interpretation Satisfactory for evaluation. Negative for intraepithelial lesion or malignancy. Scant cellularity. HPV High Risk: Negative HPV Genotyping 16: Negative HPV Genotyping 18: Negative Clinical Information LMP: UNK Previous PAP test: UNK Other surgery: Other history: Material Received ThinPrep-Cervical Copies To: Jamila Robledo MD [address] [phone] Margarito Benoit MD [facility] [address] [place] [address] [address] [place] [address] [phone] ----- ------- Signed (signature on file) Juan TEGAN Dent ([facility]) 09/16/24 1022 ----- ------- END OF REPORT Generic External Data Provider LAB CYTOLOGY ORDE RABLES Final Result Performing Organization Address [facility] de Phone Number [facility] [address] [place] [address] [phone] * Hepatitis C Ab (04/03/2024 11:38 AM EDT) [facility] [place] Hepatitis C Antibody Nonreactive Nonreactive [facility] Comment:Antibodies to HCV no t detected; does not exclude early acuteHCV infection. 04/03/2024 11:3 8 AM EDT 04/03/2024 11:48 AM EDT Generic External Data Provider LAB BLOOD ORDERAB LES Final Result Performing Organization Address [facility] Co de Phone Number [facility] [address] [place] [address] [phone] * (ABNORMAL) POCT HGB A1C (03/11/2024 5:49 PM EDT) Pathologist [facility] Hemoglobin A1C 6.3(A) 4.0 - 6.0 % QC Media Lot # [id number] Lot# Expiration Date ,[id number] Blood 03/11/2024 5:49 PM EDT us Wicho Desai MD POINT OF CARE TEST ENTER/EDIT OR DERABLES Final Result * (ABNORMAL) Lipid Panel, Standard (01/08/2024 12:04 PM EDT) Triglycerides 143 <150 mg/dL [facility] Comment:Desirable Triglyceri de: less than [...] 190 mg/dL HDL Cholesterol 40(L) >40 mg/dL [facility] Comment:Desirable HDL: great er than 40 mg/dL Note: This HDL assay may give artificially low results in patients with liver disease. Blood Venous blood specimen / Unknown 01/08/2024 12:04 PM EDT 01/08/2024 1:04 PM EDT us Jamila Beebe MD LAB BLOOD ORDERABLES Final Result [facility] [address] [place] [phone] * Hm Colonoscopy (09/01/2022 9:48 AM EDT) Colonoscopy Normal Normal Narrative MaiteBeatrice boothe - 09/01/2022 9:48 AM EDT Repeat in 3 years see the external hospital admission note on 09/01/2022 Historical Provider HEALTH MAINTENANCE Edited Result - Final from Last 3 Months or Most Recently Relevant to Health Maintenance Insurance [place], [place] [facility] ONE CARE < 65 [place] [id number] Care Teams Steward/Stewardess Room Relationship Specialty Start Date End Date Jamila Robledo MD [address] [place] [phone] PCP - General Family Medicine 05/02/19
== END 2025-02-18 12:17 | disposition home or self-care (01) ==
LOC: HO.HWS 11:52
PROVIDERS: PCP Internal Medicine; Visit Provider Obstetrics & Gynecology
DX: N64.4 Mastodynia (principal)
CPT/HCPCS: 99213

== ENCOUNTER → 2025-02-18 11:52 | Outpatient (BNVA) | payer OTHER, SELFPAY | PROVIDERS: PCP Internal Medicine; Visit Provider Obstetrics & Gynecology | DX: Z71.2 Person consulting for explanation of examination or test findings (principal); N64.4 Mastodynia | CPT/HCPCS: 99212 ==

== ENCOUNTER 2025-05-09 14:33 | Outpatient (AMB) | payer OTHER, SELFPAY ==
[2025-05-09 14:36] VITALS: BP 118/62; PULSE 87; RESP 16; TEMP 36.8; O2SAT 96; BMI 34.0
--- NOTE | 2025-05-09 14:36 | MHC.OFFWIV ---
Intake Vital Signs 05/09/25 14:36 Height 5 ft 1 in Weight 180 lb BMI 34.0 BP 118/62 Blood Pressure Location Rt brachial Position Sitting Respiration 16 Pulse 87 Pulse Source Pulse Oximeter Temp 98.2 F Temp Source Oral Pulse Oximetry (%) 96 Oxygen Delivery Method Room Air Intake Visit Reasons: EP- Lt elbow pain and burning sensation Intake Note: c/o L elbow pain Patient Tobacco Use Status: Current everyday Tobacco user Allergies famotidine (FAMOTIDINE) Allergy (Mild, Verified 05/09/25 14:40) HEADACHES ENVIRONMENTAL Allergy (Intermediate, Uncoded 05/09/25 14:40) NASAL CONGESTION Medication List - Last Reconciled 05/09/25 by Phi Queen MD acetaminophen (Tylenol Extra Strength) 1,000 mg (2 x 500 mg) PO QID PRN albuterol sulfate 90 mcg/actuation 2 puffs inhalation Q4-6H PRN baclofen mg PO 3XD cetirizine (Zyrtec) 10 mg PO DAILY PRN diltiazem HCl CD 120 mg PO DAILY hydrochlorothiazide mg PO DAILY hydrocortisone 2.5% 1 appl [place] BID-QID PRN 30 days Lactobacillus rhamnosus GG (Culturelle) 1 cap PO DAILY 90 days lisinopril 5 mg PO QAM loratadine 10 mg PO DAILY PRN lorazepam 0.5 - 1 tabs PO TID PRN meloxicam 15 mg PO DAILY 30 days metoprolol succinate ER 12.5 mg PO DAILY montelukast 10 mg PO QPM naproxen 500 mg PO BID PRN omeprazole 20 mg PO DAILY 90 days ondansetron 4 mg PO Q8H PRN paroxetine HCl 10 mg PO DAILY prednisone 40 mg (2 x 20 mg) PO DAILY 4 days semaglutide (weight loss) (Wegovy) mg subcut trazodone 50 mg PO BEDTIME HPI EP- Lt elbow pain and burning sensation HPI Details Pt is here today c/o Lt elbow pain and burning sensation x3 days: No injury noted she has seen her own primary and has a referral to ortho. She says she has had steroid injections in the past which have helped temporarily. Currently she has been using Anjel-Russell and ibuprofen. She says these are not helping much. [facility] Medical History (Updated 05/09/25 @ 14:59 by Phi Queen MD) Urinary incontinence, mixed Nasal polyps Abnormal vaginal bleeding Trochanteric bursitis of right hip Right hip pain Prediabetes Hypokalemia Chronic maxillary sinusitis Epigastric pain Chronic pansinusitis Vascular insufficiency Acute non-recurrent frontal sinusitis Rash Callus of foot Allergic rhinitis Bacterial sinusitis Colitis Cramp in limb Decreased thyroid stimulating hormone level Excessive and frequent menstruation Hemorrhoids Pain in finger Concetta-menopause Skin tag Cough Snoring Essential (primary) hypertension Bleeding hemorrhoids Chronic back pain Sleep apnea Depression GERD (gastroesophageal reflux disease) Anxiety Hypertension Asthma Tachycardia Surgical History Tubal ligation status H/O hand surgery Hx of foot surgery History of esophagogastroduodenoscopy (EGD) H/O colonoscopy Family History Father Stomach cancer Social History Household Members: Family Alcohol intake: never Patient Tobacco Use Status: Current everyday Tobacco user Tobacco use type: Cigarette Cigarettes Per Day: 10 Years Smoked: 40 Review of Systems Const Denies chills, Denies fatigue, Denies fever(s), Denies headache(s) and Denies weakness ENT Denies dizziness and Denies headache(s) Card Denies dyspnea Resp Denies cough, Denies dyspnea, Denies wheezing and Denies other ( shortness of breath) Musc Details: Left elbow pain. See HPI Neuro Denies dizziness, Denies headache(s), Denies paresthesias and Denies weakness Psych Denies anxiety and Denies depression Endo Denies fatigue Aller/Immun Denies wheezing Physical Exam Vital Signs: Last Vital Signs Temp 98.2 F 05/09/25 14:36 Pulse 87 05/09/25 14:36 Resp 16 05/09/25 14:36 BP 118/62 05/09/25 14:36 Pulse Ox 96 05/09/25 14:36 Oxygen Delivery Method Room Air 05/09/25 14:36 BMI result Body Mass Index 34.0 Const General: no acute distress and well developed Nutritional Appearance: well nourished Orientation/consciousness: patient oriented x3 HEENT Head: Yes normocephalic and Yes atraumatic Eyes General: appearance normal, both eyes and all related structures Pupils: Equal, round and reactive pupils present EOM: EOMs intact bilaterally Resp Effort & Inspection: normal respiratory effort Neuro General: patient oriented x3 and gait normal Cranial nerves: Yes Equal, round and reactive pupils present Extrem Other: pain, swelling and tenderness at left medial epicondyle pain with pronation of forearm against resistance Psych Affect: normal affect Assessment & Plan Assessment & Plan (1) Medial epicondylitis, left elbow: Code(s): M77.02 - Medial epicondylitis, left elbow Plan: encouraged relative rest and ice will change ibuprofen to meloxicam also sending a script for short course of prednisone follow-up with ortho for definitive care Medications: New meloxicam 15 mg PO DAILY 30 tabs 2RF 30 days prednisone 40 mg (2 x 20 mg) PO DAILY 8 tabs 0RF 4 days Coding Level of Care Code Est Pt Level 3 (08423) Diagnoses Medial epicondylitis, left elbow M77.02
--- OUTSIDE RECORDS SUMMARY | 2025-05-09 14:36 | XMS_ITS | Encounter Summary ---
Author Organization [employer] Address [address] [facility] [address] [place] [address] Care Team Providers Care Rn Visiting Name Role Phone Jamila Robledo MD Primary Care Provide r Reason for Visit * Reason Onset Date Comments Med Refill 04/20/2025 Encounter Details Date Type Department Care Team ([facility] Contact Info) Description 04/20/2025 Refill [facility] [address] [place] [address] Jamila Robledo MD [address] [place] [address] Chronic pansinusitis Social History Tobacco Use Types Packs/Day Years Used Date Smoking Tobacco: Every Day Cigarettes 0.3 1.9 Started: 2023 Passive Smoke Exposure: Current Smokeless [...] Date Recorded Patient Health Questionnaire-9 Score 0 03/31/2025 Patient Health Questionnaire-9 Score 0 03/31/2025 Last PHQ-9: Questionnaire Data Not on file 1 Housing Stability Answer Date Recorded What is [...] Date Recorded Patient Health Questionnaire-2 Score 0 03/31/2025 Comments No Sex and Gender Information Value Date Recorded Sex Assigned at Female 04/17/2022 10:14 AM EDT Legal Sex Female 10:14 AM EDT Gender Identity Female 04/17/2022 10:14 AM EDT Sexual Orientation Straight 04/17/2022 10 :14 AM EDT documented as of this encounter Plan of Treatment Not on file documented as of this encounter Visit Diagnoses Diagnosis Chronic pansinusitis Other chronic sinusitis documented in this encounter Additional Health Concerns Assessment Noted Time PHQ-9 Depression Total Score: 0 03/31/20 25 9:05 AM EDT documented as of this encounter Care Teams Rn Visiting Relationship Specialty Start Date End Date Jamila Robledo MD [address] [place] [phone] PCP - General Family Medicine 05/02/19 documented as of this encounter
--- OUTSIDE RECORDS SUMMARY | 2025-05-09 14:36 | XMS_ITS | Encounter Summary ---
Author Organization [employer] Address [address] [facility] [address] [place] [address] Care Team Providers Care Manager Contract Name Role Phone Jamila Robledo MD Primary Care Provide r Reason for Visit * Reason Comments Med Change Request Encounter Details Date Type Department Care Team ([facility] Contact Info) Description 12/01/2024 Refill [facility] [address] [place] [address] Jamila Robledo MD [address] [place] [address] Social History Tobacco Use Types Packs/Day Years [...] as of this encounter Care Teams Manager Contract Relationship Specialty Start Date End Date Jamila Robledo MD [address] [place] [address] PCP - General Family Medicine 05/02/19 documented as of this encounter
--- OUTSIDE RECORDS SUMMARY | 2025-05-09 14:36 | XMS_ITS | Continuity of Care Document ---
Author Organization [employer] [facility] [place] [employer] [facility] Address [address] [place] [address] Care Team Providers Care Trade Specialist Name Role Phone Unavailable Referring Provider [facility] Referring Provider Assessment Encounter Date Assessment Date Assessment LastModified by Organization Details LastModified Time 02/06/2025 02/06/2025 service called for back and hip pain found 49 rony with hx COPD HTN CAD GERD gastric ulcer by endoscopsy, no hx bleeding anxiety reports 1d prior, slipped at establishment since that time c/o R-side, mid-thorasic pain and R lower back rad to R hip and knee able to bear weight and ambulate minimal relief with OTC ibu 800mg, however, results in abd pain VS af 141/92 82 18 96%RA reported exam muscular tenderness R mid-thorasic, lower back and hip #Muscle strain advised to d/c ibuprofen re gastric ulcer bleeding risk safer for acetaminophen continue conservative treatment notify service if wrosening or no improvement otherwise return to ptimary team and GI care [email or web address] Not available 02/06/2025 16:42:37 Plan of Treatment Reminders Order Date Submit Date Provider Last Modified By Organization Details Last Modified Time Details Appointments None recorded. Lab None recorded. Referral None recorded. Procedures None recorded. Surgeries None recorded. Imaging None recorded. Medication Orders acetaminoph en 500 mg tablet 2024 025 [id number], [address] [place], [address], 5 05:01:03 acetaminoph en 500 mg tablet 2024 025 [id number], [address] [place], [address], 5 05:01:03 Patient TargetsNo targets recorded. Patient InstructionsNo instructions recorded. Reason for Referral None Reported. Problems Name Problem SNOMED Code Status Onset Date Resolution Date Notes Provider Name and Address Organization Details Recorded Time Gastric ulcer [id number] Active 025 Uma Vera MD [address] [facility], [place], [phone] , [employer], [employer] 16:36:11 Problem Notes None recorded. Medical Equipment None Reported. Allergies No known drug allergies Medications Name Sig Start Date Stop Date Status Note LastModified by Organization Details LastModified Time cyclobenzap rine 10 mg tablet TAKE 1 TABLET (10 MG) BY MOUTH 3 TIMES A DAY FOR 10 DAYS active Not Available Not Available No t Available silver sulfadiazin e 1 % topical cream APPLY TOPICALLY IN THE MORNING FOR 10 DAYS. NEEDED active Not Available Not Available No t Available metformin 500 mg tablet TAKE 1 TABLET (500 MG) BY MOUTH WITH BREAKFAST AND WITH EVENING MEAL active Not Available Not Available No t Available paroxetine 10 mg tablet TAKE 1 TABLET BY MOUTH EVERY DAY active Not Available Not Available No t Available trazodone 50 mg tablet TAKE 1 TABLET BY MOUTH EVERYDAY AT BEDTIME active Not Available Not Available No t Available cetirizine 10 mg tablet TAKE 1 TABLET (10 MG) BY MOUTH ONCE PER DAY. active Not Available Not Available No t Available azithromyci n 250 mg tablet TAKE 2 TABLETS BY MOUTH TODAY, THEN TAKE 1 TABLET DAILY FOR 4 DAYS DIRECTED active Not Available Not Available No t Available ibuprofen 800 mg tablet TAKE 1 TABLET BY MOUTH THREE TIMES A DAY WITH FOOD NEEDED FOR PAIN 02/06 completed Not Available Not Available Not Available hydrochloro thiazide 50 mg tablet TAKE 1 TABLET BY MOUTH EVERY DAY IN THE MORNING active Not Available Not Available No t Available FreeStyle Lancets 28 gauge USE TO TEST BLOOD SUGAR 2 TIMES DAILY active Not Available Not Available No t Available ondansetron HCl 4 mg tablet TAKE 2 TABLETS BY MOUTH TWICE A DAY active Not Available Not Available No t Available prednisone 20 mg tablet TAKE 2 TABLETS BY MOUTH EVERY DAY FOR 5 DAYS 02/06 completed Not Available Not Available Not Available medroxyprog esterone 5 mg tablet TAKE 1 TABLET (5 MG) BY MOUTH 3 TIMES DAILY FOR 5 DAYS. active Not Available Not Available No t Available metronidazo le 500 mg tablet TAKE 1 TABLET BY MOUTH 2 TIMES DAILY FOR 7 DAYS active Not Available Not Available No t Available amlodipine 5 mg tablet TAKE 1 TABLET BY MOUTH EVERY DAY FOR 30 DAYS active Not Available Not Available No t Available acetaminoph en 500 mg tablet Take 2 tablets 3 times a day by oral route as needed for 14 days. 02/27 completed Not Available Not Available Not Available triamcinolo ne acetonide 0.1 % topical cream APPLY TOPICALLY IF NEEDED IN THE MORNING AND AT BEDTIME (PAIN AND SWELLING) . active Not Available Not Available No t Available hydrocortis one 2.5 % topical cream with perineal applicator APPLY A THIN LAYER TO AFFECTED AREA(S) 2 TO 4 TIMES DAILY active Not Available Not Available No t Available potassium chloride ER 20 mEq tablet,exte nded release(par t/cryst) TAKE 1 TABLET (20 MEQ) BY MOUTH 3 TIMES DAILY. DO NOT CRUSH OR CHEW. active Not Available Not Available No t Available famotidine 20 mg tablet TAKE 1 TABLET BY MOUTH TWICE A DAY active Not Available Not Available No t Available baclofen 10 mg tablet TAKE 1 TABLET BY MOUTH THREE TIMES A DAY active Not Available Not Available No t Available oseltamivir 75 mg capsule TAKE 1 CAPSULE BY MOUTH EVERY 12 HOURS FOR 5 DAYS 02/06 completed Not Available Not Available Not Available lisinopril 10 mg tablet TAKE 1 TABLET BY MOUTH EVERY DAY IN THE MORNING active Not Available Not Available No t Available omeprazole 20 mg capsule,del ayed release TAKE 1 CAPSULE (20 MG) BY MOUTH BEFORE BREAKFAST active Not Available Not Available No t Available diltiazem CD 120 mg capsule,ext ended release 24 hr TAKE 1 CAPSULE BY MOUTH EVERY DAY FOR 30 DAYS active Not Available Not Available No t Available montelukast 10 mg tablet TAKE 1 TABLET BY MOUTH EVERY DAY IN THE EVENING active Not Available Not Available No t Available hydroxyzine HCl 25 mg tablet TAKE 1 TABLET BY MOUTH TWICE A DAY NEEDED active Not Available Not Available No t Available bisacodyl 5 mg tablet,lori yed release TAKE 2 TABLETS AT 12 PM DAILY STARTING 2 DAYS BEFORE COLONOSCO PY APPOINTME NT active Not Available Not Available No t Available lisinopril 5 mg tablet TAKE 1 TABLET BY MOUTH EVERY DAY IN THE MORNING active Not Available Not Available No t Available hydrochloro thiazide 25 mg tablet TAKE 1 TABLET BY MOUTH EVERY DAY active Not Available Not Available No t Available metoprolol succinate ER 25 mg tablet,exte nded release 24 hr TAKE 1/2 TABLET BY MOUTH ONCE DAILY active Not Available Not Available No t Available lorazepam 1 mg tablet TAKE 1/2 TO 1 TABLET BY MOUTH 3 TIMES DAILY NEEDED. active Not Available Not Available No t Available ibuprofen 600 mg tablet TAKE 1 TABLET BY MOUTH EVERY 8 HOURS NEEDED FOR MILD/MODE RATE PAIN FOR 10 DAYS 02/06 completed Not Available Not Available Not Available methylpredn isolone 4 mg tablets in a dose pack TAKE 6 TABLETS ON DAY 1 DIRECTED ON PACKAGE AND DECREASE BY 1 TAB EACH DAY FOR A TOTAL OF 6 DAYS active Not Available Not Available No t Available albuterol sulfate HFA 90 mcg/actuati on aerosol inhaler TAKE 2 PUFFS BY MOUTH EVERY 4 TO 6 HOURS NEEDED active Not Available Not Available No t Available ondansetron 4 mg disintegrat ing tablet DISSOLVE 1 TABLET ON TONGUE EVERY 8 HOURS NEEDED FOR FOR NAUSEA/VO MITING active Not Available Not Available No t Available fluticasone propionate 50 mcg/actuati on nasal spray,suspe nsion SPRAY 2 SPRAYS INTO EACH NOSTRIL EVERY DAY NEEDED active Not Available Not Available No t Available loratadine 10 mg tablet TAKE 1 TABLET BY MOUTH EVERY DAY NEEDED FOR ALLERGIES active Not Available Not Available No t Available naproxen 500 mg tablet TAKE 1 TABLET BY MOUTH EVERY MORNING AND 1 TABLET BY MOUTH AT BEDTIME NEEDED FOR MILD PAIN 02/06 completed Not Available Not Available Not Available amoxicillin 875 mg-potassiu m clavulanate 125 mg tablet TAKE 1 TABLET BY MOUTH TWICE A DAY FOR 10 DAYS 02/06 completed Not Available Not Available Not Available cholecalcif carla (vitamin D3) 25 mcg (1,000 unit) capsule TAKE 1 CAPSULE BY MOUTH EVERY DAY active Not Available Not Available No t Available Alcohol Prep Pads USE TO TEST BLOOD SUGAR 2 TIMES DAILY. active Not Available Not Available No t Available Flovent HFA 220 mcg/actuati on aerosol inhaler INHALE 1 PUFF BY MOUTH TWICE A DAY active Not Available Not Available No t Available Anti-Gas Ultra Strength 180 mg capsule TAKE 1 CAPSULE BY MOUTH EVERY DAY WITH MEALS active Not Available Not Available No t Available cholecalcif carla (vitamin D3) 25 mcg (1,000 unit) tablet TAKE 1 TABLET BY MOUTH EVERY DAY active Not Available Not Available No t Available FreeStyle Lite Strips USE TO TEST BLOOD SUGAR 2 TIMES DAILY active Not Available Not Available No t Available FreeStyle Mclean Lite kit USE TO TEST BLOOD SUGAR 2 TIMES DAILY active Not Available Not Available No t Available Align (B.infantis ) 4 mg capsule TAKE 1 CAPSULE BY MOUTH EVERY DAY active Not Available Not Available No t Available Purelax 17 gram/dose oral powder PLEASE SEE ATTACHED FOR DETAILED DIRECTION S active Not Available Not Available No t Available Wegovy 0.25 mg/0.5 mL subcutaneou s pen injector INJECT 0.5 ML (0.25 MG) UNDER THE SKIN 1 (ONE) TIME PER WEEK. active Not Available Not Available No t Available Paxlovid 300 mg (150 mg x 2)-100 mg tablets in a dose pack TAKE 3 TABLETS BY MOUTH TWICE A DAY FOR 5 DAYS 02/06 completed Not Available Not Available Not Available Vitals Date Recorded Oxygen saturation Body temperature Heart rate Respiratory rate Body weight Systolic And Diastolic Provider Name and Address Organization Details Last Updated DateTime 5 96 % 97.3 [degF] 82 /min 18 /min 55492.6 g 141/92 mm[Hg] Not Available [employer] - production 5 16:19:14 Social History None recorded. Functional Status None recorded. Mental Status None recorded. Family History Nothing Reported. Medical History No medical history recorded. Gynecological HistoryNo gynecological history recorded. Obstetrics History GPAL:G 0 P 0 0 0 0 Past Encounters Encounter ID Performer Location Encounter Start Date Encounter Closed Date Diagnosis/Indication Diagnosis SNOMED-CT Code Diagnosis ICD10 Code Diagnosis IMO Codes Diagnosis Note [id number] Uma Vera MD [facility] [address] [phone] 02/06/2025 16:19:10 02/06/2025 22:04:45 Strain of back muscle 576353320 S39.012A [id number] Health Concerns Section Related Observation LastModified by Organization Detai ls LastModified Time None Recorded Concern Status LastModified by Organization Details LastModified Time None Recorded Payers Encounter Date Sequence Insurance Name Policy Number Policy Navarro Covered Member ID Navarro Member ID Guarantor Name 02/06/2025 1 [facility] - DOS ON OR AFTER 2022 - DUAL ELIGIBLE - [employer] AND ONE [employer] (MEDICARE REPLACEMENT/ADV ANTAGE - HMO) Rohini Conner [id number] Rohini Conner Notes Date Note Type Note Provider Name and Address Organization Details Recorded Time 02/06/2025 text/html HPI: Triage call for pain in right hip and leg. Had slipped ( did not fall completely )while walking last night. Patient with pain standing. Able to ambulate with limp. ...................... ...................... ...................... ...................... ...................... ...................... ......... [facility] Nurse Triage Notes (Gasper Lawson): Reason For Request: Extremity pain Chief Complaints: Extremity Pain PMH: COPD/Asthma, Hypertension, Coronary Artery Disease, Gastroesophageal Reflux Disease (GERD), Anxiety Disorder PMH Reviewed at 02/06/2025:57 Allergies Reviewed at 02/06/2025:57 Comments: Reviewed HPI ...................... ...................... ...................... ...................... ...................... ...................... ......... 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 BP:141/92, P:79, RR:18, SpO2:96% RA, T:97.3; Head: unremarkable; Lung sounds: clear bilaterally; Abdomen: soft, non-tender, no distention; Back: right thoracic tenderness radiating right flank; right lumbar tenderness, Extremities: right lateral/posterior hip tenderness; Skin: pink, warm, dry; [facility] consulted and pt is advised she should not take Ibuprofen and unfortunately we cannot administer Toradol injection due to suspected active stomach ulcer. Pt is advised to take Tylenol for pain. [facility] orders Tylenol 1gm PO. [facility] sends script to pt's pharmacy for Tylenol. After talking with [facility], pt states she has acetaminophen at home, but hasn't taken any. Pt is advised Acetaminophen is the same as Tylenol and advised to take Tylenol (or acetaminophen) 1gm TID. Allergies verified: Lisinopril; 5 med rights verified. Red flags discussed. Pt has no further questions. [facility] Medication Orders: acetaminophen 500 mg tablet: Administered ...................... ...................... ...................... ...................... ...................... ...................... ......... [facility] Consulted: Uma Vera ...................... ...................... ...................... ...................... ...................... ...................... ......... Disposition: Fulfilled Uma Vera MD [address] [facility],[address] [facility], [place], [phone], [employer] [facility] 02/06/2025 21:05:16 OBGyn Episode No OBEpisode recorded.
--- OUTSIDE RECORDS SUMMARY | 2025-05-09 14:36 | XMS_ITS | Clinical Summary ---
Author Organization [employer] Address [address] [facility] 7t [place] [address] Care Team Providers Care Finance Administrator Name Role Phone Jamila Robledo MD Primary [...] (pain and swelling). 30 g 2 Active Blood Glucose Monitoring Suppl (FreeStyle Latrobe Lite) w/Device kitIndications: Prediabetes Use to test blood sugar 2 times daily 1 kit Active Alcohol Swabs 70 % padsIndications :Prediabetes Use to test blood sugar 2 times daily 100 each 2 024 Active cetirizine (ZyrTEC) 10 MG tabletIndicatio ns:Seasonal allergic rhinitis, unspecified trigger Take 1 tablet (10 mg) by mouth Once per day. 30 tablet 11 024 Active sharps container 1 each if needed (For lancet disposal after checking blood sugar twice daily). 1 each 11 Active famotidine (Pepcid) 20 MG tabletIndicatio ns:Epigastric pain TAKE 1 TABLET BY MOUTH TWICE A DAY 180 tablet 3 024 Active FreeStyle lancetsIndicati ons:Prediabetes USE TO TEST BLOOD SUGAR 2 TIMES DAILY 100 each 11 024 Active PARoxetine (Paxil) 10 MG tablet TAKE 1 TABLET BY MOUTH EVERY DAY 90 tablet 2 Active medroxyPROGESTE Cory (Provera) 5 MG tabletIndicatio ns:Abnormal vaginal bleeding Take 1 tablet (5 mg) by mouth 3 times daily for 5 days. 15 tablet Active potassium chloride CR (Klor-Con M20) 20 MEQ ER tabletIndicatio ns:Hypokalemia Take 1 tablet (20 mEq) by mouth 3 times daily. Do not crush or chew. 9 tablet 025 2025 Active fluticasone (Flonase) 50 MCG/ACT nasal sprayIndication s:Acute non-recurrent frontal sinusitis SPRAY 2 SPRAYS INTO EACH NOSTRIL EVERY DAY NEEDED 32 mL 2 Active baclofen (Lioresal) 10 MG tablet TAKE [...] daily for 10 days. 30 tablet 025 Active lidocaine (Lidoderm) 5 % patchIndication s:Muscle spasm,Mid back pain on right side,Acute right-sided low back pain without sciatica,Right hip pain Apply 1 patch topically Once per day. Remove & discard patch within 12 hours or as directed by MD. 30 patch 1 025 Active lisinopril 10 MG tabletIndicatio ns:Chronic pansinusitis TAKE 1 TABLET BY MOUTH EVERY DAY IN THE MORNING 90 tablet 1 025 Active glucose blood (FREESTYLE LITE) test stripIndication s:Prediabetes USE TO TEST BLOOD SUGAR TWICE A DAY 100 strip 11 025 Active fluticasone furoate (Arnuity Ellipta) 200 MCG/ACT inhalerIndicati ons:Moderate persistent asthma with acute exacerbation TAKE 1 PUFF BY MOUTH ONCE A DAY 30 each 3 025 Active LORazepam (Ativan) 1 MG tabletIndicatio ns:Anxiety TAKE 1/2 TO 1 TABLET BY MOUTH 3 TIMES DAILY NEEDED. 15 tablet 025 Active albuterol 108 (90 Base) MCG/ACT inhalerIndicati ons:Mild persistent asthma without complication INHALE 2 PUFFS BY MOUTH EVERY 4 TO 6 HOURS NEEDED 18 g 1 025 Active azithromycin (Zithromax) 250 MG tabletIndicatio ns:Chronic pansinusitis Take 2 tabs PO daily x 1d then 1 tab PO daily on D2 to D5 6 tablet 025 Active albuterol 108 (90 Base) MCG/ACT inhalerIndicati ons:Mild persistent asthma without complication INHALE 2 PUFFS BY MOUTH EVERY 4 TO 6 HOURS NEEDED 18 g 1 025 2024 Discontinued(R eorder (will not trigger notification to Pharmacy)) azithromycin (Zithromax) 250 MG tabletIndicatio ns:Chronic pansinusitis Take 2 tabs PO daily x 1d then 1 tab PO daily on D2 to D5 6 tablet 025 2024 Discontinued(R eorder (will not trigger notification to Pharmacy)) Active Problems Problem Noted Date Diagnosed Date Epicondylitis elbow, medial, left 03/31/2025 Assessment & Plan (03/31/2025 9:35 AM EDT): I will prescribe today prednisone 60 mg once a day for 5 days I will let her know if this is not helping to wait 1 day take some Tylenol and then she can go back to the walk-in clinic for possible Toradol injection if it is needed Patient already referred to orthopedics she has an appointment on May 20, 2025 Moderate persistent asthma with acute exacerbati on 03/31/2025 Assessment & Plan (03/31/2025 9:36 AM EDT): Albuterol inhaler 2 puff every 4-6 hours as needed I will prescribe for her prednisone 60 mg for 5 days I also refilled her Arnuity Ellipta I advised to use it after she feels better every day Short-term memory loss 03/31/2025 Muscle spasm 02/13/2025 Assessment & Plan (02/13/2025 [...] on right side 02/13/2025 Assessment & Plan (03/31/2025 9:35 AM EDT): Continue with physical therapy Assessment & Plan (02/13/2025 3:29 PM EDT): [...] (major depressive disord er), recurrent episode, moderate ([facility]/HCC) 10/28/2024 Nasal polyps 09/15/2024 Assessment & Plan (03/31/2025 9:34 AM EDT): ENT referral information will be provided Assessment & Plan (09/15/2024 12:14 PM EDT): [...] bleeding x2 days. Not currently established with [facility]. Abdominal exam benign. -ordered CBC, TSH, iron panel, and BMP. -ordered transvaginal US -referred to [facility] -prescribed medroxyPROGESTERone 5 mg, TID x5days Right [...] Encounters Date Type Department Care Team Description 04/27/2025 Refill [facility] [address] [place] [address] Jamila Robledo MD Chronic pansinusitis 04/20/2025 Refill [facility] [address] [place] [address] Jamila Robledo MD Mild persistent asthma without complication 04/20/2025 Refill [facility] [address] [place] [address] Jamila Robledo MD Chronic pansinusitis 04/20/2025 Refill [facility] [address] [place] [address] Jamila Robledo MD Muscle spasm; Mid back pain on right side; Acute right-sided low back pain without sciatica; Right hip pain 04/20/2025 Refill [facility] [address] [place] [phone] Jamila Robledo MD Prediabetes 04/07/[address] [address] Jamila Robledo MD Anxiety 03/31/2025 9:00 AM EDT Telemedicine [address] [address] Jamila Robledo MD Dietary counseling (Primary Dx); Exercise counseling; Nasal polyps; Mid back pain on right side; Epicondylitis elbow, medial, left; Moderate persistent asthma with acute exacerbation; Short-term memory loss 03/31/2025 Travel 03/31/2025 Refill [facility] [address] [place] [phone] Jamila Robledo MD Prediabetes 03/30/[address] [address] Jamila Robledo MD Chart Prep 03/30/[address] [address] Jamila Robledo MD Telephone Call 03/18/2025 9:00 AM EDT [facility] [address] [address] Karen Lopez MD Epicondylitis elbow, medial, left (Primary Dx) 03/18/2025 Travel 03/17/2025 Refill [facility] [address] [place] [address] Jamila Robledo MD Chronic pansinusitis 02/13/2025 2:00 PM EDT Office Visit [facility] [address] [place] [phone] Jamila Robledo MD Muscle spasm (Primary Dx); Cough in adult patient; Mid back pain on right side; Acute right-sided low back pain without sciatica; Right hip pain; Chronic pansinusitis 02/13/2025 Travel 02/09/2025 Refill [facility] [address] [place] [address] Jamila Robledo MD Hypokalemia 02/09/2025 Telephone [facility] [address] [place], [place] [phone] Jamila Robledo MD Prior Authorization ([facility]: Hydrochlorothiazide) 02/06/2025 Telephone [facility] [address] [place] [address] Jamila Robledo MD Nurse Triage from Last 3 Months Immunizations Immunization Administration [...] Sign Reading Time Taken Comments Blood Pressure 138/80 03/18/2025 8:56 AM EDT Pulse 74 03/18/2025 8:56 AM EDT Temperature 36.3 C (97.4 F) 03/18/2025 8:56 AM EDT Respiratory Rate 16 03/18/2025 8:56 AM EDT Oxygen Saturation 96% 02/13/2025 1:41 PM EDT Inhaled Oxygen Concentration - - Weight 83 kg (183 lb) 03/18/2025 8:56 AM EDT Height 160 cm (5' 3 ) 03/18/2025 8:56 AM EDT Body Mass Index 32.42 03/18/2025 8:56 AM EDT Plan of Treatment Health Maintenance Due Date Last Done Comments CT Colonography 1975 FIT DNA/Cologuard 1975 FIT 1975 FOBT 1975 HIV Screening 1975 Sigmoidoscopy 1975 Family Planning (PISQ) 1990 Hepatitis B Vaccines (1 of 3 - 19+ 3-dose series) 1994 SDOH Screening 10/17/2024 10/18/2023 COVID-19 Vaccine ( season) 2025 05/02/2021, 09/01/2020 Influenza Vaccine (#1) 2025 02/24/2009 Diabetes: Hemoglobin A1C 03/11/2025 024, 01/08/2024, 10/07/2020 Zoster Vaccines (1 of 2) 2025 Colonoscopy 09/01/2025 09/01/2022 Colorectal Cancer Screening 09/01/2025 Mammogram 01/20/2026 01/20/2025, 08/0 10/2024, 05/01/2022, Additional history exists Disability Screening 02/13/2026 02/13/2025 Tobacco Screening 03/18/2026 03/18/2025 Alcohol/Substance Use Screening 03/31/2026 03/31/2025 Depression Screening 03/31/2026 03/31/2025, 03/31/20 25 Lipid Panel 01/07/2029 01/08/2024, 10/07/2020 Cervical Cancer [...] LIMITED BILATERAL Routine 01/20/2025 12:33 PM EDT HPV DNA, LOW/HIGH RISK Routine [...] PM EDT) Influenza B Negative Negative, Indeterminate [facility] Swab 02/13/2025 1:56 PM EDT us Jamila Beebe MD POINT OF CARE TEST EN TER/EDIT ORDERABLES Final Result [facility] [address] [place] [phone] * Influenza A (ID NOW Rapid Molecular) (02/13/2025 1:56 PM EDT) Influenza A Negative Negative, Indeterminate [facility] Swab 02/13/2025 1:56 PM EDT us Jamila Beebe MD POINT OF CARE TEST EN TER/EDIT ORDERABLES Final Result [facility] [address] [place] [phone] * POCT Rapid COVID Ag (02/13/2025 1:44 PM EDT) Rapid COVID Ag Negative Swab 02/13/2025 1:44 PM EDT us Jamila Beebe MD POINT OF CARE TEST EN TER/EDIT ORDERABLES Final Result * BI US Breast Limited Bilateral (01/20/2025 12:33 PM EDT) Anatomical Region Laterality Modality Breast Bilateral Ultrasound 01/20/2025 12:3 3 PM EDT Narrative 01/20/2025 1:15 PM EDT [address] [place] [address] Ultrasound Report Signed Patient: Rohini Conner MR#: [id number] : 1975 Acct:[id number] Age/Sex: 49 / F ADM Date: 01/20/25 Loc: HO.MAMMO Attending Dr: Jamila Beebe MD Ordering Physician: Margarito Benoit MD Date of Service: 01/20/25 Procedure(s): US breast BI limited mamm only Accession Number(s): [id number] cc: Jamila Robledo MD; Margarito Benoit MD [...] 01/20/25 1313 DD/ 1233 TD/TT: 01/20/25 1246 Aoc Director Intelligence Officer: Procedure Note Donotuseinterpreter, Image - 01/20/2025 [facility] [address] [place] [address] Ultrasound Report Signed Patient: Elham Conner#: [id number] : 1975Acct:[id number] Age/Sex: 49 / FADM Date: 01/20/25 Loc: HO.MAMMO Attending Dr: Jamila Beebe MD Ordering Physician: Margarito Benoit MD Date of Service: 01/20/25 Procedure(s): US breast BI limited mamm only Accession Number(s): [id number] cc: Jamila Robledo MD; Margarito Benoit MD [...] Rene Felder MD 01/20/2025 01:13 PM EDT Workstation: [employer] Dictated By: Rene Felder MD Signed By: <Electronically signed by Rene Felder MD in OV> 01/20/25 1313 DD/ 1233 TD/TT: 01/20/25 1246 Aoc Director Intelligence Officer: [facility] External Provider IMG US PROCEDURES Edited Result - Final * HPV DNA, Low/High Risk (09/10/2024 8:28 AM EDT) HPV High Risk Negative Negative [facility] HPV Genotype 16 Negative Negative [facility] HPV Genotype 18 Negative Negative [facility] Comment:HPV testing performe d at [facility] (CLIA#[id number]), [address] [place] [address].Testing for HPV was performed using the Ginette [...] Provider LAB BLOOD ORDERAB LES Final Result [facility] [address] [place] [phone] * Pap Smear (09/10/2024 8:28 AM EDT) 09/10/2024 8:28 AM EDT 09/11/2024 6:05 AM EDT Narrative [facility] - 09/16/2024 10:22 AM EDT ----- ------- Name: Rohini Conner Age/Sex: 49/F : 1975 Unit#: [id number] Attend Dr: Margarito Benoit MD Re09/10/24 Status: [facility] Location: [facility] Disch: ----- ------- SPEC : [id number] RECD: 09/11/24 STATUS: COOPER GARCÍA NUM: [id number] LAVELL: 09/10/[address] [facility] [address]: Margarito Benoit MD ENTERED: 09/11/24 SP TYPE: Pap Smr OTHR DR: Jamila Robledo MD ORDERED: Pap Smear Interpretation Satisfactory for evaluation. Negative for intraepithelial lesion or malignancy. Scant cellularity. HPV High Risk: Negative HPV Genotyping 16: Negative HPV Genotyping 18: Negative Clinical Information LMP: UNK Previous PAP test: UNK Other surgery: Other history: Material Received ThinPrep-Cervical Copies To: Jamila Robledo MD [facility] [address] [place] [address] Margarito Benoit MD [facility] [address] [place] [address] ----- ------- Signed (signature on file) TEGAN Tobias (ASCP) 09/16/24 1022 ----- ------- END OF REPORT Generic External Data Provider LAB CYTOLOGY ORDE RABLES Final Result [facility] [address] [place] [phone] * Hepatitis C Ab (04/03/2024 11:38 AM EDT) Hepatitis C Antibody Nonreactive Nonreactive [facility] Comment:Antibodies to HCV no t detected; does not exclude early acuteHCV infection. 04/03/2024 11:3 8 AM EDT 04/03/2024 11:48 AM EDT Generic External Data Provider LAB BLOOD ORDERAB LES Final Result [facility] [address] [place] [phone] * (ABNORMAL) POCT HGB A1C (03/11/2024 5:49 PM EDT) Hemoglobin A1C 6.3(A) 4.0 - 6.0 % QC Media Lot # [id number] Lot# Expiration Date 026 Blood 03/11/2024 5:49 PM EDT us Wicho Desai MD POINT OF CARE TEST ENTER/EDIT OR DERABLES Final Result * (ABNORMAL) Lipid Panel, Standard (01/08/2024 12:04 PM EDT) Triglycerides 143 <150 mg/dL [facility] Comment:Desirable Triglyceri de: less than 150 mg/dLBorderline High Triglyceride 150-199 mg/dLHigh Triglyceride: 200-499 mg/dLVery High Triglyceride: greater than or equal to 5OO mg/dL Cholesterol 187 <200 mg/dL [facility] Comment:Desirable Cholestero l: less than 200 mg/dLBorderline High Cholesterol: 200-239 mg/dLHigh Cholesterol: greater than 239 mg/dL LDL Cholesterol Calculated 119(H) <100 mg/dL [facility] Comment:Desirable LDL: less than 100 mg/dLNear Optimal/Above Optimal LDL: 110- 129 mg/dLBorderline High LDL: 130-159 mg/dLHigh LDL: 160-189 mg/dLVery High LDL: greater than or equal to 190 mg/dL HDL Cholesterol 40(L) >40 mg/dL [facility] Comment:Desirable HDL: great er than 40 mg/dL Note: This HDL assay may give artificially low results in patients with liver disease. Blood Venous blood specimen / Unknown 01/08/2024 12:04 PM EDT 01/08/2024 1:04 PM EDT us Jamila Beebe MD LAB BLOOD ORDERABLES Final Result [facility] [address] [place] [phone] * Hm Colonoscopy (09/01/2022 9:48 AM EDT) Colonoscopy Normal Normal Narrative Beatrice Arora - 09/01/2022 9:48 AM EDT Repeat in 3 years see the external hospital admission note on 09/01/2022 us Historical Provider HEALTH MAINTENANCE Edited Result - Final from Last 3 Months or Most Recently Relevant to Health Maintenance Insurance [facility] < 65 Care Teams Finance Administrator Relationship Specialty Start Date End Date Jamila Robledo MD [address] [place] [phone] PCP - General Family Medicine 05/02/19
--- OUTSIDE RECORDS SUMMARY | 2025-05-09 14:36 | XMS_ITS | Encounter Summary ---
Author Organization [employer] Address [address] [facility] [address] 7[address] [place] [address] Care Team Providers Care Phlebotomy Supervisor Name Role Phone Jamila Robledo MD Primary Care Provide r Reason for Visit * Reason Comments Med Refill Encounter Details Date Type Department Care Team ([facility] st Contact Info) Description 08/18/2024 Refill [facility] [address] [place], [place] [phone] Jamila Robledo MD [address] [place] [address] Acute non-recurrent frontal sinusitis Social History Tobacco [...] documented as of this encounter Care Teams Phlebotomy Supervisor Relationship Specialty Start Date End Date Jamila Robledo MD [address] [place] [phone] PCP - General Family Medicine 05/02/19 documented as of this encounter
--- OUTSIDE RECORDS SUMMARY | 2025-05-09 14:36 | XMS_ITS | Encounter Summary ---
Author Organization [employer] Address [address] [place] [address] 7t [place] [address] Care Team Providers Care Refrigeration Manager Name Role Phone Jamila Robledo MD Primary Care Provide r Reason for Visit * Reason Comments Med Refill Encounter Details Date Type Department Care Team ([facility] st Contact Info) Description 11/28/2022 Refill [facility] [address] [place], [place] [phone] Jamila Robledo MD [address] [place] [address] Acute non-recurrent frontal sinusitis Social History Tobacco [...] as of this encounter Care Teams Refrigeration Manager Relationship Specialty Start Date End Date Jamila Robledo MD [address] [place] [address] PCP - General Family Medicine 05/02/19 documented as of this encounter
--- OUTSIDE RECORDS SUMMARY | 2025-05-09 14:36 | XMS_ITS | Encounter Summary ---
Author Organization [employer] Address [address] [place] [address] [address]t [place] [address] Care Team Providers Care Director Of Learning Name Role Phone Jamila Robledo MD Primary Care Provide r Reason for Visit * Reason Comments Med Refill Encounter Details Date Type Department Care Team ([facility] st Contact Info) Description 01/19/2023 Refill [facility] [address] [place], [place] [phone] Liza Matos FNP Psychophysiological insomnia Social History [...] of this encounter Care Teams Director Of Learning Relationship Specialty Start Date End Date Jamila Robledo MD [address] [place], [place] [phone] PCP - General Family Medicine 05/02/19 documented as of this encounter
--- OUTSIDE RECORDS SUMMARY | 2025-05-09 14:36 | XMS_ITS | Encounter Summary ---
Author Organization [employer] Address [address] [facility] [address]t [place] [address] Care Team Providers Care Antique Clocks Repairer Name Role Phone Jamila Robledo MD Primary Care Provide r Reason for Visit * Reason Comments Med Change Request Encounter Details Date Type Department Care Team ([facility] Contact Info) Description 12/13/2024 Refill [facility] [address] [place] [address] Jamila Robledo MD [address] [place] [address] Social History Tobacco Use Types Packs/Day Years [...] documented as of this encounter Care Teams Antique Clocks Repairer Relationship Specialty Start Date End Date Jamila Robledo MD [address] [place] [address] PCP - General Family Medicine 05/02/19 documented as of this encounter
--- OUTSIDE RECORDS SUMMARY | 2025-05-09 14:36 | XMS_ITS | Encounter Summary ---
Author Organization [employer] Address [address] [facility] 7t [place] [address] Care Team Providers Care Stripper And Taper Name Role Phone Jamila Robledo MD Primary Care Provide r Encounter Details Date Type Department Care Team ([facility] Contact Info) Description 03/18/2024 Orders Only [facility] [address] [place], [place] [phone] Jamila Robledo MD [address] [place] [address] Social History Tobacco Use Types Packs/Day Years [...] documented as of this encounter Care Teams Stripper And Taper Relationship Specialty Start Date End Date Jamila Robledo MD [address] [place] [address] PCP - General Family Medicine 05/02/19 documented as of this encounter
--- OUTSIDE RECORDS SUMMARY | 2025-05-09 14:36 | XMS_ITS | Data Portability ---
Author Organization [employer] [facility], [facility] Address [address] [place] [address] Care Team Providers Care Residential Therapist Name Role Phone Unavailable Referring Provider [facility] Referring Provider Assessment Encounter Date Assessment Date Assessment LastModified by Organization Details LastModified Time 11/14/2022 11/14/2022 As noted, we were called to see this patient regarding concerns of sinus congestion. Evaluation in the field was performed by my dental laboratory assistant colleague, as noted above, I provided real-time [...] We discussed the need to seek care urgently/emergen tly in the setting of any new or worsening serious symptoms, particularly fever, unresolving headaches despite meds, vision changes, altered mental status. [email or web address] Not available 11/14/2022 15:14:51 02/06/2025 02/06/2025 service called for back and [...] return to ptimary team and GI care [email or web address] Not available 02/06/2025 16:42:37 Plan of Treatment Reminders Order Date Submit Date Provider Last Modified By Organization Details Last Modified Time Details Appointments None recorded. Lab None recorded. Referral None recorded. Procedures None recorded. Surgeries None recorded. Imaging None recorded. Medication Orders acetaminoph en 500 mg tablet 2024 025 [facility]armacy #[id number], [address] [place], [address], 5 05:01:03 acetaminoph en 500 mg tablet 2024 025 [id number] [address] [place], [address], 5 05:01:03 Paxlovid 300 mg (150 mg x 2)-100 mg tablets in a dose pack 2022 023 [email or web address] [facility]/Pharmacy #[id number], [address] [place], [address], 5 16:23:10 Patient TargetsNo targets recorded. Patient InstructionsNo instructions recorded. Reason for Referral None Reported. Problems Name Problem SNOMED Code Status Onset Date Resolution Date Notes Provider Name and Address Organization Details Recorded Time Gastric ulcer 418895605 Active 025 Uma Vera MD [address] [facility],[address], [place], [address] , [employer] 5 16:36:11 Problem Notes None recorded. Medical Equipment [...] Available Not Available No t Available [employer] Molina Lite kit USE TO TEST BLOOD SUGAR [...] Not Available Not Available Vitals Date Recorded Body temperature Body weight Oxygen saturation Respiratory rate Heart rate Systolic And Diastolic Provider Name and Address Organization Details Last Updated DateTime 3 97.1 [degF] 46477.2 4 g 97 % 16 /min 76 /min 163/96 mm[Hg] Not Available [employer] 3 14:04:45 Date Recorded Body weight Body height Body temperature Oxygen saturation Heart rate Respiratory rate Systolic And Diastolic Provider Name and Address Organization Details Last Updated DateTime 3 36630.6 4 g 157.48 cm 97.8 [degF] 95 % 61 /min 18 /min 124/80 mm[Hg] Not Available [employer] 3 11:16:46 Date Recorded Oxygen saturation Body temperature Heart rate Respiratory rate Body weight Systolic And Diastolic Provider Name and Address Organization Details Last Updated DateTime 5 96 % 97.3 [degF] 82 /min 18 /min 01675.6 g 141/92 mm[Hg] Not Available [employer] 5 16:19:14 Date Recorded Oxygen saturation Respiratory rate Body weight Body temperature Heart rate Body height Systolic And Diastolic Provider Name and Address Organization Details Last Updated DateTime 3 97 % 18 /min 69123.6 8 g 98.4 [degF] 83 /min 157.48 cm 134/82 mm[Hg] Not Available [employer] 3 13:02:00 Social History None recorded. Functional Status None recorded. Mental Status None recorded. Family History Nothing Reported. Medical History No medical history recorded. Gynecological HistoryNo gynecological history recorded. Obstetrics History GPAL:G 0 P 0 0 0 0 Past Encounters Encounter ID Performer Location Encounter Start Date Encounter Closed Date Diagnosis/Indication Diagnosis SNOMED-CT Code Diagnosis ICD10 Code Diagnosis IMO Codes Diagnosis Note [id number] Sneha Cintron MD [facility] [address] [place] [phone] 11/09/2022 14:04:34 11/10/2022 14:20:47 Acute bacterial sinusitis 61580042 J01.90 47 year old female, being evaluated [...] y changing to an alternativ e regimen. [id number] NEELAM ALVARADO MD [facility] - [address] [phone] 11/14/2022 11:16:43 11/15/2022 09:34:22 Congestion of nasal sinus 67539448 R09.81 [id number] Bam Luo MD [facility] - [address] [phone] 05/06/2023 13:01:58 05/06/2023 16:22:04 COVID-19 957948613 U07.1 47yo woman presents with URI symptoms [...] levels expected to be safe. Acute COVID-19 697443758 8 U07.1 We discussed the benefit of Paxlovid to reduce the risk of hospitaliz ation and , and the potential downsides/ side effects, including dysgeusia, headache, COVID rebound, and the possibilit y of medication interactio ns despite my efforts to review medication s and certified addiction counselor on discontinu ation. We discussed alternativ es, including non-specif ic supportive care and referral for infusion. We felt this plan to be preferable . [id number] Uma Vera MD [facility] [address] [phone] 02/06/2025 16:19:10 02/06/2025 22:04:45 Strain of back muscle 633329416 S39.012A [id number] Health Concerns Section Related Observation LastModified by Organization [employer] LastModified Time None Recorded Concern Status LastModified by Organization Details LastModified Time None Recorded Advance Directives Directive None Recorded Payers Insurance Date Sequence Insurance Name Policy Number Policy Navarro Covered Member ID Navarro Member ID Guarantor Name 05/02/2025 1 [facility] - DOS ON OR AFTER 2022 - DUAL ELIGIBLE - ALF OPTIONS AND ONE CARE (MEDICARE REPLACEMENT/ADV ANTAGE - HMO) Rohini Conner [id number] Rohini Conner Notes Date Note Type Note Provider Name and Address Organization Details Recorded Time 11/09/2022 text/html HPI: Patient with history of SVT. Seen by PCP 11/03/22 for sinus infection. has been on Augmentin with no improvement.Sinus congestion yellow mucous. Ear pain resolved. Complaints of dizziness. Was Hypertensive in office 142/91. ...................... ...................... ...................... ...................... ...................... ...................... ......... CRC Nursing Assessment: Comments: CRC RN did not require any additional information to process this visit. Sneha Cintron MD [address] [facility],[address], [place], [address], [employer] 11/09/2022 14:09:36 11/14/2022 text/html CRC Nursing Assessment: Reason For Request: Follow up visit>Sinus infection, which has not gotten better. Chief Complaints: URI PMH: COPD/Asthma, Hypertension, Heart Disease Allergies: No Known Comments: Member was seen by ines last week. Member was on antibiotic amoxicillin and completed the course. Member continues to be congested, mild cough from being dry. Member has chills no fever but has pain and sinus pressure . Member has sob when sleeping and has to sleep upright Verified identity by ...................... ...................... ...................... ...................... ...................... ...................... ......... Cardiovascular Radiologic Technologist Note From Racheal Singleton: Sent to a call for a pt requesting follow up due to sinus infection. SC8 arrives on scene, pt is alert and oriented, airway is patent. Pt states she was evaluated by [email or web address]ed, prescribed amoxicillin x 7 days for sinus [...] unremarkable; Extremities: unremarkable; Skin: pink, warm, dry; [facility] consulted and states pt was prescribed actually prescribed Augmentin x 10 days. Pt expresses Zertec D seems to be ineffective. [facility] suggests changing to Shi and offers to send script for Shi and Saline nasal spray. Pt declines stating she's tried Shi and has Saline nasal spray. Pt advised to follow up with PCP for further evaluation. [facility] sends follow up request to pt's care team. Red flags discussed. Pt has no further questions. ...................... ...................... ...................... ...................... ...................... ...................... ......... Disposition: Fulfilled NEELAM ALVARADO MD [address] [place] [address],[address], [place], [address], [employer] 11/14/2022 15:15:16 05/06/2023 text/html ROS as noted in the HPI HPI: I tested positive for covid, my head really hurts u have a terrible sinus I'm coughing body aches and weak being taking motrin and flu tea I need more meds ...................... ...................... ...................... ...................... ...................... ...................... ......... CRC Nursing Assessment: Reason For Request: +covid [...] like to be evaluated for an abx. ...................... ...................... ...................... ...................... ...................... ...................... ......... Cardiovascular Radiologic Technologist Note From Yosi Araujo: [facility] visit for female patient with positive home [...] for symptoms with some improvement. Consulted with [facility] Dr. Luo who prescribed paxlovid for patients symptoms. Prescription sent to patients pharmacy. Patient education provided and encouraged to continue with home remedies as well. ...................... ...................... ...................... ...................... ...................... ...................... ......... Disposition: Fulfilled Bam Luo MD [address] [facility],[address], [place], [address], [facility] [employer] 05/06/2023 13:08:00 02/06/2025 text/html HPI: Triage call for pain [...] ...................... ...................... ...................... ...................... ...................... ...................... ......... Cardiovascular Radiologic Technologist Note From Racheal Singleton: Sent to a [...] lateral/posterior hip tenderness; Skin: pink, warm, dry; [facility] consulted and pt is advised she should not take Ibuprofen and unfortunately we cannot administer Toradol injection due to suspected active stomach ulcer. Pt is advised to take Tylenol for pain. [facility] orders Tylenol 1gm PO. [facility] sends script to pt's pharmacy for Tylenol. After talking with [facility], pt states she has acetaminophen at home, but hasn't taken any. Pt is advised Acetaminophen is the same as Tylenol and advised to take Tylenol (or acetaminophen) 1gm TID. Allergies verified: Lisinopril; 5 med rights verified. Red flags discussed. Pt has no further questions. [facility] Medication Orders: acetaminophen 500 mg tablet: Administered ...................... ...................... ...................... ...................... ...................... ...................... ......... [facility] Consulted: Uma Vera ...................... ...................... ...................... ...................... ...................... ...................... ......... Disposition: Fulfilled Uma Vera MD [address] [place] [address],[address], [place], [address], [employer] [facility] 02/06/2025 21:05:16 OBGyn Episode No OBEpisode recorded.
--- OUTSIDE RECORDS SUMMARY | 2025-05-09 14:36 | XMS_ITS | Encounter Summary ---
Author Organization [facility] [employer] Address [address] [facility] [address] [place] [address] Care Team Providers Care Quick Sketch Artist Name Role Phone Jamila Robledo MD Primary Care Provide r Reason for Visit * Reason Onset Date Comments Med Change Request 03/11/2024 Encounter Details Date Type Department Care Team ([facility] Contact Info) Description 03/11/2024 Telephone [facility] MED[facility]INE [address] [place], [place] [phone] Jamila Robledo MD [address] [place] [address] Med Change Request Social History Tobacco Use [...] documented as of this encounter Care Teams Quick Sketch Artist Relationship Specialty Start Date End Date Jamila Robledo MD [address] [place] [phone] PCP - General Family Medicine 05/02/19 documented as of this encounter
--- OUTSIDE RECORDS SUMMARY | 2025-05-09 14:36 | XMS_ITS | Encounter Summary ---
Author Organization [employer] Address [address] [facility] [address] [place] [address] Care Team Providers Care Customer Energy Specialist Name Role Phone Jamila Robledo MD Primary Care Provide r Reason for Visit * Reason Onset Date Comments Med Refill 04/20/2025 Encounter Details Date Type Department Care Team ([facility] Contact Info) Description 04/20/2025 Refill [facility] [address] [place] [address] Jamila Robledo MD [address] [place] [address] Muscle spasm; Mid back pain on right side; Acute right-sided low back pain without sciatica; Right hip pain Social History Tobacco Use Types Packs/Day Years [...] as of this encounter Visit Diagnoses Diagnosis Muscle spasm Spasm of muscle Mid back pain on right side Acute right-sided low back pain without sciatica Right hip pain Pain in joint, pelvic region and thigh documented in this encounter Additional Health Concerns Assessment Noted Time PHQ-9 Depression Total Score: 0 03/31/20 25 9:05 AM EDT documented as of this encounter Care Teams Customer Energy Specialist Relationship Specialty Start Date End Date Jamila Robledo MD [address] [place] [address] PCP - General Family Medicine 05/02/19 documented as of this encounter
--- OUTSIDE RECORDS SUMMARY | 2025-05-09 14:36 | XMS_ITS | Encounter Summary ---
Author Organization [employer] Address [address] [facility] [address] [place] [address] Care Team Providers Care Potato Seed Cutter Name Role Phone Jamila Robledo MD Primary Care Provide r Reason for Visit * Reason Comments Med Change Request Encounter Details Date Type Department Care Team ([facility] Contact Info) Description 06/28/2023 Refill [facility] [address] [place], [place] [phone] Ruth Costello FNP [address] [place] [address] Upper back pain on left side Social [...] documented as of this encounter Care Teams Potato Seed Cutter Relationship Specialty Start Date End Date Jamila Robledo MD [address] [place] [address] PCP - General Family Medicine 05/02/19 documented as of this encounter
--- OUTSIDE RECORDS SUMMARY | 2025-05-09 14:36 | XMS_ITS | Encounter Summary ---
Author Organization [employer] Address [address] [facility] [address] [place] [address] Care Team Providers Care Locomotive Crane Engineer Name Role Phone Jamila Robledo MD Primary Care Provide r Encounter Details Date Type Department Care Team ([facility] Contact Info) Description 09/16/[address] [facility] [address] [place] [address] Provider, MD Armen Social History Tobacco Use [...] documented as of this encounter Care Teams Locomotive Crane Engineer Relationship Specialty Start Date End Date Jamila Robledo MD [address] [place] [address] PCP - General Family Medicine 05/02/19 documented as of this encounter
--- OUTSIDE RECORDS SUMMARY | 2025-05-09 14:36 | XMS_ITS | Encounter Summary ---
Author Organization [employer] Address [address] [facility] [address] [place] [address] Care Team Providers Care Facility Service Associate Name Role Phone Jamila Robledo MD Primary Care Provide r Encounter Details Date Type Department Care Team ([facility] Contact Info) Description 10/15/2024 Orders Only [facility] MEDICINE [address] [place] [address] ProviderArmen MD Social History Tobacco Use Types [...] documented as of this encounter Care Teams Facility Service Associate Relationship Specialty Start Date End Date Jamila Robledo MD [address] [place] [address] PCP - General Family Medicine 05/02/19 documented as of this encounter
--- OUTSIDE RECORDS SUMMARY | 2025-05-09 14:36 | XMS_ITS | Encounter Summary ---
Author Organization [employer] Address [address] [facility] [address] [place] [address] Care Team Providers Care Quality Review Trainer Name Role Phone Jamila Robledo MD Primary Care Provide r Reason for Visit * Reason Onset Date Comments Med Refill 04/20/2025 Encounter Details Date Type Department [facility] Description 04/20/2025 Refill [facility] MED[facility] [address] [place] [address] Jamila Robledo MD [address] [place] [address] Prediabetes Social History Tobacco Use Types Packs/Day Years [...] as of this encounter Visit Diagnoses Diagnosis Prediabetes Other abnormal glucose documented in this encounter Additional Health Concerns Assessment Noted Time PHQ-9 Depression Total Score: 0 03/31/20 25 9:05 AM EDT documented as of this encounter Care Teams Quality Review Trainer Relationship Specialty Start Date End Date Jamila Robledo MD [address] [place] [id number] PCP - General Family Medicine 05/02/19 documented as of this encounter
--- OUTSIDE RECORDS SUMMARY | 2025-05-09 14:36 | XMS_ITS | Encounter Summary ---
Author Organization [employer] Address [address] [facility] [address] [place] [address] Care Team Providers Care Auto Transmission Technician Name Role Phone Jamila Robledo MD Primary Care Provide r Reason for Visit * Reason Comments Med Refill Encounter Details Date Type Department Care Team ([facility] st Contact Info) Description 08/08/2023 Refill [facility] MEDICINE [address] [place], [place] [phone] Jamila Robledo MD [address] [place], [place] [phone] Psychophysiological insomnia Social History Tobacco Use Types [...] documented as of this encounter Care Teams Auto Transmission Technician Relationship Specialty Start Date End Date Jamila Robledo MD [address] [place] [phone] PCP - General Family Medicine 05/02/19 documented as of this encounter
--- OUTSIDE RECORDS SUMMARY | 2025-05-09 14:36 | XMS_ITS | Encounter Summary ---
Author Organization [email or web address] Address [address] [facility] [address] [place] [address] Care Team Providers Care Machine Finisher Name Role Phone Jamila Robledo MD Primary Care Provide r Reason for Visit * Reason Comments Med Change Request Encounter Details Date Type Department Care Team ([facility] Contact Info) Description 07/17/2023 Refill [facility] [address] [place], [place] [phone] Ruth Costello FNP [address] [place] [address] Social History Tobacco Use Types Packs/Day Years [...] documented as of this encounter Care Teams Machine Finisher Relationship Specialty Start Date End Date Jamila Robledo MD [address] [place] [address] PCP - General Family Medicine 05/02/19 documented as of this encounter
== END 2025-05-09 15:07 | disposition home or self-care (01) ==
LOC: HO.HMCWIC 14:33
PROVIDERS: PCP Internal Medicine; Visit Provider Family Medicine
DX: M77.02 Medial epicondylitis, left elbow (principal)

== ENCOUNTER → 2025-05-09 | Outpatient (BNVA) | payer OTHER, SELFPAY | PROVIDERS: PCP Internal Medicine; Visit Provider Family Medicine | DX: M77.02 Medial epicondylitis, left elbow (principal) | CPT/HCPCS: 99212 ==

== ENCOUNTER 2025-05-20 11:29 | Outpatient (REF) | payer OTHER, SELFPAY ==
--- NOTE | ~2025-05-20 | XR_ITS ---
EXAMINATION: XR ELBOW, LEFT CLINICAL INFORMATION: M25.522 - Pain in left elbow COMPARISON: None available. TECHNIQUE: AP, lateral, and oblique views of the left elbow. FINDINGS: No visible acute fracture, dislocation or suspicious bony lesion. Small medial humeral epicondyle enthesopathy. Joint spaces are maintained. No significant effusion. No abnormal soft tissue calcification. XR/XR elbow LT min 3V IMPRESSION: Small medial humeral epicondyle enthesopathy. No acute osseous findings Electronically signed by: Loyd Khoury MD 05/21/2025 10:25 AM ROSA
== END 2025-05-20 11:30 | disposition home or self-care (01) ==
LOC: HO.HOSX 11:29
PROVIDERS: PCP Internal Medicine; Visit Provider Physician Assistant
DX: M77.02 Medial epicondylitis, left elbow (principal)
CPT/HCPCS: 20550; 73080; 99212

== ENCOUNTER 2025-05-20 11:29 | Outpatient (AMB) | payer OTHER, SELFPAY ==
[2025-05-20 11:38] VITALS: BMI 34.0
--- NOTE | 2025-05-20 11:38 | A.OFFVIS_ITS ---
Vital Signs 05/20/25 11:38 Height 5 ft 1 in Weight 180 lb BMI 34.0 Intake Visit Reasons: New prob- Left elbow pain Intake Note: Rohini is a 49 year old female who presents today as an established patient for a new problem visit to evaluate left elbow pain. Patient was seen at [facility] [place] [facility] on 05/09/25 due to her pain, she reported injections in the past that has helped. Today patient reports that she is having burning and pinching sensation in her elbow. She was given a toradol injection that had helped for 3 days and the pain returned. Complaints that she is not able to lift items making it difficult to clean. Civil Rights Attorney Required: No Allergies famotidine (FAMOTIDINE) Allergy (Mild, Verified 05/20/25 11:39) HEADACHES ENVIRONMENTAL Allergy (Intermediate, Uncoded 05/09/25 14:40) NASAL CONGESTION HPI HPI New prob- Left elbow pain: Details: 50 yo female presents to the office today for left elbow pain. She states the pain has been present for about 3 months. She was seen at the walk in clinic and was given an injection of toradol which was helpful for about 3 days. She continues to have pain with lifting and repetitive motion. [facility] Medical History (Updated 05/09/25 @ 14:59 by Phi Queen MD) Urinary incontinence, mixed Nasal polyps Abnormal vaginal bleeding Trochanteric bursitis of right hip Right hip pain Prediabetes Hypokalemia Chronic maxillary sinusitis Epigastric pain Chronic pansinusitis Vascular insufficiency Acute non-recurrent frontal sinusitis Rash Callus of foot Allergic rhinitis Bacterial sinusitis Colitis Cramp in limb Decreased thyroid stimulating hormone level Excessive and frequent menstruation Hemorrhoids Pain in finger Concetta-menopause Skin tag Cough Snoring Essential (primary) hypertension Bleeding hemorrhoids Chronic back pain Sleep apnea Depression GERD (gastroesophageal reflux disease) Anxiety Hypertension Asthma Tachycardia Surgical History Tubal ligation status H/O hand surgery Hx of foot surgery History of esophagogastroduodenoscopy (EGD) H/O colonoscopy Family History Father Stomach cancer Social History Household Members: Family Alcohol intake: never Patient Tobacco Use Status: Current everyday Tobacco user Tobacco use type: Cigarette Cigarettes Per Day: 10 Years Smoked: 40 Review of Systems Const All systems reviewed & are unremarkable except as noted in HPI and below Physical Exam Vital Signs: BMI result Body Mass Index 34.0 Const General: cooperative and no acute distress Orientation/consciousness: patient oriented x3 Resp Effort & Inspection: normal respiratory effort and able to speak in complete sentences Cardio Peripheral pulses: Peripheral pulses 2+ throughout Neuro General: patient oriented x3 Extrem Other: Left Elbow skin intact. No erythema or swelling. ROM full without pain. Tenderness over the medial epicondyle and pain with resisted wrist flexion. NVI. Office Procedures AMB Joint Injection/Aspiration Joint Injection/Aspiration Primary Site: Left Tennis Elbow Prep: site was prepped using aseptic technique, ethochloride spray was applied and injection warnings given Injected: 40 mg of, Decadron, with 1 mL of and 1% plain Lidocaine Procedure: The patient tolerated the procedure well and there was some relief with the local anesthesia Coding 99724 - Epicondyle Procedure code (CPT) selection complete Results Reviewed Results Reviewed: Xrays were obtained in the office today and personally reviewed by me of the left elbow are negative for acute fracture or dislocations. No bony abnormalities Assessment & Plan Assessment & Plan (1) Medial epicondylitis, left elbow: Code(s): M77.02 - Medial epicondylitis, left elbow Category: Medical Plan: We discussed options today, which include steroid injection. The patient did consent to move forward with the injection, which was tolerated well.? I recommend OT for strength and conditioning. Modification of activity to help reduce flare ups. I recommended rest, ice and elevation and OTC antiinflammatories prn for discomfort. If symptoms persist over the next 6-8 weeks, they will contact our office, otherwise, prn Orders: Orders XR elbow LT min 3V 05/20/25 M25.522 - Pain in left elbow OT Evaluation and Treatment 05/20/25 M77.02 - Medial epicondylitis, left elbow Coding Level of Care Code Est Pt Level 3 (49476) Complex visit Add On G2211 Diagnoses Medial epicondylitis, left elbow M77.02 CPT Codes Coding - Joint 2: 49002 - Epicondyle ([id number])
--- OUTSIDE RECORDS SUMMARY | 2025-05-20 13:53 | XMS_ITS | Encounter Summary ---
Author Organization [employer] Address [address] [facility] 7t [place] [address] Care Team Providers Care Night Auditor Name Role Phone Jamila Robledo MD Primary Care Provide r Reason for Visit * Reason Onset Date Comments Med Refill 04/20/2025 Encounter Details Date Type Department Care Team ([facility] Contact Info) Description 04/20/2025 Refill [facility] [address] [place] [address] Jamila Robledo MD [address] [place] [address] Chronic pansinusitis Social History Tobacco Use Types [...] documented as of this encounter Care Teams Night Auditor Relationship Specialty Start Date End Date Jamila Robledo MD [address] [place] [phone] PCP - General Family Medicine 05/02/19 documented as of this encounter
--- OUTSIDE RECORDS SUMMARY | 2025-05-20 13:53 | XMS_ITS | Encounter Summary ---
Author Organization [employer] Address [address] [place] [address] 7t [place] [address] Care Team Providers Care Demand Manager Name Role Phone Jamila Robledo MD Primary Care Provide r Reason for Visit * Reason Onset Date Comments Med Refill 04/20/2025 Encounter Details Date Type Department Care Team ([facility] Contact Info) Description 04/20/[address] [facility] [address] [place] [address] Jamila Robledo MD [address] [place] [address] Prediabetes Social History Tobacco Use Types Packs/Day [...] documented as of this encounter Care Teams Demand Manager Relationship Specialty Start Date End Date Jamila Robledo MD [address] [place] [id number] PCP - General Family Medicine 05/02/19 documented as of this encounter
--- OUTSIDE RECORDS SUMMARY | 2025-05-20 13:53 | XMS_ITS | Encounter Summary ---
Author Organization [employer] Address [address] [facility] [address] 7t [place] [address] Care Team Providers Care Field Technical Assistant Name Role Phone Jamila Robledo MD Primary Care Provide r Encounter Details Date Type Department Care Team ([facility] Contact Info) Description 10/15/2024 Orders Only [facility] [address] [place] [address] ProviderArmen MD Social History Tobacco Use Types [...] documented as of this encounter Care Teams Field Technical Assistant Relationship Specialty Start Date End Date Jamila Robledo MD [address] [place] [phone] PCP - General Family Medicine 05/02/19 documented as of this encounter
--- OUTSIDE RECORDS SUMMARY | 2025-05-20 13:53 | XMS_ITS | Encounter Summary ---
Author Organization [employer] Address [address] [facility] 7t [place] [address] Care Team Providers Care Peoplesoft Administrator Name Role Phone Jamila Robledo MD Primary Care Provide r Reason for Visit * Reason Comments Med Change Request Encounter Details Date Type Department Care Team ([facility] Contact Info) Description 12/13/2024 Refill [facility] [address] [place] [address] Jamila Robledo MD [address] [place] [address] Social History Tobacco Use Types Packs/Day Years [...] documented as of this encounter Care Teams Peoplesoft Administrator Relationship Specialty Start Date End Date Jamila Robledo MD [address] [place] [address] PCP - General Family Medicine 05/02/19 documented as of this encounter
--- OUTSIDE RECORDS SUMMARY | 2025-05-20 13:53 | XMS_ITS | Encounter Summary ---
Author Organization [employer] Address [address] 7[address] [place] [address] Care Team Providers Care Child Nutrition Director Name Role Phone Jamila Robledo MD Primary Care Provide r Encounter Details Date Type Department Care Team ([facility] st Contact Info) Description 09/16/2024 Orders Only [facility] [address] [place] [address] Provider, MD Armen Social History Tobacco Use [...] documented as of this encounter Care Teams Child Nutrition Director Relationship Specialty Start Date End Date Jamila Robledo MD [address] [place] [address] PCP - General Family Medicine 05/02/19 documented as of this encounter
--- OUTSIDE RECORDS SUMMARY | 2025-05-20 13:53 | XMS_ITS | Encounter Summary ---
Author Organization [employer] Address [address] [facility] 7t [place] [address] Care Team Providers Care National Business Director Name Role Phone Jamila Robledo MD Primary Care Provide r Reason for Visit * Reason Comments Med Change Request Encounter Details Date Type Department Care Team ([facility] Contact Info) Description 06/28/2023 Refill [facility] [address] [place], [place] [phone] Ruth Costello FNP [address] [place] [address] Upper back pain on left side Social [...] documented as of this encounter Care Teams National Business Director Relationship Specialty Start Date End Date Jamila Robledo MD [address] [place] [phone] PCP - General Family Medicine 05/02/19 documented as of this encounter
--- OUTSIDE RECORDS SUMMARY | 2025-05-20 13:53 | XMS_ITS | Encounter Summary ---
Author Organization [employer] Address [address] [facility] 7t [place] [address] Care Team Providers Care Mixed Crop And Livestock Farm Worker Name Role Phone Jamila Robledo MD Primary Care Provide r Encounter Details Date Type Department Care Team ([facility] Contact Info) Description 03/18/2024 Orders Only [facility] [address] [place], [place] [phone] Jamila Robledo MD [address] [place] [address] Social History Tobacco Use Types Packs/Day Years [...] documented as of this encounter Care Teams Mixed Crop And Livestock Farm Worker Relationship Specialty Start Date End Date Jamila Robledo MD [address] [place] [address] PCP - General Family Medicine 05/02/19 documented as of this encounter
--- OUTSIDE RECORDS SUMMARY | 2025-05-20 13:53 | XMS_ITS | Encounter Summary ---
Author Organization [employer] Address [address] [facility] 7t [place] [address] Care Team Providers Care Fluid Dynamicist Name Role Phone Jamila Robledo MD Primary Care Provide r Reason for Visit * Reason Comments Med Refill Encounter Details Date Type Department Care Team ([facility] st Contact Info) Description 08/18/2024 Refill [facility] [address] [place], [place] [phone] Jamila Robledo MD [address] [place] [address] Acute non-recurrent frontal sinusitis Social History Tobacco [...] documented as of this encounter Care Teams Fluid Dynamicist Relationship Specialty Start Date End Date Jamila Robledo MD [address] [place] [phone] PCP - General Family Medicine 05/02/19 documented as of this encounter
--- OUTSIDE RECORDS SUMMARY | 2025-05-20 13:53 | XMS_ITS | Encounter Summary ---
Author Organization [employer] Address [address] [place] [address] 7t [place] [address] Care Team Providers Care Mellowing Machine Operator Name Role Phone Jamila Robledo MD Primary Care Provide r Reason for Visit * Reason Comments Med Refill Encounter Details Date Type Department Care Team ([facility] st Contact Info) Description 01/19/2023 Refill [facility] [address] [place], [place] [phone] Liza Matos FNP Psychophysiological insomnia Social History [...] documented as of this encounter Care Teams Mellowing Machine Operator Relationship Specialty Start Date End Date Jamila Robledo MD [address] [place], [place] [phone] PCP - General Family Medicine 05/02/19 documented as of this encounter
--- OUTSIDE RECORDS SUMMARY | 2025-05-20 13:53 | XMS_ITS | Encounter Summary ---
Author Organization [employer] Address [address] [place] [address] 7t [place] [address] Care Team Providers Care Felt Cutting Machine Operator Name Role Phone Jamila Robledo MD Primary Care Provide r Reason for Visit * Reason Comments Med Refill Encounter Details Date Type Department Care Team ([facility] st Contact Info) Description 11/28/2022 Refill [facility] [address] [place], [place] [phone] Jamila Robledo MD [address] [place] [address] Acute non-recurrent frontal sinusitis Social History Tobacco [...] documented as of this encounter Care Teams Felt Cutting Machine Operator Relationship Specialty Start Date End Date Jamila Robledo MD [address] [place] [address] PCP - General Family Medicine 05/02/19 documented as of this encounter
--- OUTSIDE RECORDS SUMMARY | 2025-05-20 13:53 | XMS_ITS | Encounter Summary ---
Author Organization [employer] Address [address] [facility] 7t [place] [address] Care Team Providers Care Structural Ironworker Name Role Phone Jamila Robledo MD Primary Care Provide r Reason for Visit * Reason Comments Med Change Request Encounter Details Date Type Department Care Team ([facility] Contact Info) Description 12/01/2024 Refill [facility] [address] [place] [address] Jamila Robledo MD [address] [place] [address] Social History Tobacco Use Types Packs/Day Years [...] documented as of this encounter Care Teams Structural Ironworker Relationship Specialty Start Date End Date Jamila Robledo MD [address] [place] [address] PCP - General Family Medicine 05/02/19 documented as of this encounter
--- OUTSIDE RECORDS SUMMARY | 2025-05-20 13:53 | XMS_ITS | Encounter Summary ---
Author Organization [employer] Address [address] [facility] [address]t [place] [address] Care Team Providers Care Platform Inspector Name Role Phone Jamila Robledo MD Primary Care Provide r Reason for Visit * Reason Comments Med Refill Encounter Details Date Type Department Care Team ([facility] st Contact Info) Description 08/08/2023 Refill [facility] [address] [place], [place] [phone] Jamila Robledo MD [address] [place], [place] [phone] Psychophysiological insomnia Social History Tobacco Use Types [...] documented as of this encounter Care Teams Platform Inspector Relationship Specialty Start Date End Date Jamila Robledo MD [address] [place] [id number] PCP - General Family Medicine 05/02/19 documented as of this encounter
--- OUTSIDE RECORDS SUMMARY | 2025-05-20 13:53 | XMS_ITS | Encounter Summary ---
Author Organization [employer] Address [address] [facility] 7t [place] [address] Care Team Providers Care Inside Sales Manager Name Role Phone Jamila Robledo MD Primary Care Provide r Reason for Visit * Reason Onset Date Comments Med Refill 04/20/2025 Encounter Details Date Type Department Care Team ([facility] Contact Info) Description 04/20/2025 Refill [facility] [address] [place] [address] Jamila Robledo MD [address] [place] [address] Muscle spasm; Mid back pain on right [...] of this encounter Care Teams Inside Sales Manager Relationship Specialty Start Date End Date Jamila Robledo MD [address] [place] [address] PCP - General Family Medicine 05/02/19 documented as of this encounter
--- OUTSIDE RECORDS SUMMARY | 2025-05-20 13:53 | XMS_ITS | Encounter Summary ---
Author Organization [employer] Address [address] [facility] 7t [place] [address] Care Team Providers Care Corporate Job Titles Name Role Phone Jamila Robledo MD Primary Care Provide r Reason for Visit * Reason Comments Med Change Request Encounter Details Date Type Department Care Team ([facility] Contact Info) Description 07/17/2023 Refill [facility] [address] [place], [place] [phone] Ruth Costello FNP [address] [place] [address] Social History Tobacco Use Types Packs/Day Years [...] documented as of this encounter Care Teams Corporate Job Titles Relationship Specialty Start Date End Date Jamila Robledo MD [address] [place] [address] PCP - General Family Medicine 05/02/19 documented as of this encounter
--- OUTSIDE RECORDS SUMMARY | 2025-05-20 13:54 | XMS_ITS | Clinical Summary ---
Author Organization [employer] Address [address] [facility] [address] [place] [address] Care Team Providers Care Customer Manager Name Role Phone Jamila Robledo MD [...] g 2 Active Blood Glucose Monitoring Suppl ([employer] Elberon Lite) w/Device kitIndications: Prediabetes Use to test blood sugar 2 times daily 1 kit Active Alcohol Swabs 70 % padsIndications :Prediabetes Use to test blood sugar 2 times daily 100 each 2 024 Active sharps container 1 each if [...] EVERY DAY 90 tablet 2 025 Active medroxyPROGESTE Cory (Provera) 5 MG [...] DAY NEEDED 32 mL 2 025 Active baclofen (Lioresal) 10 MG [...] D2 to D5 6 tablet 025 Active cetirizine (ZyrTEC) 10 MG tabletIndicatio ns:Seasonal allergic rhinitis, unspecified trigger TAKE 1 TABLET (10 MG) BY MOUTH ONCE PER DAY. 90 tablet 3 025 Active cetirizine (ZyrTEC) 10 MG tabletIndicatio ns:Seasonal allergic rhinitis, unspecified trigger Take 1 tablet (10 mg) by mouth Once per day. 30 tablet 11 024 2024 Discontinued azithromycin (Zithromax) 250 MG tabletIndicatio ns:Chronic pansinusitis [...] (major depressive disord er), recurrent episode, moderate (CMS/HCC) 10/28/2024 Nasal polyps 09/15/2024 Assessment & Plan [...] bleeding x2 days. Not currently established with [employer]. Abdominal exam benign. -ordered CBC, TSH, iron panel, and BMP. -ordered transvaginal US -referred to [employer] -prescribed medroxyPROGESTERone 5 mg, TID x5days Right [...] Encounters Date Type Department Care Team Description 05/10/2025 Refill [facility] [address] [place] [phone] Wicho Desai MD Seasonal allergic rhinitis, unspecified trigger 04/27/2025 Refill [facility] [address] [place] [address] Jamila Robledo MD Chronic pansinusitis 04/20/2025 Refill [facility] [address] [place] [address] Jamila Robledo MD Mild persistent asthma without complication 04/20/2025 Refill [facility] [address] [place] [address] Jamila Robledo MD Chronic pansinusitis 04/20/2025 Refill [facility] [address] [place] [address] Jamila Robledo MD Muscle spasm; Mid back pain on right side; Acute right-sided low back pain without sciatica; Right hip pain 04/20/2025 Refill [facility] [address] [place] [phone] Jamila Robledo MD Prediabetes 04/07/2025 Refill [facility] [address] [place] [phone] Jamila Robledo MD Anxiety 03/31/2025 9:00 AM EDT Telemedicine [facility] [address] [place] [phone] Jamila Robledo MD Dietary counseling (Primary Dx); Exercise counseling; Nasal polyps; Mid back pain on right side; Epicondylitis elbow, medial, left; Moderate persistent asthma with acute exacerbation; Short-term memory loss 03/31/2025 Travel 03/31/2025 Refill [facility] [address] [place] [phone] Jamila Robledo MD Prediabetes 03/30/2025 Telephone [facility] [address] [place] [phone] Jamila Robledo MD Chart Prep 03/30/[address] [phone] Jamila Robledo MD Telephone Call 03/18/2025 9:00 AM EDT Office Visit [facility] [address] [address] Karen Lopez MD Epicondylitis elbow, medial, left (Primary Dx) 03/18/2025 Travel 03/17/2025 Refill [facility] [address] [place], [place] [phone] Jamila Robledo MD Chronic pansinusitis from Last 3 Months Immunizations Immunization Administration [...] 1994 SDOH Screening 10/17/2024 10/18/2023 COVID-19 Vaccine (2024- season) 2025 05/02/2021, 09/01/2020 Influenza Vaccine (#1) 2025 02/24/2009 Diabetes: Hemoglobin A1C 03/11/2025 024, 01/08/2024, 10/07/2020 RSV Patients and Patients Aged 60 years or older (1 - Risk 50-74 years 1-dose series) 2025 Zoster Vaccines (1 of 2) 2025 Colonoscopy [...] Td or Tdap) 06/20/2032 06/20/2022, 10/14/2012, 12/27/2009 Pneumococcal Vaccine: 50+ Years Completed 11/01/2023, 06/07/2005 Hepatitis C Screening [...] Procedure Name Priority Date/Time Associated Diagnosis Comments BI US BREAST LIMITED BILATERAL Routine 01/20/2025 [...] Recently Relevant to Health Maintenance Results * BI US Breast Limited Bilateral (01/20/2025 12:33 PM EDT) Anatomical Region Laterality Modality Breast Bilateral Ultrasound 01/20/2025 12:3 3 PM EDT Narrative 01/20/2025 1:15 PM EDT [facility] [address] [place] [address] Ultrasound Report Signed Patient: Rohini Conner MR#: [id number] : 1975 Acct:[id number] Age/Sex: 49 / F ADM Date: 01/20/25 Loc: HO.MAMMO Attending Dr: Jamila Beebe MD Ordering Physician: Margarito Benoit MD Date of Service: 01/20/25 Procedure(s): US breast BI limited mamm only Accession Number(s): [id number] cc: Jamila Robledo MD; Margarito Benoit MD [...] 01/20/25 1313 DD/ 1233 TD/TT: 01/20/25 1246 Coat Feller: Procedure Note Donotuseinterpreter, Image - 01/20/2025 [facility] [address] [place] [address] Ultrasound Report Signed Patient: Elham Conner#: [id number] : 1975Acct:[id number] Age/Sex: 49 / FADM Date: 01/20/25 Loc: HO.MAMMO Attending Dr: Jamila Beebe MD Ordering Physician: Margarito Benoit MD Date of Service: 01/20/25 Procedure(s): US breast BI limited mamm only Accession Number(s): [id number] cc: Jamila Robledo MD; Margarito Benoit MD [...] 01/20/25 1313 DD/ 1233 TD/TT: 01/20/25 1246 Coat Feller: [facility] External Provider IMG US PROCEDURES Edited Result - Final * HPV DNA, Low/High Risk (09/10/2024 8:28 AM EDT) HPV High Risk Negative Negative [facility] HPV Genotype 16 Negative Negative [facility] HPV Genotype 18 Negative Negative [facility] Comment:HPV testing performe d at [facility] (CLIA#[id number]), [address] [place] [address].Testing for HPV was performed using the [facility]. The presence of HPV in the female [...] Provider LAB BLOOD ORDERAB LES Final Result [facility] [address] [place] [phone] * Pap Smear (09/10/2024 8:28 AM EDT) 09/10/2024 8:28 AM EDT 09/11/2024 6:05 AM EDT Narrative [facility] - 09/16/2024 10:22 AM EDT ----- ------- Name: Rohini Conner Age/Sex: 49/F : 1975 Unit#: [id number] Attend Dr: Margarito Benoit MD Re09/10/24 Status: DEP REF Location: [facility] Disch: ----- ------- SPEC : [id number] RECD: 09/11/24 STATUS: COOPER GARCÍA NUM: [id number] LAVELL: 09/10/24 [facility] DR: Margarito Benoit MD ENTERED: 09/11/24 SP TYPE: Pap Smr OTHR DR: Jamila Robledo MD ORDERED: Pap Smear Interpretation Satisfactory for evaluation. Negative for intraepithelial lesion or malignancy. Scant cellularity. HPV High Risk: Negative HPV Genotyping 16: Negative HPV Genotyping 18: Negative Clinical Information LMP: UNK Previous PAP test: UNK Other surgery: Other history: Material Received ThinPrep-Cervical Copies To: Jamila Robledo MD [address] [phone] Margarito Benoit MD [facility] [address] [place] [address] Drive [address] [place] [phone] ----- ------- Signed (signature on file) TEGAN Tobias (ASCP) 09/16/24 1022 ----- ------- END OF REPORT Generic External Data Provider LAB CYTOLOGY ORDE RABLES Final Result Performing Organization Address [facility] Co de Phone Number [facility] [address] [place] [phone] * Hepatitis C Ab (04/03/2024 11:38 AM EDT) [facility] Hepatitis C Antibody Nonreactive Nonreactive [facility] Comment:Antibodies to HCV no t detected; does not exclude early acuteHCV infection. 04/03/2024 11:3 8 AM EDT 04/03/2024 11:48 AM EDT Generic External Data Provider LAB BLOOD ORDERAB LES Final Result Performing Organization Address [facility] Co de Phone Number [facility] [address] [place] [phone] * (ABNORMAL) POCT HGB A1C (03/11/2024 5:49 PM EDT) [facility] Hemoglobin A1C 6.3(A) 4.0 - 6.0 % QC Media Lot # [id number] Lot# Expiration Date [id number] Blood 03/11/2024 5:49 PM EDT Wicho Desai MD POINT OF CARE TEST ENTER/EDIT OR DERABLES Final Result * (ABNORMAL) Lipid Panel, Standard (01/08/2024 12:04 PM EDT) [facility] Triglycerides 143 <150 mg/dL [facility] Comment:Desirable Triglyceri de: less than 150 mg/dLBorderline High Triglyceride 150-199 mg/dLHigh Triglyceride: 200-499 mg/dLVery High Triglyceride: greater than or equal to 5OO mg/dL Cholesterol 187 <200 mg/dL [facility] Comment:Desirable Cholestero l: less than 200 mg/dLBorderline High Cholesterol: 200-239 mg/dLHigh Cholesterol: greater than 239 mg/dL LDL Cholesterol Calculated 119(H) <100 mg/dL [facility] Comment:Desirable LDL: less than 100 mg/dLNear Optimal/Above Optimal LDL: 110- 129 mg/dLBorderline High LDL: 130-159 mg/dLHigh LDL: 160-189 mg/dLVery High LDL: greater than or equal to 190 mg/dL HDL Cholesterol 40(L) >40 mg/dL [facility] Comment:Desirable HDL: great er than 40 mg/dL Note: This HDL assay may give artificially low results in patients with liver disease. Blood Venous blood specimen / Unknown 01/08/2024 12:04 PM EDT 01/08/2024 1:04 PM EDT Jamila Bebee MD LAB BLOOD ORDERABLES Final Result [facility] [address] [place] [phone] * Hm Colonoscopy (09/01/2022 9:48 AM EDT) Colonoscopy Normal Normal Narrative Beatrice Arora - 09/01/2022 9:48 AM EDT Repeat in 3 years see the external hospital admission note on 09/01/2022 us Historical Provider HEALTH MAINTENANCE Edited Result - Final from Last 3 Months or Most Recently Relevant to Health Maintenance Insurance [facility] CARE < [address] [place] [id number] Care Teams Customer Manager Relationship Specialty Start Date End Date Jamila Robledo MD [address] [place] [phone] PCP - General Family Medicine 05/02/19
--- OUTSIDE RECORDS SUMMARY | 2025-05-20 13:54 | XMS_ITS | Encounter Summary ---
Author Organization [employer] Address [address] [facility] [address] [place] [address] Care Team Providers Care Supervisor Cigar Making Hand Name Role Phone Jamila Robledo MD Primary Care Provide r Reason for Visit * Reason Onset Date Comments Med Change Request 03/11/2024 Encounter Details Date Type Department Care Team ([facility] Contact Info) Description 03/11/2024 Telephone [facility] [address] [place], [place] [phone] Jamila Robledo MD [address] [place] [address] Med Change Request Social History Tobacco Use [...] as of this encounter Care Teams Supervisor Cigar Making Hand Relationship Specialty Start Date End Date Jamila Robledo MD [address] [place] [phone] PCP - General Family Medicine 05/02/19 documented as of this encounter
== END 2025-05-20 12:20 | disposition home or self-care (01) ==
LOC: HO.HOS 11:29
PROVIDERS: PCP Internal Medicine; Visit Provider Physician Assistant
DX: M77.02 Medial epicondylitis, left elbow (principal)
CPT/HCPCS: 20550; 99213

== ENCOUNTER → 2025-05-20 12:03 | Outpatient (BNV) | payer OTHER, SELFPAY | PROVIDERS: PCP Internal Medicine; Visit Provider Radiology Diagnostic Ultrasound | DX: M77.02 Medial epicondylitis, left elbow (principal) | CPT/HCPCS: 73080 ==